=== PATIENT | female | born 1945 | race Caucasian/White ===

== ENCOUNTER 2016-11-02 18:24 | Emergency (ER) | payer MEDICARE ==
[2016-11-02 18:37] VITALS: BP 138/72
[2016-11-02] MEDS ORDERED: Acetaminophen TAB* 325 MG PO ONE (18:59)
--- NOTE | 2016-11-02 19:48 | RAD ---
INDICATION: Atraumatic pain of the left shoulder COMPARISON: Chest x-ray dated February 16, 2016 TECHNIQUE: PA and lateral views of the chest and 4 views left shoulder were obtained. FINDINGS: The heart and mediastinum are normal in size and contour. Again seen is mild ectatic curvature of the thoracic aorta. The lungs are grossly clear. There is no evidence of large pleural effusion. There is no radiographic evidence of free air beneath the diaphragm 4 views of the left shoulder exhibit the bones to be well corticated and appropriately aligned. No fracture or dislocation is identified. IMPRESSION: 1. NO RADIOGRAPHIC EVIDENCE OF ACUTE CARDIOPULMONARY DISEASE. 2 RADIOGRAPHICALLY NORMAL LEFT SHOULDER.
--- NOTE | 2016-11-02 20:23 | UC ---
Melodie Byrne Edward, scribed for Quentin Mendez MD on 11/02/16 at 1847 . Upper Extremity HPI - HPI Summary HPI Summary: 71 y/o female presents to [facility] c/o LUE pain for the last 3-4 days. The pain starts in the upper L arm and shoots down to the fingers. Pain is described as a shooting pain rated at an 8/10 in severity at triage; it is aggravated by movement of the arm. Patient denies any specific injury. Associated sx: swelling and pain in the L shoulder. Denies neck pain. PMHx arthritis and tendonitis. Patient has taken Advil for pain. - History of Current Complaint Chief Complaint: UCUpperExtremity Stated Complaint: ARM PAIN Time Seen by Provider: 11/02/16 18:45 Hx Obtained From: Patient Onset/Duration: Sudden Onset, Lasting Days - 3-4 days, Still Present Severity Initially: Severe Severity Currently: Severe Pain Intensity: 8 Pain Scale Used: 0-10 Numeric Location Of Pain: Is Discrete @ - L shoulder, Radiates To - Down arm to fingers Character: Sharp - Shooting pain Aggravating Factor(s): Movement Associated Signs And Symptoms: Positive: Swelling - L shoulder - Allergies/Home Medications Allergies/Adverse Reactions: Allergies Allergy/AdvReac Type Severity Reaction Status Date / Time Amoxicillin [From Augmentin] Allergy Rash Verified 11/02/16 18:37 Clarithromycin [From Biaxin] Allergy Rash Verified 11/02/16 18:37 Clavulanic Acid Allergy Rash Verified 11/02/16 18:37 [From Augmentin] Moxifloxacin [From Avelox] Allergy Rash Verified 11/02/16 18:37 Sulfa Drugs Allergy Rash Verified 11/02/16 18:37 Home Medications: Home Medications Aspirin Low Dose CHEW TAB* [Aspirin Low Dose TAB*] 81 mg PO DAILY 11/02/16 [ History Confirmed 11/02/16] Atorvastatin* [Lipitor*] 10 mg PO DAILY 11/02/16 [History Confirmed 11/02/16] Docusate-Senna* PRN 11/02/16 [History] Ibuprofen TAB* [Advil TAB*] 400 mg PO PRN 11/02/16 [History] Mirtazapine TAB* [Remeron TAB*] 15 mg PO PRN 11/02/16 [History] Propranolol TAB* [Inderal TAB*] 10 mg PO DAILY 11/02/16 [History Confirmed 11/02] Tamsulosin CAP* [Flomax CAP*] 0.4 mg PO DAILY 11/02/16 [History Confirmed ] PMH/Surg Hx/FS Hx/Imm Hx - Additional Past Medical History Additional PMH: Positive: arthritis, tendonitis, Previously Healthy: No Cardiovascular History: Hypertension Psychological History: Anxiety, Depression, Other - Dementia Other Psychological History: . Other History Of: Negative For: Anticoagulant Therapy - Surgical History Surgical History: Yes Surgery Procedure, Year, and Place: RIGHT KNEE REPLACEMENT 2012 [place]. LEFT OOPHERECTOMY 20 +YRS AGO. ORIF R HAND [facility] - Family History Known Family History: Positive: Cardiac Disease, Respiratory Disease Negative: Renal Disease - Social History Alcohol Use: Occasionally Substance Use Type: None Smoking Status (MU): Former Smoker Type: Cigarettes Amount Used/How Often: 3 cigs daily Length of Time of Smoking/Using Tobacco: 50 YRS Have You Smoked in the Last Year: No When Did the Patient Quit Smoking/Using Tobacco: 01/05/15 - Immunization History Most Recent Influenza Vaccination: Unknown Most Recent Tetanus Shot: Unknown Most Recent Pneumonia Vaccination: Unknown Review of Systems Constitutional: Negative Skin: Negative Eyes: Negative ENT: Negative Respiratory: Negative Cardiovascular: Negative Gastrointestinal: Negative Genitourinary: Negative Motor: Negative Neurovascular: Negative Musculoskeletal: Arthralgia - L shoulder pain, Edema - L shoulder, Myalgia - L upper arm pain radiating down the arm to the fingers, Other: - Negative: neck pain Neurological: Negative Psychological: Negative All Other Systems Reviewed And Are Negative: Yes Physical Exam Triage Information Reviewed: Yes Appearance: Well-Appearing, Pain Distress - Mild pain distress Vital Signs: Initial Vital Signs Temp 99.4 F 11/02/16 18:31 Pulse 75 11/02/16 18:31 Resp 16 11/02/16 18:31 BP 138/72 11/02/16 18:31 Pulse Ox 97 11/02/16 18:31 Vital Signs Reviewed: Yes Eyes: Positive: Conjunctiva Clear ENT: Positive: Normal ENT inspection Neck: Positive: Supple, Nontender Respiratory: Positive: Lungs clear, Normal breath sounds, No respiratory distress Cardiovascular: Positive: RRR, Pulses Normal, Brisk Capillary Refill Abdomen Description: Positive: Nontender, Soft Musculoskeletal: Positive: Strength Intact - 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 All movements are less on L shoulder compared to R shoulder. Internal rotation with R arm - T5; L arm T12 Neurological Exam: Normal Neurological: Positive: Alert Psychological Exam: Normal Psychological: Positive: Age Appropriate Behavior Skin Exam: Normal Diagnostics - Radiology SHOULDER XRAY Xray Interpretation: No Acute Changes - 1. NO RADIOGRAPHIC EVIDENCE OF ACUTE CARDIOPULMONARY DISEASE. 2 RADIOGRAPHICALLY NORMAL LEFT SHOULDER. Radiology Interpretation Completed By: Radiologist CHEST XRAY Xray Interpretation: No Acute Changes - 1. NO RADIOGRAPHIC EVIDENCE OF ACUTE CARDIOPULMONARY DISEASE. 2 RADIOGRAPHICALLY NORMAL LEFT SHOULDER. Radiology Interpretation Completed By: Radiologist Upper Extremity Course/Dx - Course Course Of Treatment: MEDICATIONS REVIEWED ON VISIT. PAIN WITH SHOULDER ROM. SHOULDER ROM DECREASED. NO WEAKNESS/NUMBNESS ON EXAM. NORMAL PULSE/CAPILLARY REFILL. DISCUSSED RESULTS WITH PATIENT/. PATIENT HAS PARKINSONS SO, NO SLING THIS WOULD INCREASE THE RISK ON INJURY. PATIENT WILL TAKE NSAIDS AND F /U PMD. DISCUSSED TO GET SEEN AGAIN FOR ANY NEUROGENIC OR CIRCULATORY SIGNS. - Differential Dx/Diagnosis Provider Diagnoses: LEFT SHOULDER PAIN WITH PERIFERAL RADICULOPATHY. Discharge - Discharge Plan Condition: Stable Disposition: HOME Patient Education Materials: Shoulder Pain (ED) Referrals: Angela Leal MD [Primary Care Provider] - Additional Instructions: FOLLOW UP WITH YOUR DOCTOR. GET RECHECKED FOR ANY WORSENING OF YOUR CONDITION; WEAKNESS, NUMBNESS, PAIN, POOR CIRCULATION OR QUESTIONS OR CONCERNS. The documentation as recorded by the Melodie huynh Edward accurately reflects the service I personally performed and the decisions made by , Quentin Mendez MD.
== END 2016-11-02 20:15 | disposition home or self-care (01) ==
LOC: UCEAST 18:24
DX: M25.512 Pain in left shoulder (principal); M54.10 Radiculopathy, site unspecified; I10 Essential (primary) hypertension; M19.90 Unspecified osteoarthritis, unspecified site; M77.9 Enthesopathy, unspecified; F41.8 Other specified anxiety disorders; F03.90 Unspecified dementia, unspecified severity, without behavioral disturbance, psychotic disturbance, mood disturbance, and anxiety; Z87.891 Personal history of nicotine dependence
CPT/HCPCS: 71020; 99212; A9270-GY; G0463

== ENCOUNTER 2018-04-04 17:11 | Inpatient (IN) | payer MEDICARE ==
[2018-04-04] MEDS ORDERED: NS 0.9% 1000 ML* 1,000 ML IV ONE (17:21)
[2018-04-04] MEDS ORDERED: Cefepime 2 GM in Dextrose(*) 2 GM/50 ML BAG IV ONE (17:41)
--- NOTE | 2018-04-04 17:44 | ED ---
GI/ HPI - HPI Summary HPI Summary: A 73 y/o female presents to [facility] with a chief complaint of E. coli in her urine since her urinalysis at [facility] on 04/03/18. Pt has a Hx of UTI. She also fell down the steps on 04/02/18 and was found to have an intracranial bleed. She was reportedly unconscious for a few minutes. She denies any N/V, fevers, chills, CP or SOB. Today, on 04/04/18 she fell down onto her couch due to some dizziness. Her family members also report her being groggy, disoriented and confused, but they state that the confusion is normal. She also has bruises all over her body. 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 Onset/Duration: Started Days Ago, Still Present Timing: Constant Severity: Severe Current Severity: Severe Pain Intensity: 8 - out of 10 Pain Characteristics: Other: - confused, groggy and disoriented Associated Signs and Symptoms: Positive: Weakness, Syncope, UTI Symptoms - Additional Pertinent History Primary Care Physician: [id number] - Allergy/Home Medications Allergies/Adverse Reactions: Allergies Allergy/AdvReac Type Severity Reaction Status Date / Time amoxicillin [From Augmentin] Allergy Rash Verified 04/04/18 20:41 clarithromycin Allergy Rash Verified 04/04/18 20:41 clavulanic acid Allergy Rash Verified 04/04/18 20:41 [From Augmentin] moxifloxacin Allergy Rash Verified 04/04/18 20:41 Sulfa (Sulfonamide Allergy Rash Verified 04/04/18 20:41 Antibiotics) Home Medications: Home Medications Carbidopa/Levodop 25/100 MG(*) [Sinemet 25/100 TAB(*)] 3 tab PO TID 04/04/18 [ History Confirmed 04/04/18] Ciprofloxacin TAB* [Cipro 250 MG Tab*] 250 mg PO BID 04/04/18 [History Confirmed 04/04/18] Mirtazapine TAB* [Remeron TAB*] 15 mg PO BEDTIME 04/04/18 [History Confirmed ] Omeprazole CAP* [Prilosec CAP* 20 MG] 40 mg PO DAILY 04/04/18 [History Confirmed 04/04/18] Propranolol TAB* [Inderal TAB*] 10 mg PO DAILY 04/04/18 [History Confirmed 04/04] Sertraline* [Zoloft*] 150 mg PO DAILY 04/04/18 [History Confirmed 04/04/18] oxyCODONE TAB* [Roxycodone TAB 5 mg*] 5 mg PO Q4H PRN MDD 6 tabs 04/04/18 [ History Confirmed 04/04/18] PMH/Surg Hx/FS Hx/Imm Hx Endocrine/Hematology History: Denies: Hx Anticoagulant Therapy, Hx Diabetes, Hx Systemic Lupus Erythematosus, Hx Thyroid Disease Cardiovascular History: Reports: Hx Hypertension Denies: Hx Congestive Heart Failure, Hx Pacemaker/ICD Respiratory History: Reports: Hx Chronic Obstructive Pulmonary Disease (COPD) Denies: Hx Asthma GI History: Denies: Hx Ulcer History: Reports: Other Problems/Disorders - UTI Denies: Hx Dialysis, Hx Renal Disease Musculoskeletal History: Reports: Hx Arthritis - RIGHT KNEE, Other Musculoskeletal History Denies: Hx Rheumatoid Arthritis, Hx Osteoporosis Comment Only: Hx Tendonitis - Osteoarthritis Sensory History: Reports: Hx Cataracts - BILATERAL, Hx Contacts or Glasses, Hx Deafness - L ear Denies: Hx Hearing Aid Opthamlomology History: Reports: Hx Cataracts - BILATERAL, Hx Contacts or Glasses Neurological History: Reports: Hx Dementia, Other Neuro Impairments/Disorders - PARKINSON'S Psychiatric History: Reports: Hx Anxiety, Hx Depression, Hx Bipolar Disorder Denies: Hx Attention Deficit Hyperactivity Disorder, Hx Eating Disorder, Hx Panic Disorder, Hx Post Traumatic Stress Disorder, Hx Inpatient Treatment, Hx Community Mental Health Tx, Hx Schizophrenia, Hx Suicide Attempt, Hx of Violent Episodes Against Others, Hx Substance Abuse, Other Psychiatric Issues/Disorders - Cancer History Hx Chemotherapy: No Hx Radiation Therapy: No - Surgical History Surgery Procedure, Year, and Place: RIGHT KNEE REPLACEMENT 2012 [place]. LEFT OOPHERECTOMY 20 +YRS AGO. ORIF R HAND [facility] Hx Anesthesia Reactions: No Infectious Disease History: No Infectious Disease History: Denies: Hx Clostridium Difficile, Hx Hepatitis, Hx Human Immunodeficiency Virus (HIV), Hx of Known/Suspected MRSA, Hx Shingles, Hx Tuberculosis, Hx Known/ Suspected VRE, Hx Known/Suspected VRSA, History Other Infectious Disease, Traveled Outside the [place] in Last 30 Days - Family History Known Family History: Positive: Cardiac Disease, Respiratory Disease Negative: Renal Disease - Social History Alcohol Use: Occasionally Substance Use Type: Reports: None Hx Tobacco Use: No Smoking Status (MU): Former Smoker Type: Cigarettes Amount Used/How Often: 3 cigs daily Length of Time of Smoking/Using Tobacco: 50 YRS Have You Smoked in the Last Year: No Review of Systems Negative: Fever, Chills Negative: Chest Pain Negative: Shortness Of Breath Negative: Vomiting, Nausea Genitourinary: Other - positive: E. coli in urine Positive: Other - Positive: Ecchymosis Neurological: Other - positive: groggy, disoriented and confused All Other Systems Reviewed And Are Negative: Yes Physical Exam - Summary Physical Exam Summary: VITAL SIGNS: Reviewed. GENERAL: Patient is a well-developed and nourished FEMALE who is lying comfortable in the stretcher. Patient is not in any acute respiratory distress. HEAD AND FACE: No signs of trauma. No ecchymosis or skull depressions. No sinus tenderness. EYES: PERRLA, EOMI x 2, No injected conjunctiva, no nystagmus. EARS: Hearing grossly intact. Ear canals and tympanic membranes are within normal limits. MOUTH: Oropharynx within normal limits. NECK: Supple, trachea is midline, no adenopathy, no JVD, no carotid bruit, no c- spine tenderness, neck with full ROM. CHEST: Symmetric, no tenderness at palpation LUNGS: Clear to auscultation bilaterally. No wheezing or crackles. CVS: Regular rate and rhythm, S1 and S2 present, no murmurs or gallops appreciated. ABDOMEN: Soft, non-tender. No signs of distention. No rebound no guarding, and no masses palpated. Bowel sounds are normal. EXTREMITIES: Multiple hematomas on her back. NEURO: Patient is at baseline with her Parkinson's and dementia. SKIN: Dry and warm Triage Information Reviewed: Yes Vital Signs On Initial Exam: Initial Vitals Temp Pulse Resp BP Pulse Ox 98.8 F 65 20 92/74 94 04/04/18 17:26 18 17:26 18 17:26 18 17:26 18 17:26 Vital Signs Reviewed: Yes Diagnostics - Vital Signs Vital Signs Temp Pulse Resp BP Pulse Ox 04/04/18 17:26 98.8 F 65 20 92/74 94 - Laboratory Result Diagrams: 04/04/18 17:48 04/04/18 17:48 Lab Statement: Any lab studies that have been ordered have been reviewed, and results considered in the medical decision making process. - Radiology CXR Radiology Interpretation Completed By: Radiologist Summary of Radiographic Findings: No evidence for acute disease. ED physician has reviewed this imgaing report. Re-Evaluation - Re-Evaluation First Eval Re-Evaluation Time: 19:40 Change: Unchanged Comment: Discussed plan for patient. GIGU Course/Dx - Course Assessment/Plan: A 73 y/o female presents to [facility] with a chief complaint of E. coli in her urine since her urinalysis at [facility] on 04/03/18. Pt has a Hx of UTI. She also fell down the steps on 04/02/18 and was found to have an intracranial bleed. She was reportedly unconscious for a few minutes. She denies any N/V, fevers, chills, CP or SOB. Today, on 04/04/18 she fell down onto her couch due to some dizziness. Her family members also report her being groggy, disoriented and confused, but they state that the confusion is normal. She also has bruises all over her body. Blood work without any significant abnormality except for slight anemia, glucose 125, CRP of 19.05, positive nitrates significant for UTI. The patient's culture is only sensitive to IV antibiotics. Therefore the patient was given cefepime and the patient will be admitted to the hospital services. I discussed the case with Dr. Rodriguez from the hospitalist services who will be admitting the patient to her services for further workup and management. The patient at this point is hemodynamically stable alert and oriented 3. - Diagnoses Provider Diagnoses: UTI (urinary tract infection) - Physician Notifications Discussed Care Of Patient With: Hermelinda Rodriguez Time Discussed With Above Provider: 19:45 Instructed by Provider To: Admit As Inpatient Discharge - Sign-Out/Discharge Documenting (check all that apply): Patient Departure - admit - Discharge Plan Condition: Fair Disposition: ADMITTED TO [facility] - Billing Disposition and Condition Condition: FAIR Disposition: Admitted to [facility] - Attestation Statements Document Initiated by Scribe: Yes Documenting Scribe: Wei Sher Provider For Whom Scribe is Documenting (Include Credential): Isidro Garvey, MD Scribe Attestation: I, Wei Sher, scribed for Isidro Garvey MD on 04/04/18 at 2110. Scribe Documentation Reviewed: Yes Provider Attestation: The documentation as recorded by the scribe, Wei Sher accurately reflects the service I personally performed and the decisions made by me, Isidro Garvey MD Status of Scribe Document: Viewed
[2018-04-04 18:19] LABS: ABS Basophils 0 10^3/ul (0-0.2); ABS Eosinophils 0.5 10^3/ul (0-0.6); ABS Lymphocytes 1.9 10^3/ul (1.0-4.8); ABS Monocytes 0.8 10^3/ul (0-0.8); ABS Neutrophils 7.2 10^3/ul (1.5-7.7); ABS Nucleated RBC 0 10^3/ul; Eosinophil % 4.6 %; Hematocrit 32 % (35-47); Hemoglobin 10.5 g/dl (12.0-16.0); Lymphocyte % 18.2 %; Mean Corpuscular HGB Conc 33 g/dl (31-36); Mean Corpuscular Hemoglobin 32 pg (27-31); Mean Corpuscular Volume 97 fL (80-97); Mean Platelet Volume 9.8 fL (7.4-10.4); Nucleated Red Blood Cells % 0; Platelet Count 288 10^3/ul (150-450); Red Cell Distribution Width 13 % (10.5-15); White Blood Count 10.4 10^3/ul (3.5-10.8)
[2018-04-04 18:20] LABS: Urine Appearance Turbid; Urine Blood Negative (Negative); Urine Color Yellow; Urine Ketones Trace (Negative); Urine Protein Negative (Negative); Urine Red Blood Cell Absent (Absent); Urine Specific Gravity 1.012 (1.010-1.030); Urine Urobilinogen Negative (Negative); Urine White Blood Cell 3+(>20/hpf) (Absent)
[2018-04-04 18:35] LABS: EGFR Non-African American 86.8 (>60)
[2018-04-04] MEDS ORDERED: Ondansetron INJ* 2 MG/ML VIAL IV PRN (20:31)
[2018-04-04] MEDS ORDERED: Acetaminophen TAB* 325 MG PO PRN (20:31)
[2018-04-04] MEDS ORDERED: clonazePAM TAB(*) 0.5 MG PO PRN (20:34)
[2018-04-04] MEDS ORDERED: NS 0.9% 1000 ML* 1,000 ML IV SCH (20:45)
[2018-04-04] MEDS ORDERED: Carbidopa/Levodop 25/100 MG TAB(*) PO SCH (21:00)
[2018-04-04] MEDS ORDERED: Albuterol 2.5 MG/3 ML NEB.SOL* (0.083%) INH PRN (21:11)
[2018-04-04 21:22] LABS: Lithium 0.74 mmol/L (0.6-1.2)
[2018-04-04] MEDS: Mirtazapine TAB* 15 MG PO SCH (22:29)
[2018-04-04] MEDS: lamoTRIgine TAB(*) 100 MG PO SCH (22:29)
[2018-04-04] MEDS: CMCS:Lithium Carbonate ER (NF) 300 MG TAB.ER PO SCH (22:29)
[2018-04-04] MEDS: Polyethylene Glycol 3350* 17 GM PACKET PO SCH (22:43)
--- NOTE | 2018-04-04 23:29 | HP ---
CC: Dr. Angela Leal; Dr. Cruz; Dr. Sharp; Dr. Abbott * HISTORY AND PHYSICAL: DATE OF ADMISSION: 04/04/18 PRIMARY CARE PROVIDER: Dr. Angela Leal. CONSULTING ID SPECIALIST: Dr. Cruz. ATTENDING PROVIDER: Hermelinda Rodriguez MD * (DICTATED BY LITO ARCE NP) CHIEF COMPLAINT: Abnormal UA. HISTORY OF PRESENT ILLNESS: Ms. Nelson is a 73-year-old female patient, who has a history of Parkinson's, COPD. She carries a history of dementia, arthritis, depression, and bipolar disorder. She is coming into the ED today stating that 3 days ago, she was walking up the stairs, it was noted by her that her shoe was on the 7th stair and the patient was found at the bottom of the stairs. She had fallen. He was concerned, they called 911 and the patient was brought directly to a trauma center because of the fall, and she had significant bruising along the back of her right shoulder and her right arm, and she had hit her head and had a laceration. She was evaluated there, was found to have an intracranial hemorrhage, was kept overnight, had serial CT scans according to the and was sent home, but while there, they socrates a UA and the cultures came back today positive for E. coli, which had a significant resistance. The patient when asking her she said that she did notice that last few days, she had been feeling a little more weaker. Her noted that she has had intermittent episodes of confusion, very typical of her UTI presentation. She has not had any dysuria or frequency. She did not have any abdominal pain or flank pain. No fevers or chills. No vomiting or diarrhea. No abdominal discomfort. Because of possible ESBL UTI, the resistant E. coli, we were asked to evaluate for admission. PAST MEDICAL HISTORY: Significant for: 1. Parkinson's. 2. COPD. 3. Dementia. 4. Osteoarthritis. 5. Depression. 6. Bipolar. PAST SURGICAL HISTORY: 1. She has had a right total knee. 2. She has had an oophorectomy. 3. She has had a right hand ORIF. MEDICATIONS: Home meds include: 1. Aspirin 81 mg daily. 2. Klonopin 0.5 mg p.o. b.i.d. 3. Prilosec 40 mg daily. 4. Lajas 300 mg p.o. b.i.d. 5. Flomax 0.4 mg a day. 6. Carbidopa and levodopa 3 tablets p.o. t.i.d. 7. Zoloft 150 mg p.o. daily. 8. Propranolol 10 mg daily. 9. Remeron 15 mg at bedtime. 10. Cipro 250 mg p.o. b.i.d. 11. Oxycodone 5 mg every 4 hours as needed. 12. Lamictal 100 mg p.o. b.i.d. ALLERGIES TO MEDICATIONS: Include AMOXICILLIN, BIAXIN, AUGMENTIN, AVELOX, and SULFA. FAMILY HISTORY: Mother had a history of Parkinson's. Father had a history of COPD. SOCIAL HISTORY: She is a former smoker. She does not drink alcohol. Surrogate decision maker is her . REVIEW OF SYSTEMS: There is no documented fever. She denied any significant weight change. There is no double vision. She denies having any ear discharge. There is no rhinorrhea. There was no sore throat. There is no thyroid enlargement. She denied having any chest pain. There is no orthopnea. There is no nocturnal dyspnea. She denies having any abdominal pain. There was no nausea, no vomiting. There has been no report of dysuria, no frequency. No seizure, there was no loss of consciousness. No pruritus and no skin ulcerations. Review of 14 systems completed, all others negative. PHYSICAL EXAMINATION GENERAL: At this time, Ms. Nelson is a 73-year-old female patient. She is sitting in the ED stretcher. She does not appear to be in any acute distress. She appears to be well-nourished. She appears to be well-developed. VITAL SIGNS: Blood pressure 117/76, pulse 59, respirations 20, O2 sat 94%, temperature 98.8. HEENT: Head: Atraumatic, normocephalic. Eyes: EOMs are intact. Sclerae anicteric and not pale. Throat: Oral mucosa appears to be moist. No oropharyngeal erythema. NECK: Supple. LUNGS: Clear to auscultation bilaterally. No wheezes, rales, or rhonchi. HEART: Sounds S1, S2. She had a regular rate and rhythm. No murmurs, rubs, or gallops. ABDOMEN: Soft. It was flat and nontender. No CVA tenderness. EXTREMITIES: Pulses were 2+ throughout. NEUROLOGIC: She is awake, she is alert, she is oriented x3. Her speech is clear. Tongue midline. She has no gross focal deficits. SKIN: Her skin is intact. She has a significant amount of ecchymosis noted to the right shoulder blade along the biceps and into the clavicle from the fall. Otherwise skin intact. DIAGNOSTIC STUDIES/LAB DATA: WBC of 10.4, RBC of 3.30, hemoglobin of 10.5, hematocrit of 32, and platelet count of 288. Sodium was 138, potassium 3.8, chloride of 105, bicarb was 29, BUN 12, creatinine 0.67, glucose 125, lactate 1.8, calcium 10.3. Total bili is 0.8, AST 9, ALT less than 30, alk phos 117. CRP 19. Lipase was negative. Urine showed trace ketones, positive nitrites, 3+ leukocyte esterase, 3+ wbc's, 3+ bacteria. She had a chest x-ray obtained today, which revealed no evidence for acute disease. Old medical records reviewed. ASSESSMENT AND PLAN: Ms. Nelson is a 73-year-old female patient coming into the ED today with complaints of 3 days ago with a fall, who was admitted to [facility] and was found to have intracranial hemorrhage and while there found to have urinalysis that grew out ESBL. She was directed today after discharge to the nearest facility for IV antibiotic therapy. She will be admitted on an inpatient status for: 1. Possible ESBL urinary tract infection. I will touch base with Dr. Cruz. I am placing her on cefepime. I do have the sensitivities here in the chart from [facility]. We will get in touch with him to help us with duration and possibly p.o. therapy and I will continue to follow. Fortunately, she does not appear to be septic. At this point, she appears to be stable. I will hydrate her and will continue to follow. 2. Recent fall with intracranial hemorrhage. I am getting the records from [facility]. I am repeating the CT brain today. We will get frequent neuro checks , place her on telemetry, and I have ordered PT and OT evaluation. 3. Parkinson's. Continue meds as prescribed. 4. Chronic obstructive pulmonary disease. We will continue her meds as prescribed. Appears to be stable. 5. Depression with bipolar. Continue her current medical regimen. I will check her Lamictal and lithium levels. 6. DVT prophylaxis. I have ordered SCDs. 7. Code status. Full code. 8. Fluids, electrolytes, and nutrition. She can have a regular diet. TIME SPENT: On the admission was 60 minutes, greater than half the time was spent [id number] with the patient obtaining my history and physical, other half the time was spent going over the plan of care with the patient and implementing the plan of care. I did discuss the plan of care with my attending, Dr. Rodriguez; she is in agreement. LITO ARCE, SLAVA [id number]/CPS #: [id number] NEMO
[2018-04-05] MEDS: Cefepime 2 GM in Dextrose(*) 2 GM/50 ML BAG IV SCH ×2 (05:42→19:27)
[2018-04-05 06:32] LABS: ABS Basophils 0 10^3/ul (0-0.2); ABS Eosinophils 0.5 10^3/ul (0-0.6); ABS Lymphocytes 1.5 10^3/ul (1.0-4.8); ABS Monocytes 0.6 10^3/ul (0-0.8); ABS Neutrophils 4.9 10^3/ul (1.5-7.7); ABS Nucleated RBC 0 10^3/ul; Eosinophil % 6.7 %; Hematocrit 28 % (35-47); Hemoglobin 9.7 g/dl (12.0-16.0); Lymphocyte % 19.4 %; Mean Corpuscular HGB Conc 34 g/dl (31-36); Mean Corpuscular Hemoglobin 33 pg (27-31); Mean Corpuscular Volume 97 fL (80-97); Mean Platelet Volume 9.3 fL (7.4-10.4); Nucleated Red Blood Cells % 0; Platelet Count 256 10^3/ul (150-450); Red Blood Count 2.92 10^6/ul (4.00-5.40); Red Cell Distribution Width 13 % (10.5-15); White Blood Count 7.6 10^3/ul (3.5-10.8)
[2018-04-05 06:33] LABS: INR 1.05 (0.77-1.02)
[2018-04-05 06:46] LABS: EGFR Non-African American 104.6 (>60)
[2018-04-05] MEDS: Omeprazole CAP* 20 MG PO SCH (07:36)
[2018-04-05] MEDS: Carbidopa/Levodop 25/100 MG TAB(*) PO SCH ×3 (07:46→17:42)
[2018-04-05] MEDS: Sertraline* 50 MG TAB PO SCH (07:49)
[2018-04-05] MEDS: Tamsulosin CAP* 0.4 MG PO SCH (07:52)
[2018-04-05] MEDS: CMCS:Lithium Carbonate ER (NF) 300 MG TAB.ER PO SCH ×2 (07:53→20:39)
[2018-04-05] MEDS: lamoTRIgine TAB(*) 100 MG PO SCH ×2 (07:56→20:39)
[2018-04-05] MEDS: Polyethylene Glycol 3350* 17 GM PACKET PO SCH (07:57)
[2018-04-05] MEDS: Propranolol TAB* 10 MG PO SCH (08:03)
[2018-04-05] MEDS: Tiotropium CAP.INH* CAP.INH/18 MCG (USE ORDER SET !) INH SCH (08:04)
[2018-04-05] MEDS: Mometasone/Formoter 200/5 MDI INH SCH ×2 (08:05→20:31)
[2018-04-05] MEDS ORDERED: Spiriva Inhaler DEVICE* 1 EACH DEVICE INH SCH (09:00)
--- NOTE | 2018-04-05 15:38 | PN ---
Subjective Date of Service: 04/05/18 Interval History: HOSPITALIST PROGRESS NOTE Patient seen and examined at bedside. Care reviewed and d/w Reena Cheng RN. She offers no complaints. She states when she was admitted to [facility] she had no urinary symptoms and still doesn't. Right frontal RIVERA is unchanged. Denies N/ V. Family History: Unchanged from Admission Social History: Unchanged from Admission Past Medical History: Unchanged from Admission Objective Active Medications: Acetaminophen (Tylenol Tab*) 650 mg PO Q4H PRN PRN Reason: FEVER/PAIN Albuterol (Ventolin 2.5 Mg/3 Ml Neb.Sabine*) 2.5 mg INH Q2H PRN PRN Reason: SOB/WHEEZING Carbidopa/Levodopa (Sinemet 25/100 Tab(*)) 3 tab PO TID@0800,1200,1600 [facility] Last Admin: 04/05/18 11:33 Dose: 3 tab Clonazepam (Klonopin Tab(*)) 0.5 mg PO BID PRN PRN Reason: ANXIETY Device (Tiotropium Inhaler Device*) 1 each INH .USE w/ SPIRIVA CAPS [facility] Cefepime HCl (Maxipime 2 Gm In Dextrose Duplex (*)) 2 gm in 50 mls @ 100 mls/ hr IV Q12H [facility] Last Admin: 04/05/18 05:42 Dose: 100 mls/hr Lamotrigine (Lamictal Tab(*)) 100 mg PO BID [facility] Last Admin: 04/05/18 07:56 Dose: 100 mg Shindler Carbonate (Shindler Carbonate Er (Nf)) 300 mg PO BID [facility]; Protocol Last Admin: 04/05/18 07:53 Dose: 300 mg Mirtazapine (Remeron Tab*) 15 mg PO BEDTIME [facility] Last Admin: 04/04/18 22:29 Dose: Not Given Mometasone Furoate/Formoterol Fumar (Dulera 200/5 Mdi*) 2 puff INH BID [facility] Last Admin: 04/05/18 08:05 Dose: 2 puff Omeprazole (Prilosec Cap*) 40 mg PO DAILY@0730 [facility] Last Admin: 04/05/18 07:36 Dose: 40 mg Ondansetron HCl (Zofran Inj*) 4 mg IV Q6H PRN PRN Reason: NAUSEA Polyethylene Glycol/Electrolytes (Miralax*) 17 gm PO DAILY [facility] Last Admin: 04/05/18 07:57 Dose: 17 gm Propranolol HCl (Inderal Tab*) 10 mg PO DAILY [facility] Last Admin: 04/05/18 08:03 Dose: 10 mg Sertraline HCl (Zoloft*) 150 mg PO DAILY [facility] Last Admin: 04/05/18 07:49 Dose: 150 mg Tamsulosin HCl (Flomax Cap*) 0.4 mg PO DAILY [facility] Last Admin: 04/05/18 07:52 Dose: 0.4 mg Tiotropium Alleene (Spiriva Cap.Inh*) 1 cap INH DAILY [facility] Last Admin: 04/05/18 08:04 Dose: 1 cap Vital Signs - 8 hr 04/05/18 04/05/18 04/05/18 08:00 08:05 11:44 Temperature 97.7 F 97.7 F Pulse Rate 73 64 Respiratory 18 18 16 Rate Blood Pressure 118/80 92/56 (mmHg) O2 Sat by Pulse 86 93 Oximetry Oxygen Devices in Use Now: None Appearance: Pleasant lady sitting up in recliner in [facility]. Eyes: No Scleral Icterus Ears/Nose/Mouth/Throat: Mucous Membranes Moist Neck: Trachea Midline Skin: No Rash or Ulcers Neurological: Alert and Oriented x 3, NL Muscle Strength and Tone Result Diagrams: 04/05/18 05:52 04/05/18 05:52 Assess/Plan/Problems-Billing Assessment: Mrs Nelson is a 73yo F with PMH of Parkison's, COPD, dementia, osteoarthritis , depression, recent small frontal bleed after a fall, who presents to ED after being found to have ESBL in the urine at [facility]. - Patient Problems (1) UTI due to extended-spectrum beta lactamase (ESBL) producing Escherichia coli Comment: - She has no urinary symptoms at this time, but her states this is not unusual. - Urine culture from [facility] grew ESBL E. coli 30,000 colonies - unclear to me if true infection or colonization - awaiting ID input. - Continue Cefepime for now. - Renal US showed multiple non obstructing stones and PVR 106ml - awaiting Urology feedback. (2) ICH (intracerebral hemorrhage) Comment: - Small right parietal hemorrhage in the setting of fall - seen at [facility], had serial CTs and discharged home. - Awaiting records from [facility] and X evaluation. - Continue Neuro checks. (3) Parkinson disease Comment: - Continue Sinemet. (4) COPD (chronic obstructive pulmonary disease) Comment: - Stable. - Continue bronchodilators. (5) DVT prophylaxis Comment: - Pharmacological prophylaxis contraindicated in the setting of ICH. - SCDs. (6) Full code status
[2018-04-05] MEDS: Mirtazapine TAB* 15 MG PO SCH (20:39)
--- NOTE | 2018-04-05 21:47 | CONS ---
CONSULTATION REPORT: DATE OF CONSULT: 04/05/18 REQUESTING PROVIDER: Jake Hernandez NP CONSULTING SERVICE: Infectious Disease. REASON FOR CONSULT: E. coli urinary tract infection. IMPRESSION: 1. Recent fall with small intracranial hemorrhage, was at [facility], being monitored for that. A urine culture taken there has come back with 30,000 colonies of E. coli, which is an ESBL associate producer resistant to fluoroquinolones and Bactrim and sensitive to cefepime, carbapenems, aminoglycosides. She was sent in by the staff at [facility] for that. Urinalysis here shows leukocyte esterase and nitrites, no blood. She has no urinary symptoms. Apparently recently, a little bit more confused and low-grade fever before she fell. Bladder ultrasound here is unremarkable. 2. Dementia. 3. Allergy to MOXIFLOXACIN, AUGMENTIN, CLARITHROMYCIN. RECOMMENDATIONS: Cefepime, while she is here as planned, to obtain levels on the urine high enough to kill the organism. If her insurance will cover fosfomycin, that would be the oral option. Have her complete a 5-day course. HISTORY OF PRESENT ILLNESS: This is a 73-year-old with dementia, recently fell , pretty good bruise on her right upper extremity and chest, small intracranial hemorrhage in the frontal lobe. She was taken to [facility]. CT imaging done there. She was followed, stable, discharged. Before she left, they had taken a urine sample because of a few days of malaise and weakness, which the family feels like this is how they know when she has urinary tract infection. She has no complaints of pain today. She cannot provide much of the history, which was obtained instead from discussion with Jake Hernandez NP; review of the medical records; and discussion with the patient's home health aide. PAST MEDICAL HISTORY: 1. Dementia. 2. Parkinson's. 3. COPD. 4. Osteoarthritis. 5. Depression. 6. Bipolar disorder. PAST SURGICAL HISTORY: 1. Status post right knee arthroplasty. 2. Status post oophorectomy. 3. Status post right hand open reduction and internal fixation. ALLERGIES: AMOXICILLIN, CLARITHROMYCIN, MOXIFLOXACIN, SULFA. MEDICATIONS: 1. Tylenol. 2. Sinemet. 3. Cefepime 2 g every 12 hours. 4. Clonazepam. 5. [place]. 6. Lamictal. 7. Mirtazapine. 8. Omeprazole. 9. Propranolol. 10. Sertraline. 11. Tamsulosin. 12. Spiriva. SOCIAL HISTORY: She lives in [place] with her . No sick contacts. Nonsmoker. FAMILY HISTORY: No recurrent infections. REVIEW OF SYSTEMS: All negative except as noted above to a 12-point review of systems. PHYSICAL EXAM: Vital Signs: Temperature of 36.5, heart rate 60, respiratory rate 16, blood pressure 100/56, oxygen saturation 93% on room air. In general, she is awake, not in distress. Neurologic: She is oriented x1. Answers most questions appropriately. Follows all commands. Moves all her extremities. HEENT: There is no conjunctival hemorrhage. Oropharynx without lesions. Neck is supple without mass. Heart is regular rate and rhythm without murmurs, rubs , or gallops. Lungs are clear to auscultation bilaterally. Abdomen: Soft, nontender, nondistended. There are bowel sounds present. There is no flank tenderness or suprapubic tenderness to palpation. Skin: There is no rash or splinter hemorrhage. LABORATORY DATA: White blood cell count 7, hemoglobin 9, platelets 256. Creatinine 0.5. Please see impressions and recommendations as outlined above. Thank you for asking me to see Ms. Nelson in consultation. [id number]/[facility] #: [id number] NEMO
[2018-04-06] MEDS: Cefepime 2 GM in Dextrose(*) 2 GM/50 ML BAG IV SCH (05:58)
[2018-04-06] MEDS: CMCS:Lithium Carbonate ER (NF) 300 MG TAB.ER PO SCH (07:57)
[2018-04-06] MEDS: Carbidopa/Levodop 25/100 MG TAB(*) PO SCH ×2 (07:57→11:46)
[2018-04-06] MEDS: Polyethylene Glycol 3350* 17 GM PACKET PO SCH (07:57)
[2018-04-06] MEDS: Tamsulosin CAP* 0.4 MG PO SCH (07:58)
[2018-04-06] MEDS: Mometasone/Formoter 200/5 MDI INH SCH (07:58)
[2018-04-06] MEDS: Tiotropium CAP.INH* CAP.INH/18 MCG (USE ORDER SET !) INH SCH (07:59)
[2018-04-06] MEDS: Sertraline* 50 MG TAB PO SCH (07:59)
[2018-04-06] MEDS: Omeprazole CAP* 20 MG PO SCH (08:00)
[2018-04-06] MEDS: lamoTRIgine TAB(*) 100 MG PO SCH (08:00)
[2018-04-06] MEDS: Propranolol TAB* 10 MG PO SCH (08:01)
[2018-04-06 14:05] VITALS: BP 105/59
--- NOTE | 2018-04-06 15:30 | CONS ---
CONSULTATION NOTE: DATE OF CONSULT: 04/06/18 HISTORY OF PRESENT ILLNESS: The patient is a very pleasant 73-year-old female who has a past medical history of Parkinson disease, COPD, dementia, arthritis, depression, and bipolar disorder. The patient was recently reported to have sustained a fall 4 days ago from the stairs. She was taken to [facility] and was diagnosed with a small intracranial hemorrhage and was discharged home. The patient was called back because of positive UA findings consistent with UTI, and she is currently admitted for that reason, requested to see the patient by Dr. Kruger regarding significant findings with a small right frontal hemorrhagic contusion. The patient reports that she has no neck or back pain. She denies any headache. She denies any weakness, numbness, or tingling in her extremities. She ambulates at her baseline. She denies any urinary or GI incontinence. The patient is retired. Malawian is the second language for the patient and she is . She is preparing to move to [place] for 3 months as she and her do every winter. PAST MEDICAL HISTORY: Parkinson's, COPD, dementia, osteoarthritis, depression, bipolar. PAST SURGICAL HISTORY: Right total knee surgery, oophorectomy, right hand ORIF. MEDICATIONS: The patient is on: 1. Aspirin 81. 2. Klonopin. 3. Prilosec. 4. [place]. 5. Flomax. 6. Carbidopa and levodopa. 7. Zoloft. 8. Propranolol. 9. Remeron. 10. Cipro. 11. Oxycodone. 12. Lamictal. ALLERGIES: The patient is allergic to AMOXICILLIN, BIAXIN, AUGMENTIN, AVELOX, and SULFA. FAMILY HISTORY: Parkinson disease, COPD. SOCIAL HISTORY: Tobacco, negative. She is a former smoker. Alcohol, negative. Recreational drug use, negative. PHYSICAL EXAM: The patient is not in acute distress. She is awake, alert, and oriented x3. Her pupils are equal and reactive. Cranial nerves II through XII are grossly intact. Motor 4-5/5 in all extremities. No pronator drift. Sensory is grossly intact to light touch. Deep tendon reflexes are +1 bilaterally. No clonus. No Babinski. España's negative. The patient has no pain to palpation of the thoracic and lumbar spine. She has full range of motion of the cervical spine. DIAGNOSTIC STUDIES: The patient had a CT scan of the brain on admission that revealed small right frontal hemorrhagic contusion versus dystrophic calcification. The patient had a repeat CT scan today that does not reveal any changes. ASSESSMENT: The patient is a very pleasant 73-year-old female with recent fall , who was admitted for urinary tract infection with physical findings consistent with a small right frontal hemorrhagic contusion. PLAN: The patient at this point has done extremely well from her head injury. CT scan is stable and no new surgical intervention is needed at this point. The patient is on Klonopin and is treated for her UTI. We will be happy to see the patient in approximately 1 month with a new CT scan of the brain as a followup, or if the patient desires, she may have followup with her PCP. Thank you for allowing us to participate in the care of this patient. Please do not to hesitate to contact our office in case you have any further questions or concerns regarding the care of this patient. [id number]/[facility] #: [id number] NEMO
--- NOTE | 2018-04-07 01:27 | DS ---
CC: Dr. Angela Leal; Dr. Abbott; Dr. Cruz; Dr. Xiao; Dr. Whit Alvarado, [place], [place], phone number [phone] DISCHARGE SUMMARY: DATE OF ADMISSION: 04/04/18 DATE OF DISCHARGE: 04/06/18 PRIMARY CARE PROVIDER: Dr. Angela Leal. UROLOGIST: Dr. Abbott. INFECTIOUS DISEASE SPECIALIST: Dr. Cruz. CONSULTING NEUROSURGEON: Dr. Xiao. NEUROLOGIST: Dr. Whit Alvarado. DISCHARGE DIAGNOSES: 1. Extended-spectrum beta lactamases Escherichia coli urinary tract infection, not Capellan catheter re lated, present on admission. 2. Small right frontal hemorrhagic contusion. SECONDARY DIAGNOSES: 1. Urethral stricture. 2. Neurogenic bladder. 3. Parkinson's disease. 4. Dementia. 5. Chronic obstructive pulmonary disease. 6. Osteoarthritis. 7. Depression. 8. Status post right total knee replacement. 9. Status post oophorectomy. 10. Status post right hand open reduction internal fixation. MEDICATION LIST: 1. Sinemet 25/100 three tablets p.o. t.i.d. 2. Clonazepam 0.5 mg p.o. b.i.d. 3. Fosfomycin 3 g p.o. on 04/06/18, 04/09/18 and 04/12/18. 4. Lamotrigine 100 mg p.o. b.i.d. 5. [place] 300 mg p.o. b.i.d. 6. Mirtazapine 15 mg p.o. at bedtime. 7. Omeprazole 40 mg p.o. daily. 8. Oxycodone 5 mg p.o. q.4 hours p.r.n. pain. 9. Propranolol 10 mg p.o. daily. 10. Sertraline 150 mg p.o. daily. 11. Tamsulosin 0.4 mg p.o. at bedtime. HOSPITAL COURSE: Ms. Nelson is a 73-year-old lady with a past medical history as stated above that on 04/03/18 sustained a fall at home and hit her head. She was seen at [facility] and found to have a small intracranial hemorrhage. She was observed overnight in the emergency room, seen by Neurosurger y, had a repeat CT of the brain and was sent home, but while she was there, she had a urinalysis perf ormed and she was later on called that her urine culture grew ESBL E. coli, and she was advised to co me to the emergency room for evaluation. For more details about her presentation, I refer you to her history and physical. The patient denies urinary complaints, but as per her , she has frequent urinary tract infecti ons including one episode that he describes as severe, last year when they were in [place], requiring admission to the hospital for IV antibiotics. The patient's urine culture from [facility] grew ESBL E. coli 30,000 colonies, but even though she had no urinary symptoms, since she was a little bit more c onfused and had a low-grade fever, it was felt that she would warrant treatment. While in the hospit al, she was on cefepime and she was seen in consultation by Dr. Cruz, who recommended treatment w ith fosfomycin. I contacted covering urologist (Dr. Monet) and after reviewing her records, his recommendation was to straight cath the patient with an 18-Pashto straight cath at least twice to monitor her postvoid residual. They ranged from 150 to 250 mL. I did talk to her that her urinary retention is p robably the cause of her recurrent urinary tract infections. He states that he is aware and that aft er one of her episodes of severe UTI, she had been started on Flomax with good response. Those elevat ed residuals are with Flomax on board at this time. We discussed multiple options including just alexandria chful waiting and followup visit with Dr. Abbott next week or straight cathing at least twice a day at home, but he states that this is not possible since the patient cannot do it due to her parkinsonism and he is not available at home to do it for her. We also discussed the possibility of a Capellan cath eter and although initially he was resistant, he is now agreeable. So the plan is for the patient to be discharged with a Capellan catheter to follow up with Dr. Abbott next week and then decide what is go ing to be the long-term plan as they are planning to go to [place] again before [place] to spend winter. I am concerned with increasing her Flomax dose as this can cause orthostatic hypotension, especially in the setting of dysautonomic dysfunction with her Parkinson's, especially in someone that already h ad a fall with a small intracranial bleed. I will contact Dr. Abbott next week to discuss my concerns . Regarding the intracranial bleed, the patient was seen in consultation by Neurosurgery (Dr. Yusef peres) and he felt that the bleeding was stable and the patient could be discharged home from his point o f view. He recommended a repeat CT of the brain in approximately 1 month and at that point the patie nt will be in [place], so the plans to take her to follow up with Dr. Alvarado. The patient is asymptomatic at this time, pleasantly confused and stable to be discharged home today. Of note, orthostatic vital signs were checked and they were negative. The patient was on aspirin prior to her fall and this was held and it will need to be readdressed whe n she has followup in [place] to decide when to resume it. PHYSICAL EXAMINATION: Vital Signs: Temperature 97.9, heart rate is 53, respiratory rate is 18, oxyg en saturation 99% on room air, blood pressure is 108/71. General: The patient is a pleasant, elderl y lady, lying in bed, in no acute distress. CVS: Normal S1, S2. Regular rate and rhythm. Chest: Breath sounds present bilaterally with no added sounds. Neuro: She is alert and oriented x3. Able to move all 4 extremities. DIET: Regular diet. ACTIVITIES: As tolerated. DISPOSITION: To home. STATUS WHILE IN THE HOSPITAL: Inpatient. Please keep in mind that this is a summarized version of this patient's hospital stay. If you need m ore information, please feel free to call me at [phone] or please obtain full medical records. TIME SPENT: Approximately 45 minutes was spent to complete this discharge. [id number]/[facility] #: [id number]
== END 2018-04-06 17:02 | disposition home or self-care (01) | DRG 690 ==
LOC: ED 17:11 → MEDTELE 20:23
PROVIDERS: ADMIT Internal Medicine; ATTEND Internal Medicine
DX: N39.0 Urinary tract infection, site not specified (principal); F33.9 Major depressive disorder, recurrent, unspecified; G20 Parkinson's disease; J44.9 Chronic obstructive pulmonary disease, unspecified; N31.9 Neuromuscular dysfunction of bladder, unspecified; S06.300A Unspecified focal traumatic brain injury without loss of consciousness, initial encounter; B96.20 Unspecified Escherichia coli [E. coli] as the cause of diseases classified elsewhere; F02.80 Dementia in other diseases classified elsewhere, unspecified severity, without behavioral disturbance, psychotic disturbance, mood disturbance, and anxiety; N35.92 Unspecified urethral stricture, female; Z96.651 Presence of right artificial knee joint; M19.90 Unspecified osteoarthritis, unspecified site; W10.9XXA Fall (on) (from) unspecified stairs and steps, initial encounter; R33.9 Retention of urine, unspecified; Y92.008 Other place in unspecified non-institutional (private) residence as the place of occurrence of the external cause; Z79.82 Long term (current) use of aspirin; Z79.891 Long term (current) use of opiate analgesic; Z79.899 Other long term (current) drug therapy; Z88.1 Allergy status to other antibiotic agents; Z88.2 Allergy status to sulfonamides; Z88.8 Allergy status to other drugs, medicaments and biological substances; Z82.5 Family history of asthma and other chronic lower respiratory diseases; Z82.69 Family history of other diseases of the musculoskeletal system and connective tissue; Z87.891 Personal history of nicotine dependence
CPT/HCPCS: 36415; 70450; 71045; 76770; 80048; 80053; 80175; 80178; 81003; 81015; 83605; 83690; 85025; 85610; 86140; 87040; 87077; 87086; 87186; 94640; 99284; A9270-GY; G8978-GP-CK; G8979-GP-CK; J0692

== ENCOUNTER 2018-10-16 19:55 | Emergency (ER) | payer MEDICARE ==
[2018-10-16] MEDS ORDERED: NS 0.9% 1000 ML** 1,000 ML IV.FLUID IV ONE (20:20)
--- NOTE | 2018-10-16 20:28 | ED ---
Neurological HPI - HPI Summary HPI Summary: Last weekend the pts believed that she was having a UTI and was depressed, she was confused and she couldnt finish a sentence. She has no complaints of pain and is eating a normal amount. Last night the pt was SOB and could only speak in one word responses. She was unable to associate words together to correct items. 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 The stated that she has these symptoms with a UTI but she does not have any urinary symptoms currently. The pt is no ambulatory after a head injury some years ago. She denies fever, coughing, CP, abdominal pain, N/V/ D, diaphoresis, and headaches. She has had no alleviating or aggravating factors. - History of Current Complaint Chief Complaint: EDNeurologicalDeficit Stated Complaint: SLURRED SPEACH,CONFUSED PER Time Seen by Provider: 10/16/18 20:09 Hx Obtained From: Family/Industrial Therapist - Hx From Patient Unobtainable Due To: Altered Mental Status Onset/Duration: Gradual Onset, Started weeks ago - 1, Still Present, Worse Since Pain Intensity: 0 - Additional Pertinent History Primary Care Physician: [id number] - Allergy/Home Medications Allergies/Adverse Reactions: Allergies Allergy/AdvReac Type Severity Reaction Status Date / Time amoxicillin [From Augmentin] Allergy Rash Verified 04/04/18 20:41 clarithromycin Allergy Rash Verified 04/04/18 20:41 clavulanic acid Allergy Rash Verified 04/04/18 20:41 [From Augmentin] moxifloxacin Allergy Rash Verified 04/04/18 20:41 Sulfa (Sulfonamide Allergy Rash Verified 04/04/18 20:41 Antibiotics) PMH/Surg Hx/FS Hx/Imm Hx Previously Healthy: No Endocrine/Hematology History: Denies: Hx Anticoagulant Therapy, Hx Diabetes, Hx Systemic Lupus Erythematosus, Hx Thyroid Disease Cardiovascular History: Reports: Hx Hypertension Denies: Hx Congestive Heart Failure, Hx Pacemaker/ICD Respiratory History: Reports: Hx Chronic Obstructive Pulmonary Disease (COPD) Denies: Hx Asthma GI History: Denies: Hx Ulcer History: Reports: Other Problems/Disorders - UTI Denies: Hx Dialysis, Hx Renal Disease Musculoskeletal History: Reports: Hx Arthritis - RIGHT KNEE, Other Musculoskeletal History Denies: Hx Rheumatoid Arthritis, Hx Osteoporosis Comment Only: Hx Tendonitis - Osteoarthritis Sensory History: Reports: Hx Cataracts - BILATERAL, Hx Contacts or Glasses, Hx Deafness - L ear Denies: Hx Hearing Aid Opthamlomology History: Reports: Hx Cataracts - BILATERAL, Hx Contacts or Glasses Neurological History: Reports: Hx Dementia, Other Neuro Impairments/Disorders - PARKINSON'S Psychiatric History: Reports: Hx Anxiety, Hx Depression, Hx Bipolar Disorder Denies: Hx Attention Deficit Hyperactivity Disorder, Hx Eating Disorder, Hx Panic Disorder, Hx Post Traumatic Stress Disorder, Hx Inpatient Treatment, Hx Community Mental Health Tx, Hx Schizophrenia, Hx Suicide Attempt, Hx of Violent Episodes Against Others, Hx Substance Abuse, Other Psychiatric Issues/Disorders - Cancer History Hx Chemotherapy: No Hx Radiation Therapy: No - Surgical History Surgery Procedure, Year, and Place: RIGHT KNEE REPLACEMENT 2012. LEFT OOPHERECTOMY 20 +YRS AGO. ORIF R HAND [facility] 10 Hx Anesthesia Reactions: No Infectious Disease History: No Infectious Disease History: Denies: Hx Clostridium Difficile, Hx Hepatitis, Hx Human Immunodeficiency Virus (HIV), Hx of Known/Suspected MRSA, Hx Shingles, Hx Tuberculosis, Hx Known/ Suspected VRE, Hx Known/Suspected VRSA, History Other Infectious Disease, Traveled Outside the [place] in Last 30 Days - Family History Known Family History: Positive: Cardiac Disease, Respiratory Disease Negative: Renal Disease - Social History Occupation: Retired Lives: With Family Alcohol Use: Occasionally Hx Substance Use: No Substance Use Type: Reports: None Hx Tobacco Use: Yes Smoking Status (MU): Former Smoker Type: Cigarettes Amount Used/How Often: 3 cigs daily Length of Time of Smoking/Using Tobacco: 50 YRS Have You Smoked in the Last Year: No Physical Exam Vital Signs On Initial Exam: Initial Vitals Temp Pulse Resp BP Pulse Ox 98.6 F 72 16 149/86 87 10/16/18 20:00 10/16/18 20:00 10/16/18 20:00 10/16/18 20:00 10/16/18 20:00 Diagnostics - Vital Signs Vital Signs Temp Pulse Resp BP Pulse Ox 10/16/18 20:00 98.6 F 72 16 149/86 87 - Laboratory Lab Statement: Any lab studies that have been ordered have been reviewed, and results considered in the medical decision making process. Discharge - Discharge Plan Referrals: Angela Leal MD [Primary Care Provider] - - Attestation Statements Document Initiated by Scribe: Yes
--- NOTE | 2018-10-16 20:50 | ED ---
Altered Mental Status - HPI Summary HPI Summary: The pt is a 73 y/o F presenting to [facility] with her and a CC of AMS. Last weekend the pts believed that she was having a UTI and was depressed, she was confused and she couldnt finish a sentence. She has no complaints of pain and is eating a normal amount. Last night the pt was SOB and could only speak in one word responses. She was unable to associate words together to correct items. 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 The stated that she has these symptoms with a UTI but she does not have any urinary symptoms currently. The pt is no ambulatory after a head injury some years ago. She denies fever, coughing, CP, abdominal pain, N/V/D, diaphoresis, and headaches. She has had no alleviating or aggravating factors. - History Of Current Complaint Chief Complaint: EDNeurologicalDeficit Stated Complaint: SLURRED SPEACH,CONFUSED PER Time Seen by Provider: 10/16/18 20:09 Hx Obtained From: Family/Screen Machine Operator - Hx From Patient Unobtainable Due To: Altered Mental Status Onset/Duration: Still Present, Gradually - since last week Timing: Constant, Lasting Weeks - 1 Severity Initially: Mild Severity Currently: Moderate Character: Confusion, Responsiveness - unable to form sentences Aggravating Factor(s): Nothing Alleviating Factor(s): Nothing Associated Signs And Symptoms: Negative: Nausea, Vomiting, Fever, Headache - Allergies/Home Medications Allergies/Adverse Reactions: Allergies Allergy/AdvReac Type Severity Reaction Status Date / Time amoxicillin [From Augmentin] Allergy Rash Verified 04/04/18 20:41 clarithromycin Allergy Rash Verified 04/04/18 20:41 clavulanic acid Allergy Rash Verified 04/04/18 20:41 [From Augmentin] moxifloxacin Allergy Rash Verified 04/04/18 20:41 Sulfa (Sulfonamide Allergy Rash Verified 04/04/18 20:41 Antibiotics) PMH/Surg Hx/FS Hx/Imm Hx Previously Healthy: No Endocrine/Hematology History: Denies: Hx Anticoagulant Therapy, Hx Diabetes, Hx Systemic Lupus Erythematosus, Hx Thyroid Disease Cardiovascular History: Reports: Hx Hypertension Denies: Hx Congestive Heart Failure, Hx Pacemaker/ICD Respiratory History: Reports: Hx Chronic Obstructive Pulmonary Disease (COPD) Denies: Hx Asthma GI History: Denies: Hx Ulcer History: Reports: Other Problems/Disorders - UTI Denies: Hx Dialysis, Hx Renal Disease Musculoskeletal History: Reports: Hx Arthritis - RIGHT KNEE, Other Musculoskeletal History Denies: Hx Rheumatoid Arthritis, Hx Osteoporosis Comment Only: Hx Tendonitis - Osteoarthritis Sensory History: Reports: Hx Cataracts - BILATERAL, Hx Contacts or Glasses, Hx Deafness - L ear Denies: Hx Hearing Aid Opthamlomology History: Reports: Hx Cataracts - BILATERAL, Hx Contacts or Glasses Neurological History: Reports: Hx Dementia, Other Neuro Impairments/Disorders - PARKINSON'S Psychiatric History: Reports: Hx Anxiety, Hx Depression, Hx Bipolar Disorder Denies: Hx Attention Deficit Hyperactivity Disorder, Hx Eating Disorder, Hx Panic Disorder, Hx Post Traumatic Stress Disorder, Hx Inpatient Treatment, Hx Community Mental Health Tx, Hx Schizophrenia, Hx Suicide Attempt, Hx of Violent Episodes Against Others, Hx Substance Abuse, Other Psychiatric Issues/Disorders - Cancer History Hx Chemotherapy: No Hx Radiation Therapy: No - Surgical History Surgery Procedure, Year, and Place: RIGHT KNEE REPLACEMENT 2012 [place]. LEFT OOPHERECTOMY 20 +YRS AGO. ORIF R HAND [facility] 10 Hx Anesthesia Reactions: No - Immunization History Immunizations Up to Date: Yes Infectious Disease History: No Infectious Disease History: Denies: Hx Clostridium Difficile, Hx Hepatitis, Hx Human Immunodeficiency Virus (HIV), Hx of Known/Suspected MRSA, Hx Shingles, Hx Tuberculosis, Hx Known/ Suspected VRE, Hx Known/Suspected VRSA, History Other Infectious Disease, Traveled Outside the [place] in Last 30 Days - Family History Known Family History: Positive: Cardiac Disease, Respiratory Disease Negative: Renal Disease - Social History Occupation: Retired Lives: With Family Alcohol Use: Occasionally Hx Substance Use: No Substance Use Type: Reports: None Hx Tobacco Use: Yes Smoking Status (MU): Former Smoker Type: Cigarettes Amount Used/How Often: 3 cigs daily Length of Time of Smoking/Using Tobacco: 50 YRS Have You Smoked in the Last Year: No Review of Systems Negative: Fever, Skin Diaphoresis Negative: Chest Pain Negative: Cough Negative: Abdominal Pain, Vomiting, Diarrhea, Nausea Negative: Headache Positive: Other - confused, unable to form sentences All Other Systems Reviewed And Are Negative: Yes Physical Exam - Summary Physical Exam Summary: Appearance: Parkinsonian features laying comfortably, awake and alert answers questions correctly Skin: Warm, dry, no obvious rash Eyes: sclera anicteric, no conjunctival pallor ENT: mucous membranes moist, pharynx appears normal Neck: Supple, nontender Respiratory: Clear to auscultation, no signs of respiratory distress Cardiovascular: Normal S1, S2. No murmurs. Normal distal pulses in tibial and radial bilaterally. Abdomen: Soft, nontender, normal active bowel sounds present Musculoskeletal: Normal, Strength/ROM Intact Neurological: A&O to person and place, but not time which her states is normal for her awake and alert, mentation is normal, speech is fluent and appropriate Psychiatric: affect is normal, does not appear anxious or depressed Triage Information Reviewed: Yes Vital Signs On Initial Exam: Initial Vitals Temp Pulse Resp BP Pulse Ox 98.6 F 72 16 149/86 87 10/16/18 20:00 10/16/18 20:00 10/16/18 20:00 10/16/18 20:00 10/16/18 20:00 Vital Signs Reviewed: Yes Diagnostics - Vital Signs Vital Signs Temp Pulse Resp BP Pulse Ox 10/16/18 20:26 95 10/16/18 20:00 98.6 F 72 16 149/86 87 - Laboratory Result Diagrams: 10/16/18 20:42 10/16/18 20:42 Lab Statement: Any lab studies that have been ordered have been reviewed, and results considered in the medical decision making process. Altered Mental Statu Course/Dx - Course Course Of Treatment: The pt is a 73 y/o F presenting to [facility] with her and a CC of AMS. Last weekend the pts believed that she was having a UTI and was depressed, she was confused and she couldnt finish a sentence. She has no complaints of pain and is eating a normal amount. Her PE found that she had Parkinsonian features laying comfortably, awake and alert answers questions correctly, A&O to person and place, but not time which her states is normal for her. Pt is a sign out to Dr. Johnson from Dr. Siu pending a UA at shift change 2200 10/16/18 with a dx of AMS. - Diagnoses Provider Diagnoses: Altered mental status, UTI (urinary tract infection) Discharge - Sign-Out/Discharge Documenting (check all that apply): Patient Departure Patient Received Moderate/Deep Sedation with Procedure: No - Discharge Plan Condition: Good Disposition: HOME Prescriptions: Ciprofloxacin TAB* [Cipro 500 MG TAB*] 500 mg PO BID #14 tab Patient Education Materials: Urinary Tract Infection in Older Adults (ED) Referrals: Angela eLal MD [Primary Care Provider] - If Needed - Billing Disposition and Condition Condition: GOOD Disposition: Home - Attestation Statements Document Initiated by Ingeibe: Yes Documenting Scribe: Paras Roche Provider For Whom Scribe is Documenting (Include Credential): Reinaldo Siu MD Scribe Attestation: Paras Byrne, scribed for Reinaldo Siu MD on 10/18/18 at 0616. Scribe Documentation Reviewed: Yes Provider Attestation: The documentation as recorded by the Paras huynh accurately reflects the service I personally performed and the decisions made by me, Reinaldo Siu MD Status of Scribe Document: Viewed
[2018-10-16 20:54] LABS: ABS Basophils 0.1 10^3/ul (0-0.2); ABS Eosinophils 0.3 10^3/ul (0-0.6); ABS Lymphocytes 1.9 10^3/ul (1.0-4.8); ABS Monocytes 0.7 10^3/ul (0-0.8); ABS Neutrophils 8.5 10^3/ul (1.5-7.7); Eosinophil % 2.8 %; Hematocrit 43 % (35-47); Hemoglobin 14.5 g/dL (12.0-16.0); Lymphocyte % 16.6 %; Mean Corpuscular HGB Conc 34 g/dL (31-36); Mean Corpuscular Hemoglobin 33 pg (27-31); Mean Corpuscular Volume 97 fL (80-97); Mean Platelet Volume 9.4 fL (7.4-10.4); Platelet Count 285 10^3/uL (150-450); Red Blood Count 4.41 10^6 /uL (3.70-4.87); Red Cell Distribution Width 13 % (10-15); White Blood Count 11.4 10^3/uL (3.5-10.8)
[2018-10-16 21:07] LABS: INR 0.97 (0.82-1.09)
[2018-10-16 21:17] LABS: ALT < 3 U/L (7-52); AST 9 U/L (13-39); Albumin 4.2 g/dL (3.2-5.2); Albumin/Globulin Ratio 1.8 (1-3); Alkaline Phosphatase 114 U/L (34-104); Anion Gap 6 mmol/L (2-11); BUN/Creatinine Ratio 14.3 (8-20); Blood Urea Nitrogen 11 mg/dL (6-24); C Reactive Protein 4.97 mg/L (<8.01); CO2 Carbon Dioxide 26 mmol/L (22-32); Calcium 11.1 mg/dL (8.6-10.3); Chloride 106 mmol/L (101-111); EGFR African American 89.4 (>60); EGFR Non-African American 73.9 (>60); Globulin 2.4 g/dL (2-4); Glucose 102 mg/dL (70-100); Sodium 138 mmol/L (135-145); Total Protein 6.6 g/dL (6.4-8.9)
--- OUTSIDE RECORDS SUMMARY | 2018-10-16 21:28 | XMS REPORT | Continuity of Care Document ---
:1945 External Reference #:[id number] Author Name Marisela Archer Care Team Providers Name Role Phone Edie Leal MD Primary Care Physician Unavailable Payers Date Identification Numbers Payment Provider Subscriber Effective: 2018 Policy Number: [id number] [employer] Cyndi S Parthadberg PayID: [id number] [address] [place] [address] Policy Number: [id number] [facility] Cyndi Malagonerg PayID: [id number] [address] [place] [address] Expires: 2018 Policy Number: [id number] Medicare Cyndi S Parthadberg PayID: [id number] [address] [place] [address] Problems Active Problems Provider Date Essential tremor Ysabel Sharp M.D. Onset: 08/06/2013 Spasmodic torticollis Ysabel Sharp M.D. Onset: 08/06/2013 Chronic obstructive lung disease Maria Esther Lobato MD Onset: 12/29/2014 Sleep disorder Maria Esther Lobato MD Onset: 12/29/2014 Chronic obstructive lung disease Maria Esther Lobato MD Onset: 12/30/2014 Secondary parkinsonism Ysabel Sharp M.D. Onset: 02/26/2015 Chronic sphenoidal sinusitis Haris Nelson M.D. Onset: 03/22/2015 Headache Haris Nelson M.D. Onset: 03/22/2015 Obstructive sleep apnea syndrome Maria Esther Lobato MD Onset: 08/24/2015 Encounter for screening for malignant Maria Esther Lobato MD Onset: 03/07/2016 neoplasm of respiratory organs Resolved Problems Essential tremor Ysabel Sharp M.D. Onset: 07/22/2014 Resolved: 02/26/2015 Family History Date Family Member(s) Observation Comments General Multiple Sclerosis (MS) General Parkinson's Disease General Seizure Disorder Father due to at age 79 () Father Asthma Mother due to Dies at age 79 Heart disease () Mother Parkinson's Disease Mother Heart Disease Siblings 1 sister passed with MS ,2 healthy Brothers, 1 sister copd Social History Type Date Description Comments Sex Unknown Marital Status Lives With Occupation Disabled Hand Dominance Left-handed Tobacco Use Start: Unknown End: Former Cigarette Unknown Smoker Smoking Status Reviewed: 09/18/18 Former Cigarette Smoker ETOH Use Drinks Alcoholic special occasions Beverages Rarely only Tobacco Use Start: Unknown End: Patient is a former quit 2012, smoked Unknown smoker approx 45 yrs, 1/2 ppd Recreational Drug Use Denies Drug Use Exercise Type/Frequency Does not exercise Allergies, Adverse Reactions, Alerts Active Allergies Reaction Severity Comments Date Sulfa Urticaria Severe 03/18/2012 Augmentin Urticaria Severe 03/18/2012 Avelox Urticaria Severe 03/18/2012 Biaxin Urticaria Severe 03/18/2012 Medications Active Medications SIG Qnty Indications Ordering Date Provider Oxygen please use o2 at 1units J44.9 Maria Esthermelia Anguloali, 01/11/2018 Misc 2l/min during MD exertion, pls provide pt with portable o2 concentrator Omeprazole 1 by mouth every day 90caps Joey Garsia 09/24/[address] C[address] Nuno Handihaler inhale contents of 1 60caps Maria Esther Lobato, 01/05/2015 capsule via 18mcg Capsules handihaler every day Symbicort 2 puffs twice a day 30.6gm J44.9 Maria Esther Lobato, 12/29/2014 160-4.5mcg/Act Aerosol Sinemet 3 tabs by mouth tid. 710tabs Ysabel Sharp, 11/04/2012 25-100mg take 20 minutes M.D. Tablets prior to breakfast, lunch and dinner. Vitamin B 12 1 sl every day Unknown 100mcg Lozenges Vitamin D3 Complete 1 tab po Unknown Tablets Cranberry daily Unknown 200mg Capsules Probiotic once a day po Unknown Acidophilus Capsules Docusate Sodium & 1 tab po bid Unknown Senna Stimulant Laxative/Stool Softener 8.6-50mg Tablets Advil as needed Unknown 200mg Capsules Aspirin 1 by mouth every day Unknown 81mg Tablets DR Mirtazapine 1 tab by mouth at Unknown 15mg bedtime Tablets Ondansetron 1 po before/after Unknown 4mg meals prn for nausea Tablets Dispers Tamsulosin HCL 1 by mouth every day Unknown 0.4mg Capsules Tylenol prn for pain Unknown 325mg Capsules Oxygen 2 l nc at bedtime Unknown Misc Propranolol HCL 1 po qd Unknown 10mg Tablets Clonazepam 1 po qam and 1 po 20tabs Unknown .5mg qnoon and prn 1/2-1 Tablets tab qhs Zoloft 1 + 1/2 tabs po Unknown 100mg daily Tablets Lamictal twice daily 30tabs Unknown 100mg Tablets [place] [facility] twice a day Unknown 300mg History Medications Ipratropium 1 unit every 6 270ml J44.9 Maria Esther Lobato, 11/23/2015 - [place]/Albuterol hours as needed MD 07/17/2017 Sulfate . Pt was last 0.5-2.5(3)mg/3ML seen 11/23/15 Solution Ipratropium 1 vial in Unknown 11/22/2015 - [place]/Albuterol nebulizer 4 11/23/2015 Sulfate times a day as 0.5-2.5(3)mg/3ML needed for Solution asthma Risperidone 1 tab by mouth 90tabs Joey Garsia 09/24/2015 - 0.5mg Tablets every day Evelin Fagan 11/22/2015 Ventolin HFA 1 unit puff 54gm Maria Esther Lobato, 07/22/2015 - 108(90Base) every 6 hours as 06/21/2016 mcg/Act Aerosol needed Spiriva Respimat 2 puffs every 1units 496 Maria Esther Cheryle, 12/29/2014 - 2.5mcg/Act day 01/05/2015 Aerosol Primidone 1 tab qd 120tabs Ysabel Aron, 11/23/2014 - 50mg Tablets M.D. 11/23/2014 Propranolol HCL take 1 po bid 60tabs Ysabel Sharp, 02/21/2012 - 40mg Tablets M.D. 02/19/2013 Primidone 1 tabs by mouth 30tabs Unknown - 50mg Tablets every night qhs 02/09/2014 Zoloft daily 30tabs Unknown - 250mg Tablets 08/07/2012 Prempro take one tablet 28tabs Unknown - 0.45-1.5mg Tablets by mouth once 06/21/2016 daily Advair Diskus 1 puff po bid 1units Unknown - 250-50mcg/Dose 02/19/2013 Aerosol Fluticasone Propionate 1 spray each 16gm Unknown - nostril daily as 07/15/2015 50mcg/Act Suspension needed Primidone 1 tab po daily 90tabs Unknown - 50mg Tablets 12/30/2012 Primidone 1 tab po daily 90tabs Unknown - 50mg Tablets 02/09/2014 Senna S 1 tablet by Unknown - 8.6-50mg Tablets mouth by mouth 11/29/2017 bid Megestrol Acetate 5ml po bid (Hold Unknown - 40mg/ml 06/28/16) 07/19/2017 Suspension Lactulose 15ml prn tid Unknown - 10GM/15ML Solution 07/19/2017 Prempro 1 by mouth every Unknown - 0.3-1.5mg Tablets day Unknown Klonopin 1-2 tabs daily, Unknown - 0.5mg Tablets as needed for 02/14/2018 anxiety Vital Signs Date Vital Result Comment 09/18/2018 11:40am Height 65 inches 5'5" Weight 131.00 lb Heart Rate 64 /min BP Systolic Sitting 142 mmHg BP Diastolic Sitting 86 mmHg Respiratory Rate 16 /min BMI (Body Mass Index) 21.8 kg/m2 08/27/2018 8:56am Height 65 inches 5'5" Weight 132.00 lb Heart Rate 62 /min BP Systolic 102 mmHg BP Diastolic 66 mmHg BMI (Body Mass Index) 22.0 kg/m2 07/10/2018 11:38am Height 65 inches 5'5" Weight 130.00 lb Heart Rate 68 /min BP Systolic 118 mmHg BP Diastolic 80 mmHg BMI (Body Mass Index) 21.6 kg/m2 07/03/2018 10:12am Height 65 inches 5'5" Weight 130.00 lb Heart Rate 72 /min BP Systolic 102 mmHg BP Diastolic 78 mmHg BMI (Body Mass Index) 21.6 kg/m2 02/15/2018 1:54pm Height 65 inches 5'5" Weight 130.00 lb Heart Rate 70 /min BP Systolic Sitting 110 mmHg BP Diastolic Sitting 70 mmHg Respiratory Rate 16 /min BMI (Body Mass Index) 21.6 kg/m2 12/10/2017 1:29pm Height 65 inches 5'5" Weight 139.50 lb Heart Rate 60 /min BP Systolic Sitting 110 mmHg reg adult cuff left arm BP Diastolic Sitting 86 mmHg reg adult cuff left arm O2 % BldC Oximetry 91 % with gel nails, at rest on room air BMI (Body Mass Index) 23.2 kg/m2 11/30/2017 2:02pm Height 65 inches 5'5" Weight 142.12 lb Heart Rate 68 /min BP Systolic 120 mmHg BP Diastolic 82 mmHg BMI (Body Mass Index) 23.6 kg/m2 07/20/2017 1:40pm Height 65 inches 5'5" Weight 143.50 lb Heart Rate 66 /min BP Systolic Sitting 112 mmHg BP Diastolic Sitting 72 mmHg Respiratory Rate 16 /min BMI (Body Mass Index) 23.9 kg/m2 02/14/2017 1:30pm Height 65 inches 5'5" Weight 125.00 lb Heart Rate 64 /min BP Systolic Sitting 110 mmHg BP Diastolic Sitting 78 mmHg Respiratory Rate 16 /min BMI (Body Mass Index) 20.8 kg/m2 10/18/2016 8:42am Height 65 inches 5'5" Weight 139.00 lb Heart Rate 72 /min BP Systolic Sitting 118 mmHg BP Diastolic Sitting 82 mmHg Respiratory Rate 14 /min BMI (Body Mass Index) 23.1 kg/m2 09/05/2016 1:36pm Height 65 inches 5'5" Heart Rate 79 /min BP Systolic Sitting 110 mmHg BP Diastolic Sitting 64 mmHg Respiratory Rate 14 /min Pain Level 0 O2 % BldC Oximetry 96 % 06/28/2016 12:00pm Weight 122.00 lb Heart Rate 80 /min BP Systolic Sitting 118 mmHg BP Diastolic Sitting 78 mmHg Respiratory Rate 17 /min 03/07/2016 11:05am Height 65 inches 5'5" Heart Rate 69 /min BP Systolic Sitting 114 mmHg BP Diastolic Sitting 78 mmHg Respiratory Rate 14 /min O2 % BldC Oximetry 90 % 12/22/2015 3:51pm Height 65 inches 5'5" Weight 155.00 lb Heart Rate 76 /min BP Systolic Sitting 110 mmHg BP Diastolic Sitting 84 mmHg Respiratory Rate 14 /min BMI (Body Mass Index) 25.8 kg/m2 11/23/2015 11:52am Height 65 inches 5'5" Weight 155.00 lb Heart Rate 60 /min BP Systolic 128 mmHg BP Diastolic 86 mmHg Respiratory Rate 14 /min O2 % BldC Oximetry 89 % BMI (Body Mass Index) 25.8 kg/m2 10/14/2015 4:06pm Height 65 inches 5'5" Weight 155.00 lb Heart Rate 72 /min BP Systolic Sitting 122 mmHg BP Diastolic Sitting 84 mmHg Respiratory Rate 14 /min BMI (Body Mass Index) 25.8 kg/m2 09/13/2015 12:07pm Height 65 inches 5'5" Weight 169.00 lb Heart Rate 76 /min BP Systolic Sitting 126 mmHg BP Diastolic Sitting 84 mmHg Respiratory Rate 14 /min BMI (Body Mass Index) 28.1 kg/m2 08/24/2015 8:46am Height 65 inches 5'5" Heart Rate 68 /min BP Systolic 120 mmHg BP Diastolic 74 mmHg Respiratory Rate 14 /min O2 % BldC Oximetry 97 % 07/16/2015 9:09am Height 65 inches 5'5" Heart Rate 60 /min BP Systolic Sitting 120 mmHg BP Diastolic Sitting 82 mmHg Respiratory Rate 16 /min O2 % BldC Oximetry 93 % 07/06/2015 8:38am Heart Rate 60 /min BP Systolic Sitting 130 mmHg BP Diastolic Sitting 78 mmHg Respiratory Rate 18 /min O2 % BldC Oximetry 96 % 03/22/2015 2:32pm Heart Rate 80 /min BP Systolic Sitting 126 mmHg BP Diastolic Sitting 80 mmHg 03/09/2015 1:44pm Weight 170.00 lb Heart Rate 76 /min BP Systolic Sitting 120 mmHg BP Diastolic Sitting 78 mmHg 03/02/2015 1:14pm Heart Rate 64 /min BP Systolic Sitting 132 mmHg BP Diastolic Sitting 90 mmHg 02/26/2015 10:37am Height 65 inches 5'5" Heart Rate 88 /min BP Systolic Sitting 142 mmHg BP Diastolic Sitting 86 mmHg Respiratory Rate 20 /min 01/27/2015 9:30am Height 65 inches 5'5" Heart Rate 59 /min BP Systolic 124 mmHg BP Diastolic 16 mmHg Respiratory Rate 14 /min O2 % BldC Oximetry 96 % Neck Circumference in inches 16 12/29/2014 11:15am Height 65 inches 5'5" Weight 160.00 lb refused to get weight Heart Rate 80 /min BP Systolic 110 mmHg BP Diastolic 84 mmHg Respiratory Rate 14 /min Body Temperature 98.6 F O2 % BldC Oximetry 94 % BMI (Body Mass Index) 26.6 kg/m2 Neck Circumference in inches 14.5 11/23/2014 2:32pm Height 65 inches 5'5" Weight 160.00 lb Heart Rate 68 /min BP Systolic Sitting 108 mmHg BP Diastolic Sitting 84 mmHg Respiratory Rate 14 /min BMI (Body Mass Index) 26.6 kg/m2 07/22/2014 2:26pm Height 65 inches 5'5" Weight 172.00 lb Heart Rate 68 /min BP Systolic Sitting 122 mmHg BP Diastolic Sitting 68 mmHg Respiratory Rate 16 /min BMI (Body Mass Index) 28.6 kg/m2 02/11/2014 12:14pm Height 65 inches 5'5" Weight 160.00 lb Heart Rate 60 /min BP Systolic Sitting 130 mmHg BP Diastolic Sitting 82 mmHg Respiratory Rate 12 /min BMI (Body Mass Index) 26.6 kg/m2 12/11/2013 2:13pm Height 65 inches 5'5" Weight 160.00 lb Heart Rate 78 /min BP Systolic Sitting 124 mmHg BP Diastolic Sitting 80 mmHg BMI (Body Mass Index) 26.6 kg/m2 10/27/2013 10:08am Height 65 inches 5'5" Weight 166.38 lb Heart Rate 66 /min BP Systolic Sitting 120 mmHg BP Diastolic Sitting 70 mmHg Respiratory Rate 16 /min BMI (Body Mass Index) 27.7 kg/m2 08/06/2013 1:16pm Height 65 inches 5'5" Weight 170.00 lb Heart Rate 67 /min BP Systolic Sitting 140 mmHg BP Diastolic Sitting 80 mmHg Respiratory Rate 16 /min BMI (Body Mass Index) 28.3 kg/m2 02/19/2013 11:33am Heart Rate 58 /min BP Systolic Sitting 126 mmHg BP Diastolic Sitting 84 mmHg Respiratory Rate 18 /min 12/30/2012 1:49pm Heart Rate 56 /min BP Systolic Sitting 118 mmHg BP Diastolic Sitting 76 mmHg Respiratory Rate 12 /min 11/04/2012 11:14am Heart Rate 66 /min BP Systolic Sitting 108 mmHg BP Diastolic Sitting 70 mmHg Respiratory Rate 18 /min 03/18/2012 2:23pm Heart Rate 60 /min BP Systolic 140 mmHg BP Diastolic 80 mmHg Respiratory Rate 16 /min Results Test Date Facility Test Result H/L Range Note Pthi 08/29/2018 [facility] Calcium (PTH 11.2 mg/dL High 8.6- 10.[address] Intact) [place] [address] [phone] PTH Intact 106.2 pg/mL High 12-88 Laboratory test 08/29/2018 [facility] Phosphorus 2.9 mg/dL N 2.5-5.[address] [place] [address] [phone] Magnesium 2.1 mg/dL N 1.9-2.7 Vitamin D Total 25(Oh) 25.1 ng/mL N 20-50 1 1,25 Dihydroxy 08/29/2018 [facility] Calcitriol 34 pg/mL 18- 78 2 Vitamin D [address] [place] [address] [phone] Creatinine 24HR 08/29/2018 [facility] Urine Collection 24 hr Urine [address] [place] [address] [phone] Urine Total Volume 1150 mL Urine Creatinine Concentration 47.57 mg/dL Urine Creatinine/24 Hour 547.05 mg/24Hr Low 600-1800 Calcium,24 08/29/2018 [facility] Urine Calcium 81 mg/24h < 200 3 Hour,Urine [address] [place] [address] [phone] Urine Collection Duration 24 h Urine Volume 1150 mL Urine Calcium Conc 7 mg/dL 4 Basic Metabolic Panel 08/29/2018 [facility] Sodium 140 mmol/L N 135-[address] [place] [address] [phone] Potassium 4.3 mmol/L N 3.5-5.0 Chloride 106 mmol/L N 101-111 Co2 Carbon Dioxide 29 mmol/L N 22-32 Anion Gap 5 mmol/L N 2-11 Glucose 127 mg/dL High 70-100 Blood Urea Nitrogen 12 mg/dL N 6-24 Creatinine 0.77 mg/dL N 0.51-0.95 BUN/Creatinine Ratio 15.6 N 8-20 Calcium 11.3 mg/dL High 8.6-10.3 Egfr Non- 73.9 >60 Egfr 89.4 >60 5 Laboratory test finding 08/29/2018 [facility] Albumin 4.6 g/dL N 3.2-5.2 [address] [place] [address] [phone] TSH (Thyroid Stim Horm) 2.28 mcIU/mL N 0.34-5.60 Free T4 (Free Thyroxine) 0.81 ng/dL N 0.61-1.12 Laboratory test finding 07/19/2018 [facility] Ammonia 44 mcmol/ L N 16-53 [facility] [place] [address] [phone] [place] 0.70 mmol/L N 0.6-1.2 CBC Auto Diff 07/19/2018 [facility] White Blood 7.5 10^3/uL N 3.5-10.[address] [place] [address] [phone] Red Blood Count 4.59 10^6/uL N 3.70-4.87 Hemoglobin 14.2 g/dL N 12.0-16.0 Hematocrit 43 % High 33-41 Mean Corpuscular Volume 94 fL N 80-97 Mean Corpuscular Hemoglobin 31 pg N 27-31 Mean Corpuscular HGB Conc 33 g/dL N 31-36 Red Cell Distribution Width 15 % N 10.5-15 Platelet Count 259 10^3/uL N 150-450 Mean Platelet Volume 9.9 fL N 7.4-10.4 Abs Neutrophils 5.3 10^3/uL N 1.5-7.7 Abs Lymphocytes 1.5 10^3/uL N 1.0-4.8 Abs Monocytes 0.4 10^3/uL N 0-0.8 Abs Eosinophils 0.3 10^3/uL N 0-0.6 Abs Basophils 0 10^3/uL N 0-0.2 Abs Nucleated RBC 0 10^3/uL Granulocyte % 70.8 % Lymphocyte % 19.6 % Monocyte % 5.1 % Eosinophil % 4.0 % Basophil % 0.5 % Nucleated Red Blood Cells % 0 Laboratory test 07/19/2018 [facility] Caspr2-IgG Negative Negative [address] Cba,[place] [address] [phone] Lgi1-IgG Cba, S Negative Negative 7 Paraneoplastic 07/19/2018 [facility] Paraneoplastic Ab See Comment [address] [place] [address] [phone] Anti-Neuronal Nuclear Ab Type1 Negative titer <1:240 Reflex Added None. 9 Anti-Neuronal Nuclear Ab Type2 Negative titer <1:240 10 Anti-Neuronal Nuclear Ab Type3 Negative titer <1:240 11 Anti-Glial/Neuronal Nuc Ab-1 A Negative titer <1:240 12 Purkinje Cell Cytoplasm Type 1 Negative titer <1:240 13 Purkinje Cell Cytoplasm Type 2 Negative titer <1:240 14 Purkinje Cell Cytoplasm Typ Tr Negative titer <1:240 15 Amphiphysin Antibody Negative titer <1:240 16 CRMP-5 IgG Antibody Negative titer <1:240 17 Anti-Striated Muscle Antibody Negative titer <1:120 18 Calcium Channel Binding Ab P/Q 0.00 nmol/L <=0.02 19 N Type Calcium Channel Binding 0.00 nmol/L <=0.03 20 ACh Receptor Muscle Binding Ab 0.00 nmol/L <=0.02 21 AChR Ganglionic Neuronal Ab 0.00 nmol/L <=0.02 22 Voltage-Gated Potassium Chann 0.01 nmol/L <=0.02 23 Paraneoplastic 07/19/2018 [facility] Paraneoplastic Ab See Comment [address] [place] [address] [phone] Anti-Neuronal Nuclear Ab Type1 Negative titer <1:240 Reflex Added None. 25 Anti-Neuronal Nuclear Ab Type2 Negative titer <1:240 26 Anti-Neuronal Nuclear Ab Type3 Negative titer <1:240 27 Anti-Glial/Neuronal Nuc Ab-1 A Negative titer <1:240 28 Purkinje Cell Cytoplasm Type 1 Negative titer <1:240 29 Purkinje Cell Cytoplasm Type 2 Negative titer <1:240 30 Purkinje Cell Cytoplasm Typ Tr Negative titer <1:240 31 Amphiphysin Antibody Negative titer <1:240 32 CRMP-5 IgG Antibody Negative titer <1:240 33 Anti-Striated Muscle Antibody Negative titer <1:120 34 Calcium Channel Binding Ab P/Q 0.00 nmol/L <=0.02 35 N Type Calcium Channel Binding 0.00 nmol/L <=0.03 36 ACh Receptor Muscle Binding Ab 0.00 nmol/L <=0.02 37 AChR Ganglionic Neuronal Ab 0.00 nmol/L <=0.02 38 Voltage-Gated Potassium Chann 0.01 nmol/L <=0.02 39 Laboratory test 07/19/2018 [facility] TSH (Thyroid 1.31 mcIU/mL N 0.34-5.[address] Stim Horm) [place] [address] [phone] Folic Acid (Folate) 7.93 ng/mL >3.99 Vitamin B12 > 1450 pg/mL High 180-914 40 Caspr2-IgG Cba,S Negative Negative 41 Lgi1-IgG Cba, S Negative Negative 42 Comp Metabolic Panel 07/19/2018 [facility] Sodium 137 mmol/L N 135-[address] [place] [address] [phone] Potassium 4.3 mmol/L N 3.5-5.0 Chloride 104 mmol/L N 101-111 Co2 Carbon Dioxide 27 mmol/L N 22-32 Anion Gap 6 mmol/L N 2-11 Glucose 124 mg/dL High 70-100 Blood Urea Nitrogen 11 mg/dL N 6-24 Creatinine 0.81 mg/dL N 0.51-0.95 BUN/Creatinine Ratio 13.6 N 8-20 Calcium 10.9 mg/dL High 8.6-10.3 Total Protein 6.2 g/dL Low 6.4-8.9 Albumin 4.3 g/dL N 3.2-5.2 Globulin 1.9 g/dL Low 2-4 Albumin/Globulin Ratio 2.3 N 1-3 Total Bilirubin 0.60 mg/dL N 0.2-1.0 Alkaline Phosphatase 129 U/L High 34-104 Alt < 3 U/L Low 7-52 Ast 8 U/L Low 13-39 Egfr Non- 69.7 >60 Egfr 84.3 >60 43 Laboratory test 07/19/2018 [facility] [place] 0.70 N 0.6-1.[address] mmol/[place] [address] [phone] Laboratory test 07/19/2018 [facility] Methylmalonic 0.14 <= 0.40 [address] Acid Mma nmol/[place] [address] [phone] Protein 07/19/2018 [facility] Total 6.4 g/dL 6.3 - 7.[address] Protein(Pep) [place] [address] [phone] Albumin 3.6 g/dL 3.4-4.7 Alpha-1 Globulin 0.3 g/dL 0.1-0.3 Alpha-2 Globulin 1.0 g/dL 0.6-1.0 Beta Globulin 0.9 g/dL 0.7-1.2 Gamma Globulin 0.7 g/dL 0.6-1.6 Albumin/Globulin Ratio 1.28 Impression See Comment 45 Alkaline Phos 07/19/2018 [facility] Alkaline 138 U/L Abnormal 35 - Isoenzymes [address] Phosphatase [address] [place] [address] [phone] Alp Liver 1% 23.4 % Abnormal 27.8-76.3 Alp Liver 1 32.3 IU/L 16.2-70.2 Alp Liver 2% 7.7 % 0.0-8.0 Alp Liver 2 10.6 IU/L Abnormal 0.0-5.8 Alp Bone % 67.3 % 19.1-67.7 Alp Bone 92.9 IU/L Abnormal 12.1-42.7 Alp Intestine % 1.6 % 0.0-20.6 Alp Intestine 2.2 IU/L 0.0-11.0 Alp Placental NotPresent 46 Laboratory test 07/19/2018 [facility] Vitamin D 32.0 ng/mL N 20-[address] Total 25(Oh) [place] [address] [phone] Homocysteine 21 mcmol/L Abnormal 47 Pthi 07/19/2018 [facility] Calcium (PTH Intact) 10.8 mg/dL High 8.6-10.[address] [place], [place] [id number] [phone] PTH Intact 111.8 pg/mL High 12-88 Laboratory test 07/19/2018 [facility] Calcium 1.42 High 1.16- 1.[address] Ionized mmol/[place] [address] [phone] Laboratory test 07/10/2018 [facility] Vitamin D 34.1 N 20-[address] Total ng/[place] [address] 25(Oh) [phone] Protein 07/10/2018 [facility] Total 6.7 g/dL 6.3 - 7.[address] Protein([place] [address] ) [phone] Albumin 3.6 g/dL 3.4-4.7 Alpha-1 Globulin 0.3 g/dL 0.1-0.3 Alpha-2 Globulin 1.0 g/dL 0.6-1.0 Beta Globulin 0.9 g/dL 0.7-1.2 Gamma Globulin 0.8 g/dL 0.6-1.6 Albumin/Globulin Ratio 1.19 Impression See Comment 48 Pthi 07/10/2018 [facility] Calcium (PTH Intact) 11.0 mg/dL High 8.6-10.[address] [place] [address] [phone] PTH Intact 12.4 pmol/L High 1.3-9.3 Laboratory 07/10/2018 [facility] Calcium 1.44 High 1.16-1.32 test finding [address] Ionized mmol/L [place], [place] [id number] [phone] Alkaline Phos 07/10/2018 [facility] Alkaline 157 U/L Abnormal 35 - [address] [place] [address] [phone] Alp Liver 1% 33.1 % 27.8-76.3 Alp Liver 1 52.0 IU/L 16.2-70.2 Alp Liver 2% 5.6 % 0.0-8.0 Alp Liver 2 8.8 IU/L Abnormal 0.0-5.8 Alp Bone % 57.5 % 19.1-67.7 Alp Bone 90.3 IU/L Abnormal 12.1-42.7 Alp Intestine % 3.8 % 0.0-20.6 Alp Intestine 6.0 IU/L 0.0-11.0 Alp Placental NotPresent 49 Laboratory test 07/10/2018 [facility] Homocysteine 31 mcmol/L Abnormal [address] [place] [address] [phone] Methylmalonic Acid Mma 0.25 nmol/mL <=0.40 51 CBC Auto Diff 07/03/2018 [facility] White Blood 9.7 10^3/uL N 3.5-10.[address] [place] [address] [phone] Red Blood Count 4.71 10^6/uL N 4.00-5.40 Hemoglobin 14.4 g/dL N 12.0-16.0 Hematocrit 45 % N 35-47 Mean Corpuscular Volume 96 fL N 80-97 Mean Corpuscular Hemoglobin 31 pg N 27-31 Mean Corpuscular HGB Conc 32 g/dL N 31-36 Red Cell Distribution Width 15 % N 10.5-15 Platelet Count 280 10^3/uL N 150-450 Mean Platelet Volume 10.3 fL N 7.4-10.4 Abs Neutrophils 7.4 10^3/uL N 1.5-7.7 Abs Lymphocytes 1.6 10^3/uL N 1.0-4.8 Abs Monocytes 0.5 10^3/uL N 0-0.8 Abs Eosinophils 0.2 10^3/uL N 0-0.6 Abs Basophils 0 10^3/uL N 0-0.2 Abs Nucleated RBC 0 10^3/uL Granulocyte % 75.6 % Lymphocyte % 16.8 % Monocyte % 4.7 % Eosinophil % 2.4 % Basophil % 0.5 % Nucleated Red Blood Cells % 0.1 Comp Metabolic Panel 07/03/2018 [facility] Sodium 138 mmol/L N 135-[address] [place] [address] [phone] Potassium 4.4 mmol/L N 3.5-5.0 Chloride 105 mmol/L N 101-111 Co2 Carbon Dioxide 27 mmol/L N 22-32 Anion Gap 6 mmol/L N 2-11 Glucose 100 mg/dL N 70-100 Blood Urea Nitrogen 12 mg/dL N 6-24 Creatinine 0.81 mg/dL N 0.51-0.95 BUN/Creatinine Ratio 14.8 N 8-20 Calcium 11.1 mg/dL High 8.6-10.3 Total Protein 6.4 g/dL N 6.4-8.9 Albumin 4.5 g/dL N 3.2-5.2 Globulin 1.9 g/dL Low 2-4 Albumin/Globulin Ratio 2.4 N 1-3 Total Bilirubin 0.50 mg/dL N 0.2-1.0 Alkaline Phosphatase 150 U/L High 34-104 Alt < 3 U/L Low 7-52 Ast 6 U/L Low 13-39 Egfr Non- 69.7 >60 Egfr 84.3 >60 52 Laboratory test finding 07/03/2018 [facility] Ammonia 53 mcmol/ L N 16-[address] [place] [address] [phone] TSH (Thyroid Stim Horm) 1.17 mcIU/mL N 0.34-5.60 Vitamin B12 And 07/03/2018 [facility] Vitamin B12 237 pg/mL N 180-914 53 Folate Serum [address] [place] [address] [phone] Folic Acid (Folate) 7.47 ng/mL >3.99 CBC Auto Diff 02/02/2016 [facility] White Blood 10.0 10^3/uL N 3.5-10.[address] [place] [address] [phone] Red Blood Count 4.55 10^6/uL N 4.0-5.4 Hemoglobin 14.2 g/dL N 12.0-16.0 Hematocrit 43 % N 35-47 Mean Corpuscular Volume 94 fL N 80-97 Mean Corpuscular Hemoglobin 31 pg N 27-31 Mean Corpuscular HGB Conc 33 g/dL N 31-36 Red Cell Distribution Width 14 % N 10.5-15 Platelet Count 314 10^3/uL N 150-450 Mean Platelet Volume 10 um3 N 7.4-10.4 Abs Neutrophils 6.9 10^3/uL N 1.5-7.7 Abs Lymphocytes 2.1 10^3/uL N 1.0-4.8 Abs Monocytes 0.8 10^3/uL N 0-0.8 Abs Eosinophils 0.2 10^3/uL N 0-0.6 Abs Basophils 0 10^3/uL N 0-0.2 Abs Nucleated RBC 0.01 10^3/uL N Granulocyte % 69.1 % N 38-83 Lymphocyte % 20.5 % Low 25-47 Monocyte % 7.7 % N 1-9 Eosinophil % 2.3 % N 0-6 Basophil % 0.4 % N 0-2 Nucleated Red Blood Cells % 0.1 N Comp Metabolic Panel 02/02/2016 [facility] Sodium 135 mmol/L N 133-145 [address] [place] [address] [phone] Potassium 4.6 mmol/L N 3.5-5.0 Chloride 100 mmol/L Low 101-111 Co2 Carbon Dioxide 29 mmol/L N 22-32 Anion Gap 6 mmol/L N 2-11 Glucose 109 mg/dL High 70-100 Blood Urea Nitrogen 8 mg/dL N 6-24 Creatinine 0.74 mg/dL N 0.51-0.95 BUN/Creatinine Ratio 10.8 N 8-20 Calcium 11.7 mg/dL High 8.6-10.3 Total Protein 6.6 g/dL N 6.4-8.9 Albumin 4.3 g/dL N 3.2-5.2 Globulin 2.3 g/dL N 2-4 Albumin/Globulin Ratio 1.9 N 1-3 Total Bilirubin 0.50 mg/dL N 0.2-1.0 Alkaline Phosphatase 127 U/L High 34-104 Alt < 3 U/L Low 7-52 Ast 9 U/L Low 13-39 Egfr Non- 77.8 N >60 Egfr 100.1 N >60 54 Laboratory test 02/02/2016 [facility] C Reactive 8.67 mg/L High < 5.00 [address] [place] [address] [phone] TSH (Thyroid Stim Horm) 1.88 mcIU/mL N 0.34-5.60 Laboratory test finding 10/15/2015 [facility] Ammonia 33 ?mol/L N 16-[address] [place] [address] [phone] [place] 0.72 mmol/L N 0.6-1.2 Lyme Disease Serology Negative N Negative 57 Laboratory test 09/15/2015 [facility] Lactic Acid 1.2 mmol/L N 0.5-2.0 [address] [place] [address] [phone] CBC Auto Diff 09/15/2015 [facility] White Blood 10.7 10^3/uL N 3.5-10.[address] [place] [address] [phone] Red Blood Count 4.31 10^6/uL N 4.0-5.4 Hemoglobin 13.6 g/dL N 12.0-16.0 Hematocrit 42 % N 35-47 Mean Corpuscular Volume 97 fL N 80-97 Mean Corpuscular Hemoglobin 32 pg High 27-31 Mean Corpuscular HGB Conc 33 g/dL N 31-36 Red Cell Distribution Width 13 % N 10.5-15 Platelet Count 252 10^3/uL N 150-450 Mean Platelet Volume 10 um3 N 7.4-10.4 Abs Neutrophils 7.8 10^3/uL High 1.5-7.7 Abs Lymphocytes 1.8 10^3/uL N 1.0-4.8 Abs Monocytes 0.9 10^3/uL High 0-0.8 Abs Eosinophils 0.2 10^3/uL N 0-0.6 Abs Basophils 0 10^3/uL N 0-0.2 Abs Nucleated RBC 0.01 10^3/uL N Granulocyte % 72.9 % N 38-83 Lymphocyte % 16.8 % Low 25-47 Monocyte % 8.1 % N 1-9 Eosinophil % 1.8 % N 0-6 Basophil % 0.4 % N 0-2 Nucleated Red Blood Cells % 0.1 N Comp Metabolic Panel 09/15/2015 [facility] Sodium 135 mmol/L N 133-[address] [place] [address] [phone] Potassium 3.8 mmol/L N 3.5-5.0 Chloride 101 mmol/L N 101-111 Co2 Carbon Dioxide 29 mmol/L N 22-32 Anion Gap 5 mmol/L N 2-11 Glucose 115 mg/dL High 70-100 Blood Urea Nitrogen 11 mg/dL N 6-24 Creatinine 0.87 mg/dL N 0.51-0.95 BUN/Creatinine Ratio 12.6 N 8-20 Calcium 10.5 mg/dL High 8.6-10.3 Total Protein 6.3 g/dL Low 6.4-8.9 Albumin 4.2 g/dL N 3.2-5.2 Globulin 2.1 g/dL N 2-4 Albumin/Globulin Ratio 2.0 N 1-3 Total Bilirubin 0.60 mg/dL N 0.2-1.0 Alkaline Phosphatase 86 U/L N 34-104 Alt < 3 U/L Low 7-52 Ast 10 U/L Low 13-39 Egfr Non- 64.7 N >60 Egfr 83.3 N >60 59 Laboratory test 09/15/2015 [facility] Magnesium 1.9 mg/dL N 1.9-2.[address] [place] [address] [phone] Lipase 11 U/L N 11.0-82.0 C Reactive Protein 2.59 mg/L N < 5.00 60 Urinalysis Profile 09/15/2015 [facility] Urine Color Yellow N [address] [place] [address] [phone] Urine Appearance Clear N Urine Specific [place] 1.034 High 1.010-1.030 Urine pH 7.0 N 5-9 Urine Urobilinogen Negative N Negative Urine Ketones Trace Abnormal Negative Urine Protein Negative N Negative Urine Leukocytes 1+ Abnormal Negative Urine Blood Negative N Negative Urine Nitrite Negative N Negative Urine Bilirubin Negative N Negative Urine Glucose Negative N Negative Urine White Blood Cell 1+(6-10/hpf) Abnormal Absent Urine Red Blood Cell Trace(0-2/hpf) N Absent Urine Bacteria Absent N Absent Urine Squamous Epithelial Cell Present Abnormal Absent Urine Culture And 09/15/2015 [facility] Urine Culture SEE RESULT [address] [place] [address] [phone] Urinalysis Profile 09/10/2015 [facility] Urine Color Yellow N [address] [place] [address] [phone] Urine Appearance Cloudy N Urine Specific [place] 1.014 N 1.010-1.030 Urine pH 7.0 N 5-9 Urine Urobilinogen Negative N Negative Urine Ketones Trace Abnormal Negative Urine Protein Negative N Negative Urine Leukocytes Trace Abnormal Negative Urine Blood Negative N Negative Urine Nitrite Negative N Negative Urine Bilirubin Negative N Negative Urine Glucose Negative N Negative Urine White Blood Cell 1+(6-10/hpf) Abnormal Absent Urine Red Blood Cell 1+(3-5/hpf) Abnormal Absent Urine Bacteria Absent N Absent Urine Squamous Epithelial Cell Present Abnormal Absent Urine Culture And 09/10/2015 [facility] Urine Culture SEE RESULT [address] [place] [address] [phone] CBC Auto Diff 09/09/2015 [facility] White Blood 7.9 10^3/uL N 3.5-[address] Count 0.8 [place] [address] [phone] Red Blood Count 4.19 10^6/uL N 4.0-5.4 Hemoglobin 13.2 g/dL N 12.0-16.0 Hematocrit 40 % N 35-47 Mean Corpuscular Volume 96 fL N 80-97 Mean Corpuscular Hemoglobin 32 pg High 27-31 Mean Corpuscular HGB Conc 33 g/dL N 31-36 Red Cell Distribution Width 13 % N 10.5-15 Platelet Count 259 10^3/uL N 150-450 Mean Platelet Volume 10 um3 N 7.4-10.4 Abs Neutrophils 5.6 10^3/uL N 1.5-7.7 Abs Lymphocytes 1.6 10^3/uL N 1.0-4.8 Abs Monocytes 0.5 10^3/uL N 0-0.8 Abs Eosinophils 0.2 10^3/uL N 0-0.6 Abs Basophils 0 10^3/uL N 0-0.2 Abs Nucleated RBC 0 10^3/uL N Granulocyte % 71.0 % N 38-83 Lymphocyte % 19.9 % Low 25-47 Monocyte % 6.2 % N 1-9 Eosinophil % 2.3 % N 0-6 Basophil % 0.6 % N 0-2 Nucleated Red Blood Cells % 0 N Comp Metabolic Panel 09/09/2015 [facility] Sodium 138 mmol/L N 133-[address] [place] [address] [phone] Potassium 4.5 mmol/L N 3.5-5.0 Chloride 104 mmol/L N 101-111 Co2 Carbon Dioxide 27 mmol/L N 22-32 Anion Gap 7 mmol/L N 2-11 Glucose 102 mg/dL High 70-100 Blood Urea Nitrogen 13 mg/dL N 6-24 Creatinine 0.79 mg/dL N 0.51-0.95 BUN/Creatinine Ratio 16.5 N 8-20 Calcium 10.4 mg/dL High 8.6-10.3 Total Protein 6.2 g/dL Low 6.4-8.9 Albumin 4.3 g/dL N 3.2-5.2 Globulin 1.9 g/dL Low 2-4 Albumin/Globulin Ratio 2.3 N 1-3 Total Bilirubin 0.50 mg/dL N 0.2-1.0 Alkaline Phosphatase 88 U/L N 34-104 Alt < 3 U/L Low 7-52 Ast 12 U/L Low 13-39 Egfr Non- 72.4 N >60 Egfr 93.1 N >60 63 Laboratory test 09/09/2015 [facility] TSH (Thyroid 0.69 ?IU/mL N 0.34-5.[address] Stim [place]) [place] [address] [phone] Vitamin B12 And 09/09/2015 [facility] Vitamin B12 284 pg/mL N 180-914 64 Folate Serum [address] [place] [address] [phone] Folic Acid (Folate) 9.84 ng/mL N >3.99 Laboratory test 09/09/2015 [facility] Erythrocyte Sed 9 mm/Hr N 0-[address] [place] [address] [phone] Xray 12/11/2013 [employer] @ [facility] 1 Or 2 <pending> [address] Views [place], [place] [id number] [phone] Hip Complete LT <pending> CBC Auto Diff 03/11/2013 [facility] White Blood 8.8 10^3/uL 4.8-10.[address] [place] [address] [phone] Red Blood Count 4.35 10^6/uL 4.0-5.4 Hemoglobin 14.0 g/dL 12.0-16.0 Hematocrit 41 % 35-47 Mean Corpuscular Volume 95 fL 80-97 Mean Corpuscular Hemoglobin 32 pg High 27-31 Mean Corpuscular HGB Conc 34 g/dL 31-36 Red Cell Distribution Width 13 % 10.5-15 Platelet Count 246 10^3/uL 150-450 Mean Platelet Volume 10 um3 7.4-10.4 Abs Neutrophils 5.3 10^3/uL 1.5-7.7 Abs Lymphocytes 2.7 10^3/uL 1.0-4.8 Abs Monocytes 0.6 10^3/uL 0-0.8 Abs Eosinophils 0.2 10^3/uL 0-0.6 Abs Basophils 0.1 10^3/uL 0-0.2 Abs Nucleated RBC 0 10^3/uL Granulocyte % 59.7 % 38-83 Lymphocyte % 31.1 % 25-47 Monocyte % 6.3 % 1-9 Eosinophil % 2.3 % 0-6 Basophil % 0.6 % 0-2 Nucleated Red Blood Cells % 0.1 Laboratory test 03/11/2013 [facility] [place] 0.7 mmol/L 0.5- 1.5 finding [address] [place] [address] [phone] Electrolytes 03/11/2013 [facility] Sodium 137 mmol/L 133-145 [address] [place] [address] [phone] Potassium 4.5 mmol/L 3.5-5.0 Chloride 104 mmol/L 101-111 Co2 Carbon Dioxide 26.0 mmol/L 22-32 Anion Gap 7.0 mmol/L 2-11 Lipid Profile 03/11/2013 [facility] Triglycerides 271 mg/dL High 40-200 (Trig/Chol/HDL) [address] [place] [address] [phone] Cholesterol 253 mg/dL High Less than 200 HDL Cholesterol 70 mg/dL High 40-60 65 Cholesterol/HDL Ratio 3.6 Average 1-4.44 LDL Cholesterol 128.8 High Less Than 100 66 Laboratory test 03/11/2013 [facility] Free T4 0.80 ng/mL 0.61 -1.24 finding [address] [place] [address] [phone] TSH (Thyroid Stimulating Horm) 1.45 miu/mL 0.34-5.60 Creatinine 03/11/2013 [facility] Creatinine 0.70 mg/dL 0.50- 1.40 [address] [place] [address] [phone] Egfr Non- 83.7 >60 Egfr 107.7 >60 67 Laboratory test 03/11/2013 [facility] Blood Urea 12 mg/dL 6- 24 finding [address] [place] [address] [phone] Laboratory test 02/28/2013 [facility] Free T4 0.77 ng/mL 0.61 -1.24 finding [address] [place] [address] [phone] TSH (Thyroid Stimulating Horm) 0.89 miu/mL 0.34-5.60 Creatinine 02/28/2013 [facility] Creatinine 0.60 mg/dL 0.50- 1.[address] [place] [address] [phone] Egfr Non- 100.0 >60 Egfr 128.6 >60 68 Laboratory test 02/28/2013 [facility] Blood Urea 9 mg/dL 6- 24 finding [address] [place] [address] [phone] Electrolytes 02/28/2013 [facility] Sodium 137 mmol/L 133-[address] [place] [address] [phone] Potassium 4.4 mmol/L 3.5-5.0 Chloride 103 mmol/L 101-111 Co2 Carbon Dioxide 29.0 mmol/L 22-32 Anion Gap 5.0 mmol/L 2-11 1 Total 25-Hydroxyvitamin D2 and D3 (25-OH-VitD) <10 ng/mL (severe deficiency) 10-19 ng/mL (mild to moderate deficiency) 20-50 ng/mL (optimum levels) 51-80 ng/mL (increased risk of hypercalciuria) >80 ng/mL (toxicity possible) 2 ADDITIONAL INFORMATION This test was developed and its performance characteristics determined by [facility] in a manner consistent with CLIA requirements. This test has not been cleared or approved by the U.S. Food and Drug Administration. Test Performed by: [facility] - [facility] [address] [place] [address] 3 ADDITIONAL INFORMATION This test has been modified from the tower erector's instructions. Its performance characteristics were determined by [facility] in a manner consistent with CLIA requirements. This test has not been cleared or approved by the U.S. Food and Drug Administration. 4 Test Performed by: [address] [address] 5 Because ethnic data is not always readily available, this report includes an eGFR for both -Americans and non- Americans. The National Kidney Disease Education Program (NKDEP) does not endorse the use of the MDRD equation for patients that are not between the ages of 18 and 70, are , have extremes of body size, muscle mass, or nutritional status, or are non- or non-. According to the National Kidney Foundation, irrespective of diagnosis, the stage of the disease is based on the level of kidney function: Stage Description GFR(mL/min/1.73 m(2)) 1 Kidney damage with normal or decreased GFR 90 2 Kidney damage with mild decrease in GFR 60-89 3 Moderate decrease in GFR 30-59 4 Severe decrease in GFR 15-29 5 Kidney failure <15 (or dialysis) 6 ADDITIONAL INFORMATION This test was developed and its performance characteristics determined by [facility] in a manner consistent with CLIA requirements. This test has not been cleared or approved by the U.S. Food and Drug Administration. Test Performed by: [facility] - [address] [address] 7 ADDITIONAL INFORMATION This test was developed and its performance characteristics determined by [facility] in a manner consistent with CLIA requirements. This test has not been cleared or approved by the U.S. Food and Drug Administration. Test Performed by: [address] [address] 8 Reflexed test(s) performed per testing algorithm. * No informative autoantibodies were detected in the Paraneoplastic Evaluation. However, a negative result does not exclude neurological autoimmunity with or without associated neoplasia. Sensitivity and specificity of antibody testing are enhanced by testing both serum and CSF. 9 ADDITIONAL INFORMATION This test was developed and its performance characteristics determined by [facility] in a manner consistent with CLIA requirements. This test has not been cleared or approved by the U.S. Food and Drug Administration. 10 ADDITIONAL INFORMATION This test was developed and its performance characteristics determined by [facility] in a manner consistent with CLIA requirements. This test has not been cleared or approved by the U.S. Food and Drug Administration. 11 ADDITIONAL INFORMATION This test was developed and its performance characteristics determined by [facility] in a manner consistent with CLIA requirements. This test has not been cleared or approved by the U.S. Food and Drug Administration. 12 ADDITIONAL INFORMATION This test was developed and its performance characteristics determined by [facility] in a manner consistent with CLIA requirements. This test has not been cleared or approved by the U.S. Food and Drug Administration. 13 ADDITIONAL INFORMATION This test was developed and its performance characteristics determined by [facility] in a manner consistent with CLIA requirements. This test has not been cleared or approved by the U.S. Food and Drug Administration. 14 ADDITIONAL INFORMATION This test was developed and its performance characteristics determined by [facility] in a manner consistent with CLIA requirements. This test has not been cleared or approved by the U.S. Food and Drug Administration. 15 ADDITIONAL INFORMATION This test was developed and its performance characteristics determined by [facility] in a manner consistent with CLIA requirements. This test has not been cleared or approved by the U.S. Food and Drug Administration. 16 ADDITIONAL INFORMATION This test was developed and its performance characteristics determined by [facility] in a manner consistent with CLIA requirements. This test has not been cleared or approved by the U.S. Food and Drug Administration. 17 ADDITIONAL INFORMATION This test was developed and its performance characteristics determined by [facility] in a manner consistent with CLIA requirements. This test has not been cleared or approved by the U.S. Food and Drug Administration. 18 ADDITIONAL INFORMATION This test was developed and its performance characteristics determined by [facility] in a manner consistent with CLIA requirements. This test has not been cleared or approved by the U.S. Food and Drug Administration. 19 ADDITIONAL INFORMATION This test was developed and its performance characteristics determined by [facility] in a manner consistent with CLIA requirements. This test has not been cleared or approved by the U.S. Food and Drug Administration. 20 ADDITIONAL INFORMATION This test was developed and its performance characteristics determined by [facility] in a manner consistent with CLIA requirements. This test has not been cleared or approved by the U.S. Food and Drug Administration. 21 ADDITIONAL INFORMATION This test was developed and its performance characteristics determined by [facility] in a manner consistent with CLIA requirements. This test has not been cleared or approved by the U.S. Food and Drug Administration. 22 ADDITIONAL INFORMATION This test was developed and its performance characteristics determined by [facility] in a manner consistent with CLIA requirements. This test has not been cleared or approved by the U.S. Food and Drug Administration. 23 ADDITIONAL INFORMATION This test was developed and its performance characteristics determined by [facility] in a manner consistent with CLIA requirements. This test has not been cleared or approved by the U.S. Food and Drug Administration. Test Performed by: [address] [address] 24 Reflexed test(s) performed per testing algorithm. * No informative autoantibodies were detected in the Paraneoplastic Evaluation. However, a negative result does not exclude neurological autoimmunity with or without associated neoplasia. Sensitivity and specificity of antibody testing are enhanced by testing both serum and CSF. 25 ADDITIONAL INFORMATION This test was developed and its performance characteristics determined by [facility] in a manner consistent with CLIA requirements. This test has not been cleared or approved by the U.S. Food and Drug Administration. 26 ADDITIONAL INFORMATION This test was developed and its performance characteristics determined by [facility] in a manner consistent with CLIA requirements. This test has not been cleared or approved by the U.S. Food and Drug Administration. 27 ADDITIONAL INFORMATION This test was developed and its performance characteristics determined by [facility] in a manner consistent with CLIA requirements. This test has not been cleared or approved by the U.S. Food and Drug Administration. 28 ADDITIONAL INFORMATION This test was developed and its performance characteristics determined by [facility] in a manner consistent with CLIA requirements. This test has not been cleared or approved by the U.S. Food and Drug Administration. 29 ADDITIONAL INFORMATION This test was developed and its performance characteristics determined by [facility] in a manner consistent with CLIA requirements. This test has not been cleared or approved by the U.S. Food and Drug Administration. 30 ADDITIONAL INFORMATION This test was developed and its performance characteristics determined by [facility] in a manner consistent with CLIA requirements. This test has not been cleared or approved by the U.S. Food and Drug Administration. 31 ADDITIONAL INFORMATION This test was developed and its performance characteristics determined by [facility] in a manner consistent with CLIA requirements. This test has not been cleared or approved by the U.S. Food and Drug Administration. 32 ADDITIONAL INFORMATION This test was developed and its performance characteristics determined by [facility] in a manner consistent with CLIA requirements. This test has not been cleared or approved by the U.S. Food and Drug Administration. 33 ADDITIONAL INFORMATION This test was developed and its performance characteristics determined by [facility] in a manner consistent with CLIA requirements. This test has not been cleared or approved by the U.S. Food and Drug Administration. 34 ADDITIONAL INFORMATION This test was developed and its performance characteristics determined by [facility] in a manner consistent with CLIA requirements. This test has not been cleared or approved by the U.S. Food and Drug Administration. 35 ADDITIONAL INFORMATION This test was developed and its performance characteristics determined by [facility] in a manner consistent with CLIA requirements. This test has not been cleared or approved by the U.S. Food and Drug Administration. 36 ADDITIONAL INFORMATION This test was developed and its performance characteristics determined by [facility] in a manner consistent with CLIA requirements. This test has not been cleared or approved by the U.S. Food and Drug Administration. 37 ADDITIONAL INFORMATION This test was developed and its performance characteristics determined by [facility] in a manner consistent with CLIA requirements. This test has not been cleared or approved by the U.S. Food and Drug Administration. 38 ADDITIONAL INFORMATION This test was developed and its performance characteristics determined by [facility] in a manner consistent with CLIA requirements. This test has not been cleared or approved by the U.S. Food and Drug Administration. 39 ADDITIONAL INFORMATION This test was developed and its performance characteristics determined by [facility] in a manner consistent with CLIA requirements. This test has not been cleared or approved by the U.S. Food and Drug Administration. Test Performed by: [facility] - [address] [address] 40 Normal Range 180 to 914 Indeterminate Range 145 to 180 Deficient Range <145 41 ADDITIONAL INFORMATION This test was developed and its performance characteristics determined by [facility] in a manner consistent with CLIA requirements. This test has not been cleared or approved by the U.S. Food and Drug Administration. Test Performed by: [facility] - [address] [address] 42 ADDITIONAL INFORMATION This test was developed and its performance characteristics determined by [facility] in a manner consistent with CLIA requirements. This test has not been cleared or approved by the U.S. Food and Drug Administration. Test Performed by: [facility] - [address] [address] 43 Because ethnic data is not always readily available, this report includes an eGFR for both -Americans and non- Americans. The National Kidney Disease Education Program (NKDEP) does not endorse the use of the MDRD equation for patients that are not between the ages of 18 and 70, are , have extremes of body size, muscle mass, or nutritional status, or are non- or non-. According to the National Kidney Foundation, irrespective of diagnosis, the stage of the disease is based on the level of kidney function: Stage Description GFR(mL/min/1.73 m(2)) 1 Kidney damage with normal or decreased GFR 90 2 Kidney damage with mild decrease in GFR 60-89 3 Moderate decrease in GFR 30-59 4 Severe decrease in GFR 15-29 5 Kidney failure <15 (or dialysis) 44 ADDITIONAL INFORMATION This test was developed and its performance characteristics determined by [facility] in a manner consistent with CLIA requirements. This test has not been cleared or approved by the U.S. Food and Drug Administration. Test Performed by: [facility] - [address] [address] 45 RESULT: No apparent monoclonal protein on serum electrophoresis. Test Performed by: [facility] - [address] [address] 46 REFERENCE VALUE Not present Test Performed by: [facility] - [address] [address] 47 The homocysteine concentration is elevated in this sample. Increased homocysteine has been associated with an increased risk of cardiovascular disease, cerebrovascular disease, peripheral arterial disease and thrombosis. Vitamin deficiencies (B6, B12 and folic acid) may also cause an increased homocysteine concentration. Inborn errors of methionine metabolism are a potential, but less likely, possibility for hyperhomocysteinemia. Consider plasma or serum methylmalonic acid analysis to rule out vitamin B12 deficiency. REFERENCE VALUE <=13 (Fasting) ADDITIONAL INFORMATION This test was developed and its performance characteristics determined by [facility] in a manner consistent with CLIA requirements. This test has not been cleared or approved by the U.S. Food and Drug Administration. Test Performed by: [facility] - [address] [address] 48 RESULT: No apparent monoclonal protein on serum electrophoresis. Test Performed by: [facility] - [address] [address] 49 REFERENCE VALUE Not present Test Performed by: [facility] - [address] [address] 50 The homocysteine concentration is elevated in this sample. Increased homocysteine has been associated with an increased risk of cardiovascular disease, cerebrovascular disease, peripheral arterial disease and thrombosis. Vitamin deficiencies (B6, B12 and folic acid) may also cause an increased homocysteine concentration. Inborn errors of methionine metabolism are a potential, but less likely, possibility for hyperhomocysteinemia. Consider plasma or serum methylmalonic acid analysis to rule out vitamin B12 deficiency. REFERENCE VALUE <=13 (Fasting) ADDITIONAL INFORMATION This test was developed and its performance characteristics determined by [facility] in a manner consistent with CLIA requirements. This test has not been cleared or approved by the U.S. Food and Drug Administration. Test Performed by: [facility] - [address] [address] ADDITIONAL INFORMATION This test was developed and its performance characteristics determined by [facility] in a manner consistent with CLIA requirements. This test has not been cleared or approved by the U.S. Food and Drug Administration. Test Performed by: [facility] - [address] [address] 52 Because ethnic data is not always readily available, this report includes an eGFR for both -Americans and non- Americans. The National Kidney Disease Education Program (NKDEP) does not endorse the use of the MDRD equation for patients that are not between the ages of 18 and 70, are , have extremes of body size, muscle mass, or nutritional status, or are non- or non-. According to the National Kidney Foundation, irrespective of diagnosis, the stage of the disease is based on the level of kidney function: Stage Description GFR(mL/min/1.73 m(2)) 1 Kidney damage with normal or decreased GFR 90 2 Kidney damage with mild decrease in GFR 60-89 3 Moderate decrease in GFR 30-59 4 Severe decrease in GFR 15-29 5 Kidney failure <15 (or dialysis) 53 Normal Range 180 to 914 Indeterminate Range 145 to 180 Deficient Range <145 54 Because ethnic data is not always readily available, this report includes an eGFR for both -Americans and non- Americans. The National Kidney Disease Education Program (NKDEP) does not endorse the use of the MDRD equation for patients that are not between the ages of 18 and 70, are , have extremes of body size, muscle mass, or nutritional status, or are non- or non-. According to the National Kidney Foundation, irrespective of diagnosis, the stage of the disease is based on the level of kidney function: Stage Description GFR(mL/min/1.73 m(2)) 1 Kidney damage with normal or decreased GFR 90 2 Kidney damage with mild decrease in GFR 60-89 3 Moderate decrease in GFR 30-59 4 Severe decrease in GFR 15-29 5 Kidney failure <15 (or dialysis) 55 Acute inflammation: >10.00 56 Copy Result to: EDIE LEAL ([id number]) 57 Serologic response to B. burgdorferi infection is not detected, but cannot rule out early infection during which low or undetectable antibody levels to B. burgdorferi may be present. If clinically indicated, a new serum specimen should be submitted in 7-14 days. Test Performed by: [place] [address] [employer] Supervisor: Quentin Oneil II, M.D., Ph.D. 58 [facility] Severe Sepsis and Septic Shock Management Bundle Measure requires all lactic acids initially measuring >2.0 mmol/L be repeated. 59 Because ethnic data is not always readily available, this report includes an eGFR for both -Americans and non- Americans. The National Kidney Disease Education Program (NKDEP) does not endorse the use of the MDRD equation for patients that are not between the ages of 18 and 70, are , have extremes of body size, muscle mass, or nutritional status, or are non- or non-. According to the National Kidney Foundation, irrespective of diagnosis, the stage of the disease is based on the level of kidney function: Stage Description GFR(mL/min/1.73 m(2)) 1 Kidney damage with normal or decreased GFR 90 2 Kidney damage with mild decrease in GFR 60-89 3 Moderate decrease in GFR 30-59 4 Severe decrease in GFR 15-29 5 Kidney failure <15 (or dialysis) 60 Acute inflammation: >10.00 61 SEE RESULT BELOW Name: CYNDI NELSON : [address]: Gustavo Al MD Acct: [id number] Unit: [id number] AGE: 70 Location: ED Re09/15/15 SEX: F Status: DEP ER SPEC: [id number] GISELLE: 09/16/15-0035 [facility] DR: Gustavo Al MD REQ: [id number] RECD: 09/16/15 STATUS: NADINE PETERSON DR: Ysabel Sharp MD _ SOURCE: URINE SPDESC: ORDERED: Urine Culture Procedure Result Reported Site Urine Culture Final 09/21/15- 1200 ML No growth of clinically significant organisms * ML - [facility] ([facility]) . END OF REPORT * ML=Testing performed at Main Lab DEPARTMENT OF PATHOLOGY, [address] [place] [address] Quinn Wynn M.D. Director [facility] # [id number] 62 SEE RESULT BELOW Name: CYNDI NELSON : [address]: Ysabel Sharp MD Acct: [id number] Unit: [id number] AGE: 70 Location: [facility] Re09/10/15 SEX: F Status: REG REF SPEC: [id number] GISELLE: 09/10/15 [facility] DR: Ysabel Sharp MD REQ: [id number] RECD: 09/10/15 STATUS: NADINE PETERSON DR: Edie Leal MD _ SOURCE: URINE SPDESC: ORDERED: Urine Culture Procedure Result Reported Site Urine Culture Final 09/11/15- 1222 ML No growth of clinically significant organisms * ML - MAIN LAB ([facility]) . END OF REPORT * ML=Testing performed at Main Lab DEPARTMENT OF PATHOLOGY, [address] [place] [address] Quinn Wynn M.D. Director [facility] # [id number] 63 Because ethnic data is not always readily available, this report includes an eGFR for both -Americans and non- Americans. The National Kidney Disease Education Program (NKDEP) does not endorse the use of the MDRD equation for patients that are not between the ages of 18 and 70, are , have extremes of body size, muscle mass, or nutritional status, or are non- or non-. According to the National Kidney Foundation, irrespective of diagnosis, the stage of the disease is based on the level of kidney function: Stage Description GFR(mL/min/1.73 m(2)) 1 Kidney damage with normal or decreased GFR 90 2 Kidney damage with mild decrease in GFR 60-89 3 Moderate decrease in GFR 30-59 4 Severe decrease in GFR 15-29 5 Kidney failure <15 (or dialysis) 64 Normal Range 180 to 914 Indeterminate Range 145 to 180 Deficient Range <145 65 HDL Interpretation: Undesirable: High Risk: Less than 40 mg/dL Desirable: Low Risk: Greater than 60 mg/dL 66 LDL Interpretation: Low Risk Optimal Level: LDL Less than 100 mg/dL Near or Above Optimal: LDL 100-129 mg/dL Borderline High Risk: LDL 130-159 mg/dL High Risk: LDL 160-189 mg/dL Very High Risk: LDL Greater than 189 mg/dL 67 Because ethnic data is not always readily available, this report includes an eGFR for both -Americans and non- Americans. The National Kidney Disease Education Program (NKDEP) does not endorse the use of the MDRD equation for patients that are not between the ages of 18 and 70, are , have extremes of body size, muscle mass, or nutritional status, or are non- or non-. According to the National Kidney Foundation, irrespective of diagnosis, the stage of the disease is based on the level of kidney function: Stage Description GFR(mL/min/1.73 m(2)) 1 Kidney damage with normal or decreased GFR 90 2 Kidney damage with mild decrease in GFR 60-89 3 Moderate decrease in GFR 30-59 4 Severe decrease in GFR 15-29 5 Kidney failure <15 (or dialysis) 68 Because ethnic data is not always readily available, this report includes an eGFR for both -Americans and non- Americans. The National Kidney Disease Education Program (NKDEP) does not endorse the use of the MDRD equation for patients that are not between the ages of 18 and 70, are , have extremes of body size, muscle mass, or nutritional status, or are non- or non-. According to the National Kidney Foundation, irrespective of diagnosis, the stage of the disease is based on the level of kidney function: Stage Description GFR(mL/min/1.73 m(2)) 1 Kidney damage with normal or decreased GFR 90 2 Kidney damage with mild decrease in GFR 60-89 3 Moderate decrease in GFR 30-59 4 Severe decrease in GFR 15-29 5 Kidney failure <15 (or dialysis) Procedures Date Code Description Status 01/07/2018 81821 Diffusing Capacity Completed 01/07/2018 13240 Plethysmography Determination Lung Volumes & Per Airway Completed Resist 01/07/2018 56641 Pulmonary Stress Testing, Inc Measurement Heart Rate, Completed Oximetry 07/28/2015 23404 Polysomnography Sleep Staging 4+ Parameters Completed 03/16/2015 54409 Sphenoid Endo W/Tissue Removal Completed 03/02/2015 97769 Nasal Endoscopy, Diagnostic Completed 12/30/2014 13762 Pulmonary Stress Test Simple Completed 12/11/2013 66733 Rad Exam; Hip Unilat Comp Completed 12/11/2013 94543 Rad Exam; Pelvis Completed 03/19/2012 60111 EEG Recording Awake & Drowsy Completed 02/23/2006 84797 EKG, Interpretation Only Completed Encounters Type Date Location Provider Dx Diagnosis Office Visit 08/27/2018 [place] [facility] Denzel Mark MD E83.52 Hypercalcemia 9:00a [facility] G20 Parkinson's disease F31.9 Bipolar disorder, unspecified Office Visit 07/10/2018 Neurohospitalist Ysabel Sharp, G20 Parkinson's 11:30a Clinic M.D. disease G31.84 Mild cognitive impairment, so stated D51.8 Other vitamin B12 deficiency anemias Office Visit 07/03/2018 Neurohospitalist Ysabel Sharp, G20 Parkinson's 10:00a Clinic M.D. 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 spectrum beta Hospitalists lactamase (Esbl) resistance B96.20 Unsp Escherichia coli as the cause of diseases classd elswhr N39.0 Urinary tract infection, site not specified S06.310D Contus/lac right cerebrum w/o loss of consciousness, subs G20 Parkinson's disease W10.8xxA Fall (on) (from) other stairs and steps, initial encounter Office Visit 02/15/2018 2:00p [place] [facility] Yasbel Sharp, G31.84 Mild cognitive [facility] Evelin impairment, so stated G20 Parkinson's disease Office Visit 12/10/2017 1:30p Pulmonology And Karina S. Z12.2 Encntr screen for [facility] N.P. malignant [facility] neoplasm of respiratory organs Z87.891 Personal history of nicotine dependence J44.9 Chronic obstructive pulmonary disease, unspecified Office Visit 11/30/2017 2:15p [place] [facility] Ysabel Gisely, G20 Parkinson's Services Of Is/It Project Manager M.D. disease G31.84 Mild cognitive impairment, so stated Office Visit 07/20/2017 2:00p [place] [facility] Ysabel Cowdery, G20 Parkinson's Services Of Is/It Project Manager M.D. disease G31.84 Mild cognitive impairment, so stated Office Visit 02/14/2017 1:30p [place] [facility] Ysabel Cowdery, G20 Parkinson's Services Of Is/It Project Manager M.D. disease R41.82 Altered mental status, unspecified Office Visit 10/18/2016 8:30a [place] [facility] Ysabelpetr Batresy, G20 Parkinson's Services Of Is/It Project Manager M.D. disease R41.82 Altered mental status, unspecified Office Visit 09/05/2016 1:15p Pulmonology And Maria Esther J44.9 Chronic [facility] Cheryle obstructive Is/It Project Manager pulmonary disease, unspecified Z87.891 Personal history of nicotine dependence Office Visit 06/28/2016 11:45a [place] [facility] Ysabelpetr Batresy, G20 Parkinson's Services Of Is/It Project Manager M.D. disease F32.9 Major depressive disorder, single episode, unspecified F41.9 Anxiety disorder, unspecified Office Visit 03/13/2016 Neurohospitalist Sotero Davis Parkinson's 10:48a Clinic MD malhotra Office Visit 03/13/2016 [facility] R53.1 Weakness 3:53p Assoc, Hospitalists SLAVA Cortez G20 Parkinson's disease F32.9 Major depressive disorder, single episode, unspecified F41.9 Anxiety disorder, unspecified Office Visit 03/12/2016 10:47a Neurohospitalist Clinic Tammi Do R53.1 Weakness MD Office Visit 03/12/2016 3:52p [facility], Rishabh R53.1 Weakness Hospitalists David N.Gilmer G20 Parkinson's disease F32.9 Major depressive disorder, single episode, unspecified F41.9 Anxiety disorder, unspecified Office Visit 03/11/2016 10:46a Neurohospitalist Sotero Davis [facility] MD disease R53.1 Weakness Office Visit 03/11/2016 3:52p [facility], R53.1 Weakness Assoc,pc Hospitalists N.P. G20 Parkinson's disease F32.9 Major depressive disorder, single episode, unspecified F41.9 Anxiety disorder, unspecified Office Visit 03/10/2016 3:51p [facility], R53.1 Weakness Assoc,pc Hospitalists N.P. G20 Parkinson's disease F32.9 Major depressive disorder, single episode, unspecified F41.9 Anxiety disorder, unspecified Office Visit 03/07/2016 11:00a Pulmonology And Maria Esther J44.9 Chronic [facility] obstructive Is/It Project Manager pulmonary disease, unspecified G47.33 Obstructive sleep apnea (adult) (pediatric) Z12.2 Encntr screen for malignant neoplasm of respiratory organs Office Visit 12/22/2015 3:30p [place] [facility] Ysabel Sharp, R41.82 Altered mental [facility] [place] Waters status, unspecified G20 Parkinson's disease G25.0 Essential tremor Office Visit 11/26/2015 12:49p [facility] Josee Amaral, N39.0 Urinary tract Assoc,pc N.P. infection, site Hospitalists not specified R53.1 Weakness R41.82 Altered mental status, unspecified G20 Parkinson's disease Office Visit 11/25/2015 12:47p [facility] Josee Amaral, N39.0 Urinary tract Assoc,pc N.P. infection, site Hospitalists not specified R53.1 Weakness R41.82 Altered mental status, unspecified G20 Parkinson's disease Office Visit 11/24/2015 [facility] Assoc,pc [place], [employer] infection, site Hospitalists not specified R53.1 Weakness R41.82 Altered mental status, unspecified G20 Parkinson's disease Office Visit 11/24/2015 Neurohospitalist Tyler Hernandez R41.82 Altered mental 3:23p Jayson Juarez M.D. status, unspecified G20 Parkinson's disease Office Visit 11/23/2015 11:45a Pulmonology And Maria Esther J44.9 Chronic [facility] obstructive Is/It Project Manager pulmonary disease, unspecified G47.33 Obstructive sleep apnea (adult) (pediatric) Office Visit 10/14/2015 4:00p [place] [facility] Ysabel Sharp, R41.89 Oth symptoms and [facility] M.D. signs w cognitive functions and awareness G25.0 Essential tremor R53.83 Other fatigue R29.6 Repeated falls Office Visit 09/13/2015 12:00p [place] [facility] Ysabel Sharp, R41.89 Oth symptoms and [facility] M.D. signs w cognitive functions and awareness R25.1 Tremor, unspecified R53.83 Other fatigue Office Visit 08/24/2015 8:30a Pulmonology And Maria Esther G47.33 Obstructive sleep [facility] apnea (adult) Is/It Project Manager (pediatric) J44.9 Chronic obstructive pulmonary disease, unspecified Office Visit 07/16/2015 Neurohospitalist Poli Boudreaux5.0 Essential 9:00a Clinic M.D. 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 M.D. sphenoidal [place] sinusitis R51 Headache Office Visit 03/16/2015 3:30p [facility] Rishabh J32.3 Chronic Assoc,pc Hernandez, N.P. sphenoidal Hospitalists sinusitis R09.02 Hypoxemia J44.9 Chronic obstructive pulmonary disease, unspecified Office Visit 03/09/2015 2:00p [facility] King Chronic C.M.A. AT M.D. sphenoidal [place] sinusitis R51 Headache Office Visit 03/02/2015 1:00p [facility] Chronic C.M.A. AT M.D. sphenoidal [place] sinusitis R51 Headache R09.81 Nasal congestion Office Visit 02/26/2015 Neurohospitalist Poli Boudreaux5.0 Essential 10:30a Clinic M.D. 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 & Other Forms V15.88 History Of Fall 332.1 Parkinsonism Secondary Office Visit 07/22/2014 2:15p [place] [facility] Ysabel Sharp, 333.1 Tremor Essential Services Of Is/It Project Manager M.D. & Other Forms V15.88 History Of Fall 332.1 Parkinsonism Secondary Office Visit 02/11/2014 11:30a [place] [facility] Ysabel Sharp, 333.1 Tremor Essential Services Of Is/It Project Manager M.D. 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 Pelvic Region & Har[place] Thigh Office Visit 10/27/2013 10:00a [place] [facility] Ysabel Sharp, 333.1 Tremor Essential Services Of Is/It Project Manager M.D. 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 & Other Forms 781.2 Gait Abnormality Office Visit 12/30/2012 2:00p [place] [facility] Ysabel Sharp, 333.1 Tremor Essential Services Of Is/It Project Manager M.D. & Other Forms Office Visit 11/04/2012 11:00a [place] [facility] Ysabel Sharp, 333.1 Tremor Essential Services Of Is/It Project Manager M.D. & Other Forms 781.2 Gait Abnormality Office Visit 08/07/2012 1:00p [place] [facility] Ysabel Sharp, 333.1 Tremor Essential Services Of Is/It Project Manager M.D. & Other Forms 780.93 Memory Loss 300.00 Anxiety State Unspec Office Visit 07/17/2012 1:00p [place] [facility] Ysabel Sharp, 333.1 Tremor Essential Services Of Is/It Project Manager M.D. & Other Forms 780.02 Transient Alteration Of Awareness Office Visit 03/18/2012 2:15p [place] [facility] Ysabel Sharp, 333.1 Tremor Essential Services Of Is/It Project Manager M.D. & Other Forms 437.9 Cerebrovascular Disease Or Lesion Unspec 781.2 Gait Abnormality V15.88 History Of Fall Office Visit 01/03/2012 2:45p [place] [facility] Ysabel Sharp, 333.1 Tremor Essential Services Of Is/It Project Manager M.D. & Other Forms Office Visit 11/23/2011 2:15p [place] [facility] Ysabel Sharp, 333.1 Tremor Essential Services Of Is/It Project Manager M.D. & Other Forms Plan of Treatment Future Appointment(s):02/26/2019 11:00 am - Denzel Mark MD at [place] [facility]11/29/2018 10:30 am - Ysabel Sharp M.D. at [place] [facility]12/12/2018 1:30 pm - Maria Esther Lobato MD at [facility]09/18/2018 - Ysabel Sharp M.D.E83.52 [id number] Parkinson's diseaseFollow up:3 months (30 min - possible cognitive testing)
--- OUTSIDE RECORDS SUMMARY | 2018-10-16 21:28 | XMS REPORT | Continuity of Care Document ---
:1945 External Reference #:[id number] Author Name Constantino Espinoza M.D. Address [address] [place] [address] Care Team Providers Name Role Phone Angela Leal MD Primary Care Physician Unavailable Payers Date Identification Numbers Payment Provider Subscriber Policy Number: [id number] Medicare - [place] Cyndi Nelson PayID: [id number] [address] [place] [address] Policy Number: [id number] [facility] Cyndi Nelson PayID: [id number] [address] [place] [address] Problems Active Problems Provider Date Asthma Onset: Seasonal allergy Onset: Chronic obstructive lung disease Onset: Rosacea Onset: Parkinson's disease Onset: H/O: depression Onset: Nuclear senile cataract Marcus Hough M.D. Onset: 10/05/2015 Presence of intraocular lens Constantino Espinoza M.D. Onset: 01/18/2016 Anxiety Onset: Tremor Onset: Vitreous degeneration Constantino Espinoza M.D. 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 ETOH Use Occasionally consumes alcohol Recreational Drug Use Denies Drug Use Tobacco Use Start: Unknown End: Patient is a former smoker Unknown Smoking Status Reviewed: 09/25/18 Patient is a former smoker Allergies, Adverse Reactions, Alerts Active Allergies Reaction Severity Comments Date Augmentin 10/05/2015 Sulfa Antibiotics 10/05/2015 Avelox 10/05/2015 Biaxin 10/05/2015 Medications Active Medications SIG Qnty Indications Ordering Provider Date Mirtazapine Take 1 Tablet By Unknown 15mg Mouth AT Bedtime Tablets Ipratropium Unknown [place]/Albuterol Sulfate 0.5-2.5(3)mg/3ML Solution Tylenol as needed Unknown 325mg Tablets Aspirin Unknown 81mg Tablets DR Docusate Sodium Unknown 100mg Capsules Zofran as needed Unknown 4mg Tablets Tamsulosin HCL Angela Leal 0.4mg M.D. Capsules Propranolol HCL Unknown 10mg Tablets Fluticasone Unknown Propionate 50mcg/Act Suspension Spiriva Handihaler Inhale Contents Of Unknown 1 Unit Daily 18mcg Capsules Carbidopa-Levodopa Unknown 25-100mg Tablets Symbicort Unknown 160-4.5mcg/Act Aerosol [place] Carbonate ER Take 1 Tablet By Unknown Mouth Twice A Day 300mg Tablets ER Clonazepam Unknown 0.5mg Tablets Lamotrigine Take 1 Tablet Unknown 100mg Every Morning Tablets Sertraline HCL Unknown 100mg Tablets Omeprazole Unknown 40mg Capsules DR History Medications Ketorolac Tromethamine one drop three 10ml Constantino Espinoza, 01/03/2016 - 0.5% times left, twice M.D. 01/16/2016 Solution right Prednisolone Acetate one drop three 15ml Constantino Espinoza, 01/03/2016 - 1% times left eye, M.D. 01/15/2017 Suspension twice right eye Ciprofloxacin HCL instill one drop 10ml Constantino Espinoza, 01/03/2016 - 0.3% in the right eye M.D. 01/02/2016 Solution three times a day, start the day before surgery Polytrim one drop three 10ml Constantino Espinoza, 01/03/2016 - 96346-1.1Unit/ML-% times left eye M.D. 01/16/2016 Solution Systane Ultra 1 drop right eye Constantino Espinoza, 01/02/2016 - 0.4-0.3% every 2 hours M.D. 07/27/2016 Solution Risperidone Unknown - 0.5mg Tablets 01/02/2016 Prempro Unknown - 0.3-1.5mg Tablets 09/24/2018 Procedures Date Code Description Status 08/22/2017 22042 Est Patient Comprehensive Exam Completed 01/24/2016 72222 Extracapsular Cataract Extraction W/Intraocular Lens Completed 01/17/2016 03926 Extracapsular Cataract Extraction W/Intraocular Lens Completed 01/03/2016 14145 Ophthalmic Biometry Completed 01/03/2016 14816 Ophthalmic Biometry Completed 01/03/2016 67711 Scanning Computerized Opthalmic Diagnostic Posterior Seg Completed Retina 01/03/2016 19254 Computerized Corneal Topography Completed 10/05/2015 58096 New Patient Comprehensive Exam Completed 10/05/2015 509 [facility] [facility] [place] Completed 02/18/2013 40611 Est Patient Comprehensive Exam Completed 12/04/2011 67645 Visual Field Exam Extended Completed 11/14/2011 84132 Est Patient Comprehensive Exam Completed 02/15/2010 79645 New Patient Comprehensive Exam Completed Encounters Type Date Location Provider Dx Diagnosis Office Visit 01/03/2016 Marcus Hough, Constantino Espinoza, H25.11 Age- related 2:30p , pc Evelin nuclear cataract, right eye H25.12 Age-related nuclear cataract, left eye G20 Parkinson's disease Plan of Treatment 09/25/2018 - Constantino Espinoza M.D.H43.813 Vitreous degeneration, bilateralComments:Smoking can increase the risk of developing or worsening any eye related disease, as well as affect your overall health. If you are a smoker , we strongly recommend that you quit.If you are not a smoker, we strongly recommend that you do not start. You have a Posterior Vitreous Detachment. If you have any changes in your floaters or flashing lights, please contact this office.Follow up:1 Year Follow Up DFE You can expect to have your eyes dilated at your next visit. If Dr. Espinoza orders any additional testing, it may require extra time. We recommend that you bring sunglasses, as dilation drops often make you light sensitive until they wear off. We always recommend you bring someone to drive you home if you are uncomfortable driving with your eyes dilated. If you have any questions before your next visit, feel free to call our office at .H20.493 Other secondary cataract, bilateralComments :There is clouding in the sac that holds your artificial lens. When your vision bothers you, we will do a laser treatment here in the office to improve your vision.G20 Parkinson's gzyamuhQ60.45 Other chronic allergic conjunctivitisComments:USE OVER THE COUNTER ARTIFICAL TEARS 2-3 TIMES A DAY TO BOTH EYES FOR 2 WEEKS, THEN DECREASE TO NEEDED.
[2018-10-16 22:06] LABS: Urine Appearance Cloudy; Urine Bacteria 3+ (Absent); Urine Bilirubin Negative (Negative); Urine Blood Negative (Negative); Urine Color Yellow; Urine Glucose Negative (Negative); Urine Ketones Trace (Negative); Urine Nitrite Negative (Negative); Urine Protein Negative (Negative); Urine Red Blood Cell 1+(3-5/hpf) (Absent); Urine Specific Gravity 1.005 (1.010-1.030); Urine Urobilinogen Negative (Negative); Urine White Blood Cell 2+(11-20/hpf) (Absent)
[2018-10-16] MEDS ORDERED: Ciprofloxacin TAB* 500 MG PO ONE (22:16)
[2018-10-16 22:50] VITALS: BP 134/88
== END 2018-10-16 22:50 | disposition home or self-care (01) ==
LOC: ED 19:55
DX: R41.82 Altered mental status, unspecified (principal); N39.0 Urinary tract infection, site not specified; Z87.891 Personal history of nicotine dependence; I10 Essential (primary) hypertension; J44.9 Chronic obstructive pulmonary disease, unspecified; Z88.2 Allergy status to sulfonamides
CPT/HCPCS: 36415; 80053; 81003; 81015; 83605; 84484; 85025; 85610; 86140; 87040; 87077; 87086; 87186; 96360; 99283; A9270-GY

== ENCOUNTER 2018-10-21 20:08 | Emergency (ER) | payer MEDICARE ==
[2018-10-21] MEDS ORDERED: Ondansetron INJ* 2 MG/ML VIAL IV ONE (21:30)
[2018-10-21] MEDS ORDERED: NS 0.9% 1000 ML** 1,000 ML IV ONE (21:30)
[2018-10-21 22:21] LABS: ABS Eosinophils 0.3 10^3/ul (0-0.6); ABS Lymphocytes 0.7 10^3/ul (1.0-4.8); ABS Monocytes 0.5 10^3/ul (0-0.8); ABS Neutrophils 7.5 10^3/ul (1.5-7.7); Eosinophil % 2.9 %; Hematocrit 41 % (35-47); Hemoglobin 13.7 g/dL (12.0-16.0); Lymphocyte % 7.6 %; Mean Corpuscular HGB Conc 33 g/dL (31-36); Mean Corpuscular Hemoglobin 32 pg (27-31); Mean Corpuscular Volume 97 fL (80-97); Mean Platelet Volume 8.6 fL (7.4-10.4); Platelet Count 248 10^3/uL (150-450); Red Blood Count 4.23 10^6 /uL (3.70-4.87); Red Cell Distribution Width 13 % (10-15)
[2018-10-21 22:37] LABS: ALT < 3 U/L (7-52); AST 10 U/L (13-39); Albumin 3.8 g/dL (3.2-5.2); Albumin/Globulin Ratio 1.7 (1-3); Alkaline Phosphatase 108 U/L (34-104); Anion Gap 6 mmol/L (2-11); BUN/Creatinine Ratio 16.2 (8-20); Blood Urea Nitrogen 11 mg/dL (6-24); C Reactive Protein 4.11 mg/L (<8.01); CO2 Carbon Dioxide 23 mmol/L (22-32); Calcium 10.5 mg/dL (8.6-10.3); Chloride 106 mmol/L (101-111); EGFR African American 103.2 (>60); EGFR Non-African American 85.3 (>60); Globulin 2.2 g/dL (2-4); Glucose 125 mg/dL (70-100); Potassium 3.9 mmol/L (3.5-5.0); Sodium 135 mmol/L (135-145)
[2018-10-21] MEDS ORDERED: Albuterol/Ipratropium NEB.SOL* Albuterol 2.5 MG/Ipratropium 0.5 MG 3 ML INH ONE (23:59)
[2018-10-22 02:20] LABS: Urine Appearance Turbid; Urine Bacteria 1+ (Absent); Urine Bilirubin Negative (Negative); Urine Blood Negative (Negative); Urine Color Yellow; Urine Glucose Negative (Negative); Urine Ketones Negative (Negative); Urine Nitrite Negative (Negative); Urine Protein Negative (Negative); Urine Red Blood Cell Trace(0-2/hpf) (Absent); Urine Specific Gravity 1.008 (1.010-1.030); Urine Squamous Epithelial Cell Present (Absent); Urine Urobilinogen Negative (Negative); Urine White Blood Cell 2+(11-20/hpf) (Absent)
[2018-10-22] MEDS ORDERED: Fluconazole 100 MG TAB* TAB PO ONE (03:01)
[2018-10-22] MEDS ORDERED: Cephalexin CAP* 500 MG PO ONE (03:03)
--- NOTE | 2018-10-22 03:10 | ED ---
Nausea/Vomiting/Diarrhea HPI - HPI Summary HPI Summary: Patient complains of vomiting 2 after eating this evening, decreased alertness. Diagnosed with UTI 4 days ago, only taking Cipro. History of recurrent UTIs with no symptoms. Also no bowel movement in 3 days. Patient started on home O2 at 2 L 3 days. Denies fever, cough, sore throat, CP, SOB, diarrhea, abdominal pain, change in urine, change in BM. Medical history is Parkinson's, COPD, bipolar, HTN. - History of Current Complaint Chief Complaint: EDNauseaVomitDiarrh Stated Complaint: GENERAL ILLNESS PER EMS Time Seen by Provider: 10/21/18 21:27 Hx Obtained From: Patient, Family/Word Processing Operator Onset/Duration: Sudden Onset, Lasting Hours Severity Currently: None Pain Intensity: 0 Pain Scale Used: 0-10 Numeric Aggravating Factor(s): Food Alleviating Factor(s): Nothing Vomiting Frequency: At Meal Time Diarrhea Presence: No - Allergies/Home Medications Allergies/Adverse Reactions: Allergies Allergy/AdvReac Type Severity Reaction Status Date / Time amoxicillin [From Augmentin] Allergy Rash Verified 10/21/18 22:05 clarithromycin Allergy Rash Verified 10/21/18 22:05 clavulanic acid Allergy Rash Verified 10/21/18 22:05 [From Augmentin] moxifloxacin Allergy Rash Verified 10/21/18 22:05 Sulfa (Sulfonamide Allergy Rash Verified 10/21/18 22:05 Antibiotics) Home Medications: Home Medications OXcarbazepine [Oxcarbazepine] 600 mg PO BID 10/21/18 [History Confirmed 10/21/18 ] PMH/Surg Hx/FS Hx/Imm Hx Endocrine/Hematology History: Denies: Hx Anticoagulant Therapy, Hx Diabetes, Hx Systemic Lupus Erythematosus, Hx Thyroid Disease Cardiovascular History: Reports: Hx Hypertension Denies: Hx Congestive Heart Failure, Hx Pacemaker/ICD Respiratory History: Reports: Hx Chronic Obstructive Pulmonary Disease (COPD) Denies: Hx Asthma GI History: Denies: Hx Ulcer History: Reports: Other Problems/Disorders - UTI Denies: Hx Dialysis, Hx Renal Disease Musculoskeletal History: Reports: Hx Arthritis - RIGHT KNEE, Other Musculoskeletal History Denies: Hx Rheumatoid Arthritis, Hx Osteoporosis Comment Only: Hx Tendonitis - Osteoarthritis Sensory History: Reports: Hx Cataracts - BILATERAL, Hx Contacts or Glasses, Hx Deafness - L ear Denies: Hx Hearing Aid Opthamlomology History: Reports: Hx Cataracts - BILATERAL, Hx Contacts or Glasses Neurological History: Reports: Hx Dementia, Other Neuro Impairments/Disorders - PARKINSON'S Psychiatric History: Reports: Hx Anxiety, Hx Depression, Hx Bipolar Disorder Denies: Hx Attention Deficit Hyperactivity Disorder, Hx Eating Disorder, Hx Panic Disorder, Hx Post Traumatic Stress Disorder, Hx Inpatient Treatment, Hx Community Mental Health Tx, Hx Schizophrenia, Hx Suicide Attempt, Hx of Violent Episodes Against Others, Hx Substance Abuse, Other Psychiatric Issues/Disorders - Cancer History Hx Chemotherapy: No Hx Radiation Therapy: No - Surgical History Surgery Procedure, Year, and Place: RIGHT KNEE REPLACEMENT 2012 [place]. LEFT OOPHERECTOMY 20 +YRS AGO. ORIF R HAND [facility] 10 Hx Anesthesia Reactions: No Infectious Disease History: No Infectious Disease History: Denies: Hx Clostridium Difficile, Hx Hepatitis, Hx Human Immunodeficiency Virus (HIV), Hx of Known/Suspected MRSA, Hx Shingles, Hx Tuberculosis, Hx Known/ Suspected VRE, Hx Known/Suspected VRSA, History Other Infectious Disease, Traveled Outside the [place] in Last 30 Days - Family History Known Family History: Positive: Cardiac Disease, Respiratory Disease Negative: Renal Disease - Social History Alcohol Use: Occasionally Hx Substance Use: No Substance Use Type: Reports: None Hx Tobacco Use: Yes Smoking Status (MU): Former Smoker Type: Cigarettes Amount Used/How Often: 3 cigs daily Length of Time of Smoking/Using Tobacco: 50 YRS Have You Smoked in the Last Year: No Review of Systems Constitutional: Negative Eyes: Negative ENT: Negative Cardiovascular: Negative Respiratory: Negative Positive: Vomiting, Nausea Genitourinary: Negative Musculoskeletal: Negative Skin: Negative Neurological: Negative Psychological: Normal All Other Systems Reviewed And Are Negative: Yes Physical Exam - Summary Physical Exam Summary: Abdomen soft nontender. Lung sounds clear to auscultation bilaterally. Arm. Triage Information Reviewed: Yes Vital Signs On Initial Exam: Initial Vitals Temp Pulse Resp BP Pulse Ox 96.8 F 68 20 138/75 92 10/21/18 20:15 10/21/18 20:15 10/21/18 20:15 10/21/18 20:15 10/21/18 20:15 Vital Signs Reviewed: Yes Appearance: Positive: Well-Appearing Skin: Positive: Warm Head/Face: Positive: Normal Head/Face Inspection Eyes: Positive: Normal ENT: Positive: Normal ENT inspection Neck: Positive: Supple Respiratory/Lung Sounds: Positive: Clear to Auscultation Cardiovascular: Positive: Normal Abdomen Description: Positive: Nontender Musculoskeletal: Positive: Normal Neurological: Positive: Normal Psychiatric: Positive: Normal AVPU Assessment: Alert - [place] Coma Scale Best Eye Response: 4 - Spontaneous Best Motor Response: 6 - Obeys Commands Best Verbal Response: 5 - Oriented Coma Scale Total: 15 Diagnostics - Vital Signs Vital Signs Temp Pulse Resp BP Pulse Ox 10/22/18 00:33 71 15 92 10/21/18 22:02 66 85 10/21/18 20:15 96.8 F 68 20 138/75 92 - Laboratory Lab Results: Lab Results 10/21/18 10/21/18 10/21/18 Range/Units 22:13 22:13 22:13 WBC 9.0 (3.5-10.8) 10^3/uL RBC 4.23 (3.70-4.87) 10^6 /uL Hgb 13.7 (12.0-16.0) g/dL Hct 41 (35-47) % MCV 97 (80-97) fL MCH 32 H (27-31) pg MCHC 33 (31-36) g/dL RDW 13 (10-15) % Plt Count 248 (150-450) 10^3/uL MPV 8.6 (7.4-10.4) fL Neut % (Auto) 83.4 % Lymph % (Auto) 7.6 % [place] % (Auto) 5.8 % Eos % (Auto) 2.9 % Baso % (Auto) 0.3 % Absolute Neuts (auto) 7.5 (1.5-7.7) 10^3/ul Absolute Lymphs (auto) 0.7 L (1.0-4.8) 10^3/ul Absolute Monos (auto) 0.5 (0-0.8) 10^3/ul Absolute Eos (auto) 0.3 (0-0.6) 10^3/ul Absolute Basos (auto) 0.0 (0-0.2) 10^3/ul Absolute Nucleated RBC 0.0 10^3/ul Nucleated RBC % 0.0 ABG pH (7.35-7.45) ABG pCO2 (35-45) mmHg ABG pO2 (80-100) mmHg ABG HCO3 (19-31) mmol/L ABG O2 Saturation (94.0-98.0) % ABG Base Excess (-2.0-2.0) mmol/L Sodium 135 (135-145) mmol/L Potassium 3.9 (3.5-5.0) mmol/L Chloride 106 (101-111) mmol/L Carbon Dioxide 23 (22-32) mmol/L Anion Gap 6 (2-11) mmol/L BUN 11 (6-24) mg/dL Creatinine 0.68 (0.51-0.95) mg/dL Est GFR ( Amer) 103.2 (>60) Est GFR (Non-Af Amer) 85.3 (>60) BUN/Creatinine Ratio 16.2 (8-20) Glucose 125 H (70-100) mg/dL Lactic Acid 1.4 (0.5-2.0) mmol/L Calcium 10.5 H (8.6-10.3) mg/dL Total Bilirubin 0.50 (0.2-1.0) mg/dL AST 10 L (13-39) U/L ALT < 3 L (7-52) U/L Alkaline Phosphatase 108 H (34-104) U/L C-Reactive Protein 4.11 (<8.01) mg/L Total Protein 6.0 L (6.4-8.9) g/dL Albumin 3.8 (3.2-5.2) g/dL Globulin 2.2 (2-4) g/dL Albumin/Globulin Ratio 1.7 (1-3) Urine Color Urine Appearance Urine pH (5-9) Ur Specific [place] (1.010-1.030) Urine Protein (Negative) Urine Ketones (Negative) Urine Blood (Negative) Urine Nitrate (Negative) Urine Bilirubin (Negative) Urine Urobilinogen (Negative) Ur Leukocyte Esterase (Negative) Urine WBC (Auto) (Absent) Urine RBC (Auto) (Absent) Ur Squamous Epith Cells (Absent) Urine Bacteria (Absent) Hyaline Casts (Absent) Urine Yeast (Absent) Urine Glucose (Negative) 10/22/18 10/22/18 Range/Units 00:25 01:35 WBC (3.5-10.8) 10^3/uL RBC (3.70-4.87) 10^6 /uL Hgb (12.0-16.0) g/dL Hct (35-47) % MCV (80-97) fL MCH (27-31) pg MCHC (31-36) g/dL RDW (10-15) % Plt Count (150-450) 10^3/uL MPV (7.4-10.4) fL Neut % (Auto) % Lymph % (Auto) % [place] % (Auto) % Eos % (Auto) % Baso % (Auto) % Absolute Neuts (auto) (1.5-7.7) 10^3/ul Absolute Lymphs (auto) (1.0-4.8) 10^3/ul Absolute Monos (auto) (0-0.8) 10^3/ul Absolute Eos (auto) (0-0.6) 10^3/ul Absolute Basos (auto) (0-0.2) 10^3/ul Absolute Nucleated RBC 10^3/ul Nucleated RBC % ABG pH 7.40 (7.35-7.45) ABG pCO2 37 (35-45) mmHg ABG pO2 62 L (80-100) mmHg ABG HCO3 23.6 (19-31) mmol/L ABG O2 Saturation 94.8 (94.0-98.0) % ABG Base Excess -1.5 (-2.0-2.0) mmol/L Sodium (135-145) mmol/L Potassium (3.5-5.0) mmol/L Chloride (101-111) mmol/L Carbon Dioxide (22-32) mmol/L Anion Gap (2-11) mmol/L BUN (6-24) mg/dL Creatinine (0.51-0.95) mg/dL Est GFR ( Amer) (>60) Est GFR (Non-Af Amer) (>60) BUN/Creatinine Ratio (8-20) Glucose (70-100) mg/dL Lactic Acid (0.5-2.0) mmol/L Calcium (8.6-10.3) mg/dL Total Bilirubin (0.2-1.0) mg/dL AST (13-39) U/L ALT (7-52) U/L Alkaline Phosphatase (34-104) U/L C-Reactive Protein (<8.01) mg/L Total Protein (6.4-8.9) g/dL Albumin (3.2-5.2) g/dL Globulin (2-4) g/dL Albumin/Globulin Ratio (1-3) Urine Color Yellow Urine Appearance Turbid Urine pH 7.0 (5-9) Ur Specific [place] 1.008 L (1.010-1.030) Urine Protein Negative (Negative) Urine Ketones Negative (Negative) Urine Blood Negative (Negative) Urine Nitrate Negative (Negative) Urine Bilirubin Negative (Negative) Urine Urobilinogen Negative (Negative) Ur Leukocyte Esterase 1+ A (Negative) Urine WBC (Auto) 2+(11-20/hpf) A (Absent) Urine RBC (Auto) Trace(0-2/hpf) (Absent) Ur Squamous Epith Cells Present A (Absent) Urine Bacteria 1+ A (Absent) Hyaline Casts Present A (Absent) Urine Yeast Present A (Absent) Urine Glucose Negative (Negative) Result Diagrams: 10/21/18 22:13 10/21/18 22:13 Lab Statement: Any lab studies that have been ordered have been reviewed, and results considered in the medical decision making process. Naus/Vom/Diarrhea Course/Dx - Course Course Of Treatment: Patient complains of vomiting 2 after eating this evening , decreased alertness. Diagnosed with UTI 4 days ago, only taking Cipro. History of recurrent UTIs with no symptoms. Also no bowel movement in 3 days. Patient started on home O2 at 2 L 3 days. Denies fever, cough, sore throat, CP , SOB, diarrhea, abdominal pain, change in urine, change in BM. Medical history is Parkinson's, COPD, bipolar, HTN. Vital signs within normal limits. Labs unremarkable. Chest x-ray unremarkable. EKG sinus rhythm. CT brain negative for acute process. Urine positive for improving UTI with new candiduria infection noted. Discussed patient with Dr. Liu who agreed patient could be discharged. Patient started on Keflex and fluconazole and Zofran. Rx for same. Follow-up with primary care. - Differential Dx/Diagnosis Provider Diagnosis: Candiduria, UTI (urinary tract infection), Nausea and vomiting Condition At Discharge: Stable Discharge - Sign-Out/Discharge Documenting (check all that apply): Patient Departure Patient Received Moderate/Deep Sedation with Procedure: No - Discharge Plan Condition: Stable Disposition: HOME Prescriptions: Cephalexin CAP* [Keflex CAP*] 500 mg PO TID 10 Days #30 cap Fluconazole [Fluconazole 200 mg tab] 200 mg PO DAILY WITH MEAL 14 Days #14 tablet Ondansetron ODT TAB* [Zofran 4 MG Odt TAB*] 4 mg PO Q8H PRN 4 Days #14 tab.odt PRN Reason: Nausea Patient Education Materials: Urinary Tract Infection in Women (ED) Referrals: Angela Leal MD [Primary Care Provider] - Additional Instructions: Take fluconazole as directed for yeast infection of urine. Take Keflex as directed for UTI. Maintain oxygen level at 3-3-1/2 L to maintain O2 sats. Follow-up with contract coordinator Dr. Lobato for further evaluation of low O2 sats. Follow-up with primary care for urine infections. Return to the ED for any new or worsening symptoms. - Billing Disposition and Condition Condition: STABLE Disposition: Home
[2018-10-22] MEDS ORDERED: Ondansetron ODT TAB* 4 MG PO ONE (03:29)
[2018-10-22 04:06] VITALS: BP 117/76
== END 2018-10-22 04:00 | disposition home or self-care (01) ==
LOC: ED 20:08
DX: B37.49 Other urogenital candidiasis (principal); R11.2 Nausea with vomiting, unspecified; G20 Parkinson's disease; J44.9 Chronic obstructive pulmonary disease, unspecified; F31.9 Bipolar disorder, unspecified; I10 Essential (primary) hypertension; Z88.1 Allergy status to other antibiotic agents; Z88.0 Allergy status to penicillin; Z88.2 Allergy status to sulfonamides; Z79.899 Other long term (current) drug therapy; Z87.891 Personal history of nicotine dependence
CPT/HCPCS: 36415; 70450; 71046; 80053; 81003; 81015; 82803; 83605; 85025; 86140; 87086; 93005; 96361; 96374; 99284; A9270-GY; J2405

== ENCOUNTER 2018-10-29 09:37 | Observation (INO) | payer MEDICARE ==
[2018-10-29] MEDS ORDERED: NS 0.9% 1000 ML** 1,000 ML IV ONE (10:06)
--- NOTE | 2018-10-29 10:08 | ED ---
Altered Mental Status - HPI Summary HPI Summary: This patient is a 73 year old F presenting to [facility] by EMS accompanied by aid with a chief complaint of altered mental status since 10/27/18. Pt was recently diagnosed with a UTI (10/16/18) at the ED and her aid reports that afterwards she was not as active (was sent home on cipro at that time). Aid mentions pt at baseline is conversive and interactive. Aid mentions the slight facial droop on the left 2 days ago, SOB/hypoxia when placed on her side (was never on O2 until 2 weeks ago then on 2L for 2 weeks, now on 4 L at 94%). Pt has not urinated since yesterday (hx urinary retention did not take flomax), no BM, and has not taken any medications since 10/26/18 (including carbidopa/levidopa). LEVEL 5 CAVEAT - AMS - History Of Current Complaint Chief Complaint: EDAltMentalStatus Stated Complaint: AMS PER EMS Time Seen by Provider: 10/29/18 09:55 Hx Obtained From: Family/Bankruptcy Legal Assistant Hx From Patient Unobtainable Due To: Altered Mental Status Last Known Well Date: 10/26/18 Onset/Duration: Still Present Timing: Constant Aggravating Factor(s): Unknown - Allergies/Home Medications Allergies/Adverse Reactions: Allergies Allergy/AdvReac Type Severity Reaction Status Date / Time amoxicillin [From Augmentin] Allergy Rash Verified 10/21/18 22:05 clarithromycin Allergy Rash Verified 10/21/18 22:05 clavulanic acid Allergy Rash Verified 10/21/18 22:05 [From Augmentin] moxifloxacin Allergy Rash Verified 10/21/18 22:05 Sulfa (Sulfonamide Allergy Rash Verified 10/21/18 22:05 Antibiotics) Home Medications: Home Medications Carbidopa/Levodop 25/100 MG(*) [Sinemet 25/100 TAB(*)] 3 tab PO TID 10/29/18 [ History Confirmed 10/29/18] Cholecalciferol (Vitamin D3) [Vitamin D3] 25 mcg PO DAILY 10/29/18 [History Confirmed 10/29/18] Cyanocobalamin TAB* [Vitamin B12 TAB*] 500 mcg PO BID 10/29/18 [History Confirmed 10/29/18] Docusate Sodium [Stool Softener] 50 mg PO BID 10/29/18 [History Confirmed ] L.acidoph,Paracasei, B.lactis [Probiotic] 1 cap PO DAILY 10/29/18 [History Confirmed 10/29/18] Mirtazapine TAB* [Remeron TAB*] 15 mg PO BEDTIME 10/29/18 [History Confirmed 01/09] OXcarbazepine TAB(*) [Trileptal 300 mg TAB(*)] 600 mg PO BID 10/29/18 [History Confirmed 10/29/18] Ondansetron TAB* [Zofran 4 MG Tab*] 4 mg PO Q6H PRN 10/29/18 [History Confirmed 10/29/18] PMH/Surg Hx/FS Hx/Imm Hx Previously Healthy: No - LEVEL 5 CAVEAT - AMS Endocrine/Hematology History: Denies: Hx Anticoagulant Therapy, Hx Diabetes, Hx Systemic Lupus Erythematosus, Hx Thyroid Disease Cardiovascular History: Reports: Hx Hypertension Denies: Hx Congestive Heart Failure, Hx Pacemaker/ICD Respiratory History: Reports: Hx Chronic Obstructive Pulmonary Disease (COPD) Denies: Hx Asthma GI History: Denies: Hx Ulcer History: Reports: Other Problems/Disorders - UTI Denies: Hx Dialysis, Hx Renal Disease Musculoskeletal History: Reports: Hx Arthritis - RIGHT KNEE, Other Musculoskeletal History Denies: Hx Rheumatoid Arthritis, Hx Osteoporosis Comment Only: Hx Tendonitis - Osteoarthritis Sensory History: Reports: Hx Cataracts - BILATERAL, Hx Contacts or Glasses, Hx Deafness - L ear Denies: Hx Hearing Aid Opthamlomology History: Reports: Hx Cataracts - BILATERAL, Hx Contacts or Glasses Neurological History: Reports: Hx Dementia, Other Neuro Impairments/Disorders - PARKINSON'S Psychiatric History: Reports: Hx Anxiety, Hx Depression, Hx Bipolar Disorder Denies: Hx Attention Deficit Hyperactivity Disorder, Hx Eating Disorder, Hx Panic Disorder, Hx Post Traumatic Stress Disorder, Hx Inpatient Treatment, Hx Community Mental Health Tx, Hx Schizophrenia, Hx Suicide Attempt, Hx of Violent Episodes Against Others, Hx Substance Abuse, Other Psychiatric Issues/Disorders - Cancer History Hx Chemotherapy: No Hx Radiation Therapy: No - Surgical History Surgery Procedure, Year, and Place: RIGHT KNEE REPLACEMENT 2012 [place]. LEFT OOPHERECTOMY 20 +YRS AGO. ORIF R HAND [facility] 10 Hx Anesthesia Reactions: No Infectious Disease History: No Infectious Disease History: Denies: Hx Clostridium Difficile, Hx Hepatitis, Hx Human Immunodeficiency Virus (HIV), Hx of Known/Suspected MRSA, Hx Shingles, Hx Tuberculosis, Hx Known/ Suspected VRE, Hx Known/Suspected VRSA, History Other Infectious Disease, Traveled Outside the [place] in Last 30 Days - Family History Known Family History: Positive: Cardiac Disease, Respiratory Disease Negative: Renal Disease - Social History Alcohol Use: None Hx Substance Use: No Substance Use Type: Reports: None Hx Tobacco Use: Yes Smoking Status (MU): Former Smoker Type: Cigarettes Amount Used/How Often: 3 cigs daily Length of Time of Smoking/Using Tobacco: 50 YRS Have You Smoked in the Last Year: No Review of Systems Negative: Fever All Other Systems Reviewed And Are Negative: No - Comments Additional Review of Systems Comments: LEVEL 5 CAVEAT - AMS Physical Exam - Summary Physical Exam Summary: LEVEL 5 CAVEAT - AMS NORMAL PHYSICAL EXAM Constitutional: elderly, ill appearing Skin: Warm, Dry HENT: Normocephalic; Atraumatic Eyes: Conjunctiva normal Neck: Musculoskeletal ROM normal neck. (-) JVD, (-) Stridor, (-) Tracheal deviation Cardio: Rhythm regular, rate normal, Heart sounds normal; Intact distal pulses; The pedal pulses are 2+ and symmetric. Radial pulses are 2+ and symmetric. (-) Murmur Pulmonary/Chest wall: Effort normal. (-) Respiratory distress, (-) Wheezes, + rales RLL Abd: Soft, (-) tenderness, (+) Suprapubic Distension, (-) Guarding, (-) Rebound Musculoskeletal: (-) Edema Lymph: (-) Cervical adenopathy Neuro MS: Somnolent but arouses, oriented to name, date, place, situation; dysarthric speech CN: VFFTC bilat; OU 3 to 2mm, brisk; EOMI L nasolabial flattening MOTOR: Nl bulk & tone, UE; 4/5, LE 2/5 SENSORY: Intact to LT/PP x 4 GAIT: deferred Psych: deferred GCS - 14 Triage Information Reviewed: Yes Vital Signs On Initial Exam: Initial Vitals Temp Pulse Resp BP Pulse Ox 98.4 F 67 14 137/83 94 10/29/18 09:37 10/29/18 09:37 10/29/18 09:37 10/29/18 09:37 10/29/18 09:37 Vital Signs Reviewed: Yes - Belkys Coma Scale Best Eye Response: 3 - To Speech Best Motor Response: 6 - Obeys Commands Best Verbal Response: 5 - Oriented Coma Scale Total: 14 Diagnostics - Vital Signs Vital Signs Temp Pulse Resp BP Pulse Ox 10/29/18 09:52 66 21 131/82 94 10/29/18 09:51 66 25 94 10/29/18 09:37 98.4 F 67 14 137/83 94 - Laboratory Result Diagrams: 10/29/18 10:32 10/29/18 10:32 Lab Statement: Any lab studies that have been ordered have been reviewed, and results considered in the medical decision making process. - Radiology CXR Radiology Interpretation Completed By: Radiologist Summary of Radiographic Findings: CXR reveals, per radiologist, IMPRESSION: LINEAR ATELECTASIS OF THE RIGHT LUNG BASE. ED physician has reviewed this report. - CT Brain CT CT Interpretation Completed By: Radiologist Summary of CT Findings: Brain CT reveals, per radiologist, IMPRESSION: NO ACUTE INTRACRANIAL PATHOLOGY. ED physician has reviewed this radiology report. - EKG 09 EKG Rhythm: Sinus Rhythm EKG Comparison: No Significant Change - from 10/21/18 Summary of EKG Findings: An EKG at 0942 reveals rate 66 bpm, sinus, left axis deviation, TWI in V5 and V6, no change from prior EKG on 10/21/18. Re-Evaluation - Re-Evaluation First Eval Re-Evaluation Time: 11:40 Comment: Discussed results. Labs back notable for nml white count, slightly elevated calcium of 12, negative troponin, lactic acid of .8, pt pending Urine. CXR notable for linear atelectasis of right lower lobe, and CT Brain negative. Altered Mental Statu Course/Dx - Course Course Of Treatment: 73 y/o F w hx parkinson's, UTIs, urinary retention p/w AMS/ lethargy. Given that this patient has normal O2 (on 4L), BG hypoxia and hypoglycemia/DKA less likely. DDx still includes: electrolyte abnl (low/high Na , low/high mag, hypocalcemia, low phos), thyroid issues, infection/sepsis, hypothermia, uremia, trauma, encephalopathy/encephalitis, psych, stroke, SAH, postictal from seizure. Will check labs, head ct, urine, ekg, cxr. Reassess. Urine culture on 10/16/18 had Streptococcus pasterianus, sent home on Cipro. Negative head CT on 10/21/18. Sent home on Keflex 500mg on 10/22/18. - labs notable for neg trop, no leukocytosis, neg UA and CXR neg, brain CT. - neurology consulted for L facial droop. suspect lethargy could be 2/2 missing carvidopa/levadopa vs infectious cause. - given 1 L IVF. UOP w 1 L out. - admit to [facility] [place] - Diagnoses Provider Diagnoses: Altered mental status - Provider Notifications Discussed Care Of Patient With: Darshan Dolan Time Discussed With Above Provider: 12:36 Instructed by Provider To: Other - Discussed pt case with Dr. Dolan, who recommends MRI and will see pt on the floor. 1242 - Discussed pt case with hospitalist, Dr. Raymundo, who agrees to admit pt. Discharge - Sign-Out/Discharge Documenting (check all that apply): Patient Departure - Admit Patient Received Moderate/Deep Sedation with Procedure: No - Discharge Plan Condition: Stable Disposition: ADMITTED TO [facility] Referrals: Angela Leal MD [Primary Care Provider] - - Billing Disposition and Condition Condition: STABLE Disposition: Admitted to [facility] - Attestation Statements Document Initiated by Scribe: Yes Documenting Scribe: Ana Kerr Provider For Whom Alphonso is Documenting (Include Credential): Dr. Jonatan Lopez Scribe Attestation: IAna, scribed for Dr. Jonatan Lopez on 10/29/18 at 1331. Scribe Documentation Reviewed: Yes Provider Attestation: The documentation as recorded by the scribe, Ana Kerr accurately reflects the service I personally performed and the decisions made by me, Dr. Jonatan Lopez Status of Scribe Document: Viewed
[2018-10-29 10:56] LABS: ABS Eosinophils 0.4 10^3/ul (0-0.6); ABS Lymphocytes 0.7 10^3/ul (1.0-4.8); ABS Monocytes 0.9 10^3/ul (0-0.8); ABS Neutrophils 5.1 10^3/ul (1.5-7.7); Eosinophil % 5.9 %; Hematocrit 44 % (35-47); Hemoglobin 14.7 g/dL (12.0-16.0); Lymphocyte % 9.8 %; Mean Corpuscular HGB Conc 33 g/dL (31-36); Mean Corpuscular Hemoglobin 32 pg (27-31); Mean Corpuscular Volume 97 fL (80-97); Mean Platelet Volume 8.9 fL (7.4-10.4); Nucleated Red Blood Cells % 0.1; Platelet Count 271 10^3/uL (150-450); Red Blood Count 4.58 10^6 /uL (3.70-4.87); Red Cell Distribution Width 13 % (10-15)
[2018-10-29 11:25] LABS: Salicylate < 2.50 mg/dL (<30)
[2018-10-29 11:29] LABS: ALT 5 U/L (7-52); AST 9 U/L (13-39); Albumin 4.1 g/dL (3.2-5.2); Albumin/Globulin Ratio 1.5 (1-3); Alkaline Phosphatase 148 U/L (34-104); Anion Gap 8 mmol/L (2-11); BUN/Creatinine Ratio 14.3 (8-20); Blood Urea Nitrogen 11 mg/dL (6-24); CO2 Carbon Dioxide 26 mmol/L (22-32); Calcium 12.1 mg/dL (8.6-10.3); Chloride 103 mmol/L (101-111); Creatine Kinase 23 U/L (10-223); EGFR African American 89.4 (>60); EGFR Non-African American 73.9 (>60); Globulin 2.8 g/dL (2-4); Glucose 110 mg/dL (70-100); Magnesium 1.9 mg/dL (1.9-2.7); Potassium 4.1 mmol/L (3.5-5.0); Sodium 137 mmol/L (135-145); Total Protein 6.9 g/dL (6.4-8.9)
[2018-10-29 11:48] LABS: TSH (Thyroid Stimulating Horm) 0.94 mcIU/mL (0.34-5.60)
[2018-10-29 12:12] LABS: Urine Appearance Cloudy; Urine Bilirubin Negative (Negative); Urine Blood Negative (Negative); Urine Color Yellow; Urine Glucose Negative (Negative); Urine Ketones Trace (Negative); Urine Nitrite Negative (Negative); Urine Protein Negative (Negative); Urine Specific Gravity 1.011 (1.010-1.030); Urine Urobilinogen Negative (Negative)
[2018-10-29 13:04] LABS: INR 1.13 (0.82-1.09)
[2018-10-29] MEDS ORDERED: clonazePAM TAB(*) 0.5 MG PO PRN (14:42)
[2018-10-29] MEDS ORDERED: Ondansetron TAB* 4 MG PO PRN (14:42)
[2018-10-29] MEDS: LEVODOPA PO SCH ×2 (15:55→21:30)
[2018-10-29] MEDS: CARBIDOPA PO SCH ×2 (15:55→21:30)
--- NOTE | 2018-10-29 16:19 | CONS ---
CC: Dr. Angela Leal; Dr. Mark; Dr. Sharp * CONSULTATION REPORT: DATE OF CONSULT: 10/29/18 CURRENT LOCATION: Emergency department, room 10. PRIMARY CARE PROVIDER: Dr. Angela Leal. JAWBONE PULLER: Dr. Mark. NEUROLOGIST: Dr. Sharp. REASON FOR CONSULT: Altered mental status, possible left facial droop. HISTORY OF PRESENT ILLNESS: Ms. Nelson is a 73-year-old female with a very complicated medical history including longstanding psychiatric issues, currently on Trileptal, lithium, and Lamictal; a history of tremors with position and intention; also a history of bradykinesia; Parkinson disease; a history of hyperparathyroidism and hypercalcemia, followed by Endocrinology; and a history of fall back in March with a right frontal hemorrhage, it was small and traumatic in nature; a history of cognitive decline. She has been seen in the hospital here multiple times in the last 10 days, each time was noted to have a urinary tract infection, she was initially treated with Cipro on 10/16/18, came back on 10/21/18 and sent home on Keflex, subsequently came back today with worsening altered mental status. The noticed that she has not been taking anything p.o. for several days and feels that she is dehydrated. The patient also has not had her Sinemet since yesterday at 3 p.m. She was brought to the hospital unresponsive this morning. The patient's states that she was staring straight ahead. She subsequently has had some improvement in her mental status, but continues to be confused, following commands intermittently, staring at times. He denies that she has had any tremor, but states that she is much lower than normal. Her voice is soft. Her facial expression is diminished. Her children's zoo caretaker notes that she may have had a left facial droop but about a week ago, currently he does not notice any left facial droop. She was brought to the ER today where she was noted to be hypercalcemic with a calcium of 12. Subsequent workup showed no evidence of urinary tract infection, no significant metabolic abnormalities otherwise. CK was normal. There is no strong evidence for dehydration. During my examination in the ER, the patient was very lethargic, was awake and following some commands, but at times was not following all commands. Her was at the bedside and able to provide me some supplemental history. He denies that she has fallen or had any head trauma recently. He feels that her Parkinson disease has worsened in the last day or so to the point where now she is really unable to speak much. He has a hard time hearing her and she has not been able to swallow safely. PAST MEDICAL HISTORY: As noted above. PAST SURGICAL HISTORY: Includes hand surgery and right knee replacement as well as oophorectomy. FAMILY HISTORY: Significant for multiple sclerosis, Parkinson disease, and seizure disorder. Mother had Parkinson disease. Sister had MS. SOCIAL HISTORY: She is and lives with her . She is left handed , former smoker, quit in 2012, smoked approximately 25-pack year. She rarely drinks alcohol. Denies any drug use. REVIEW OF SYSTEMS: In 14-organ systems was difficult to obtain due to her mental status as noted above in the HPI. PHYSICAL EXAM: Vital Signs: Temperature of 98.6, pulse of 64, respiratory rate of 13, O2 sat of 95% on 3 L, blood pressure 130s to 140s/79 to 82. In general, she is a thin, somewhat poorly nourished female, lying in the [facility]. and children's zoo caretaker at the bedside. She does smile occasionally. She is normocephalic, atraumatic. Her sclerae are anicteric. Mucous membranes are very dry. Oropharynx is clear. Her neck is somewhat stiff. Chest is clear to auscultation bilaterally. Cardiovascular is regular rate and rhythm. Abdomen is nondistended. Extremities: No significant clubbing, cyanosis or edema. Her skin is warm and dry. On neurologic exam, she is awake, but somnolent. She does look around the room, but seems to look more to the right than the left. She has a decreased blink and decreased facial expression. Her voice is very hypophonic. She does follow simple commands, will squeeze my hands, wiggle her fingers and toes. She seems to have slightly less movement on the left side than the right side. Motor Exam: She does lift her arms up, but has a hard time holding them up antigravity. She is very bradykinetic, left subtly worse than the right. Her left and right leg, she can lift off the bed, but not hold antigravity from more than 5 seconds bilaterally. Distally, she wiggles her toes. Sensation was difficult to assess, appears to be intact bilaterally. DTRs were trace at the right biceps, brachioradialis, trace at the right patella, absent at the ankle, downgoing Babinski's. She was trace at the left biceps and triceps and brachioradialis, 1+ at the left patella, absent at the left ankle, downgoing Babinski's. She had no resting tremor noted. She did have increased tone throughout with some mild cogwheeling, right greater than left. There was no resting tremor appreciated. No postural tremor appreciated. Her gait cannot be tested. DIAGNOSTIC STUDIES/LAB DATA: Lab work includes a complete metabolic profile with a glucose of 110, calcium of 12.1, AST of 9, ALT of 5, alk phos of 148, ammonia 54. INR of 1.13. MCH of 32. Absolute neutrophils 0.7, absolute monocytes 0.9. Urine: Trace ketones, salicylates less than 2.5. Most recent PTH of 106. She had a head CT done, which showed no acute intracranial abnormalities. We did review the films. She has some enlargement of her ventricles with some atrophy throughout. No acute changes. Chest x-ray showed linear atelectasis at the right lung base. ASSESSMENT AND PLAN: Ms. Nelson is a 73-year-old female with a very complicated medical history who presents to the hospital with altered mental status, worsening bradykinesia, dysphagia, nothing p.o. for several days. She has not been able to take her carbidopa/levodopa since 3:30 yesterday afternoon. There was some concern at one point in the last week that she may have had some left facial droop that seems to have resolved. She does have a significant psychiatric history and is on lithium, Trileptal and Lamictal, has underlying severe depression. Most recently, she was started on Trileptal about a week prior but her called her treating psychiatrist who had stopped the Trileptal several days ago. She has been off of that for several days prior to admission. Besides the multiple antibiotics, she has had no other major medication changes. She also has a history of elevated parathyroid hormone with hypercalcemia and comes in today with calcium of 12. The differential for her altered mental status is large, but include hypercalcemia, medications including lithium toxicity and the recent addition of trileptal as well as the multiple antibiotics she has been on, the possibility of underlying infection, decompensated Parkinson disease, decompensated depression/psychiatric issues, possibility of a stroke given left sided weakness, urinary retention and thyroid disease. Seizures are much less likely. The plan is to admit her to the hospital for full workup. Most concerning to me is the fact that she has not had her carbidopa/levodopa in almost 24 hours. The plan is to get orally dissolving carbidopa/levodopa and try to supplement for now until she hopefully can take p.o. I will order at the same dosage that she is currently getting, although bioavailability may be less. We could consider Apokyn as well if her dystonia does not improve. In addition, I am going to get an MRI of her brain to look for any evidence of new stroke given the reported facial droop and objective findings of left-sided weakness. Examination was very difficult, she is very dystonic on exam, so it is difficult to tell if she is truly weak on the left side. She is on a baby aspirin. She has a history of traumatic intracranial hemorrhage back in March, but this was small and based on CT scan, there is no evidence of new bleeding. I am also worried about her recent refractory UTI and multiple antibiotics as well as the recent addition of Trileptal (which was discontinued ) all around the time of her decompensation. Finally, her calcium is elevated as well which can cause altered mental status. I defer to her medical team regarding additional workup and treatment of her underlying medical issues. I will continue to follow her closely and make further recommendations as necessary. Thank you for the opportunity to participate in the care of this very interesting patient. [id number]/[facility] #: [id number] NEMO
[2018-10-29 16:40] LABS: Myoglobin 33.3 ng/mL (14.3-65.8)
[2018-10-29 16:41] LABS: Lithium 0.6 mmol/L (0.6-1.2)
[2018-10-29] MEDS: NS 0.9% 1000 ML** 1,000 ML IV SCH (16:55)
--- NOTE | 2018-10-29 19:14 | HP ---
CC: Dr. Angela Leal * HISTORY AND PHYSICAL: DATE OF ADMISSION: 10/29/18 TIME OF EVALUATION: 1:40 p.m. PRIMARY CARE PROVIDER: Angela Leal MD. CHIEF COMPLAINT: "She is weak." HISTORY OF PRESENT ILLNESS: Mrs. Nelson is a 73-year-old lady with a past medical history of Parkinson disease, mild dementia, COPD, osteoarthritis, depression, neurogenic bladder, and urethral stricture who presented to the emergency room with complaints of progressive weakness and lethargy. The patient is unable to provide any history at this time, so information is obtained from her and glass furnace operator at the bedside and also from her medical records. As per her , the patient was doing well until 3 weeks ago. He states that she was "flying around with her new walker." They noticed progressive lethargy and weakness and they recognized that this is usually how her UTI presents, so she came to the emergency room on 10/16/18 and was diagnosed with a urinary tract infection. She was discharged home with ciprofloxacin and her states that she did have improvement of her symptoms, although she did not go back to her baseline. They noted that she was becoming weaker and lethargic again, so they returned to the emergency room on 10/21/18. At that point, her urine culture from 10/16/18 was available and had grown Streptococcus pasteurianus greater than 100,000 colonies and that was sensitive to levofloxacin. On the ED visit on 10/22/18, she was diagnosed with UTI again and at that point, there was also a concern that she had Ananya in the urine and she was discharged on Keflex and fluconazole. The patient's condition continued to decline and yesterday, she was unable to take her Sinemet, so today she was even weaker with a "masked face," unable to move, so the brought her to the emergency room for further evaluation. He has noted that the patient has required supplemental oxygen. She has a history of COPD and in the past, she would wear 2 L of oxygen at night, but for the past couple of years, she has not required any supplemental oxygen, although he still has it available at home. The patient did not complain of shortness of breath, but her checked her oxygen saturation with a pulse oximeter at home and noted that the numbers were low, so she has been using supplemental oxygen at home since 10/16/18. He denies any cough or other respiratory symptoms, but they continued to monitor her oxygen at home to provide supplemental oxygen. There is no report of nausea, vomiting, or diarrhea. Her aide does report that last week when the patient was walking, she thought the patient was listing to the left, so she was walking with the patient and assisting her through the left side. Today, there was some question of possible left facial droop that resolved by the time she got to the emergency room. PAST MEDICAL HISTORY: 1. Parkinson disease. 2. Depression. 3. Neurogenic bladder with urethral stricture, on Flomax as outpatient. 4. Mild dementia. 5. COPD. 6. Status post right total knee replacement. 7. Status post oophorectomy. 8. Status post right hand open reduction and internal fixation. 9. 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 MEDICATION LIST: 1. Aspirin 81 mg p.o. daily. 2. Symbicort 160/4.5 two puffs inhaled b.i.d. 3. Carbidopa/levodopa 25/100 three tablets p.o. t.i.d. 4. Cholecalciferol 25 mcg p.o. daily. 5. Clonazepam 0.5 mg p.o. t.i.d. as needed for anxiety. 6. Vitamin B12 at 500 mcg p.o. b.i.d. 7. Colace 50 mg p.o. b.i.d. 8. Ellura (cranberry pills) 1 pill p.o. daily. 9. Probiotic 1 capsule p.o. daily. 10. Lamotrigine 100 mg p.o. b.i.d. 11. Azure carbonate 300 mg p.o. b.i.d. 12. Remeron 15 mg p.o. at bedtime. 13. Omeprazole 40 mg p.o. daily. 14. Ondansetron 4 mg p.o. q.6 hours p.r.n. for nausea and vomiting. 15. Oxcarbazepine 600 mg p.o. b.i.d. 16. Propranolol 10 mg p.o. daily. 17. Sertraline 150 mg p.o. q.a.m. 18. Tamsulosin 0.4 mg p.o. at bedtime. 19. Spiriva 1 capsule inhaled daily. ALLERGIES: To AMOXICILLIN, CLARITHROMYCIN, MOXIFLOXACIN, and SULFA - the patient develops a rash. FAMILY HISTORY: Her mother has a history of Parkinson disease. Sister has history of multiple sclerosis. The father had a history of asthma. There is also family history of heart disease. SOCIAL HISTORY: The patient has no history of alcohol or drug use. She was a smoker for 45 years of half a pack a day; she quit in 2012. Surrogate decision maker is her , Matthew Nelson, phone number is [phone]. REVIEW OF SYSTEMS: I am unable to obtain a review of systems from the patient at this time due to her lethargy and all the information is obtained from the patient's and glass furnace operator at bedside. PHYSICAL EXAMINATION GENERAL: The patient is an elderly lady, lying in the ED stretcher, in no acute distress. VITAL SIGNS: Temperature 99.0, heart rate is 64, respiratory rate is 15, oxygen saturation is 94% on 2 L nasal cannula, blood pressure is 113/79. HEENT: Pupils are equal. Dry mucous membranes. CHEST: Breath sounds bilaterally with no added sounds. CVS: Normal S1, S2. Regular rate and rhythm. ABDOMEN: Soft, nontender, nondistended. Bowel sounds are present. EXTREMITIES: No edema. NEURO: The patient is lethargic, but arousable. She has a mask face at this time and is bradykinetic. She can move all 4 extremities, but very slowly and she appears to have generalized weakness. I could not find any focal neurological deficits. Her face appears to be symmetric at this time, but she was unable to smile or grimace. DIAGNOSTIC STUDIES/LAB DATA: The patient had CBC that showed a WBC of 7, hemoglobin of 14.7, hematocrit of 44, platelets of 271 with 71% neutrophils. INR is 1.1. Chemistry showed a sodium of 137, potassium of 4.1, chloride of 103 , bicarb of 26, BUN of 11, creatinine of 0.7, glucose of 110, calcium of 12.1, lactic acid of 0.8, magnesium of 1.9. LFTs showed a total bilirubin of 0.4, AST of 9, ALT of 5, alk phos of 148. Ammonia is likely elevated at 54 (limit is 53). CPK 23. Troponin is 0. TSH is 0.94. Her urinalysis showed only trace ketones and salicylate level was less than 2.5. CT of the brain without contrast showed no acute intracranial pathology and chest x- ray showed linear atelectasis of the right lung base. EKG done on 10/29/18 at 9:41 a.m. shows sinus rhythm at 66 beats per minute with no acute ischemic changes. There is a left anterior fascicular block and this EKG is mostly unchanged from her prior one from 10/22/18, although t that one the baseline is poor. ASSESSMENT AND PLAN: Mrs. Nelson is a 73-year-old lady with a past medical history of Parkinson disease, mild dementia, chronic obstructive pulmonary disease, osteoarthritis, depression, lithium-induced hyperparathyroidism, and neurogenic bladder with urethral stricture who presents to the emergency room with lethargy and weakness, likely multifactorial in the setting of recent urinary tract infection, dehydration secondary to poor oral intake, hypercalcemia, and decompensated Parkinson disease as the patient has not been able to take her Sinemet. 1. Parkinson disease decompensation. I believe this is the major m48/m60 tank driver of the patient's symptoms at this time. She has had this progressive decline that probably started with a urinary tract infection and has continued since, but this more sudden decline is probably because she was not able to take her Sinemet yesterday. She will be admitted as observation to the telemetry floor and for now, we are going to give her the Sinemet ODT and see how she responds. If she is able to move better and able to swallow other medications, we will continue with her usual medications, but if that fails, then she will need an NG tube placed so she can receive all her other medications. Her is in agreement with a temporary NG tube. There is concern for possible cerebrovascular accident as there is report of some left-sided listing and possible left facial droop this morning, but that appears to be unlikely. The patient will have an MRI of the brain and she will be monitored with neurological checks. Another contributing factor is her hypercalcemia. The patient has had chronic calcium elevation for many years and she was seen by endocrinology (Dr. Denzel Mark) and the impression is that the patient has lithium-induced hyperparathyroidism. Since stopping lithium is not an option, his recommendation was for the patient to be checked for osteoporosis and be treated with an IV bisphosphonate or Sensipar with or without calcitonin. He had also recommended a 24-hour urine collection to check her calcium and in August , this was 81, so it was not felt that she would need surgery at that point. The patient had a thyroid ultrasound done at the end of August and in the mid pole of the left lobe, a lateral hyperechoic nodule that was intermittent suspicion. Her PTH was elevated; her intact PTH was 106.2. Vitamin D was 25. I believe her hypercalcemia is worse now due to her dehydration and it is also playing a role in her symptoms, so I am going to continue IV fluids and monitor it. Her recent urinary tract infection is probably what started this whole process, but at this time she does not appear to have one. 2. Depression. We will continue her lithium, lamotrigine, and we will check a level of both, but there are no reported recent medication changes. 3. Neurogenic bladder. We will continue Flomax as urinary retention seems to be one of the drivers of her recurrent urinary tract infections. 4. DVT prophylaxis. The patient has a score of 2 on the DVT Prophylaxis Assessment Guide and she will receive subcutaneous heparin. 5. Code status was discussed with the patient's and at this point, the patient is full code and he would be agreeable with a trial of intubation for respiratory failure and also a temporary feeding tube. TIME SPENT: Approximately 65 minutes were spent with the patient interview, medical records' review, physical examination to complete this admission, more than half of this time was spent [id number] with the patient and coordination of care. [id number]/CPS #: [id number]
[2018-10-29] MEDS: Mometasone/Formoter 200/5 MDI INH SCH (19:27)
[2018-10-29] MEDS ORDERED: OXcarbazepine TAB(*) 300 MG PO SCH (21:00)
[2018-10-29] MEDS: Cyanocobalamin TAB* 500 MCG PO SCH (21:31)
[2018-10-29] MEDS: CMCS:Lithium Carbonate ER (NF) 300 MG TAB.ER PO SCH (21:31)
[2018-10-29] MEDS: lamoTRIgine TAB(*) 100 MG PO SCH (21:31)
[2018-10-29] MEDS: Mirtazapine TAB* 15 MG PO SCH (21:32)
[2018-10-29] MEDS: Tamsulosin CAP* 0.4 MG PO SCH (21:33)
[2018-10-29] MEDS: Heparin VIAL(*) 5000 UNITS/ML VIAL (FIVE THOUSAND) SUBCUT SCH (21:33)
[2018-10-29] MEDS ORDERED: Polyethylene Glycol 3350* 17 GM PACKET PO PRN (21:51)
[2018-10-29] MEDS ORDERED: Senna TAB PO PRN (21:52)
[2018-10-30] MEDS: NS 0.9% 1000 ML** 1,000 ML IV SCH ×2 (02:49→15:19)
[2018-10-30] MEDS: Heparin VIAL(*) 5000 UNITS/ML VIAL (FIVE THOUSAND) SUBCUT SCH ×3 (05:23→21:18)
[2018-10-30 06:20] LABS: ABS Eosinophils 0.3 10^3/ul (0-0.6); ABS Lymphocytes 1.2 10^3/ul (1.0-4.8); ABS Monocytes 0.7 10^3/ul (0-0.8); ABS Neutrophils 3.2 10^3/ul (1.5-7.7); Eosinophil % 5.6 %; Hematocrit 38 % (35-47); Hemoglobin 12.7 g/dL (12.0-16.0); Lymphocyte % 22.6 %; Mean Corpuscular HGB Conc 34 g/dL (31-36); Mean Corpuscular Hemoglobin 33 pg (27-31); Mean Corpuscular Volume 97 fL (80-97); Mean Platelet Volume 8.8 fL (7.4-10.4); Platelet Count 269 10^3/uL (150-450); Red Cell Distribution Width 13 % (10-15); White Blood Count 5.5 10^3/uL (3.5-10.8)
[2018-10-30 06:32] LABS: BUN/Creatinine Ratio 19.1 (8-20); Calcium 10.7 mg/dL (8.6-10.3); EGFR African American 103.2 (>60); EGFR Non-African American 85.3 (>60); Potassium 3.8 mmol/L (3.5-5.0)
[2018-10-30] MEDS: Mometasone/Formoter 200/5 MDI INH SCH ×2 (07:37→21:29)
[2018-10-30] MEDS: Tiotropium CAP.INH* CAP.INH/18 MCG (USE ORDER SET !) INH SCH (07:37)
--- NOTE | 2018-10-30 08:16 | PN ---
Subjective Date of Service: 10/30/18 Length of Stay: 1 Days Interval History: Overnight, she seems to have improved somewhat. Her is at the bedside as is one of her caregivers. She is now taking PO slowly, is sitting up an and more interactive. She received a dose of Trileptal yesterday but her notes that it was discontinued days ago per her treating psychiatrist when her clinical condition started to worsen. She is more talkative this am and less bradykinetic. She denies any current pain. Her feels that her left side is working better. No new issues overnight. Studies: MRI Brain: Films personally reviewed, atrophy with ventricular enlargement, likely hydrocephalus ex vacuo and some chronic white matter changes, no acute changes, appears similar to prior in June Belt: 0.6 Therapeutic UA: negative Calcium: improved 12-->10 CK: wnl Tele overnight: No events Family History: Unchanged from Admission Social History: Unchanged from Admission Past Medical History: Unchanged from Admission Objective Active Medications: Aspirin (Aspirin Ec Tab*) 81 mg PO DAILY [facility] Carbidopa/Levodopa (Sinemet 25/100 Tab(*)) 3 tab PO TID [facility] Clonazepam (Klonopin Tab(*)) 0.5 mg PO TID PRN PRN Reason: ANXIETY Cyanocobalamin (Vitamin B12 Tab*) 500 mcg PO BID [facility] Last Admin: 10/29/18 21:31 Dose: 500 mcg Device (Tiotropium Inhaler Device*) 1 each INH 0900 ONE Stop: 10/30/18 09:01 Last Admin: 10/30/18 07:37 Dose: 1 each Heparin Sodium (Porcine) (Heparin Vial(*)) 5,000 units SUBCUT Q8HR [facility] Last Admin: 10/30/18 05:23 Dose: 5,000 units Sodium Chloride (Ns 0.9% 1000 Ml) 1,000 mls @ 100 mls/hr IV PER RATE [facility] Last Admin: 10/30/18 02:49 Dose: 100 mls/hr Lamotrigine (Lamictal Tab(*)) 100 mg PO BID [facility] Last Admin: 10/29/18 21:31 Dose: 100 mg [place] Carbonate (Belt Carbonate Er (Nf)) 300 mg PO BID [facility]; Protocol Last Admin: 10/29/18 21:31 Dose: 300 mg Mirtazapine (Remeron Tab*) 15 mg PO BEDTIME [facility] Last Admin: 10/29/18 21:32 Dose: 15 mg Mometasone Furoate/Formoterol Fumar (Dulera 200/5 Mdi*) 2 puff INH BID [facility]; Protocol Last Admin: 10/30/18 07:37 Dose: 2 puff Ondansetron HCl (Zofran Tab*) 4 mg PO Q6H PRN PRN Reason: NAUSEA/VOMITING Pantoprazole Sodium (Protonix Tab*) 40 mg PO QAM [facility] Polyethylene Glycol/Electrolytes (Miralax*) 17 gm PO DAILY PRN PRN Reason: CONSTIPATION Last Admin: 10/30/18 06:36 Dose: 17 gm Propranolol HCl (Inderal Tab*) 10 mg PO QAM [facility] Senna (Senokot Tab*) 1 tab PO DAILY PRN PRN Reason: CONSTIPATION Last Admin: 10/30/18 06:36 Dose: 1 tab Sertraline HCl (Zoloft*) 150 mg PO QAM [facility] Tamsulosin HCl (Flomax Cap*) 0.4 mg PO BEDTIME [facility] Last Admin: 10/29/18 21:33 Dose: 0.4 mg Tiotropium [place] (Spiriva Cap.Inh*) 1 cap INH DAILY [facility] Last Admin: 10/30/18 07:37 Dose: 1 cap Vital Signs 10/29/18 10/29/18 10/29/18 09:37 09:51 09:52 Temperature 98.4 F Pulse Rate 67 66 66 Respiratory 14 25 21 Rate Blood Pressure 137/83 131/82 (mmHg) O2 Sat by Pulse 94 94 94 Oximetry 10/29/18 10/29/18 10/29/18 10:00 10:39 11:01 Temperature Pulse Rate 68 67 66 Respiratory 16 19 Rate Blood Pressure 135/81 (mmHg) O2 Sat by Pulse 95 93 91 Oximetry 10/29/18 10/29/18 10/29/18 11:22 12:00 12:22 Temperature 98.1 F 98.2 F Pulse Rate 63 62 65 Respiratory 14 13 13 Rate Blood Pressure 141/79 139/82 (mmHg) O2 Sat by Pulse 96 96 95 Oximetry 10/29/18 10/29/18 10/29/18 12:52 13:00 13:22 Temperature 98.6 F 98.6 F 98.8 F Pulse Rate 63 65 65 Respiratory 13 16 15 Rate Blood Pressure 132/79 139/83 (mmHg) O2 Sat by Pulse 95 95 93 Oximetry 10/29/18 10/29/18 10/29/18 13:52 14:00 14:22 Temperature 98.8 F 99.0 F 99.0 F Pulse Rate 67 66 63 Respiratory 17 15 15 Rate Blood Pressure 125/84 113/79 (mmHg) O2 Sat by Pulse 93 93 94 Oximetry 10/29/18 10/29/18 10/29/18 16:06 16:25 19:24 Temperature 98.6 F 97.9 F 97.7 F Pulse Rate 70 70 76 Respiratory 16 20 20 Rate Blood Pressure 139/78 127/77 121/67 (mmHg) O2 Sat by Pulse 94 94 97 Oximetry 10/29/18 10/29/18 10/29/18 19:30 20:00 23:17 Temperature 97 F Pulse Rate 73 67 Respiratory 18 20 17 Rate Blood Pressure 118/75 (mmHg) O2 Sat by Pulse 95 97 Oximetry 10/30/18 10/30/18 03:17 07:43 Temperature 97.8 F Pulse Rate 65 67 Respiratory 16 16 Rate Blood Pressure 134/76 (mmHg) O2 Sat by Pulse 100 95 Oximetry Intake and Output Last 24 Hours 10/28/18 10/29/18 10/30/18 10/31/18 06:59 06:59 06:59 06:59 Intake Total 2372 Output Total 1525 Balance 847 Weight 128 lb Intake: IV Fluids 2272 ABX - PIPERACILLIN 30 NS (0.9%) 263 IVPB 100 ABX - PIPERACILLIN 100 Oral 0 Output: [place] 1525 Other: Estimated Void Medium Oxygen Devices in Use Now: Nasal Cannula Neurology Exam: General: Well-developed, thin female in no acute distress HEENT: Normocephelic/atraumatic, sclera anicteric, mucous membranes dry Chest: Clear to auscultation bilaterally Cardiovascular: Regular rate and rhythm without murmurs, rubs, gallops Abdomen: Soft, non-tender/non-distended Extremities: No clubbing, cyanosis, or edema Neurological Findings: Awake, more alert, smiling, more talkative. Decreased blink and hypomimia Speech: fluent without dysarthria, marked hypophonia Cranial Nerve: PERRL, EOM intact, no nystagmus, no diplopia, facial sensation intact, mild weakness of the left lower face, hearing intact, palate raises symmetrically, tongue midline Motor: Generally symmetric, increased tone throughout with cogwheeling right greater than left UEs. No focal weakness today, no significant drift Sensation: intact to LT throughout Finger to nose intact, bradykinetic, no significant resting tremors or action tremors, difficulty with finger tap and pronation/supination right > left Result Diagrams: 10/30/18 05:39 10/30/18 05:39 Assessment/Plan Ms. Nelson is a 73-year-old female with a very complicated medical history who presents to the hospital with altered mental status, worsening bradykinesia , dysphagia, nothing p.o. for several days. She has not been able to take her carbidopa/levodopa since 3:30 pm the day prior to admission. There was some concern about left facial droop and left sided weakness. She does have a significant psychiatric history and is on lithium, Trileptal and Lamictal, has underlying severe depression. Most recently, she was started on Trileptal about a week prior but her called her treating psychiatrist who had stopped the Trileptal several days prior to admission. She has been off of that for several days prior to admission. Besides the multiple antibiotics, she has had no other major medication changes. She also has a history of elevated parathyroid hormone with hypercalcemia and was admitted with a calcium of 12. At this point, I suspect a more acute decompensation of her PD due to multiple factors including recent infection with multiple medication additions, +/- addition of Trileptal although this was stopped several days prior to acute worsening, decreased PO with inability to take her medications. In addition, her hypercalcemia is likely confusing an already difficult situation. 1. Now that she is taking PO, I am going to switch her Parcopa back to IR Sinemet and get her back on her normal schedule. I am extremely hesitant to adjust PD meds in the inpatient setting when the patient is not at baseline. I am hopeful that her Parkinson's symptoms will improve on meds, now that her UTI is resolved and her calcium is better. 2. I have d/c'd her Trileptal as the was stopped several days prior to her admission. While it may not be playing a role, I think it is better to simply her regimen in the setting of acute decompensation. She has a long history of psychiatric illness and will follow up with her treating psychiatrist regarding additional medication changes. Her Trileptal was stopped by her psychiatrist so he is aware of the change. 3. No evidence of stroke or bleed. 4. PT/OT to mobilize which will likely help her mental status as well. She has been bed-ridden for several days 5. Follow up with outpatient psychiatry for further treatment options. Underlying depression is an ongoing issue complicating her clinical picture 6. Hypercalcemia is improved. She sees Dr. Mark and I recommend close follow up I am hopeful that she will improve over the next 24 hours as we are able to hydrate and normalize her medication regimen. Will continue to follow. She will need close follow up with Dr. Sharp as well.
[2018-10-30] MEDS ORDERED: Spiriva Inhaler DEVICE* 1 EACH DEVICE INH ONE (09:00)
[2018-10-30] MEDS: Sertraline* 100 MG TAB PO SCH (09:20)
[2018-10-30] MEDS: Aspirin EC TAB* 81 MG TAB.EC PO SCH (09:22)
[2018-10-30] MEDS: CMCS:Lithium Carbonate ER (NF) 300 MG TAB.ER PO SCH ×2 (09:22→21:14)
[2018-10-30] MEDS: Propranolol TAB* 10 MG PO SCH (09:22)
[2018-10-30] MEDS: lamoTRIgine TAB(*) 100 MG PO SCH ×2 (09:23→21:15)
[2018-10-30] MEDS: Carbidopa/Levodop 25/100 MG TAB(*) PO SCH ×3 (09:23→21:14)
[2018-10-30] MEDS: Pantoprazole TAB * 40 MG TAB PO SCH (09:23)
[2018-10-30] MEDS: Cyanocobalamin TAB* 500 MCG PO SCH ×2 (09:24→21:15)
--- NOTE | 2018-10-30 10:33 | PN ---
Subjective Date of Service: 10/30/18 Interval History: HOSPITALIST PROGRESS NOTE Patient seen and examined at bedside. Care reviewed and d/w Leonard Willis RN. She looks improved today. More awake, bradykinesia is less pronounced, but PO intake is still poor. Had only half a bowl of oatmeal for breakfast. Family History: Unchanged from Admission Social History: Unchanged from Admission Past Medical History: Unchanged from Admission Objective Active Medications: Aspirin (Aspirin Ec Tab*) 81 mg PO DAILY [facility] Last Admin: 10/30/18 09:22 Dose: 81 mg Carbidopa/Levodopa (Sinemet 25/100 Tab(*)) 3 tab PO TID [facility] Last Admin: 10/30/18 09:23 Dose: 3 tab Clonazepam (Klonopin Tab(*)) 0.5 mg PO TID PRN PRN Reason: ANXIETY Cyanocobalamin (Vitamin B12 Tab*) 500 mcg PO BID [facility] Last Admin: 10/30/18 09:24 Dose: 500 mcg Heparin Sodium (Porcine) (Heparin Vial(*)) 5,000 units SUBCUT Q8HR [facility] Last Admin: 10/30/18 05:23 Dose: 5,000 units Sodium Chloride (Ns 0.9% 1000 Ml) 1,000 mls @ 100 mls/hr IV PER RATE [facility] Last Admin: 10/30/18 02:49 Dose: 100 mls/hr Lamotrigine (Lamictal Tab(*)) 100 mg PO BID [facility] Last Admin: 10/30/18 09:23 Dose: 100 mg [place] Carbonate ([place] Carbonate Er (Nf)) 300 mg PO BID [facility]; Protocol Last Admin: 10/30/18 09:22 Dose: 300 mg Mirtazapine (Remeron Tab*) 15 mg PO BEDTIME [facility] Last Admin: 10/29/18 21:32 Dose: 15 mg Mometasone Furoate/Formoterol Fumar (Dulera 200/5 Mdi*) 2 puff INH BID [facility]; Protocol Last Admin: 10/30/18 07:37 Dose: 2 puff Ondansetron HCl (Zofran Tab*) 4 mg PO Q6H PRN PRN Reason: NAUSEA/VOMITING Pantoprazole Sodium (Protonix Tab*) 40 mg PO QAM [facility] Last Admin: 10/30/18 09:23 Dose: 40 mg Polyethylene Glycol/Electrolytes (Miralax*) 17 gm PO DAILY PRN PRN Reason: CONSTIPATION Last Admin: 10/30/18 06:36 Dose: 17 gm Propranolol HCl (Inderal Tab*) 10 mg PO QAM [facility] Last Admin: 10/30/18 09:22 Dose: 10 mg Senna (Senokot Tab*) 1 tab PO DAILY PRN PRN Reason: CONSTIPATION Last Admin: 10/30/18 06:36 Dose: 1 tab Sertraline HCl (Zoloft*) 150 mg PO QAM [facility] Last Admin: 10/30/18 09:20 Dose: 150 mg Tamsulosin HCl (Flomax Cap*) 0.4 mg PO BEDTIME [facility] Last Admin: 10/29/18 21:33 Dose: 0.4 mg Tiotropium [place] (Spiriva Cap.Inh*) 1 cap INH DAILY [facility] Last Admin: 10/30/18 07:37 Dose: 1 cap Vital Signs - 8 hr 10/30/18 10/30/18 03:17 07:43 Temperature 97.8 F Pulse Rate 65 67 Respiratory 16 16 Rate Blood Pressure 134/76 (mmHg) O2 Sat by Pulse 100 95 Oximetry Oxygen Devices in Use Now: Nasal Cannula Appearance: Elderly frail lady lying in bed in NAD Eyes: No Scleral Icterus Ears/Nose/Mouth/Throat: Mucous Membranes Moist Neck: Trachea Midline Respiratory: Symmetrical Chest Expansion and Respiratory Effort, Clear to Auscultation - diminished Cardiovascular: RRR - Normal S1 and S2 Abdominal: NL Sounds; No Tenderness; No Distention Neurological: Alert and Oriented x 3, - - Bradykinesia is much improved today. Slight facial asymmetry with left side lower than right, but no weakness. Result Diagrams: 10/30/18 05:39 10/30/18 05:39 Assess/Plan/Problems-Billing Assessment: Ms. 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 - Patient Problems (1) Parkinson disease Comment: - Suspect most of her symptoms on admission are secondary to decompensated Parkinson disease - the process probably started of her UTI end of September and progressed with poor PO intake, dehydration, worsening hypercalcemia , inability to take PO Sinemet, and PD decompensation. - Continue Sinement as schedulled. Will benefit of prescription for Sinemet ODT on discharge in case she has difficulty swallowing again. - MRI brain was negative for stroke. - PT/OT evaluation requested. (2) Dehydration Comment: - Resolved - will d/c IVF for now and see if she can keep up with PO intake. (3) Hyperparathyroidism due to lithium therapy Comment: - Mild, but exacerbated in the setting of dehydration. - Seen by Dr Mark as outpatient. - Calcium down to 10.7. 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 - Continue [place], Lamotrigine; Oxcarbazapine had already be discontinued as outpatient. (5) Neurogenic bladder Comment: - Continue Flomax. (6) DVT prophylaxis Comment: - SQ heparin. (7) Full code status
[2018-10-30 16:04] LABS: Lamotrigine 2.2 mcg/mL (2.5 - 15.0)
[2018-10-30] MEDS: Tamsulosin CAP* 0.4 MG PO SCH (21:15)
[2018-10-30] MEDS: Mirtazapine TAB* 15 MG PO SCH (21:15)
[2018-10-31] MEDS: NS 0.9% 1000 ML** 1,000 ML IV SCH (01:28)
[2018-10-31] MEDS: Heparin VIAL(*) 5000 UNITS/ML VIAL (FIVE THOUSAND) SUBCUT SCH (05:36)
[2018-10-31] MEDS: Mometasone/Formoter 200/5 MDI INH SCH (07:54)
[2018-10-31] MEDS: Tiotropium CAP.INH* CAP.INH/18 MCG (USE ORDER SET !) INH SCH (07:54)
[2018-10-31 07:55] VITALS: BP 114/59
--- NOTE | 2018-10-31 08:03 | PN ---
Subjective Date of Service: 10/31/18 Length of Stay: 2 Days Interval History: Overnight, no new issues. Last BM was 4 days ago, now on Miralax. She typically goes 3-4 days between. She is more awake and alert. She is following more commands although remains somewhat confused. She was able to get OOB to chair yesterday, PT is working with her. Remains stiff which seems to respond to C/L. Her is asking to adjust her C/L regimen to her home schedule. Tele: PVCs Family History: Unchanged from Admission Social History: Unchanged from Admission Past Medical History: Unchanged from Admission Objective Active Medications: Aspirin (Aspirin Ec Tab*) 81 mg PO DAILY [facility] Last Admin: 10/30/18 09:22 Dose: 81 mg Carbidopa/Levodopa (Sinemet 25/100 Tab(*)) 3 tab PO TID [facility] Clonazepam (Klonopin Tab(*)) 0.5 mg PO TID PRN PRN Reason: ANXIETY Cyanocobalamin (Vitamin B12 Tab*) 500 mcg PO BID [facility] Last Admin: 10/30/18 21:15 Dose: 500 mcg Heparin Sodium (Porcine) (Heparin Vial(*)) 5,000 units SUBCUT Q8HR [facility] Last Admin: 10/31/18 05:36 Dose: 5,000 units Sodium Chloride (Ns 0.9% 1000 Ml) 1,000 mls @ 100 mls/hr IV PER RATE [facility] Last Admin: 10/31/18 01:28 Dose: 100 mls/hr Lamotrigine (Lamictal Tab(*)) 100 mg PO BID [facility] Last Admin: 10/30/18 21:15 Dose: 100 mg [place] Carbonate ([place] Carbonate Er (Nf)) 300 mg PO BID [facility]; Protocol Last Admin: 10/30/18 21:14 Dose: 300 mg Mirtazapine (Remeron Tab*) 15 mg PO BEDTIME [facility] Last Admin: 10/30/18 21:15 Dose: 15 mg Mometasone Furoate/Formoterol Fumar (Dulera 200/5 Mdi*) 2 puff INH BID [facility]; Protocol Last Admin: 10/31/18 07:54 Dose: 2 puff Ondansetron HCl (Zofran Tab*) 4 mg PO Q6H PRN PRN Reason: NAUSEA/VOMITING Pantoprazole Sodium (Protonix Tab*) 40 mg PO QAM [facility] Last Admin: 10/30/18 09:23 Dose: 40 mg Polyethylene Glycol/Electrolytes (Miralax*) 17 gm PO DAILY PRN PRN Reason: CONSTIPATION Last Admin: 10/30/18 06:36 Dose: 17 gm Propranolol HCl (Inderal Tab*) 10 mg PO QAM [facility] Last Admin: 10/30/18 09:22 Dose: 10 mg Senna (Senokot Tab*) 1 tab PO DAILY PRN PRN Reason: CONSTIPATION Last Admin: 10/30/18 06:36 Dose: 1 tab Sertraline HCl (Zoloft*) 150 mg PO QAM [facility] Last Admin: 10/30/18 09:20 Dose: 150 mg Tamsulosin HCl (Flomax Cap*) 0.4 mg PO BEDTIME [facility] Last Admin: 10/30/18 21:15 Dose: 0.4 mg Tiotropium [place] (Spiriva Cap.Inh*) 1 cap INH DAILY [facility] Last Admin: 10/31/18 07:54 Dose: 1 cap Vital Signs 10/30/18 10/30/18 10/30/18 08:22 11:49 15:21 Temperature 97.9 F 97.2 F 97.6 F Pulse Rate 66 60 66 Respiratory 16 16 20 Rate Blood Pressure 110/58 115/77 124/67 (mmHg) O2 Sat by Pulse 95 97 98 Oximetry 10/30/18 10/30/18 10/30/18 19:15 20:00 21:42 Temperature 97.6 F Pulse Rate 67 65 Respiratory 20 16 15 Rate Blood Pressure 121/64 (mmHg) O2 Sat by Pulse 97 95 Oximetry 10/30/18 10/31/18 10/31/18 23:15 03:15 07:35 Temperature 97.7 F 97.4 F 98.5 F Pulse Rate 65 62 66 Respiratory 18 16 16 Rate Blood Pressure 122/66 132/66 114/59 (mmHg) O2 Sat by Pulse 97 98 98 Oximetry 10/31/18 07:55 Temperature Pulse Rate 86 Respiratory 18 Rate Blood Pressure (mmHg) O2 Sat by Pulse 91 Oximetry Intake and Output Last 24 Hours 10/29/18 10/30/18 10/31/18 11/01/18 06:59 06:59 06:59 06:59 Intake Total 0545 0170 Output Total 2203 0494 Balance 847 675 Weight 128 lb Intake: IV Fluids 2272 1730 ABX - PIPERACILLIN 30 NS (0.9%) 263 IVPB 100 ABX - PIPERACILLIN 100 Oral 0 720 Output: [place] 1525 1775 Other: Estimated Void Medium Oxygen Devices in Use Now: Nasal Cannula Neurology Exam: General: Well-developed, thin female in no acute distress. Awake and smiling more this am HEENT: Normocephelic/atraumatic, sclera anicteric, mucous membranes moist Chest: Clear to auscultation bilaterally Cardiovascular: Regular rate and rhythm without murmurs, rubs, gallops Abdomen: Soft, non-tender/non-distended Extremities: No clubbing, cyanosis, or edema Neurological Findings: OFF Meds. Awake, more alert, oriented to person, smiling, more talkative. Decreased blink and hypomimia Speech: fluent without dysarthria, marked hypophonia persists Cranial Nerve: PERRL, EOM intact, no nystagmus, no diplopia, facial sensation intact, mild weakness of the left lower face (improved), hearing intact, palate raises symmetrically, tongue midline Motor: Generally symmetric, increased tone throughout with mild cogwheeling right greater than left arms. Remains generally weak 4/5, slightly worse in LUE and LLE. Mild drift in bilateral upper extremities Finger to nose intact, bradykinetic, mild resting tremor of the R>L upper extremity, difficulty with finger tap right > left Sensation: intact to LT throughout Result Diagrams: 10/30/18 05:39 10/30/18 05:39 Additional Lab and Data: Lamictal 2.2 Microbiology and Other Data: Microbiology 10/29/18 10:38 Aerobic Blood Culture - Preliminary Blood Venous No Growth Day 1 Anaerobic Blood Culture - Preliminary No Growth Day 1 10/29/18 10:22 Aerobic Blood Culture - Preliminary Blood Venous No Growth Day 1 Anaerobic Blood Culture - Preliminary No Growth Day 1 Assessment/Plan Assessment: Ms. Nelson is a 73-year-old female with a very complicated medical history who presents to the hospital with altered mental status, worsening bradykinesia , dysphagia, nothing p.o. for several days. She has not been able to take her carbidopa/levodopa since 3:30 pm the day prior to admission. There was some concern about left facial droop and left sided weakness. She does have a significant psychiatric history and is on lithium, Trileptal and Lamictal, has underlying severe depression. Most recently, she was started on Trileptal about a week prior but her called her treating psychiatrist who had stopped the Trileptal several days prior to admission. She has been off of that for several days prior to admission. Besides the multiple antibiotics, she has had no other major medication changes. She also has a history of elevated parathyroid hormone with hypercalcemia and was admitted with a calcium of 12. I continue to suspect a more acute decompensation of her PD due to multiple factors including recent infection with multiple medication additions, +/- addition of Trileptal although this was stopped several days prior to acute worsening, decreased PO with inability to take her medications. In addition, her hypercalcemia is likely confusing an already difficult situation. 1. Now back on C/L 25/100 3 pills TID and seems to be better although she is currently off and more bradykinetic. She remains very weak and deconditioned, has been bedridden for days. I do think she is an excellent candidate for acute inpatient rehab. She has PT/OT and ST needs, she has very good home support and will have a good d/c plan. She and her are agreeable to PM& R and hopefully she can go today. Her acute medical issues have been stabilized. --Continue Miralax for constipation. Chronic issue 2. Continue current psychiatric medications. She will need to follow up with psychiatry after d/c. She follows regularly with a psychiatrist and has a long history of mental health issues. 3. No evidence of stroke or bleed. Unclear etiology of her left sided weakness but this may be effort dependent to some degree. No neck pain or radicular typ symptoms. 4. Hyperparathyroidism: Hypercalcemia is improved. She sees Dr. Mark and I recommend close follow up From a neurologic perspective, she is improving and I expect continued improvement with aggressive rehab. I would avoid changing her PD medications while inpatient as this is something generally best done when the patient has established a baseline. She can follow up with Dr. Sharp after discharge. I did update Dr. Sharp on her hospitalization.
[2018-10-31] MEDS ORDERED: Carbidopa/Levodop 25/100 MG TAB(*) PO SCH (08:30)
[2018-10-31] MEDS: lamoTRIgine TAB(*) 100 MG PO SCH (08:52)
[2018-10-31] MEDS: Aspirin EC TAB* 81 MG TAB.EC PO SCH (08:52)
[2018-10-31] MEDS: Cyanocobalamin TAB* 500 MCG PO SCH (08:53)
[2018-10-31] MEDS: Pantoprazole TAB * 40 MG TAB PO SCH (08:53)
[2018-10-31] MEDS: CMCS:Lithium Carbonate ER (NF) 300 MG TAB.ER PO SCH (08:54)
[2018-10-31] MEDS: Propranolol TAB* 10 MG PO SCH (09:02)
[2018-10-31] MEDS: Sertraline* 100 MG TAB PO SCH (09:04)
--- NOTE | 2018-10-31 11:15 | DS ---
CC: Dr. Angela Leal; Dr. Dolan; Dr. Mark; Dr. Sharp; Dr. Morataya * DISCHARGE SUMMARY: DATE OF ADMISSION: 10/29/18 DATE OF DISCHARGE: To physiotherapy unit, 10/31/18. PRIMARY CARE PROVIDER: Dr. Angela Leal. NEUROLOGY: Dr. Dolan. DISPOSITION AT DISCHARGE: To [facility] [place] Physiotherapy Unit. CONDITION ON DISCHARGE: Stable. DISCHARGE DIAGNOSES: 1. Parkinson's exacerbation. 2. Dehydration. 3. Worsening hypercalcemia in patient with history of hyperparathyroidism. SECONDARY DIAGNOSES: 1. History of Parkinson's. 2. History of intermittent hypoxemia, on oxygen at 2 L at home as needed. 3. History of neurogenic bladder with urethral stricture, on Flomax. 4. Mild dementia. 5. Chronic obstructive pulmonary disease. 6. Depression. 7. History of right total knee replacement. 8. Oophorectomy in the past. 9. History of right hand surgery in the past. 10. History of lithium-induced hyperparathyroidism and subsequent hypercalcemia under the care of Dr. Mark. MEDICATIONS AT DISCHARGE: Include: 1. Aspirin 81 mg daily. 2. Symbicort 160 mg/4.5, 2 puffs inhalation b.i.d. 3. Clonazepam 0.5 mg 3 times a day p.r.n. 4. Vitamin B12 500 mcg b.i.d. 5. Colace 50 mg b.i.d. 6. Ell[place] 1 tablet daily. 7. Probiotic 1 capsule daily. 8. Lamotrigine 100 mg b.i.d. 9. [place] carbonate 300 mg b.i.d. 10. Remeron 15 mg at bedtime. 11. Omeprazole 40 mg daily. 12. Zofran 4 mg every 6 hours p.r.n. 13. Propranolol 10 mg daily. 14. Zoloft 150 mg daily. 15. Spiriva 1 inhalation daily. 16. Carbidopa/levodopa 25/100, 3 tablets at 8:30 a.m., 1300 and 1830 p.m. 17. Flomax 0.4 mg at bedtime. LABORATORY DATA AND STUDIES PERFORMED DURING THE HOSPITAL STAY: Included: On , white blood cell count of 4.5, hemoglobin 12.7, hematocrit 38, and platelets of 269,000. Sodium was 139, potassium 3.8, chloride was 109, carbon dioxide 26, BUN 13, creatinine 0.68. Calcium was noted to be 10.7 on 10/30/18. Oxcarbazepine level was pending at the time of dictation. Lamotrigine was 2.2 on 10/29/18 and lithium level was 0.6 on 10/29/18. The patient's microbiology study showed negative growth for blood cultures, negative growth for urine cultures. Brain MRI noted on 10/29/18, impression: "Central and cortical atrophy with no restriction of diffusion is noted. No specific right ventricular white matter signal abnormality. No significant change comparing with 07/08/18 study." Portable chest x-ray on admission, impression: "Linear atelectasis of the right lung base." Brain CT obtained on 10/29/18, impression: "No acute intracranial pathology." CONSULTATION DURING THE HOSPITAL STAY: Included Dr. Dolan from Neurology. HOSPITALIZATION COURSE: Cyndi Nelson is a 73-year-old female with history of Parkinson's and depression, who presented to the hospital complaining of generalized weakness, questionable facial droop and left-sided weakness in addition to worsening dystonia with Parkinson's. She was recently treated for UTI several days ago and her urinalysis obtained at admission was basically unremarkable. She was seen by Dr. Dolan from Neurology, who ordered an MRI to evaluate for further possibility of stroke. The MRI was grossly unremarkable apart from chronic changes. The patient continued to have mild pain on the left side during the hospital stay but reported facial droop at admission resolved. The patient was noted to have generalized weakness and physical therapy, occupational therapy deemed patient to be a good candidate to our physiotherapy unit for further physical therapy. Please note that the patient had been on Trileptal that was started and then stopped by her psychiatrist and will not be restarted at discharge. The remaining medications are basically unchanged from admission. The patient was noted to be dehydrated and had marked hypercalcemia with calcium level of 12.1 on admission. It was noted that the patient had history of hypercalcemia due to hyperparathyroidism under the care of Dr. Mark from Endocrinology. By the time of 10/30/18, the patient's calcium level has improved to 10.7. By the time of discharge, the patient required 2 L of oxygen nasal cannula, which she had been using as needed at home. I suspect this is due to atelectasis and intravenous fluid hydration. She has had no respiratory symptoms. She is going to be discharged from the physiotherapy unit on oxygen to be weaned off as tolerated. DISPOSITION AT DISCHARGE: Physiotherapy Unit at [facility] [place]. CONDITION ON DISCHARGE: Stable. PHYSICAL EXAMINATION AT THE TIME OF DISCHARGE: Blood pressure of 114/59, heart rate of 56 and regular, respiratory rate 16, oxygen saturation 98% on 2 L oxygen nasal cannula, temperature is 98.5. General: The patient is a very pleasant 73- year-old female who is in no acute distress. Alert, awake, and oriented x3. HEENT: Head atraumatic, normocephalic. Eyes: Pupils are equal, reactive to light and accommodation. Oropharynx clear. Mucosa moist. Neck: Supple. No JVD. No bruit bilaterally. Cardiovascular: Regular rate and rhythm. No murmur. Respiratory: Clear to auscultation bilaterally. Abdomen: Soft, nontender. Bowel sounds are present in all 4 quadrants. Extremities: There is no edema. Pulses are +2 bilaterally. There is no clubbing or cyanosis. Neuro Evaluation: Cogwheel rigidity noted bilateral upper extremities. The patient has generalized weakness. She is able to raise her bilateral lower extremities by approximately 30 degrees for a few seconds, but she is not able to do it for a full duration of 10 seconds. It appears that she is weaker on the left side, mildly so. Her speech is clear. Cranial nerves II through XII grossly intact. On evaluation of the skin, no ecchymotic areas or rashes noted. Psychiatric Evaluation: The patient is alert and oriented x3 with no evidence of anxiety or depression. Please note that this is a short summary of the patient's hospital stay. Please refer to further medical records for details. TIME SPENT: Approximately 40 minutes were spent on the patient's discharge. [id number]/CPS #: [id number] [email or web address]
== END 2018-10-31 10:30 ==
LOC: ED 09:37 → MEDTELE 13:47
PROVIDERS: ADMIT Internal Medicine; ATTEND Internal Medicine
DX: G20 Parkinson's disease (principal); E86.0 Dehydration; E21.3 Hyperparathyroidism, unspecified; R09.02 Hypoxemia; N31.8 Other neuromuscular dysfunction of bladder; F03.90 Unspecified dementia, unspecified severity, without behavioral disturbance, psychotic disturbance, mood disturbance, and anxiety; J44.9 Chronic obstructive pulmonary disease, unspecified; F32.9 Major depressive disorder, single episode, unspecified; Z96.651 Presence of right artificial knee joint; Z90.721 Acquired absence of ovaries, unilateral; Z79.82 Long term (current) use of aspirin; Z79.899 Other long term (current) drug therapy
CPT/HCPCS: 36415; 70450; 70551; 71045; 80048; 80053; 80175; 80178; 80183; 80329; 81003; 82140; 82330; 82550; 83605; 83735; 83874; 84443; 84484; 85025; 85610; 87040; 93005; 94640; 96360; 96361; 96372; 99285; A9270-GY; G0378; G0480; G8978-GP-CM; G8979-GP-CJ; J1644

== ENCOUNTER 2018-10-31 08:44 | Inpatient (IN) | payer MEDICARE ==
[2018-10-31] MEDS ORDERED: Senna TAB 8.6 mg* TAB PO PRN (11:30)
[2018-10-31] MEDS ORDERED: Mirtazapine TAB* 15 MG PO PRN (11:46)
[2018-10-31] MEDS ORDERED: Polyethylene Glycol 3350* 17 GM PACKET PO PRN (11:49)
[2018-10-31] MEDS: Heparin VIAL(*) 5000 UNITS/ML VIAL (FIVE THOUSAND) SUBCUT SCH ×2 (13:05→22:26)
[2018-10-31] MEDS: Carbidopa/Levodop 25/100 MG TAB(*) PO SCH ×2 (13:05→18:31)
[2018-10-31] MEDS: Ondansetron ODT TAB* 4 MG PO PRN (17:51)
[2018-10-31] MEDS: Lithium Carbonate TAB* 300 MG PO SCH ×2 (21:02→23:30)
[2018-10-31] MEDS: lamoTRIgine TAB(*) 100 MG PO SCH ×2 (21:04→23:30)
[2018-10-31] MEDS: Tamsulosin CAP* 0.4 MG PO SCH ×2 (21:05→23:35)
[2018-10-31] MEDS ORDERED: Ondansetron ODT TAB* 4 MG SL ONE (21:40)
--- NOTE | 2018-10-31 21:49 | HP ---
ADMISSION HISTORY AND PHYSICAL: DATE OF ADMISSION: 10/31/18 REASON FOR ADMISSION: Parkinson's disease. HISTORY OF PRESENT ILLNESS: Cyndi Nelson is a 73-year-old female. She has a medical history significant for Parkinson's disease. She normally follows with Dr. Ysabel Sharp. She also has a history of COPD as well as having bipolar disease. The patient recently has had difficulties with urinary tract infections. She does see Dr. Abbott for a urethral stricture and she has had some difficulty voiding. She does take Flomax at bedtime. About 3 weeks ago, the patient began to have some lethargy and weakness. She came to the emergency room 10/16/18 and was diagnosed with a urinary tract infection and discharged home with Cipro. She became weak and lethargic again and returned to the emergency room 10/21/18. She was sent back home, but continued to decline and came back to the emergency room 10/29/18. Before coming in to the hospital, however the patient became weaker and weaker. She was unable to take her pills including her Sinemet. As a result of this, she became quite stiff and had difficulty with transport. The patient was also requiring oxygen at home, which she normally does not do. The patient was brought to the emergency room and admitted to the telemetry floor. It was felt that she had decompensation of her Parkinson's disease from not taking her Sinemet. She was seen in consultation by Dr. Paul Dolan. It was felt that the patient had a decline because of her inability to take her Sinemet for several doses. The patient was put on Sinemet oral dissolving tablets, which helped. She remains somewhat confused, but was able to follow commands and beginning to work with Physical Therapy. She was felt to have physical therapy and occupational therapy needs. She is now being admitted for inpatient rehab so that she might return to independent living. PAST MEDICAL HISTORY: Significant for the aforementioned Parkinson's disease, bipolar disease, she had a urethral stricture and is on Flomax, she has COPD, and has had frequent urinary tract infections. She had a right total knee replacement as well and she has lithium-induced hyperparathyroidism. MEDICATIONS: Current medications include: 1. Aspirin daily. 2. She is on Sinemet 3 tablets 3 times a day. 3. She is on Klonopin for anxiety. 4. Spiriva. 5. Lamictal. 6. [place]. 7. Remeron. 8. Dulera inhaler. 9. Protonix. 10. MiraLAX. 11. Zoloft. 12. Flomax. ALLERGIES: To AMOXICILLIN, CLARITHROMYCIN, and SULFA. SOCIAL HISTORY: She is a nonsmoker, but a former smoker. She does not drink. She lives with her in a 2-story house. She generally goes up and down once a day. Full baths are upstairs with half baths downstairs. There is a study downstairs that could be used as a bedroom. REVIEW OF SYSTEMS: The patient reports no current shortness of breath or chest pain. PHYSICAL EXAMINATION VITAL SIGNS: The patient's temperature is 97.7, blood pressure is 113/70, pulse is 57, respirations 20. HEENT: Extraocular movements are intact. She does have Parkinson's facies. She is wearing oxygen 2 L via nasal cannula. NECK: Supple. LUNGS: Decreased breath sounds, but clear to auscultation. HEART: Sounds are regular. S1 and S2 are audible. ABDOMEN: Soft and nontender. EXTREMITIES: Have slightly increased tone. Peripheral pulses were intact. NEUROLOGIC: She is awake, alert, oriented to self. She could follow commands. Move all 4 extremities. FUNCTIONAL: She transfers with minimal amount of assistance. ASSESSMENT: 1. Parkinson's disease. 2. Chronic obstructive pulmonary disease. 3. Urinary tract infection with mental status changes. PLAN: Integrate her into a comprehensive and therapeutic rehab program with the following goals: 1. Physical Therapy will work with the patient. They are going to work on functional transfer training, ambulation training with a walker. 2. Occupational Therapy will see the patient, work on her activities of daily living including toileting and toilet transfers. 3. Heparin for DVT prophylaxis. 4. Continue Sinemet 3 tablets 3 times a day for her Parkinson's disease. 5. Continue lithium, Lamictal, Remeron, and Zoloft for her bipolar disease. 6. Continue Spiriva for COPD as well as her Dulera inhaler. 7. Her bowels will be regulated. 8. administrative services manager will be closely involved to make sure that any services and equipment the patient requires are in place prior to discharge. 9. Family training as appropriate. 10. Home with appropriate services. ESTIMATED LENGTH OF STAY: 10 days. [id number]/CPS #: [id number] NEMO
[2018-10-31] MEDS: Mometasone/Formoter 200/5 MDI INH SCH (22:26)
[2018-10-31] MEDS: Cyanocobalamin TAB* 500 MCG PO SCH (23:34)
[2018-10-31] MEDS: Docusate CAP* 100 MG PO SCH (23:34)
[2018-11-01] MEDS: Ondansetron ODT TAB* 4 MG PO PRN ×4 (03:14→18:42)
[2018-11-01 04:58] LABS: ABS Eosinophils 0.3 10^3/ul (0-0.6); ABS Lymphocytes 1.5 10^3/ul (1.0-4.8); ABS Monocytes 0.3 10^3/ul (0-0.8); ABS Neutrophils 3.5 10^3/ul (1.5-7.7); Eosinophil % 4.6 %; Hematocrit 37 % (35-47); Hemoglobin 12.5 g/dL (12.0-16.0); Mean Corpuscular HGB Conc 34 g/dL (31-36); Mean Corpuscular Hemoglobin 32 pg (27-31); Mean Corpuscular Volume 97 fL (80-97); Mean Platelet Volume 8.7 fL (7.4-10.4); Platelet Count 316 10^3/uL (150-450); Red Blood Count 3.86 10^6 /uL (3.70-4.87); Red Cell Distribution Width 13 % (10-15); White Blood Count 5.6 10^3/uL (3.5-10.8)
[2018-11-01 05:17] LABS: ALT < 3 U/L (7-52); AST 7 U/L (13-39); Albumin 3.5 g/dL (3.2-5.2); Albumin/Globulin Ratio 1.6 (1-3); Alkaline Phosphatase 103 U/L (34-104); Anion Gap 4 mmol/L (2-11); BUN/Creatinine Ratio 14.8 (8-20); Blood Urea Nitrogen 9 mg/dL (6-24); CO2 Carbon Dioxide 26 mmol/L (22-32); Calcium 10.9 mg/dL (8.6-10.3); Chloride 111 mmol/L (101-111); EGFR Non-African American 96.7 (>60); Globulin 2.2 g/dL (2-4); Glucose 108 mg/dL (70-100); Potassium 3.6 mmol/L (3.5-5.0); Sodium 141 mmol/L (135-145); Total Protein 5.7 g/dL (6.4-8.9)
[2018-11-01] MEDS: Heparin VIAL(*) 5000 UNITS/ML VIAL (FIVE THOUSAND) SUBCUT SCH ×3 (05:36→21:51)
[2018-11-01] MEDS: Mometasone/Formoter 200/5 MDI INH SCH ×2 (08:20→20:34)
[2018-11-01] MEDS: Tiotropium CAP.INH* CAP.INH/18 MCG (USE ORDER SET !) INH SCH (08:20)
[2018-11-01] MEDS: Carbidopa/Levodop 25/100 MG TAB(*) PO SCH ×3 (08:33→18:35)
[2018-11-01] MEDS: Lithium Carbonate TAB* 300 MG PO SCH ×2 (08:46→23:20)
[2018-11-01] MEDS ORDERED: Spiriva Inhaler DEVICE* 1 EACH DEVICE INH ONE (09:00)
[2018-11-01] MEDS: Propranolol TAB* 10 MG PO SCH (09:57)
[2018-11-01] MEDS: Sertraline* 100 MG TAB PO SCH (09:57)
[2018-11-01] MEDS: lamoTRIgine TAB(*) 100 MG PO SCH ×2 (09:57→21:22)
[2018-11-01] MEDS: Aspirin EC TAB* 81 MG TAB.EC PO SCH (09:57)
[2018-11-01] MEDS: Cyanocobalamin TAB* 500 MCG PO SCH ×2 (09:57→21:52)
[2018-11-01] MEDS: Docusate CAP* 100 MG PO SCH ×2 (09:57→21:52)
[2018-11-01] MEDS: Pantoprazole TAB * 40 MG TAB PO SCH (09:57)
--- NOTE | 2018-11-01 13:07 | PMRUTEAM ---
PMRU: Team Meeting Current Status: Nursing: Current Status Skin Deviations [Coccyx] Other Skin Deviation Description [ purplish areas - blanchable Coccyx] Physical Therapy: Current Status Bed Mobility Assistance Min Assist Transfer Mobility Assistance Min Assist,2 or More Person Assist Transfer/Bed Mobility Rolling Walker Recommended Devices Ambulation Assistance Min Assist,2 or More Person Assist Ambulation Assistive Devices Rolling Walker Number of Feet Patient 75 Ambulated Stairs Assistance Not Tested Stairs Recommended Devices Two Rails Number of Stairs flight Occupational Therapy: Current Status Upper Body Dressing Min Assist Lower Body Dressing Max Asst,2 Person Assist Bathing Min Assist,2 Person Assist Toileting Total Assist,2 Person Assist Toilet Transfer Mod Assist Eating Supervision Rec Therapy: Current Status Summary of Assessment and Pt. had just completed physical therapy but was Clinical Impression open to conversation. Pt. was quiet and soft spoken but answered all questions appropriately. Pt. states she enjoys her life. Pt. was interested in pet therapy and continued leisure visits while on the unit. Treatment Goals Pt. will engage in leisure activities while on the unit as tolerated. Treatment Plan Provide recreation therapy and encourage involvement. SPEECH THERAPY: Moderate cognitive impairment MOCA 13/30, swallow functional, speech is clear Goals: Physical Therapy: Initial Goals Bed Mobility Assistance Supervision Transfer Mobility Assistance Supervision Transfer/Bed Mobility Rolling Walker Recommended Devices Ambulation Supervision Ambulation Recommended Devices Rolling Walker Ambulation Distance 150 Stairs Assistance Supervision Stair Recommended Devices One Rail Number of Stairs flight Home Exercise Program Supervision Assistance Physical Therapy: Updated Goals Transfer/Bed Mobility Rolling Walker Recommended Devices Occupational Therapy: Initial Goals Goals to be Completed in (Days 14-21 days ) Upper Body Bathing Routine Supervision/Set Up Lower Body Bathing Routine Minimal Contact Assist Upper Body Dressing Routine Minimal Contact Assist Lower Body Dressing Routine Minimal Contact Assist Toilet Hygeine and Clothing Minimal Contact Assist Management Routine Toilet Transfer Routine Supervision/Set Up Tub Transfer Routine Supervision/Set Up,Minimal Contact Assist Functional Transfers for ADL Supervision/Set Up Grooming Routine Supervision/Set Up Feeding Routine Supervision/Set Up SPEECH THERAPY GOALS: Improve memory for functional living skills with moderate cuing Care Plan: Care Plan ADL's - Improve/Maintain Start: 10/31/18 16:26 Freq: DAILY Status: Active Target: Protocol: Activity Type Activity Date Activity User E-Sign Co-Sign Detail Recorded Client Recorded Date Recorded By Document 10/31/18 16:26 [id number] 10/31/18 16:27 [id number] 10/31/18 16:26 PMRU Outcome: ADL's/ADL Transfers Orders/Interventions Occupational Therapy Evaluation & Treatment Communication Tool in Patient Room Device Yes Address Deficits Secondary To: Parkinson's exacerbation Patient to receive OT 5x/wk for 60-120 Therex min/day Self Care Management Group Therapy UE/LE ADL's with Assist Yes: S-Sánchez ADL Transfers with Assist Yes: S Toileting: Transfers,Clothing Management Yes: S-Sánchez ,Hygeine w/Assist Light Kitchen/Laundry w/Assist No Progression Toward Outcome/Goals Progressing Outcome/Goals Met Pt is a 73 yo female who was admitted to the hospital for weakness. Pt was diagnosed with Parkinson' s exacerbation and AMS. At baseline, pt recieved assistance with ADLs and IADLs from her home health care coordinator and . braided band assembler reported that this past week leading up to admission has been much harder for pt and she needs much more assist. Pt has limited functional independence secondary to confusion, decreased strength, decreased balance, and decreased endurance. Pt would benefit from skilled OT services to maximize independence and safety. Communication-Improve/Maintain Start: 10/31/18 12:00 Freq: DAILY Status: Active Target: Protocol: Activity Type Activity Date Activity User E-Sign Co-Sign Detail Recorded Client Recorded Date Recorded By Document 11/01/18 00:25 [id number] [email or web address] 11/01/18 00:26 [id number] 11/01/18 00:25 PMRU Outcome: Communication/Cognitive Status Outcome/Goals Makes Needs Known Effectively Progression Toward Outcomes/Goals Progressing Outcome/Goals Met Comment rooming in. And is also a care population health coach DVT Prophylaxis- Improve/Maintain Start: 10/31/18 12:00 Freq: QSHIFT Status: Active Target: Protocol: Activity Type Activity Date Activity User E-Sign Co-Sign Detail Recorded Client Recorded Date Recorded By Document 11/01/18 00:26 [id number] [id number] 11/01/18 00:27 [id number] 11/01/18 00:26 PMRU Outcome: DVT Prophylaxis Outcome/Goals Remains Free of DVT Complies with DVT Prophylaxis /Treatment TEDS Stockings on Every AM, Off at HS Progression Toward Outcome/Goals Progressing Discharge Planning - Improve/Maintain Start: 10/31/18 12:00 Freq: DAILY Status: Active Target: Protocol: Activity Type Activity Date Activity User E-Sign Co-Sign Detail Recorded Client Recorded Date Recorded By Document 11/01/18 00:25 [id number] [email or web address] 11/01/18 00:26 11/01/18 00:25 PMRU Outcome: Discharge Planning Update Patient Family Yes Outcome/Goals Demonstrates Understanding of Discharge Plan Education-Improve/Maintain Start: 10/31/18 12:00 Freq: QSHIFT Status: Active Target: Protocol: Activity Type Activity Date Activity User E-Sign Co-Sign Detail Recorded Client Recorded Date Recorded By Document 11/01/18 00:26 [id number] 11/01/18 00:27 [id number] 11/01/18 00:26 PMRU Outcome: Education Outcome/Goals Encourage Questions Progression Toward Outcome/Goals Progressing /GI-Improve/Maintain Start: 10/31/18 12:00 Freq: QSHIFT Status: Active Target: Protocol: Activity Type Activity Date Activity User E-Sign Co-Sign Detail Recorded Client Recorded Date Recorded By Document 11/01/18 00:26 [id number] [email or web address] 11/01/18 00:27 [id number] 11/01/18 00:26 PMRU Outcome: Genitourinary/ Gastrointestinal Genitourinary- Outcome/Goals Remain Free of Hospital- Acquired UTI Gastrointestinal-Outcome/Goals Prevent Constipation Laxatives as Ordered Progression Toward Outcome/Goals - Progressing Progression Toward Outcome/Goals - GI Progressing Medication Administration Start: 10/31/18 12:00 Freq: QSHIFT Status: Active Target: Protocol: Activity Type Activity Date Activity User E-Sign Co-Sign Detail Recorded Client Recorded Date Recorded By Document 11/01/18 00:26 [id number] 11/01/18 00:27 [id number] 11/01/18 00:26 PMRU Outcome: Medication Administration Assess Patient Knowledge/Teach Med Yes Education for all Meds Outcome/Goals Family/ Caregiver Administer Medications at Home Demonstrates Understanding Progression Towards Outcome/Goals Progressing Is Patient Going Home on Lovenox? No Neurological- Improve/Maintain Start: 10/31/18 12:00 Freq: QSHIFT Status: Active Target: Protocol: Activity Type Activity Date Activity User E-Sign Co-Sign Detail Recorded Client Recorded Date Recorded By Document 11/01/18 00:26 [id number] [email or web address] 11/01/18 00:27 [id number] 11/01/18 00:26 PMRU Outcome: Neurological Weakness/Aphasia Weakness Outcome/Goals Maintain/ Achieve Baseline Neurological Status Improve Neurological Status Prevent Avoidable Neurological Decline Maintain/ Improve Strength/ROM Pain/Comfort- Improve/Maintain Start: 10/31/18 12:00 Freq: QSHIFT Status: Active Target: Protocol: Activity Type Activity Date Activity User E-Sign Co-Sign Detail Recorded Client Recorded Date Recorded By Document 11/01/18 00:26 [id number] 11/01/18 00:27 [id number] 11/01/18 00:26 PMRU Outcome: Pain/Comfort Outcome/Goals Achieves Acceptable Comfort/Pain Level as Determined by Patient/Condit Maintain Comfort Level Allowing Patient to Fully Participate in Rehab Progression Toward Outcome/Goals Progressing Safety- Improve/Maintain Start: 10/31/18 12:00 Freq: QSHIFT Status: Active Target: Protocol: Activity Type Activity Date Activity User E-Sign Co-Sign Detail Recorded Client Recorded Date Recorded By Document 11/01/18 00:26 [id number] [email or web address] 11/01/18 00:27 [id number] 11/01/18 00:26 PMRU Outcome: Safety Outcome/Goals Remain Free of Injury or Harm Cooperates with Safety Measures for Least Restrictive Environment Prevent Falls/ Injury Skin- Improve/Maintain Start: 10/31/18 12:00 Freq: QSHIFT Status: Active Target: Protocol: Activity Type Activity Date Activity User E-Sign Co-Sign Detail Recorded Client Recorded Date Recorded By Document 11/01/18 00:26 [id number] 11/01/18 00:27 [id number] 11/01/18 00:26 PMRU Outcome: Skin Skin Risk Level Medium Skin Orders Turn/Position q2hr While in Bed Outcome/Goals Free from Decubitus Medicine Note: Length of Stay: 2 weeks Anticipated Discharge Destination: Tentative Discharge Date: 11/15/18 Discharged to: home
--- NOTE | 2018-11-01 20:07 | PN ---
Progress Note Date of Service: 11/01/18 Note: MERVIN MCRAE was visited. Therapy notes read and reviewed. She has significant nausea and it is unclear why. She has vomited yesterday. Her lithium level was checked October 29 and was ok. Will order IV fluids, check urine and lithium level. Her abdominal exam is benign Current Medications: Active Medications Generic Name Dose Route Start Last Admin Trade Name Freq PRN Reason Stop Dose Admin Acetaminophen 650 mg 10/31/18 11:30 Tylenol Tab* PO Q6H PRN FEVER/PAIN Aspirin 81 mg 11/01/18 09:00 11/01/18 09:57 Aspirin Ec Tab* PO 81 mg DAILY EDVIN Administration Carbidopa/Levodopa 3 tab 10/31/18 13:00 11/01/18 18:35 Sinemet 25/100 Tab(*) PO 3 tab 0830,1300,1830 EDVIN Administration Clonazepam 0.5 mg 10/31/18 19:01 Klonopin Tab(*) PO BID PRN ANXIETY Cyanocobalamin 500 mcg 10/31/18 21:00 11/01/18 09:57 Vitamin B12 Tab* PO 500 mcg BID EDVIN Administration Docusate Sodium 100 mg 10/31/18 21:00 11/01/18 09:57 Colace Cap* PO 100 mg BID EDVIN Administration Heparin Sodium (Porcine) 5,000 units 10/31/18 14:00 11/01/18 14:49 Heparin Vial(*) SUBCUT 5,000 units Q8HR EDVIN Administration Lamotrigine 100 mg 10/31/18 21:00 11/01/18 09:57 Lamictal Tab(*) PO 100 mg BID EDVIN Administration [place] Carbonate 300 mg 10/31/18 21:00 11/01/18 08:46 [place] Carbonate Tab* PO 300 mg BID EDVIN Administration Mirtazapine 15 mg 10/31/18 11:46 Remeron Tab* PO BEDTIME PRN SLEEP Mometasone Furoate/Formoterol Fumar 2 puff 10/31/18 21:00 11/01/18 08:20 Dulera 200/5 Mdi* INH 2 puff BID EDVIN Administration Ondansetron HCl 4 mg 11/01/18 09:00 11/01/18 18:42 Zofran Odt Tab* PO 4 mg Q4H PRN Administration NAUSEA Pantoprazole Sodium 40 mg 11/01/18 09:00 11/01/18 09:57 Protonix Tab* PO 40 mg DAILY EDVIN Administration Polyethylene Glycol/Electrolytes 17 gm 10/31/18 11:49 Miralax* PO DAILY PRN CONSTIPATION Propranolol HCl 10 mg 11/01/18 09:00 11/01/18 09:57 Inderal Tab* PO 10 mg DAILY EDVIN Administration Senna 2 tab 10/31/18 11:30 Senokot Tab* PO BEDTIME PRN CONSTIPATION Sertraline HCl 150 mg 11/01/18 09:00 11/01/18 09:57 Zoloft* PO 150 mg DAILY EDVIN Administration Tamsulosin HCl 0.4 mg 10/31/18 21:00 10/31/18 23:35 Flomax Cap* PO Not Given BEDTIME EDVIN Tiotropium [place] 1 cap 11/01/18 09:00 11/01/18 08:20 Spiriva Cap.Inh* INH 1 cap DAILY EDVIN Administration Vital Signs: Vital Signs Temp Pulse Resp BP Pulse Ox 98.1 F 61 18 118/70 97 11/01/18 16:05 11/01/18 16:05 11/01/18 16:05 11/01/18 16:05 11/01/18 17:49 Lab Results: Laboratory Results - last 24 hr 11/01/18 11/01/18 04:42 04:42 WBC 5.6 RBC 3.86 Hgb 12.5 Hct 37 MCV 97 MCH 32 H MCHC 34 RDW 13 Plt Count 316 MPV 8.7 Neut % (Auto) 62.5 Lymph % (Auto) 26.0 [place] % (Auto) 6.0 Eos % (Auto) 4.6 Baso % (Auto) 0.9 Absolute Neuts (auto) 3.5 Absolute Lymphs (auto) 1.5 Absolute Monos (auto) 0.3 Absolute Eos (auto) 0.3 Absolute Basos (auto) 0.0 Absolute Nucleated RBC 0.0 Nucleated RBC % 0.0 Sodium 141 Potassium 3.6 Chloride 111 Carbon Dioxide 26 Anion Gap 4 BUN 9 Creatinine 0.61 Est GFR ( Amer) 117.0 Est GFR (Non-Af Amer) 96.7 BUN/Creatinine Ratio 14.8 Glucose 108 H Calcium 10.9 H Total Bilirubin 0.30 AST 7 L ALT < 3 L Alkaline Phosphatase 103 Total Protein 5.7 L Albumin 3.5 Globulin 2.2 Albumin/Globulin Ratio 1.6 Exam: GENERAL: No distress, can answer questions LUNGS: Clear HEART: reg rhythm ABDOMEN: Soft, +BS, non tender EXTREMITIES: pulses intact NEUROLOGIC: alert, moves all 4 extremities Assessment/Plan: 1. Parkinson's Disease: Continue Sinemet 2. Bipolar Disease: [place]/Lamictal 3. Nausea: Zofran. Will give IV fluids. Check U/A 4. Urethral Stricture: Capellan for now 5. COPD: Spiriva/Dulera 6. DVT Prophylaxis: Heparin 7. Advance Directives: Full code. is surrogate decision maker 11/01/18 20:06 11/01/18 20:07
[2018-11-01] MEDS ORDERED: D5NS 0.9% 1000 ML BAG* 1,000 ML IV SCH (21:00)
[2018-11-01] MEDS: Tamsulosin CAP* 0.4 MG PO SCH (21:36)
[2018-11-01 21:59] LABS: Urine Appearance Clear; Urine Bacteria Absent (Absent); Urine Bilirubin Negative (Negative); Urine Blood 2+ (Negative); Urine Color Yellow; Urine Glucose Negative (Negative); Urine Ketones Negative (Negative); Urine Nitrite Negative (Negative); Urine Protein Negative (Negative); Urine Red Blood Cell 3+(>10/hpf) (Absent); Urine Specific Gravity 1.008 (1.010-1.030); Urine Squamous Epithelial Cell Present (Absent); Urine Urobilinogen Negative (Negative); Urine White Blood Cell Trace(0-5/hpf) (Absent)
[2018-11-02] MEDS: clonazePAM TAB(*) 0.5 MG PO PRN (03:40)
[2018-11-02] MEDS: Heparin VIAL(*) 5000 UNITS/ML VIAL (FIVE THOUSAND) SUBCUT SCH ×3 (06:36→21:55)
[2018-11-02] MEDS: Mometasone/Formoter 200/5 MDI INH SCH ×2 (07:49→21:03)
[2018-11-02] MEDS: Tiotropium CAP.INH* CAP.INH/18 MCG (USE ORDER SET !) INH SCH (07:50)
[2018-11-02] MEDS: Ondansetron ODT TAB* 4 MG PO PRN (08:03)
[2018-11-02] MEDS: Carbidopa/Levodop 25/100 MG TAB(*) PO SCH ×3 (08:10→18:42)
[2018-11-02] MEDS: Lithium Carbonate TAB* 300 MG PO SCH ×2 (08:12→21:02)
[2018-11-02] MEDS: lamoTRIgine TAB(*) 100 MG PO SCH ×2 (08:12→21:03)
[2018-11-02] MEDS: Sertraline* 100 MG TAB PO SCH (09:12)
[2018-11-02] MEDS: Propranolol TAB* 10 MG PO SCH (09:16)
[2018-11-02] MEDS: Pantoprazole TAB * 40 MG TAB PO SCH (09:16)
[2018-11-02] MEDS: Aspirin EC TAB* 81 MG TAB.EC PO SCH (11:02)
[2018-11-02] MEDS: Docusate CAP* 100 MG PO SCH ×2 (11:02→21:02)
[2018-11-02] MEDS: Cyanocobalamin TAB* 500 MCG PO SCH ×2 (11:03→21:02)
--- NOTE | 2018-11-02 14:50 | PN ---
Progress Note Date of Service: 11/02/18 Note: MERVIN MCRAE was visited. Nursing notes read and reviewed. Her case was discussed with her therapy aide, Flaquita, as well as her , Matthew. She felt better after the IV fluids. She had a large bowel movement this morning. She was able to eat a bowl of frosted flakes and some fresh blueberries. Her lithium level was ok. U/A showed some blood (she has a espinoza) but was okay otherwise. Current Medications: Active Medications Generic Name Dose Route Start Last Admin Trade Name Freq PRN Reason Stop Dose Admin Acetaminophen 650 mg 10/31/18 11:30 Tylenol Tab* PO Q6H PRN FEVER/PAIN Aspirin 81 mg 11/01/18 09:00 11/02/18 11:02 Aspirin Ec Tab* PO 81 mg DAILY EDVIN Administration Carbidopa/Levodopa 3 tab 10/31/18 13:00 11/02/18 13:10 Sinemet 25/100 Tab(*) PO 3 tab 0830,1300,1830 EDVIN Administration Clonazepam 0.5 mg 10/31/18 19:01 11/02/18 03:40 Klonopin Tab(*) PO 0.5 mg BID PRN Administration ANXIETY Cyanocobalamin 500 mcg 10/31/18 21:00 11/02/18 11:03 Vitamin B12 Tab* PO 500 mcg BID EDVIN Administration Docusate Sodium 100 mg 10/31/18 21:00 11/02/18 11:02 Colace Cap* PO 100 mg BID EDVIN Administration Heparin Sodium (Porcine) 5,000 units 10/31/18 14:00 11/02/18 13:10 Heparin Vial(*) SUBCUT 5,000 units Q8HR EDVIN Administration Lamotrigine 100 mg 10/31/18 21:00 11/02/18 08:12 Lamictal Tab(*) PO 100 mg BID EDVIN Administration [place] Carbonate 300 mg 10/31/18 21:00 11/02/18 08:12 [place] Carbonate Tab* PO 300 mg BID EDVIN Administration Mirtazapine 15 mg 10/31/18 11:46 Remeron Tab* PO BEDTIME PRN SLEEP Mometasone Furoate/Formoterol Fumar 2 puff 10/31/18 21:00 11/02/18 07:49 Dulera 200/5 Mdi* INH 2 puff BID EDVIN Administration Ondansetron HCl 4 mg 11/01/18 09:00 11/02/18 08:03 Zofran Odt Tab* PO 4 mg Q4H PRN Administration NAUSEA Pantoprazole Sodium 40 mg 11/01/18 09:00 11/02/18 09:16 Protonix Tab* PO 40 mg DAILY EDVIN Administration Polyethylene Glycol/Electrolytes 17 gm 10/31/18 11:49 Miralax* PO DAILY PRN CONSTIPATION Propranolol HCl 10 mg 11/01/18 09:00 11/02/18 09:16 Inderal Tab* PO 10 mg DAILY EDVIN Administration Senna 2 tab 10/31/18 11:30 Senokot Tab* PO BEDTIME PRN CONSTIPATION Sertraline HCl 150 mg 11/01/18 09:00 11/02/18 09:12 Zoloft* PO 150 mg DAILY EDVIN Administration Tamsulosin HCl 0.4 mg 10/31/18 21:00 11/01/18 21:36 Flomax Cap* PO 0.4 mg BEDTIME EDVIN Administration Tiotropium [place] 1 cap 11/01/18 09:00 11/02/18 07:50 Spiriva Cap.Inh* INH 1 cap DAILY EDVIN Administration Vital Signs: Vital Signs Temp Pulse Resp BP Pulse Ox 98.0 F 50 16 116/60 95 11/02/18 06:54 11/02/18 06:54 11/02/18 06:54 11/02/18 06:54 11/02/18 06:54 Lab Results: Laboratory Results - last 24 hr 11/01/18 11/01/18 21:05 21:40 Urine Color Yellow Urine Appearance Clear Urine pH 8.0 Ur Specific [place] 1.008 L Urine Protein Negative Urine Ketones Negative Urine Blood 2+ A Urine Nitrate Negative Urine Bilirubin Negative Urine Urobilinogen Negative Ur Leukocyte Esterase Negative Urine WBC (Auto) Trace(0-5/hpf) Urine RBC (Auto) 3+(>10/hpf) A Ur Squamous Epith Cells Present A Urine Bacteria Absent Urine Glucose Negative [place] 0.70 Exam: GENERAL: No distress, can answer questions LUNGS: Clear HEART: reg rhythm ABDOMEN: Soft, +BS, non tender EXTREMITIES: pulses intact NEUROLOGIC: alert, moves all 4 extremities Assessment/Plan: 1. Parkinson's Disease: Continue Sinemet 2. Bipolar Disease: [place]/Lamictal 3. Nausea: Zofran. Better after IV fluids. Follow 4. Urethral Stricture: Espinoza for now 5. COPD: Spiriva/Dulera 6. DVT Prophylaxis: Heparin 7. Advance Directives: Full code. is surrogate decision maker 11/02/18 14:50
[2018-11-02] MEDS: Tamsulosin CAP* 0.4 MG PO SCH (21:02)
[2018-11-03] MEDS: Ondansetron ODT TAB* 4 MG PO PRN ×4 (01:55→22:24)
[2018-11-03] MEDS: clonazePAM TAB(*) 0.5 MG PO PRN ×3 (02:37→22:23)
[2018-11-03] MEDS: Acetaminophen TAB* 325 MG PO PRN ×3 (03:02→16:08)
[2018-11-03] MEDS: Heparin VIAL(*) 5000 UNITS/ML VIAL (FIVE THOUSAND) SUBCUT SCH ×3 (06:16→22:00)
[2018-11-03] MEDS: Carbidopa/Levodop 25/100 MG TAB(*) PO SCH ×3 (08:37→18:32)
[2018-11-03] MEDS: Lithium Carbonate TAB* 300 MG PO SCH ×2 (08:39→21:58)
[2018-11-03] MEDS: Propranolol TAB* 10 MG PO SCH (08:40)
[2018-11-03] MEDS: Sertraline* 100 MG TAB PO SCH (08:41)
[2018-11-03] MEDS: lamoTRIgine TAB(*) 100 MG PO SCH ×2 (08:43→21:58)
[2018-11-03] MEDS: Pantoprazole TAB * 40 MG TAB PO SCH (08:43)
[2018-11-03] MEDS: Mometasone/Formoter 200/5 MDI INH SCH ×2 (09:40→21:58)
[2018-11-03] MEDS: Tiotropium CAP.INH* CAP.INH/18 MCG (USE ORDER SET !) INH SCH (09:40)
[2018-11-03] MEDS: Aspirin EC TAB* 81 MG TAB.EC PO SCH (10:21)
[2018-11-03] MEDS: Cyanocobalamin TAB* 500 MCG PO SCH ×2 (10:21→21:57)
[2018-11-03] MEDS: Docusate CAP* 100 MG PO SCH ×2 (10:21→21:58)
--- NOTE | 2018-11-03 20:39 | PN ---
Progress Note Date of Service: 11/03/18 Note: MERVIN MCRAE was visited. Nursing notes read and reviewed. Still with very limited appetite. Will change Remeron to Scheduled, not PRN as it was at home. Her informs me that she was on Megace last year after she fell ill in [place]. May need to retry it. Also was on scheduled Klonopin at home Current Medications: Active Medications Generic Name Dose Route Start Last Admin Trade Name Freq PRN Reason Stop Dose Admin Acetaminophen 650 mg 10/31/18 11:30 11/03/18 16:08 Tylenol Tab* PO 650 mg Q6H PRN Administration FEVER/PAIN Aspirin 81 mg 11/01/18 09:00 11/03/18 10:21 Aspirin Ec Tab* PO 81 mg DAILY EDVIN Administration Carbidopa/Levodopa 3 tab 10/31/18 13:00 11/03/18 18:32 Sinemet 25/100 Tab(*) PO 3 tab 0830,1300,1830 EDVIN Administration Clonazepam 0.5 mg 11/04/18 07:30 Klonopin Tab(*) PO 0730,1300,1730 EDVIN Cyanocobalamin 500 mcg 10/31/18 21:00 11/03/18 10:21 Vitamin B12 Tab* PO 500 mcg BID EDVIN Administration Docusate Sodium 100 mg 10/31/18 21:00 11/03/18 10:21 Colace Cap* PO 100 mg BID EDVIN Administration Heparin Sodium (Porcine) 5,000 units 10/31/18 14:00 11/03/18 14:03 Heparin Vial(*) SUBCUT 5,000 units Q8HR EDVIN Administration Lamotrigine 100 mg 10/31/18 21:00 11/03/18 08:43 Lamictal Tab(*) PO 100 mg BID EDVIN Administration [place] Carbonate 300 mg 10/31/18 21:00 11/03/18 08:39 [place] Carbonate Tab* PO 300 mg BID EDVIN Administration Mirtazapine 15 mg 11/03/18 21:00 Remeron Tab* PO BEDTIME EDVIN Mometasone Furoate/Formoterol Fumar 2 puff 10/31/18 21:00 11/03/18 09:40 Dulera 200/5 Mdi* INH 2 puff BID EDVIN Administration Non-Formulary Medication 1 cap 11/04/18 12:00 [place] PO 1200 EDVIN Non-Formulary Medication 1 cap 11/04/18 12:00 Probiotic 10 PO 1200 EDVIN Ondansetron HCl 4 mg 11/01/18 09:00 11/03/18 11:45 Zofran Odt Tab* PO 4 mg Q4H PRN Administration NAUSEA Pantoprazole Sodium 40 mg 11/01/18 09:00 11/03/18 08:43 Protonix Tab* PO 40 mg DAILY EDVIN Administration Polyethylene Glycol/Electrolytes 17 gm 10/31/18 11:49 Miralax* PO DAILY PRN CONSTIPATION Propranolol HCl 10 mg 11/01/18 09:00 11/03/18 08:40 Inderal Tab* PO 10 mg DAILY EDVIN Administration Senna 2 tab 11/03/18 21:00 Senokot Tab* PO BEDTIME EDVIN Sertraline HCl 150 mg 11/01/18 09:00 11/03/18 08:41 Zoloft* PO 150 mg DAILY EDVIN Administration Tamsulosin HCl 0.4 mg 10/31/18 21:00 11/02/18 21:02 Flomax Cap* PO 0.4 mg BEDTIME EDVIN Administration Tiotropium [place] 1 cap 11/01/18 09:00 11/03/18 09:40 Spiriva Cap.Inh* INH 1 cap DAILY EDVIN Administration Vital Signs: Vital Signs Temp Pulse Resp BP Pulse Ox 98.2 F 55 16 125/68 91 11/03/18 16:32 11/03/18 16:32 11/03/18 16:32 11/03/18 16:32 11/03/18 19:03 Exam: GENERAL: No distress, can answer questions LUNGS: Clear HEART: reg rhythm ABDOMEN: Soft, +BS, non tender EXTREMITIES: pulses intact NEUROLOGIC: alert, moves all 4 extremities Assessment/Plan: 1. Parkinson's Disease: Continue Sinemet 2. Bipolar Disease: [place]/Lamictal 3. Nausea: Zofran. Better after IV fluids. Follow 4. Urethral Stricture: Capellan for now 5. COPD: [place]/Dulera 6. DVT Prophylaxis: Heparin 7. Advance Directives: Full code. is surrogate decision maker 11/03/18 20:39
[2018-11-03] MEDS: Mirtazapine TAB* 15 MG PO SCH (21:57)
[2018-11-03] MEDS: Senna TAB 8.6 mg* TAB PO SCH (21:58)
[2018-11-03] MEDS: Tamsulosin CAP* 0.4 MG PO SCH (21:58)
[2018-11-04] MEDS: Heparin VIAL(*) 5000 UNITS/ML VIAL (FIVE THOUSAND) SUBCUT SCH ×3 (05:09→20:59)
[2018-11-04] MEDS: Pantoprazole TAB * 40 MG TAB PO SCH (08:35)
[2018-11-04] MEDS: Cyanocobalamin TAB* 500 MCG PO SCH ×2 (08:35→20:48)
[2018-11-04] MEDS: Aspirin EC TAB* 81 MG TAB.EC PO SCH (08:35)
[2018-11-04] MEDS: lamoTRIgine TAB(*) 100 MG PO SCH ×2 (08:35→20:50)
[2018-11-04] MEDS: Docusate CAP* 100 MG PO SCH ×2 (08:35→20:12)
[2018-11-04] MEDS: Lithium Carbonate TAB* 300 MG PO SCH ×2 (08:36→20:50)
[2018-11-04] MEDS: Mometasone/Formoter 200/5 MDI INH SCH ×2 (08:36→20:59)
[2018-11-04] MEDS: Propranolol TAB* 10 MG PO SCH (08:37)
[2018-11-04] MEDS: Sertraline* 100 MG TAB PO SCH (08:37)
[2018-11-04] MEDS: Tiotropium CAP.INH* CAP.INH/18 MCG (USE ORDER SET !) INH SCH (08:37)
[2018-11-04] MEDS: clonazePAM TAB(*) 0.5 MG PO SCH ×3 (08:40→17:10)
[2018-11-04] MEDS: Carbidopa/Levodop 25/100 MG TAB(*) PO SCH ×3 (08:40→19:07)
[2018-11-04] MEDS: ELLURA PO SCH (12:42)
[2018-11-04] MEDS: PROBIOTIC PO SCH (12:42)
--- NOTE | 2018-11-04 18:25 | PN ---
Progress Note Date of Service: 11/04/18 Note: MERVIN MCRAE was visited. Therapy notes read and reviewed. She was able to move a little better today and she ate fairly well with breakfast and lunch. Current Medications: Active Medications Generic Name Dose Route Start Last Admin Trade Name Freq PRN Reason Stop Dose Admin Acetaminophen 650 mg 10/31/18 11:30 11/03/18 16:08 Tylenol Tab* PO 650 mg Q6H PRN Administration FEVER/PAIN Aspirin 81 mg 11/01/18 09:00 11/04/18 08:35 Aspirin Ec Tab* PO 81 mg DAILY EDVIN Administration Carbidopa/Levodopa 3 tab 10/31/18 13:00 11/04/18 12:42 Sinemet 25/100 Tab(*) PO 3 tab 0830,1300,1830 EDVIN Administration Clonazepam 0.5 mg 11/04/18 07:30 11/04/18 17:10 Klonopin Tab(*) PO 0.5 mg 0730,1300,1730 EDVIN Administration Clonazepam 0.5 mg 11/03/18 21:52 11/03/18 22:23 Klonopin Tab(*) PO 0.5 mg Q24H PRN Administration ANXIETY Cyanocobalamin 500 mcg 10/31/18 21:00 11/04/18 08:35 Vitamin B12 Tab* PO 500 mcg BID EDVIN Administration Docusate Sodium 100 mg 10/31/18 21:00 11/04/18 08:35 Colace Cap* PO 100 mg BID EDVIN Administration Heparin Sodium (Porcine) 5,000 units 10/31/18 14:00 11/04/18 13:59 Heparin Vial(*) SUBCUT 5,000 units Q8HR EDVIN Administration Lamotrigine 100 mg 10/31/18 21:00 11/04/18 08:35 Lamictal Tab(*) PO 100 mg BID EDVIN Administration [place] Carbonate 300 mg 10/31/18 21:00 11/04/18 08:36 [place] Carbonate Tab* PO 300 mg BID EDVIN Administration Mirtazapine 15 mg 11/03/18 21:00 11/03/18 21:57 Remeron Tab* PO 15 mg BEDTIME EDVIN Administration Mometasone Furoate/Formoterol Fumar 2 puff 10/31/18 21:00 11/04/18 08:36 Dulera 200/5 Mdi* INH 2 puff BID EDVIN Administration Pto: ([place] 1 Cap) 1 cap 11/04/18 12:00 11/04/18 12:42 PO 1 cap 1200 EDVIN Administration Pto: (Probiotic 10 1 cap 11/04/18 12:00 11/04/18 12:42 Cap) PO 1 cap 1200 EDVIN Administration Ondansetron HCl 4 mg 11/01/18 09:00 11/03/18 22:24 Zofran Odt Tab* PO 4 mg Q4H PRN Administration NAUSEA Pantoprazole Sodium 40 mg 11/01/18 09:00 11/04/18 08:35 Protonix Tab* PO 40 mg DAILY EDVIN Administration Polyethylene Glycol/Electrolytes 17 gm 10/31/18 11:49 Miralax* PO DAILY PRN CONSTIPATION Propranolol HCl 10 mg 11/01/18 09:00 11/04/18 08:37 Inderal Tab* PO 10 mg DAILY EDVIN Administration Senna 2 tab 11/03/18 21:00 11/03/18 21:58 Senokot Tab* PO 2 tab BEDTIME EDVIN Administration Sertraline HCl 150 mg 11/01/18 09:00 11/04/18 08:37 Zoloft* PO 150 mg DAILY EDVIN Administration Tamsulosin HCl 0.4 mg 10/31/18 21:00 11/03/18 21:58 Flomax Cap* PO 0.4 mg BEDTIME EDVIN Administration Tiotropium [place] 1 cap 11/01/18 09:00 11/04/18 08:37 Spiriva Cap.Inh* INH 1 cap DAILY EDVIN Administration Vital Signs: Vital Signs Temp Pulse Resp BP Pulse Ox 97.4 F 66 18 99/61 94 11/04/18 17:06 11/04/18 17:06 11/04/18 17:10 11/04/18 17:06 11/04/18 17:06 Exam: GENERAL: No distress, can answer questions LUNGS: Clear HEART: reg rhythm ABDOMEN: Soft, +BS, non tender EXTREMITIES: pulses intact NEUROLOGIC: alert, moves all 4 extremities Assessment/Plan: 1. Parkinson's Disease: Continue Sinemet 2. Bipolar Disease: [place]/Lamictal 3. Nausea: Zofran. Better. Follow 4. Urethral Stricture: Espinoza for now; clamping espinoza 5. COPD: [place]/Dulera 6. DVT Prophylaxis: Heparin 7. Anxiety: Scheduled Klonopin 8. Advance Directives: Full code. is surrogate decision maker 11/04/18 18:25
[2018-11-04] MEDS: Senna TAB 8.6 mg* TAB PO SCH (20:12)
[2018-11-04] MEDS: Mirtazapine TAB* 15 MG PO SCH (20:50)
[2018-11-04] MEDS: Tamsulosin CAP* 0.4 MG PO SCH (20:50)
[2018-11-05] MEDS: Heparin VIAL(*) 5000 UNITS/ML VIAL (FIVE THOUSAND) SUBCUT SCH ×3 (05:52→21:24)
[2018-11-05] MEDS: Ondansetron ODT TAB* 4 MG PO PRN (06:14)
[2018-11-05] MEDS: Lithium Carbonate TAB* 300 MG PO SCH ×2 (08:09→20:52)
[2018-11-05] MEDS: Cyanocobalamin TAB* 500 MCG PO SCH ×2 (08:09→20:52)
[2018-11-05] MEDS: clonazePAM TAB(*) 0.5 MG PO SCH ×3 (08:09→17:57)
[2018-11-05] MEDS: Aspirin EC TAB* 81 MG TAB.EC PO SCH (08:09)
[2018-11-05] MEDS: Propranolol TAB* 10 MG PO SCH (08:09)
[2018-11-05] MEDS: Carbidopa/Levodop 25/100 MG TAB(*) PO SCH ×3 (08:09→17:54)
[2018-11-05] MEDS: Pantoprazole TAB * 40 MG TAB PO SCH (08:09)
[2018-11-05] MEDS: Sertraline* 100 MG TAB PO SCH (08:09)
[2018-11-05] MEDS: lamoTRIgine TAB(*) 100 MG PO SCH ×2 (08:09→20:52)
[2018-11-05] MEDS: Docusate CAP* 100 MG PO SCH ×2 (11:12→19:53)
[2018-11-05] MEDS: Mometasone/Formoter 200/5 MDI INH SCH ×2 (11:20→21:23)
[2018-11-05] MEDS: Tiotropium CAP.INH* CAP.INH/18 MCG (USE ORDER SET !) INH SCH (11:20)
[2018-11-05] MEDS: ELLURA PO SCH (11:48)
[2018-11-05] MEDS: PROBIOTIC PO SCH (11:49)
--- NOTE | 2018-11-05 12:45 | PMRUTEAM ---
PMRU: Team Meeting Current Status: Nursing: Current Status Skin Deviations [Right Ear] Pressure Ulcer Skin Deviations [Bilateral Abrasion,Pressure Ulcer Buttocks] Skin Deviations [Coccyx] Blister Skin Deviation Description [ lotion in place Bilateral Buttocks] Skin Deviation Description [ red and purplish area - orange cream applied Coccyx] Bladder Current Status Continent - 1 assist to bathroom Bowel Current Status Continent - 1 assist with toileting Nutrition Current Status Eats 75% of most meals Medication Current Status Needs encouragement with medications Physical Therapy: Current Status Bed Mobility Assistance Min Assist Transfer Mobility Assistance Min Assist Transfer/Bed Mobility Rolling Walker Recommended Devices Ambulation Assistance Contact Guard Assist Ambulation Assistive Devices Rolling Walker Number of Feet Patient 200 Ambulated Ambulation Comment small shuffling steps Stairs Assistance Contact Guard Assist Stairs Recommended Devices Two Rails Number of Stairs 4 Occupational Therapy: Current Status Upper Body Dressing Min Assist Lower Body Dressing Max Asst,2 Person Assist Bathing Mod Assist,2 Person Assist Toileting Min Assist,2 Person Assist Toilet Transfer Min Assist,2 Person Assist Shower Transfer Min Assist,2 Person Assist Eating Supervision Rec Therapy: Current Status Summary of Assessment and Recreation Assessment completed and pt. is aware Clinical Impression services. Pt. is with aides but leisure visits will continue. Provided pt. with magazines at her request. Pt. has been engaged in pet therapy as well. Treatment Goals Pt. will engage in leisure activities while on the unit. Treatment Plan Provide recreation therapy and encourage involvement. Social Work: Current Status Discharge Plan return home with home care svs and family support Potential for Family Training pt's family are involved and supportive Anticipated Discharge Home Destination Discharge With home care svs and family support Nutrition: Current Status Monitoring Nutrition consult received due to limited appetite . Visited pt this afternoon during lunch. Pt was eating a PBJ sandwich (~ 50%). She reported that she has eaten well today. Intake since admission to [facility] has been variable, and overall inadequate, ranging from 0-50% of meals. We discussed diet preferences. Pt would like to continue to receive cereal as an afternoon snack. She has been ordering lactaid milk w/ her meals. Encouraged intake of protein containing foods. Pt will eat meat occasionally, but is picky (for example will eat turkey, but only for dinner on Sunday night). She likes eggs, over light, but does not tend to eat them often. She will eat cottage cheese, but not yogurt. Again tried to offer an oral nutritional supplement. Pt was amenable to trying Ensure Clear apple flavor this afternoon. Will send. Pt is aware to request to have this scheduled if she enjoys it. Pt denied GI s/sx, such as N/V today. She reported last episode of N/ V was yesterday. Zofran given last evening. Last BM documented 11/03. Per chart, pt does have small open areas to her buttock. Estimated kcal/protein needs are outlined below. Pt denied difficulty chewing/swallowing. She is recieving soft textures per preference. No changes to diet indicated at this time. No new labs to review. Will continue to follow adequacy of PO intake. Speech: Current Status Assessment Patient is progressing as expected. Further assessment: on the [place] Naming Test, patient scored 40/60, where 52 is normal; patient was stimulable to phonemic cues for 8/20 missed items. Patient frequently stated, "I know what it is," but circumlocuted or produced phonemic paraphasias . Given maximal skilled instruction and promting to use a combination of memory techniques, patient improved independent retrieval of 4 picture items from 1/4 to inconsistent 2/4 after 3 minutes delay , and retrieved 4/4 given moderate cueing of her chosen associations. Goals: Physical Therapy: Initial Goals Bed Mobility Assistance Supervision Transfer Mobility Assistance Supervision Transfer/Bed Mobility Rolling Walker Recommended Devices Ambulation Supervision Ambulation Recommended Devices Rolling Walker Ambulation Distance 150 Stairs Assistance Supervision Stair Recommended Devices One Rail Number of Stairs flight Home Exercise Program Supervision Assistance Physical Therapy: Updated Goals Transfer/Bed Mobility Rolling Walker Recommended Devices Occupational Therapy: Initial Goals Goals to be Completed in (Days 14-21 days ) Upper Body Bathing Routine Supervision/Set Up Lower Body Bathing Routine Minimal Contact Assist Upper Body Dressing Routine Minimal Contact Assist Lower Body Dressing Routine Minimal Contact Assist Toilet Hygeine and Clothing Minimal Contact Assist Management Routine Toilet Transfer Routine Supervision/Set Up Tub Transfer Routine Supervision/Set Up,Minimal Contact Assist Functional Transfers for ADL Supervision/Set Up Grooming Routine Supervision/Set Up Feeding Routine Supervision/Set Up Nursing: Goals Bladder Goal Continent - independent with toileting Bowel Goal Continent - independent with toileting Nutrition Goal Eats 100% of all meals Medication Goal Assistance with medications Nutrition: Goals Intervention Goals 1. pt will tolerate po intake without adverse GI effects 2. adequate po intake to maintain hydration, stable wt, and lean body mass 3. achieve and maintain serum electrolytes levels WNL 4. achieve and maintain regulated bowel pattern without c/o constipation (or diarrhea) 5. intake will promote wound healing w/o additional skin breakdown Speech: Goals Speech Goal 1 Memory Goal 1 Comments Memory Goals: Long-Term Goal: Pt will use compensatory strategies to encode and retrieve 5/5 new items after delay of 30 minutes, Independently, for independence in mobility safety, ADLs and community access. Status: Progressing slowly as expected Long-Term Goal: Pt will use compensatory strategies to solve simple routine problems, for transfer and mobility safety, adaptive dressing, time and money management; with 80% accuracy, given skilled instruction, Moderate cueing, and extra time. Status: Progressing slowly as expected Short-term Goals 1) STG: Patient will use compensatory strategies to encode and retrieve 3/4 new items after delay of 5 minutes, given skilled instruction, Moderate cueing, and extra time. Status: Progressing slowly as expected 2) STG: Patient will use compensatory strategies to solve simple routine problems, for transfer and mobility safety, adaptive dressing, time and money management; with 80% accuracy, given skilled instruction, Maximum cueing, and extra time. Status: Progressing slowly as expected Speech Goal 2 Language Expression Speech Goal 2 Comments Language Expression Goals: Long-Term Goal: Pt will use conversational repair strategies to cooperatively find words in structured conversation, 80% accuracy, given extra time, givne moderate cueing Status: Progressing slowly as expected Short-Term Goal: Pt will use conversational repair strategies to cooperatively find words in structured language activities, 80% accuracy, given skilled instruction, Maximal cueing, and extra time. Status: Progressing slowly as expected. Patient retreived 4/4 itemd after delays up to 3 minutes givne maximal cueing. Social Work: Goals Discharge Plan return home with home care svs and family support Potential for Family Training pt's family are involved and supportive Anticipated Discharge Home Destination Discharge With home care svs and family support Medicine Note: Length of Stay: 10 days Anticipated Discharge Destination: Home Tentative Discharge Date: 11/15/18 Discharged to: home
[2018-11-05] MEDS: Acetaminophen TAB* 325 MG PO PRN (14:57)
--- NOTE | 2018-11-05 15:53 | CONSULT ---
Subjective Date of Service: 11/05/18 Interval History: Ms. Nelson is a 73 yo female with PMH significant for Parkinson's disease, COPD, Bipolar, who presented to the emergency room for weakness. She is currently a patient on the inpatient rehabilitation unit for weakness in the setting of Parkinson's disease. [place] [facility] [place] as red and blanchable on admission to the hospital and again when admitted to [facility]. During her stay on [facility] the the area became a dark purplish discoloration with skin peeling. She is also noted to have had a skin tear to her buttocks while on [facility]. Patient seen and examined at bedside. Family History: Unchanged from Admission Social History: Unchanged from Admission Past Medical History: Unchanged from Admission Review of Systems - Measurements Intake and Output: Intake and Output Last 24 Hours 11/03/18 11/04/18 11/05/18 11/06/18 06:59 06:59 06:59 06:59 Intake Total 2400 540 200 100 Output Total 2120 725 930 500 Balance 280 -185 -730 -400 Intake: IV Fluids 950 D5W NS (0.9%) 950 Oral 1450 540 200 100 Output: Urine 750 225 500 Capellan 1370 500 930 Other: Estimated Void Medium Medium Date of Last Bowel 11/02/18 Movement # Bowel Movements 1 1 1 Estimated Stool Amount Medium Medium Small Medium # Voids 1 1 - Review of Systems Constitutional Symptoms: Negative: Fever, Other - Chills Dermatology: Positive: Other - Open area to buttocks Objective Active Medications: Acetaminophen (Tylenol Tab*) 650 mg PO Q6H PRN Reason: FEVER/PAIN Aspirin (Aspirin Ec Tab*) 81 mg PO DAILY EDVIN Carbidopa/Levodopa (Sinemet 25/100 Tab(*)) 3 tab PO 0730,1300,1730 EDVIN Clonazepam (Klonopin Tab(*)) 0.5 mg PO 0730,1300,1730 EDVIN Clonazepam (Klonopin Tab(*)) 0.5 mg PO Q24H PRN Reason: ANXIETY Cyanocobalamin (Vitamin B12 Tab*) 500 mcg PO BID EDVIN Docusate Sodium (Colace Cap*) 100 mg PO BID EDVIN Heparin Sodium (Porcine) (Heparin Vial(*)) 5,000 units SUBCUT Q8HR EDVIN Lamotrigine (Lamictal Tab(*)) 100 mg PO BID EDVIN [place] Carbonate ([place] Carbonate Tab*) 300 mg PO BID EDVIN Mirtazapine (Remeron Tab*) 15 mg PO BEDTIME EDVIN Mometasone Furoate/Formoterol Fumar (Dulera 200/5 Mdi*) 2 puff INH BID EDVIN Pto: (Ellura 1 Cap) 1 cap PO 1200 EDVIN Pto: (Probiotic 10 (Cap)) 1 cap PO 1200 EDVIN Ondansetron HCl (Zofran Odt Tab*) 4 mg PO Q4H PRN Reason: NAUSEA Pantoprazole Sodium (Protonix Tab*) 40 mg PO DAILY EDVIN Polyethylene Glycol/Electrolytes (Miralax*) 17 gm PO DAILY PRN Reason: CONSTIPATION Propranolol HCl (Inderal Tab*) 10 mg PO DAILY EDVIN Senna (Senokot Tab*) 2 tab PO BEDTIME EDVIN Sertraline HCl (Zoloft*) 150 mg PO DAILY EDVIN Tamsulosin HCl (Flomax Cap*) 0.4 mg PO BEDTIME EDVIN Tiotropium [place] (Spiriva Cap.Inh*) 1 cap INH DAILY EDVIN Vital Signs 11/05/18 11/05/18 11/05/18 13:20 15:44 15:51 Temperature 97.5 F Pulse Rate 75 Respiratory 18 18 Rate Blood Pressure 110/75 (mmHg) O2 Sat by Pulse 90 95 Oximetry Oxygen Devices in Use Now: None Appearance: NAD, laying in bed Ears/Nose/Mouth/Throat: Mucous Membranes Moist Respiratory: Symmetrical Chest Expansion and Respiratory Effort Skin: - - See skin note below Neurological: - - Alert and Oriented to person and place Nutrition: Taking PO's Result Diagrams: 11/08/18 06:05 11/08/18 06:05 Additional Lab and Data: Above labs were pulled into the note when the note was edited prior to signing the note, please see labs from the day of the consultation below. Laboratory Tests 11/01/18 11/01/18 04:42 04:42 WBC 5.6 Hgb 12.5 Hct 37 Plt Count 316 Sodium 141 Potassium 3.6 Chloride 111 Carbon Dioxide 26 BUN 9 Est GFR ( Amer) 117.0 Glucose 108 H Total Protein 5.7 L Albumin 3.5 Skin Deviation Note - Skin Deviation Findings Patient declined photograph of wound. There is and area to the coccyx and bilateral buttocks that measures a total of 8 cm x 10 cm. There is no open areas. There is some superficial skin peeling that appears to be secondary to shearing and lotion residue. There areas with a dark purplish discoloration that is not blanchabe and red blanchable areas. There is no drainage and the surrounding skin is intact. ASSESSMENT/PLAN: Ms. Nelson is a 73 yo female with PMH significant for Parkinson's disease, COPD, Bipolar, who presented to the emergency room for weakness. She is currently a patient on the inpatient rehabilitation unit for weakness in the setting of Parkinson's disease 1. Deep purple discoloration to buttocks with skin peeling. Suspect this represents shearing injury with deep tissue injury. Recommend applying barrier cream to the buttocks. Frequent turning and repositioning. If the patient is not incontinent recommend not using a "splitting machine tender pad" to decrease friction. Also consider using a lifting device for moving patient in bed. Consider checking a prealbumin level to evaluate nutritional status. 2. Parkinson's disease. 3. Diet. Regular diet. 4. Code Status. Full Code Status. 5. Disposition. Inpatient, disposition per primary team. TIME SPENT: Time for this wound consultation was 20 minutes and 10 minutes was spent with the patient discussing past medical history; assessing and measuring the wound. Wound Problem/Plan Is Patient a Wound Clinic Patient: No Attending: Bhumika Ferguson
--- NOTE | 2018-11-05 18:53 | PN ---
Progress Note Date of Service: 11/05/18 Note: MERVIN MCRAE was visited. Therapy notes read and reviewed. She was discussed in interdisciplinary team rounds. She did better with eating. Capellan catheter out and she was able to void. Current Medications: Active Medications Generic Name Dose Route Start Last Admin Trade Name Freq PRN Reason Stop Dose Admin Acetaminophen 650 mg 10/31/18 11:30 11/05/18 14:57 Tylenol Tab* PO 650 mg Q6H PRN Administration FEVER/PAIN Aspirin 81 mg 11/01/18 09:00 11/05/18 08:09 Aspirin Ec Tab* PO 81 mg DAILY EDVIN Administration Carbidopa/Levodopa 3 tab 11/05/18 13:00 11/05/18 17:54 Sinemet 25/100 Tab(*) PO 3 tab 0730,1300,1730 EDVIN Administration Clonazepam 0.5 mg 11/04/18 07:30 11/05/18 17:57 Klonopin Tab(*) PO 0.5 mg 0730,1300,1730 EDVIN Administration Clonazepam 0.5 mg 11/03/18 21:52 11/03/18 22:23 Klonopin Tab(*) PO 0.5 mg Q24H PRN Administration ANXIETY Cyanocobalamin 500 mcg 10/31/18 21:00 11/05/18 08:09 Vitamin B12 Tab* PO 500 mcg BID EDVIN Administration Docusate Sodium 100 mg 10/31/18 21:00 11/05/18 11:12 Colace Cap* PO Not Given BID EDVIN Heparin Sodium (Porcine) 5,000 units 10/31/18 14:00 11/05/18 13:18 Heparin Vial(*) SUBCUT 5,000 units Q8HR EDVIN Administration Lamotrigine 100 mg 10/31/18 21:00 11/05/18 08:09 Lamictal Tab(*) PO 100 mg BID EDVIN Administration [place] Carbonate 300 mg 10/31/18 21:00 11/05/18 08:09 [place] Carbonate Tab* PO 300 mg BID EDVIN Administration Mirtazapine 15 mg 11/03/18 21:00 11/04/18 20:50 Remeron Tab* PO 15 mg BEDTIME EDVIN Administration Mometasone Furoate/Formoterol Fumar 2 puff 10/31/18 21:00 11/05/18 11:20 Dulera 200/5 Mdi* INH 2 puff BID EDVNI Administration Pto: (Ell[place] 1 Cap) 1 cap 11/04/18 12:00 11/05/18 11:48 PO 1 cap 1200 EDVIN Administration Pto: (Probiotic 10 1 cap 11/04/18 12:00 11/05/18 11:49 Cap) PO 1 cap 1200 EDVIN Administration Ondansetron HCl 4 mg 11/01/18 09:00 11/05/18 06:14 Zofran Odt Tab* PO 4 mg Q4H PRN Administration NAUSEA Pantoprazole Sodium 40 mg 11/01/18 09:00 11/05/18 08:09 Protonix Tab* PO 40 mg DAILY EDVIN Administration Polyethylene Glycol/Electrolytes 17 gm 10/31/18 11:49 Miralax* PO DAILY PRN CONSTIPATION Propranolol HCl 10 mg 11/01/18 09:00 11/05/18 08:09 Inderal Tab* PO 10 mg DAILY EDVIN Administration Senna 2 tab 11/03/18 21:00 11/04/18 20:12 Senokot Tab* PO Not Given BEDTIME EDVIN Sertraline HCl 150 mg 11/01/18 09:00 11/05/18 08:09 Zoloft* PO 150 mg DAILY EDVIN Administration Tamsulosin HCl 0.4 mg 10/31/18 21:00 11/04/18 20:50 Flomax Cap* PO 0.4 mg BEDTIME EDVIN Administration Tiotropium [place] 1 cap 11/01/18 09:00 11/05/18 11:20 Spiriva Cap.Inh* INH 1 cap DAILY EDVNI Administration Vital Signs: Vital Signs Temp Pulse Resp BP Pulse Ox 97.5 F 75 18 110/75 95 11/05/18 15:44 11/05/18 15:44 11/05/18 17:57 11/05/18 15:44 11/05/18 15:51 Exam: GENERAL: No distress, can answer questions LUNGS: Clear HEART: reg rhythm ABDOMEN: Soft, +BS, non tender EXTREMITIES: pulses intact NEUROLOGIC: alert, moves all 4 extremities Assessment/Plan: 1. Parkinson's Disease: Continue Sinemet 2. Bipolar Disease: [place]/Lamictal 3. Nausea: Zofran. Better. Follow 4. Urethral Stricture: Capellan out. Able to void 5. COPD: Spiriva/Dulera 6. DVT Prophylaxis: Heparin 7. Anxiety: Scheduled Klonopin 8. Advance Directives: Full code. is surrogate decision maker 11/05/18 18:53
[2018-11-05] MEDS: Senna TAB 8.6 mg* TAB PO SCH (19:53)
[2018-11-05] MEDS: Mirtazapine TAB* 15 MG PO SCH (20:52)
[2018-11-05] MEDS: Tamsulosin CAP* 0.4 MG PO SCH (20:52)
[2018-11-06] MEDS: Heparin VIAL(*) 5000 UNITS/ML VIAL (FIVE THOUSAND) SUBCUT SCH ×3 (05:18→21:06)
[2018-11-06] MEDS: Mometasone/Formoter 200/5 MDI INH SCH ×2 (08:08→21:06)
[2018-11-06] MEDS: Tiotropium CAP.INH* CAP.INH/18 MCG (USE ORDER SET !) INH SCH (08:08)
[2018-11-06] MEDS: Carbidopa/Levodop 25/100 MG TAB(*) PO SCH ×3 (08:19→17:32)
[2018-11-06] MEDS: Aspirin EC TAB* 81 MG TAB.EC PO SCH (08:23)
[2018-11-06] MEDS: Cyanocobalamin TAB* 500 MCG PO SCH ×2 (08:23→20:49)
[2018-11-06] MEDS: clonazePAM TAB(*) 0.5 MG PO SCH ×3 (08:23→17:32)
[2018-11-06] MEDS: lamoTRIgine TAB(*) 100 MG PO SCH ×2 (08:23→20:49)
[2018-11-06] MEDS: Lithium Carbonate TAB* 300 MG PO SCH ×2 (08:23→20:49)
[2018-11-06] MEDS: Docusate CAP* 100 MG PO SCH ×2 (08:23→21:06)
[2018-11-06] MEDS: Sertraline* 100 MG TAB PO SCH (08:24)
[2018-11-06] MEDS: Propranolol TAB* 10 MG PO SCH (08:24)
[2018-11-06] MEDS: Pantoprazole TAB * 40 MG TAB PO SCH (08:24)
[2018-11-06] MEDS: ELLURA PO SCH (12:07)
[2018-11-06] MEDS: PROBIOTIC PO SCH (12:08)
[2018-11-06] MEDS: Acetaminophen TAB* 325 MG PO PRN (19:50)
--- NOTE | 2018-11-06 20:12 | PN ---
Progress Note Date of Service: 11/06/18 Note: MERVIN MCRAE was visited. Therapy notes read and reviewed. She has some areas of redness on her bottom but otherwise ok, eating better and did therapy but a little cranky Current Medications: Active Medications Generic Name Dose Route Start Last Admin Trade Name Freq PRN Reason Stop Dose Admin Acetaminophen 650 mg 10/31/18 11:30 11/06/18 19:50 Tylenol Tab* PO 650 mg Q6H PRN Administration FEVER/PAIN Aspirin 81 mg 11/01/18 09:00 11/06/18 08:23 Aspirin Ec Tab* PO 81 mg DAILY EDVIN Administration Carbidopa/Levodopa 3 tab 11/05/18 13:00 11/06/18 17:32 Sinemet 25/100 Tab(*) PO 3 tab 0730,1300,1730 EDVIN Administration Clonazepam 0.5 mg 11/04/18 07:30 11/06/18 17:32 Klonopin Tab(*) PO 0.5 mg 0730,1300,1730 EDVIN Administration Clonazepam 0.5 mg 11/03/18 21:52 11/03/18 22:23 Klonopin Tab(*) PO 0.5 mg Q24H PRN Administration ANXIETY Cyanocobalamin 500 mcg 10/31/18 21:00 11/06/18 08:23 Vitamin B12 Tab* PO 500 mcg BID EDVIN Administration Docusate Sodium 100 mg 10/31/18 21:00 11/06/18 08:23 Colace Cap* PO Not Given BID EDVIN Heparin Sodium (Porcine) 5,000 units 10/31/18 14:00 11/06/18 14:03 Heparin Vial(*) SUBCUT 5,000 units Q8HR EDVIN Administration Lamotrigine 100 mg 10/31/18 21:00 11/06/18 08:23 Lamictal Tab(*) PO 100 mg BID EDVIN Administration [place] Carbonate 300 mg 10/31/18 21:00 11/06/18 08:23 [place] Carbonate Tab* PO 300 mg BID EDVIN Administration Mirtazapine 15 mg 11/03/18 21:00 11/05/18 20:52 Remeron Tab* PO 15 mg BEDTIME EDVIN Administration Mometasone Furoate/Formoterol Fumar 2 puff 10/31/18 21:00 11/06/18 08:08 Dulera 200/5 Mdi* INH 2 puff BID EDVIN Administration Pto: ([place] 1 Cap) 1 cap 11/04/18 12:00 11/06/18 12:07 PO 1 cap 1200 EDVIN Administration Pto: (Probiotic 10 1 cap 11/04/18 12:00 11/06/18 12:08 Cap) PO 1 cap 1200 EDVIN Administration Ondansetron HCl 4 mg 11/01/18 09:00 11/05/18 06:14 Zofran Odt Tab* PO 4 mg Q4H PRN Administration NAUSEA Pantoprazole Sodium 40 mg 11/01/18 09:00 11/06/18 08:24 Protonix Tab* PO 40 mg DAILY EDVIN Administration Polyethylene Glycol/Electrolytes 17 gm 10/31/18 11:49 Miralax* PO DAILY PRN CONSTIPATION Propranolol HCl 10 mg 11/01/18 09:00 11/06/18 08:24 Inderal Tab* PO 10 mg DAILY EDVIN Administration Senna 2 tab 11/03/18 21:00 11/05/18 19:53 Senokot Tab* PO Not Given BEDTIME EDVIN Sertraline HCl 150 mg 11/01/18 09:00 11/06/18 08:24 Zoloft* PO 150 mg DAILY EDVIN Administration Tamsulosin HCl 0.4 mg 10/31/18 21:00 11/05/18 20:52 Flomax Cap* PO 0.4 mg BEDTIME EDVIN Administration Tiotropium [place] 1 cap 11/01/18 09:00 11/06/18 08:08 Spiriva Cap.Inh* INH 1 cap DAILY EDVIN Administration Vital Signs: Vital Signs Temp Pulse Resp BP Pulse Ox 98.0 F 73 18 122/80 95 11/06/18 17:08 11/06/18 17:08 11/06/18 17:32 11/06/18 17:08 11/06/18 18:26 Exam: GENERAL: No distress, can answer questions LUNGS: Clear HEART: reg rhythm ABDOMEN: Soft, +BS, non tender EXTREMITIES: pulses intact NEUROLOGIC: alert, moves all 4 extremities Assessment/Plan: 1. Parkinson's Disease: Continue Sinemet 2. Bipolar Disease: [place]/Lamictal 3. Nausea: Zofran. Better. Follow 4. Urethral Stricture: Capellan out. Able to void 5. COPD: Spiriva/Dulera 6. DVT Prophylaxis: Heparin 7. Anxiety: Scheduled Klonopin 8. Advance Directives: Full code. is surrogate decision maker 11/06/18 20:12
[2018-11-06] MEDS: Tamsulosin CAP* 0.4 MG PO SCH (20:49)
[2018-11-06] MEDS: Mirtazapine TAB* 15 MG PO SCH (20:49)
[2018-11-06] MEDS: Senna TAB 8.6 mg* TAB PO SCH (21:06)
[2018-11-07] MEDS: Heparin VIAL(*) 5000 UNITS/ML VIAL (FIVE THOUSAND) SUBCUT SCH ×3 (05:38→21:54)
[2018-11-07] MEDS: Tiotropium CAP.INH* CAP.INH/18 MCG (USE ORDER SET !) INH SCH (08:09)
[2018-11-07] MEDS: Mometasone/Formoter 200/5 MDI INH SCH ×2 (08:10→21:55)
[2018-11-07] MEDS: Carbidopa/Levodop 25/100 MG TAB(*) PO SCH ×3 (08:48→17:50)
[2018-11-07] MEDS: clonazePAM TAB(*) 0.5 MG PO SCH ×3 (08:50→17:50)
[2018-11-07] MEDS: Pantoprazole TAB * 40 MG TAB PO SCH (08:52)
[2018-11-07] MEDS: Propranolol TAB* 10 MG PO SCH (08:53)
[2018-11-07] MEDS: lamoTRIgine TAB(*) 100 MG PO SCH ×2 (08:54→21:53)
[2018-11-07] MEDS: Docusate CAP* 100 MG PO SCH ×2 (08:54→21:53)
[2018-11-07] MEDS: Cyanocobalamin TAB* 500 MCG PO SCH ×2 (08:54→21:52)
[2018-11-07] MEDS: Aspirin EC TAB* 81 MG TAB.EC PO SCH (08:54)
[2018-11-07] MEDS: Lithium Carbonate TAB* 300 MG PO SCH ×2 (08:55→21:53)
[2018-11-07] MEDS: Sertraline* 100 MG TAB PO SCH (08:55)
[2018-11-07] MEDS: ELLURA PO SCH (12:07)
[2018-11-07] MEDS: PROBIOTIC PO SCH (12:08)
--- NOTE | 2018-11-07 20:31 | PN ---
Progress Note Date of Service: 11/07/18 Note: MERVIN MCRAE was visited. Therapy notes read and reviewed. She ate fairly well at breakfast. She is a little constipated today, otherwise ok. Current Medications: Active Medications Generic Name Dose Route Start Last Admin Trade Name Freq PRN Reason Stop Dose Admin Acetaminophen 650 mg 10/31/18 11:30 11/06/18 19:50 Tylenol Tab* PO 650 mg Q6H PRN Administration FEVER/PAIN Aspirin 81 mg 11/01/18 09:00 11/07/18 08:54 Aspirin Ec Tab* PO 81 mg DAILY EDVIN Administration Carbidopa/Levodopa 3 tab 11/05/18 13:00 11/07/18 17:50 Sinemet 25/100 Tab(*) PO 3 tab 0730,1300,1730 EDVIN Administration Clonazepam 0.5 mg 11/04/18 07:30 11/07/18 17:50 Klonopin Tab(*) PO 0.5 mg 0730,1300,1730 EDVIN Administration Clonazepam 0.5 mg 11/03/18 21:52 11/03/18 22:23 Klonopin Tab(*) PO 0.5 mg Q24H PRN Administration ANXIETY Cyanocobalamin 500 mcg 10/31/18 21:00 11/07/18 08:54 Vitamin B12 Tab* PO 500 mcg BID EDVIN Administration Docusate Sodium 100 mg 10/31/18 21:00 11/07/18 08:54 Colace Cap* PO 100 mg BID EDVIN Administration Heparin Sodium (Porcine) 5,000 units 10/31/18 14:00 11/07/18 13:03 Heparin Vial(*) SUBCUT 5,000 units Q8HR EDVIN Administration Lamotrigine 100 mg 10/31/18 21:00 11/07/18 08:54 Lamictal Tab(*) PO 100 mg BID EDVIN Administration [place] Carbonate 300 mg 10/31/18 21:00 11/07/18 08:55 [place] Carbonate Tab* PO 300 mg BID EDVIN Administration Mirtazapine 15 mg 11/03/18 21:00 11/06/18 20:49 Remeron Tab* PO 15 mg BEDTIME EDVIN Administration Mometasone Furoate/Formoterol Fumar 2 puff 10/31/18 21:00 11/07/18 08:10 Dulera 200/5 Mdi* INH 2 puff BID EDVIN Administration Pto: ([place] 1 Cap) 1 cap 11/04/18 12:00 11/07/18 12:07 PO 1 cap 1200 EDVIN Administration Pto: (Probiotic 10 1 cap 11/04/18 12:00 11/07/18 12:08 Cap) PO 1 cap 1200 EDVIN Administration Ondansetron HCl 4 mg 11/01/18 09:00 11/05/18 06:14 Zofran Odt Tab* PO 4 mg Q4H PRN Administration NAUSEA Pantoprazole Sodium 40 mg 11/01/18 09:00 11/07/18 08:52 Protonix Tab* PO 40 mg DAILY EDVIN Administration Polyethylene Glycol/Electrolytes 17 gm 11/08/18 09:00 Miralax* PO DAILY EDVIN Propranolol HCl 10 mg 11/01/18 09:00 11/07/18 08:53 Inderal Tab* PO 10 mg DAILY EDVIN Administration Senna 2 tab 11/03/18 21:00 11/06/18 21:06 Senokot Tab* PO Not Given BEDTIME EDVIN Sertraline HCl 150 mg 11/01/18 09:00 11/07/18 08:55 Zoloft* PO 150 mg DAILY EDVIN Administration Tamsulosin HCl 0.4 mg 10/31/18 21:00 11/06/18 20:49 Flomax Cap* PO 0.4 mg BEDTIME EDVIN Administration Tiotropium [place] 1 cap 11/01/18 09:00 11/07/18 08:09 Spiriva Cap.Inh* INH 1 cap DAILY EDVIN Administration Vital Signs: Vital Signs Temp Pulse Resp BP Pulse Ox 97.3 F 72 18 118/65 90 11/07/18 17:14 11/07/18 17:14 11/07/18 18:30 11/07/18 17:14 11/07/18 18:30 Exam: GENERAL: No distress, can answer questions LUNGS: Clear HEART: reg rhythm ABDOMEN: Soft, +BS, non tender EXTREMITIES: pulses intact NEUROLOGIC: alert, moves all 4 extremities Assessment/Plan: 1. Parkinson's Disease: Continue Sinemet 2. Bipolar Disease: [place]/Lamictal 3. Nausea: Zofran. Better. Follow 4. Urethral Stricture: Capellan out. Able to void 5. COPD: Sp[place]/Dulera 6. DVT Prophylaxis: Heparin 7. Anxiety: Scheduled Klonopin 8. Advance Directives: Full code. is surrogate decision maker 9. Constipation: Scheduled MiraLax (not PRN) 11/07/18 20:31 11/07/18 20:32
[2018-11-07] MEDS: Senna TAB 8.6 mg* TAB PO SCH (21:53)
[2018-11-07] MEDS: Mirtazapine TAB* 15 MG PO SCH (21:54)
[2018-11-07] MEDS: Tamsulosin CAP* 0.4 MG PO SCH (21:54)
[2018-11-08] MEDS: Heparin VIAL(*) 5000 UNITS/ML VIAL (FIVE THOUSAND) SUBCUT SCH ×3 (05:47→21:31)
[2018-11-08 07:21] LABS: ABS Basophils 0.1 10^3/ul (0-0.2); ABS Eosinophils 0.4 10^3/ul (0-0.6); ABS Lymphocytes 1.6 10^3/ul (1.0-4.8); ABS Monocytes 0.6 10^3/ul (0-0.8); Eosinophil % 5.2 %; Hematocrit 40 % (35-47); Hemoglobin 13.1 g/dL (12.0-16.0); Lymphocyte % 21.3 %; Mean Corpuscular HGB Conc 33 g/dL (31-36); Mean Corpuscular Hemoglobin 32 pg (27-31); Mean Corpuscular Volume 95 fL (80-97); Mean Platelet Volume 10.4 fL (7.4-10.4); Nucleated Red Blood Cells % 0.1; Platelet Count 330 10^3/uL (150-450); Red Blood Count 4.17 10^6 /uL (3.70-4.87); Red Cell Distribution Width 13 % (10-15); White Blood Count 7.6 10^3/uL (3.5-10.8)
[2018-11-08 07:41] LABS: Albumin/Globulin Ratio 1.7 (1-3); BUN/Creatinine Ratio 15.3 (8-20); EGFR African American 79.8 (>60); EGFR Non-African American 65.9 (>60); Globulin 2.3 g/dL (2-4); Potassium 3.5 mmol/L (3.5-5.0); Total Bilirubin 0.4 mg/dL (0.2-1.0); Total Protein 6.3 g/dL (6.4-8.9)
[2018-11-08] MEDS: Lithium Carbonate TAB* 300 MG PO SCH ×2 (07:51→21:30)
[2018-11-08] MEDS: Cyanocobalamin TAB* 500 MCG PO SCH ×2 (07:51→21:31)
[2018-11-08] MEDS: Docusate CAP* 100 MG PO SCH ×2 (07:51→21:30)
[2018-11-08] MEDS: Sertraline* 100 MG TAB PO SCH (07:51)
[2018-11-08] MEDS: lamoTRIgine TAB(*) 100 MG PO SCH ×2 (07:51→21:31)
[2018-11-08] MEDS: Pantoprazole TAB * 40 MG TAB PO SCH (07:51)
[2018-11-08] MEDS: Aspirin EC TAB* 81 MG TAB.EC PO SCH (07:51)
[2018-11-08] MEDS: Carbidopa/Levodop 25/100 MG TAB(*) PO SCH ×3 (07:51→17:52)
[2018-11-08] MEDS: Propranolol TAB* 10 MG PO SCH (07:52)
[2018-11-08] MEDS: clonazePAM TAB(*) 0.5 MG PO SCH ×3 (07:52→17:51)
[2018-11-08] MEDS ORDERED: Polyethylene Glycol 3350* 17 GM PACKET PO SCH ×2 (09:00→14:00)
[2018-11-08] MEDS: Tiotropium CAP.INH* CAP.INH/18 MCG (USE ORDER SET !) INH SCH (09:23)
[2018-11-08] MEDS: Mometasone/Formoter 200/5 MDI INH SCH ×2 (09:23→21:05)
[2018-11-08] MEDS ORDERED: Bisacodyl SUPP* 10 MG SUPP PR ONE (09:53)
[2018-11-08] MEDS: Ondansetron ODT TAB* 4 MG PO PRN (10:00)
[2018-11-08] MEDS ORDERED: Magnesium CITRATE* 300 ML BTL PO PRN (10:01)
--- NOTE | 2018-11-08 10:01 | PN ---
Progress Note Date of Service: 11/08/18 Note: MERVIN MCRAE was visited. Nursing and therapy notes read and reviewed. No chest pain or shortness of breath. She has some LLQ discomfort this morning and has been nauseous with some vomiting since getting miralax yesterday. Has not had a BM in 3 days. She thinks she is having flatus. She did eat 2 cookies last night. Did not have breakfast. Caryl says has been eating until miralax. Current Medications: Active Medications Generic Name Dose Route Start Last Admin Trade Name Freq PRN Reason Stop Dose Admin Acetaminophen 650 mg 10/31/18 11:30 11/06/18 19:50 Tylenol Tab* PO 650 mg Q6H PRN Administration FEVER/PAIN Aspirin 81 mg 11/01/18 09:00 11/08/18 07:51 Aspirin Ec Tab* PO 81 mg DAILY EDVIN Administration Bisacodyl 10 mg 11/08/18 09:53 Dulcolax Supp* [place] 11/08/18 09:54 ONCE ONE Carbidopa/Levodopa 3 tab 11/05/18 13:00 11/08/18 07:51 Sinemet 25/100 Tab(*) PO 3 tab 0730,1300,1730 EDVIN Administration Clonazepam 0.5 mg 11/04/18 07:30 11/08/18 07:52 Klonopin Tab(*) PO 0.5 mg 0730,1300,1730 EDVIN Administration Clonazepam 0.5 mg 11/03/18 21:52 11/03/18 22:23 Klonopin Tab(*) PO 0.5 mg Q24H PRN Administration ANXIETY Cyanocobalamin 500 mcg 10/31/18 21:00 11/08/18 07:51 Vitamin B12 Tab* PO 500 mcg BID EDVIN Administration Docusate Sodium 100 mg 10/31/18 21:00 11/08/18 07:51 Colace Cap* PO 100 mg BID EDVIN Administration Heparin Sodium (Porcine) 5,000 units 10/31/18 14:00 11/08/18 05:47 Heparin Vial(*) SUBCUT 5,000 units Q8HR EDVIN Administration Lamotrigine 100 mg 10/31/18 21:00 11/08/18 07:51 Lamictal Tab(*) PO 100 mg BID EDVIN Administration [place] Carbonate 300 mg 10/31/18 21:00 11/08/18 07:51 [place] Carbonate Tab* PO 300 mg BID EDVIN Administration Mirtazapine 15 mg 11/03/18 21:00 11/07/18 21:54 Remeron Tab* PO 15 mg BEDTIME EDVIN Administration Mometasone Furoate/Formoterol Fumar 2 puff 10/31/18 21:00 11/08/18 09:23 Dulera 200/5 Mdi* INH 2 puff BID EDVIN Administration Pto: ([place] 1 Cap) 1 cap 11/04/18 12:00 11/07/18 12:07 PO 1 cap 1200 EDVIN Administration Pto: (Probiotic 10 1 cap 11/04/18 12:00 11/07/18 12:08 Cap) PO 1 cap 1200 EDVIN Administration Ondansetron HCl 4 mg 11/01/18 09:00 11/05/18 06:14 Zofran Odt Tab* PO 4 mg Q4H PRN Administration NAUSEA Pantoprazole Sodium 40 mg 11/01/18 09:00 11/08/18 07:51 Protonix Tab* PO 40 mg DAILY EDVIN Administration Polyethylene Glycol/Electrolytes 17 gm 11/08/18 14:00 Miralax* PO DAILY@1400 EDVIN Propranolol HCl 10 mg 11/01/18 09:00 11/08/18 07:52 Inderal Tab* PO 10 mg DAILY EDVIN Administration Senna 2 tab 11/03/18 21:00 11/07/18 21:53 Senokot Tab* PO 2 tab BEDTIME EDVIN Administration Sertraline HCl 150 mg 11/01/18 09:00 11/08/18 07:51 Zoloft* PO 150 mg DAILY EDVIN Administration Tamsulosin HCl 0.4 mg 10/31/18 21:00 11/07/18 21:54 Flomax Cap* PO 0.4 mg BEDTIME EDVIN Administration Tiotropium [place] 1 cap 11/01/18 09:00 11/08/18 09:23 Spiriva Cap.Inh* INH 1 cap DAILY EDVIN Administration Vital Signs: Vital Signs Temp Pulse Resp BP Pulse Ox 98.0 F 74 17 131/76 89 11/08/18 05:45 11/08/18 05:45 11/08/18 07:52 11/08/18 05:45 11/08/18 05:45 Lab Results: Laboratory Results - last 24 hr 11/08/18 11/08/18 06:05 06:05 WBC 7.6 RBC 4.17 Hgb 13.1 Hct 40 MCV 95 MCH 32 H MCHC 33 RDW 13 Plt Count 330 MPV 10.4 Neut % (Auto) 65.5 Lymph % (Auto) 21.3 [place] % (Auto) 7.3 Eos % (Auto) 5.2 Baso % (Auto) 0.7 Absolute Neuts (auto) 5.0 Absolute Lymphs (auto) 1.6 Absolute Monos (auto) 0.6 Absolute Eos (auto) 0.4 Absolute Basos (auto) 0.1 Absolute Nucleated RBC 0.0 Nucleated RBC % 0.1 Sodium 139 Potassium 3.5 Chloride 104 Carbon Dioxide 27 Anion Gap 8 BUN 13 Creatinine 0.85 Est GFR ( Amer) 79.8 Est GFR (Non-Af Amer) 65.9 BUN/Creatinine Ratio 15.3 Glucose 115 H Calcium 12.0 H Total Bilirubin 0.40 AST 8 L ALT 3 L Alkaline Phosphatase 111 H Total Protein 6.3 L Albumin 4.0 Globulin 2.3 Albumin/Globulin Ratio 1.7 Exam: GENERAL: No acute distress. alert and appropriate. LUNGS: Clear to auscultation bilaterally with decreased breath sounds c/w h/o copd HEART: regular rate and rhythm ABDOMEN: Soft, +BS, non-distended with some LLQ discomfort. No peritoneal signs. EXTREMITIES: pulses intact NEUROLOGIC: tremors especially in RUE. Motor 5/5 BUE with normal sensation. Assessment/Plan: 1. Parkinson's Disease: Continue Sinemet 2. Bipolar Disease: [place]/Lamictal 3. Nausea: Zofran prn. Follow 4. Urethral Stricture: Cap[place]an out. Able to void 5. COPD: Spiriva/Dulera 6. DVT Prophylaxis: Heparin 7. Anxiety: Scheduled Klonopin 8. Advance Directives: Full code. is surrogate decision maker 9. Constipation: Change miralax to mag citrate but given nausea, try dulcolax suppository 11/08/18 09:59 11/08/18 10:00
[2018-11-08] MEDS: Acetaminophen TAB* 325 MG PO PRN ×2 (11:36→17:52)
[2018-11-08] MEDS: ELLURA PO SCH (11:51)
[2018-11-08] MEDS: PROBIOTIC PO SCH (11:51)
[2018-11-08] MEDS: Senna TAB 8.6 mg* TAB PO SCH (21:30)
[2018-11-08] MEDS: Tamsulosin CAP* 0.4 MG PO SCH (21:31)
[2018-11-08] MEDS: Mirtazapine TAB* 15 MG PO SCH (21:31)
[2018-11-09] MEDS: Heparin VIAL(*) 5000 UNITS/ML VIAL (FIVE THOUSAND) SUBCUT SCH ×3 (05:40→21:09)
[2018-11-09] MEDS: Mometasone/Formoter 200/5 MDI INH SCH ×2 (08:20→20:37)
[2018-11-09] MEDS: Tiotropium CAP.INH* CAP.INH/18 MCG (USE ORDER SET !) INH SCH (08:20)
[2018-11-09] MEDS: Carbidopa/Levodop 25/100 MG TAB(*) PO SCH ×3 (09:12→17:40)
[2018-11-09] MEDS: clonazePAM TAB(*) 0.5 MG PO SCH ×3 (09:12→17:35)
--- NOTE | 2018-11-09 09:51 | PN ---
Progress Note Date of Service: 11/09/18 Note: MERVIN MCRAE was visited. Nursing and therapy notes read and reviewed. No chest pain, shortness of breath or abdominal pain. Abdominal pain better after BM yesterday with suppository. Nausea resolved. Ate breakfast. Had headache yesterday but that is gone now. states she uses 400mg ibuprofen at home prn headache. She was put on O2 this morning for O2 sat 85%, but she does not like nasal canula as is makes her feel congested. Sometimes uses nasal spray at home. Current Medications: Active Medications Generic Name Dose Route Start Last Admin Trade Name Freq PRN Reason Stop Dose Admin Acetaminophen 650 mg 10/31/18 11:30 11/08/18 17:52 Tylenol Tab* PO 650 mg Q6H PRN Administration FEVER/PAIN Aspirin 81 mg 11/01/18 09:00 11/08/18 07:51 Aspirin Ec Tab* PO 81 mg DAILY EDVIN Administration Carbidopa/Levodopa 3 tab 11/05/18 13:00 11/09/18 09:12 Sinemet 25/100 Tab(*) PO 3 tab 0730,1300,1730 EDVIN Administration Clonazepam 0.5 mg 11/04/18 07:30 11/09/18 09:12 Klonopin Tab(*) PO 0.5 mg 0730,1300,1730 EDVIN Administration Clonazepam 0.5 mg 11/03/18 21:52 11/03/18 22:23 Klonopin Tab(*) PO 0.5 mg Q24H PRN Administration ANXIETY Cyanocobalamin 500 mcg 10/31/18 21:00 11/08/18 21:31 Vitamin B12 Tab* PO 500 mcg BID EDVIN Administration Docusate Sodium 100 mg 10/31/18 21:00 11/08/18 21:30 Colace Cap* PO 100 mg BID EDVIN Administration Heparin Sodium (Porcine) 5,000 units 10/31/18 14:00 11/09/18 05:40 Heparin Vial(*) SUBCUT 5,000 units Q8HR EDVIN Administration Lamotrigine 100 mg 10/31/18 21:00 11/08/18 21:31 Lamictal Tab(*) PO 100 mg BID EDVIN Administration [place] Carbonate 300 mg 10/31/18 21:00 11/08/18 21:30 [place] Carbonate Tab* PO 300 mg BID EDVIN Administration Magnesium Citrate 150 ml 11/08/18 10:01 Citrate Of Magnesia* PO DAILY PRN constipation Mirtazapine 15 mg 11/03/18 21:00 11/08/18 21:31 Remeron Tab* PO 15 mg BEDTIME EDVIN Administration Mometasone Furoate/Formoterol Fumar 2 puff 10/31/18 21:00 11/09/18 08:20 Dulera 200/5 Mdi* INH 2 puff BID EDVIN Administration Pto: ([place] 1 Cap) 1 cap 11/04/18 12:00 11/08/18 11:51 PO Not Given 1200 EDVIN Pto: (Probiotic 10 1 cap 11/04/18 12:00 11/08/18 11:51 Cap) PO Not Given 1200 EDVIN Ondansetron HCl 4 mg 11/01/18 09:00 11/08/18 10:00 Zofran Odt Tab* PO 4 mg Q4H PRN Administration NAUSEA Pantoprazole Sodium 40 mg 11/01/18 09:00 11/08/18 07:51 Protonix Tab* PO 40 mg DAILY EDVIN Administration Propranolol HCl 10 mg 11/01/18 09:00 11/08/18 07:52 Inderal Tab* PO 10 mg DAILY EDVIN Administration Senna 2 tab 11/03/18 21:00 11/08/18 21:30 Senokot Tab* PO 2 tab BEDTIME EDVIN Administration Sertraline HCl 150 mg 11/01/18 09:00 11/08/18 07:51 Zoloft* PO 150 mg DAILY EDVIN Administration Tamsulosin HCl 0.4 mg 10/31/18 21:00 11/08/18 21:31 Flomax Cap* PO 0.4 mg BEDTIME EDVIN Administration Tiotropium [place] 1 cap 11/01/18 09:00 11/09/18 08:20 Spiriva Cap.Inh* INH 1 cap DAILY EDVIN Administration Vital Signs: Vital Signs Temp Pulse Resp BP Pulse Ox 98 F 96 18 113/56 85 11/09/18 05:43 11/09/18 08:25 11/09/18 09:12 11/09/18 05:43 11/09/18 08:25 Exam: GENERAL: No acute distress. alert and appropriate. LUNGS: Clear to auscultation bilaterally with decreased breath sounds c/w h/o copd HEART: regular rate and rhythm ABDOMEN: Soft, +BS, non-distended, no tenderness. No peritoneal signs. EXTREMITIES: pulses intact NEUROLOGIC: Motor 5/5 BLE with normal sensation. Assessment/Plan: 1. Parkinson's Disease: Continue Sinemet 2. Bipolar Disease: [place]/Lamictal 3. Nausea: Zofran prn. Follow 4. Urethral Stricture: Capellan out. Able to void 5. COPD: Spiriva/Dulera. Oxygen prn. Will order saline ns prn congestion. 6. DVT Prophylaxis: Heparin 7. Anxiety: Scheduled Klonopin 8. Advance Directives: Full code. is surrogate decision maker 9. Constipation: Miralax caused nausea. Has mag citrate prn and dulcolax suppository prn. Had BM 11/08. 10. Intermittent headaches: allow ibuprofen prn. 11/09/18 09:49
[2018-11-09] MEDS: Aspirin EC TAB* 81 MG TAB.EC PO SCH (10:39)
[2018-11-09] MEDS: Pantoprazole TAB * 40 MG TAB PO SCH (10:39)
[2018-11-09] MEDS: Propranolol TAB* 10 MG PO SCH (10:39)
[2018-11-09] MEDS: Cyanocobalamin TAB* 500 MCG PO SCH ×2 (10:39→21:04)
[2018-11-09] MEDS: Lithium Carbonate TAB* 300 MG PO SCH ×2 (10:39→21:04)
[2018-11-09] MEDS: lamoTRIgine TAB(*) 100 MG PO SCH ×2 (10:39→21:03)
[2018-11-09] MEDS: Sertraline* 100 MG TAB PO SCH (10:41)
[2018-11-09] MEDS: Docusate CAP* 100 MG PO SCH ×2 (10:46→21:04)
[2018-11-09] MEDS: ELLURA PO SCH (12:06)
[2018-11-09] MEDS: PROBIOTIC PO SCH (12:06)
[2018-11-09] MEDS: Saline NASAL SPRAY 0.65%* BTL BOTH NARES PRN (14:55)
[2018-11-09] MEDS: Ibuprofen TAB* 400 MG PO PRN (16:05)
[2018-11-09] MEDS: Senna TAB 8.6 mg* TAB PO SCH (21:03)
[2018-11-09] MEDS: Mirtazapine TAB* 15 MG PO SCH (21:04)
[2018-11-09] MEDS: Tamsulosin CAP* 0.4 MG PO SCH (21:04)
[2018-11-10] MEDS: Heparin VIAL(*) 5000 UNITS/ML VIAL (FIVE THOUSAND) SUBCUT SCH ×3 (05:41→21:41)
[2018-11-10] MEDS: clonazePAM TAB(*) 0.5 MG PO SCH ×3 (08:07→17:58)
[2018-11-10] MEDS: Carbidopa/Levodop 25/100 MG TAB(*) PO SCH ×3 (08:08→17:58)
[2018-11-10] MEDS: Tiotropium CAP.INH* CAP.INH/18 MCG (USE ORDER SET !) INH SCH (09:08)
[2018-11-10] MEDS: Mometasone/Formoter 200/5 MDI INH SCH ×2 (09:09→20:26)
[2018-11-10 09:38] LABS: Urine Appearance Cloudy; Urine Bacteria Absent (Absent); Urine Bilirubin Negative (Negative); Urine Blood Negative (Negative); Urine Color Yellow; Urine Glucose Negative (Negative); Urine Ketones Trace (Negative); Urine Nitrite Negative (Negative); Urine Protein Negative (Negative); Urine Red Blood Cell 1+(3-5/hpf) (Absent); Urine Specific Gravity 1.011 (1.010-1.030); Urine Urobilinogen Negative (Negative); Urine White Blood Cell 3+(>20/hpf) (Absent)
[2018-11-10] MEDS: Propranolol TAB* 10 MG PO SCH (10:01)
[2018-11-10] MEDS: Aspirin EC TAB* 81 MG TAB.EC PO SCH (10:01)
[2018-11-10] MEDS: lamoTRIgine TAB(*) 100 MG PO SCH ×2 (10:01→21:37)
[2018-11-10] MEDS: Lithium Carbonate TAB* 300 MG PO SCH ×2 (10:01→21:32)
[2018-11-10] MEDS: Cyanocobalamin TAB* 500 MCG PO SCH ×2 (10:01→21:33)
[2018-11-10] MEDS: Docusate CAP* 100 MG PO SCH ×2 (10:01→21:31)
[2018-11-10] MEDS: Pantoprazole TAB * 40 MG TAB PO SCH (10:01)
[2018-11-10] MEDS: Sertraline* 100 MG TAB PO SCH (10:02)
[2018-11-10] MEDS: Saline NASAL SPRAY 0.65%* BTL BOTH NARES PRN (10:10)
--- NOTE | 2018-11-10 10:43 | PN ---
Progress Note Date of Service: 11/10/18 Note: MERVIN MCRAE was visited. Nursing notes read and reviewed. Unable to urinate last 10hr despite urge. Her says she seems more confused which is how she has appeared with UTIs in the past. Using O2 last 2 nights. No chest pain or shortness of breath. Current Medications: Active Medications Generic Name Dose Route Start Last Admin Trade Name Freq PRN Reason Stop Dose Admin Acetaminophen 650 mg 10/31/18 11:30 11/08/18 17:52 Tylenol Tab* PO 650 mg Q6H PRN Administration FEVER/PAIN Aspirin 81 mg 11/01/18 09:00 11/10/18 10:01 Aspirin Ec Tab* PO 81 mg DAILY EDVIN Administration Carbidopa/Levodopa 3 tab 11/05/18 13:00 11/10/18 08:08 Sinemet 25/100 Tab(*) PO 3 tab 0730,1300,1730 EDVIN Administration Ciprofloxacin 500 mg 11/10/18 11:00 Cipro Tab* PO Q12HR EDVIN Protocol Clonazepam 0.5 mg 11/04/18 07:30 11/10/18 08:07 Klonopin Tab(*) PO 0.5 mg 0730,1300,1730 EDVIN Administration Clonazepam 0.5 mg 11/03/18 21:52 11/03/18 22:23 Klonopin Tab(*) PO 0.5 mg Q24H PRN Administration ANXIETY Cyanocobalamin 500 mcg 10/31/18 21:00 11/10/18 10:01 Vitamin B12 Tab* PO 500 mcg BID EDVIN Administration Docusate Sodium 100 mg 10/31/18 21:00 11/10/18 10:01 Colace Cap* PO 100 mg BID EDVIN Administration Heparin Sodium (Porcine) 5,000 units 10/31/18 14:00 11/10/18 05:41 Heparin Vial(*) SUBCUT 5,000 units Q8HR EDVIN Administration Ibuprofen 400 mg 11/09/18 09:51 11/09/18 16:05 Motrin Tab* PO 400 mg Q6H PRN Administration HEADACHE Lamotrigine 100 mg 10/31/18 21:00 11/10/18 10:01 Lamictal Tab(*) PO 100 mg BID EDVIN Administration [place] Carbonate 300 mg 10/31/18 21:00 11/10/18 10:01 [place] Carbonate Tab* PO 300 mg BID EDVIN Administration Magnesium Citrate 150 ml 11/08/18 10:01 Citrate Of Magnesia* PO DAILY PRN constipation Mirtazapine 15 mg 11/03/18 21:00 11/09/18 21:04 Remeron Tab* PO 15 mg BEDTIME EDVIN Administration Mometasone Furoate/Formoterol Fumar 2 puff 10/31/18 21:00 11/10/18 09:09 Dulera 200/5 Mdi* INH 2 puff BID EDVIN Administration Pto: ([place] 1 Cap) 1 cap 11/04/18 12:00 11/09/18 12:06 PO 1 cap 1200 EDVIN Administration Pto: (Probiotic 10 1 cap 11/04/18 12:00 11/09/18 12:06 Cap) PO 1 cap 1200 EDVIN Administration Ondansetron HCl 4 mg 11/01/18 09:00 11/08/18 10:00 Zofran Odt Tab* PO 4 mg Q4H PRN Administration NAUSEA Pantoprazole Sodium 40 mg 11/01/18 09:00 11/10/18 10:01 Protonix Tab* PO 40 mg DAILY EDVIN Administration Propranolol HCl 10 mg 11/01/18 09:00 11/10/18 10:01 Inderal Tab* PO 10 mg DAILY EDVIN Administration Senna 2 tab 11/03/18 21:00 11/09/18 21:03 Senokot Tab* PO 2 tab BEDTIME EDVIN Administration Sertraline HCl 150 mg 11/01/18 09:00 11/10/18 10:02 Zoloft* PO 150 mg DAILY EDVIN Administration Sodium Chloride 1 spray 11/09/18 09:51 11/10/18 10:10 Sodium Chloride 0.65% Nasal [place]* BOTH NARES 1 spray Q4H PRN Administration CONGESTION Tamsulosin HCl 0.4 mg 10/31/18 21:00 11/09/18 21:04 Flomax Cap* PO 0.4 mg BEDTIME EDVIN Administration Tiotropium [place] 1 cap 11/01/18 09:00 11/10/18 09:08 Spiriva Cap.Inh* INH 1 cap DAILY EDVIN Administration Vital Signs: Vital Signs Temp Pulse Resp BP Pulse Ox 97.7 F 63 18 112/69 97 11/10/18 05:40 11/10/18 05:40 11/10/18 08:07 11/10/18 05:40 11/10/18 05:40 Lab Results: Laboratory Results - last 24 hr 11/10/18 09:05 Urine Color Yellow Urine Appearance Cloudy Urine pH 7.0 Ur Specific [place] 1.011 Urine Protein Negative Urine Ketones Trace A Urine Blood Negative Urine Nitrate Negative Urine Bilirubin Negative Urine Urobilinogen Negative Ur Leukocyte Esterase 3+ A Urine WBC (Auto) 3+(>20/hpf) A Urine RBC (Auto) 1+(3-5/hpf) A Urine Bacteria Absent Urine Glucose Negative Exam: GENERAL: No acute distress. alert and appropriate. LUNGS: Clear to auscultation bilaterally with decreased breath sounds c/w h/o copd HEART: regular rate and rhythm ABDOMEN: Soft, +BS, non-distended, no tenderness. No peritoneal signs. To percussion bladder seemed full EXTREMITIES: pulses intact NEUROLOGIC: Motor 5/5 BLE with normal sensation. Bladder scan showed >500ml Assessment/Plan: 1. Parkinson's Disease: Continue Sinemet 2. Bipolar Disease: [place]/Lamictal 3. Nausea: Zofran prn. Follow 4. Urethral Stricture and concern for another UTI: Start cipro 500mg q12h while waiting for Ucx results. Capellan put back in. Will need f/u with Dr. Kim. 5. COPD: [place]/Dulera. Oxygen prn. Given confusion and needing O2 last 2 nights check CXR. saline ns prn congestion. 6. DVT Prophylaxis: Heparin 7. Anxiety: Scheduled Klonopin 8. Advance Directives: Full code. is surrogate decision maker 9. Constipation: Miralax caused nausea. Has mag citrate prn and dulcolax suppository prn. Had BM 11/08. 10. Intermittent headaches: allow ibuprofen prn. 11/10/18 10:41
[2018-11-10] MEDS: Ciprofloxacin TAB* 500 MG PO SCH ×2 (12:15→21:34)
[2018-11-10] MEDS: ELLURA PO SCH (12:16)
[2018-11-10] MEDS: PROBIOTIC PO SCH (12:16)
[2018-11-10] MEDS: Ibuprofen TAB* 400 MG PO PRN (18:37)
[2018-11-10] MEDS: Senna TAB 8.6 mg* TAB PO SCH (21:35)
[2018-11-10] MEDS: Mirtazapine TAB* 15 MG PO SCH (21:38)
[2018-11-10] MEDS: Tamsulosin CAP* 0.4 MG PO SCH (21:39)
[2018-11-11] MEDS: Heparin VIAL(*) 5000 UNITS/ML VIAL (FIVE THOUSAND) SUBCUT SCH ×3 (05:36→21:01)
[2018-11-11] MEDS: Mometasone/Formoter 200/5 MDI INH SCH ×2 (08:05→21:03)
[2018-11-11] MEDS: Tiotropium CAP.INH* CAP.INH/18 MCG (USE ORDER SET !) INH SCH (08:05)
[2018-11-11] MEDS: Carbidopa/Levodop 25/100 MG TAB(*) PO SCH ×3 (10:22→17:23)
[2018-11-11] MEDS: clonazePAM TAB(*) 0.5 MG PO SCH ×3 (10:23→17:24)
[2018-11-11] MEDS: Aspirin EC TAB* 81 MG TAB.EC PO SCH (10:23)
[2018-11-11] MEDS: Ciprofloxacin TAB* 500 MG PO SCH ×2 (10:23→21:01)
[2018-11-11] MEDS: Pantoprazole TAB * 40 MG TAB PO SCH (10:24)
[2018-11-11] MEDS: Sertraline* 100 MG TAB PO SCH (10:24)
[2018-11-11] MEDS: Propranolol TAB* 10 MG PO SCH (10:24)
[2018-11-11] MEDS: Cyanocobalamin TAB* 500 MCG PO SCH ×2 (10:24→21:02)
[2018-11-11] MEDS: Docusate CAP* 100 MG PO SCH ×2 (10:24→21:02)
[2018-11-11] MEDS: Lithium Carbonate TAB* 300 MG PO SCH ×2 (10:24→21:02)
[2018-11-11] MEDS: lamoTRIgine TAB(*) 100 MG PO SCH ×2 (10:24→21:02)
[2018-11-11] MEDS: PROBIOTIC PO SCH (13:03)
[2018-11-11] MEDS: ELLURA PO SCH (13:03)
[2018-11-11] MEDS: Acetaminophen TAB* 325 MG PO PRN (14:24)
[2018-11-11] MEDS: Ibuprofen TAB* 400 MG PO PRN (17:33)
[2018-11-11] MEDS: Saline NASAL SPRAY 0.65%* BTL BOTH NARES PRN (18:14)
--- NOTE | 2018-11-11 19:06 | PN ---
Progress Note Date of Service: 11/11/18 Note: MERVIN MCRAE was visited. Therapy notes read and reviewed. She has a new UTI , urine culture grew out >100K Enterococcus faecalis. On Cipro. Urine slightly dark. Ate her whole dinner tonight Current Medications: Active Medications Generic Name Dose Route Start Last Admin Trade Name Freq PRN Reason Stop Dose Admin Acetaminophen 650 mg 10/31/18 11:30 11/11/18 14:24 Tylenol Tab* PO 650 mg Q6H PRN Administration FEVER/PAIN Aspirin 81 mg 11/01/18 09:00 11/11/18 10:23 Aspirin Ec Tab* PO 81 mg DAILY EDVIN Administration Carbidopa/Levodopa 3 tab 11/05/18 13:00 11/11/18 17:23 Sinemet 25/100 Tab(*) PO 3 tab 0730,1300,1730 EDVIN Administration Ciprofloxacin 500 mg 11/10/18 11:00 11/11/18 10:23 Cipro Tab* PO 500 mg Q12HR EDVIN Administration Protocol Clonazepam 0.5 mg 11/04/18 07:30 11/11/18 17:24 Klonopin Tab(*) PO 0.5 mg 0730,1300,1730 EDVIN Administration Clonazepam 0.5 mg 11/03/18 21:52 11/03/18 22:23 Klonopin Tab(*) PO 0.5 mg Q24H PRN Administration ANXIETY Cyanocobalamin 500 mcg 10/31/18 21:00 11/11/18 10:24 Vitamin B12 Tab* PO 500 mcg BID EDVIN Administration Docusate Sodium 100 mg 10/31/18 21:00 11/11/18 10:24 Colace Cap* PO 100 mg BID EDVIN Administration Heparin Sodium (Porcine) 5,000 units 10/31/18 14:00 11/11/18 13:13 Heparin Vial(*) SUBCUT 5,000 units Q8HR EDVIN Administration Ibuprofen 400 mg 11/09/18 09:51 11/11/18 17:33 Motrin Tab* PO 400 mg Q6H PRN Administration HEADACHE Lamotrigine 100 mg 10/31/18 21:00 11/11/18 10:24 Lamictal Tab(*) PO 100 mg BID EDVIN Administration [place] Carbonate 300 mg 10/31/18 21:00 11/11/18 10:24 [place] Carbonate Tab* PO 300 mg BID EDVIN Administration Magnesium Citrate 150 ml 11/08/18 10:01 Citrate Of Magnesia* PO DAILY PRN constipation Mirtazapine 15 mg 11/03/18 21:00 11/10/18 21:38 Remeron Tab* PO 15 mg BEDTIME EDVIN Administration Mometasone Furoate/Formoterol Fumar 2 puff 10/31/18 21:00 11/11/18 08:05 Dulera 200/5 Mdi* INH 2 puff BID EDVIN Administration Pto: ([place] 1 Cap) 1 cap 11/04/18 12:00 11/11/18 13:03 PO 1 cap 1200 EDVIN Administration Pto: (Probiotic 10 1 cap 11/04/18 12:00 11/11/18 13:03 Cap) PO 1 cap 1200 EDVIN Administration Ondansetron HCl 4 mg 11/01/18 09:00 11/08/18 10:00 Zofran Odt Tab* PO 4 mg Q4H PRN Administration NAUSEA Pantoprazole Sodium 40 mg 11/01/18 09:00 11/11/18 10:24 Protonix Tab* PO 40 mg DAILY EDVIN Administration Propranolol HCl 10 mg 11/01/18 09:00 11/11/18 10:24 Inderal Tab* PO 10 mg DAILY EDVIN Administration Senna 2 tab 11/03/18 21:00 11/10/18 21:35 Senokot Tab* PO 2 tab BEDTIME EDVIN Administration Sertraline HCl 150 mg 11/01/18 09:00 11/11/18 10:24 Zoloft* PO 150 mg DAILY EDVIN Administration Sodium Chloride 1 spray 11/09/18 09:51 11/11/18 18:14 Sodium Chloride 0.65% Nasal [place]* BOTH NARES 1 spray Q4H PRN Administration CONGESTION Tamsulosin HCl 0.4 mg 10/31/18 21:00 11/10/18 21:39 Flomax Cap* PO 0.4 mg BEDTIME EDVIN Administration Tiotropium [place] 1 cap 11/01/18 09:00 11/11/18 08:05 Spiriva Cap.Inh* INH 1 cap DAILY EDVIN Administration Vital Signs: Vital Signs Temp Pulse Resp BP Pulse Ox 97.5 F 62 16 104/60 94 11/11/18 16:18 11/11/18 16:18 11/11/18 18:11 11/11/18 16:18 11/11/18 16:18 Exam: GENERAL: No acute distress. alert and appropriate. LUNGS: Clear to auscultation bilaterally with decreased breath sounds HEART: regular rate and rhythm ABDOMEN: Soft, +BS, non-distended, no tenderness. EXTREMITIES: pulses intact NEUROLOGIC: Motor 5/5 BLE with normal sensation. Assessment/Plan: 1. Parkinson's Disease: Continue Sinemet 2. Bipolar Disease: [place]/Lamictal 3. Nausea: Zofran prn. Follow 4. Urinary Tract Infection: Cipro 500mg q12h day 2. May lower to 250 Q 12. Capellan put back in. Will need f/u with Dr. Kim. 5. COPD: Spiriva/Dulera. Oxygen prn. Saline ns prn congestion. 6. DVT Prophylaxis: Heparin 7. Anxiety: Scheduled Klonopin 8. Advance Directives: Full code. is surrogate decision maker 9. Constipation: Miralax caused nausea. Has mag citrate prn and dulcolax suppository prn. . 10. Intermittent headaches: allow ibuprofen prn. 11/11/18 19:07
[2018-11-11] MEDS: Tamsulosin CAP* 0.4 MG PO SCH (21:02)
[2018-11-11] MEDS: Senna TAB 8.6 mg* TAB PO SCH (21:02)
[2018-11-11] MEDS: Mirtazapine TAB* 15 MG PO SCH (21:02)
[2018-11-12] MEDS: Heparin VIAL(*) 5000 UNITS/ML VIAL (FIVE THOUSAND) SUBCUT SCH ×4 (05:34→21:20)
[2018-11-12] MEDS: Ondansetron ODT TAB* 4 MG PO PRN (07:59)
[2018-11-12] MEDS: Tiotropium CAP.INH* CAP.INH/18 MCG (USE ORDER SET !) INH SCH (08:31)
[2018-11-12] MEDS: Mometasone/Formoter 200/5 MDI INH SCH ×2 (08:35→21:17)
[2018-11-12] MEDS: Aspirin EC TAB* 81 MG TAB.EC PO SCH (08:45)
[2018-11-12] MEDS: Ciprofloxacin TAB* 500 MG PO SCH (08:45)
[2018-11-12] MEDS: Carbidopa/Levodop 25/100 MG TAB(*) PO SCH ×3 (08:45→17:47)
[2018-11-12] MEDS: clonazePAM TAB(*) 0.5 MG PO SCH ×3 (08:45→17:47)
[2018-11-12] MEDS: Cyanocobalamin TAB* 500 MCG PO SCH ×2 (08:45→21:16)
[2018-11-12] MEDS: Propranolol TAB* 10 MG PO SCH (08:46)
[2018-11-12] MEDS: Docusate CAP* 100 MG PO SCH ×2 (08:46→21:16)
[2018-11-12] MEDS: Lithium Carbonate TAB* 300 MG PO SCH ×2 (08:46→21:17)
[2018-11-12] MEDS: lamoTRIgine TAB(*) 100 MG PO SCH ×2 (08:46→21:17)
[2018-11-12] MEDS: Pantoprazole TAB * 40 MG TAB PO SCH (08:46)
[2018-11-12] MEDS: Sertraline* 100 MG TAB PO SCH (08:47)
--- NOTE | 2018-11-12 12:52 | PMRUTEAM ---
PMRU: Team Meeting Current Status: Nursing: Current Status Skin Deviations [Left Buttocks Other ] Skin Deviations [Right Skin Tear Buttocks] Skin Deviations [Right Ear] Other Skin Deviations [Bilateral Other Buttocks] Skin Deviations [Coccyx] Pressure Ulcer Skin Deviation Description [ peeling skin Left Buttocks] Skin Deviation Description [ small reddened area - cream applied Right Buttocks] Skin Deviation Description [ redened, healing Right Ear] Skin Deviation Description [ erythema; lotion applied; T&P, z-slider, air Bilateral Buttocks] mattress, roho cushion Skin Deviation Description [ Red area on left and right buttock cheeks with Coccyx] areas of peeling skin. Redness does not apperar to be changed from 11/03. Barrier cream applied. Z- slider in bed to reduce shearing when moving up un bed. Seat cushion in wheelchair when patient OOB. Bladder Current Status Espinoza in place - draining adequete amts of urine. Pt continues to feel the urge to void Bowel Current Status Continent - 1 assist with toileting Nutrition Current Status Eats some of most meals Medication Current Status Needs reminders with medications 1 at a time Physical Therapy: Current Status Bed Mobility Assistance Supervision Transfer Mobility Assistance Contact Guard Assist Transfer/Bed Mobility Rolling Walker Recommended Devices Ambulation Assistance Contact Guard Assist Ambulation Assistive Devices Rolling Walker Number of Feet Patient 1x150' Ambulated Ambulation Comment small shuffling steps Stairs Assistance Supervision,Contact Guard Assist Stairs Recommended Devices Two Rails Number of Stairs 2x5 (10) Objective Comments step through pattern ascend/descending stairs with assist to manage O2 tubing and catheter Occupational Therapy: Current Status Upper Body Dressing Max Asst Lower Body Dressing Max Asst Bathing Mod Assist Toileting Contact Guard Assist,Min Assist Toilet Transfer Contact Guard Assist Shower Transfer Min Assist Eating Supervision Rec Therapy: Current Status Summary of Assessment and Recreation Assessment completed and pt. is aware Clinical Impression services. Pt. is with aides but leisure visits will continue. Provided pt. with magazines at her request. Pt. has been engaged in pet therapy as well. Treatment Goals Pt. will engage in leisure activities while on the unit. Treatment Plan Provide recreation therapy and encourage involvement. Social Work: Current Status Discharge Plan return home with home care svs and family support Potential for Family Training pt's family are involved and supportive Anticipated Discharge Home Destination Discharge With home care svs and family support Nutrition: Current Status Monitoring per documented po intake, her appetite had been improving as of 4-5 days ago. Nausea had resolved , but is now returning (Zofran given 11/08 and again this a.m.). She has a UTI; Cipro day 3 of 7 . Intake remains variable, despite encouragement. She enjoys Frosted Flakes, blueberries, and cottage cheese w/fruit. Daily 3pm snack offered ( cottage cheese w/pineapple). Aide (Flaquita) assisting w/pt's meal selections as appropriate. Will follow up for fluid preferences, as fluid intake needs to be encouraged, as well as overall intake. Speech: Current Status Assessment Patient has not progressed during one-week trial of speech therapy for cognitive-communication deficits. ECHO TECHNOLOGIST recommends discontinue daily speech therapy. ECHO TECHNOLOGIST will remain involved as need to participat ein patient and family education and to consult regarding ways for caregivers to modify their communication to improve patient safety. ECHO TECHNOLOGIST has provided verbal and printed instruction to patient and caregivers in techniques for recalling new information and word-finding. Patient has not demonstrated the ability to use compensatory strategies to improve recall or word- finding. ECHO TECHNOLOGIST consulted rehabilitation therapists and nursing regarding effective communication techniques. Patient requires supervision or assstance and can safely follow simple, one-step verbal directions given moderate visual cueing. Goals: Physical Therapy: Initial Goals Bed Mobility Assistance Supervision Transfer Mobility Assistance Supervision Transfer/Bed Mobility Rolling Walker Recommended Devices Ambulation Supervision Ambulation Recommended Devices Rolling Walker Ambulation Distance 150 Stairs Assistance Supervision Stair Recommended Devices One Rail Number of Stairs flight Home Exercise Program Supervision Assistance Physical Therapy: Updated Goals Bed Mobility Assistance Supervision Transfer Mobility Assistance Contact Guard Assist Transfer/Bed Mobility Rolling Walker Recommended Devices Ambulation Assistance Contact Guard Assist Ambulation Assistive Devices Rolling Walker Ambulation Distance (ft) 150 Stairs Assistance Contact Guard Assist Stairs Recommended Devices One Rail Number of Stairs flight Home Exercise Program Supervision Assistance Occupational Therapy: Initial Goals Goals to be Completed in (Days 14-21 days ) Upper Body Bathing Routine Supervision/Set Up Lower Body Bathing Routine Minimal Contact Assist Upper Body Dressing Routine Minimal Contact Assist Lower Body Dressing Routine Minimal Contact Assist Toilet Hygeine and Clothing Minimal Contact Assist Management Routine Toilet Transfer Routine Supervision/Set Up Tub Transfer Routine Supervision/Set Up,Minimal Contact Assist Functional Transfers for ADL Supervision/Set Up Grooming Routine Supervision/Set Up Feeding Routine Supervision/Set Up Nursing: Goals Bladder Goal Continent - independent with toileting Bowel Goal Continent - independent with toileting Nutrition Goal Eats 100% of all meals Medication Goal Assistance with medications Nutrition: Goals Intervention Goals 1. pt will tolerate po intake without adverse GI effects 2. adequate po intake to maintain hydration, stable wt, and lean body mass 3. achieve and maintain serum electrolytes levels WNL 4. achieve and maintain regulated bowel pattern without c/o constipation (or diarrhea) 5. intake will promote wound healing w/o additional skin breakdown Speech: Goals Speech Goal 1 Memory Goal 1 Comments Memory Goals: Long-Term Goal: Pt will use compensatory strategies to encode and retrieve 5/5 new items after delay of 30 minutes, Independently, for independence in mobility safety, ADLs and community access. Status: Not progressing at this time. Long-Term Goal: Pt will use compensatory strategies to solve simple routine problems, for transfer and mobility safety, adaptive dressing, time and money management; with 80% accuracy, given skilled instruction, Moderate cueing, and extra time. Status: Not progressing at this time. Short-term Goals 1) STG: Patient will use compensatory strategies to encode and retrieve 3/4 new items after delay of 5 minutes, given skilled instruction, Moderate cueing, and extra time. Status: Not progressing at this time. 2) STG: Patient will use compensatory strategies to solve simple routine problems, for transfer and mobility safety, adaptive dressing, time and money management; with 80% accuracy, given skilled instruction, Maximum cueing, and extra time. Status: Patient is not progressing at time. Speech Goal 2 Language Expression Speech Goal 2 Comments Language Expression Goals: Long-Term Goal: Pt will use conversational repair strategies to cooperatively find words in structured conversation, 80% accuracy, given extra time, given moderate cueing Status: Not progressing at time. Short-Term Goal: Pt will use conversational repair strategies to cooperatively find words in structured language activities, 80% accuracy, given skilled instruction, Maximal cueing, and extra time. Status: Not progressing at time. Patient has c/o difficulty completing her sentences and recalling what she wanted to say. ECHO TECHNOLOGIST presented sentence starters and cued patient to complete those sentencs and continue as a story . Given moderate initial cueing faded to minimal, patient produced appropriate short completions to sentences, and plausible next steps in stories. Patient did not self-correct, but responded well to repetition as needed. Social Work: Goals Discharge Plan return home with home care svs and family support Potential for Family Training pt's family are involved and supportive Anticipated Discharge Home Destination Discharge With home care svs and family support Care Plan: Care Plan ADL's - Improve/Maintain Start: 10/31/18 16:26 Freq: DAILY Status: Active Target: Protocol: Activity Type Activity Date Activity User E-Sign Co-Sign Detail Recorded Client Recorded Date Recorded By Document 11/11/18 14:40 [id number] 11/11/18 14:40 [id number] 11/11/18 14:40 PMRU Outcome: ADL's/ADL Transfers Orders/Interventions Occupational Therapy Evaluation & Treatment Communication Tool in Patient Room Device Yes Address Deficits Secondary To: Parkinson's exacerbation Patient to receive OT 5x/wk for 60-120 Therex min/day Self Care Management Group Therapy UE/LE ADL's with Assist Yes: S-Sánchez ADL Transfers with Assist Yes: S Toileting: Transfers,Clothing Management Yes: S-Sánchez ,Hygeine w/Assist Light Kitchen/Laundry w/Assist No Progression Toward Outcome/Goals Progressing Outcome/Goals Met Pt is showing some challenges in comparison to earlier last wk d/t increased fatigue. She continues to participate to the best of her ability Communication-Improve/Maintain Start: 10/31/18 12:00 Freq: DAILY Status: Active Target: Protocol: Activity Type Activity Date Activity User E-Sign Co-Sign Detail Recorded Client Recorded Date Recorded By Document 11/12/18 00:00 [id number] 11/12/18 01:00 [id number] 11/12/18 00:00 PMRU Outcome: Communication/Cognitive Status Outcome/Goals Other Other Outcomes/Goals Memory Goals: Long-Term Goal: Pt will use compensatory strategies to encode and retrieve 5/5 new items after delay of 30 minutes, Independently, for independence in mobility safety, ADLs and community access. Status: Not progressing Long-Term Goal: Pt will use compensatory strategies to solve simple routine problems, for transfer and mobility safety , adaptive dressing, time and money management; with 80% accuracy, given skilled instruction, Moderate cueing , and extra time. Status: Not progressing Short-term Goals 1) STG: Patient will use compensatory strategies to encode and retrieve 3/4 new items after delay of 5 minutes, given skilled instruction, Moderate cueing , and extra time. Status: Not progressing 2) STG: Patient will use compensatory strategies to solve simple routine problems, for transfer and mobility safety , adaptive dressing, time and money management; with 80% accuracy, given skilled instruction, Maximum cueing, and extra time . Status: Not progressing Language Expression Goals: Long-Term Goal: Pt will use conversational repair strategies to cooperatively find words in structured conversation, 80% accuracy, given extra time, givne moderate cueing Status: Progressing slowly as expected Short-Term Goal : Pt will use conversational repair strategies to cooperatively find words in structured language activities, 80% accuracy, given skilled instruction, Maximal cueing, and extra time . Status: Progressing slowly as expected Progression Toward Outcomes/Goals Not Progressing DVT Prophylaxis- Improve/Maintain Start: 10/31/18 12:00 Freq: QSHIFT Status: Active Target: Protocol: Activity Type Activity Date Activity User E-Sign Co-Sign Detail Recorded Client Recorded Date Recorded By Document 11/11/18 18:09 [id number] [email or web address] 11/11/18 18:11 [id number] 11/11/18 18:09 PMRU Outcome: DVT Prophylaxis Outcome/Goals Remains Free of DVT Complies with DVT Prophylaxis /Treatment TEDS Stockings on Every AM, Off at HS Progression Toward Outcome/Goals Progressing Discharge Planning - Improve/Maintain Start: 10/31/18 12:00 Freq: DAILY Status: Active Target: Protocol: Activity Type Activity Date Activity User E-Sign Co-Sign Detail Recorded Client Recorded Date Recorded By Document 11/12/18 00:00 [id number] 11/12/18 01:00 [id number] 11/12/18 00:00 PMRU Outcome: Discharge Planning Update Patient Family Yes Outcome/Goals Demonstrates Understanding of Discharge Plan Progression Toward Outcome/Goals Progressing Education-Improve/Maintain Start: 10/31/18 12:00 Freq: QSHIFT Status: Active Target: Protocol: Activity Type Activity Date Activity User E-Sign Co-Sign Detail Recorded Client Recorded Date Recorded By Document 11/11/18 18:09 [id number] 11/11/18 18:11 [id number] 11/11/18 18:09 PMRU Outcome: Education Outcome/Goals Demonstrates Skills Encourage Questions Progression Toward Outcome/Goals Progressing /GI-Improve/Maintain Start: 10/31/18 12:00 Freq: QSHIFT Status: Active Target: Protocol: Activity Type Activity Date Activity User E-Sign Co-Sign Detail Recorded Client Recorded Date Recorded By Document 11/11/18 18:09 [id number] 11/11/18 18:11 [id number] 11/11/18 18:09 PMRU Outcome: Genitourinary/ Gastrointestinal Genitourinary- Outcome/Goals Maintain/ Achieve Adequate Urinary Output Remain Free of Hospital- Acquired UTI Gastrointestinal-Outcome/Goals Maintain/ Achieve Bowel Regularity in Accordance with Pt's Baseline Remain Free of Emesis Progression Toward Outcome/Goals - Progressing Progression Toward Outcome/Goals - GI Progressing Outcome/Goals Met Comment espinoza in place Medication Administration Start: 10/31/18 12:00 Freq: QSHIFT Status: Active Target: Protocol: Activity Type Activity Date Activity User E-Sign Co-Sign Detail Recorded Client Recorded Date Recorded By Document 11/11/18 18:09 [id number] 11/11/18 18:11 [id number] 11/11/18 18:09 PMRU Outcome: Medication Administration Assess Patient Knowledge/Teach Med Yes Education for all Meds Outcome/Goals Family/ Caregiver Administer Medications at Home Demonstrates Understanding Progression Towards Outcome/Goals Progressing Outcome/Goals Met Family/ Caregiver Administer Medications at Home Is Patient Going Home on Lovenox? No Mobility- Improve/Maintain Start: 11/12/18 09:20 Freq: DAILY Status: Active Target: Protocol: Activity Type Activity Date Activity User E-Sign Co-Sign Detail Recorded Client Recorded Date Recorded By Document 11/12/18 09:20 [id number] 11/12/18 09:23 [id number] 11/12/18 09:20 PMRU Outcome: Mobility Physical Therapy Evaluation and Yes Treatment Activity OOB with Assistance Yes Device Yes: walker Assistance Yes: CGA Patient to be seen 5x/wk for 60-120 min/ Therex day for: Mobility Training Gait Training Balance Outcome/Goals Maintain/ Achieve Baseline Mobility Status Improve Mobility Status Demonstrates Proper Use of Assistive Devices Free from Complications of Immobility Progression Toward Outcome/Goals Progressing Outcome/Goals Met Improve Mobility Status Free from Complications of Immobility Bed Mobility Yes: Supervision Transfers Yes: CGAx1 with walker Gait x ft Yes: CGAx1 with walker x150ft W/C Mobility x ft No Up/Down Stairs Yes: CGAx1 flight of stairs With HEP Yes: Supervision Neurological- Improve/Maintain Start: 10/31/18 12:00 Freq: QSHIFT Status: Active Target: Protocol: Activity Type Activity Date Activity User E-Sign Co-Sign Detail Recorded Client Recorded Date Recorded By Document 11/11/18 18:09 [id number] 11/11/18 18:11 [id number] 11/11/18 18:09 PMRU Outcome: Neurological Weakness/Aphasia Weakness Outcome/Goals Improve Neurological Status Prevent Avoidable Neurological Decline Demonstrate Knowledge of Prevention/Tx of Neuro Disorders/ Complication Progression Toward Outcome/Goals Progressing Pain/Comfort- Improve/Maintain Start: 10/31/18 12:00 Freq: QSHIFT Status: Active Target: Protocol: Activity Type Activity Date Activity User E-Sign Co-Sign Detail Recorded Client Recorded Date Recorded By Document 11/11/18 18:09 [id number] [id number] 11/11/18 18:11 [id number] 11/11/18 18:09 PMRU Outcome: Pain/Comfort Outcome/Goals Demonstrates Knowledge and Use of Available Comfort Measures Achieves Acceptable Comfort/Pain Level as Determined by Patient/Condit Progression Toward Outcome/Goals Progressing Outcome/Goals Met Comment ibuprofen provided Safety- Improve/Maintain Start: 10/31/18 12:00 Freq: QSHIFT Status: Active Target: Protocol: Activity Type Activity Date Activity User E-Sign Co-Sign Detail Recorded Client Recorded Date Recorded By Document 11/11/18 18:09 [id number] [id number] 11/11/18 18:11 [id number] 11/11/18 18:09 PMRU Outcome: Safety Outcome/Goals Remain Free of Injury or Harm Cooperates with Safety Measures for Least Restrictive Environment Progression Toward Outcome/Goals Progressing Outcome/Goals Met Comment SHAILA armed, family in room Skin- Improve/Maintain Start: 10/31/18 12:00 Freq: QSHIFT Status: Active Target: Protocol: Activity Type Activity Date Activity User E-Sign Co-Sign Detail Recorded Client Recorded Date Recorded By Document 11/11/18 18:09 [id number] 11/11/18 18:11 [id number] 11/11/18 18:09 PMRU Outcome: Skin Skin Risk Level Medium Skin Orders Air Mattress Turn/Position q2hr While in Bed Outcome/Goals Maintain/ Improve Skin Intergrity Progression Toward Outcome/Goals Progressing Medicine Note: Length of Stay: 3 days Anticipated Discharge Destination: Home Tentative Discharge Date: 11/15/18 Discharged to: Home
[2018-11-12] MEDS: PROBIOTIC PO SCH (13:39)
[2018-11-12] MEDS: ELLURA PO SCH (13:39)
[2018-11-12] MEDS: Ibuprofen TAB* 400 MG PO PRN (18:01)
--- NOTE | 2018-11-12 18:07 | PN ---
Progress Note Date of Service: 11/12/18 Note: MERVIN MCRAE was visited. Therapy notes read and reviewed. She was discussed in interdisciplinary team rounds. She had vomiting again this morning and am not sure what is causing it. She seemed to improve last time with IV fluids, will repeat. Have asked GI to see. Discussed her case with Dr. Abbott Current Medications: Active Medications Generic Name Dose Route Start Last Admin Trade Name Freq PRN Reason Stop Dose Admin Acetaminophen 650 mg 10/31/18 11:30 11/11/18 14:24 Tylenol Tab* PO 650 mg Q6H PRN Administration FEVER/PAIN Aspirin 81 mg 11/01/18 09:00 11/12/18 08:45 Aspirin Ec Tab* PO 81 mg DAILY EDVIN Administration Bisacodyl 10 mg 11/12/18 16:17 Dulcolax Supp* [facility] DAILY PRN CONSTIPATION Carbidopa/Levodopa 3 tab 11/05/18 13:00 11/12/18 17:47 Sinemet 25/100 Tab(*) PO 3 tab 0730,1300,1730 EDVIN Administration Ciprofloxacin 250 mg 11/12/18 21:00 Cipro Tab* PO Q12HR EDVIN Protocol Clonazepam 0.5 mg 11/04/18 07:30 11/12/18 17:47 Klonopin Tab(*) PO 0.5 mg 0730,1300,1730 EDVIN Administration Clonazepam 0.5 mg 11/03/18 21:52 11/03/18 22:23 Klonopin Tab(*) PO 0.5 mg Q24H PRN Administration ANXIETY Cyanocobalamin 500 mcg 10/31/18 21:00 11/12/18 08:45 Vitamin B12 Tab* PO 500 mcg BID EDVIN Administration Docusate Sodium 100 mg 10/31/18 21:00 11/12/18 08:46 Colace Cap* PO 100 mg BID EDVIN Administration Heparin Sodium (Porcine) 5,000 units 10/31/18 14:00 11/12/18 15:04 Heparin Vial(*) SUBCUT 5,000 units Q8HR EDVIN Administration Dextrose/Sodium Chloride 1,000 mls @ 75 mls/hr 11/12/18 17:00 D5ns 0.9% 1000 Ml Bag* IV PER RATE EDVIN Ibuprofen 400 mg 11/09/18 09:51 11/12/18 18:01 Motrin Tab* PO 400 mg Q6H PRN Administration HEADACHE Lamotrigine 100 mg 10/31/18 21:00 11/12/18 08:46 Lamictal Tab(*) PO 100 mg BID EDVIN Administration [place] Carbonate 300 mg 10/31/18 21:00 11/12/18 08:46 [place] Carbonate Tab* PO 300 mg BID EDVIN Administration Magnesium Citrate 150 ml 11/08/18 10:01 11/11/18 21:02 Citrate Of Magnesia* PO 150 ml DAILY PRN Administration constipation Magnesium Hydroxide 30 ml 11/12/18 16:18 Milk Of Magnesia Liq* PO Q6H PRN CONSTIPATION Mirtazapine 15 mg 11/03/18 21:00 11/11/18 21:02 Remeron Tab* PO 15 mg BEDTIME EDVIN Administration Mometasone Furoate/Formoterol Fumar 2 puff 10/31/18 21:00 11/12/18 08:35 Dulera 200/5 Mdi* INH 2 puff BID EDVIN Administration Pto: ([place]ura 1 Cap) 1 cap 11/04/18 12:00 11/12/18 13:39 PO 1 cap 1200 EDVIN Administration Pto: (Probiotic 10 1 cap 11/04/18 12:00 11/12/18 13:39 Cap) PO 1 cap 1200 EDVIN Administration Ondansetron HCl 4 mg 11/01/18 09:00 11/12/18 07:59 Zofran Odt Tab* PO 4 mg Q4H PRN Administration NAUSEA Pantoprazole Sodium 40 mg 11/01/18 09:00 11/12/18 08:46 Protonix Tab* PO 40 mg DAILY EDVIN Administration Propranolol HCl 10 mg 11/01/18 09:00 11/12/18 08:46 Inderal Tab* PO 10 mg DAILY EDVIN Administration Senna 2 tab 11/03/18 21:00 11/11/18 21:02 Senokot Tab* PO 2 tab BEDTIME EDVIN Administration Sertraline HCl 150 mg 11/01/18 09:00 11/12/18 08:47 Zoloft* PO 150 mg DAILY EDVIN Administration Sodium Chloride 1 spray 11/09/18 09:51 11/11/18 18:14 Sodium Chloride 0.65% Nasal [place]* BOTH NARES 1 spray Q4H PRN Administration CONGESTION Tamsulosin HCl 0.4 mg 10/31/18 21:00 11/11/18 21:02 Flomax Cap* PO 0.4 mg BEDTIME EDVIN Administration Tiotropium [place] 1 cap 11/01/18 09:00 11/12/18 08:31 Spiriva Cap.Inh* INH 1 cap DAILY EDVIN Administration Vital Signs: Vital Signs Temp Pulse Resp BP Pulse Ox 97.7 F 66 16 105/61 94 11/12/18 15:55 11/12/18 15:55 11/12/18 17:47 11/12/18 15:55 11/12/18 15:55 Exam: GENERAL: No acute distress. alert and appropriate. LUNGS: Clear to auscultation bilaterally with decreased breath sounds HEART: regular rate and rhythm ABDOMEN: Soft, +BS, non-distended, no tenderness. EXTREMITIES: pulses intact NEUROLOGIC: Motor 5/5 BLE with normal sensation. Assessment/Plan: 1. Parkinson's Disease: Continue Sinemet 2. Bipolar Disease: [place]/Lamictal 3. Nausea: Zofran prn. IV fluids 4. Urinary Tract Infection: Cipro 250mg q12h day 06/27. [place] clamping started. 5. COPD: Spiriva/Dulera. Oxygen prn. Saline ns prn congestion. 6. DVT Prophylaxis: Heparin 7. Anxiety: Scheduled Klonopin 8. Advance Directives: Full code. is surrogate decision maker 9. Constipation: Ordered MOM and dulcolax suppository prn. . 10. Intermittent headaches: allow ibuprofen prn. 11/12/18 18:07
[2018-11-12] MEDS: Bisacodyl SUPP* 10 MG SUPP PR PRN (19:20)
[2018-11-12] MEDS: D5NS 0.9% 1000 ML BAG* 1,000 ML IV SCH (19:28)
--- NOTE | 2018-11-12 20:10 | CONS ---
GASTROENTEROLOGY CONSULT: DATE OF CONSULT: 11/12/18 CONSULTING PHYSICIANS: Dr. Amado Morataya, Dr. Angela Leal. REASON FOR CONSULTATION: Nausea, vomiting and constipation. HISTORY: This 73-year-old woman with parkinsonism, depression, bipolar disease , COPD, recurring UTIs, hypercalcemia and a history of constipation, has been on the rehab unit for 12 days, trying to regulate her situation. She had been hospitalized 10/29 with weakness attributed to a UTI and hypercalcemia. Her son helped in giving some perspective about her home care as she cannot give any history other than to report direct symptoms. She has been eating sparingly at home, but then has a very low activity level. At home, her appetite has not been robust, but she had not been vomiting recently to his recollection. Her bowel habit had been quite reduced, but she adopted a pattern of having MiraLAX daily for about 10 days prior to her admission here for UTI 2 weeks ago. She was having daily stools then or at least every other day. She was not complaining of acid indigestion. She had been placed on a PPI in august or September [address] Robles. Upper endoscopy then showed a small hiatal hernia, but no erosions. It was recommended she continue the PPI and she was on that when she was admitted here with a UTI 2 weeks ago. During that admission 2 weeks ago, she came in on 19 different medications. The list appears to have been paired down to 12, but still contains Sinemet, Klonopin, Lamictal, lithium, Remeron, and Zoloft. Her omeprazole has been switched to Protonix. Her last abdominal imaging was a CT of the abdomen in January 2016, remarkable for a mild fatty liver and nonspecific thickening of part of the colon. She had an admission to [facility] in February 2016 with a very similar set of complaints and She has been taking Advil at home for headaches and that was a prominent complaint tonight, discussing her situation in her hospital room. PAST MEDICAL HISTORY: 1. Parkinson's disease - recent adjustments to medications. 2. COPD. 3. Frequent urinary infections. 4. Acid reflux - on a daily PPI. 5. COPD. 6. Hypercalcemia - Dr Mark has been consulted in the past apparently as an outpt. Her calcium was normal in March 2018 and in 2013 - MEDICATIONS: See above. SOCIAL HISTORY: She is cared for at home by her and son. Her owns "[employer]" in [facility]. REVIEW OF SYSTEMS: No history of syncope, seizures, AK, arrhythmias, hemoptysis , hepatitis, jaundice, rectal bleeding. She had EGD in October 2015 with a small hiatal hernia and a colonoscopy the same day that was remarkable for 2 small colon polyps and mild to moderate diverticulosis. PHYSICAL EXAM: She is a slightly pale woman with a very flat affect, sitting in a chair. She has eaten about one third of her dinner which her son said "was pretty good for her". HEENT exam shows no icterus. She has an inexpressive face. She has no adenopathy. Lungs are clear, though effort is poor. Heart sounds are regular with no murmur. The abdomen is flat, symmetric, soft and she has no particular complaint. Rectal: Deferred at this time. Extremities show no edema. DIAGNOSTIC STUDIES/LAB DATA: On 11/08/18, hemoglobin 13.1, hematocrit 40, platelets 330. INR 1.13. Sodium 139, potassium 3.5, BUN 13, creatinine 0.85. LFTs normal. Ammonia 54, albumin 4.0, calcium 12.0, ionized calcium 1.51. IMPRESSION AND PLAN: This 73-year-old woman with constipation, anorexia, and sporadic vomiting could have any number of explanations. 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 One abnormality that could relate to most all of the GI complaints is the calcium elevation. As opposed to most of her medical situation it is potentially treatable. It has fluctuated without definitive control though was normal periodically in the past with the outpt records not available. This is discussed in the Mar 2018 H+P and DC Sum. Is lithium the cause of hyperparathyroidism and is it actually obligatory. An Endocrine consult f/u or hospitalist medicine consult may be helpful. Given her positive experience with Miralax at home seems unlikely that MiraLAX would be contributing to nausea and vomiting and it would be a useful option for the constipation eventually as in her case there are likely many causes. Once her Ca++ is improved ir she has not gone spontaneously would use Miralax for 3 to 4 doses to try to get things moving. Tap water enema may be helpful. Digital rectal to rule out an impaction would be helpful. She is with family in post dinner setting at this time that can be deferred to the morning when full staff are available. If none of these measures seem to make a difference, upper endoscopy could be considered as she could have a component of caustic esophagitis from all her medications. For this possibility one could justify converting meds to elixors or crushed and taken exclusively in an upright position. [id number]/[facility] #: [id number] NEMO
[2018-11-12] MEDS: Senna TAB 8.6 mg* TAB PO SCH (21:16)
[2018-11-12] MEDS: Tamsulosin CAP* 0.4 MG PO SCH (21:17)
[2018-11-12] MEDS: Mirtazapine TAB* 15 MG PO SCH (21:17)
[2018-11-12] MEDS: Magnesium Hydroxide LIQ* 30 ML UDC PO PRN (21:19)
[2018-11-12] MEDS: Ciprofloxacin TAB* 250 MG PO SCH (21:31)
[2018-11-13] MEDS: Heparin VIAL(*) 5000 UNITS/ML VIAL (FIVE THOUSAND) SUBCUT SCH ×3 (05:56→21:23)
[2018-11-13] MEDS: Carbidopa/Levodop 25/100 MG TAB(*) PO SCH ×3 (07:40→18:46)
[2018-11-13] MEDS: clonazePAM TAB(*) 0.5 MG PO SCH ×3 (07:45→18:46)
[2018-11-13] MEDS: Tiotropium CAP.INH* CAP.INH/18 MCG (USE ORDER SET !) INH SCH (08:42)
[2018-11-13] MEDS: Mometasone/Formoter 200/5 MDI INH SCH ×2 (08:42→21:23)
[2018-11-13] MEDS: Lithium Carbonate TAB* 300 MG PO SCH ×2 (09:47→21:20)
[2018-11-13] MEDS: Propranolol TAB* 10 MG PO SCH (09:48)
[2018-11-13] MEDS: Sertraline* 100 MG TAB PO SCH (09:49)
[2018-11-13] MEDS: lamoTRIgine TAB(*) 100 MG PO SCH ×2 (09:52→21:20)
[2018-11-13] MEDS: Ciprofloxacin TAB* 250 MG PO SCH ×2 (09:52→21:21)
[2018-11-13] MEDS: Pantoprazole TAB * 40 MG TAB PO SCH (09:54)
[2018-11-13] MEDS: Aspirin EC TAB* 81 MG TAB.EC PO SCH (10:26)
[2018-11-13] MEDS: Cyanocobalamin TAB* 500 MCG PO SCH ×2 (10:26→21:22)
[2018-11-13] MEDS: Docusate CAP* 100 MG PO SCH ×2 (10:26→21:27)
[2018-11-13] MEDS: Magnesium Hydroxide LIQ* 30 ML UDC PO PRN (10:27)
[2018-11-13] MEDS: ELLURA PO SCH (12:11)
[2018-11-13] MEDS: PROBIOTIC PO SCH (12:13)
[2018-11-13] MEDS: Ondansetron ODT TAB* 4 MG PO PRN (13:46)
[2018-11-13] MEDS: Acetaminophen TAB* 325 MG PO PRN (14:24)
[2018-11-13] MEDS ORDERED: D5NS 0.9% 1000 ML BAG* 1,000 ML IV SCH (20:00)
--- NOTE | 2018-11-13 20:10 | PN ---
Progress Note Date of Service: 11/13/18 Note: MERVIN MCRAE was visited. Therapy notes read and reviewed. She was nauseated again today. Dr. Bautista's note read and appreciated. Will give another bag of fluids tomorrow. requests a urine recheck. He also has told me they have tried to stop [facility] in the past (as suggested by GI) and it was unsuccessful. He also told me that they saw Dr. Mark from endocrinology earlier this year. I will try to get his records Current Medications: Active Medications Generic Name Dose Route Start Last Admin Trade Name Freq PRN Reason Stop Dose Admin Acetaminophen 650 mg 10/31/18 11:30 11/13/18 14:24 Tylenol Tab* PO 650 mg Q6H PRN Administration FEVER/PAIN Aspirin 81 mg 11/01/18 09:00 11/13/18 10:26 Aspirin Ec Tab* PO 81 mg DAILY EDVIN Administration Bisacodyl 10 mg 11/12/18 16:17 11/12/18 19:20 Dulcolax Supp* [place] 10 mg DAILY PRN Administration CONSTIPATION Carbidopa/Levodopa 3 tab 11/05/18 13:00 11/13/18 18:46 Sinemet 25/100 Tab(*) PO 3 tab 0730,1300,1730 EDVIN Administration Ciprofloxacin 250 mg 11/12/18 21:00 11/13/18 09:52 Cipro Tab* PO 250 mg Q12HR EDVIN Administration Protocol Clonazepam 0.5 mg 11/04/18 07:30 11/13/18 18:46 Klonopin Tab(*) PO 0.5 mg 0730,1300,1730 EDVIN Administration Clonazepam 0.5 mg 11/03/18 21:52 11/03/18 22:23 Klonopin Tab(*) PO 0.5 mg Q24H PRN Administration ANXIETY Cyanocobalamin 500 mcg 10/31/18 21:00 11/13/18 10:26 Vitamin B12 Tab* PO 500 mcg BID EDVIN Administration Docusate Sodium 100 mg 10/31/18 21:00 11/13/18 10:26 Colace Cap* PO 100 mg BID EDVIN Administration Heparin Sodium (Porcine) 5,000 units 10/31/18 14:00 11/13/18 14:25 Heparin Vial(*) SUBCUT 5,000 units Q8HR EDVIN Administration Dextrose/Sodium Chloride 1,000 mls @ 75 mls/hr 11/12/18 17:00 11/12/18 19:28 D5ns 0.9% 1000 Ml Bag* IV 75 mls/hr PER RATE EDVIN Administration Dextrose/Sodium Chloride 1,000 mls @ 75 mls/hr 11/13/18 20:00 D5ns 0.9% 1000 Ml Bag* IV 11/14/18 09:19 PER RATE EDVIN Ibuprofen 400 mg 11/09/18 09:51 11/12/18 18:01 Motrin Tab* PO 400 mg Q6H PRN Administration HEADACHE Lamotrigine 100 mg 10/31/18 21:00 11/13/18 09:52 Lamictal Tab(*) PO 100 mg BID EDVIN Administration [employer] Carbonate 300 mg 10/31/18 21:00 11/13/18 09:47 [employer] Carbonate Tab* PO 300 mg BID EDVIN Administration Magnesium Hydroxide 30 ml 11/12/18 16:18 11/13/18 10:27 Milk Of Magnesia Liq* PO 30 ml Q6H PRN Administration CONSTIPATION Mirtazapine 15 mg 11/03/18 21:00 11/12/18 21:17 Remeron Tab* PO 15 mg BEDTIME EDVIN Administration Mometasone Furoate/Formoterol Fumar 2 puff 10/31/18 21:00 11/13/18 08:42 Dulera 200/5 Mdi* INH 2 puff BID EDVIN Administration Pto: (Ellura 1 Cap) 1 cap 11/04/18 12:00 11/13/18 12:11 PO 1 cap 1200 EDVIN Administration Pto: (Probiotic 10 1 cap 11/04/18 12:00 11/13/18 12:13 Cap) PO 1 cap 1200 EDVIN Administration Ondansetron HCl 4 mg 11/01/18 09:00 11/13/18 13:46 Zofran Odt Tab* PO 4 mg Q4H PRN Administration NAUSEA Pantoprazole Sodium 40 mg 11/01/18 09:00 11/13/18 09:54 Protonix Tab* PO 40 mg DAILY EDVIN Administration Polyethylene Glycol/Electrolytes 17 gm 11/14/18 09:00 Miralax* PO DAILY EDVIN Propranolol HCl 10 mg 11/01/18 09:00 11/13/18 09:48 Inderal Tab* PO 10 mg DAILY EDVIN Administration Senna 2 tab 11/03/18 21:00 11/12/18 21:16 Senokot Tab* PO 2 tab BEDTIME EDVIN Administration Sertraline HCl 150 mg 11/01/18 09:00 11/13/18 09:49 Zoloft* PO 150 mg DAILY EDVIN Administration Sodium Chloride 1 spray 11/09/18 09:51 11/11/18 18:14 Sodium Chloride 0.65% Nasal [place]* BOTH NARES 1 spray Q4H PRN Administration CONGESTION Tamsulosin HCl 0.4 mg 10/31/18 21:00 11/12/18 21:17 Flomax Cap* PO 0.4 mg BEDTIME EDVIN Administration Tiotropium [place] 1 cap 11/01/18 09:00 11/13/18 08:42 Spiriva Cap.Inh* INH 1 cap DAILY EDVIN Administration Vital Signs: Vital Signs Temp Pulse Resp BP Pulse Ox 98.2 F 64 18 107/69 92 11/13/18 15:59 11/13/18 15:59 11/13/18 18:46 11/13/18 15:59 11/13/18 15:59 Exam: GENERAL: No acute distress. alert and appropriate. LUNGS: Clear to auscultation bilaterally with decreased breath sounds HEART: regular rate and rhythm ABDOMEN: Soft, +BS, non-distended, no tenderness. EXTREMITIES: pulses intact NEUROLOGIC: Motor 5/5 BLE with normal sensation. Assessment/Plan: 1. Parkinson's Disease: Continue Sinemet 2. Bipolar Disease: [employer] [employer]/Lamictal 3. Nausea: Zofran prn. IV fluids 4. Urinary Tract Infection: Cipro 250mg q12h day 4. Capellan clamping. 5. COPD: Spiriva/Dulera. Oxygen prn. Saline ns prn congestion. 6. DVT Prophylaxis: Heparin 7. Anxiety: Scheduled Klonopin 8. Advance Directives: Full code. is surrogate decision maker 9. Constipation: Ordered MOM and dulcolax suppository prn. . 10. Intermittent headaches: allow ibuprofen prn. 11/13/18 20:10
[2018-11-13] MEDS: Tamsulosin CAP* 0.4 MG PO SCH (21:20)
[2018-11-13] MEDS: Mirtazapine TAB* 15 MG PO SCH (21:20)
[2018-11-13] MEDS: Senna TAB 8.6 mg* TAB PO SCH (21:28)
[2018-11-13] MEDS: D5NS 0.9% 1000 ML BAG* 1,000 ML IV SCH (21:56)
[2018-11-14] MEDS: Heparin VIAL(*) 5000 UNITS/ML VIAL (FIVE THOUSAND) SUBCUT SCH ×3 (06:52→21:04)
[2018-11-14] MEDS: Carbidopa/Levodop 25/100 MG TAB(*) PO SCH ×3 (07:44→17:31)
[2018-11-14] MEDS: clonazePAM TAB(*) 0.5 MG PO SCH ×3 (07:44→17:31)
[2018-11-14] MEDS ORDERED: Sodium Phosphate ADULT ENEMA* 118 ml bottle PR PRN (08:37)
[2018-11-14] MEDS: Ondansetron ODT TAB* 4 MG PO PRN (08:48)
[2018-11-14 09:26] LABS: Urine Appearance Cloudy; Urine Bacteria Absent (Absent); Urine Bilirubin Negative (Negative); Urine Blood Negative (Negative); Urine Color Yellow; Urine Glucose Negative (Negative); Urine Ketones Negative (Negative); Urine Nitrite Negative (Negative); Urine Protein Negative (Negative); Urine Red Blood Cell Absent (Absent); Urine Specific Gravity 1.006 (1.010-1.030); Urine Squamous Epithelial Cell Present (Absent); Urine Urobilinogen Negative (Negative); Urine White Blood Cell 3+(>20/hpf) (Absent)
[2018-11-14] MEDS: Cyanocobalamin TAB* 500 MCG PO SCH ×2 (09:30→21:04)
[2018-11-14] MEDS: Mometasone/Formoter 200/5 MDI INH SCH ×2 (09:30→21:03)
[2018-11-14] MEDS: Propranolol TAB* 10 MG PO SCH (09:30)
[2018-11-14] MEDS: lamoTRIgine TAB(*) 100 MG PO SCH ×2 (09:30→20:55)
[2018-11-14] MEDS: Aspirin EC TAB* 81 MG TAB.EC PO SCH (09:30)
[2018-11-14] MEDS: Sertraline* 100 MG TAB PO SCH (09:30)
[2018-11-14] MEDS: Docusate CAP* 100 MG PO SCH ×2 (09:30→21:04)
[2018-11-14] MEDS: Ciprofloxacin TAB* 250 MG PO SCH (09:30)
[2018-11-14] MEDS: Lithium Carbonate TAB* 300 MG PO SCH ×2 (09:30→20:55)
[2018-11-14] MEDS: Tiotropium CAP.INH* CAP.INH/18 MCG (USE ORDER SET !) INH SCH (09:32)
[2018-11-14] MEDS: Polyethylene Glycol 3350* 17 GM PACKET PO SCH (10:55)
[2018-11-14] MEDS: Pantoprazole TAB * 40 MG TAB PO SCH (10:56)
[2018-11-14] MEDS: PROBIOTIC PO SCH (14:30)
[2018-11-14] MEDS: ELLURA PO SCH (14:30)
[2018-11-14] MEDS: Magnesium Hydroxide LIQ* 30 ML UDC PO PRN (18:24)
[2018-11-14] MEDS: Cephalexin CAP* 500 MG PO SCH (18:39)
--- NOTE | 2018-11-14 18:56 | PN ---
Progress Note Date of Service: 11/14/18 Note: MERVIN MCRAE was visited. Therapy notes read and reviewed. She remains constipated. She has had MiraLax, and an enema today. Will give MOM again. Her urine Cx showed enterococcus, but sensitivities indicate resistance to Cipro. Will start Keflex. She was able to void after espinoza removed. Current Medications: Active Medications Generic Name Dose Route Start Last Admin Trade Name Freq PRN Reason Stop Dose Admin Acetaminophen 650 mg 10/31/18 11:30 11/13/18 14:24 Tylenol Tab* PO 650 mg Q6H PRN Administration FEVER/PAIN Aspirin 81 mg 11/01/18 09:00 11/14/18 09:30 Aspirin Ec Tab* PO Not Given DAILY EDVIN Bisacodyl 10 mg 11/12/18 16:17 11/12/18 19:20 Dulcolax Supp* [place] 10 mg DAILY PRN Administration CONSTIPATION Carbidopa/Levodopa 3 tab 11/05/18 13:00 11/14/18 17:31 Sinemet 25/100 Tab(*) PO 3 tab 0730,1300,1730 EDVIN Administration Cephalexin HCl 500 mg 11/14/18 18:00 11/14/18 18:39 Keflex Cap* PO 500 mg Q8H EDVIN Administration Clonazepam 0.5 mg 11/04/18 07:30 11/14/18 17:31 Klonopin Tab(*) PO 0.5 mg 0730,1300,1730 EDVIN Administration Clonazepam 0.5 mg 11/03/18 21:52 11/03/18 22:23 Klonopin Tab(*) PO 0.5 mg Q24H PRN Administration ANXIETY Cyanocobalamin 500 mcg 10/31/18 21:00 11/14/18 09:30 Vitamin B12 Tab* PO Not Given BID EDVIN Docusate Sodium 100 mg 10/31/18 21:00 11/14/18 09:30 Colace Cap* PO Not Given BID EDVIN Heparin Sodium (Porcine) 5,000 units 10/31/18 14:00 11/14/18 14:30 Heparin Vial(*) SUBCUT 5,000 units Q8HR EDVIN Administration Dextrose/Sodium Chloride 1,000 mls @ 75 mls/hr 11/12/18 17:00 11/12/18 19:28 D5ns 0.9% 1000 Ml Bag* IV 75 mls/hr PER RATE EDVIN Administration Ibuprofen 400 mg 11/09/18 09:51 11/12/18 18:01 Motrin Tab* PO 400 mg Q6H PRN Administration HEADACHE Lamotrigine 100 mg 10/31/18 21:00 11/14/18 09:30 Lamictal Tab(*) PO Not Given BID EDVIN [place] Carbonate 300 mg 10/31/18 21:00 11/14/18 09:30 [place] Carbonate Tab* PO Not Given BID EDVIN Magnesium Hydroxide 30 ml 11/12/18 16:18 11/14/18 18:24 Milk Of Magnesia Liq* PO 30 ml Q6H PRN Administration CONSTIPATION Mirtazapine 15 mg 11/03/18 21:00 11/13/18 21:20 Remeron Tab* PO 15 mg BEDTIME EDVIN Administration Mometasone Furoate/Formoterol Fumar 2 puff 10/31/18 21:00 11/14/18 09:30 Dulera 200/5 Mdi* INH 2 puff BID EDVIN Administration Pto: (Ellura 1 Cap) 1 cap 11/04/18 12:00 11/14/18 14:30 PO Not Given 1200 EDVIN Pto: (Probiotic 10 1 cap 11/04/18 12:00 11/14/18 14:30 Cap) PO Not Given 1200 EDVIN Ondansetron HCl 4 mg 11/01/18 09:00 11/14/18 08:48 Zofran Odt Tab* PO 4 mg Q4H PRN Administration NAUSEA Pantoprazole Sodium 40 mg 11/01/18 09:00 11/14/18 10:56 Protonix Tab* PO 40 mg DAILY EDVIN Administration Polyethylene Glycol/Electrolytes 17 gm 11/14/18 09:00 11/14/18 10:55 Miralax* PO 17 gm DAILY EDVIN Administration Propranolol HCl 10 mg 11/01/18 09:00 11/14/18 09:30 Inderal Tab* PO Not Given DAILY EDVIN Senna 2 tab 11/03/18 21:00 11/13/18 21:28 Senokot Tab* PO Not Given BEDTIME EDVIN Sertraline HCl 150 mg 11/01/18 09:00 11/14/18 09:30 Zoloft* PO Not Given DAILY EDVIN Sodium Biphosphate/Sodium Phosphate 1 bottle 11/14/18 08:37 11/14/18 13:02 Fleet Enema* [place] 1 bottle DAILY PRN Administration CONSTIPATION Sodium Chloride 1 spray 11/09/18 09:51 11/11/18 18:14 Sodium Chloride 0.65% Nasal [place]* BOTH NARES 1 spray Q4H PRN Administration CONGESTION Tamsulosin HCl 0.4 mg 10/31/18 21:00 11/13/18 21:20 Flomax Cap* PO 0.4 mg BEDTIME EDVIN Administration Tiotropium [place] 1 cap 11/01/18 09:00 11/14/18 09:32 Spiriva Cap.Inh* INH 1 cap DAILY EDVIN Administration Vital Signs: Vital Signs Temp Pulse Resp BP Pulse Ox 98.0 F 73 20 137/79 93 11/14/18 17:33 11/14/18 17:33 11/14/18 17:33 11/14/18 17:33 11/14/18 17:33 Lab Results: Laboratory Results - last 24 hr 11/14/18 08:41 Urine Color Yellow Urine Appearance Cloudy Urine pH 8.0 Ur Specific [place] 1.006 L Urine Protein Negative Urine Ketones Negative Urine Blood Negative Urine Nitrate Negative Urine Bilirubin Negative Urine Urobilinogen Negative Ur Leukocyte Esterase 2+ A Urine WBC (Auto) 3+(>20/hpf) A Urine RBC (Auto) Absent Ur Squamous Epith Cells Present A Urine Bacteria Absent Urine Glucose Negative Exam: GENERAL: No acute distress. alert and appropriate. LUNGS: Clear to auscultation bilaterally with decreased breath sounds HEART: regular rate and rhythm ABDOMEN: Soft, +BS, non-distended, no tenderness. EXTREMITIES: pulses intact NEUROLOGIC: Motor 5/5 BLE with normal sensation. Assessment/Plan: 1. Parkinson's Disease: Continue Sinemet 2. Bipolar Disease: [place]/Lamictal 3. Nausea: Zofran prn. IV fluids. May try Scopolamine patch 4. Urinary Tract Infection: Cipro d/c'd will start Keflex, 500 mg Q 8, day 1/7. Espinoza out, voiding. 5. COPD: Spiriva/Dulera. Oxygen prn. Saline ns prn congestion. 6. DVT Prophylaxis: Heparin 7. Anxiety: Scheduled Klonopin 8. Advance Directives: Full code. is surrogate decision maker 9. Constipation: Ordered MOM and dulcolax suppository prn, had Fleet's and MiraLax. 10. Intermittent headaches: allow ibuprofen prn. 11/14/18 18:57 11/14/18 19:10
[2018-11-14] MEDS: Mirtazapine TAB* 15 MG PO SCH (20:55)
[2018-11-14] MEDS: Tamsulosin CAP* 0.4 MG PO SCH (20:55)
[2018-11-14] MEDS: Senna TAB 8.6 mg* TAB PO SCH (21:04)
[2018-11-15] MEDS: Cephalexin CAP* 500 MG PO SCH ×3 (02:33→20:36)
[2018-11-15] MEDS: Heparin VIAL(*) 5000 UNITS/ML VIAL (FIVE THOUSAND) SUBCUT SCH ×3 (06:20→21:55)
[2018-11-15] MEDS: Carbidopa/Levodop 25/100 MG TAB(*) PO SCH ×3 (07:40→18:21)
[2018-11-15] MEDS: Ondansetron ODT TAB* 4 MG PO PRN (07:40)
[2018-11-15] MEDS: clonazePAM TAB(*) 0.5 MG PO SCH ×3 (07:41→18:24)
[2018-11-15] MEDS: Magnesium Hydroxide LIQ* 30 ML UDC PO PRN (07:41)
[2018-11-15 08:13] LABS: ABS Basophils 0.1 10^3/ul (0-0.2); ABS Eosinophils 0.5 10^3/ul (0-0.6); ABS Lymphocytes 1.3 10^3/ul (1.0-4.8); ABS Monocytes 0.6 10^3/ul (0-0.8); ABS Neutrophils 6.4 10^3/ul (1.5-7.7); Eosinophil % 5.5 %; Hematocrit 36 % (35-47); Hemoglobin 12.1 g/dL (12.0-16.0); Lymphocyte % 15.1 %; Mean Corpuscular HGB Conc 34 g/dL (31-36); Mean Corpuscular Hemoglobin 32 pg (27-31); Mean Corpuscular Volume 94 fL (80-97); Mean Platelet Volume 11.5 fL (7.4-10.4); Platelet Count 248 10^3/uL (150-450); Red Blood Count 3.77 10^6 /uL (3.70-4.87); Red Cell Distribution Width 13 % (10-15); White Blood Count 8.9 10^3/uL (3.5-10.8)
[2018-11-15 08:31] LABS: ALT < 3 U/L (7-52); AST 6 U/L (13-39); Albumin 3.8 g/dL (3.2-5.2); Albumin/Globulin Ratio 1.9 (1-3); Alkaline Phosphatase 94 U/L (34-104); Anion Gap 4 mmol/L (2-11); BUN/Creatinine Ratio 12.1 (8-20); Blood Urea Nitrogen 13 mg/dL (6-24); CO2 Carbon Dioxide 27 mmol/L (22-32); Calcium 12.1 mg/dL (8.6-10.3); Chloride 106 mmol/L (101-111); EGFR African American 61.2 (>60); EGFR Non-African American 50.6 (>60); Glucose 124 mg/dL (70-100); Potassium 3.8 mmol/L (3.5-5.0); Sodium 137 mmol/L (135-145); Total Protein 5.8 g/dL (6.4-8.9)
[2018-11-15] MEDS: lamoTRIgine TAB(*) 100 MG PO SCH ×2 (09:29→21:54)
[2018-11-15] MEDS: Pantoprazole TAB * 40 MG TAB PO SCH (09:29)
[2018-11-15] MEDS: Lithium Carbonate TAB* 300 MG PO SCH ×2 (09:29→21:53)
[2018-11-15] MEDS: Mometasone/Formoter 200/5 MDI INH SCH ×2 (09:30→20:15)
[2018-11-15] MEDS ORDERED: Bisacodyl SUPP* 10 MG SUPP PR ONE (09:37)
--- NOTE | 2018-11-15 09:51 | PN ---
Progress Note Date of Service: 11/15/18 Note: MERVIN MCRAE was visited. Nursing and therapy notes read and reviewed. Poor appetite continues. Overnight only able to void 10cc, then bladder scanned for >600cc. She then voided 150cc but then no more. would like her to use zofran pre-meal to see if she will eat before using scopalomine. Also he does not want to have her receive intermittent straight cath unless she is retaining without UTI. He asks about enema today. No chest pain, shortness of breath or abdominal pain. Current Medications: Active Medications Generic Name Dose Route Start Last Admin Trade Name Freq PRN Reason Stop Dose Admin Acetaminophen 650 mg 10/31/18 11:30 11/13/18 14:24 Tylenol Tab* PO 650 mg Q6H PRN Administration FEVER/PAIN Aspirin 81 mg 11/01/18 09:00 11/14/18 09:30 Aspirin Ec Tab* PO Not Given DAILY EDVIN Bisacodyl 10 mg 11/12/18 16:17 11/12/18 19:20 Dulcolax Supp* [place] 10 mg DAILY PRN Administration CONSTIPATION Bisacodyl 10 mg 11/15/18 09:37 Dulcolax Supp* [place] 11/15/18 09:38 ONCE ONE Carbidopa/Levodopa 3 tab 11/05/18 13:00 11/15/18 07:40 Sinemet 25/100 Tab(*) PO 3 tab 0730,1300,1730 EDVIN Administration Cephalexin HCl 500 mg 11/14/18 18:00 11/15/18 02:33 Keflex Cap* PO 500 mg Q8H EDVIN Administration Clonazepam 0.5 mg 11/04/18 07:30 11/15/18 07:41 Klonopin Tab(*) PO 0.5 mg 0730,1300,1730 EDVIN Administration Clonazepam 0.5 mg 11/03/18 21:52 11/03/18 22:23 Klonopin Tab(*) PO 0.5 mg Q24H PRN Administration ANXIETY Cyanocobalamin 500 mcg 10/31/18 21:00 11/14/18 21:04 Vitamin B12 Tab* PO 500 mcg BID EDVIN Administration Docusate Sodium 100 mg 10/31/18 21:00 11/14/18 21:04 Colace Cap* PO 100 mg BID EDVIN Administration Heparin Sodium (Porcine) 5,000 units 10/31/18 14:00 11/15/18 06:20 Heparin Vial(*) SUBCUT 5,000 units Q8HR EDVIN Administration Dextrose/Sodium Chloride 1,000 mls @ 75 mls/hr 11/12/18 17:00 11/12/18 19:28 D5ns 0.9% 1000 Ml Bag* IV 75 mls/hr PER RATE EDVIN Administration Ibuprofen 400 mg 11/09/18 09:51 11/12/18 18:01 Motrin Tab* PO 400 mg Q6H PRN Administration HEADACHE Lamotrigine 100 mg 10/31/18 21:00 11/15/18 09:29 Lamictal Tab(*) PO 100 mg BID EDVIN Administration [place] Carbonate 300 mg 10/31/18 21:00 11/15/18 09:29 [place] Carbonate Tab* PO 300 mg BID EDVIN Administration Magnesium Hydroxide 30 ml 11/12/18 16:18 11/15/18 07:41 Milk Of Magnesia Liq* PO 30 ml Q6H PRN Administration CONSTIPATION Mirtazapine 15 mg 11/03/18 21:00 11/14/18 20:55 Remeron Tab* PO 15 mg BEDTIME EDVIN Administration Mometasone Furoate/Formoterol Fumar 2 puff 10/31/18 21:00 11/14/18 21:03 Dulera 200/5 Mdi* INH 2 puff BID EDVIN Administration Pto: (Ellura 1 Cap) 1 cap 11/04/18 12:00 11/14/18 14:30 PO Not Given 1200 EDVIN Pto: (Probiotic 10 1 cap 11/04/18 12:00 11/14/18 14:30 Cap) PO Not Given 1200 EDVIN Ondansetron HCl 4 mg 11/01/18 09:00 11/15/18 07:40 Zofran Odt Tab* PO 4 mg Q4H PRN Administration NAUSEA Ondansetron HCl 4 mg 11/15/18 10:30 Zofran Odt Tab* SL 07,1030 EDVIN Pantoprazole Sodium 40 mg 11/01/18 09:00 11/15/18 09:29 Protonix Tab* PO 40 mg DAILY EDVIN Administration Polyethylene Glycol/Electrolytes 17 gm 11/14/18 09:00 11/14/18 10:55 Miralax* PO 17 gm DAILY EDVIN Administration Propranolol HCl 10 mg 11/01/18 09:00 11/14/18 09:30 Inderal Tab* PO Not Given DAILY EDVIN Senna 2 tab 11/03/18 21:00 11/14/18 21:04 Senokot Tab* PO 2 tab BEDTIME EDVIN Administration Sertraline HCl 150 mg 11/01/18 09:00 11/14/18 09:30 Zoloft* PO Not Given DAILY EDVIN Sodium Biphosphate/Sodium Phosphate 1 bottle 11/14/18 08:37 11/14/18 13:02 Fleet Enema* [place] 1 bottle DAILY PRN Administration CONSTIPATION Sodium Chloride 1 spray 11/09/18 09:51 11/11/18 18:14 Sodium Chloride 0.65% Nasal [place]* BOTH NARES 1 spray Q4H PRN Administration CONGESTION Tamsulosin HCl 0.4 mg 10/31/18 21:00 11/14/18 20:55 Flomax Cap* PO 0.4 mg BEDTIME EDVIN Administration Tiotropium [place] 1 cap 11/01/18 09:00 11/14/18 09:32 Spiriva Cap.Inh* INH 1 cap DAILY EDVIN Administration Vital Signs: Vital Signs Temp Pulse Resp BP Pulse Ox 98.3 F 73 16 117/68 90 11/15/18 06:00 11/15/18 06:00 11/15/18 07:41 11/15/18 06:00 11/15/18 06:00 Lab Results: Laboratory Results - last 24 hr 11/15/18 11/15/18 07:37 07:37 WBC 8.9 RBC 3.77 Hgb 12.1 Hct 36 MCV 94 MCH 32 H MCHC 34 RDW 13 Plt Count 248 MPV 11.5 H Neut % (Auto) 71.6 Lymph % (Auto) 15.1 [place] % (Auto) 7.2 Eos % (Auto) 5.5 Baso % (Auto) 0.6 Absolute Neuts (auto) 6.4 Absolute Lymphs (auto) 1.3 Absolute Monos (auto) 0.6 Absolute Eos (auto) 0.5 Absolute Basos (auto) 0.1 Absolute Nucleated RBC 0.0 Nucleated RBC % 0.0 Sodium 137 Potassium 3.8 Chloride 106 Carbon Dioxide 27 Anion Gap 4 BUN 13 Creatinine 1.07 H Est GFR ( Amer) 61.2 Est GFR (Non-Af Amer) 50.6 BUN/Creatinine Ratio 12.1 Glucose 124 H Calcium 12.1 H Total Bilirubin 0.50 AST 6 L ALT < 3 L Alkaline Phosphatase 94 Total Protein 5.8 L Albumin 3.8 Globulin 2.0 Albumin/Globulin Ratio 1.9 Exam: GENERAL: No acute distress. alert and appropriate. LUNGS: Clear to auscultation bilaterally with decreased breath sounds HEART: regular rate and rhythm ABDOMEN: Soft, +BS, non-distended, no tenderness. EXTREMITIES: no edema NEUROLOGIC: Motor 5/5 BLE with normal sensation. Assessment/Plan: 1. Parkinson's Disease: Continue Sinemet 2. Bipolar Disease: [place]/Lamictal 3. Nausea: Zofran prn and will schedule at 07 and 1030. May try Scopolamine patch if scheduled zofran does not work. She does not eat dinner. Seen by Dr. Bautista this week. 4. Urinary Tract Infection/Urine retention: Cipro d/c'd and started Keflex 500 mg Q8h, day 2/7. Retaining again today. Capellan to go back in. declines intermittent cath. 5. COPD: Spiriva/Dulera. Oxygen prn. Saline ns prn congestion. 6. DVT Prophylaxis: Heparin 7. Anxiety: Scheduled Klonopin 8. Advance Directives: Full code. is surrogate decision maker 9. Constipation: Had fleets yesterday and back on daily miralax after GI consult. No BM since last week but poor po intake. Dulcolax suppository today. MOM prn. 10. Intermittent headaches: allow ibuprofen prn. 11. Cr slightly elevated: may be due to urine retention or keflex. Capellan. recheck tomorrow. 11/15/18 09:53
[2018-11-15] MEDS: Docusate CAP* 100 MG PO SCH ×2 (10:48→21:57)
[2018-11-15] MEDS: Polyethylene Glycol 3350* 17 GM PACKET PO SCH (10:48)
[2018-11-15] MEDS: Aspirin EC TAB* 81 MG TAB.EC PO SCH (10:48)
[2018-11-15] MEDS: Cyanocobalamin TAB* 500 MCG PO SCH ×2 (10:48→21:55)
[2018-11-15] MEDS: Propranolol TAB* 10 MG PO SCH (12:28)
[2018-11-15] MEDS: Sertraline* 100 MG TAB PO SCH (12:28)
[2018-11-15] MEDS: Ondansetron ODT TAB* 4 MG SL SCH (12:28)
[2018-11-15] MEDS: Tiotropium CAP.INH* CAP.INH/18 MCG (USE ORDER SET !) INH SCH (12:29)
[2018-11-15] MEDS: ELLURA PO SCH (12:31)
[2018-11-15] MEDS: PROBIOTIC PO SCH (12:31)
[2018-11-15] MEDS: Scopolamine 1.5 mg* PATCH TRANSDERM SCH (14:23)
[2018-11-15] MEDS: Ibuprofen TAB* 400 MG PO PRN (15:54)
[2018-11-15] MEDS: Bisacodyl SUPP* 10 MG SUPP PR PRN (21:19)
[2018-11-15] MEDS: Tamsulosin CAP* 0.4 MG PO SCH (21:54)
[2018-11-15] MEDS: Senna TAB 8.6 mg* TAB PO SCH (21:57)
[2018-11-15] MEDS: Mirtazapine TAB* 15 MG PO SCH (21:58)
[2018-11-16] MEDS: Cephalexin CAP* 500 MG PO SCH ×3 (03:35→19:24)
[2018-11-16 03:53] LABS: Urine Appearance Cloudy; Urine Bacteria 1+ (Absent); Urine Bilirubin Negative (Negative); Urine Blood Negative (Negative); Urine Color Yellow; Urine Glucose Negative (Negative); Urine Ketones Negative (Negative); Urine Nitrite Negative (Negative); Urine Protein Negative (Negative); Urine Red Blood Cell 2+(6-10/hpf) (Absent); Urine Specific Gravity 1.009 (1.010-1.030); Urine Squamous Epithelial Cell Present (Absent); Urine Urobilinogen Negative (Negative); Urine White Blood Cell 3+(>20/hpf) (Absent)
[2018-11-16] MEDS: Heparin VIAL(*) 5000 UNITS/ML VIAL (FIVE THOUSAND) SUBCUT SCH ×3 (04:43→21:30)
[2018-11-16 05:11] LABS: BUN/Creatinine Ratio 11.8 (8-20); Calcium 11.9 mg/dL (8.6-10.3); EGFR African American 59.2 (>60); Potassium 3.7 mmol/L (3.5-5.0)
[2018-11-16] MEDS: Ondansetron ODT TAB* 4 MG SL SCH ×2 (07:41→10:42)
[2018-11-16] MEDS: Carbidopa/Levodop 25/100 MG TAB(*) PO SCH ×3 (08:30→17:48)
[2018-11-16] MEDS: clonazePAM TAB(*) 0.5 MG PO SCH ×3 (08:32→17:46)
[2018-11-16] MEDS: Mometasone/Formoter 200/5 MDI INH SCH ×2 (08:37→20:11)
[2018-11-16] MEDS: Tiotropium CAP.INH* CAP.INH/18 MCG (USE ORDER SET !) INH SCH (08:37)
[2018-11-16] MEDS: Sertraline* 100 MG TAB PO SCH (09:31)
[2018-11-16] MEDS: Polyethylene Glycol 3350* 17 GM PACKET PO SCH (09:32)
[2018-11-16] MEDS: Lithium Carbonate TAB* 300 MG PO SCH ×2 (09:35→20:13)
[2018-11-16] MEDS: lamoTRIgine TAB(*) 100 MG PO SCH ×2 (09:35→20:15)
[2018-11-16] MEDS: Propranolol TAB* 10 MG PO SCH (09:36)
[2018-11-16] MEDS: Pantoprazole TAB * 40 MG TAB PO SCH (09:36)
[2018-11-16] MEDS: Docusate CAP* 100 MG PO SCH ×2 (09:37→21:30)
[2018-11-16] MEDS: Aspirin EC TAB* 81 MG TAB.EC PO SCH (10:36)
[2018-11-16] MEDS: Cyanocobalamin TAB* 500 MCG PO SCH ×2 (10:36→21:32)
--- NOTE | 2018-11-16 10:49 | PN ---
Progress Note Date of Service: 11/16/18 Note: MERVIN MCRAE was visited. Nursing and therapy notes read and reviewed. Not feeling nauseous this morning. Still no BM but has some mucous. I had discussed with her checking abdominal x-ray since she may not have any stool to give given her poor oral intake the last week. He agreed. She is retaining urine again intermittently. Current Medications: Active Medications Generic Name Dose Route Start Last Admin Trade Name Freq PRN Reason Stop Dose Admin Acetaminophen 650 mg 10/31/18 11:30 11/13/18 14:24 Tylenol Tab* PO 650 mg Q6H PRN Administration FEVER/PAIN Aspirin 81 mg 11/01/18 09:00 11/16/18 10:36 Aspirin Ec Tab* PO 81 mg DAILY EDVIN Administration Bisacodyl 10 mg 11/12/18 16:17 11/15/18 21:19 Dulcolax Supp* [place] 10 mg DAILY PRN Administration CONSTIPATION Carbidopa/Levodopa 3 tab 11/05/18 13:00 11/16/18 08:30 Sinemet 25/100 Tab(*) PO 3 tab 0730,1300,1730 EDVIN Administration Cephalexin HCl 500 mg 11/14/18 18:00 11/16/18 10:36 Keflex Cap* PO 500 mg Q8H EDVIN Administration Clonazepam 0.5 mg 11/04/18 07:30 11/16/18 08:32 Klonopin Tab(*) PO 0.5 mg 0730,1300,1730 EDVIN Administration Clonazepam 0.5 mg 11/03/18 21:52 11/03/18 22:23 Klonopin Tab(*) PO 0.5 mg Q24H PRN Administration ANXIETY Cyanocobalamin 500 mcg 10/31/18 21:00 11/16/18 10:36 Vitamin B12 Tab* PO 500 mcg BID EDVIN Administration Docusate Sodium 100 mg 10/31/18 21:00 11/16/18 09:37 Colace Cap* PO 100 mg BID EDVIN Administration Heparin Sodium (Porcine) 5,000 units 10/31/18 14:00 11/16/18 04:43 Heparin Vial(*) SUBCUT 5,000 units Q8HR EDVIN Administration Dextrose/Sodium Chloride 1,000 mls @ 75 mls/hr 11/12/18 17:00 11/12/18 19:28 D5ns 0.9% 1000 Ml Bag* IV 75 mls/hr PER RATE EDVIN Administration Ibuprofen 400 mg 11/09/18 09:51 11/15/18 15:54 Motrin Tab* PO 400 mg Q6H PRN Administration HEADACHE Lamotrigine 100 mg 10/31/18 21:00 11/16/18 09:35 Lamictal Tab(*) PO 100 mg BID EDVIN Administration [place] Carbonate 300 mg 10/31/18 21:00 11/16/18 09:35 [place] Carbonate Tab* PO 300 mg BID EDVIN Administration Magnesium Hydroxide 30 ml 11/12/18 16:18 11/15/18 07:41 Milk Of Magnesia Liq* PO 30 ml Q6H PRN Administration CONSTIPATION Mirtazapine 15 mg 11/03/18 21:00 11/15/18 21:58 Remeron Tab* PO 15 mg BEDTIME EDVIN Administration Mometasone Furoate/Formoterol Fumar 2 puff 10/31/18 21:00 11/16/18 08:37 Dulera 200/5 Mdi* INH 2 puff BID EDVIN Administration Pto: (Ellura 1 Cap) 1 cap 11/04/18 12:00 11/15/18 12:31 PO Not Given 1200 EDVIN Pto: (Probiotic 10 1 cap 11/04/18 12:00 11/15/18 12:31 Cap) PO Not Given 1200 EDVIN Ondansetron HCl 4 mg 11/01/18 09:00 11/15/18 07:40 Zofran Odt Tab* PO 4 mg Q4H PRN Administration NAUSEA Ondansetron HCl 4 mg 11/15/18 10:30 11/16/18 07:41 Zofran Odt Tab* SL 4 mg 0700,1030 EDVIN Administration Pantoprazole Sodium 40 mg 11/01/18 09:00 11/16/18 09:36 Protonix Tab* PO 40 mg DAILY EDVIN Administration Polyethylene Glycol/Electrolytes 17 gm 11/14/18 09:00 11/16/18 09:32 Miralax* PO 17 gm DAILY EDVIN Administration Propranolol HCl 10 mg 11/01/18 09:00 11/16/18 09:36 Inderal Tab* PO 10 mg DAILY EDVIN Administration Scopolamine 1 patch 11/15/18 13:00 11/15/18 14:23 Transderm-Scop 1.5 Mg Patch* TRANSDERM 1 patch Q72H EDVIN Administration Senna 2 tab 11/03/18 21:00 11/15/18 21:57 Senokot Tab* PO 2 tab BEDTIME EDVIN Administration Sertraline HCl 150 mg 11/01/18 09:00 11/16/18 09:31 Zoloft* PO 150 mg DAILY EDVIN Administration Sodium Biphosphate/Sodium Phosphate 1 bottle 11/14/18 08:37 11/14/18 13:02 Fleet Enema* [place] 1 bottle DAILY PRN Administration CONSTIPATION Sodium Chloride 1 spray 11/09/18 09:51 11/11/18 18:14 Sodium Chloride 0.65% Nasal [place]* BOTH NARES 1 spray Q4H PRN Administration CONGESTION Tamsulosin HCl 0.4 mg 10/31/18 21:00 11/15/18 21:54 Flomax Cap* PO 0.4 mg BEDTIME EDVIN Administration Tiotropium [place] 1 cap 11/01/18 09:00 11/16/18 08:37 Spiriva Cap.Inh* INH 1 cap DAILY EDVIN Administration Vital Signs: Vital Signs Temp Pulse Resp BP Pulse Ox 98.4 F 66 14 112/68 92 11/16/18 05:15 11/16/18 05:15 11/16/18 08:32 11/16/18 05:15 11/16/18 05:15 Lab Results: Laboratory Results - last 24 hr 11/16/18 11/16/18 03:40 04:44 Sodium 133 L Potassium 3.7 Chloride 104 Carbon Dioxide 24 Anion Gap 5 BUN 13 Creatinine 1.10 H Est GFR ( Amer) 59.2 Est GFR (Non-Af Amer) 49.0 BUN/Creatinine Ratio 11.8 Glucose 114 H Calcium 11.9 H Urine Color Yellow Urine Appearance Cloudy Urine pH 8.0 Ur Specific [place] 1.009 L Urine Protein Negative Urine Ketones Negative Urine Blood Negative Urine Nitrate Negative Urine Bilirubin Negative Urine Urobilinogen Negative Ur Leukocyte Esterase 2+ A Urine WBC (Auto) 3+(>20/hpf) A Urine RBC (Auto) 2+(6-10/hpf) A Ur Squamous Epith Cells Present A Urine Bacteria 1+ A Hyaline Casts Present A Urine Glucose Negative Exam: GENERAL: No acute distress. alert and appropriate. LUNGS: Clear to auscultation bilaterally with decreased breath sounds HEART: regular rate and rhythm ABDOMEN: Soft, +BS, distended in lower abdomen (likley bladder) with some tenderness. EXTREMITIES: no edema NEUROLOGIC: Motor 5/5 BLE with normal sensation. Assessment/Plan: 1. Parkinson's Disease: Continue Sinemet 2. Bipolar Disease: [place]/Lamictal 3. Nausea: Scopalomine patch started 11/15 and better at the moment. Zofran prn and scheduled at 07 and 1030. Seen [address] Dr. Bautista last week. Give 1L IVF. 4. Urinary Tract Infection/Urine retention: Cipro d/c'd and started Keflex 500 mg Q8h, day 3/7. Retaining again today. Held off on espinoza yesterday when she eventually went, but this is an issue again this morning. Espinoza to go back in. declined intermittent cath. 5. COPD: Spiriva/Dulera. Oxygen prn. Saline ns prn congestion. 6. DVT Prophylaxis: Heparin 7. Anxiety: Scheduled Klonopin 8. Advance Directives: Full code. is surrogate decision maker 9. Constipation: Check abdominal x-ray today. No BM since last week but poor po intake. Back on daily miralax after GI consult. Dulcolax suppository prn. MOM prn. 10. Intermittent headaches: allow ibuprofen prn. 11. Cr slightly elevated: may be due to urine retention or keflex. I d/w . Marilia. recheck Sunday11/16/18 10:44
[2018-11-16] MEDS ORDERED: NS 0.9% 1000 ML** 1,000 ML IV SCH (11:00)
[2018-11-16] MEDS ORDERED: Mineral Oil ENEMA* 1 BOTTLE PR ONE (11:40)
[2018-11-16] MEDS: ELLURA PO SCH (12:46)
[2018-11-16] MEDS: PROBIOTIC PO SCH (12:46)
[2018-11-16] MEDS: Ibuprofen TAB* 400 MG PO PRN (12:58)
[2018-11-16] MEDS: Mirtazapine TAB* 15 MG PO SCH (20:14)
[2018-11-16] MEDS: Tamsulosin CAP* 0.4 MG PO SCH (20:14)
[2018-11-16] MEDS: Senna TAB 8.6 mg* TAB PO SCH (21:30)
[2018-11-17] MEDS: Cephalexin CAP* 500 MG PO SCH ×3 (02:24→16:09)
[2018-11-17] MEDS: Heparin VIAL(*) 5000 UNITS/ML VIAL (FIVE THOUSAND) SUBCUT SCH ×3 (06:02→23:04)
[2018-11-17] MEDS: Ondansetron ODT TAB* 4 MG SL SCH ×2 (06:37→10:33)
[2018-11-17] MEDS: Carbidopa/Levodop 25/100 MG TAB(*) PO SCH ×3 (07:50→15:59)
[2018-11-17] MEDS: clonazePAM TAB(*) 0.5 MG PO SCH ×3 (07:50→15:59)
[2018-11-17] MEDS: Mometasone/Formoter 200/5 MDI INH SCH ×2 (08:24→20:16)
[2018-11-17] MEDS: Tiotropium CAP.INH* CAP.INH/18 MCG (USE ORDER SET !) INH SCH (08:24)
[2018-11-17] MEDS: Sertraline* 100 MG TAB PO SCH (08:58)
[2018-11-17] MEDS: Lithium Carbonate TAB* 300 MG PO SCH ×2 (09:00→20:17)
[2018-11-17] MEDS: Polyethylene Glycol 3350* 17 GM PACKET PO SCH (09:00)
[2018-11-17] MEDS: lamoTRIgine TAB(*) 100 MG PO SCH ×2 (09:00→20:17)
[2018-11-17] MEDS: Pantoprazole TAB * 40 MG TAB PO SCH (09:09)
[2018-11-17] MEDS: Docusate CAP* 100 MG PO SCH ×2 (09:09→21:44)
[2018-11-17] MEDS: Cyanocobalamin TAB* 500 MCG PO SCH ×2 (09:10→21:44)
[2018-11-17] MEDS: Aspirin EC TAB* 81 MG TAB.EC PO SCH (09:10)
--- NOTE | 2018-11-17 09:30 | PN ---
Progress Note Date of Service: 11/17/18 Note: MERVIN MCRAE was visited. Nursing notes read and reviewed. No nausea yesterday or this morning. Had some blueberries this morning and ordered some cereal. No results from mineral oil enema yesterday. >600ml out when espinoza inserted yesterday. Less abdominal discomfort now. No chest pain or shortness of breath. Current Medications: Active Medications Generic Name Dose Route Start Last Admin Trade Name Freq PRN Reason Stop Dose Admin Acetaminophen 650 mg 10/31/18 11:30 11/13/18 14:24 Tylenol Tab* PO 650 mg Q6H PRN Administration FEVER/PAIN Aspirin 81 mg 11/01/18 09:00 11/17/18 09:10 Aspirin Ec Tab* PO 81 mg DAILY EDVIN Administration Bisacodyl 10 mg 11/12/18 16:17 11/15/18 21:19 Dulcolax Supp* [place] 10 mg DAILY PRN Administration CONSTIPATION Carbidopa/Levodopa 3 tab 11/05/18 13:00 11/17/18 07:50 Sinemet 25/100 Tab(*) PO 3 tab 0730,1300,1730 EDVIN Administration Cephalexin HCl 500 mg 11/14/18 18:00 11/17/18 02:24 Keflex Cap* PO 500 mg Q8H EDVIN Administration Clonazepam 0.5 mg 11/04/18 07:30 11/17/18 07:50 Klonopin Tab(*) PO 0.5 mg 0730,1300,1730 EDVIN Administration Clonazepam 0.5 mg 11/03/18 21:52 11/03/18 22:23 Klonopin Tab(*) PO 0.5 mg Q24H PRN Administration ANXIETY Cyanocobalamin 500 mcg 10/31/18 21:00 11/17/18 09:10 Vitamin B12 Tab* PO 500 mcg BID EDVIN Administration Docusate Sodium 100 mg 10/31/18 21:00 11/17/18 09:09 Colace Cap* PO 100 mg BID EDVIN Administration Heparin Sodium (Porcine) 5,000 units 10/31/18 14:00 11/17/18 06:02 Heparin Vial(*) SUBCUT 5,000 units Q8HR EDVIN Administration Dextrose/Sodium Chloride 1,000 mls @ 75 mls/hr 11/12/18 17:00 11/12/18 19:28 D5ns 0.9% 1000 Ml Bag* IV 75 mls/hr PER RATE EDVIN Administration Ibuprofen 400 mg 11/09/18 09:51 11/16/18 12:58 Motrin Tab* PO 400 mg Q6H PRN Administration HEADACHE Lamotrigine 100 mg 10/31/18 21:00 11/17/18 09:00 Lamictal Tab(*) PO 100 mg BID EDVIN Administration [place] Carbonate 300 mg 10/31/18 21:00 11/17/18 09:00 [place] Carbonate Tab* PO 300 mg BID EDVIN Administration Magnesium Hydroxide 30 ml 11/12/18 16:18 11/15/18 07:41 Milk Of Magnesia Liq* PO 30 ml Q6H PRN Administration CONSTIPATION Mirtazapine 15 mg 11/03/18 21:00 11/16/18 20:14 Remeron Tab* PO 15 mg BEDTIME EDVIN Administration Mometasone Furoate/Formoterol Fumar 2 puff 10/31/18 21:00 11/17/18 08:24 Dulera 200/5 Mdi* INH 2 puff BID EDVIN Administration Pto: (Ell[place] 1 Cap) 1 cap 11/04/18 12:00 11/16/18 12:46 PO 1 cap 1200 EDVIN Administration Pto: (Probiotic 10 1 cap 11/04/18 12:00 11/16/18 12:46 Cap) PO 1 cap 1200 EDVIN Administration Ondansetron HCl 4 mg 11/01/18 09:00 11/15/18 07:40 Zofran Odt Tab* PO 4 mg Q4H PRN Administration NAUSEA Ondansetron HCl 4 mg 11/15/18 10:30 11/17/18 06:37 Zofran Odt Tab* SL 4 mg 0700,1030 EDVIN Administration Pantoprazole Sodium 40 mg 11/01/18 09:00 11/17/18 09:09 Protonix Tab* PO 40 mg DAILY EDVIN Administration Polyethylene Glycol/Electrolytes 17 gm 11/14/18 09:00 11/17/18 09:00 Miralax* PO 17 gm DAILY EDVIN Administration Propranolol HCl 10 mg 11/01/18 09:00 11/16/18 09:36 Inderal Tab* PO 10 mg DAILY EDVIN Administration Scopolamine 1 patch 11/15/18 13:00 11/15/18 14:23 Transderm-Scop 1.5 Mg Patch* TRANSDERM 1 patch Q72H EDVIN Administration Senna 2 tab 11/03/18 21:00 11/16/18 21:30 Senokot Tab* PO 2 tab BEDTIME EDVIN Administration Sertraline HCl 150 mg 11/01/18 09:00 11/17/18 08:58 Zoloft* PO 150 mg DAILY EDVIN Administration Sodium Biphosphate/Sodium Phosphate 1 bottle 11/14/18 08:37 11/14/18 13:02 Fleet Enema* [place] 1 bottle DAILY PRN Administration CONSTIPATION Sodium Chloride 1 spray 11/09/18 09:51 11/11/18 18:14 Sodium Chloride 0.65% Nasal [place]* BOTH NARES 1 spray Q4H PRN Administration CONGESTION Tamsulosin HCl 0.4 mg 10/31/18 21:00 11/16/18 20:14 Flomax Cap* PO 0.4 mg BEDTIME EDVIN Administration Tiotropium [place] 1 cap 11/01/18 09:00 11/17/18 08:24 Spiriva Cap.Inh* INH 1 cap DAILY EDVIN Administration Vital Signs: Vital Signs Temp Pulse Resp BP Pulse Ox 98.7 F 67 14 122/65 92 11/17/18 06:44 11/17/18 08:24 11/17/18 08:24 11/17/18 06:44 11/17/18 08:24 Exam: GENERAL: No acute distress. alert and appropriate. LUNGS: Clear to auscultation bilaterally with decreased breath sounds HEART: regular rate and rhythm ABDOMEN: Soft, +BS, non-distended, mild LLQ tender EXTREMITIES: no edema NEUROLOGIC: Motor 5/5 BLE with normal sensation. Assessment/Plan: 1. Parkinson's Disease: Continue Sinemet 2. Bipolar Disease: [place]/Lamictal 3. Nausea: Scopalomine patch started 11/15 and better. Zofran prn and scheduled at 07 and 1030. Seen by Dr. Bautista last week. Received 500cc NS 11/16 before IV pull out by patient accidentally. Encourage her to eat. 4. Urinary Tract Infection/Urine retention: Cipro d/c'd and started Keflex 500 mg Q8h, day 4/7. Urine retention returned and espinoza back in 11/16. I d/w keeping in espinoza for 2 weeks to decompress bladder and f/u with Dr. Kim as an outpatient. He wants to take it out again once antibiotics are done. declined intermittent cath here and training his aides. 5. COPD: Spiriva/Dulera. Oxygen prn. Saline ns prn congestion. 6. DVT Prophylaxis: Heparin 7. Anxiety: Scheduled Klonopin 8. Advance Directives: Full code. is surrogate decision maker 9. Constipation: Abdominal x-ray 11/16 did not show any pathologic dilation. Visualization of area of rectum at time was limited by her distended bladder. No BM since last week but poor po intake and advised she needs to eat more. Back on daily miralax after GI consult. Had mineral oil enema 11/16 with no results. Dulcolax suppository prn. MOM prn. 10. Intermittent headaches: allow ibuprofen prn. 11. Cr slightly elevated: may be due to urine retention or keflex. I d/w . Marilia. recheck Sunday11/17/18 09:25
[2018-11-17] MEDS: Propranolol TAB* 10 MG PO SCH (09:49)
[2018-11-17] MEDS: ELLURA PO SCH (12:14)
[2018-11-17] MEDS: PROBIOTIC PO SCH (12:14)
[2018-11-17] MEDS: Tamsulosin CAP* 0.4 MG PO SCH (20:17)
[2018-11-17] MEDS: Mirtazapine TAB* 15 MG PO SCH (20:17)
[2018-11-17] MEDS: Senna TAB 8.6 mg* TAB PO SCH (21:44)
[2018-11-18] MEDS: Cephalexin CAP* 500 MG PO SCH ×3 (02:30→17:37)
[2018-11-18] MEDS: Heparin VIAL(*) 5000 UNITS/ML VIAL (FIVE THOUSAND) SUBCUT SCH ×3 (05:42→21:22)
[2018-11-18 06:15] LABS: BUN/Creatinine Ratio 12.3 (8-20); Calcium 11.4 mg/dL (8.6-10.3); EGFR African American 61.8 (>60); EGFR Non-African American 51.1 (>60); Potassium 3.9 mmol/L (3.5-5.0)
[2018-11-18] MEDS: Ondansetron ODT TAB* 4 MG SL SCH ×2 (06:33→10:43)
[2018-11-18] MEDS: clonazePAM TAB(*) 0.5 MG PO SCH ×3 (07:17→17:37)
[2018-11-18] MEDS: Carbidopa/Levodop 25/100 MG TAB(*) PO SCH ×3 (07:17→17:36)
[2018-11-18] MEDS: Polyethylene Glycol 3350* 17 GM PACKET PO SCH (09:01)
[2018-11-18] MEDS: Sertraline* 100 MG TAB PO SCH (09:03)
[2018-11-18] MEDS: Lithium Carbonate TAB* 300 MG PO SCH ×2 (09:05→21:13)
[2018-11-18] MEDS: Pantoprazole TAB * 40 MG TAB PO SCH (09:05)
[2018-11-18] MEDS: Propranolol TAB* 10 MG PO SCH (09:05)
[2018-11-18] MEDS: lamoTRIgine TAB(*) 100 MG PO SCH ×2 (09:07→21:12)
[2018-11-18] MEDS: Tiotropium CAP.INH* CAP.INH/18 MCG (USE ORDER SET !) INH SCH (09:45)
[2018-11-18] MEDS: Mometasone/Formoter 200/5 MDI INH SCH ×2 (09:47→21:19)
[2018-11-18] MEDS: Docusate CAP* 100 MG PO SCH ×2 (10:37→21:16)
[2018-11-18] MEDS: Aspirin EC TAB* 81 MG TAB.EC PO SCH (10:37)
[2018-11-18] MEDS: Cyanocobalamin TAB* 500 MCG PO SCH ×2 (10:37→21:15)
[2018-11-18] MEDS: PROBIOTIC PO SCH (12:01)
[2018-11-18] MEDS: ELLURA PO SCH (12:01)
[2018-11-18] MEDS: Scopolamine 1.5 mg* PATCH TRANSDERM SCH (14:19)
[2018-11-18] MEDS: Ibuprofen TAB* 400 MG PO PRN ×2 (16:16→23:24)
--- NOTE | 2018-11-18 19:53 | PN ---
Progress Note Date of Service: 11/18/18 Note: MERVIN MCRAE was visited. Therapy notes read and reviewed. No nausea, but no BM either. Will start Lactulose every 6 hours until BM Current Medications: Active Medications Generic Name Dose Route Start Last Admin Trade Name Freq PRN Reason Stop Dose Admin Acetaminophen 650 mg 10/31/18 11:30 11/13/18 14:24 Tylenol Tab* PO 650 mg Q6H PRN Administration FEVER/PAIN Aspirin 81 mg 11/01/18 09:00 11/18/18 10:37 Aspirin Ec Tab* PO 81 mg DAILY EDVIN Administration Bisacodyl 10 mg 11/12/18 16:17 11/15/18 21:19 Dulcolax Supp* [place] 10 mg DAILY PRN Administration CONSTIPATION Carbidopa/Levodopa 3 tab 11/05/18 13:00 11/18/18 17:36 Sinemet 25/100 Tab(*) PO 3 tab 0730,1300,1730 EDVIN Administration Cephalexin HCl 500 mg 11/14/18 18:00 11/18/18 17:37 Keflex Cap* PO 500 mg Q8H EDVIN Administration Clonazepam 0.5 mg 11/04/18 07:30 11/18/18 17:37 Klonopin Tab(*) PO 0.5 mg 0730,1300,1730 EDVIN Administration Clonazepam 0.5 mg 11/03/18 21:52 11/03/18 22:23 Klonopin Tab(*) PO 0.5 mg Q24H PRN Administration ANXIETY Cyanocobalamin 500 mcg 10/31/18 21:00 11/18/18 10:37 Vitamin B12 Tab* PO 500 mcg BID EDVIN Administration Docusate Sodium 100 mg 10/31/18 21:00 11/18/18 10:37 Colace Cap* PO 100 mg BID EDVIN Administration Heparin Sodium (Porcine) 5,000 units 10/31/18 14:00 11/18/18 14:17 Heparin Vial(*) SUBCUT 5,000 units Q8HR EDVIN Administration Dextrose/Sodium Chloride 1,000 mls @ 75 mls/hr 11/12/18 17:00 11/12/18 19:28 D5ns 0.9% 1000 Ml Bag* IV 75 mls/hr PER RATE EDVIN Administration Ibuprofen 400 mg 11/09/18 09:51 11/18/18 16:16 Motrin Tab* PO 400 mg Q6H PRN Administration HEADACHE Lactulose 30 ml 11/18/18 20:00 Lactulose* PO Q6H EDVIN Lamotrigine 100 mg 10/31/18 21:00 11/18/18 09:07 Lamictal Tab(*) PO 100 mg BID EDVIN Administration [place] Carbonate 300 mg 10/31/18 21:00 11/18/18 09:05 [place] Carbonate Tab* PO 300 mg BID EDVIN Administration Magnesium Hydroxide 30 ml 11/12/18 16:18 11/15/18 07:41 Milk Of Magnesia Liq* PO 30 ml Q6H PRN Administration CONSTIPATION Mirtazapine 15 mg 11/03/18 21:00 11/17/18 20:17 Remeron Tab* PO 15 mg BEDTIME EDVIN Administration Mometasone Furoate/Formoterol Fumar 2 puff 10/31/18 21:00 11/18/18 09:47 Dulera 200/5 Mdi* INH 2 puff BID EDVIN Administration Pto: ([place] 1 Cap) 1 cap 11/04/18 12:00 11/18/18 12:01 PO 1 cap 1200 EDVIN Administration Pto: (Probiotic 10 1 cap 11/04/18 12:00 11/18/18 12:01 Cap) PO 1 cap 1200 EDVIN Administration Ondansetron HCl 4 mg 11/01/18 09:00 11/15/18 07:40 Zofran Odt Tab* PO 4 mg Q4H PRN Administration NAUSEA Ondansetron HCl 4 mg 11/15/18 10:30 11/18/18 10:43 Zofran Odt Tab* SL 4 mg 0700,1030 EDVIN Administration Pantoprazole Sodium 40 mg 11/01/18 09:00 11/18/18 09:05 Protonix Tab* PO 40 mg DAILY EDVIN Administration Polyethylene Glycol/Electrolytes 17 gm 11/14/18 09:00 11/18/18 09:01 Miralax* PO 17 gm DAILY EDVIN Administration Propranolol HCl 10 mg 11/01/18 09:00 11/18/18 09:05 Inderal Tab* PO 10 mg DAILY EDVIN Administration Scopolamine 1 patch 11/15/18 13:00 11/18/18 14:19 Transderm-Scop 1.5 Mg Patch* TRANSDERM 1 patch Q72H EDVIN Administration Senna 2 tab 11/03/18 21:00 11/17/18 21:44 Senokot Tab* PO 2 tab BEDTIME EDVIN Administration Sertraline HCl 150 mg 11/01/18 09:00 11/18/18 09:03 Zoloft* PO 150 mg DAILY EDVIN Administration Sodium Biphosphate/Sodium Phosphate 1 bottle 11/14/18 08:37 11/14/18 13:02 [place] Enema* [place] 1 bottle DAILY PRN Administration CONSTIPATION Sodium Chloride 1 spray 11/09/18 09:51 11/11/18 18:14 Sodium Chloride 0.65% Nasal [place]* BOTH NARES 1 spray Q4H PRN Administration CONGESTION Tamsulosin HCl 0.4 mg 10/31/18 21:00 11/17/18 20:17 Flomax Cap* PO 0.4 mg BEDTIME EDVIN Administration Tiotropium [place] 1 cap 11/01/18 09:00 11/18/18 09:45 Spiriva Cap.Inh* INH 1 cap DAILY EDVIN Administration Vital Signs: Vital Signs Temp Pulse Resp BP Pulse Ox 97.4 F 66 16 132/74 94 11/18/18 17:46 11/18/18 17:46 11/18/18 19:37 11/18/18 17:46 11/18/18 18:44 Lab Results: Laboratory Results - last 24 hr 11/18/18 05:27 Sodium 135 Potassium 3.9 Chloride 105 Carbon Dioxide 25 Anion Gap 5 BUN 13 Creatinine 1.06 H Est GFR ( Amer) 61.8 Est GFR (Non-Af Amer) 51.1 BUN/Creatinine Ratio 12.3 Glucose 108 H Calcium 11.4 H Exam: GENERAL: No acute distress. alert and appropriate. LUNGS: Clear to auscultation bilaterally with decreased breath sounds HEART: regular rate and rhythm ABDOMEN: Soft, +BS, non-distended, mild LLQ tender EXTREMITIES: no edema NEUROLOGIC: Motor 5/5 BLE with normal sensation. Assessment/Plan: 1. Parkinson's Disease: Continue Sinemet 2. Bipolar Disease: [place]/Lamictal 3. Nausea: Scopalomine patch started 11/15 and better. Zofran prn and scheduled at 07 and 1030. 4. Urinary Tract Infection/Urine retention: Cipro d/c'd and started Keflex 500 mg Q8h, day 08/27. Urine retention returned and espinoza back in 11/16. 5. COPD: Spiriva/Dulera. Oxygen prn. Saline ns prn congestion. 6. DVT Prophylaxis: Heparin 7. Anxiety: Scheduled Klonopin 8. Advance Directives: Full code. is surrogate decision maker 9. Constipation: Abdominal x-ray 11/16 did not show any pathologic dilation. Visualization of area of rectum at time was limited by her distended bladder. No BM since last week but poor po intake and advised she needs to eat more. Back on daily miralax after GI consult. Had mineral oil enema 11/16 with no results. Dulcolax suppository prn. MOM prn. Lactulose Q6H 10. Intermittent headaches: allow ibuprofen prn. 11/18/18 19:54 11/18/18 19:55
[2018-11-18] MEDS: Mirtazapine TAB* 15 MG PO SCH (21:14)
[2018-11-18] MEDS: Tamsulosin CAP* 0.4 MG PO SCH (21:15)
[2018-11-18] MEDS: Senna TAB 8.6 mg* TAB PO SCH (21:16)
[2018-11-19] MEDS: Cephalexin CAP* 500 MG PO SCH ×3 (02:39→17:27)
[2018-11-19] MEDS: Ondansetron ODT TAB* 4 MG SL SCH ×2 (06:10→09:28)
[2018-11-19] MEDS: Heparin VIAL(*) 5000 UNITS/ML VIAL (FIVE THOUSAND) SUBCUT SCH ×3 (06:14→21:37)
[2018-11-19] MEDS: Tiotropium CAP.INH* CAP.INH/18 MCG (USE ORDER SET !) INH SCH (08:06)
[2018-11-19] MEDS: Mometasone/Formoter 200/5 MDI INH SCH ×2 (08:06→21:38)
[2018-11-19] MEDS: Carbidopa/Levodop 25/100 MG TAB(*) PO SCH ×3 (08:38→17:27)
[2018-11-19] MEDS: Aspirin EC TAB* 81 MG TAB.EC PO SCH (08:38)
[2018-11-19] MEDS: clonazePAM TAB(*) 0.5 MG PO SCH ×3 (08:38→18:06)
[2018-11-19] MEDS: Sertraline* 100 MG TAB PO SCH (08:39)
[2018-11-19] MEDS: lamoTRIgine TAB(*) 100 MG PO SCH ×2 (08:39→20:43)
[2018-11-19] MEDS: Docusate CAP* 100 MG PO SCH ×2 (08:39→21:21)
[2018-11-19] MEDS: Cyanocobalamin TAB* 500 MCG PO SCH ×2 (08:39→21:21)
[2018-11-19] MEDS: Lithium Carbonate TAB* 300 MG PO SCH ×2 (08:39→20:43)
[2018-11-19] MEDS: Propranolol TAB* 10 MG PO SCH (08:39)
[2018-11-19] MEDS: Pantoprazole TAB * 40 MG TAB PO SCH (08:39)
[2018-11-19] MEDS: Polyethylene Glycol 3350* 17 GM PACKET PO SCH (08:39)
[2018-11-19] MEDS: ELLURA PO SCH (12:28)
[2018-11-19] MEDS: PROBIOTIC PO SCH (12:28)
[2018-11-19] MEDS ORDERED: Sodium Phosphate ADULT ENEMA* 118 ml bottle PR ONE (12:53)
--- NOTE | 2018-11-19 12:57 | PMRUTEAM ---
PMRU: Team Meeting Current Status: Nursing: Current Status Skin Deviations [Left Buttocks Other ] Skin Deviations [Right Other Buttocks] Skin Deviations [Right Ear] Other Skin Deviations [Bilateral Abrasion,Other Buttocks] Skin Deviations [Coccyx] Other Skin Deviation Description [ redness Left Buttocks] Skin Deviation Description [ redness Right Buttocks] Skin Deviation Description [ healed Right Ear] Skin Deviation Description [ old pressure wound, purple in color Bilateral Buttocks] Skin Deviation Description [ redness Coccyx] Drain Type [Bilateral Buttocks None ] Bladder Current Status Capellan in place - draining adequete amts of urine. Pt continues to feel the urge to void Bowel Current Status Continent - 1 assist with toileting Nutrition Current Status Eats some of most meals Medication Current Status Needs reminders with medications 1 at a time Physical Therapy: Current Status Bed Mobility Assistance Contact Guard Assist Transfer Mobility Assistance Contact Guard Assist Transfer/Bed Mobility Rolling Walker Recommended Devices Ambulation Assistance Contact Guard Assist Ambulation Assistive Devices Rolling Walker Number of Feet Patient 300x2 Ambulated Ambulation Comment small shuffling steps Stairs Assistance Supervision Stairs Recommended Devices One Rail,Two Rails Number of Stairs 2x5 (15) Objective Comments step through pattern ascend/descending 3x5 steps consecutively, 2x5 with use of 2 rails, 1x5 with use of 2 hands on one rail. Attempted to ascend/ descend flight of stairs, but pt refused at this time. Occupational Therapy: Current Status Upper Body Dressing Min Assist,Mod Assist Lower Body Dressing Max Asst Bathing Mod Assist Toileting Max Asst Toileting Progress +Capellan Toilet Transfer Contact Guard Assist Shower Transfer Min Assist Eating Supervision Rec Therapy: Current Status Summary of Assessment and Recreation Assessment completed and pt. is aware Clinical Impression services. Pt. is with aides but leisure visits have continue. Provided pt. with magazines at her request. Pt. has been engaged in pet therapy as well. Treatment Goals Pt. will engage in leisure activities while on the unit. Treatment Plan Provide recreation therapy and encourage involvement. Social Work: Current Status Discharge Plan return home with home care svs and family support. Potential for Family Training Pt's attended family training Anticipated Discharge Home Destination Discharge With home care svs and family support Nutrition: Current Status Monitoring PO remains suboptimal: 0-35% of meals since 11/15. Pt awake in bed when visited; aide at bedside. Pt endorses poor appetite; still no BM since 11/08 despite bowel meds. Discussed snacks; pt prefers not to have cottage cheese anymore, but does still want the pineapple currently being sent at 3 pm. Pt also requested a cookie with 3pm snack. Pt willing to try Ensure Enlive; will send daily at B . Speech: Current Status Assessment Patient has not progressed during one-week trial of speech therapy for cognitive-communication deficits. RADIO STATION MANAGER recommends discontinue daily speech therapy. RADIO STATION MANAGER will remain involved as need to participat ein patient and family education and to consult regarding ways for caregivers to modify their communication to improve patient safety. RADIO STATION MANAGER has provided verbal and printed instruction to patient and caregivers in techniques for recalling new information and word-finding. Patient has not demonstrated the ability to use compensatory strategies to improve recall or word- finding. RADIO STATION MANAGER consulted rehabilitation therapists and nursing regarding effective communication techniques. Patient requires supervision or assstance and can safely follow simple, one-step verbal directions given moderate visual cueing. Goals: Physical Therapy: Initial Goals Bed Mobility Assistance Supervision Transfer Mobility Assistance Supervision Transfer/Bed Mobility Rolling Walker Recommended Devices Ambulation Supervision Ambulation Recommended Devices Rolling Walker Ambulation Distance 150 Stairs Assistance Supervision Stair Recommended Devices One Rail Number of Stairs flight Home Exercise Program Supervision Assistance Physical Therapy: Updated Goals Bed Mobility Assistance Supervision Transfer Mobility Assistance Contact Guard Assist Transfer/Bed Mobility Rolling Walker Recommended Devices Ambulation Assistance Contact Guard Assist Ambulation Assistive Devices Rolling Walker Ambulation Distance (ft) 150 Stairs Assistance Contact Guard Assist Stairs Recommended Devices One Rail Number of Stairs flight Home Exercise Program Supervision Assistance Occupational Therapy: Initial Goals Goals to be Completed in (Days 14-21 days ) Upper Body Bathing Routine Maximal Assist Lower Body Bathing Routine Total Assist Upper Body Dressing Routine Maximal Assist Lower Body Dressing Routine Total Assist Toilet Hygeine and Clothing Total Assist Management Routine Toilet Transfer Routine Supervision/Set Up Tub Transfer Routine Supervision/Set Up,Minimal Contact Assist Functional Transfers for ADL Supervision/Set Up Grooming Routine Supervision/Set Up Feeding Routine Supervision/Set Up Nursing: Goals Bladder Goal Continent - independent with toileting Bowel Goal Continent - independent with toileting Nutrition Goal Eats 100% of all meals Medication Goal Assistance with medications Nutrition: Goals Intervention Goals 1. pt will tolerate po intake without adverse GI effects 2. adequate po intake to maintain hydration, stable wt, and lean body mass 3. achieve and maintain serum electrolytes levels WNL 4. achieve and maintain regulated bowel pattern without c/o constipation (or diarrhea) 5. intake will promote wound healing w/o additional skin breakdown Speech: Goals Speech Goal 1 Memory Goal 1 Comments Memory Goals: Long-Term Goal: Pt will use compensatory strategies to encode and retrieve 5/5 new items after delay of 30 minutes, Independently, for independence in mobility safety, ADLs and community access. Status: Not progressing at this time. Long-Term Goal: Pt will use compensatory strategies to solve simple routine problems, for transfer and mobility safety, adaptive dressing, time and money management; with 80% accuracy, given skilled instruction, Moderate cueing, and extra time. Status: Not progressing at this time. Short-term Goals 1) STG: Patient will use compensatory strategies to encode and retrieve 3/4 new items after delay of 5 minutes, given skilled instruction, Moderate cueing, and extra time. Status: Not progressing at this time. 2) STG: Patient will use compensatory strategies to solve simple routine problems, for transfer and mobility safety, adaptive dressing, time and money management; with 80% accuracy, given skilled instruction, Maximum cueing, and extra time. Status: Patient is not progressing at time. Speech Goal 2 Language Expression Speech Goal 2 Comments Language Expression Goals: Long-Term Goal: Pt will use conversational repair strategies to cooperatively find words in structured conversation, 80% accuracy, given extra time, given moderate cueing Status: Not progressing at time. Short-Term Goal: Pt will use conversational repair strategies to cooperatively find words in structured language activities, 80% accuracy, given skilled instruction, Maximal cueing, and extra time. Status: Not progressing at time. Patient has c/o difficulty completing her sentences and recalling what she wanted to say. RADIO STATION MANAGER presented sentence starters and cued patient to complete those sentencs and continue as a story . Given moderate initial cueing faded to minimal, patient produced appropriate short completions to sentences, and plausible next steps in stories. Patient did not self-correct, but responded well to repetition as needed. Social Work: Goals Discharge Plan return home with home care svs and family support. Potential for Family Training Pt's attended family training Anticipated Discharge Home Destination Discharge With home care svs and family support Care Plan: Care Plan ADL's - Improve/Maintain Start: 10/31/18 16:26 Freq: DAILY Status: Active Target: Protocol: Activity Type Activity Date Activity User E-Sign Co-Sign Detail Recorded Client Recorded Date Recorded By Document 11/18/18 11:59 [id number] 11/18/18 11:59 [id number] 11/18/18 11:59 PMRU Outcome: ADL's/ADL Transfers Orders/Interventions Occupational Therapy Evaluation & Treatment Communication Tool in Patient Room Device Yes Address Deficits Secondary To: Parkinson's exacerbation Patient to receive OT 5x/wk for 60-120 Therex min/day Self Care Management Group Therapy UE/LE ADL's with Assist Yes: S-Sánchez ADL Transfers with Assist Yes: S Toileting: Transfers,Clothing Management Yes: S-Sánchez ,Hygeine w/Assist Light Kitchen/Laundry w/Assist No Progression Toward Outcome/Goals Progressing Outcome/Goals Met Pt participated well in treatment session with cueing and assistance to position walker with transfers as needed, use of gait belt necessary as pt does attempt to sit too soon and requires cues and physical assist this session to maintain balance to complete transfer safely . Communication-Improve/Maintain Start: 10/31/18 12:00 Freq: DAILY Status: Active Target: Protocol: Activity Type Activity Date Activity User E-Sign Co-Sign Detail Recorded Client Recorded Date Recorded By Document 11/19/18 00:55 [id number] 11/19/18 00:56 [id number] 11/19/18 00:55 PMRU Outcome: Communication/Cognitive Status Outcome/Goals Other Other Outcomes/Goals Memory Goals: Long-Term Goal: Pt will use compensatory strategies to encode and retrieve 5/5 new items after delay of 30 minutes, Independently, for independence in mobility safety, ADLs and community access. Status: Not progressing Long-Term Goal: Pt will use compensatory strategies to solve simple routine problems, for transfer and mobility safety , adaptive dressing, time and money management; with 80% accuracy, given skilled instruction, Moderate cueing , and extra time. Status: Not progressing Short-term Goals 1) STG: Patient will use compensatory strategies to encode and retrieve 3/4 new items after delay of 5 minutes, given skilled instruction, Moderate cueing , and extra time. Status: Not progressing 2) STG: Patient will use compensatory strategies to solve simple routine problems, for transfer and mobility safety , adaptive dressing, time and money management; with 80% accuracy, given skilled instruction, Maximum cueing, and extra time . Status: Not progressing Language Expression Goals: Long-Term Goal: Pt will use conversational repair strategies to cooperatively find words in structured conversation, 80% accuracy, given extra time, givne moderate cueing Status: Progressing slowly as expected Short-Term Goal : Pt will use conversational repair strategies to cooperatively find words in structured language activities, 80% accuracy, given skilled instruction, Maximal cueing, and extra time . Status: Progressing slowly as expected Progression Toward Outcomes/Goals Not Progressing DVT Prophylaxis- Improve/Maintain Start: 10/31/18 12:00 Freq: QSHIFT Status: Complete Target: Protocol: Activity Type Activity Date Activity User E-Sign Co-Sign Detail Recorded Client Recorded Date Recorded By Document 11/14/18 16:03 [id number] 11/14/18 16:04 [id number] 11/14/18 16:03 PMRU Outcome: DVT Prophylaxis Outcome/Goals Remains Free of DVT Complies with DVT Prophylaxis /Treatment TEDS Stockings on Every AM, Off at HS Outcome/Goals Met Remains Free of DVT Discharge Planning - Improve/Maintain Start: 10/31/18 12:00 Freq: DAILY Status: Active Target: Protocol: Activity Type Activity Date Activity User E-Sign Co-Sign Detail Recorded Client Recorded Date Recorded By Document 11/19/18 00:55 [id number] 11/19/18 00:56 [id number] 11/19/18 00:55 PMRU Outcome: Discharge Planning Update Patient Family Yes Outcome/Goals Demonstrates Understanding of Discharge Plan Progression Toward Outcome/Goals Progressing Education-Improve/Maintain Start: 10/31/18 12:00 Freq: QSHIFT Status: Active Target: Protocol: Activity Type Activity Date Activity User E-Sign Co-Sign Detail Recorded Client Recorded Date Recorded By Document 11/19/18 00:55 [id number] 11/19/18 00:56 [id number] 11/19/18 00:55 PMRU Outcome: Education Outcome/Goals Demonstrate/ Verbalize Understanding of Written Discharge Instructions Progression Toward Outcome/Goals Progressing /GI-Improve/Maintain Start: 10/31/18 12:00 Freq: QSHIFT Status: Active Target: Protocol: Activity Type Activity Date Activity User E-Sign Co-Sign Detail Recorded Client Recorded Date Recorded By Document 11/19/18 00:55 [id number] 11/19/18 00:56 [id number] 11/19/18 00:55 PMRU Outcome: Genitourinary/ Gastrointestinal Genitourinary- Outcome/Goals Maintain/ Achieve Urinary Continence Maintain/ Achieve Adequate Urinary Output Gastrointestinal-Outcome/Goals Maintain/ Achieve Bowel Regularity in Accordance with Pt's Baseline Bowel Regularity at Home Laxatives as Ordered Other Progression Toward Outcome/Goals - Not Progressing Progression Toward Outcome/Goals - GI Not Progressing Outcome/Goals Met Comment Capellan in place Medication Administration Start: 10/31/18 12:00 Freq: QSHIFT Status: Active Target: Protocol: Activity Type Activity Date Activity User E-Sign Co-Sign Detail Recorded Client Recorded Date Recorded By Document 11/19/18 00:55 [id number] 11/19/18 00:56 [id number] 11/19/18 00:55 PMRU Outcome: Medication Administration Assess Patient Knowledge/Teach Med Yes Education for all Meds Outcome/Goals Patient Independent with Medication Administration at Home Progression Towards Outcome/Goals Progressing Is Patient Going Home on Lovenox? No Mobility- Improve/Maintain Start: 11/12/18 09:20 Freq: DAILY Status: Active Target: Protocol: Activity Type Activity Date Activity User E-Sign Co-Sign Detail Recorded Client Recorded Date Recorded By Document 11/12/18 09:20 [id number] 11/12/18 09:23 [id number] 11/12/18 09:20 PMRU Outcome: Mobility Physical Therapy Evaluation and Yes Treatment Activity OOB with Assistance Yes Device Yes: walker Assistance Yes: CGA Patient to be seen 5x/wk for 60-120 min/ Therex day for: Mobility Training Gait Training Balance Outcome/Goals Maintain/ Achieve Baseline Mobility Status Improve Mobility Status Demonstrates Proper Use of Assistive Devices Free from Complications of Immobility Progression Toward Outcome/Goals Progressing Outcome/Goals Met Improve Mobility Status Free from Complications of Immobility Bed Mobility Yes: Supervision Transfers Yes: CGAx1 with walker Gait x ft Yes: CGAx1 with walker x150ft W/C Mobility x ft No Up/Down Stairs Yes: CGAx1 flight of stairs With HEP Yes: Supervision Neurological- Improve/Maintain Start: 10/31/18 12:00 Freq: QSHIFT Status: Active Target: Protocol: Activity Type Activity Date Activity User E-Sign Co-Sign Detail Recorded Client Recorded Date Recorded By Document 11/19/18 00:55 [id number] 11/19/18 00:56 [id number] 11/19/18 00:55 PMRU Outcome: Neurological Weakness/Aphasia Weakness Outcome/Goals Maintain/ Achieve Baseline Neurological Status Progression Toward Outcome/Goals Progressing Pain/Comfort- Improve/Maintain Start: 10/31/18 12:00 Freq: QSHIFT Status: Active Target: Protocol: Activity Type Activity Date Activity User E-Sign Co-Sign Detail Recorded Client Recorded Date Recorded By Document 11/19/18 00:55 [id number] 11/19/18 00:56 [id number] 11/19/18 00:55 PMRU Outcome: Pain/Comfort Outcome/Goals Demonstrates Knowledge and Use of Available Comfort Measures Maintain Comfort Level Allowing Patient to Fully Participate in Rehab Progression Toward Outcome/Goals Progressing Outcome/Goals Met Comment pain medication given for a headache Safety- Improve/Maintain Start: 10/31/18 12:00 Freq: QSHIFT Status: Active Target: Protocol: Activity Type Activity Date Activity User E-Sign Co-Sign Detail Recorded Client Recorded Date Recorded By Document 11/19/18 00:55 [id number] 11/19/18 00:56 [id number] 11/19/18 00:55 PMRU Outcome: Safety Outcome/Goals Remain Free of Injury or Harm Progression Toward Outcome/Goals Progressing Outcome/Goals Met Comment BA armed - in room Skin- Improve/Maintain Start: 10/31/18 12:00 Freq: QSHIFT Status: Active Target: Protocol: Activity Type Activity Date Activity User E-Sign Co-Sign Detail Recorded Client Recorded Date Recorded By Document 11/19/18 00:55 [id number] 11/19/18 00:56 [id number] 11/19/18 00:55 PMRU Outcome: Skin Skin Risk Level Medium Skin Orders Turn/Position q2hr While in Bed Outcome/Goals Maintain/ Improve Skin Intergrity Progression Toward Outcome/Goals Progressing Medicine Note: Length of Stay: 2-3 days Anticipated Discharge Destination: Home Tentative Discharge Date: 11/22/18 Discharged to: Home
[2018-11-19] MEDS: Ondansetron ODT TAB* 4 MG PO PRN (19:10)
--- NOTE | 2018-11-19 19:51 | PN ---
Progress Note Date of Service: 11/19/18 Note: MERVIN MCRAE was visited. Therapy notes read and reviewed. She was discussed in interdisciplinary team rounds. She has made some gains. Remains constipated. Espinoza in. Will d/c Scopolamine as it can be constipating. Continue Lactulose. GI Consult tomorrow if still no BM Current Medications: Active Medications Generic Name Dose Route Start Last Admin Trade Name Freq PRN Reason Stop Dose Admin Acetaminophen 650 mg 10/31/18 11:30 11/13/18 14:24 Tylenol Tab* PO 650 mg Q6H PRN Administration FEVER/PAIN Aspirin 81 mg 11/01/18 09:00 11/19/18 08:38 Aspirin Ec Tab* PO 81 mg DAILY EDVIN Administration Bisacodyl 10 mg 11/12/18 16:17 11/15/18 21:19 Dulcolax Supp* HI 10 mg DAILY PRN Administration CONSTIPATION Carbidopa/Levodopa 3 tab 11/05/18 13:00 11/19/18 17:27 Sinemet 25/100 Tab(*) PO 3 tab 0730,1300,1730 EDVIN Administration Cephalexin HCl 500 mg 11/14/18 18:00 11/19/18 17:27 Keflex Cap* PO 500 mg Q8H EDVIN Administration Clonazepam 0.5 mg 11/04/18 07:30 11/19/18 18:06 Klonopin Tab(*) PO 0.5 mg 0730,1300,1730 EDVIN Administration Clonazepam 0.5 mg 11/03/18 21:52 11/03/18 22:23 Klonopin Tab(*) PO 0.5 mg Q24H PRN Administration ANXIETY Cyanocobalamin 500 mcg 10/31/18 21:00 11/19/18 08:39 Vitamin B12 Tab* PO 500 mcg BID EDVIN Administration Docusate Sodium 100 mg 10/31/18 21:00 11/19/18 08:39 Colace Cap* PO 100 mg BID EDVIN Administration Heparin Sodium (Porcine) 5,000 units 10/31/18 14:00 11/19/18 14:59 Heparin Vial(*) SUBCUT 5,000 units Q8HR EDVIN Administration Dextrose/Sodium Chloride 1,000 mls @ 75 mls/hr 11/12/18 17:00 11/12/18 19:28 D5ns 0.9% 1000 Ml Bag* IV 75 mls/hr PER RATE EDVIN Administration Ibuprofen 400 mg 11/09/18 09:51 11/18/18 23:24 Motrin Tab* PO 400 mg Q6H PRN Administration HEADACHE Lactulose 30 ml 11/18/18 20:00 11/19/18 17:26 Lactulose* PO Not Given Q6H EDVIN Lamotrigine 100 mg 10/31/18 21:00 11/19/18 08:39 Lamictal Tab(*) PO 100 mg BID EDVIN Administration [place] Carbonate 300 mg 10/31/18 21:00 11/19/18 08:39 [place] Carbonate Tab* PO 300 mg BID EDVIN Administration Magnesium Hydroxide 30 ml 11/12/18 16:18 11/15/18 07:41 Milk Of Magnesia Liq* PO 30 ml Q6H PRN Administration CONSTIPATION Mirtazapine 15 mg 11/03/18 21:00 11/18/18 21:14 Remeron Tab* PO 15 mg BEDTIME EDVIN Administration Mometasone Furoate/Formoterol Fumar 2 puff 10/31/18 21:00 11/19/18 08:06 Dulera 200/5 Mdi* INH 2 puff BID EDVIN Administration Pto: ([place] 1 Cap) 1 cap 11/04/18 12:00 11/19/18 12:28 PO Not Given 1200 EDVIN Pto: (Probiotic 10 1 cap 11/04/18 12:00 11/19/18 12:28 Cap) PO Not Given 1200 EDVIN Ondansetron HCl 4 mg 11/01/18 09:00 11/19/18 19:10 Zofran Odt Tab* PO 4 mg Q4H PRN Administration NAUSEA Ondansetron HCl 4 mg 11/15/18 10:30 11/19/18 09:28 Zofran Odt Tab* SL 4 mg 0700,1030 EDVIN Administration Pantoprazole Sodium 40 mg 11/01/18 09:00 11/19/18 08:39 Protonix Tab* PO 40 mg DAILY EDVIN Administration Polyethylene Glycol/Electrolytes 17 gm 11/14/18 09:00 11/19/18 08:39 Miralax* PO 17 gm DAILY EDVIN Administration Propranolol HCl 10 mg 11/01/18 09:00 11/19/18 08:39 Inderal Tab* PO 10 mg DAILY EDVIN Administration Senna 2 tab 11/03/18 21:00 11/18/18 21:16 Senokot Tab* PO 2 tab BEDTIME EDVIN Administration Sertraline HCl 150 mg 11/01/18 09:00 11/19/18 08:39 Zoloft* PO 150 mg DAILY EDVIN Administration Sodium Biphosphate/Sodium Phosphate 1 bottle 11/20/18 09:00 Fleet Enema* HI DAILY EDVIN Sodium Chloride 1 spray 11/09/18 09:51 11/11/18 18:14 Sodium Chloride 0.65% Nasal [place]* BOTH NARES 1 spray Q4H PRN Administration CONGESTION Tamsulosin HCl 0.4 mg 10/31/18 21:00 11/18/18 21:15 Flomax Cap* PO 0.4 mg BEDTIME EDVIN Administration Tiotropium [place] 1 cap 11/01/18 09:00 11/19/18 08:06 Spiriva Cap.Inh* INH 1 cap DAILY EDVIN Administration Vital Signs: Vital Signs Temp Pulse Resp BP Pulse Ox 97.9 F 61 18 107/61 100 11/19/18 15:55 11/19/18 15:55 11/19/18 18:06 11/19/18 15:55 11/19/18 15:55 Exam: GENERAL: No acute distress. alert and appropriate. LUNGS: Clear to auscultation bilaterally with decreased breath sounds HEART: regular rate and rhythm ABDOMEN: Soft, +BS, non-distended, mild LLQ tender EXTREMITIES: no edema NEUROLOGIC: Motor 5/5 BLE with normal sensation. Assessment/Plan: 1. Parkinson's Disease: Continue Sinemet 2. Bipolar Disease: [place]/Lamictal 3. Nausea: Vomited today. D/C Scopalomine patch. D/C scheduled Zofran. 4. Urinary Tract Infection/Urine retention: Cipro d/c'd and started Keflex 500 mg Q8h, day 5/7. Urine retention returned and espinoza back in 11/16. 5. COPD: Spiriva/Dulera. Oxygen prn. Saline ns prn congestion. 6. DVT Prophylaxis: Heparin 7. Anxiety: Scheduled Klonopin 8. Advance Directives: Full code. is surrogate decision maker 9. Constipation: Back on daily miralax. Dulcolax suppository prn. MOM prn. Lactulose Q6H, enema daily, GI consult tomorrow 10. Intermittent headaches: allow ibuprofen prn. 11/19/18 19:51 11/19/18 19:54
[2018-11-19] MEDS: Tamsulosin CAP* 0.4 MG PO SCH (20:43)
[2018-11-19] MEDS: Ibuprofen TAB* 400 MG PO PRN (21:20)
[2018-11-19] MEDS: Mirtazapine TAB* 15 MG PO SCH (21:20)
[2018-11-19] MEDS: Scopolamine 1.5 mg* PATCH TRANSDERM SCH (21:25)
[2018-11-19] MEDS: Senna TAB 8.6 mg* TAB PO SCH (21:38)
[2018-11-19] MEDS: clonazePAM TAB(*) 0.5 MG PO PRN (23:36)
[2018-11-20] MEDS: Cephalexin CAP* 500 MG PO SCH ×3 (03:15→17:35)
[2018-11-20] MEDS: Heparin VIAL(*) 5000 UNITS/ML VIAL (FIVE THOUSAND) SUBCUT SCH ×3 (06:55→21:38)
[2018-11-20] MEDS: Carbidopa/Levodop 25/100 MG TAB(*) PO SCH ×3 (08:07→17:35)
[2018-11-20] MEDS: clonazePAM TAB(*) 0.5 MG PO SCH ×3 (08:08→17:41)
[2018-11-20] MEDS: Mometasone/Formoter 200/5 MDI INH SCH ×2 (08:12→21:44)
[2018-11-20] MEDS: Tiotropium CAP.INH* CAP.INH/18 MCG (USE ORDER SET !) INH SCH (08:12)
[2018-11-20] MEDS: Sertraline* 100 MG TAB PO SCH (08:59)
[2018-11-20] MEDS: Lithium Carbonate TAB* 300 MG PO SCH ×2 (09:00→21:45)
[2018-11-20] MEDS ORDERED: Sodium Phosphate ADULT ENEMA* 118 ml bottle PR SCH (09:00)
[2018-11-20] MEDS: Pantoprazole TAB * 40 MG TAB PO SCH (09:01)
[2018-11-20] MEDS: lamoTRIgine TAB(*) 100 MG PO SCH ×2 (09:01→21:36)
[2018-11-20] MEDS: Propranolol TAB* 10 MG PO SCH (09:02)
[2018-11-20] MEDS: Docusate CAP* 100 MG PO SCH ×2 (09:16→21:41)
[2018-11-20] MEDS: Aspirin EC TAB* 81 MG TAB.EC PO SCH (09:16)
[2018-11-20] MEDS: Polyethylene Glycol 3350* 17 GM PACKET PO SCH (09:16)
[2018-11-20] MEDS: Cyanocobalamin TAB* 500 MCG PO SCH ×2 (09:24→21:37)
[2018-11-20] MEDS: ELLURA PO SCH ×2 (12:15→12:26)
[2018-11-20] MEDS: PROBIOTIC PO SCH (12:16)
[2018-11-20] MEDS: Ondansetron ODT TAB* 4 MG PO PRN (12:30)
[2018-11-20] MEDS ORDERED: Sodium Phosphate ADULT ENEMA* 118 ml bottle PR PRN (16:13)
--- NOTE | 2018-11-20 18:43 | PN ---
Progress Note Date of Service: 11/20/18 Note: MERVIN MCRAE was visited. Therapy notes read and reviewed. She was able to have 2 bowel movements today. She is otherwise not eating great. Will clamp espinoza, try to remove espinoza Sunday and d/c later that afternoon after she voids. Current Medications: Active Medications Generic Name Dose Route Start Last Admin Trade Name Freq PRN Reason Stop Dose Admin Acetaminophen 650 mg 10/31/18 11:30 11/13/18 14:24 Tylenol Tab* PO 650 mg Q6H PRN Administration FEVER/PAIN Aspirin 81 mg 11/01/18 09:00 11/20/18 09:16 Aspirin Ec Tab* PO 81 mg DAILY EDVIN Administration Bisacodyl 10 mg 11/12/18 16:17 11/15/18 21:19 Dulcolax Supp* [place] 10 mg DAILY PRN Administration CONSTIPATION Carbidopa/Levodopa 3 tab 11/05/18 13:00 11/20/18 17:35 Sinemet 25/100 Tab(*) PO 3 tab 0730,1300,1730 EDVIN Administration Cephalexin HCl 500 mg 11/14/18 18:00 11/20/18 17:35 Keflex Cap* PO 500 mg Q8H EDVIN Administration Clonazepam 0.5 mg 11/04/18 07:30 11/20/18 17:41 Klonopin Tab(*) PO 0.5 mg 0730,1300,1730 EDVIN Administration Clonazepam 0.5 mg 11/03/18 21:52 11/19/18 23:36 Klonopin Tab(*) PO 0.5 mg Q24H PRN Administration ANXIETY Cyanocobalamin 500 mcg 10/31/18 21:00 11/20/18 09:24 Vitamin B12 Tab* PO 500 mcg BID EDVIN Administration Docusate Sodium 100 mg 10/31/18 21:00 11/20/18 09:16 Colace Cap* PO 100 mg BID EDVIN Administration Heparin Sodium (Porcine) 5,000 units 10/31/18 14:00 11/20/18 13:39 Heparin Vial(*) SUBCUT 5,000 units Q8HR EDVIN Administration Dextrose/Sodium Chloride 1,000 mls @ 75 mls/hr 11/12/18 17:00 11/12/18 19:28 D5ns 0.9% 1000 Ml Bag* IV 75 mls/hr PER RATE EDVIN Administration Ibuprofen 400 mg 11/09/18 09:51 11/19/18 21:20 Motrin Tab* PO 400 mg Q6H PRN Administration HEADACHE Lamotrigine 100 mg 10/31/18 21:00 11/20/18 09:01 Lamictal Tab(*) PO 100 mg BID EDVIN Administration [place] Carbonate 300 mg 10/31/18 21:00 11/20/18 09:00 [place] Carbonate Tab* PO 300 mg BID EDVIN Administration Magnesium Hydroxide 30 ml 11/12/18 16:18 11/15/18 07:41 Milk Of Magnesia Liq* PO 30 ml Q6H PRN Administration CONSTIPATION Mirtazapine 15 mg 11/03/18 21:00 11/19/18 21:20 Remeron Tab* PO Not Given BEDTIME EDVIN Mometasone Furoate/Formoterol Fumar 2 puff 10/31/18 21:00 11/20/18 08:12 Dulera 200/5 Mdi* INH 2 puff BID EDVIN Administration Pto: ([place] 1 Cap) 1 cap 11/04/18 12:00 11/20/18 12:26 PO Not Given 1200 EDVIN Pto: (Probiotic 10 1 cap 11/04/18 12:00 11/20/18 12:16 Cap) PO Not Given 1200 EDVIN Ondansetron HCl 4 mg 11/01/18 09:00 11/20/18 12:30 Zofran Odt Tab* PO 4 mg Q4H PRN Administration NAUSEA Pantoprazole Sodium 40 mg 11/01/18 09:00 11/20/18 09:01 Protonix Tab* PO 40 mg DAILY EDVIN Administration Polyethylene Glycol/Electrolytes 17 gm 11/14/18 09:00 11/20/18 09:16 Miralax* PO 17 gm DAILY EDVIN Administration Propranolol HCl 10 mg 11/01/18 09:00 11/20/18 09:02 Inderal Tab* PO 10 mg DAILY EDVIN Administration Senna 2 tab 11/03/18 21:00 11/19/18 21:38 Senokot Tab* PO Not Given BEDTIME EDVIN Sertraline HCl 150 mg 11/01/18 09:00 11/20/18 08:59 Zoloft* PO 150 mg DAILY EDVIN Administration Sodium Biphosphate/Sodium Phosphate 1 bottle 11/20/18 16:13 Fleet Enema* [place] DAILY PRN CONSTIPATION Sodium Chloride 1 spray 11/09/18 09:51 11/11/18 18:14 Sodium Chloride 0.65% Nasal [place]* BOTH NARES 1 spray Q4H PRN Administration CONGESTION Tamsulosin HCl 0.4 mg 10/31/18 21:00 11/19/18 20:43 Flomax Cap* PO 0.4 mg BEDTIME EDVIN Administration Tiotropium [place] 1 cap 11/01/18 09:00 11/20/18 08:12 Spiriva Cap.Inh* INH 1 cap DAILY EDVIN Administration Vital Signs: Vital Signs Temp Pulse Resp BP Pulse Ox 98.3 F 60 18 116/73 92 11/20/18 06:48 11/20/18 08:30 11/20/18 17:41 11/20/18 06:48 11/20/18 08:30 Exam: GENERAL: No acute distress. alert and appropriate. LUNGS: Clear to auscultation bilaterally with decreased breath sounds HEART: regular rate and rhythm ABDOMEN: Soft, +BS, non-distended, mild LLQ tender EXTREMITIES: no edema NEUROLOGIC: Motor 5/5 BLE with normal sensation. Assessment/Plan: 1. Parkinson's Disease: Continue Sinemet 2. Bipolar Disease: [place]/Lamictal 3. Nausea: Chronic problem, likely from hypercalcemia due to lithium 4. Urinary Tract Infection/Urine retention: Cipro d/c'd and started Keflex 500 mg Q8h, day 6/7. 5. COPD: Spiriva/Dulera. Oxygen prn. Saline ns prn congestion. 6. DVT Prophylaxis: Heparin 7. Anxiety: Scheduled Klonopin 8. Advance Directives: Full code. is surrogate decision maker 9. Constipation: Back on daily miralax. Dulcolax suppository prn. MOM prn. Had BM x 2 today 10. Intermittent headaches: allow ibuprofen prn. 11/20/18 18:44
[2018-11-20] MEDS: Mirtazapine TAB* 15 MG PO SCH (21:36)
[2018-11-20] MEDS: Tamsulosin CAP* 0.4 MG PO SCH (21:37)
[2018-11-20] MEDS: Senna TAB 8.6 mg* TAB PO SCH (21:41)
[2018-11-21] MEDS: Cephalexin CAP* 500 MG PO SCH ×3 (03:12→17:49)
[2018-11-21] MEDS: Heparin VIAL(*) 5000 UNITS/ML VIAL (FIVE THOUSAND) SUBCUT SCH ×3 (06:35→21:34)
[2018-11-21] MEDS: Ondansetron ODT TAB* 4 MG PO PRN ×3 (08:03→21:39)
[2018-11-21] MEDS: Carbidopa/Levodop 25/100 MG TAB(*) PO SCH ×3 (08:43→17:47)
[2018-11-21] MEDS: clonazePAM TAB(*) 0.5 MG PO SCH ×3 (08:44→17:49)
[2018-11-21] MEDS: Aspirin EC TAB* 81 MG TAB.EC PO SCH (10:01)
[2018-11-21] MEDS: lamoTRIgine TAB(*) 100 MG PO SCH ×2 (10:02→21:00)
[2018-11-21] MEDS: Lithium Carbonate TAB* 300 MG PO SCH ×2 (10:04→21:00)
[2018-11-21] MEDS: Polyethylene Glycol 3350* 17 GM PACKET PO SCH (10:08)
[2018-11-21] MEDS: Tiotropium CAP.INH* CAP.INH/18 MCG (USE ORDER SET !) INH SCH (11:09)
[2018-11-21] MEDS: Mometasone/Formoter 200/5 MDI INH SCH ×2 (11:11→21:53)
[2018-11-21] MEDS: Propranolol TAB* 10 MG PO SCH ×2 (11:29→11:50)
[2018-11-21] MEDS: Sertraline* 100 MG TAB PO SCH (11:29)
[2018-11-21] MEDS: Pantoprazole TAB * 40 MG TAB PO SCH (11:49)
[2018-11-21] MEDS: Cyanocobalamin TAB* 500 MCG PO SCH ×2 (11:49→21:32)
[2018-11-21] MEDS: Docusate CAP* 100 MG PO SCH ×2 (11:49→21:32)
[2018-11-21] MEDS: ELLURA PO SCH (12:06)
[2018-11-21] MEDS: PROBIOTIC PO SCH (12:06)
[2018-11-21] MEDS: Ibuprofen TAB* 400 MG PO PRN (17:00)
[2018-11-21] MEDS: D5NS 0.9% 1000 ML BAG* 1,000 ML IV SCH (17:07)
--- NOTE | 2018-11-21 17:47 | PN ---
Progress Note - Progress Note Date of Service: 11/21/18 Note: GI Follow up Patient seen and examined. Son at bedside. No significant bm in about 12 days per patient. Did have smaller one this am. No pain. Appetite down. No black or blood in stool VS: 107/72, P-66, R- 18, T 98.1, 94% RA Gen: alert, nad, chronically ill appearing Heent: at/nc, perrla, eomi, no jvp CVS: RRR s1s2 Resp: diminished at base Abd: soft, nt, nd, bs hypoactive Ext: no c/c/e Rectal: empty vault. Lab Hgb 12.1, Ca 12.5, TSH 0.94 A/P 73 year old female with Parkinson's, nausea, constipation and poor appetite 1.) Constipation: may be related to Parkinsons and also hypercalcemia. Workup per primary team. Will check KUB to eval stool burden. Consider 2-4L golyely depending on results. Will likely need aggressive regimen. Sx seemed to appear when Parkinsons decompensated. Colonoscopy in 2016 with 2 small polyps (SSA, TA ) and diverticulosis. Suspect repeat would be low yield. 2.) Nausea/Poor appetite: EGD remarkable in 2016, suspect repeat would be low yield and poor endoscopy candidate from risk point of view. Consider Gastric emptying study but would see how nausea is after constipation is aggressively treated. 3.) Parkinsons: Per primary team. Abner Hollybrandon MONROY 11/21/18 [id number]
--- NOTE | 2018-11-21 19:34 | PN ---
Progress Note Date of Service: 11/21/18 Note: MERVIN MCRAE was visited. Therapy notes read and reviewed. She has not eaten or drank much today. I asked GI for a follow up. They suggested abd x-ray and possible Go Lyt[place]. Have also asked Dr. Abbott to see. Have restarted IV fluids. I reviewed her consultation with Dr. Mark from August of this year. He thought Sensipar might be useful if she was symptomatic. Will check labs in am. Current Medications: Active Medications Generic Name Dose Route Start Last Admin Trade Name Freq PRN Reason Stop Dose Admin Acetaminophen 650 mg 10/31/18 11:30 11/13/18 14:24 Tylenol Tab* PO 650 mg Q6H PRN Administration FEVER/PAIN Aspirin 81 mg 11/01/18 09:00 11/21/18 10:01 Aspirin Ec Tab* PO 81 mg DAILY EDVIN Administration Bisacodyl 10 mg 11/12/18 16:17 11/15/18 21:19 Dulcolax Supp* [place] 10 mg DAILY PRN Administration CONSTIPATION Carbidopa/Levodopa 3 tab 11/05/18 13:00 11/21/18 17:47 Sinemet 25/100 Tab(*) PO 3 tab 0730,1300,1730 EDVIN Administration Cephalexin HCl 500 mg 11/14/18 18:00 11/21/18 17:49 Keflex Cap* PO 500 mg Q8H EDVIN Administration Clonazepam 0.5 mg 11/04/18 07:30 11/21/18 17:49 Klonopin Tab(*) PO 0.5 mg 0730,1300,1730 EDVIN Administration Clonazepam 0.5 mg 11/03/18 21:52 11/19/18 23:36 Klonopin Tab(*) PO 0.5 mg Q24H PRN Administration ANXIETY Cyanocobalamin 500 mcg 10/31/18 21:00 11/21/18 11:49 Vitamin B12 Tab* PO Not Given BID EDVIN Docusate Sodium 100 mg 10/31/18 21:00 11/21/18 11:49 Colace Cap* PO Not Given BID EDVIN Heparin Sodium (Porcine) 5,000 units 10/31/18 14:00 11/21/18 14:29 Heparin Vial(*) SUBCUT 5,000 units Q8HR EDVIN Administration Dextrose/Sodium Chloride 1,000 mls @ 75 mls/hr 11/21/18 17:00 11/21/18 17:07 D5ns 0.9% 1000 Ml Bag* IV 11/23/18 06:19 75 mls/hr PER RATE EDVIN Administration Ibuprofen 400 mg 11/09/18 09:51 11/21/18 17:00 Motrin Tab* PO 400 mg Q6H PRN Administration HEADACHE Lamotrigine 100 mg 10/31/18 21:00 11/21/18 10:02 Lamictal Tab(*) PO 100 mg BID EDVIN Administration [place] Carbonate 300 mg 10/31/18 21:00 11/21/18 10:04 [place] Carbonate Tab* PO 300 mg BID EDVIN Administration Magnesium Hydroxide 30 ml 11/12/18 16:18 11/15/18 07:41 Milk Of Magnesia Liq* PO 30 ml Q6H PRN Administration CONSTIPATION Mirtazapine 15 mg 11/03/18 21:00 11/20/18 21:36 Remeron Tab* PO 15 mg BEDTIME EDVIN Administration Mometasone Furoate/Formoterol Fumar 2 puff 10/31/18 21:00 11/21/18 11:11 Dulera 200/5 Mdi* INH 2 puff BID EDVIN Administration Pto: ([place] 1 Cap) 1 cap 11/04/18 12:00 11/21/18 12:06 PO Not Given 1200 EDVIN Pto: (Probiotic 10 1 cap 11/04/18 12:00 11/21/18 12:06 Cap) PO Not Given 1200 EDVIN Ondansetron HCl 4 mg 11/01/18 09:00 11/21/18 13:41 Zofran Odt Tab* PO 4 mg Q4H PRN Administration NAUSEA Pantoprazole Sodium 40 mg 11/01/18 09:00 11/21/18 11:49 Protonix Tab* PO Not Given DAILY EDVIN Polyethylene Glycol/Electrolytes 17 gm 11/14/18 09:00 11/21/18 10:08 Miralax* PO 17 gm DAILY EDVIN Administration Propranolol HCl 10 mg 11/01/18 09:00 11/21/18 11:50 Inderal Tab* PO Not Given DAILY EDVIN Senna 2 tab 11/03/18 21:00 11/20/18 21:41 Senokot Tab* PO Not Given BEDTIME EDVIN Sertraline HCl 150 mg 11/01/18 09:00 11/21/18 11:29 Zoloft* PO 150 mg DAILY EDVIN Administration Sodium Biphosphate/Sodium Phosphate 1 bottle 11/20/18 16:13 Fleet Enema* [place] DAILY PRN CONSTIPATION Sodium Chloride 1 spray 11/09/18 09:51 11/11/18 18:14 Sodium Chloride 0.65% Nasal [place]* BOTH NARES 1 spray Q4H PRN Administration CONGESTION Tamsulosin HCl 0.4 mg 10/31/18 21:00 11/20/18 21:37 Flomax Cap* PO 0.4 mg BEDTIME EDVIN Administration Tiotropium [place] 1 cap 11/01/18 09:00 11/21/18 11:09 Spiriva Cap.Inh* INH 1 cap DAILY EDVIN Administration Vital Signs: Vital Signs Temp Pulse Resp BP Pulse Ox 98.1 F 66 16 107/72 94 11/21/18 17:03 11/21/18 17:03 11/21/18 17:49 11/21/18 17:03 11/21/18 17:03 Exam: GENERAL: No acute distress. alert and appropriate. LUNGS: Clear to auscultation bilaterally with decreased breath sounds HEART: regular rate and rhythm ABDOMEN: Soft, +BS, non-distended, EXTREMITIES: no edema NEUROLOGIC: Motor 5/5 BLE with normal sensation. Assessment/Plan: 1. Parkinson's Disease: Continue Sinemet 2. Bipolar Disease: [place]/Lamictal 3. Nausea: Chronic problem, likely from hypercalcemia due to lithium 4. Urinary Tract Infection/Urine retention: Keflex 500 mg Q8h, day 7/7. 5. COPD: Spiriva/Dulera. Oxygen prn. Saline ns prn congestion. 6. DVT Prophylaxis: Heparin 7. Anxiety: Scheduled Klonopin 8. Advance Directives: Full code. is surrogate decision maker 9. Constipation: Back on daily miralax. Dulcolax suppository prn. MOM prn. Had BM x 2 yesterday 10. Intermittent headaches: allow ibuprofen prn. 11/21/18 19:35
[2018-11-21] MEDS: Tamsulosin CAP* 0.4 MG PO SCH (21:02)
[2018-11-21] MEDS: Mirtazapine TAB* 15 MG PO SCH (21:02)
[2018-11-21] MEDS: Senna TAB 8.6 mg* TAB PO SCH (21:32)
[2018-11-22] MEDS: Cephalexin CAP* 500 MG PO SCH ×3 (01:33→18:39)
[2018-11-22] MEDS: Heparin VIAL(*) 5000 UNITS/ML VIAL (FIVE THOUSAND) SUBCUT SCH ×3 (05:38→22:32)
[2018-11-22] MEDS: D5NS 0.9% 1000 ML BAG* 1,000 ML IV SCH (06:49)
[2018-11-22 06:51] LABS: ABS Eosinophils 0.6 10^3/ul (0-0.6); ABS Lymphocytes 1.4 10^3/ul (1.0-4.8); ABS Monocytes 0.5 10^3/ul (0-0.8); ABS Neutrophils 4.3 10^3/ul (1.5-7.7); Eosinophil % 8.4 %; Hematocrit 32 % (35-47); Hemoglobin 11.1 g/dL (12.0-16.0); Lymphocyte % 20.3 %; Mean Corpuscular HGB Conc 35 g/dL (31-36); Mean Corpuscular Hemoglobin 32 pg (27-31); Mean Corpuscular Volume 93 fL (80-97); Mean Platelet Volume 10.5 fL (7.4-10.4); Platelet Count 187 10^3/uL (150-450); Red Blood Count 3.46 10^6 /uL (3.70-4.87); Red Cell Distribution Width 14 % (10-15); White Blood Count 6.8 10^3/uL (3.5-10.8)
[2018-11-22 07:22] LABS: ALT < 3 U/L (7-52); AST 5 U/L (13-39); Albumin 3.6 g/dL (3.2-5.2); Albumin/Globulin Ratio 1.8 (1-3); Alkaline Phosphatase 92 U/L (34-104); Anion Gap 4 mmol/L (2-11); BUN/Creatinine Ratio 10.6 (8-20); Blood Urea Nitrogen 13 mg/dL (6-24); CO2 Carbon Dioxide 26 mmol/L (22-32); Calcium 12.3 mg/dL (8.6-10.3); Chloride 105 mmol/L (101-111); EGFR African American 52.1 (>60); Glucose 113 mg/dL (70-100); Potassium 3.5 mmol/L (3.5-5.0); Sodium 135 mmol/L (135-145); Total Protein 5.6 g/dL (6.4-8.9)
[2018-11-22] MEDS: Ondansetron ODT TAB* 4 MG PO PRN ×3 (08:02→16:22)
[2018-11-22] MEDS: clonazePAM TAB(*) 0.5 MG PO SCH ×3 (08:02→17:48)
[2018-11-22] MEDS: Carbidopa/Levodop 25/100 MG TAB(*) PO SCH ×4 (08:02→18:36)
[2018-11-22] MEDS: Mometasone/Formoter 200/5 MDI INH SCH ×2 (08:09→22:31)
[2018-11-22] MEDS: Tiotropium CAP.INH* CAP.INH/18 MCG (USE ORDER SET !) INH SCH (08:12)
[2018-11-22] MEDS ORDERED: PEG 3000 GI LAVAGE* 1 GALLON PO ONE (08:59)
[2018-11-22] MEDS: lamoTRIgine TAB(*) 100 MG PO SCH ×2 (09:51→19:57)
[2018-11-22] MEDS: Cyanocobalamin TAB* 500 MCG PO SCH ×2 (09:51→19:57)
[2018-11-22] MEDS: Aspirin EC TAB* 81 MG TAB.EC PO SCH (09:51)
[2018-11-22] MEDS: Pantoprazole TAB * 40 MG TAB PO SCH (09:52)
[2018-11-22] MEDS: Ibuprofen TAB* 400 MG PO PRN ×2 (09:52→19:57)
[2018-11-22] MEDS: Docusate CAP* 100 MG PO SCH ×2 (09:52→19:57)
[2018-11-22] MEDS: Lithium Carbonate TAB* 300 MG PO SCH ×2 (09:53→19:57)
[2018-11-22] MEDS: Polyethylene Glycol 3350* 17 GM PACKET PO SCH (09:53)
[2018-11-22] MEDS: Sertraline* 100 MG TAB PO SCH (09:54)
[2018-11-22] MEDS: Propranolol TAB* 10 MG PO SCH (09:56)
[2018-11-22] MEDS: ELLURA PO SCH (12:02)
[2018-11-22] MEDS: PROBIOTIC PO SCH (12:02)
[2018-11-22] MEDS ORDERED: Bisacodyl SUPP* 10 MG SUPP PR ONE (14:45)
[2018-11-22] MEDS ORDERED: Iodixanol* (CONTRAST) 320 MG/ML 100 ML SDV IV ONE (15:37)
--- NOTE | 2018-11-22 17:59 | PN ---
Progress Note Date of Service: 11/22/18 Note: MERVIN MCRAE was visited. Therapy notes read and reviewed. Still quite nauseated but IV fluids have helped her get up and walk. Appreciate GI help-she has not been able to drink Go [place]. D/W [facility]. They will discuss with Dr. Mark whether Sensipar has a role here. They also ordered CT of abd/ pelvis, but she was not able to drink oral contrast. Meanwhile will resume daily enemas. Ca++=12.3 Current Medications: Active Medications Generic Name Dose Route Start Last Admin Trade Name Freq PRN Reason Stop Dose Admin Acetaminophen 650 mg 10/31/18 11:30 11/13/18 14:24 Tylenol Tab* PO 650 mg Q6H PRN Administration FEVER/PAIN Aspirin 81 mg 11/01/18 09:00 11/22/18 09:51 Aspirin Ec Tab* PO 81 mg DAILY EDVIN Administration Bisacodyl 10 mg 11/12/18 16:17 11/15/18 21:19 Dulcolax Supp* [place] 10 mg DAILY PRN Administration CONSTIPATION Carbidopa/Levodopa 3 tab 11/05/18 13:00 11/22/18 17:48 Sinemet 25/100 Tab(*) PO 3 tab 0730,1300,1730 EDVIN Administration Cephalexin HCl 500 mg 11/14/18 18:00 11/22/18 09:56 Keflex Cap* PO 500 mg Q8H EDVIN Administration Clonazepam 0.5 mg 11/04/18 07:30 11/22/18 17:48 Klonopin Tab(*) PO 0.5 mg 0730,1300,1730 EDVIN Administration Clonazepam 0.5 mg 11/03/18 21:52 11/19/18 23:36 Klonopin Tab(*) PO 0.5 mg Q24H PRN Administration ANXIETY Cyanocobalamin 500 mcg 10/31/18 21:00 11/22/18 09:51 Vitamin B12 Tab* PO 500 mcg BID EDVIN Administration Docusate Sodium 100 mg 10/31/18 21:00 11/22/18 09:52 Colace Cap* PO 100 mg BID EDVIN Administration Heparin Sodium (Porcine) 5,000 units 10/31/18 14:00 11/22/18 16:16 Heparin Vial(*) SUBCUT 5,000 units Q8HR EDVIN Administration Dextrose/Sodium Chloride 1,000 mls @ 75 mls/hr 11/21/18 17:00 11/22/18 06:49 D5ns 0.9% 1000 Ml Bag* IV 11/23/18 06:19 75 mls/hr PER RATE EDVIN Administration Ibuprofen 400 mg 11/09/18 09:51 11/22/18 09:52 Motrin Tab* PO 400 mg Q6H PRN Administration HEADACHE Lamotrigine 100 mg 10/31/18 21:00 11/22/18 09:51 Lamictal Tab(*) PO 100 mg BID EDVIN Administration [place] Carbonate 300 mg 10/31/18 21:00 11/22/18 09:53 [place] Carbonate Tab* PO 300 mg BID EDVIN Administration Magnesium Hydroxide 30 ml 11/12/18 16:18 11/15/18 07:41 Milk Of Magnesia Liq* PO 30 ml Q6H PRN Administration CONSTIPATION Mirtazapine 15 mg 11/03/18 21:00 11/21/18 21:02 Remeron Tab* PO 15 mg BEDTIME EDVIN Administration Mometasone Furoate/Formoterol Fumar 2 puff 10/31/18 21:00 11/22/18 08:09 Dulera 200/5 Mdi* INH Not Given BID EDVIN Pto: ([place] 1 Cap) 1 cap 11/04/18 12:00 11/22/18 12:02 PO Not Given 1200 EDVIN Pto: (Probiotic 10 1 cap 11/04/18 12:00 11/22/18 12:02 Cap) PO Not Given 1200 EDVIN Ondansetron HCl 4 mg 11/01/18 09:00 11/22/18 16:22 Zofran Odt Tab* PO 4 mg Q4H PRN Administration NAUSEA Pantoprazole Sodium 40 mg 11/01/18 09:00 11/22/18 09:52 Protonix Tab* PO 40 mg DAILY EDVIN Administration Polyethylene Glycol/Electrolytes 17 gm 11/14/18 09:00 11/22/18 09:53 Miralax* PO Not Given DAILY EDVIN Propranolol HCl 10 mg 11/01/18 09:00 11/22/18 09:56 Inderal Tab* PO 10 mg DAILY EDVIN Administration Senna 2 tab 11/03/18 21:00 11/21/18 21:32 Senokot Tab* PO 2 tab BEDTIME EDVIN Administration Sertraline HCl 150 mg 11/01/18 09:00 11/22/18 09:54 Zoloft* PO 150 mg DAILY EDVIN Administration Sodium Biphosphate/Sodium Phosphate 1 bottle 11/20/18 16:13 Fleet Enema* [place] DAILY PRN CONSTIPATION Sodium Chloride 1 spray 11/09/18 09:51 11/11/18 18:14 Sodium Chloride 0.65% Nasal [place]* BOTH NARES 1 spray Q4H PRN Administration CONGESTION Tamsulosin HCl 0.4 mg 10/31/18 21:00 11/21/18 21:02 Flomax Cap* PO 0.4 mg BEDTIME EDVIN Administration Tiotropium [place] 1 cap 11/01/18 09:00 11/22/18 08:12 Spiriva Cap.Inh* INH 1 cap DAILY EDVIN Administration Vital Signs: Vital Signs Temp Pulse Resp BP Pulse Ox 97.3 F 64 20 147/84 97 11/22/18 17:32 11/22/18 17:32 11/22/18 17:48 11/22/18 17:32 11/22/18 17:32 Lab Results: Laboratory Results - last 24 hr 11/22/18 11/22/18 11/22/18 06:34 06:34 06:34 WBC 6.8 RBC 3.46 L Hgb 11.1 L Hct 32 L MCV 93 MCH 32 H MCHC 35 RDW 14 Plt Count 187 MPV 10.5 H Neut % (Auto) 63.4 Lymph % (Auto) 20.3 [place] % (Auto) 7.5 Eos % (Auto) 8.4 Baso % (Auto) 0.4 Absolute Neuts (auto) 4.3 Absolute Lymphs (auto) 1.4 Absolute Monos (auto) 0.5 Absolute Eos (auto) 0.6 Absolute Basos (auto) 0.0 Absolute Nucleated RBC 0.0 Nucleated RBC % 0.0 Sodium 135 Potassium 3.5 Chloride 105 Carbon Dioxide 26 Anion Gap 4 BUN 13 Creatinine 1.23 H Est GFR ( Amer) 52.1 Est GFR (Non-Af Amer) 43.0 BUN/Creatinine Ratio 10.6 Glucose 113 H POC Glucose (mg/dL) Calcium 12.3 H Total Bilirubin 0.50 AST 5 L ALT < 3 L Alkaline Phosphatase 92 Total Protein 5.6 L Albumin 3.6 Globulin 2.0 Albumin/Globulin Ratio 1.8 [place] 1.18 11/22/18 08:06 WBC RBC Hgb Hct MCV MCH MCHC RDW Plt Count MPV Neut % (Auto) Lymph % (Auto) [place] % (Auto) Eos % (Auto) Baso % (Auto) Absolute Neuts (auto) Absolute Lymphs (auto) Absolute Monos (auto) Absolute Eos (auto) Absolute Basos (auto) Absolute Nucleated RBC Nucleated RBC % Sodium Potassium Chloride Carbon Dioxide Anion Gap BUN Creatinine Est GFR ( Amer) Est GFR (Non-Af Amer) BUN/Creatinine Ratio Glucose POC Glucose (mg/dL) 120 H Calcium Total Bilirubin AST ALT Alkaline Phosphatase Total Protein Albumin Globulin Albumin/Globulin Ratio [place] Exam: GENERAL: No acute distress. alert and appropriate. LUNGS: Clear to auscultation bilaterally with decreased breath sounds HEART: regular rate and rhythm ABDOMEN: Soft, +BS, non-distended, EXTREMITIES: no edema NEUROLOGIC: Motor 5/5 BLE with normal sensation. Assessment/Plan: 1. Parkinson's Disease: Continue Sinemet 2. Bipolar Disease: [place]/Lamictal 3. Nausea: Chronic problem, likely from hypercalcemia due to lithium 4. Urinary Tract Infection/Urine retention: Keflex 500 mg Q8h, day 7/7. Will recheck U/A 5. COPD: Spiriva/Dulera. Oxygen prn. Saline ns prn congestion. 6. DVT Prophylaxis: Heparin 7. Anxiety: Scheduled Klonopin 8. Advance Directives: Full code. is surrogate decision maker 9. Constipation: Back on daily miralax. Will resume daily enemasDulcolax suppository prn. MOM prn. 10. Intermittent headaches: allow ibuprofen prn. 11/22/18 18:37
[2018-11-22] MEDS: Bisacodyl SUPP* 10 MG SUPP PR PRN (18:00)
--- NOTE | 2018-11-22 19:24 | CONS ---
CONSULTATION REPORT: DATE OF ADMISSION: 10/31/18 to [facility]. DATE OF CONSULT: 11/22/18 ATTENDING PHYSICIAN: Dr. Morataya. CONSULTING PHYSICIAN: Dr. Marielena Betancourt (dictated by Char Mclaughlin NP). REASON FOR CONSULT: Nausea, vomiting, hypercalcemia. HISTORY OF PRESENT ILLNESS: Ms. Nelson is a 73-year-old female with a past medical history significant for Parkinson disease, bipolar, history of COPD, with frequent urinary tract infections, right total knee replacement, and lithium- induced hyperparathyroidism with hypercalcemia who is currently residing in [facility]. The patient was initially admitted to the hospital on with recurrent urinary tract infection and progressive weakness and inability to take her Sinemet at home, for which she developed weakness and stiffness, which exacerbated her underlying Parkinson disease. Due to her decreased function ability and mobility, she was admitted to [facility] for inpatient rehab with the hope to return to independent living. While on [facility], the patient has been complaining of nausea and vomiting for the past several days. She reports she has had no BM in 3 days. Prior to that, she had had no BM in 10 days. The patient was seen in consultation by gastroenterology, who recommended GoLYTELY. The patient has been unable to tolerate the GoLYTELY and has been vomiting with the GoLYTELY. Due to the consistent vomiting and hypercalcemia, we were asked to see the patient in consultation. PAST MEDICAL HISTORY: Significant for: 1. Parkinson disease. 2. Bipolar. 3. Urethral stricture, on Flomax. 4. COPD. 5. Frequent urinary tract infections. 6. Total knee replacement. 7. [place]-induced hyperparathyroidism with associated hypercalcemia. 8. Mild dementia. 9. Neurogenic bladder. 10. Depression. PAST SURGICAL HISTORY: 1. Right total knee replacement. 2. Status post oophorectomy. 3. Status post right hand open reduction and internal fixation. CURRENT MEDICATIONS: 1. Acetaminophen 650 mg p.o. q.6 hours. 2. Aspirin 81 mg p.o. daily. 3. Bisacodyl 10 mg [place] daily p.r.n. for constipation. 4. Sinemet 3 tabs t.i.d. 5. Keflex 500 mg p.o. q.8 hours. 6. Klonopin 0.5 mg p.o. 3 times daily. 7. Vitamin B12 at 500 mcg p.o. b.i.d. 8. D5 normal saline at 75 cc per hour. 9. Colace 100 mg p.o. b.i.d. 10. Heparin 5000 units subcu q.8 hours. 11. Ibuprofen 400 mg p.o. q.6 hours p.r.n. 12. Lamictal 100 mg p.o. b.i.d. 13. [place] 300 mg p.o. b.i.d. 14. Milk of Magnesia 30 mL p.o. q.6 hours p.r.n. for constipation. 15. Remeron 15 mg p.o. at bedtime. 16. Dulera 200/5 two puffs b.i.d. 17. Zofran p.o. q.4 hours p.r.n. 18. Protonix 40 mg p.o. daily. 19. MiraLAX 17 g p.o. daily. 20. Propranolol 10 mg p.o. daily. 21. Ellura 1 cap at noon. 22. Probiotic 1 cap at noon. 23. Senna 2 tabs p.o. at bedtime. 24. Sertraline 150 mg p.o. daily. 25. Fleet Enema 1 bottle [place] daily p.r.n. 26. Sodium chloride nasal spray q.4 hours p.r.n. 27. Tamsulosin 0.4 mg p.o. at bedtime. 28. Spiriva 1 cap inhaled daily. ALLERGIES: Allergy to AMOXICILLIN, CLARITHROMYCIN, AUGMENTIN, MOXIFLOXACIN, and SULFA. FAMILY HISTORY: Mother with Parkinson disease. Sister with MS. Father with a history of asthma. There is also family history of heart disease. SOCIAL HISTORY: The patient denies any alcohol or illicit drug use. She was a smoker for 45 years of half a pack a day; she quit in 2012. Surrogate decision maker in the event she is unable to make her own decisions is her , Matthew. She is a full code. REVIEW OF SYSTEMS: She denies any fever. She does report decreased appetite. Denies any chest pain or edema. Denies any cough, hemoptysis, or shortness of breath. She does report nausea and vomiting. She denies any diarrhea. She does report left lower abdominal pain, mild suprapubic tenderness. Denies any gross hematuria or dysuria. Denies any focal weakness or sensory loss. Denies any visual complaints, dysphagia, arthralgias, myalgias, rashes, lesions, or opens sores. Denies any psychosis or anxiety. She does report no BM in 3 days. PHYSICAL EXAM: General: At this time, Ms. Nelson is alert and oriented, sitting in her chair. She is in no acute distress. Vital Signs: Blood pressure 147/84, heart rate 64, respirations 16, O2 saturation 97%, temperature was 97.3. HEENT: Head is atraumatic, normocephalic. Eyes: EOMs are intact. Sclerae anicteric and not pale. Oral mucosa appeared to be dry. Neck is supple. Lungs are clear to auscultation bilaterally. No wheezes, rales, or rhonchi. Cardiac: S1, S2. Regular rate and rhythm. No murmurs, rubs, or gallops. Abdomen is soft. Bowel sounds are present x4. She does have mild tenderness noted to the suprapubic and left lower quadrant. Skin is intact. Neurologic: She is awake, alert, oriented x3. Speech is clear. Thought process is intact. There are no gross focal deficits. DIAGNOSTIC STUDIES/LAB DATA: WBCs are 6.8, RBCs 3.46, hemoglobin 11.1, hematocrit was 32, platelet count was 187. Sodium 135, potassium 3.5, chloride 105, carbon dioxide was 26, anion gap was 4, BUN was 13, creatinine was 1.23 which was trending upward from baseline, glucose was 113, calcium 12.3. Bilirubin 0.50, ASTs were 5, ALTs were less than 3, alkaline phosphatase was 92. Urine is currently pending. Repeat lithium level on 11/22/18 was 1.18. She had a CT of the abdomen and pelvis, radiologist's impression: No CT pathology visualized in the abdomen or pelvis. The colon was normal in contour , course, and caliber. There were no pericolonic inflammatory changes. There was a large amount of stool throughout the colon. IMPRESSION AND PLAN: Ms. Nelson is a 73-year-old female with a past medical history significant for Parkinson's, lithium-induced hyperparathyroidism with hypercalcemia, neurogenic bladder, depression, mild dementia, and chronic obstructive pulmonary disease who has a recent complaint of constipation and nausea and vomiting and hypercalcemia. Due to these findings, Hospital Medicine was asked to consult. Our recommendations are as follows: 1. Deconditioning. I would continue to recommend PT and OT services in PMRU and management of that per PMRU. 2. Abdominal pain, nausea, vomiting, and constipation. The patient did have CT of the abdomen and pelvis that did show a large amount of stool in the colon. I would recommend aggressive bowel management with enemas and consider soapsuds enema, Dulcolax, and continue with p.o. Colace and milk of magnesia to assist with bowel movements as the patient is unable to tolerate GoLYTELY. As for the nausea, I would continue with Zofran as I am unable to recommend Reglan as it does interact with her Zoloft and can cause nausea and vomiting, and possibility of serotonin syndrome. I would also recommend reconsultation to GI for further recommendations if unsuccessful with enemas. 3. Hypercalcemia. I would recommend consultation to Dr. Mark as the patient has been seen and evaluated by Dr. Mark in the past for further management of her hypercalcemia. 4. Parkinson's. I would recommend that the patient continue on her Parkinson medications. 5. Urinary tract infection. The patient is going to complete a full course of cephalexin 500 mg q.8 hours. I would recommend the patient have a repeat UA and urine culture to evaluate the resolution of her urinary tract infection. 6. FEN: The patient can have a regular diet. 7. Code status: She is a full code. 8. DVT prophylaxis: As per PMRU. TIME SPENT: Time spent on this consultation was approximately 45 minutes, greater than half that time was spent at the bedside reviewing events leading thus far to her hospitalization, performing physical exam, and reviewing my plan of care. I have discussed this with my attending, Dr. Marielena Betancourt; she is in agreement with my plan. CHAR MCLAUGHLIN, HEAD START DIRECTOR [id number]/[facility] #: [id number] NEMO
[2018-11-22 19:51] LABS: Urine Appearance Cloudy; Urine Bacteria Absent (Absent); Urine Bilirubin Negative (Negative); Urine Blood 1+ (Negative); Urine Color Yellow; Urine Glucose Negative (Negative); Urine Ketones Negative (Negative); Urine Nitrite Negative (Negative); Urine Protein Negative (Negative); Urine Red Blood Cell Trace(0-2/hpf) (Absent); Urine Specific Gravity 1.031 (1.010-1.030); Urine Urobilinogen Negative (Negative); Urine White Blood Cell Trace(0-5/hpf) (Absent)
[2018-11-22] MEDS: Mirtazapine TAB* 15 MG PO SCH (19:57)
[2018-11-22] MEDS: Tamsulosin CAP* 0.4 MG PO SCH (19:57)
[2018-11-22] MEDS: Senna TAB 8.6 mg* TAB PO SCH (20:06)
--- NOTE | 2018-11-22 22:28 | CONSULT ---
Consult Consult: [facility] Brief Note Date of Consult: 11/22/18 Reason for Consult: hypercalcemia Reason for Admission: UTI (10/29/18), now PMRU ASSESSMENT: 73 yo F with lithium-induced hyperparathyroidism. Patient not seen or examined, but recent results reviewed. She is experiencing rising calcium levels in setting of subacute medical illness, many of which are aggravating hypercalcemia (dehydration, ARF, immobilization). She is a poor surgical candidate, had no apparent parathyroid adenoma on recent thyroid ultrasound and does not have osteoporosis by DEXA; therefore, I recommend calcium-lowering therapy with Sensipar, rather than surgery or bisphosphonate. PLAN: - start Sensipar 30mg BID - check calcium every 3 days until stable - increase dose to 60mg BID if Ca>11.3 at next check - encourage physical activity, as tolerated - ncourage adequate hydration (6-8 glasses of water per day) - maintain a moderate calcium intake (1000 mg/day) - maintain moderate vitamin D intake (800-1000 units/day) SUBJECTIVE: History of Present Illness: 73 yo F with lithium-induced hyperparathyroidism and mild hypercalcemia, now with rising calcium in setting of deconditioning, immobilization and dehydration. Review of chart shows that patient has had hypercalcemia dating back many years. Peak calcium was in 11.1 with normal albumin. PTH was elevated. Vitamin D normal. Renal function is normal. This patient has been on lithium for many years. Recent 24h urine study showed low-normal calcium, which is typical of lithium-induced PTH-mediated hypercalcemia. Past Medical History: Inpatient Medications: Acetaminophen (Tylenol Tab*) 650 mg PO Q6H PRN PRN Reason: FEVER/PAIN Last Admin: 11/13/18 14:24 Dose: 650 mg Aspirin (Aspirin Ec Tab*) 81 mg PO DAILY [facility] Last Admin: 11/22/18 09:51 Dose: 81 mg Bisacodyl (Dulcolax Supp*) 10 mg HI DAILY PRN PRN Reason: CONSTIPATION Last Admin: 11/15/18 21:19 Dose: 10 mg Carbidopa/Levodopa (Sinemet 25/100 Tab(*)) 3 tab PO 0730,1300,1730 [facility] Last Admin: 11/22/18 18:36 Dose: 3 tab Cephalexin HCl (Keflex Cap*) 500 mg PO Q8H EDVIN Stop: 11/22/18 23:59 Last Admin: 11/22/18 18:39 Dose: 500 mg Clonazepam (Klonopin Tab(*)) 0.5 mg PO 0730,1300,1730 [facility] Last Admin: 11/22/18 17:48 Dose: 0.5 mg Clonazepam (Klonopin Tab(*)) 0.5 mg PO Q24H PRN PRN Reason: ANXIETY Last Admin: 11/19/18 23:36 Dose: 0.5 mg Cyanocobalamin (Vitamin B12 Tab*) 500 mcg PO BID [facility] Last Admin: 11/22/18 19:57 Dose: 500 mcg Docusate Sodium (Colace Cap*) 100 mg PO BID [facility] Last Admin: 11/22/18 19:57 Dose: 100 mg Heparin Sodium (Porcine) (Heparin Vial(*)) 5,000 units SUBCUT Q8HR [facility] Last Admin: 11/22/18 22:32 Dose: 5,000 units Dextrose/Sodium Chloride (D5ns 0.9% 1000 Ml Bag*) 1,000 mls @ 75 mls/hr IV PER RATE [facility] Stop: 11/23/18 06:19 Last Admin: 11/22/18 06:49 Dose: 75 mls/hr Ibuprofen (Motrin Tab*) 400 mg PO Q6H PRN PRN Reason: [place] Last Admin: 11/22/18 19:57 Dose: 400 mg Lamotrigine (Lamictal Tab(*)) 100 mg PO BID [facility] Last Admin: 11/22/18 19:57 Dose: 100 mg [place] Carbonate ([place] Carbonate Tab*) 300 mg PO BID [facility] Last Admin: 11/22/18 19:57 Dose: 300 mg Magnesium Hydroxide (Milk Of Magnesia Liq*) 30 ml PO Q6H PRN PRN Reason: CONSTIPATION Last Admin: 11/15/18 07:41 Dose: 30 ml Metoclopramide HCl (Reglan Tab*) 2.5 mg PO AC [facility] Mirtazapine (Remeron Tab*) 15 mg PO BEDTIME [facility] Last Admin: 11/22/18 19:57 Dose: 15 mg Mometasone Furoate/Formoterol Fumar (Dulera 200/5 Mdi*) 2 puff INH BID [facility] Last Admin: 11/22/18 22:31 Dose: 2 puff Pto: (Ellura 1 Cap) 1 cap PO 1200 [facility] Last Admin: 11/22/18 12:02 Dose: Not Given Pto: (Probiotic 10 (Cap)) 1 cap PO 1200 [facility] Last Admin: 11/22/18 12:02 Dose: Not Given Ondansetron HCl (Zofran Odt Tab*) 4 mg PO Q4H PRN PRN Reason: NAUSEA Last Admin: 11/22/18 16:22 Dose: 4 mg Pantoprazole Sodium (Protonix Tab*) 40 mg PO DAILY [facility] Last Admin: 11/22/18 09:52 Dose: 40 mg Polyethylene Glycol/Electrolytes (Miralax*) 17 gm PO DAILY [facility] Last Admin: 11/22/18 09:53 Dose: Not Given Propranolol HCl (Inderal Tab*) 10 mg PO DAILY [facility] Last Admin: 11/22/18 09:56 Dose: 10 mg Senna (Senokot Tab*) 2 tab PO BEDTIME [facility] Last Admin: 11/22/18 20:06 Dose: Not Given Sertraline HCl (Zoloft*) 150 mg PO DAILY [facility] Last Admin: 11/22/18 09:54 Dose: 150 mg Sodium Biphosphate/Sodium Phosphate (Fleet Enema*) 1 bottle HI DAILY [facility] Sodium Chloride (Sodium Chloride 0.65% Nasal [place]*) 1 spray [place] Q4H PRN PRN Reason: CONGESTION Last Admin: 11/11/18 18:14 Dose: 1 spray Tamsulosin HCl (Flomax Cap*) 0.4 mg PO BEDTIME [facility] Last Admin: 11/22/18 19:57 Dose: 0.4 mg Tiotropium [place] (Spiriva Cap.Inh*) 1 cap INH DAILY [facility] Last Admin: 11/22/18 08:12 Dose: 1 cap Allergies/Intolerances: amoxicillin [From Augmentin] Allergy (Verified 10/21/18 22:05) Rash clarithromycin Allergy (Verified 10/21/18 22:05) Rash clavulanic acid [From Augmentin] Allergy (Verified 10/21/18 22:05) Rash moxifloxacin Allergy (Verified 10/21/18 22:05) Rash Sulfa (Sulfonamide Antibiotics) Allergy (Verified 10/21/18 22:05) Rash Social History: Marital: . Lives with . Disabled. Former smoker - quit 2012, smoked approx 45 yrs, 1/2 ppd. Consumes on average 1 cup of regular coffee per day. Family History: Non-contributory. Review of Systems: Not obtained. OBJECTIVE: Temp Pulse Resp BP Pulse Ox 97.3 F 64 18 147/84 97 11/22/18 17:32 11/22/18 17:32 11/22/18 21:57 11/22/18 17:32 11/22/18 19:24 Labs: WBC 6.8 10^3/uL (3.5-10.8) 11/22/18 06:34 RBC 3.46 10^6 /uL (3.70-4.87) L 11/22/18 06:34 Hgb 11.1 g/dL (12.0-16.0) L 11/22/18 06:34 Hct 32 % (35-47) L 11/22/18 06:34 MCV 93 fL (80-97) 11/22/18 06:34 MCH 32 pg (27-31) H 11/22/18 06:34 MCHC 35 g/dL (31-36) 11/22/18 06:34 RDW 14 % (10-15) 11/22/18 06:34 Plt Count 187 10^3/uL (150-450) 11/22/18 06:34 MPV 10.5 fL (7.4-10.4) H 11/22/18 06:34 Neut % (Auto) 63.4 % 11/22/18 06:34 Lymph % (Auto) 20.3 % 11/22/18 06:34 [place] % (Auto) 7.5 % 11/22/18 06:34 Eos % (Auto) 8.4 % 11/22/18 06:34 Baso % (Auto) 0.4 % 11/22/18 06:34 Absolute Neuts (auto) 4.3 10^3/ul (1.5-7.7) 11/22/18 06:34 Absolute Lymphs (auto) 1.4 10^3/ul (1.0-4.8) 11/22/18 06:34 Absolute Monos (auto) 0.5 10^3/ul (0-0.8) 11/22/18 06:34 Absolute Eos (auto) 0.6 10^3/ul (0-0.6) 11/22/18 06:34 Absolute Basos (auto) 0.0 10^3/ul (0-0.2) 11/22/18 06:34 Absolute Nucleated RBC 0.0 10^3/ul 11/22/18 06:34 Nucleated RBC % 0.0 11/22/18 06:34 Sodium 135 mmol/L (135-145) 11/22/18 06:34 Potassium 3.5 mmol/L (3.5-5.0) 11/22/18 06:34 Chloride 105 mmol/L (101-111) 11/22/18 06:34 Carbon Dioxide 26 mmol/L (22-32) 11/22/18 06:34 Anion Gap 4 mmol/L (2-11) 11/22/18 06:34 BUN 13 mg/dL (6-24) 11/22/18 06:34 Creatinine 1.23 mg/dL (0.51-0.95) H 11/22/18 06:34 Est GFR ( Amer) 52.1 (>60) 11/22/18 06:34 Est GFR (Non-Af Amer) 43.0 (>60) 11/22/18 06:34 BUN/Creatinine Ratio 10.6 (8-20) 11/22/18 06:34 Glucose 113 mg/dL (70-100) H 11/22/18 06:34 POC Glucose (mg/dL) 120 mg/dL (70-100) H 11/22/18 08:06 Calcium 12.3 mg/dL (8.6-10.3) H 11/22/18 06:34 Total Bilirubin 0.50 mg/dL (0.2-1.0) 11/22/18 06:34 AST 5 U/L (13-39) L 11/22/18 06:34 ALT < 3 U/L (7-52) L 11/22/18 06:34 Alkaline Phosphatase 92 U/L (34-104) 11/22/18 06:34 Total Protein 5.6 g/dL (6.4-8.9) L 11/22/18 06:34 Albumin 3.6 g/dL (3.2-5.2) 11/22/18 06:34 Globulin 2.0 g/dL (2-4) 11/22/18 06:34 Albumin/Globulin Ratio 1.8 (1-3) 11/22/18 06:34 Urine Color Yellow 08/02/19 19:30 Urine Appearance Cloudy 11/22/18 19:30 Urine pH 8.0 (5-9) 11/22/18 19:30 Ur Specific [place] 1.031 (1.010-1.030) H 11/22/18 19:30 Urine Protein Negative (Negative) 11/22/18 19:30 Urine Ketones Negative (Negative) 11/22/18 19:30 Urine Blood 1+ (Negative) A 11/22/18 19: Urine Nitrate Negative (Negative) 11/22/18 19:30 Urine Bilirubin Negative (Negative) 11/22/18 19:30 Urine Urobilinogen Negative (Negative) 11/22/18 19:30 Ur Leukocyte Esterase 1+ (Negative) A 11/22/18 19:30 Urine WBC (Auto) Trace(0-5/hpf) (Absent) 11/22/18 19:30 Urine RBC (Auto) Trace(0-2/hpf) (Absent) 11/22/18 19:30 Ur Squamous Epith Cells Present (Absent) A 11/16/18 03:40 Urine Bacteria Absent (Absent) 11/22/18 19:30 Hyaline Casts Present (Absent) A 11/16/18 03:40 Urine Glucose Negative (Negative) 11/22/18 19:30 [place] 1.18 mmol/L (0.6-1.2) 11/22/18 06:34
[2018-11-23] MEDS: Heparin VIAL(*) 5000 UNITS/ML VIAL (FIVE THOUSAND) SUBCUT SCH ×3 (06:13→21:46)
[2018-11-23] MEDS: Tiotropium CAP.INH* CAP.INH/18 MCG (USE ORDER SET !) INH SCH (07:25)
[2018-11-23] MEDS: Mometasone/Formoter 200/5 MDI INH SCH ×2 (07:25→22:00)
[2018-11-23] MEDS: Metoclopramide TAB* 10 MG PO SCH ×2 (07:31→11:49)
[2018-11-23] MEDS: Carbidopa/Levodop 25/100 MG TAB(*) PO SCH ×3 (07:36→17:53)
[2018-11-23] MEDS: clonazePAM TAB(*) 0.5 MG PO SCH ×3 (07:37→17:54)
[2018-11-23] MEDS: Ibuprofen TAB* 400 MG PO PRN ×2 (08:17→20:50)
[2018-11-23] MEDS: Polyethylene Glycol 3350* 17 GM PACKET PO SCH (09:35)
[2018-11-23] MEDS: Docusate CAP* 100 MG PO SCH ×2 (09:36→22:11)
[2018-11-23] MEDS: Sertraline* 100 MG TAB PO SCH (09:36)
[2018-11-23] MEDS: Lithium Carbonate TAB* 300 MG PO SCH ×2 (09:37→20:51)
[2018-11-23] MEDS: Propranolol TAB* 10 MG PO SCH (09:37)
[2018-11-23] MEDS: Sodium Phosphate ADULT ENEMA* 118 ml bottle PR SCH (09:45)
[2018-11-23] MEDS: lamoTRIgine TAB(*) 100 MG PO SCH ×2 (09:50→21:37)
[2018-11-23] MEDS: Cyanocobalamin TAB* 500 MCG PO SCH ×2 (09:50→20:53)
[2018-11-23] MEDS: Pantoprazole TAB * 40 MG TAB PO SCH (09:50)
[2018-11-23] MEDS: Aspirin EC TAB* 81 MG TAB.EC PO SCH (09:50)
[2018-11-23] MEDS: PROBIOTIC PO SCH (11:50)
[2018-11-23] MEDS: ELLURA PO SCH (11:54)
[2018-11-23] MEDS ORDERED: Cinacalcet TAB* 30 MG PO ONE (12:20)
[2018-11-23] MEDS ORDERED: D5NS 0.9% 1000 ML BAG* 1,000 ML IV SCH (15:00)
--- NOTE | 2018-11-23 15:10 | PN ---
Hospitalist Progress Note Date of Service: 11/23/18 Medicine Consult Note Reason for Consult: Ongoing constipation, Hypercalcemia 73F parkinsons dz, c/b neurogenic bladder with recurrent UTIs, Bipolar d/o on lithium c/b hyperpara and hypercalcemia, mild cog impairment who has not had a BM in 5 days. Has had poor PO intake. She was admitted 10/29 for recurrent UTI and course c/b weakness 2/2 to not being able to her home meds, she has been in PMRU with slow recovery, now seemingly plataued from a bowel standpoint. On interview today she is a bit withdrawn, did not do formal cognitive exam but she is preserverative on her coming in and on not taking any more PO meds. She declines maira belly pain, more just "sick and tired of being sick and tired" understandably. Has had 4 enemas in the last few days and 1 small watery stool. Refusing PO, has rec'd 2L fluid. 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 Stool softeners: -Continue Docusate 100 BID Promotility: -Continue Miralax daily She refuses further Golytely (AKA Mag Citrate), would trial lactulose TID at this point Furthermore would do Soapsuds over Fleets enema as the volume of soapsuds is more conducive to productive BM A soapsuds enema, and 1 dose lactulose ordered now --Of note I do think it is reasonable to offer inpatient evaluation if constipation continues, I spoke with patient and her about this and that we would offer NGT with prep if needed. They are hesitant to accept admission because of the following reasons 1) Patients reports he would like a double room if this is to occur and I expressed I could try to offer this but can't guarantee we can keep the room as a double room if it needs to get filled. 2) Furthermore, they would not want NGT. At this point she is refusing PO meds, refusing NGT, so the only options are enemas and IV fluids which can be done in PMRU. 3) They do not want her d/c from hospital to [facility], and I can't guarantee that [facility] could offer a spot back . Her and her elect to stay in PMRU at this time though we are happy to offer her a bed (can't guarantee double bed, will need to address with admin if this is truly a stipulation of her admission if ultimately they are willing for NGT and [facility]) #Hypercal: Endocrine has been consulted and we agree with Dr. Mark's recommendations -Start fluids 100cc x 2 L Thank you for this consult, we will follow along
--- NOTE | 2018-11-23 15:20 | PN ---
Progress Note Date of Service: 11/23/18 Note: MERVIN MCRAE was visited. Nursing and Therapy notes read and reviewed. Case discussed with Dr. Gomez and Dr. Mark. Sensipar started for hypercalcemia per Dr. Mark's recommendations. Will try more IV fluids, Lactulose, and 2 soap suds enemas. May have to move upstairs. Current Medications: Active Medications Generic Name Dose Route Start Last Admin Trade Name Freq PRN Reason Stop Dose Admin Acetaminophen 650 mg 10/31/18 11:30 11/13/18 14:24 Tylenol Tab* PO 650 mg Q6H PRN Administration FEVER/PAIN Aspirin 81 mg 11/01/18 09:00 11/23/18 09:50 Aspirin Ec Tab* PO Not Given DAILY EDVIN Bisacodyl 10 mg 11/12/18 16:17 11/22/18 18:00 Dulcolax Supp* [place] 10 mg DAILY PRN Administration CONSTIPATION Carbidopa/Levodopa 3 tab 11/05/18 13:00 11/23/18 13:59 Sinemet 25/100 Tab(*) PO 3 tab 0730,1300,1730 EDVIN Administration Cinacalcet 30 mg 11/23/18 21:00 Sensipar Tab* PO BID EDVIN Clonazepam 0.5 mg 11/04/18 07:30 11/23/18 13:59 Klonopin Tab(*) PO 0.5 mg 0730,1300,1730 EDVIN Administration Clonazepam 0.5 mg 11/03/18 21:52 11/19/18 23:36 Klonopin Tab(*) PO 0.5 mg Q24H PRN Administration ANXIETY Cyanocobalamin 500 mcg 10/31/18 21:00 11/23/18 09:50 Vitamin B12 Tab* PO Not Given BID EDVIN Docusate Sodium 100 mg 10/31/18 21:00 11/23/18 09:36 Colace Cap* PO 100 mg BID EDVIN Administration Heparin Sodium (Porcine) 5,000 units 10/31/18 14:00 11/23/18 13:59 Heparin Vial(*) SUBCUT 5,000 units Q8HR EDVIN Administration Dextrose/Sodium Chloride 1,000 mls @ 100 mls/hr 11/23/18 15:12 D5ns 0.9% 1000 Ml Bag* IV 11/25/18 01:11 PER RATE EDVIN Ibuprofen 400 mg 11/09/18 09:51 11/23/18 08:17 Motrin Tab* PO 400 mg Q6H PRN Administration HEADACHE Lamotrigine 100 mg 10/31/18 21:00 11/23/18 09:50 Lamictal Tab(*) PO Not Given BID EDVIN [place] Carbonate 300 mg 10/31/18 21:00 11/23/18 09:37 [place] Carbonate Tab* PO 300 mg BID EDVIN Administration Magnesium Hydroxide 30 ml 11/12/18 16:18 11/15/18 07:41 Milk Of Magnesia Liq* PO 30 ml Q6H PRN Administration CONSTIPATION Mirtazapine 15 mg 11/03/18 21:00 11/22/18 19:57 Remeron Tab* PO 15 mg BEDTIME EDVIN Administration Mometasone Furoate/Formoterol Fumar 2 puff 10/31/18 21:00 11/23/18 07:25 Dulera 200/5 Mdi* INH 2 puff BID EDVIN Administration Pto: (Ellura 1 Cap) 1 cap 11/04/18 12:00 11/23/18 11:54 PO Not Given 1200 EDVIN Pto: (Probiotic 10 1 cap 11/04/18 12:00 11/23/18 11:50 Cap) PO 1 cap 1200 EDVIN Administration Ondansetron HCl 4 mg 11/01/18 09:00 11/22/18 16:22 Zofran Odt Tab* PO 4 mg Q4H PRN Administration NAUSEA Pantoprazole Sodium 40 mg 11/01/18 09:00 11/23/18 09:50 Protonix Tab* PO Not Given DAILY EDVIN Polyethylene Glycol/Electrolytes 17 gm 11/14/18 09:00 11/23/18 09:35 Miralax* PO 17 gm DAILY EDVIN Administration Propranolol HCl 10 mg 11/01/18 09:00 11/23/18 09:37 Inderal Tab* PO 10 mg DAILY EDVIN Administration Senna 2 tab 11/03/18 21:00 11/22/18 20:06 Senokot Tab* PO Not Given BEDTIME EDVIN Sertraline HCl 150 mg 11/01/18 09:00 11/23/18 09:36 Zoloft* PO 150 mg DAILY EDVIN Administration Sodium Biphosphate/Sodium Phosphate 1 bottle 11/23/18 09:00 11/23/18 09:45 Fleet Enema* [place] 1 bottle DAILY EDVIN Administration Sodium Chloride 1 spray 11/09/18 09:51 11/11/18 18:14 Sodium Chloride 0.65% Nasal [place]* BOTH NARES 1 spray Q4H PRN Administration CONGESTION Tamsulosin HCl 0.4 mg 10/31/18 21:00 11/22/18 19:57 Flomax Cap* PO 0.4 mg BEDTIME EDVIN Administration Tiotropium [place] 1 cap 11/01/18 09:00 11/23/18 07:25 Spiriva Cap.Inh* INH 1 cap DAILY EDVIN Administration Vital Signs: Vital Signs Temp Pulse Resp BP Pulse Ox 98.3 F 66 20 126/73 92 11/23/18 06:34 11/23/18 07:30 11/23/18 13:59 11/23/18 06:34 11/23/18 08:00 Lab Results: Laboratory Results - last 24 hr 11/22/18 19:30 Urine Color Yellow Urine Appearance Cloudy Urine pH 8.0 Ur Specific [place] 1.031 H Urine Protein Negative Urine Ketones Negative Urine Blood 1+ A Urine Nitrate Negative Urine Bilirubin Negative Urine Urobilinogen Negative Ur Leukocyte Esterase 1+ A Urine WBC (Auto) Trace(0-5/hpf) Urine RBC (Auto) Trace(0-2/hpf) Urine Bacteria Absent Urine Glucose Negative Exam: GENERAL: No acute distress. alert and appropriate. LUNGS: Clear to auscultation bilaterally with decreased breath sounds HEART: regular rate and rhythm ABDOMEN: Soft, +BS, non-distended, EXTREMITIES: no edema NEUROLOGIC: Motor 5/5 BLE with normal sensation. Assessment/Plan: 1. Parkinson's Disease: Continue Sinemet 2. Bipolar Disease: [place]/Lamictal 3. Nausea: Chronic problem, likely from hypercalcemia due to lithium. Starting Sensipar to deal with hypercalcemia. 4. Urinary Tract Infection/Urine retention: Finished Keflex. Will recheck U/A 5. COPD: Spiriva/Dulera. Oxygen prn. Saline ns prn congestion. 6. DVT Prophylaxis: Heparin 7. Anxiety: Scheduled Klonopin 8. Advance Directives: Full code. is surrogate decision maker 9. Constipation: Back on daily miralax. Will resume daily enemas. Try Lactulose and SSE. Dulcolax suppository prn. MOM prn. 10. Intermittent headaches: allow ibuprofen prn. 08/03/19 15:20
[2018-11-23] MEDS: D5NS 0.9% 1000 ML BAG* 1,000 ML IV SCH (16:10)
[2018-11-23] MEDS: Mirtazapine TAB* 15 MG PO SCH (20:52)
[2018-11-23] MEDS: Tamsulosin CAP* 0.4 MG PO SCH (20:53)
[2018-11-23] MEDS: Ondansetron ODT TAB* 4 MG PO PRN (20:57)
[2018-11-23] MEDS: Cinacalcet TAB* 30 MG PO SCH (21:37)
[2018-11-23] MEDS: Senna TAB 8.6 mg* TAB PO SCH (22:11)
[2018-11-24] MEDS: Ondansetron ODT TAB* 4 MG PO PRN ×3 (02:33→16:54)
[2018-11-24] MEDS: Ibuprofen TAB* 400 MG PO PRN (02:59)
[2018-11-24] MEDS: D5NS 0.9% 1000 ML BAG* 1,000 ML IV SCH (06:41)
[2018-11-24] MEDS: Heparin VIAL(*) 5000 UNITS/ML VIAL (FIVE THOUSAND) SUBCUT SCH ×2 (06:41→14:17)
[2018-11-24] MEDS: Mometasone/Formoter 200/5 MDI INH SCH (07:19)
[2018-11-24] MEDS: Tiotropium CAP.INH* CAP.INH/18 MCG (USE ORDER SET !) INH SCH (07:19)
[2018-11-24] MEDS: Carbidopa/Levodop 25/100 MG TAB(*) PO SCH (09:06)
[2018-11-24] MEDS: clonazePAM TAB(*) 0.5 MG PO SCH ×3 (09:06→14:21)
[2018-11-24] MEDS: Polyethylene Glycol 3350* 17 GM PACKET PO SCH (11:00)
[2018-11-24] MEDS: Lithium Carbonate TAB* 300 MG PO SCH (11:00)
[2018-11-24] MEDS: Sertraline* 100 MG TAB PO SCH (11:00)
[2018-11-24] MEDS: lamoTRIgine TAB(*) 100 MG PO SCH (11:00)
[2018-11-24] MEDS: Pantoprazole TAB * 40 MG TAB PO SCH (11:00)
[2018-11-24] MEDS: Docusate CAP* 100 MG PO SCH (11:00)
[2018-11-24] MEDS: Cyanocobalamin TAB* 500 MCG PO SCH (11:00)
[2018-11-24] MEDS: Aspirin EC TAB* 81 MG TAB.EC PO SCH (11:00)
[2018-11-24] MEDS: Propranolol TAB* 10 MG PO SCH (11:00)
[2018-11-24] MEDS: Cinacalcet TAB* 30 MG PO SCH (11:00)
[2018-11-24] MEDS: Sodium Phosphate ADULT ENEMA* 118 ml bottle PR SCH (11:19)
[2018-11-24] MEDS: ELLURA PO SCH (12:06)
[2018-11-24] MEDS: PROBIOTIC PO SCH (12:06)
[2018-11-24] MEDS ORDERED: LEVODOPA PO SCH (13:00)
[2018-11-24] MEDS ORDERED: CARBIDOPA PO SCH (13:00)
--- NOTE | 2018-11-24 16:54 | PN ---
Progress Note Date of Service: 11/24/18 Note: MERVIN MCRAE was visited. Nursing notes read and reviewed. Still no BM. Still quite nauseated, and not taking a lot of PO. She needs to be transferred to the medical service under the care of Dr. Gomez and the hospitalist service. Current Medications: Active Medications Generic Name Dose Route Start Last Admin Trade Name Freq PRN Reason Stop Dose Admin Acetaminophen 650 mg 10/31/18 11:30 11/13/18 14:24 Tylenol Tab* PO 650 mg Q6H PRN Administration FEVER/PAIN Aspirin 81 mg 11/01/18 09:00 11/24/18 11:00 Aspirin Ec Tab* PO Not Given DAILY EDVIN Bisacodyl 10 mg 11/12/18 16:17 11/22/18 18:00 Dulcolax Supp* [place] 10 mg DAILY PRN Administration CONSTIPATION Carbidopa/Levodopa 3 tab 11/24/18 13:00 11/24/18 13:05 Carbidopa/Levodopa Odt (Nf) PO 3 tab 0730,1300,1730 EDVIN Administration Cinacalcet 30 mg 11/23/18 21:00 11/24/18 11:00 Sensipar Tab* PO Not Given BID EDVIN Clonazepam 0.5 mg 11/04/18 07:30 11/24/18 14:21 Klonopin Tab(*) PO Not Given 0730,1300,1730 EDVIN Clonazepam 0.5 mg 11/03/18 21:52 11/19/18 23:36 Klonopin Tab(*) PO 0.5 mg Q24H PRN Administration ANXIETY Cyanocobalamin 500 mcg 10/31/18 21:00 11/24/18 11:00 Vitamin B12 Tab* PO Not Given BID EDVIN Docusate Sodium 100 mg 10/31/18 21:00 11/24/18 11:00 Colace Cap* PO Not Given BID EDVIN Heparin Sodium (Porcine) 5,000 units 10/31/18 14:00 11/24/18 14:17 Heparin Vial(*) SUBCUT 5,000 units Q8HR EDVIN Administration Dextrose/Sodium Chloride 1,000 mls @ 100 mls/hr 11/23/18 15:12 11/24/18 06:41 D5ns 0.9% 1000 Ml Bag* IV 11/25/18 01:11 100 mls/hr PER RATE EDVIN Administration Ibuprofen 400 mg 11/09/18 09:51 11/24/18 02:59 Motrin Tab* PO 400 mg Q6H PRN Administration HEADACHE Lamotrigine 100 mg 10/31/18 21:00 11/24/18 11:00 Lamictal Tab(*) PO Not Given BID EDVIN [place] Carbonate 300 mg 10/31/18 21:00 11/24/18 11:00 [place] Carbonate Tab* PO Not Given BID EDVIN Magnesium Hydroxide 30 ml 11/12/18 16:18 11/15/18 07:41 Milk Of Magnesia Liq* PO 30 ml Q6H PRN Administration CONSTIPATION Mirtazapine 15 mg 11/03/18 21:00 11/23/18 20:52 Remeron Tab* PO 15 mg BEDTIME EDVIN Administration Mometasone Furoate/Formoterol Fumar 2 puff 10/31/18 21:00 11/24/18 07:19 Dulera 200/5 Mdi* INH 2 puff BID EDVIN Administration Pto: ([place] 1 Cap) 1 cap 11/04/18 12:00 11/24/18 12:06 PO Not Given 1200 EDVIN Pto: (Probiotic 10 1 cap 11/04/18 12:00 11/24/18 12:06 Cap) PO Not Given 1200 EDVIN Ondansetron HCl 4 mg 11/01/18 09:00 11/24/18 09:02 Zofran Odt Tab* PO 4 mg Q4H PRN Administration NAUSEA Pantoprazole Sodium 40 mg 11/01/18 09:00 11/24/18 11:00 Protonix Tab* PO Not Given DAILY [facility] Polyethylene Glycol/Electrolytes 17 gm 11/14/18 09:00 11/24/18 11:00 Miralax* PO Not Given DAILY EDVIN Propranolol HCl 10 mg 11/01/18 09:00 11/24/18 11:00 Inderal Tab* PO Not Given DAILY EDVIN Senna 2 tab 11/03/18 21:00 11/23/18 22:11 Senokot Tab* PO Not Given BEDTIME EDVIN Sertraline HCl 150 mg 11/01/18 09:00 11/24/18 11:00 Zoloft* PO Not Given DAILY [facility] Sodium Biphosphate/Sodium Phosphate 1 bottle 11/23/18 09:00 11/24/18 11:19 Fleet Enema* [place] Not Given DAILY EDVIN Sodium Chloride 1 spray 11/09/18 09:51 11/11/18 18:14 Sodium Chloride 0.65% Nasal [place]* BOTH NARES 1 spray Q4H PRN Administration CONGESTION Tamsulosin HCl 0.4 mg 10/31/18 21:00 11/23/18 20:53 Flomax Cap* PO 0.4 mg BEDTIME EDVIN Administration Tiotropium [place] 1 cap 11/01/18 09:00 11/24/18 07:19 Spiriva Cap.Inh* INH 1 cap DAILY EDVIN Administration Vital Signs: Vital Signs Temp Pulse Resp BP Pulse Ox 98.2 F 72 14 138/68 91 11/24/18 15:55 11/24/18 15:55 11/24/18 15:55 11/24/18 15:55 11/24/18 16:00 Exam: GENERAL: No acute distress. alert and appropriate. LUNGS: Clear to auscultation bilaterally with decreased breath sounds HEART: regular rate and rhythm ABDOMEN: Soft, +BS, non-distended, EXTREMITIES: no edema NEUROLOGIC: Motor 5/5 BLE with normal sensation. Assessment/Plan: 1. Parkinson's Disease: Continue Sinemet 2. Bipolar Disease: [place]/Lamictal 3. Nausea: Chronic problem, likely from hypercalcemia due to lithium. Starting Sensipar to deal with hypercalcemia. Moving to acute hospital bed 4. Urinary Tract Infection/Urine retention: Finished Keflex. Will recheck U/A 5. COPD: Spiriva/Dulera. Oxygen prn. Saline ns prn congestion. 6. DVT Prophylaxis: Heparin 7. Anxiety: Scheduled Klonopin 8. Advance Directives: Full code. is surrogate decision maker 9. Constipation: Back on daily miralax. Will resume daily enemas. Will transfer to hospitalist service 10. Intermittent headaches: allow ibuprofen prn. 11/24/18 16:54
[2018-11-24] MEDS ORDERED: clonazePAM TAB(*) 0.5 MG PO PRN (17:07)
[2018-11-24] MEDS ORDERED: NS 0.9% 1000 ML** 1,000 ML IV SCH (17:15)
[2018-11-24] MEDS ORDERED: Ibuprofen ADULT LIQ* 600 MG/30 ML UDC PO PRN (17:39)
[2018-11-24] MEDS ORDERED: Acetaminophen ADULT LIQ* 650 MG/20.3 ML UDC PO PRN (17:39)
[2018-11-24] MEDS ORDERED: Ondansetron INJ* 2 MG/ML VIAL IV PRN (17:40)
[2018-11-24 18:18] LABS: ALT < 3 U/L (7-52); AST 5 U/L (13-39); Albumin 3.7 g/dL (3.2-5.2); Albumin/Globulin Ratio 1.9 (1-3); Alkaline Phosphatase 98 U/L (34-104); BUN/Creatinine Ratio 7.8 (8-20); Blood Urea Nitrogen 9 mg/dL (6-24); CO2 Carbon Dioxide 24 mmol/L (22-32); EGFR African American 56.3 (>60); EGFR Non-African American 46.5 (>60); Glucose 107 mg/dL (70-100); Potassium 3.4 mmol/L (3.5-5.0); Sodium 140 mmol/L (135-145); Total Protein 5.7 g/dL (6.4-8.9)
[2018-11-24 18:24] LABS: Anion Gap 4 mmol/L (2-11); Chloride 112 mmol/L (101-111)
[2018-11-24] MEDS ORDERED: Carbidopa/Levodop 25/100 MG TAB(*) PO SCH (18:30)
[2018-11-24 19:04] VITALS: BP 144/73
[2018-11-24 19:31] LABS: Urine Appearance Clear; Urine Bacteria 1+ (Absent); Urine Bilirubin Negative (Negative); Urine Blood Negative (Negative); Urine Color Yellow; Urine Glucose Negative (Negative); Urine Ketones Negative (Negative); Urine Nitrite Negative (Negative); Urine Protein Negative (Negative); Urine Red Blood Cell Trace(0-2/hpf) (Absent); Urine Specific Gravity 1.008 (1.010-1.030); Urine Squamous Epithelial Cell Present (Absent); Urine Urobilinogen Negative (Negative); Urine White Blood Cell Trace(0-5/hpf) (Absent)
--- NOTE | 2018-11-24 20:30 | DS ---
CC: Dr. Angela Leal * DISCHARGE SUMMARY: DATE OF ADMISSION: 10/31/18 DATE OF DISCHARGE: 11/24/18 DISCHARGE DIAGNOSES: 1. Parkinson's disease. 2. Bipolar disease. 3. Constipation. 4. Nausea and vomiting. 5. Hypercalcemia. 6. Urethral stricture. 7. Chronic obstructive pulmonary disease. 8. Right total knee replacement. 9. Hyperparathyroidism from lithium use. HISTORY OF PRESENT ILLNESS AND HOSPITAL COURSE: For complete history of the events leading up to her rehab stay, please see the history and physical dictated by me on 10/31/18. While on the rehab unit, the patient had a lot of difficulty with poor p.o. intake secondary to nausea. She had some difficulties with chronic constipation as well. Her Capellan catheter was replaced on 2 separate occasions because of urinary retention. The patient continued with Capellan catheter at the time of discharge. It was felt that chronic urinary retention was contributing to her frequent urinary tract infections. The patient also had difficulty with constipation. At one point, during her rehab stay, she went 11 days without a bowel movement. She finally had a bowel movement after 4 doses of lactulose and daily Fleet enemas. The patient had been put on a scopolamine patch, but it was felt that this contributed to her constipation and this was later discontinued. She was receiving Zofran for her nausea. After the patient had 2 bowel movements with lactulose, she again went 5 days without a bowel movement. She refused to take anything orally. The hospitalists were consulted on 11/22/18. In addition, Dr. Denzel Mark, her cotton presser who had seen her for hyperparathyroidism saw her for her hypercalcemia. He recommended starting her on Sensipar 30 mg twice a day. After the patient continued to have difficulty eating, it was decided to move the patient to the acute medical service. The patient was on IV fluids and had a Capellan catheter at the time of discharge. DISCHARGE DIET: Regular. DISCHARGE MEDICATIONS: Included: 1. Sinemet 25/100 three tablets at 8:30, 1 p.m., and 6:30 at night. 2. Sensipar 30 mg twice daily. 3. Klonopin 0.5 mg scheduled, the Klonopin was dosed at 7:30, 1 p.m., and 5:30 p.m. 4. Vitamin B12 500 mcg twice daily. 5. [place] carbonate 300 mg twice daily. 6. Lamictal 100 mg twice daily. 7. Motrin 400 mg every 6 hours as needed. 8. Heparin 5000 units subcutaneously every 8 hours. 9. She was on Inderal 10 mg daily. 10. Zoloft 150 mg daily. 11. Fleet enema daily. 12. Protonix 40 mg daily. Further treatment and therapy per the hospitalist team. [id number]/[facility] #: [id number] MTDD
[2018-11-24] MEDS ORDERED: lamoTRIgine TAB(*) 100 MG PO SCH (21:00)
[2018-11-24] MEDS ORDERED: Cyanocobalamin TAB* 500 MCG PO SCH (21:00)
[2018-11-24] MEDS ORDERED: Tamsulosin CAP* 0.4 MG PO SCH (21:00)
[2018-11-24] MEDS ORDERED: CMC:Lithium Carbonate ER (NF) 300 MG TAB.ER PO SCH (21:00)
[2018-11-24] MEDS ORDERED: Mometasone/Formoter 100/5 MDI INH SCH (21:00)
[2018-11-24] MEDS ORDERED: Cinacalcet TAB* 30 MG PO SCH (21:00)
[2018-11-24] MEDS ORDERED: Mirtazapine TAB* 15 MG PO SCH (21:00)
[2018-11-24] MEDS ORDERED: Heparin VIAL(*) 5000 UNITS/ML VIAL (FIVE THOUSAND) SUBCUT SCH (22:00)
[2018-11-25] MEDS ORDERED: Aspirin EC TAB* 81 MG TAB.EC PO SCH (09:00)
[2018-11-25] MEDS ORDERED: ACIDOPH PARACASEI B LACTIS PO SCH (09:00)
[2018-11-25] MEDS ORDERED: ELLURA PO SCH (09:00)
[2018-11-25] MEDS ORDERED: Sertraline* 100 MG TAB PO SCH (09:00)
[2018-11-25] MEDS ORDERED: Tiotropium CAP.INH* CAP.INH/18 MCG (USE ORDER SET !) INH SCH (09:00)
[2018-11-25] MEDS ORDERED: Pantoprazole TAB * 40 MG TAB PO SCH (09:00)
[2018-11-25] MEDS ORDERED: Propranolol TAB* 10 MG PO SCH (09:00)
== END 2018-11-24 17:02 | disposition short-term general hospital (02) | DRG 945 ==
LOC: PMRU 10:34 → SSU 11-24 17:51
PROVIDERS: ADMIT Physical Medicine & Rehabilitation; ATTEND Physical Medicine & Rehabilitation
PROC: F07Z5ZZ Bed Mobility Treatment (ICD-10-PCS; principal; 2018-10-31)
PROC: F07Z9ZZ Gait Training/Functional Ambulation Treatment (ICD-10-PCS; 2018-10-31)
PROC: F07Z8ZZ Transfer Training Treatment (ICD-10-PCS; 2018-10-31)
PROC: F08Z0ZZ Bathing/Showering Techniques Treatment (ICD-10-PCS; 2018-10-31)
PROC: F08Z1ZZ Dressing Techniques Treatment (ICD-10-PCS; 2018-10-31)
PROC: F08Z3ZZ Feeding/Eating Treatment (ICD-10-PCS; 2018-10-31)
DX: R53.81 Other malaise (principal); N39.0 Urinary tract infection, site not specified; G20 Parkinson's disease; J44.9 Chronic obstructive pulmonary disease, unspecified; E83.52 Hypercalcemia; N31.9 Neuromuscular dysfunction of bladder, unspecified; R63.0 Anorexia; K59.00 Constipation, unspecified; R11.2 Nausea with vomiting, unspecified; N35.92 Unspecified urethral stricture, female; F31.9 Bipolar disorder, unspecified; Z96.651 Presence of right artificial knee joint; R33.8 Other retention of urine; F41.9 Anxiety disorder, unspecified; G31.84 Mild cognitive impairment of uncertain or unknown etiology; B95.2 Enterococcus as the cause of diseases classified elsewhere; R51 Headache; S30.0XXD Contusion of lower back and pelvis, subsequent encounter; X58.XXXD Exposure to other specified factors, subsequent encounter; Z16.39 Resistance to other specified antimicrobial drug; Z68.21 Body mass index [BMI] 21.0-21.9, adult; Z79.82 Long term (current) use of aspirin; Z79.899 Other long term (current) drug therapy; Z88.1 Allergy status to other antibiotic agents; Z88.2 Allergy status to sulfonamides; Z87.891 Personal history of nicotine dependence; Z82.49 Family history of ischemic heart disease and other diseases of the circulatory system; Z82.5 Family history of asthma and other chronic lower respiratory diseases; Z82.69 Family history of other diseases of the musculoskeletal system and connective tissue; Z82.0 Family history of epilepsy and other diseases of the nervous system
CPT/HCPCS: 36415; 71046; 74018; 74019; 74177; 80048; 80053; 80178; 81003; 81015; 85025; 87077; 87086; 87186; 94640; A9270-GY; J1644; Q9967

== ENCOUNTER 2018-11-24 17:40 | Inpatient (IN) | payer MEDICARE ==
--- NOTE | 2018-11-24 19:08 | HP ---
Amended report to correct patient account number. HISTORY AND PHYSICAL: DATE OF ADMISSION: 11/24/18 PRIMARY CARE PROVIDER: Dr. Angela Leal. SUPPLY CATALOGUER: Matthew Nelson, the patient's . CODE STATUS: Full. CHIEF COMPLAINT: Constipation. REASON FOR ADMISSION: Constipation. SOURCE OF INFORMATION: HPI was obtained from review of the chart, review with family, and review with the patient. She is a fair to poor historian. HISTORY OF PRESENT ILLNESS: A 73-year-old female with past medical history of Parkinson's disease; bipolar disorder, on lithium c/b hypercalcemia; history of urethral stricture; neurogenic bladder with chronic urinary retention; COPD; mild dementia; cognitive impairment, who is representing to the hospital from physical medicine rehab unit where she was discharged to on 10/31/18 after failure to thrive in PMRU and 5 days of constipation. The patient was seen in the hospital for weakness 10/29/18 to 10/31/18 where she was found to have urinary tract infection. Her urinary tract infection caused her to be weak and stopped taking her Sinemet, which led to even worsening progressive weakness. She was admitted to the hospital and treated for UTI and then discharged to physical medicine rehab where she initially made some progress, although relapsed with poor p.o. intake and worsening constipation that has not been treatable with oral medications or enemas. The hospitalist medicine team opened reconsultation on 11/22/18 and attempted conservative therapy, although the patient failed to progress and on 11/24/18, a decision to readmit the patient to the hospital for aggressive constipation treatment was made with and care team. Cyndi herself is complaining of abdominal pain, nausea, weakness, and generally malaise. She is frustrated with her slow progress and is amenable to aggressive treatments for her constipation. She was admitted directly from [facility] and there was no emergency room course, although vital signs on evaluation: Blood pressure 138/68, temperature 98.2, heart rate 72, respiratory rate 14, oxygen saturation 91% on room air. Last labs done were on 11/22/18, which were remarkable for hemoglobin of 11, a creatinine of 1.23, and elevated calcium at 12.3. A urinalysis was done on 06/11, which showed no growth to date. Of note, she has been unable to take even her regular medications now for 48 hours secondary to her nausea. PAST MEDICAL HISTORY: Parkinson's disease; depression; history of bipolar disorder, on lithium; neurogenic bladder with urethral stricture, with frequent UTIs; cognitive impairment; COPD; hyperparathyroidism; and chronic hypercalcemia secondary to lithium use. PAST SURGICAL HISTORY: Status post right total knee replacement, status post oophorectomy, status post right hand open reduction and internal fixation. MEDICATIONS PRIOR TO ADMISSION: 1. Aspirin 81 mg p.o. daily. 2. Symbicort 160/4.5 two puffs inhaled b.i.d. 3. Carbidopa/levodopa 25/100 p.o. t.i.d. 4. Vitamin D 25 mcg p.o. daily. 5. Clonazepam 0.5 mg p.o. t.i.d. as needed for anxiety. 6. Vitamin B12 500 mcg p.o. b.i.d. 7. Colace 50 mg p.o. b.i.d. 8. Ellura 1 pill p.o. daily. 9. Probiotic 1 capsule p.o. daily. 10. Lamotrigine 100 mg p.o. b.i.d. 11. [place] carbonate 300 mg p.o. b.i.d. 12. Remeron 15 mg p.o. q.h.s. 13. Omeprazole 40 mg p.o. daily. 14. Ondansetron 4 mg p.o. q.6 hours p.r.n. for nausea and vomiting. 15. Oxcarbazepine 600 mg p.o. b.i.d. 16. Propranolol 10 mg p.o. daily. 17. Sertraline 150 mg p.o. q.a.m. 18. Tamsulosin 0.4 mg p.o. q.h.s. 19. Spiriva 1 capsule inhaled daily. ALLERGIES: To AMOXICILLIN, CLARITHROMYCIN, MOXIFLOXACIN, and SULFA; the patient develops a rash. FAMILY HISTORY: Her mother had Parkinson's disease. Her sister had multiple sclerosis. Father had asthma. 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 She has a 25-pack year tobacco use and she quit in 2012. She is a non-alcohol user and a lifetime nonuser of illicit medications. REVIEW OF SYSTEMS: The patient is endorsing fatigue and malaise, but denies fevers or chills. She denies vision changes. Endorses headache. ENT and Mouth : She denies sore throat, but does endorse difficulty swallowing. Cardiovascular: Denies chest pain or palpitations. Respiratory: Denies shortness of breath, cough, or pleuritic chest pain. GI: Does endorse nausea, vomiting, diarrhea, abdominal pain, and constipation. : Denies dysuria or hematuria. Musculoskeletal: Denies myalgias or arthralgias. Skin: Denies new rashes or lesions. Neurologic: Denies new focal weakness or numbness. Psychiatric: Endorses depression, but denies SI or HI. Endocrine: Denies polyuria or polydipsia. Heme: Denies easy bruising, bleeding, or lymphadenopathy. Allergy and Immune: Denies seasonal or frequent infections. PHYSICAL EXAMINATION GENERAL APPEARANCE: This is a fatigued, chronically ill-appearing woman, in no acute distress. VITAL SIGNS: At the time of physical exam, blood pressure 121/67, temperature 98.7, pulse 69, oxygen 90% on room air. HEENT: She has moist mucous membranes. Pupils are equal and reactive. Sclerae anicteric. NECK: Supple with no supraclavicular or cervical lymphadenopathy. RESPIRATORY: Lungs clear to auscultation bilaterally. CARDIAC: Regular rate and rhythm with no murmurs, rubs, or gallops. ABDOMEN: Belly is soft, nondistended. Tender to suprapubic and left and right lower quadrant. MUSCULOSKELETAL: She does not participate in exam. NEURO: Cranial nerves II through XII are grossly intact with no focal deficits. She is A and O x2 to 3, although does not answer many of my questions. SKIN: Without rashes or lesions. DIAGNOSTIC STUDIES/LAB DATA: Last labs on 11/22/18: White blood cell count 6.8, hemoglobin 11.1, hematocrit 32, platelets 187. Chemistry: Sodium is 135, potassium is 3.5, chloride 105, carbon dioxide 26, BUN 13, creatinine 1.23, glucose 113, calcium 12.3. UA was done on 11/22/18, which shows 1+ leuk esterase and ultimately urine culture with no growth to date. Last lithium level on 11/22/18 was 1.18. CTAP: Neg for obstruction on 11/22/18 Labs and studies reviewed by myself. ASSESSMENT AND PLAN: This is a 73-year-old female with past medical history of Parkinson's disease, complicated by neurogenic bladder, with recurrent urinary tract infections; bipolar disorder, on lithium, complicated by hyperparathyroidism and hypercalcemia; mild cognitive impairment, who was recently admitted for UTI, discharged to [facility] where her course was complicated by severe constipation which is multifactorial from hypercalcemia, dehydration, and she is being readmitted for aggressive mgmt. 1. Constipation. A CT abdomen and pelvis was done on 11/22/18, which showed no obstruction. She clinically has no obstruction. This is likely constipation from her hypercalcemia and deconditioning. She needs stool softening via osmotic agents or others and promotility agents along with gentle movement to stimulate her bowel naturally. Given failure of oral and enemas, we will place NG tube and start lactulose 4 times daily. We will continue soapsuds enemas. If no bowel movement in 24 hours, consider GoLYTELY prep through NG tube. 2. Hypercalcemia 2/2 to lithium use. Endocrine has been consulted and Dr. Mark recommended Sensipar and continue fluids at 75 cc per hour. 3. Parkinson's disease. We will continue Sinemet, which will need to be placed through NG tube. 4. Bipolar disorder and underlying depression. Lamotrigine, lithium, mirtazapine, sertraline, propranolol, clonazepam will be continued. 5. Recurrent urinary tract infections. We will recheck UA on admission. Currently with Capellan catheter. Consider Urology referral to discuss prophylaxis with antibiotics or other prophylactic medications. 6. Gastroesophageal reflux disease. Continue PPI. 7. Chronic obstructive pulmonary disease. Continue Spiriva and home inhalers. 8. Mild cognitive impairment. This decompensates significantly during acute illness. The patient has supportive care team with and aides. 9. DVT prophylaxis: The patient is on subcu heparin. 10. Code status is full. 11. Disposition: The patient is stable for admission to surgical stay unit for NG tube placement without telemetry.In terms of disposition, PT and OT have been consulted and Case Management will be involved as likely the patient will need subacute rehab again if we are able to successful alleviate her constipation. TIME SPENT: Sixty-five minutes was spent in the planning of this admission with over half of that spent directly at the bedside of the patient providing direct patient care. Plan of care was discussed with the patient and her , who agree given the circumstances which are not ideal. [id number]/[facility] #: [id number] NEMO
[2018-11-24] MEDS ORDERED: NS 0.9% 1000 ML** 1,000 ML IV SCH (21:30)
[2018-11-24] MEDS ORDERED: Acetaminophen TAB* 325 MG PO PRN (21:32)
[2018-11-24] MEDS ORDERED: Bisacodyl SUPP* 10 MG SUPP PR PRN (21:34)
[2018-11-24] MEDS ORDERED: clonazePAM TAB(*) 0.5 MG PO PRN (21:37)
[2018-11-24] MEDS ORDERED: Ibuprofen TAB* 400 MG PO PRN (21:38)
[2018-11-24] MEDS ORDERED: Magnesium Hydroxide LIQ* 30 ML UDC PO PRN (21:41)
[2018-11-24] MEDS ORDERED: Acetaminophen ADULT LIQ* 650 MG/20.3 ML UDC PO PRN (21:52)
[2018-11-24] MEDS ORDERED: CMCS: Lithium Carbonate ER (NF) 300 MG TAB.ER PO SCH (22:00)
[2018-11-24] MEDS ORDERED: Lithium LIQ* 300 MG/5 ML UDC PO SCH (22:42)
[2018-11-24] MEDS: lamoTRIgine TAB(*) 100 MG PO SCH (23:05)
[2018-11-24] MEDS: LEVODOPA PO SCH (23:06)
[2018-11-24] MEDS: Heparin VIAL(*) 5000 UNITS/ML VIAL (FIVE THOUSAND) SUBCUT SCH (23:06)
[2018-11-24] MEDS: CARBIDOPA PO SCH (23:06)
[2018-11-24] MEDS: Lithium LIQ* 300 MG/5 ML UDC PO SCH (23:09)
[2018-11-25] MEDS: Mometasone/Formoter 100/5 MDI INH SCH ×3 (00:51→20:18)
[2018-11-25] MEDS: Heparin VIAL(*) 5000 UNITS/ML VIAL (FIVE THOUSAND) SUBCUT SCH ×3 (05:23→23:05)
[2018-11-25] MEDS: CARBIDOPA PO SCH (07:37)
[2018-11-25] MEDS: LEVODOPA PO SCH (07:37)
--- NOTE | 2018-11-25 07:37 | PN ---
Subjective Date of Service: 11/25/18 Interval History: Transferred from [facility] yesterday for 5 days of constipation. NG tube placed and lactulose started via NG without bowel movement as of this morning. Her is at the bedside and explains that she has been unable to take the sinemet tabs, and the dissolving tabs took 3 hours to dissolve. She feels the same as yesterday--some abdominal discomfort but no pain, occasional nausea that is well controlled with zofran, and weakness--the thought of getting out of bed today is overwhelming to her. Objective Active Medications: Acetaminophen (Tylenol Adult Liq*) 650 mg PO Q8H PRN PRN Reason: MILD PAIN OR TEMP > 100.4 Aspirin (Aspirin Ec Tab*) 81 mg PO DAILY [facility] Bisacodyl (Dulcolax Supp*) 10 mg [place] DAILY PRN PRN Reason: CONSTIPATION Carbidopa/Levodopa (Carbidopa/Levodopa Odt (Nf)) 3 tab PO 0830,1300,1830 [facility] Last Admin: 11/24/18 23:06 Dose: 3 tab Clonazepam (Klonopin Tab(*)) 0.5 mg PO TID PRN PRN Reason: ANXIETY Heparin Sodium (Porcine) (Heparin Vial(*)) 5,000 units SUBCUT Q8H [facility] Last Admin: 11/25/18 05:23 Dose: 5,000 units Sodium Chloride (Ns 0.9% 1000 Ml) 1,000 mls @ 75 mls/hr IV PER RATE [facility] Last Admin: 11/25/18 07:23 Dose: 75 mls/hr Ibuprofen (Motrin Liq Adult*) 600 mg PO TID PRN PRN Reason: MILD PAIN OR TEMP > 100.4 Lactulose (Lactulose*) 30 ml PO QID [facility] Last Admin: 11/24/18 23:04 Dose: 30 ml Lamotrigine (Lamictal Tab(*)) 100 mg PO BID [facility] Last Admin: 11/24/18 23:05 Dose: 100 mg [place] Citrate ([place] Liq*) 300 mg PO Q12HR [facility] Last Admin: 11/24/18 23:09 Dose: 300 mg Magnesium Hydroxide (Milk Of Magnesia Liq*) 30 ml PO Q6H PRN PRN Reason: CONSTIPATION Mirtazapine (Remeron Tab*) 15 mg PO BEDTIME [facility] Mometasone Furoate/Formoterol Fumar (Dulera 100/5 Mdi*) 2 puff INH BID EDVIN Last Admin: 11/25/18 00:51 Dose: 2 puff Ondansetron HCl (Zofran Inj*) 4 mg IV Q4H PRN PRN Reason: NAUSEA Pantoprazole Sodium (Protonix Tab*) 40 mg PO DAILY EDVIN Propranolol HCl (Inderal Tab*) 10 mg PO DAILY [facility] Sertraline HCl (Zoloft*) 100 mg PO DAILY [facility] Sodium Chloride (Sodium Chloride 0.65% Nasal [place]*) 1 spray BOTH NARES Q4H PRN PRN Reason: CONGESTION Vital Signs - 8 hr 11/24/18 11/25/18 23:34 06:18 Temperature 97.7 F 98.8 F Pulse Rate 70 90 Respiratory 16 18 Rate Blood Pressure 150/83 131/83 (mmHg) O2 Sat by Pulse 92 95 Oximetry Oxygen Devices in Use Now: None Appearance: hypokinetic, depressed Eyes: No Scleral Icterus Ears/Nose/Mouth/Throat: - - VERY dry. sinemet tabs are crusted in her teeth and lips. Neck: NL Appearance and Movements; NL JVP Respiratory: Symmetrical Chest Expansion and Respiratory Effort, - - few crackles at both bases. she is able to sit upright without assistance. Cardiovascular: NL Sounds; No Murmurs; No JVD, RRR Abdominal: NL Sounds; No Tenderness; No Distention, - - soft, mildly tender LLQ , bowel sounds are active in all quadrants , espinoza catheter in place Lymphatic: No Cervical Adenopathy Extremities: No Edema Skin: No Rash or Ulcers Neurological: - - intention tremor that resolves with rest Assess/Plan/Problems-Billing Assessment: This is a 73 year old woman with history of Parkinson's Disease who was recently admitted for UTI and weakness after missing sinimet, then was transferred to [facility] for [facility]hab. [facility] stay complicated by constipation x 5 days, re-admitted to inpatient on 11/24 for constipation management with an NG tube due to refusal to take PO - Patient Problems (1) Constipation Current Visit: Yes Status: Acute Code(s): K59.00 - CONSTIPATION, UNSPECIFIED SNOMED Code(s): 49096040 Comment: now with NGT for lactulose, can advance to golytely if still unsuccessful continue enemas CT abd/pelvis negative for obstruction encourage ambulation as tolerated -- OOB today increase IVF (2) Hyperparathyroidism due to lithium therapy Current Visit: No Status: Acute Code(s): E21.1 - SECONDARY HYPERPARATHYROIDISM, NOT ELSEWHERE CLASSIFIED SNOMED Code(s): 124175013 Comment: Chronic and likely worsened by inactivity Recheck labs today Evaluated by Dr. Mark, who recommended medical management, and sensipar was started with improvement in calcium levels--recheck today Discontinuation of lithium deemed not to be a viable option due to successful mood stabilization Renal function is slightly above baseline Continue NS at 75/hr No parathyroid adenoma noted on US (3) Parkinson disease Current Visit: No Status: Acute Code(s): G20 - PARKINSON'S DISEASE SNOMED Code(s): 94289378 Comment: Needs an alternative formulation of sinemet--either patch or suspension? I discussed with pharmacy--they are looking in to this With recent admission for decompensated symptoms: from last visit: "the process probably started of her UTI end of September and progressed with poor PO intake, dehydration, worsening hypercalcemia, inability to take PO Sinemet, and PD decompensation." MRI brain was negative for stroke. 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 Continue [place], Lamotrigine, clonazepam, mirtazapine, sertraline . (5) Weakness Current Visit: No Status: Acute Priority: High Code(s): R53.1 - WEAKNESS SNOMED Code(s): 55787075 Comment: her need for STR will need to be reassessed once she has a bowel movement and NGT is out and she is re-evaluated by PT (6) COPD (chronic obstructive pulmonary disease) Current Visit: No Status: Chronic Priority: High Code(s): J44.9 - CHRONIC OBSTRUCTIVE PULMONARY DISEASE, UNSPECIFIED SNOMED Code(s): 64097238 Comment: stable (7) DVT prophylaxis Current Visit: No Status: Acute Priority: Medium Code(s): GXR9133 - SNOMED Code(s): 002504213 Comment: - SQ heparin. (8) Urinary retention Current Visit: Yes Status: Acute Code(s): R33.9 - RETENTION OF URINE, UNSPECIFIED SNOMED Code(s): 464770452
[2018-11-25] MEDS: Lithium LIQ* 300 MG/5 ML UDC PO SCH ×2 (08:45→23:00)
[2018-11-25] MEDS: Propranolol TAB* 10 MG PO SCH (08:45)
[2018-11-25] MEDS: Ondansetron INJ* 2 MG/ML VIAL IV PRN ×2 (08:45→23:05)
[2018-11-25] MEDS: Pantoprazole TAB * 40 MG TAB PO SCH (08:45)
[2018-11-25] MEDS: lamoTRIgine TAB(*) 100 MG PO SCH ×2 (08:45→23:01)
[2018-11-25] MEDS: Sertraline* 100 MG TAB PO SCH (08:45)
[2018-11-25] MEDS: Aspirin EC TAB* 81 MG TAB.EC PO SCH (08:45)
[2018-11-25] MEDS: NS 0.9% 1000 ML** 1,000 ML IV SCH ×2 (08:47→17:46)
[2018-11-25 08:58] LABS: ALT < 3 U/L (7-52); AST 5 U/L (13-39); Albumin 3.7 g/dL (3.2-5.2); Albumin/Globulin Ratio 1.9 (1-3); Alkaline Phosphatase 102 U/L (34-104); BUN/Creatinine Ratio 9.6 (8-20); Blood Urea Nitrogen 10 mg/dL (6-24); CO2 Carbon Dioxide 22 mmol/L (22-32); Calcium 10.5 mg/dL (8.6-10.3); EGFR African American 63.2 (>60); EGFR Non-African American 52.2 (>60); Glucose 102 mg/dL (70-100); Potassium 3.3 mmol/L (3.5-5.0); Sodium 140 mmol/L (135-145); Total Protein 5.7 g/dL (6.4-8.9)
[2018-11-25 08:59] LABS: Anion Gap 4 mmol/L (2-11); Chloride 114 mmol/L (101-111)
[2018-11-25] MEDS: ROTIGOTINE 2 MG/24 HR TOPICAL SCH (08:59)
[2018-11-25] MEDS ORDERED: KCL 20 MEQ/100 ML IVPREMIX* 20 MEQ/100 ML BAG IV ONE (10:10)
[2018-11-25] MEDS: Ibuprofen ADULT LIQ* 600 MG/30 ML UDC PO PRN (12:01)
[2018-11-25 19:50] LABS: Phosphorus 1.9 mg/dL (2.5-5.0)
[2018-11-25] MEDS: Mirtazapine TAB* 15 MG PO SCH (23:01)
[2018-11-26] MEDS: NS 0.9% 1000 ML** 1,000 ML IV SCH ×2 (06:18→15:43)
[2018-11-26] MEDS: Heparin VIAL(*) 5000 UNITS/ML VIAL (FIVE THOUSAND) SUBCUT SCH ×3 (06:19→22:11)
[2018-11-26 07:13] LABS: BUN/Creatinine Ratio 10.2 (8-20); Calcium 9.9 mg/dL (8.6-10.3); EGFR African American 76.6 (>60); EGFR Non-African American 63.3 (>60); Magnesium 1.9 mg/dL (1.9-2.7); Potassium 3.6 mmol/L (3.5-5.0)
[2018-11-26] MEDS: Ondansetron INJ* 2 MG/ML VIAL IV PRN (08:21)
[2018-11-26] MEDS: Lithium LIQ* 300 MG/5 ML UDC PO SCH ×2 (08:21→21:51)
[2018-11-26] MEDS: Saline NASAL SPRAY 0.65%* BTL BOTH NARES PRN ×2 (08:21→19:50)
[2018-11-26] MEDS: Mometasone/Formoter 100/5 MDI INH SCH ×2 (08:22→19:34)
[2018-11-26] MEDS: Pantoprazole TAB * 40 MG TAB PO SCH (08:22)
[2018-11-26] MEDS: Propranolol TAB* 10 MG PO SCH (08:22)
[2018-11-26] MEDS: Sertraline* 100 MG TAB PO SCH (08:22)
[2018-11-26] MEDS: ROTIGOTINE 2 MG/24 HR TOPICAL SCH (08:22)
[2018-11-26] MEDS: lamoTRIgine TAB(*) 100 MG PO SCH ×2 (08:22→21:52)
[2018-11-26] MEDS: Aspirin EC TAB* 81 MG TAB.EC PO SCH (08:22)
--- NOTE | 2018-11-26 08:38 | PN ---
Subjective Date of Service: 11/26/18 Interval History: Cyndi had some nausea overnight, so NGT was placed back to low intermittent suction. She still feels a little nauseous. Zofran helps. No bowel movement yet. Some abdominal discomfort in her lower abdomen, no pain. Matthew is at the bedside and agrees that she is brighter this morning. They went for a walk last night. She has had some interest in clear liquids. Objective Active Medications: Acetaminophen (Tylenol Adult Liq*) 650 mg PO Q8H PRN PRN Reason: MILD PAIN OR TEMP > 100.4 Aspirin (Aspirin Ec Tab*) 81 mg PO DAILY [facility] Last Admin: 11/26/18 08:22 Dose: 81 mg Bisacodyl (Dulcolax Supp*) 10 mg [place] DAILY PRN PRN Reason: CONSTIPATION Clonazepam (Klonopin Tab(*)) 0.5 mg PO TID [facility] Heparin Sodium (Porcine) (Heparin Vial(*)) 5,000 units SUBCUT Q8H [facility] Last Admin: 11/26/18 06:19 Dose: 5,000 units Sodium Chloride (Ns 0.9% 1000 Ml) 1,000 mls @ 100 mls/hr IV PER RATE [facility] Last Admin: 11/26/18 06:18 Dose: 100 mls/hr Ibuprofen (Motrin Liq Adult*) 600 mg PO TID PRN PRN Reason: MILD PAIN OR TEMP > 100.4 Last Admin: 11/25/18 12:01 Dose: 600 mg Lactobacillus Rhamnosus (Lactobacillus Acidophilus*) 1 tab PO DAILY [facility] Lactulose (Lactulose*) 30 ml PO QID [facility] Last Admin: 11/26/18 08:21 Dose: 30 ml Lamotrigine (Lamictal Tab(*)) 100 mg PO BID [facility] Last Admin: 11/26/18 08:22 Dose: 100 mg [place] Citrate ([place] Liq*) 300 mg PO Q12HR [facility] Last Admin: 11/26/18 08:21 Dose: 300 mg Magnesium Hydroxide (Milk Of Magnesia Liq*) 30 ml PO Q6H PRN PRN Reason: CONSTIPATION Mirtazapine (Remeron Tab*) 15 mg PO BEDTIME [facility] Last Admin: 11/25/18 23:01 Dose: 15 mg Mometasone Furoate/Formoterol Fumar (Dulera 100/5 Mdi*) 2 puff INH BID [facility] Last Admin: 11/26/18 08:22 Dose: 2 puff Ondansetron HCl (Zofran Inj*) 4 mg IV Q4H PRN PRN Reason: NAUSEA Last Admin: 11/26/18 08:21 Dose: 4 mg Pantoprazole Sodium (Protonix Tab*) 40 mg PO DAILY [facility] Last Admin: 11/26/18 08:22 Dose: 40 mg Propranolol HCl (Inderal Tab*) 10 mg PO DAILY [facility] Last Admin: 11/26/18 08:22 Dose: 10 mg Rotigotine (Neupro) 2 each TOPICAL Q24H [facility] Last Admin: 11/26/18 08:22 Dose: 2 each Sertraline HCl (Zoloft*) 100 mg PO DAILY [facility] Last Admin: 11/26/18 08:22 Dose: 100 mg Sodium Chloride (Sodium Chloride 0.65% Nasal [place]*) 1 spray BOTH NARES Q4H PRN PRN Reason: CONGESTION Last Admin: 11/26/18 08:21 Dose: 1 spray Tamsulosin HCl (Flomax Cap*) 0.4 mg PO BEDTIME [facility] Vital Signs - 8 hr 11/26/18 11/26/18 11/26/18 03:21 07:29 08:23 Temperature 99.1 F 97.5 F Pulse Rate 73 67 Respiratory 18 16 16 Rate Blood Pressure 120/67 112/63 (mmHg) O2 Sat by Pulse 93 91 Oximetry Oxygen Devices in Use Now: None Appearance: more alert and interactive this morning, less hypokinetic Eyes: No Scleral Icterus Ears/Nose/Mouth/Throat: - - oral mucosa is moist Neck: NL Appearance and Movements; NL JVP Respiratory: Symmetrical Chest Expansion and Respiratory Effort Cardiovascular: NL Sounds; No Murmurs; No JVD, RRR Abdominal: - - soft, mildly tender in lower abdomen with no guarding or rebound. bowel sounds are present in all quadrants. Lymphatic: No Cervical Adenopathy Extremities: No Edema Skin: No Rash or Ulcers Neurological: - - slight intention tremor, improved from yesterday - Nutrition: Malnutrition Diagnosis/Plan Malnutrition Assessment by Registered Dietitian: Malnutrition Assessment Clinical Characteristics Acute,Severe Malnutrition Assessment: Moderate temporal wasting Criteria Inadequate Oral Intake: Little to no intake x2 wks - Anticipate meeting <50% of needs >5 days Unintentional Wt Loss: 10lb wt loss x2 wks current wt 128lb, UBW 138lb - 7.2% loss x2 wks ( severe) Malnutrition Assessment: GI Related - Recommend continuing bowel meds PRN Interventions as indicated; will monitor GI s/sx for impact on intake. Texture Modifications - Recommend CIVIL ENGINEER HELPER eval as indicated; will monitor tolerance to dietary textures. Nutritional Supplementals/Nourishments - Pt not amenable to nourishments/supplements at this time; will continue to monitor intakes and offer nourishments/supplements as indicated. Malnutrition Assessment: Goals 1) Recommend advancing diet as able 2) Pt will tolerate least restrictive diet textures w/o further difficulty chewing/ swallowing 3) Adequate po intake to replete lean body mass and hydration status 4) Improved fluid/electrolyte balance w/ adequate po intake 5) Improved bowel regularity w/ adequate po intake w/o exacerbation of constipation or development of diarrhea Result Diagrams: 11/26/18 06:40 Assess/Plan/Problems-Billing Assessment: This is a 73 year old woman with history of Parkinson's Disease who was recently admitted for UTI and weakness after missing sinimet, then was transferred to [facility] for rehab. [facility] stay complicated by constipation x 5 days, re-admitted to inpatient on 11/24 for constipation management with an NG tube due to refusal to take PO - Patient Problems (1) Constipation Current Visit: Yes Status: Acute Code(s): K59.00 - CONSTIPATION, UNSPECIFIED SNOMED Code(s): 74624822 Comment: now with some nausea--check KUB now to rule out obstruction NGT in place for lactulose if KUB is negative, will try golytely NGT in intermittent suction due to nausea CT abd/pelvis negative for obstruction encourage ambulation as tolerated -- OOB again today IVF increased yesterday with improvement in calcium continue enemas cause was likely immobility plus hypercalcemia (2) Hyperparathyroidism due to lithium therapy Current Visit: No Status: Acute Code(s): E21.1 - SECONDARY HYPERPARATHYROIDISM, NOT ELSEWHERE CLASSIFIED SNOMED Code(s): 620342376 Comment: Chronic and likely worsened by inactivity Recheck labs today Evaluated by Dr. Mark, who recommended medical management, and sensipar was started with improvement in calcium levels--recheck today Discontinuation of lithium deemed not to be a viable option due to successful mood stabilization Renal function is slightly above baseline Continue NS No parathyroid adenoma noted on US (3) Parkinson disease Current Visit: No Status: Acute Code(s): G20 - PARKINSON'S DISEASE SNOMED Code(s): 54342614 Comment: now on carbidoba/levodopa patch with better response than ODT sinemet With recent admission for decompensated symptoms: from last visit: "the process probably started of her UTI end of September and progressed with poor PO intake, dehydration, worsening hypercalcemia, inability to take PO Sinemet, and PD decompensation." MRI brain was negative for stroke. 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 Continue [place], Lamotrigine, clonazepam, mirtazapine, sertraline . (5) Weakness Current Visit: No Status: Acute Priority: High Code(s): R53.1 - WEAKNESS SNOMED Code(s): 63913270 Comment: her need for STR will need to be reassessed once she has a bowel movement and NGT is out and she is re-evaluated by PT (6) COPD (chronic obstructive pulmonary disease) Current Visit: No Status: Chronic Priority: High Code(s): J44.9 - CHRONIC OBSTRUCTIVE PULMONARY DISEASE, UNSPECIFIED SNOMED Code(s): 94638101 Comment: stable (7) DVT prophylaxis Current Visit: No Status: Acute Priority: Medium Code(s): JVD0893 - SNOMED Code(s): 897735275 Comment: - SQ heparin. (8) Urinary retention Current Visit: Yes Status: Acute Code(s): R33.9 - RETENTION OF URINE, UNSPECIFIED SNOMED Code(s): 369675639
[2018-11-26] MEDS: Lactobacillus Acidophilus* 1 TAB PO SCH (11:04)
[2018-11-26] MEDS: clonazePAM TAB(*) 0.5 MG PO SCH ×3 (11:04→21:51)
[2018-11-26] MEDS ORDERED: PEG 3000 GI LAVAGE* 1 GALLON PO ONE (14:00)
[2018-11-26] MEDS ORDERED: Tamsulosin CAP* 0.4 MG PO SCH (21:00)
[2018-11-26] MEDS: Mirtazapine TAB* 15 MG PO SCH (21:52)
[2018-11-26] MEDS: Terazosin CAP* 1 MG PO SCH (23:18)
[2018-11-27] MEDS: NS 0.9% 1000 ML** 1,000 ML IV SCH (02:12)
[2018-11-27 05:07] LABS: Hematocrit 34 % (35-47); Hemoglobin 11.3 g/dL (12.0-16.0); Mean Corpuscular HGB Conc 34 g/dL (31-36); Mean Corpuscular Hemoglobin 32 pg (27-31); Mean Corpuscular Volume 94 fL (80-97); Mean Platelet Volume 10.6 fL (7.4-10.4); Platelet Count 191 10^3/uL (150-450); Red Blood Count 3.57 10^6 /uL (3.70-4.87); Red Cell Distribution Width 14 % (10-15); White Blood Count 9.2 10^3/uL (3.5-10.8)
[2018-11-27 05:27] LABS: Albumin 3.4 g/dL (3.2-5.2); BUN/Creatinine Ratio 11.1 (8-20); Calcium 9.7 mg/dL (8.6-10.3); EGFR African American 84.3 (>60); EGFR Non-African American 69.7 (>60); Globulin 1.7 g/dL (2-4); Potassium 3.2 mmol/L (3.5-5.0); Total Bilirubin 0.4 mg/dL (0.2-1.0); Total Protein 5.1 g/dL (6.4-8.9)
[2018-11-27] MEDS: Heparin VIAL(*) 5000 UNITS/ML VIAL (FIVE THOUSAND) SUBCUT SCH ×3 (05:49→22:51)
[2018-11-27] MEDS ORDERED: Lactated Ringers 1000 ML Bag* 1,000 ML IV SCH (08:00)
[2018-11-27] MEDS: Saline NASAL SPRAY 0.65%* BTL BOTH NARES PRN (08:03)
[2018-11-27] MEDS: Propranolol TAB* 10 MG PO SCH (08:05)
[2018-11-27] MEDS: clonazePAM TAB(*) 0.5 MG PO SCH ×3 (08:05→22:51)
[2018-11-27] MEDS: Potassium Acid Phosphate TAB* 500 MG PO SCH ×3 (08:05→22:52)
[2018-11-27] MEDS: lamoTRIgine TAB(*) 100 MG PO SCH ×2 (08:05→22:52)
[2018-11-27] MEDS: Pantoprazole TAB * 40 MG TAB PO SCH (08:05)
[2018-11-27] MEDS: Lithium LIQ* 300 MG/5 ML UDC PO SCH ×2 (08:06→22:52)
[2018-11-27] MEDS: Aspirin EC TAB* 81 MG TAB.EC PO SCH (08:06)
[2018-11-27] MEDS: Sertraline* 100 MG TAB PO SCH (08:06)
[2018-11-27] MEDS: Lactobacillus Acidophilus* 1 TAB PO SCH (08:06)
[2018-11-27] MEDS: ROTIGOTINE 2 MG/24 HR TOPICAL SCH (08:09)
[2018-11-27] MEDS: Mometasone/Formoter 100/5 MDI INH SCH ×2 (08:12→19:06)
[2018-11-27] MEDS: Ibuprofen ADULT LIQ* 600 MG/30 ML UDC PO PRN (08:20)
--- NOTE | 2018-11-27 16:47 | PN ---
Subjective Date of Service: 11/27/18 Interval History: Cyndi had a medium sized bowel movement this morning. She is underwhelmed by this success. She admits she maybe feels a little better, but is depressed and wants to go home. Her aide is here with her. She has no pain. She went for a walk. She is interested in advancing her diet. Objective Active Medications: Acetaminophen (Tylenol Adult Liq*) 650 mg PO Q8H PRN PRN Reason: MILD PAIN OR TEMP > 100.4 Aspirin (Aspirin Ec Tab*) 81 mg PO DAILY [facility] Last Admin: 11/27/18 08:06 Dose: 81 mg Bisacodyl (Dulcolax Supp*) 10 mg [place] DAILY PRN PRN Reason: CONSTIPATION Clonazepam (Klonopin Tab(*)) 0.5 mg PO TID [facility] Last Admin: 11/27/18 14:31 Dose: 0.5 mg Heparin Sodium (Porcine) (Heparin Vial(*)) 5,000 units SUBCUT Q8H [facility] Last Admin: 11/27/18 14:30 Dose: 5,000 units Ibuprofen (Motrin Liq Adult*) 600 mg PO TID PRN PRN Reason: MILD PAIN OR TEMP > 100.4 Last Admin: 11/27/18 08:20 Dose: 600 mg Lactobacillus Rhamnosus (Lactobacillus Acidophilus*) 1 tab PO DAILY [facility] Last Admin: 11/27/18 08:06 Dose: 1 tab Lamotrigine (Lamictal Tab(*)) 100 mg PO BID [facility] Last Admin: 11/27/18 08:05 Dose: 100 mg [place] Citrate ([place] Liq*) 300 mg PO Q12HR [facility] Last Admin: 11/27/18 08:06 Dose: 300 mg Magnesium Hydroxide (Milk Of Magnesia Liq*) 30 ml PO Q6H PRN PRN Reason: CONSTIPATION Mirtazapine (Remeron Tab*) 15 mg PO BEDTIME [facility] Last Admin: 11/26/18 21:52 Dose: 15 mg Mometasone Furoate/Formoterol Fumar (Dulera 100/5 Mdi*) 2 puff INH BID [facility] Last Admin: 11/27/18 08:12 Dose: 2 puff Ondansetron HCl (Zofran Inj*) 4 mg IV Q4H PRN PRN Reason: NAUSEA Last Admin: 11/26/18 08:21 Dose: 4 mg Pantoprazole Sodium (Protonix Tab*) 40 mg PO DAILY [facility] Last Admin: 11/27/18 08:05 Dose: 40 mg Potassium Phosphate (K Phos Original Tab*) 500 mg PO TID [facility] Last Admin: 11/27/18 14:30 Dose: 500 mg Propranolol HCl (Inderal Tab*) 10 mg PO DAILY [facility] Last Admin: 11/27/18 08:05 Dose: 10 mg Rotigotine (Neupro) 2 each TOPICAL Q24H [facility] Last Admin: 11/27/18 08:09 Dose: 2 each Sertraline HCl (Zoloft*) 100 mg PO DAILY [facility] Last Admin: 11/27/18 08:06 Dose: 100 mg Sodium Chloride (Sodium Chloride 0.65% Nasal [place]*) 1 spray BOTH NARES Q4H PRN PRN Reason: CONGESTION Last Admin: 11/27/18 08:03 Dose: 1 spray Terazosin HCl (Hytrin Cap*) 1 mg PO BEDTIME [facility] Last Admin: 11/26/18 23:18 Dose: 1 mg Vital Signs - 8 hr 11/27/18 11/27/18 11/27/18 11:00 11:37 14:31 Temperature 98.6 F Pulse Rate 50 Respiratory 16 16 14 Rate Blood Pressure 129/67 (mmHg) O2 Sat by Pulse 97 Oximetry 11/27/18 11/27/18 11/27/18 15:49 16:16 16:27 Temperature 97.8 F 97.1 F Pulse Rate 56 58 Respiratory 16 18 16 Rate Blood Pressure 149/76 163/81 (mmHg) O2 Sat by Pulse 97 98 Oximetry Oxygen Devices in Use Now: None Appearance: alert, sitting up in the chair, nontoxic appearing Eyes: No Scleral Icterus Ears/Nose/Mouth/Throat: NL Teeth, Lips, Gums, - - NGT in place Neck: NL Appearance and Movements; NL JVP Respiratory: Symmetrical Chest Expansion and Respiratory Effort Cardiovascular: NL Sounds; No Murmurs; No JVD Abdominal: - - espinoza in place, bowel sounds in all quadrants, soft nontender abdomen Extremities: No Edema Skin: No Rash or Ulcers Neurological: - - hypokinetic but improved - Nutrition: Malnutrition Diagnosis/Plan Malnutrition Assessment by Registered Dietitian: Malnutrition Assessment Clinical Characteristics Acute,Severe Malnutrition Assessment: Moderate temporal wasting Criteria Inadequate Oral Intake: Little to no intake x2 wks - Anticipate meeting <50% of needs >5 days Unintentional Wt Loss: 10lb wt loss x2 wks current wt 128lb, UBW 138lb - 7.2% loss x2 wks ( severe) Malnutrition Assessment: GI Related - Recommend continuing bowel meds PRN Interventions as indicated; will monitor GI s/sx for impact on intake. Texture Modifications - Recommend MUSIC MANAGER eval as indicated; will monitor tolerance to dietary textures. Nutritional Supplementals/Nourishments - Pt not amenable to nourishments/supplements at this time; will continue to monitor intakes and offer nourishments/supplements as indicated. Malnutrition Assessment: Goals 1) Recommend advancing diet as able 2) Pt will tolerate least restrictive diet textures w/o further difficulty chewing/ swallowing 3) Adequate po intake to replete lean body mass and hydration status 4) Improved fluid/electrolyte balance w/ adequate po intake 5) Improved bowel regularity w/ adequate po intake w/o exacerbation of constipation or development of diarrhea Result Diagrams: 11/27/18 04:53 11/27/18 04:53 Assess/Plan/Problems-Billing Assessment: This is a 73 year old woman with history of Parkinson's Disease who was recently admitted for UTI and weakness after missing sinimet, then was transferred to [email or web address]. [email or web address] stay complicated by constipation x 5 days, re-admitted to inpatient on 11/24 for constipation management with an NG tube due to refusal to take PO - Patient Problems (1) Constipation Current Visit: Yes Status: Acute Code(s): K59.00 - CONSTIPATION, UNSPECIFIED SNOMED Code(s): [id number] Comment: resolved with golytely encourage ambulation as tolerated cause was likely immobility plus hypercalcemia encourage PO intake; will dc IVF today to see how she responds without IVF (2) Hyperparathyroidism due to lithium therapy Current Visit: No Status: Acute Code(s): E21.1 - SECONDARY HYPERPARATHYROIDISM, NOT ELSEWHERE CLASSIFIED SNOMED Code(s): 718819599 Comment: Chronic and likely worsened by inactivity Ca++ normal yesterday and today after IVF Evaluated by Dr. Mark, who recommended medical management, and sensipar was started with improvement in calcium levels--recheck today Discontinuation of lithium deemed not to be a viable option due to successful mood stabilization Renal function is slightly above baseline DC IVF to see what calcium is tomorrow off IVF No parathyroid adenoma noted on US (3) Parkinson disease Current Visit: No Status: Acute Code(s): G20 - PARKINSON'S DISEASE SNOMED Code(s): 65741304 Comment: now on carbidoba/levodopa patch with better response than ODT sinemet With recent admission for decompensated symptoms: from last visit: "the process probably started of her UTI end of September and progressed with poor PO intake, dehydration, worsening hypercalcemia, inability to take PO Sinemet, and PD decompensation." MRI brain was negative for stroke. (4) Bipolar disorder Current Visit: No Status: Chronic Priority: High Comment: Complex, snf Psych follow up with Dr . Continue [place], Lamotrigine, clonazepam, mirtazapine, sertraline . (5) Weakness Current Visit: No Status: Acute Priority: High Code(s): R53.1 - WEAKNESS SNOMED Code(s): 11118485 Comment: her need for STR will need to be reassessed once she has a bowel movement and NGT is out and she is re-evaluated by PT (6) COPD (chronic obstructive pulmonary disease) Current Visit: No Status: Chronic Priority: High Code(s): J44.9 - CHRONIC OBSTRUCTIVE PULMONARY DISEASE, UNSPECIFIED SNOMED Code(s): 65665580 Comment: stable (7) DVT prophylaxis Current Visit: No Status: Acute Priority: Medium Code(s): [id number] - SNOMED Code(s): 627526715 Comment: - SQ heparin. (8) Urinary retention Current Visit: Yes Status: Acute Code(s): R33.9 - RETENTION OF URINE, UNSPECIFIED SNOMED Code(s): 420186091 Comment: with espinoza Status and Disposition: discussion started today about dispo planning. advance diet today. DC IVF. recheck labs tomorrow. will need NGT out when tolerating PO. plan for STR when stable, case management aware.
[2018-11-27] MEDS: Mirtazapine TAB* 15 MG PO SCH (22:53)
[2018-11-27] MEDS: Ondansetron INJ* 2 MG/ML VIAL IV PRN (23:15)
[2018-11-27] MEDS: Terazosin CAP* 1 MG PO SCH (23:16)
[2018-11-28] MEDS: Heparin VIAL(*) 5000 UNITS/ML VIAL (FIVE THOUSAND) SUBCUT SCH ×3 (06:09→20:42)
[2018-11-28 06:45] LABS: BUN/Creatinine Ratio 11.3 (8-20); Calcium 9.3 mg/dL (8.6-10.3); EGFR African American 98.2 (>60); EGFR Non-African American 81.2 (>60)
[2018-11-28] MEDS ORDERED: Potassium Phosphate IV* 5 MMOLE in NS 0.9% 250 ML* 250 ML IVPB ONE (08:15)
[2018-11-28] MEDS: Potassium Acid Phosphate TAB* 500 MG PO SCH (08:37)
[2018-11-28] MEDS: Lithium LIQ* 300 MG/5 ML UDC PO SCH ×2 (08:37→20:41)
[2018-11-28] MEDS: Sertraline* 100 MG TAB PO SCH (08:37)
[2018-11-28] MEDS: clonazePAM TAB(*) 0.5 MG PO SCH ×3 (08:37→20:41)
[2018-11-28] MEDS: Propranolol TAB* 10 MG PO SCH (08:37)
[2018-11-28] MEDS: lamoTRIgine TAB(*) 100 MG PO SCH ×2 (08:37→20:41)
[2018-11-28] MEDS: Polyethylene Glycol 3350* 17 GM PACKET PO SCH ×2 (08:37→20:23)
[2018-11-28] MEDS: ROTIGOTINE 2 MG/24 HR TOPICAL SCH (08:38)
[2018-11-28] MEDS ORDERED: Potassium & Sodium Phos 250MG* = 1 PACKET PO SCH ×2 (09:00→21:00)
[2018-11-28] MEDS: Pantoprazole TAB * 40 MG TAB PO SCH (09:29)
[2018-11-28] MEDS: Lactobacillus Acidophilus* 1 TAB PO SCH (09:29)
[2018-11-28] MEDS: Mometasone/Formoter 100/5 MDI INH SCH ×2 (09:33→19:54)
--- NOTE | 2018-11-28 12:19 | PN ---
Subjective Date of Service: 11/28/18 Interval History: Cyndi is feeling a little better today. She has had several bowel movements and ate a piece of orellana pie for breakfast. She has no complaints this morning other than having no motivation to get out of bed. Her and health aide are here today and agree she is getting better. Objective Active Medications: Acetaminophen (Tylenol Adult Liq*) 650 mg PO Q8H PRN PRN Reason: MILD PAIN OR TEMP > 100.4 Bisacodyl (Dulcolax Supp*) 10 mg DE DAILY PRN PRN Reason: CONSTIPATION Clonazepam (Klonopin Tab(*)) 0.5 mg PO TID [facility] Last Admin: 11/28/18 08:37 Dose: 0.5 mg Heparin Sodium (Porcine) (Heparin Vial(*)) 5,000 units SUBCUT Q8H [facility] Last Admin: 11/28/18 06:09 Dose: 5,000 units Potassium Phosphate 5 mmole/ (Sodium Chloride) 251.6667 mls @ 42 mls/hr IVPB ONCE ONE Stop: 11/28/18 14:14 Ibuprofen (Motrin Liq Adult*) 600 mg PO TID PRN PRN Reason: MILD PAIN OR TEMP > 100.4 Last Admin: 11/27/18 08:20 Dose: 600 mg Lactobacillus Rhamnosus (Lactobacillus Acidophilus*) 1 tab PO DAILY [facility] Last Admin: 11/28/18 09:29 Dose: Not Given Lamotrigine (Lamictal Tab(*)) 100 mg PO BID [facility] Last Admin: 11/28/18 08:37 Dose: 100 mg [place] Citrate ([place] Liq*) 300 mg PO Q12HR [facility] Last Admin: 11/28/18 08:37 Dose: 300 mg Magnesium Hydroxide (Milk Of Magnesia Liq*) 30 ml PO Q6H PRN PRN Reason: CONSTIPATION Mirtazapine (Remeron Tab*) 15 mg PO BEDTIME [facility] Last Admin: 11/27/18 22:53 Dose: 15 mg Mometasone Furoate/Formoterol Fumar (Dulera 100/5 Mdi*) 2 puff INH BID [facility] Last Admin: 11/28/18 09:33 Dose: 2 puff Ondansetron HCl (Zofran Inj*) 4 mg IV Q4H PRN PRN Reason: NAUSEA Last Admin: 11/27/18 23:15 Dose: 4 mg Pantoprazole Sodium (Protonix Tab*) 40 mg PO DAILY [facility] Last Admin: 11/28/18 09:29 Dose: Not Given Polyethylene Glycol/Electrolytes (Miralax*) 17 gm PO 0800,2100 [facility] Last Admin: 11/28/18 08:37 Dose: 17 gm Potassium Phos/Sodium Phos (Neutra Phos 250 Mg William*) 250 mg PO BID [facility] Propranolol HCl (Inderal Tab*) 10 mg PO DAILY [facility] Last Admin: 11/28/18 08:37 Dose: 10 mg Rotigotine (Neupro) 2 each TOPICAL Q24H [facility] Last Admin: 11/28/18 08:38 Dose: 2 each Sertraline HCl (Zoloft*) 100 mg PO DAILY [facility] Last Admin: 11/28/18 08:37 Dose: 100 mg Sodium Chloride (Sodium Chloride 0.65% Nasal [place]*) 1 spray BOTH NARES Q4H PRN PRN Reason: CONGESTION Last Admin: 11/27/18 08:03 Dose: 1 spray Terazosin HCl (Hytrin Cap*) 1 mg PO BEDTIME [facility] Last Admin: 11/27/18 23:16 Dose: 1 mg Vital Signs - 8 hr 11/28/18 11/28/18 11/28/18 07:08 08:37 09:35 Temperature 98.4 F Pulse Rate 68 62 Respiratory 20 16 15 Rate Blood Pressure 136/71 (mmHg) O2 Sat by Pulse 97 96 Oximetry Oxygen Devices in Use Now: Nasal Cannula Appearance: alert, hypokinetic but improved energy Eyes: No Scleral Icterus Ears/Nose/Mouth/Throat: - - NGT in place Neck: NL Appearance and Movements; NL JVP Respiratory: Symmetrical Chest Expansion and Respiratory Effort, Clear to Auscultation Cardiovascular: NL Sounds; No Murmurs; No JVD, RRR Abdominal: NL Sounds; No Tenderness; No Distention, - - mild tenderness to deep palpation in low abdomen. espinoza in place Extremities: No Edema Skin: No Rash or Ulcers - Nutrition: Malnutrition Diagnosis/Plan Malnutrition Assessment by Registered Dietitian: Malnutrition Assessment Clinical Characteristics Acute,Severe Malnutrition Assessment: Moderate temporal wasting Criteria Inadequate Oral Intake: Little to no intake x2 wks - Anticipate meeting <50% of needs >5 days Unintentional Wt Loss: 10lb wt loss x2 wks current wt 128lb, UBW 138lb - 7.2% loss x2 wks ( severe) Malnutrition Assessment: GI Related - Recommend continuing bowel meds PRN Interventions as indicated; will monitor GI s/sx for impact on intake. 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 Nutritional Supplementals/Nourishments - Pt not amenable to nourishments/supplements at this time; will continue to monitor intakes and offer nourishments/supplements as indicated. Malnutrition Assessment: Goals 1) Recommend advancing diet as able 2) Pt will tolerate least restrictive diet textures w/o further difficulty chewing/ swallowing 3) Adequate po intake to replete lean body mass and hydration status 4) Improved fluid/electrolyte balance w/ adequate po intake 5) Improved bowel regularity w/ adequate po intake w/o exacerbation of constipation or development of diarrhea Result Diagrams: 11/27/18 04:53 11/28/18 05:44 Assess/Plan/Problems-Billing Assessment: This is a 73 year old woman with history of Parkinson's Disease who was recently admitted for UTI and weakness after missing sinimet, then was transferred to [facility] for rehab. [facility] stay complicated by constipation x 5 days, re-admitted to inpatient on 11/24 for constipation management with an NG tube due to refusal to take PO - Patient Problems (1) Constipation Current Visit: Yes Status: Acute Code(s): K59.00 - CONSTIPATION, UNSPECIFIED SNOMED Code(s): 33859830 Comment: resolved with golytely encourage ambulation as tolerated cause was likely immobility plus hypercalcemia encourage PO intake (2) Hyperparathyroidism due to lithium therapy Current Visit: No Status: Acute Code(s): E21.1 - SECONDARY HYPERPARATHYROIDISM, NOT ELSEWHERE CLASSIFIED SNOMED Code(s): 202322253 Comment: Chronic and likely worsened by inactivity Ca++ has been normal x 3 days; now again today even after discontinuing her IVF Evaluated by Dr. Mark, who recommended medical management, and sensipar was started with improvement in calcium levels--recheck today Discontinuation of lithium deemed not to be a viable option due to successful mood stabilization No parathyroid adenoma noted on US (3) Parkinson disease Current Visit: No Status: Acute Code(s): G20 - PARKINSON'S DISEASE SNOMED Code(s): 72010573 Comment: now on carbidoba/levodopa patch with better response than ODT sinemet With recent admission for decompensated symptoms: from last visit: "the process probably started of her UTI end of September and progressed with poor PO intake, dehydration, worsening hypercalcemia, inability to take PO Sinemet, and PD decompensation." MRI brain was negative for stroke. (4) Bipolar disorder Current Visit: No Status: Chronic Priority: High Comment: Complex, intermediate Psych follow up with Dr . Continue [place], Lamotrigine, clonazepam, mirtazapine, sertraline . (5) Weakness Current Visit: No Status: Acute Priority: High Code(s): R53.1 - WEAKNESS SNOMED Code(s): 55795596 Comment: her need for STR will need to be reassessed today. she declined working with PT yesterday so I requested a re-eval today (6) COPD (chronic obstructive pulmonary disease) Current Visit: No Status: Chronic Priority: High Code(s): J44.9 - CHRONIC OBSTRUCTIVE PULMONARY DISEASE, UNSPECIFIED SNOMED Code(s): 17631963 Comment: stable (7) Hypokalemia Current Visit: Yes Status: Acute Code(s): E87.6 - HYPOKALEMIA SNOMED Code( s): 63570183 Comment: likely related to poor po intake also with hypophosphatemia caution for refeeding syndrome will trend (8) Urinary retention Current Visit: Yes Status: Acute Code(s): R33.9 - RETENTION OF URINE, UNSPECIFIED SNOMED Code(s): 293803316 Comment: with espinoza plan to keep espinoza per Dr. Abbott (9) DVT prophylaxis Current Visit: No Status: Acute Priority: Medium Code(s): GQH1701 - SNOMED Code(s): 243461484 Comment: - SQ heparin. Status and Disposition: discussion started yesterday about dispo planning. continue to advance diet. DC NGT if okay after lunch today. plan for STR this week, case management aware.
[2018-11-28 14:47] LABS: BUN/Creatinine Ratio 10.5 (8-20); Calcium 9.5 mg/dL (8.6-10.3); EGFR African American 90.8 (>60); Phosphorus 1.8 mg/dL (2.5-5.0); Potassium 3.4 mmol/L (3.5-5.0)
[2018-11-28] MEDS: Mirtazapine TAB* 15 MG PO SCH (20:41)
[2018-11-28] MEDS: Terazosin CAP* 1 MG PO SCH (20:41)
[2018-11-29 06:28] LABS: Calcium 9.2 mg/dL (8.6-10.3); EGFR Non-African American 86.8 (>60); Magnesium 1.8 mg/dL (1.9-2.7)
[2018-11-29] MEDS ORDERED: Tiotropium CAPSULE (NF) 1 CAP/18 MCG CAP.INH INH ONE (07:15)
[2018-11-29] MEDS: Heparin VIAL(*) 5000 UNITS/ML VIAL (FIVE THOUSAND) SUBCUT SCH ×3 (07:33→21:52)
[2018-11-29] MEDS: Mometasone/Formoter 100/5 MDI INH SCH ×2 (07:52→19:59)
--- NOTE | 2018-11-29 08:21 | PN ---
Subjective Date of Service: 11/29/18 Interval History: Cyndi was unable to work with PT yesterday--note says she was unavailable. She feels a little better this morning, has been drinking lots of water. Wants some chocolate milk today. No pain, no nausea, no dysphagia/odynophagia. Objective Active Medications: Acetaminophen (Tylenol Adult Liq*) 650 mg PO Q8H PRN PRN Reason: MILD PAIN OR TEMP > 100.4 Bisacodyl (Dulcolax Supp*) 10 mg [place] DAILY PRN PRN Reason: CONSTIPATION Clonazepam (Klonopin Tab(*)) 0.5 mg PO TID [facility] Last Admin: 11/28/18 20:41 Dose: 0.5 mg Heparin Sodium (Porcine) (Heparin Vial(*)) 5,000 units SUBCUT Q8H [facility] Last Admin: 11/29/18 07:33 Dose: 5,000 units Ibuprofen (Motrin Liq Adult*) 600 mg PO TID PRN PRN Reason: MILD PAIN OR TEMP > 100.4 Last Admin: 11/27/18 08:20 Dose: 600 mg Lactobacillus Rhamnosus (Lactobacillus Acidophilus*) 1 tab PO DAILY [facility] Last Admin: 11/28/18 09:29 Dose: Not Given Lamotrigine (Lamictal Tab(*)) 100 mg PO BID [facility] Last Admin: 11/28/18 20:41 Dose: 100 mg [place] Citrate ([place] Liq*) 300 mg PO Q12HR [facility] Last Admin: 11/28/18 20:41 Dose: 300 mg Magnesium Hydroxide (Milk Of Magnesia Liq*) 30 ml PO Q6H PRN PRN Reason: CONSTIPATION Mirtazapine (Remeron Tab*) 15 mg PO BEDTIME [facility] Last Admin: 11/28/18 20:41 Dose: 15 mg Mometasone Furoate/Formoterol Fumar (Dulera 100/5 Mdi*) 2 puff INH BID [facility] Last Admin: 11/29/18 07:52 Dose: 2 puff Ondansetron HCl (Zofran Inj*) 4 mg IV Q4H PRN PRN Reason: NAUSEA Last Admin: 11/27/18 23:15 Dose: 4 mg Pantoprazole Sodium (Protonix Tab*) 40 mg PO DAILY [facility] Last Admin: 11/28/18 09:29 Dose: Not Given Polyethylene Glycol/Electrolytes (Miralax*) 17 gm PO 0800,2100 [facility] Last Admin: 11/28/18 20:23 Dose: Not Given Potassium Chloride (Potassium Chloride Liquid) 40 meq PO BID [facility] Potassium Phos/Sodium Phos (Neutra Phos 250 Mg William*) 250 mg PO TID [facility] Propranolol HCl (Inderal Tab*) 10 mg PO DAILY [facility] Last Admin: 11/28/18 08:37 Dose: 10 mg Rotigotine (Neupro) 2 each TOPICAL Q24H [facility] Last Admin: 11/28/18 08:38 Dose: 2 each Sertraline HCl (Zoloft*) 100 mg PO DAILY [facility] Last Admin: 11/28/18 08:37 Dose: 100 mg Sodium Chloride (Sodium Chloride 0.65% Nasal [place]*) 1 spray BOTH NARES Q4H PRN PRN Reason: CONGESTION Last Admin: 11/27/18 08:03 Dose: 1 spray Terazosin HCl (Hytrin Cap*) 1 mg PO BEDTIME [facility] Last Admin: 11/28/18 20:41 Dose: 1 mg Vital Signs - 8 hr 11/29/18 11/29/18 03:15 07:54 Temperature 97.9 F Pulse Rate 64 63 Respiratory 16 15 Rate Blood Pressure 150/73 (mmHg) O2 Sat by Pulse 91 92 Oximetry Oxygen Devices in Use Now: None Appearance: alert, well appearing, hypokinetic Eyes: No Scleral Icterus Ears/Nose/Mouth/Throat: NL Teeth, Lips, Gums Neck: NL Appearance and Movements; NL JVP Respiratory: Symmetrical Chest Expansion and Respiratory Effort Cardiovascular: NL Sounds; No Murmurs; No JVD Abdominal: NL Sounds; No Tenderness; No Distention Extremities: No Edema - Nutrition: Malnutrition Diagnosis/Plan Malnutrition Assessment by Registered Dietitian: Malnutrition Assessment Clinical Characteristics Acute,Severe Malnutrition Assessment: Moderate temporal wasting Criteria Inadequate Oral Intake: Little to no intake x2 wks - Anticipate meeting <50% of needs >5 days Unintentional Wt Loss: 10lb wt loss x2 wks current wt 128lb, UBW 138lb - 7.2% loss x2 wks ( severe) Malnutrition Assessment: GI Related - Recommend continuing bowel meds PRN Interventions as indicated; will monitor GI s/sx for impact on intake. 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 Nutritional Supplementals/Nourishments - Pt not amenable to nourishments/supplements at this time; will continue to monitor intakes and offer nourishments/supplements as indicated. Malnutrition Assessment: Goals 1) Recommend advancing diet as able 2) Pt will tolerate least restrictive diet textures w/o further difficulty chewing/ swallowing 3) Adequate po intake to replete lean body mass and hydration status 4) Improved fluid/electrolyte balance w/ adequate po intake 5) Improved bowel regularity w/ adequate po intake w/o exacerbation of constipation or development of diarrhea Result Diagrams: 11/27/18 04:53 11/29/18 05:36 Assess/Plan/Problems-Billing Assessment: This is a 73 year old woman with history of Parkinson's Disease who was recently admitted for UTI and weakness after missing sinimet, then was transferred to [facility] for re[facility]. [facility] stay complicated by constipation x 5 days, re-admitted to inpatient on 11/24 for constipation management with an NG tube due to refusal to take PO - Patient Problems (1) Constipation Current Visit: Yes Status: Acute Code(s): K59.00 - CONSTIPATION, UNSPECIFIED SNOMED Code(s): 11175588 Comment: resolved with golytely encourage ambulation as tolerated cause was likely immobility plus hypercalcemia encourage PO intake (2) Hyperparathyroidism due to lithium therapy Current Visit: No Status: Acute Code(s): E21.1 - SECONDARY HYPERPARATHYROIDISM, NOT ELSEWHERE CLASSIFIED SNOMED Code(s): 888602535 Comment: Chronic and likely worsened by inactivity Ca++ has been normal even with IVF; continue po fluid Evaluated by Dr. Mark, who recommended medical management, and sensipar was started with improvement in calcium levels--recheck today Discontinuation of lithium deemed not to be a viable option due to successful mood stabilization No parathyroid adenoma noted on US (3) Parkinson disease Current Visit: No Status: Acute Code(s): G20 - PARKINSON'S DISEASE SNOMED Code(s): 11134062 Comment: now on carbidoba/levodopa patch with better response than ODT sinemet With recent admission for decompensated symptoms: from last visit: "the process probably started of her UTI end of September and progressed with poor PO intake, dehydration, worsening hypercalcemia, inability to take PO Sinemet, and PD decompensation." MRI brain was negative for stroke. 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 Continue [place], Lamotrigine, clonazepam, mirtazapine, sertraline . (5) Weakness Current Visit: No Status: Acute Priority: High Code(s): R53.1 - WEAKNESS SNOMED Code(s): 96080357 Comment: PT re-eval today she and Matthew would prefer that she goes home instead of STR; will see if this is an option (6) COPD (chronic obstructive pulmonary disease) Current Visit: No Status: Chronic Priority: High Code(s): J44.9 - CHRONIC OBSTRUCTIVE PULMONARY DISEASE, UNSPECIFIED SNOMED Code(s): 40840083 Comment: stable (7) Hypokalemia Current Visit: Yes Status: Acute Code(s): E87.6 - HYPOKALEMIA SNOMED Code( s): 50779178 Comment: likely related to poor po intake also with hypophosphatemia caution for refeeding syndrome will trend (8) Urinary retention Current Visit: Yes Status: Acute Code(s): R33.9 - RETENTION OF URINE, UNSPECIFIED SNOMED Code(s): 141206944 Comment: with espinoza plan to keep espinoza per Dr. Abbott (9) DVT prophylaxis Current Visit: No Status: Acute Priority: Medium Code(s): PSN1999 - SNOMED Code(s): 047672671 Comment: - SQ heparin. Status and Disposition: discussion started yesterday about dispo planning. OOB today, PT/OT dispo planning, maybe home?
[2018-11-29] MEDS: Polyethylene Glycol 3350* 17 GM PACKET PO SCH ×2 (08:46→20:49)
[2018-11-29] MEDS: clonazePAM TAB(*) 0.5 MG PO SCH ×3 (08:49→20:47)
[2018-11-29] MEDS: Lactobacillus Acidophilus* 1 TAB PO SCH (08:50)
[2018-11-29] MEDS: lamoTRIgine TAB(*) 100 MG PO SCH ×2 (08:50→20:47)
[2018-11-29] MEDS: Sertraline* 100 MG TAB PO SCH (08:50)
[2018-11-29] MEDS: Propranolol TAB* 10 MG PO SCH (08:50)
[2018-11-29] MEDS: Pantoprazole TAB * 40 MG TAB PO SCH (08:50)
[2018-11-29] MEDS: ROTIGOTINE 2 MG/24 HR TOPICAL SCH (08:51)
[2018-11-29] MEDS: Lithium LIQ* 300 MG/5 ML UDC PO SCH ×2 (08:52→20:49)
[2018-11-29] MEDS: Potassium Chloride* LIQUID 20 MEQ/15 ML UDC PO SCH ×2 (08:53→20:48)
[2018-11-29] MEDS: Potassium & Sodium Phos 250MG* = 1 PACKET PO SCH ×3 (08:56→20:48)
[2018-11-29] MEDS: Ibuprofen ADULT LIQ* 600 MG/30 ML UDC PO PRN (10:57)
[2018-11-29] MEDS: Ondansetron INJ* 2 MG/ML VIAL IV PRN ×2 (11:09→19:49)
[2018-11-29] MEDS ORDERED: Acetaminophen IV 1GM/100ML * 100 ML IVPB ONE (11:16)
[2018-11-29] MEDS: Terazosin CAP* 1 MG PO SCH (20:47)
[2018-11-29] MEDS: Mirtazapine TAB* 15 MG PO SCH (20:47)
[2018-11-30] MEDS: Heparin VIAL(*) 5000 UNITS/ML VIAL (FIVE THOUSAND) SUBCUT SCH ×3 (06:06→23:00)
[2018-11-30] MEDS: Potassium Chloride* LIQUID 20 MEQ/15 ML UDC PO SCH ×2 (07:39→22:34)
[2018-11-30] MEDS: Lithium LIQ* 300 MG/5 ML UDC PO SCH ×2 (07:39→22:34)
[2018-11-30] MEDS: Sertraline* 100 MG TAB PO SCH (07:40)
[2018-11-30] MEDS: Potassium & Sodium Phos 250MG* = 1 PACKET PO SCH ×3 (07:40→22:48)
[2018-11-30] MEDS: clonazePAM TAB(*) 0.5 MG PO SCH ×3 (07:40→22:35)
[2018-11-30] MEDS: lamoTRIgine TAB(*) 100 MG PO SCH ×2 (07:40→22:35)
[2018-11-30] MEDS: Lactobacillus Acidophilus* 1 TAB PO SCH (07:40)
[2018-11-30] MEDS: Propranolol TAB* 10 MG PO SCH (07:40)
[2018-11-30] MEDS: Pantoprazole TAB * 40 MG TAB PO SCH (07:40)
[2018-11-30] MEDS: Mometasone/Formoter 100/5 MDI INH SCH ×2 (07:57→19:13)
[2018-11-30] MEDS: Polyethylene Glycol 3350* 17 GM PACKET PO SCH ×2 (08:17→22:47)
--- NOTE | 2018-11-30 08:58 | PN ---
Subjective Date of Service: 11/30/18 Interval History: Cyndi wouldn't work with PT yesterday. She feels okay today; ate an egg salad sandwich yesterday and loved it. Objective Active Medications: Acetaminophen (Tylenol Adult Liq*) 650 mg PO Q8H PRN PRN Reason: MILD PAIN OR TEMP > 100.4 Last Admin: 11/30/18 08:18 Dose: 650 mg Bisacodyl (Dulcolax Supp*) 10 mg DC DAILY PRN PRN Reason: CONSTIPATION Carbidopa/Levodopa (Sinemet 25/100 Tab(*)) 3 tab PO 0830,1300,1830 [facility] Clonazepam (Klonopin Tab(*)) 0.5 mg PO TID [facility] Last Admin: 11/30/18 07:40 Dose: 0.5 mg Heparin Sodium (Porcine) (Heparin Vial(*)) 5,000 units SUBCUT Q8H [facility] Last Admin: 11/30/18 06:06 Dose: 5,000 units Ibuprofen (Motrin Liq Adult*) 600 mg PO TID PRN PRN Reason: MILD PAIN OR TEMP > 100.4 Last Admin: 11/29/18 10:57 Dose: 600 mg Lactobacillus Rhamnosus (Lactobacillus Acidophilus*) 1 tab PO DAILY [facility] Last Admin: 11/30/18 07:40 Dose: 1 tab Lamotrigine (Lamictal Tab(*)) 100 mg PO BID [facility] Last Admin: 11/30/18 07:40 Dose: 100 mg [place] Citrate ([place] Liq*) 300 mg PO Q12HR [facility] Last Admin: 11/30/18 07:39 Dose: 300 mg Magnesium Hydroxide (Milk Of Magnesia Liq*) 30 ml PO Q6H PRN PRN Reason: CONSTIPATION Mirtazapine (Remeron Tab*) 15 mg PO BEDTIME [facility] Last Admin: 11/29/18 20:47 Dose: 15 mg Mometasone Furoate/Formoterol Fumar (Dulera 100/5 Mdi*) 2 puff INH BID [facility] Last Admin: 11/30/18 07:57 Dose: 2 puff Ondansetron HCl (Zofran Inj*) 4 mg IV Q4H PRN PRN Reason: NAUSEA Last Admin: 11/29/18 19:49 Dose: 4 mg Pantoprazole Sodium (Protonix Tab*) 40 mg PO DAILY [facility] Last Admin: 11/30/18 07:40 Dose: 40 mg Polyethylene Glycol/Electrolytes (Miralax*) 17 gm PO 0800,2100 [facility] Last Admin: 11/30/18 08:17 Dose: Not Given Potassium Chloride (Potassium Chloride Liquid) 40 meq PO BID [facility] Last Admin: 11/30/18 07:39 Dose: 40 meq Potassium Phos/Sodium Phos (Neutra Phos 250 Mg [place]*) 250 mg PO TID [facility] Last Admin: 11/30/18 07:40 Dose: 250 mg Propranolol HCl (Inderal Tab*) 10 mg PO DAILY [facility] Last Admin: 11/30/18 07:40 Dose: 10 mg Sertraline HCl (Zoloft*) 100 mg PO DAILY [facility] Last Admin: 11/30/18 07:40 Dose: 100 mg Sodium Chloride (Sodium Chloride 0.65% Nasal [place]*) 1 spray BOTH NARES Q4H PRN PRN Reason: CONGESTION Last Admin: 11/27/18 08:03 Dose: 1 spray Terazosin HCl (Hytrin Cap*) 1 mg PO BEDTIME [facility] Last Admin: 11/29/18 20:47 Dose: 1 mg Vital Signs - 8 hr 11/30/18 11/30/18 11/30/18 03:13 07:40 07:59 Temperature 97.3 F Pulse Rate 74 92 Respiratory 18 16 18 Rate Blood Pressure 109/63 (mmHg) O2 Sat by Pulse 91 96 Oximetry Oxygen Devices in Use Now: None Appearance: alert, nontoxic, hypokinetic Eyes: No Scleral Icterus Ears/Nose/Mouth/Throat: NL Teeth, Lips, Gums Neck: NL Appearance and Movements; NL JVP Respiratory: Symmetrical Chest Expansion and Respiratory Effort Cardiovascular: NL Sounds; No Murmurs; No JVD Abdominal: NL Sounds; No Tenderness; No Distention Lymphatic: No Cervical Adenopathy Extremities: No Edema Skin: No Rash or Ulcers - Nutrition: Malnutrition Diagnosis/Plan Malnutrition Assessment by Registered Dietitian: Malnutrition Assessment Clinical Characteristics Acute,Severe Malnutrition Assessment: Moderate temporal wasting Criteria Inadequate Oral Intake: Little to no intake x2 wks - Anticipate meeting <50% of needs >5 days Unintentional Wt Loss: 10lb wt loss x2 wks current wt 128lb, UBW 138lb - 7.2% loss x2 wks ( severe) Malnutrition Assessment: GI Related - Recommend continuing bowel meds PRN Interventions as indicated; will monitor GI s/sx for impact on intake. 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 Nutritional Supplementals/Nourishments - Pt not amenable to nourishments/supplements at this time; will continue to monitor intakes and offer nourishments/supplements as indicated. Malnutrition Assessment: Goals 1) Recommend advancing diet as able 2) Pt will tolerate least restrictive diet textures w/o further difficulty chewing/ swallowing 3) Adequate po intake to replete lean body mass and hydration status 4) Improved fluid/electrolyte balance w/ adequate po intake 5) Improved bowel regularity w/ adequate po intake w/o exacerbation of constipation or development of diarrhea Result Diagrams: 11/27/18 04:53 11/29/18 05:36 Assess/Plan/Problems-Billing Assessment: This is a 73 year old woman with history of Parkinson's Disease who was recently admitted for UTI and weakness after missing sinimet, then was transferred to [facility] for rehab. [facility] stay complicated by constipation x 5 days, re-admitted to inpatient on 11/24 for constipation management with an NG tube due to refusal to take PO - Patient Problems (1) Constipation Current Visit: Yes Status: Acute Code(s): K59.00 - CONSTIPATION, UNSPECIFIED SNOMED Code(s): 41230295 Comment: resolved with golytely continue miralax for maintenance encourage ambulation as tolerated cause was likely immobility plus hypercalcemia encourage PO intake (2) Hyperparathyroidism due to lithium therapy Current Visit: No Status: Acute Code(s): E21.1 - SECONDARY HYPERPARATHYROIDISM, NOT ELSEWHERE CLASSIFIED SNOMED Code(s): 489256345 Comment: Chronic and likely worsened by inactivity Ca++ has been normal even without IVF; continue po fluid Evaluated by Dr. Mark, who recommended medical management, and sensipar was started with improvement in calcium levels--recheck today Discontinuation of lithium deemed not to be a viable option due to successful mood stabilization No parathyroid adenoma noted on US (3) Parkinson disease Current Visit: No Status: Acute Code(s): G20 - PARKINSON'S DISEASE SNOMED Code(s): 42153146 Comment: switch back to sinimet from the patch today With recent admission for decompensated symptoms: from last visit: "the process probably started of her UTI end of September and progressed with poor PO intake, dehydration, worsening hypercalcemia, inability to take PO Sinemet, and PD decompensation." MRI brain was negative for stroke. 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 Continue [place], Lamotrigine, clonazepam, mirtazapine, sertraline . (5) Weakness Current Visit: No Status: Acute Priority: High Code(s): R53.1 - WEAKNESS SNOMED Code(s): 80607751 Comment: she agrees to do PT today after refusing yesterday (6) COPD (chronic obstructive pulmonary disease) Current Visit: No Status: Chronic Priority: High Code(s): J44.9 - CHRONIC OBSTRUCTIVE PULMONARY DISEASE, UNSPECIFIED SNOMED Code(s): 57250049 Comment: stable (7) Hypokalemia Current Visit: Yes Status: Acute Code(s): E87.6 - HYPOKALEMIA SNOMED Code( s): 02054326 Comment: likely related to poor po intake also with hypophosphatemia caution for refeeding syndrome will trend (8) Urinary retention Current Visit: Yes Status: Acute Code(s): R33.9 - RETENTION OF URINE, UNSPECIFIED SNOMED Code(s): 913408627 Comment: with espinoza plan to keep espinoza per Dr. Abbott (9) DVT prophylaxis Current Visit: No Status: Acute Priority: Medium Code(s): [id number] - SNOMED Code(s): 436661365 Comment: - SQ heparin. Status and Disposition: Matthew has changed his mind and wants Cyndi to be referred to [facility]. Discussed with case management.
[2018-11-30] MEDS: ROTIGOTINE 2 MG/24 HR TOPICAL SCH (08:59)
[2018-11-30 09:58] LABS: Calcium 9.9 mg/dL (8.6-10.3); Potassium 3.9 mmol/L (3.5-5.0)
[2018-11-30 10:03] LABS: EGFR Non-African American 67.8 (>60); Phosphorus 2.4 mg/dL (2.5-5.0)
[2018-11-30] MEDS: Carbidopa/Levodop 25/100 MG TAB(*) PO SCH ×2 (12:35→18:09)
[2018-11-30] MEDS: Ibuprofen ADULT LIQ* 600 MG/30 ML UDC PO PRN (13:43)
[2018-11-30] MEDS: Mirtazapine TAB* 15 MG PO SCH (22:34)
[2018-11-30] MEDS: Ibuprofen TAB* 600 MG PO PRN (22:52)
[2018-11-30] MEDS: Terazosin CAP* 1 MG PO SCH (22:53)
[2018-12-01] MEDS: Mometasone/Formoter 100/5 MDI INH SCH ×3 (06:50→19:38)
[2018-12-01] MEDS: Heparin VIAL(*) 5000 UNITS/ML VIAL (FIVE THOUSAND) SUBCUT SCH ×3 (07:14→22:03)
[2018-12-01] MEDS: Lithium Carbonate TAB* 300 MG PO SCH ×2 (08:05→20:14)
[2018-12-01] MEDS: clonazePAM TAB(*) 0.5 MG PO SCH ×3 (08:05→20:15)
[2018-12-01] MEDS: Potassium & Sodium Phos 250MG* = 1 PACKET PO SCH (08:05)
[2018-12-01] MEDS: Sertraline* 100 MG TAB PO SCH (08:05)
[2018-12-01] MEDS: lamoTRIgine TAB(*) 100 MG PO SCH ×2 (08:05→20:15)
[2018-12-01] MEDS: Lactobacillus Acidophilus* 1 TAB PO SCH (08:05)
[2018-12-01] MEDS: Pantoprazole TAB * 40 MG TAB PO SCH (08:06)
[2018-12-01] MEDS: Potassium Acid Phosphate TAB* 500 MG PO SCH (08:06)
[2018-12-01] MEDS: Polyethylene Glycol 3350* 17 GM PACKET PO SCH ×2 (08:06→20:15)
[2018-12-01] MEDS: Potassium Chlor TAB* 20 MEQ TAB.ER PO SCH ×2 (08:06→20:14)
[2018-12-01] MEDS: Carbidopa/Levodop 25/100 MG TAB(*) PO SCH ×3 (08:11→18:32)
[2018-12-01] MEDS: Propranolol TAB* 10 MG PO SCH (08:23)
[2018-12-01] MEDS: Ondansetron INJ* 2 MG/ML VIAL IV PRN ×2 (08:32→18:34)
--- NOTE | 2018-12-01 08:49 | PN ---
Subjective Date of Service: 12/01/18 Interval History: Cyndi worked with PT yesterday. She is dressed this morning. Matthew is at the bedside. He reports that she is more confused than usual. She has no complaints, feels okay. Objective Active Medications: Acetaminophen (Tylenol Tab*) 650 mg PO Q6H PRN PRN Reason: PAIN - MILD Bisacodyl (Dulcolax Supp*) 10 mg DE DAILY PRN PRN Reason: CONSTIPATION Carbidopa/Levodopa (Sinemet 25/100 Tab(*)) 3 tab PO 0830,1300,1830 [facility] Last Admin: 12/01/18 08:11 Dose: 3 tab Clonazepam (Klonopin Tab(*)) 0.5 mg PO TID [facility] Last Admin: 12/01/18 08:05 Dose: 0.5 mg Heparin Sodium (Porcine) (Heparin Vial(*)) 5,000 units SUBCUT Q8H [facility] Last Admin: 12/01/18 07:14 Dose: 5,000 units Ibuprofen (Motrin Tab*) 600 mg PO Q8H PRN PRN Reason: PAIN - MILD Last Admin: 11/30/18 22:52 Dose: 600 mg Lactobacillus Rhamnosus (Lactobacillus Acidophilus*) 1 tab PO DAILY [facility] Last Admin: 12/01/18 08:05 Dose: 1 tab Lamotrigine (Lamictal Tab(*)) 100 mg PO BID [facility] Last Admin: 12/01/18 08:05 Dose: 100 mg Garfield Carbonate (Garfield Carbonate Tab*) 300 mg PO BID [facility] Last Admin: 12/01/18 08:05 Dose: 300 mg Magnesium Hydroxide (Milk Of Magnesia Liq*) 30 ml PO Q6H PRN PRN Reason: CONSTIPATION Mirtazapine (Remeron Tab*) 15 mg PO BEDTIME [facility] Last Admin: 11/30/18 22:34 Dose: 15 mg Mometasone Furoate/Formoterol Fumar (Dulera 100/5 Mdi*) 2 puff INH BID [facility] Last Admin: 12/01/18 06:50 Dose: 2 puff Ondansetron HCl (Zofran Inj*) 4 mg IV Q4H PRN PRN Reason: NAUSEA Last Admin: 12/01/18 08:32 Dose: 4 mg Pantoprazole Sodium (Protonix Tab*) 40 mg PO DAILY [facility] Last Admin: 12/01/18 08:06 Dose: 40 mg Polyethylene Glycol/Electrolytes (Miralax*) 17 gm PO 0800,2100 [facility] Last Admin: 12/01/18 08:06 Dose: Not Given Potassium Chloride (Klor Con Er Tab*) 20 meq PO BID [facility] Last Admin: 12/01/18 08:06 Dose: 20 meq Potassium Phos/Sodium Phos (Neutra Phos 250 Mg William*) 250 mg PO TID [facility] Last Admin: 12/01/18 08:05 Dose: 250 mg Potassium Phosphate (K Phos Original Tab*) 500 mg PO DAILY [facility] Last Admin: 12/01/18 08:06 Dose: 500 mg Propranolol HCl (Inderal Tab*) 10 mg PO DAILY [facility] Last Admin: 12/01/18 08:23 Dose: Not Given Sertraline HCl (Zoloft*) 100 mg PO DAILY [facility] Last Admin: 12/01/18 08:05 Dose: 100 mg Sodium Chloride (Sodium Chloride 0.65% Nasal [place]*) 1 spray BOTH NARES Q4H PRN PRN Reason: CONGESTION Last Admin: 11/27/18 08:03 Dose: 1 spray Terazosin HCl (Hytrin Cap*) 1 mg PO BEDTIME [facility] Last Admin: 11/30/18 22:53 Dose: 1 mg Vital Signs - 8 hr 12/01/18 12/01/18 12/01/18 02:15 06:52 07:01 Temperature 97.9 F Pulse Rate 64 70 Respiratory 20 16 16 Rate Blood Pressure 113/65 (mmHg) O2 Sat by Pulse 94 Oximetry 12/01/18 12/01/18 12/01/18 07:56 08:00 08:05 Temperature 98.2 F Pulse Rate 66 Respiratory 16 18 18 Rate Blood Pressure 121/69 (mmHg) O2 Sat by Pulse 95 Oximetry Oxygen Devices in Use Now: None Appearance: alert, hypokinetic, well appearing, forgetful Eyes: No Scleral Icterus Ears/Nose/Mouth/Throat: NL Teeth, Lips, Gums Neck: NL Appearance and Movements; NL JVP Respiratory: Symmetrical Chest Expansion and Respiratory Effort Cardiovascular: NL Sounds; No Murmurs; No JVD, RRR Abdominal: NL Sounds; No Tenderness; No Distention Lymphatic: No Cervical Adenopathy Extremities: No Edema Skin: No Rash or Ulcers Neurological: - - tremor - Nutrition: Malnutrition Diagnosis/Plan Malnutrition Assessment by Registered Dietitian: Malnutrition Assessment Clinical Characteristics Acute,Severe Malnutrition Assessment: Moderate temporal wasting Criteria Inadequate Oral Intake: Little to no intake x2 wks - Anticipate meeting <50% of needs >5 days Unintentional Wt Loss: 10lb wt loss x2 wks current wt 128lb, UBW 138lb - 7.2% loss x2 wks ( severe) Malnutrition Assessment: GI Related - Recommend continuing bowel meds PRN Interventions as indicated; will monitor GI s/sx for impact on intake. Texture Modifications - Recommend KENNEL TECHNICIAN eval as indicated; will monitor tolerance to dietary textures. Nutritional Supplementals/Nourishments - Pt not amenable to nourishments/supplements at this time; will continue to monitor intakes and offer nourishments/supplements as indicated. Malnutrition Assessment: Goals 1) Recommend advancing diet as able 2) Pt will tolerate least restrictive diet textures w/o further difficulty chewing/ swallowing 3) Adequate po intake to replete lean body mass and hydration status 4) Improved fluid/electrolyte balance w/ adequate po intake 5) Improved bowel regularity w/ adequate po intake w/o exacerbation of constipation or development of diarrhea Result Diagrams: 11/27/18 04:53 11/30/18 09:33 Assess/Plan/Problems-Billing Assessment: This is a 73 year old woman with history of Parkinson's Disease who was recently admitted for UTI and weakness after missing sinimet, then was transferred to [facility] for rehab. [facility] stay complicated by constipation x 5 days, re-admitted to inpatient on 11/24 for constipation management with an NG tube due to refusal to take PO - Patient Problems (1) Constipation Current Visit: Yes Status: Acute Code(s): K59.00 - CONSTIPATION, UNSPECIFIED SNOMED Code(s): 82751696 Comment: resolved with golytely continue miralax for maintenance encourage ambulation as tolerated cause was likely immobility plus hypercalcemia encourage PO intake (2) Hyperparathyroidism due to lithium therapy Current Visit: No Status: Acute Code(s): E21.1 - SECONDARY HYPERPARATHYROIDISM, NOT ELSEWHERE CLASSIFIED SNOMED Code(s): 881482374 Comment: Chronic and likely worsened by inactivity Ca++ has been normal even without IVF; continue po fluid Evaluated by Dr. Mark, who recommended medical management, and sensipar was started with improvement in calcium levels--recheck today Discontinuation of lithium deemed not to be a viable option due to successful mood stabilization No parathyroid adenoma noted on US (3) Parkinson disease Current Visit: No Status: Acute Code(s): G20 - PARKINSON'S DISEASE SNOMED Code(s): 00237051 Comment: back on sinimet from the patch, though it's possible that this switch is the cause of her confusion; she may have responded better to the patch than the pill; will discuss with phramacy With recent admission for decompensated symptoms: from last visit: "the process probably started of her UTI end of September and progressed with poor PO intake, dehydration, worsening hypercalcemia, inability to take PO Sinemet, and PD decompensation." MRI brain was negative for stroke. (4) Bipolar disorder Current Visit: No Status: Chronic Priority: High Comment: Complex, [facility] follow up with Dr . Continue Garfield, Lamotrigine, clonazepam, mirtazapine, sertraline . (5) Weakness Current Visit: No Status: Acute Priority: High Code(s): R53.1 - WEAKNESS SNOMED Code(s): 77452042 Comment: she worked with Nael yesterday after refusing 6 PT attempts she needs STR, preferring [place]; discussed with Case Management (6) COPD (chronic obstructive pulmonary disease) Current Visit: No Status: Chronic Priority: High Code(s): J44.9 - CHRONIC OBSTRUCTIVE PULMONARY DISEASE, UNSPECIFIED SNOMED Code(s): 25172380 Comment: stable (7) Hypokalemia Current Visit: Yes Status: Acute Code(s): E87.6 - HYPOKALEMIA SNOMED Code( s): 20839587 Comment: likely related to poor po intake also with hypophosphatemia caution for refeeding syndrome will recheck tomorrow (8) Urinary retention Current Visit: Yes Status: Acute Code(s): R33.9 - RETENTION OF URINE, UNSPECIFIED SNOMED Code(s): 343291671 Comment: with espinoza plan to keep espinoza per Dr. Abbott (other option is intermittent straight cath, but not their preference) can re-visit tomorrow when urology is in house (9) DVT prophylaxis Current Visit: No Status: Acute Priority: Medium Code(s): NBL4395 - SNOMED Code(s): 731455030 Comment: - SQ heparin. Status and Disposition: Medically stable for discharge; awaiting arrangements for [facility] for STR
--- NOTE | 2018-12-01 12:15 | DS ---
CC: Dr. Angela Leal * DISCHARGE SUMMARY: DATE OF ADMISSION: 11/24/18 ANTICIPATED DATE OF DISCHARGE: 12/02/18 PRINCIPAL DISCHARGE DIAGNOSES: 1. Constipation. 2. Recent decompensation of Parkinson's disease. 3. Chronic urinary retention. 4. Hypercalcemia. SECONDARY DISCHARGE DIAGNOSES: 1. Recent urinary tract infection and PMRU stay. 2. Parkinson's disease. 3. Bipolar disease. 4. Depression. 5. Hyperparathyroidism. PHYSICAL EXAM: Please see my progress note from the morning of 12/01/18. MEDICATIONS PLANNED FOR DISCHARGE: 1. Lamotrigine 100 mg b.i.d. 2. Bisacodyl suppository 10 mg per rectal daily as needed for constipation. 3. Tylenol 650 q.6 p.r.n. pain. 4. Clonazepam 0.5 mg t.i.d. 5. Lactobacillus acidophilus 1 tab daily. 6. [place] carbonate 300 mg b.i.d. 7. Magnesium hydroxide liquid 30 mL q.6 p.r.n. constipation. 8. Mirtazapine 15 mg q.h.s. 9. Dulera 100/5 two puffs inhaled b.i.d. 10. Protonix 40 mg daily. 11. MiraLAX 17 g b.i.d. 12. Potassium acid phosphate tabs 500 mg daily. 13. Potassium chloride tabs 20 mEq b.i.d. 14. Propranolol 10 mg daily. 15. Sertraline 100 mg daily. 16. Terazosin 1 mg q.h.s. 17. Sinemet 25/100 mg 3 tabs t.i.d. HOSPITAL COURSE BY PROBLEM: 1. Constipation: Cyndi had been on PMRU recovering from a recent hospitalization for UTI and recent decompensation in her Parkinson's disease related to missing Sinemet; however, she had not been thriving on PMRU and had been unable to participate in therapy for some time. She had been constipated and had not had a bowel movement in several days, so Medicine was consulted on PMRU on 11/22/18, who attempted to augment the bowel regimen; however, she continued to fail the progress in therapy and continued to be unable to have a bowel movement, so on 11/24/18 the decision was made to readmit the patient to Medicine for aggressive constipation treatment including an NG tube for lactulose as the patient was not taking p.o. due to nausea. At that time, a CT scan was obtained, which showed no obstruction. An NG tube was placed and lactulose was started. The etiology of her constipation was thought to be multifactorial and related to ongoing hypercalcemia as well as ongoing immobility and dehydration. Lactulose was continued as well as enemas; however , she was unsuccessful in having a bowel movement. IV fluids were started to treat her hypercalcemia and GoLYTELY was started via the NG tube and she successfully had a bowel movement on 11/27/18 as her calcium normalized and mobility was regained. Regarding ongoing risk of constipation, given her decreased mobility and hypercalcemia, I have started her on daily MiraLAX and she is encouraged to stay hydrated and mobile as much as tolerated. 2. Hypercalcemia. This has been chronic and was thought to be most likely related to lithium use and the consideration of discontinuing lithium has been opposed by her and her as she has had good mood control on it. She was evaluated by Dr. Mark. Dr. Mark recommended Sensipar if her hypercalcemia persisted, however, we have been able to manage her calcium with hydration alone. However, this is the consideration in the future should she remain hypercalcemic. Thyroid ultrasound did not show any parathyroid adenoma. I have had her off IV fluids and she has been able to maintain oral hydration enough that her calcium has remained within normal limits. 3. Chronic urinary retention. She is well known to Dr. Abbott and she has failed several voiding trials during this admission/PMRU stay/admission. Dr. Abbott recommends keeping the Capellan catheter in place versus intermittent straight catheterization, but this has not been a palatable option for her and her family, so the Capellan catheter remains in place and she needs followup with Dr. Abbott. 4. Weakness and deconditioning. As mentioned, she had an unsuccessful stay in PMRU and she was deemed not to be a candidate to return to [facility] at the time of discharge. She refused physical therapy 6 times during this short admission; however, finally agreed to work with them on 11/30/18 and they recommended short - term rehab. Her agreed with this plan and at the time of this dictation, case management is working on placement and they are hoping to get her to [facility] with the ultimate goal of taking her home. 5. Parkinson disease. She required a carbidopa/levodopa patch while she was unable to take p.o. but has currently been switched back to Sinemet. 6. Hypokalemia. Likely related to poor p.o. intake and responding to oral supplementation. We will recheck her potassium prior to discharge to be sure she is on adequate supplementation. 7. COPD. She was continued on her home inhalers. 8. Acute severe malnutrition. She was followed by the inpatient marksmanship instructor. 9. Disposition. Ms. Nelson is stable for discharge and is awaiting transfer to [facility]. An addendum to this discharge summary will be dictated should this plan change. CONDITION AT THE TIME OF DISCHARGE: Stable. [id number]/[facility] #: [id number] [email or web address]
[2018-12-01 15:24] LABS: Urine Appearance Clear; Urine Bacteria Absent (Absent); Urine Bilirubin Negative (Negative); Urine Blood Negative (Negative); Urine Color Yellow; Urine Glucose Negative (Negative); Urine Ketones Negative (Negative); Urine Nitrite Negative (Negative); Urine Protein Negative (Negative); Urine Red Blood Cell Trace(0-2/hpf) (Absent); Urine Specific Gravity 1.006 (1.010-1.030); Urine Urobilinogen Negative (Negative); Urine White Blood Cell 2+(11-20/hpf) (Absent)
[2018-12-01] MEDS: Mirtazapine TAB* 15 MG PO SCH (20:14)
[2018-12-01] MEDS: Terazosin CAP* 1 MG PO SCH (20:15)
[2018-12-02 05:40] LABS: BUN/Creatinine Ratio 11.8 (8-20); Calcium 9.9 mg/dL (8.6-10.3); EGFR African American 79.8 (>60); EGFR Non-African American 65.9 (>60); Phosphorus 2.9 mg/dL (2.5-5.0); Potassium 5.2 mmol/L (3.5-5.0)
[2018-12-02] MEDS: Heparin VIAL(*) 5000 UNITS/ML VIAL (FIVE THOUSAND) SUBCUT SCH ×3 (05:55→21:04)
[2018-12-02] MEDS: Mometasone/Formoter 100/5 MDI INH SCH ×2 (07:37→19:23)
[2018-12-02] MEDS: Polyethylene Glycol 3350* 17 GM PACKET PO SCH ×2 (07:41→21:08)
[2018-12-02] MEDS: Propranolol TAB* 10 MG PO SCH (07:49)
[2018-12-02] MEDS: Sertraline* 100 MG TAB PO SCH (07:49)
[2018-12-02] MEDS: Pantoprazole TAB * 40 MG TAB PO SCH (07:49)
[2018-12-02] MEDS: lamoTRIgine TAB(*) 100 MG PO SCH ×2 (07:49→21:06)
[2018-12-02] MEDS: Lithium Carbonate TAB* 300 MG PO SCH ×2 (07:49→21:06)
[2018-12-02] MEDS: Lactobacillus Acidophilus* 1 TAB PO SCH (07:49)
[2018-12-02] MEDS: Potassium Acid Phosphate TAB* 500 MG PO SCH (07:49)
[2018-12-02] MEDS: clonazePAM TAB(*) 0.5 MG PO SCH ×3 (07:50→21:05)
[2018-12-02] MEDS: Carbidopa/Levodop 25/100 MG TAB(*) PO SCH ×3 (08:02→17:45)
[2018-12-02] MEDS: Acetaminophen TAB* 325 MG PO PRN (08:02)
--- NOTE | 2018-12-02 09:27 | PN ---
<TatyanadonnyJacquelinemerle - Last Filed: 12/02/18 13:03> Subjective Date of Service: 12/02/18 Interval History: Patient is confused and forgetful. It is waxing and waning and more on morning. She is complaining of right upper abdominal pain. Had one bowel movement today which was loose. Eating well. No any nausea or vomiting. No any acute overnight events. Objective Active Medications: Acetaminophen (Tylenol Tab*) 650 mg PO Q6H PRN PRN Reason: PAIN - MILD Last Admin: 12/02/18 08:02 Dose: 650 mg Bisacodyl (Dulcolax Supp*) 10 mg [place] DAILY PRN PRN Reason: CONSTIPATION Carbidopa/Levodopa (Sinemet 25/100 Tab(*)) 3 tab PO 0830,1300,1830 [facility] Last Admin: 12/02/18 08:02 Dose: 3 tab Clonazepam (Klonopin Tab(*)) 0.5 mg PO TID [facility] Last Admin: 12/02/18 07:50 Dose: 0.5 mg Heparin Sodium (Porcine) (Heparin Vial(*)) 5,000 units SUBCUT Q8H [facility] Last Admin: 12/02/18 05:55 Dose: 5,000 units Ibuprofen (Motrin Tab*) 600 mg PO Q8H PRN PRN Reason: PAIN - MILD Last Admin: 11/30/18 22:52 Dose: 600 mg Lactobacillus Rhamnosus (Lactobacillus Acidophilus*) 1 tab PO DAILY [facility] Last Admin: 12/02/18 07:49 Dose: 1 tab Lamotrigine (Lamictal Tab(*)) 100 mg PO BID [facility] Last Admin: 12/02/18 07:49 Dose: 100 mg [place] Carbonate ([place] Carbonate Tab*) 300 mg PO BID [facility] Last Admin: 12/02/18 07:49 Dose: 300 mg Magnesium Hydroxide (Milk Of Magnesia Liq*) 30 ml PO Q6H PRN PRN Reason: CONSTIPATION Mirtazapine (Remeron Tab*) 15 mg PO BEDTIME [facility] Last Admin: 12/01/18 20:14 Dose: 15 mg Mometasone Furoate/Formoterol Fumar (Dulera 100/5 Mdi*) 2 puff INH BID [facility] Last Admin: 12/02/18 07:37 Dose: 2 puff Ondansetron HCl (Zofran Inj*) 4 mg IV Q4H PRN PRN Reason: NAUSEA Last Admin: 12/01/18 18:34 Dose: 4 mg Pantoprazole Sodium (Protonix Tab*) 40 mg PO DAILY [facility] Last Admin: 12/02/18 07:49 Dose: 40 mg Polyethylene Glycol/Electrolytes (Miralax*) 17 gm PO 0800,2100 [facility] Last Admin: 12/02/18 07:41 Dose: Not Given Propranolol HCl (Inderal Tab*) 10 mg PO DAILY [facility] Last Admin: 12/02/18 07:49 Dose: 10 mg Sertraline HCl (Zoloft*) 100 mg PO DAILY [facility] Last Admin: 12/02/18 07:49 Dose: 100 mg Sodium Chloride (Sodium Chloride 0.65% Nasal [place]*) 1 spray BOTH [place]AR[place] Q4H PRN PRN Reason: CONGESTION Last Admin: 11/27/18 08:03 Dose: 1 spray Terazosin HCl (Hytrin Cap*) 1 mg PO BEDTIME [facility] Last Admin: 12/01/18 20:15 Dose: 1 mg Vital Signs - 8 hr 12/02/18 12/02/18 12/02/18 03:15 06:08 07:15 Temperature 97.0 F 97.3 F Pulse Rate 74 69 Respiratory 19 18 17 Rate Blood Pressure 129/76 104/56 (mmHg) O2 Sat by Pulse 96 94 Oximetry 12/02/18 12/02/18 07:50 08:00 Temperature Pulse Rate Respiratory 18 18 Rate Blood Pressure (mmHg) O2 Sat by Pulse Oximetry Oxygen Devices in Use Now: None Exam: Patient is sitting on a chair. No any acute distress. HEENT: Atraumatic, Normocephalic. Chest: Normal vesicular sound heard Heart: Kym S1/S2 heard with no any murmur or rubs. Abdomen: Soft nondistended and nontender. Normal bowel sound heard. Neuro: Alert, oriented to place and person but not to time. Conscious. Tremor on hands. Motor and sensory normal. Extremity: NO any swelling or redness. - Nutrition: Malnutrition Diagnosis/Plan Malnutrition Assessment by Registered Dietitian: Malnutrition Assessment Clinical Characteristics Acute,Severe Malnutrition Assessment: Moderate temporal wasting Criteria Inadequate Oral Intake: Little to no intake x2 wks - Anticipate meeting <50% of needs >5 days Unintentional Wt Loss: 10lb wt loss x2 wks current wt 128lb, UBW 138lb - 7.2% loss x2 wks ( severe) Malnutrition Assessment: GI Related - Recommend continuing bowel meds PRN Interventions as indicated; will monitor GI s/sx for impact on intake. Texture Modifications - Recommend MEDICAL DEVICE SALES CONSULTANT eval as indicated; will monitor tolerance to dietary textures. Nutritional Supplementals/Nourishments - Pt not amenable to nourishments/supplements at this time; will continue to monitor intakes and offer nourishments/supplements as indicated. Malnutrition Assessment: Goals 1) Recommend advancing diet as able 2) Pt will tolerate least restrictive diet textures w/o further difficulty chewing/ swallowing 3) Adequate po intake to replete lean body mass and hydration status 4) Improved fluid/electrolyte balance w/ adequate po intake 5) Improved bowel regularity w/ adequate po intake w/o exacerbation of constipation or development of diarrhea Result Diagrams: 11/27/18 04:53 12/02/18 05:05 Assess/Plan/Problems-Billing Assessment: This is a 73 year old woman with history of Parkinson's Disease and Bipolar(on lithium) who was recently admitted for UTI and weakness after missing sinimet, then was transferred to [facility] for rehab. [facility] stay complicated by constipation x 5 days, re-admitted to inpatient on 11/24 for constipation management with an NG tube due to refusal to take PO. - Patient Problems (1) Constipation Current Visit: Yes Status: Acute Code(s): K59.00 - CONSTIPATION, UNSPECIFIED SNOMED Code(s): 67541681 Comment: resolved with golytely laxatives given as needed. encourage ambulation as tolerated cause was likely immobility plus hypercalcemia encourage PO intake (2) Hyperparathyroidism due to lithium therapy Current Visit: No Status: Acute Code(s): E21.1 - SECONDARY HYPERPARATHYROIDISM, NOT ELSEWHERE CLASSIFIED SNOMED Code(s): 402190939 Comment: Chronic and likely worsened by inactivity Ca++ has been normal(9.5) even without IVF; continue po fluid Evaluated by Dr. Mark, who recommended medical management, and sensipar was started with improvement in calcium level Discontinuation of lithium deemed not to be a viable option due to successful mood stabilization No parathyroid adenoma noted on US (3) Neurogenic bladder Current Visit: No Status: Acute Code(s): N31.9 - NEUROMUSCULAR DYSFUNCTION OF BLADDER, UNSPECIFIED SNOMED Code(s): 436258404 Comment: - Continue Flomax. (4) Bipolar disorder Current Visit: No Status: Chronic Priority: High Comment: Complex, rn long term care Psych follow up with Dr Member. Continue [place], Lamotrigine, clonazepam, mirtazapine, sertraline . (5) COPD (chronic obstructive pulmonary disease) Current Visit: No Status: Chronic Priority: High Code(s): J44.9 - CHRONIC OBSTRUCTIVE PULMONARY DISEASE, UNSPECIFIED SNOMED Code(s): 04537351 Comment: stable (6) Parkinson disease Current Visit: No Status: Acute Code(s): G20 - PARKINSON'S DISEASE SNOMED Code(s): 88861809 Comment: on sinimet tolerating well. MRI brain was negative for stroke. (7) HTN (hypertension) Current Visit: No Status: Chronic Priority: High Code(s): I10 - ESSENTIAL (PRIMARY) HYPERTENSION SNOMED Code(s): 86547585 Comment: Controlled. Continue Inderall (8) DVT prophylaxis Current Visit: No Status: Acute Priority: Medium Code(s): NKV6579 - SNOMED Code(s): 377353534 Comment: - SQ heparin. (9) Full code status Current Visit: No Status: Acute Code(s): Z78.9 - OTHER SPECIFIED HEALTH STATUS SNOMED Code(s): 675761415 Status and Disposition: Medically stable for discharge; awaiting arrangements for subacute rehab Attending: Hammad Leal <Hammad Leal - Last Filed: 12/02/18 18:19> Objective Active Medications: Acetaminophen (Tylenol Tab*) 650 mg PO Q6H PRN PRN Reason: PAIN - MILD Last Admin: 12/02/18 08:02 Dose: 650 mg Bisacodyl (Dulcolax Supp*) 10 mg [place] DAILY PRN PRN Reason: CONSTIPATION Carbidopa/Levodopa (Sinemet 25/100 Tab(*)) 3 tab PO 0830,1300,1830 [facility] Last Admin: 12/02/18 17:45 Dose: 3 tab Clonazepam (Klonopin Tab(*)) 0.5 mg PO TID [facility] Last Admin: 12/02/18 13:15 Dose: 0.5 mg Heparin Sodium (Porcine) (Heparin Vial(*)) 5,000 units SUBCUT Q8H [facility] Last Admin: 12/02/18 13:15 Dose: 5,000 units Ibuprofen (Motrin Tab*) 600 mg PO Q8H PRN PRN Reason: PAIN - MILD Last Admin: 11/30/18 22:52 Dose: 600 mg Lactobacillus Rhamnosus (Lactobacillus Acidophilus*) 1 tab PO DAILY [facility] Last Admin: 12/02/18 07:49 Dose: 1 tab Lamotrigine (Lamictal Tab(*)) 100 mg PO BID [facility] Last Admin: 12/02/18 07:49 Dose: 100 mg [place] Carbonate ([place] Carbonate Tab*) 300 mg PO BID [facility] Last Admin: 12/02/18 07:49 Dose: 300 mg Magnesium Hydroxide (Milk Of Magnesia Liq*) 30 ml PO Q6H PRN PRN Reason: CONSTIPATION Mirtazapine (Remeron Tab*) 15 mg PO BEDTIME [facility] Last Admin: 12/01/18 20:14 Dose: 15 mg Mometasone Furoate/Formoterol Fumar (Dulera 100/5 Mdi*) 2 puff INH BID [facility] Last Admin: 12/02/18 07:37 Dose: 2 puff Ondansetron HCl (Zofran Inj*) 4 mg IV Q4H PRN PRN Reason: NAUSEA Last Admin: 12/01/18 18:34 Dose: 4 mg Pantoprazole Sodium (Protonix Tab*) 40 mg PO DAILY [facility] Last Admin: 12/02/18 07:49 Dose: 40 mg Polyethylene Glycol/Electrolytes (Miralax*) 17 gm PO 0800,2100 [facility] Last Admin: 12/02/18 07:41 Dose: Not Given Propranolol HCl (Inderal Tab*) 10 mg PO DAILY [facility] Last Admin: 12/02/18 07:49 Dose: 10 mg Sertraline HCl (Zoloft*) 100 mg PO DAILY [facility] Last Admin: 12/02/18 07:49 Dose: 100 mg Sodium Chloride (Sodium Chloride 0.65% Nasal [place]*) 1 spray BOTH NARES Q4H PRN PRN Reason: CONGESTION Last Admin: 11/27/18 08:03 Dose: 1 spray Terazosin HCl (Hytrin Cap*) 1 mg PO BEDTIME [facility] Last Admin: 12/01/18 20:15 Dose: 1 mg Vital Signs - 8 hr 12/02/18 12/02/18 12/02/18 11:15 13:15 15:01 Temperature 98.5 F Pulse Rate 72 Respiratory 12 18 18 Rate Blood Pressure 109/52 (mmHg) O2 Sat by Pulse 99 Oximetry 12/02/18 15:15 Temperature 97.6 F Pulse Rate 66 Respiratory 12 Rate Blood Pressure 105/65 (mmHg) O2 Sat by Pulse 96 Oximetry - Nutrition: Malnutrition Diagnosis/Plan Malnutrition Assessment by Registered Dietitian: Malnutrition Assessment Clinical Characteristics Acute,Severe Malnutrition Assessment: Moderate temporal wasting Criteria Inadequate Oral Intake: Little to no intake x2 wks - Anticipate meeting <50% of needs >5 days Unintentional Wt Loss: 10lb wt loss x2 wks current wt 128lb, UBW 138lb - 7.2% loss x2 wks ( severe) Malnutrition Assessment: GI Related - Recommend continuing bowel meds PRN Interventions as indicated; will monitor GI s/sx for impact on intake. Texture Modifications - Recommend MEDICAL DEVICE SALES CONSULTANT eval as indicated; will monitor tolerance to dietary textures. Nutritional Supplementals/Nourishments - Pt not amenable to nourishments/supplements at this time; will continue to monitor intakes and offer nourishments/supplements as indicated. Malnutrition Assessment: Goals 1) Recommend advancing diet as able 2) Pt will tolerate least restrictive diet textures w/o further difficulty chewing/ swallowing 3) Adequate po intake to replete lean body mass and hydration status 4) Improved fluid/electrolyte balance w/ adequate po intake 5) Improved bowel regularity w/ adequate po intake w/o exacerbation of constipation or development of diarrhea Result Diagrams: 11/27/18 04:53 12/02/18 05:05 Assess/Plan/Problems-Billing Assessment: Attestation Documenting Resident: Joanna Supervising Physician: Elvis Attending/Supervising Physician Comment: Seen with Dr. Marshall and discussed care with . Confused this AM but closer to baseline this afternoon per patient and . Family deciding on [facility] vs potentially taking patient home Urine culture checked at 's request. Growing enterococcus today. Will start macrobid and await sensitivities Attestation: This service has been performed in part by a resident under the direction of a teaching physician.Elvis Byrne, performed the service, or was physically present during the critical, or de la garza portions of the service, furnished by the resident. I participated in the management of the patient.
[2018-12-02] MEDS: Terazosin CAP* 1 MG PO SCH (21:06)
[2018-12-02] MEDS: Mirtazapine TAB* 15 MG PO SCH (21:07)
[2018-12-02] MEDS: Nitrofurantoin Macrocrystals* 50 MG CAP PO SCH (21:45)
[2018-12-03] MEDS: Heparin VIAL(*) 5000 UNITS/ML VIAL (FIVE THOUSAND) SUBCUT SCH ×3 (05:32→21:03)
[2018-12-03 06:30] LABS: BUN/Creatinine Ratio 14.1 (8-20); Calcium 10.5 mg/dL (8.6-10.3); EGFR African American 88.1 (>60); EGFR Non-African American 72.8 (>60); Magnesium 1.8 mg/dL (1.9-2.7); Potassium 4.7 mmol/L (3.5-5.0)
[2018-12-03] MEDS ORDERED: Magnesium Sulfate 1 GM IV* 1 GM/100 ML BAG IV ONE (06:34)
[2018-12-03] MEDS: Polyethylene Glycol 3350* 17 GM PACKET PO SCH ×2 (08:08→21:02)
[2018-12-03] MEDS: Ondansetron INJ* 2 MG/ML VIAL IV PRN (08:20)
[2018-12-03] MEDS: Lithium Carbonate TAB* 300 MG PO SCH ×2 (08:21→20:55)
[2018-12-03] MEDS: lamoTRIgine TAB(*) 100 MG PO SCH ×2 (08:21→20:55)
[2018-12-03] MEDS: Nitrofurantoin Macrocrystals* 50 MG CAP PO SCH ×3 (08:21→20:54)
[2018-12-03] MEDS: Pantoprazole TAB * 40 MG TAB PO SCH (08:21)
[2018-12-03] MEDS: Lactobacillus Acidophilus* 1 TAB PO SCH (08:21)
[2018-12-03] MEDS: clonazePAM TAB(*) 0.5 MG PO SCH ×3 (08:21→20:55)
[2018-12-03] MEDS: Propranolol TAB* 10 MG PO SCH (08:21)
[2018-12-03] MEDS: Sertraline* 100 MG TAB PO SCH (08:21)
[2018-12-03] MEDS: Mometasone/Formoter 100/5 MDI INH SCH ×2 (08:22→19:19)
[2018-12-03] MEDS: Carbidopa/Levodop 25/100 MG TAB(*) PO SCH ×3 (08:40→18:05)
--- NOTE | 2018-12-03 17:00 | PN ---
Subjective Date of Service: 12/03/18 Interval History: Patient is less confused today; on her baseline; Has baseline tremor She has been eating well. Refused PT but walking fine with aide. Has catheter insitu. Started on Nitrofurantoin 50 mg 6 hrly for E. fecealis grown on urine Waiting for disposition decision between [facility] vs Home with skilled facility. Objective Active Medications: Acetaminophen (Tylenol Tab*) 650 mg PO Q6H PRN PRN Reason: PAIN - MILD Last Admin: 12/02/18 08:02 Dose: 650 mg Bisacodyl (Dulcolax Supp*) 10 mg [place] DAILY PRN PRN Reason: CONSTIPATION Carbidopa/Levodopa (Sinemet 25/100 Tab(*)) 3 tab PO 0830,1300,1830 [facility] Last Admin: 12/03/18 13:53 Dose: 3 tab Clonazepam (Klonopin Tab(*)) 0.5 mg PO TID [facility] Last Admin: 12/03/18 13:54 Dose: 0.5 mg Heparin Sodium (Porcine) (Heparin Vial(*)) 5,000 units SUBCUT Q8H [facility] Last Admin: 12/03/18 13:54 Dose: 5,000 units Ibuprofen (Motrin Tab*) 600 mg PO Q8H PRN PRN Reason: PAIN - MILD Last Admin: 11/30/18 22:52 Dose: 600 mg Lactobacillus Rhamnosus (Lactobacillus Acidophilus*) 1 tab PO DAILY [facility] Last Admin: 12/03/18 08:21 Dose: 1 tab Lamotrigine (Lamictal Tab(*)) 100 mg PO BID [facility] Last Admin: 12/03/18 08:21 Dose: 100 mg [place] Carbonate (Lueders Carbonate Tab*) 300 mg PO BID [facility] Last Admin: 12/03/18 08:21 Dose: 300 mg Magnesium Hydroxide (Milk Of Magnesia Liq*) 30 ml PO Q6H PRN PRN Reason: CONSTIPATION Mirtazapine (Remeron Tab*) 15 mg PO BEDTIME [facility] Last Admin: 12/02/18 21:07 Dose: 15 mg Mometasone Furoate/Formoterol Fumar (Dulera 100/5 Mdi*) 2 puff INH BID [facility] Last Admin: 12/03/18 08:22 Dose: 2 puff Nitrofurantoin Macrocrystals (Macrodantin*) 50 mg PO Q6H [facility] Last Admin: 12/03/18 13:54 Dose: 50 mg Ondansetron HCl (Zofran Inj*) 4 mg IV Q4H PRN PRN Reason: NAUSEA Last Admin: 12/03/18 08:20 Dose: 4 mg Pantoprazole Sodium (Protonix Tab*) 40 mg PO DAILY [facility] Last Admin: 12/03/18 08:21 Dose: 40 mg Polyethylene Glycol/Electrolytes (Miralax*) 17 gm PO 0800,2100 [facility] Last Admin: 12/03/18 08:08 Dose: Not Given Propranolol HCl (Inderal Tab*) 10 mg PO DAILY [facility] Last Admin: 12/03/18 08:21 Dose: 10 mg Sertraline HCl (Zoloft*) 100 mg PO DAILY [facility] Last Admin: 12/03/18 08:21 Dose: 100 mg Sodium Chloride (Sodium Chloride 0.65% Nasal [employer]*) 1 spray BOTH NARES Q4H PRN PRN Reason: CONGESTION Last Admin: 11/27/18 08:03 Dose: 1 spray Terazosin HCl (Hytrin Cap*) 1 mg PO BEDTIME [facility] Last Admin: 12/02/18 21:06 Dose: 1 mg Vital Signs - 8 hr 12/03/18 12/03/18 12/03/18 09:03 11:12 11:15 Temperature 97.9 F Pulse Rate 66 Respiratory 16 16 16 Rate Blood Pressure 109/60 (mmHg) O2 Sat by Pulse 96 Oximetry 12/03/18 12/03/18 12/03/18 13:54 15:15 15:27 Temperature 97.5 F Pulse Rate 66 Respiratory 16 16 16 Rate Blood Pressure 101/69 (mmHg) O2 Sat by Pulse 97 Oximetry Oxygen Devices in Use Now: None Exam: Patient is sitting on her bad with no any acute distress. HEENT: Atraumatic, Normocephalic. Chest: Normal vesicular sound heard Heart: Kym S1/S2 heard with no any murmur or rubs. Abdomen: Soft nondistended and nontender. Normal bowel sound heard. Neuro: Alert, oriented to place and person but not to time. Conscious. Tremor on hands. Motor and sensory normal. Extremity: NO any swelling or redness. - Nutrition: Malnutrition Diagnosis/Plan Malnutrition Assessment by Registered Dietitian: Malnutrition Assessment Clinical Characteristics Acute,Severe Malnutrition Assessment: Moderate temporal wasting Criteria Inadequate Oral Intake: Little to no intake x2 wks - Anticipate meeting <50% of needs >5 days Unintentional Wt Loss: 10lb wt loss x2 wks current wt 128lb, UBW 138lb - 7.2% loss x2 wks ( severe) Malnutrition Assessment: GI Related - Recommend continuing bowel meds PRN Interventions as indicated; will monitor GI s/sx for impact on intake. Texture Modifications - Recommend [employer] eval as indicated; will monitor tolerance to dietary textures. Nutritional Supplementals/Nourishments - Pt not amenable to nourishments/supplements at this time; will continue to monitor intakes and offer nourishments/supplements as indicated. Malnutrition Assessment: Goals 1) Recommend advancing diet as able 2) Pt will tolerate least restrictive diet textures w/o further difficulty chewing/ swallowing 3) Adequate po intake to replete lean body mass and hydration status 4) Improved fluid/electrolyte balance w/ adequate po intake 5) Improved bowel regularity w/ adequate po intake w/o exacerbation of constipation or development of diarrhea Result Diagrams: 11/27/18 04:53 12/03/18 05:43 Assess/Plan/Problems-Billing Assessment: This is a 73 year old woman with history of Parkinson's Disease and Bipolar(on lithium) who was recently admitted for UTI and weakness after missing sinimet, then was transferred to [facility] for rehab. [facility] stay complicated by constipation x 5 days, re-admitted to inpatient on 11/24 for constipation management with an NG tube due to refusal to take PO. Urine culture shows E. fecealis; started on nitrofurantoin - Patient Problems (1) UTI (urinary tract infection) Current Visit: Yes Status: Acute Comment: No any symptom like abdominal pain or tenderness; has confusion but it is her baseline; has espinoza in place Urine Culture positive for E. fecealis Started on nitrofurantoin Plan is to continue for 5 days. (2) Constipation Current Visit: Yes Status: Acute Code(s): K59.00 - CONSTIPATION, UNSPECIFIED SNOMED Code(s): 90113601 Comment: resolved with golytely laxatives given as needed. encourage ambulation as tolerated cause was likely immobility plus hypercalcemia encourage PO intake (3) Hyperparathyroidism due to lithium therapy Current Visit: No Status: Acute Code(s): E21.1 - SECONDARY HYPERPARATHYROIDISM, NOT ELSEWHERE CLASSIFIED SNOMED Code(s): 100994556 Comment: Chronic and likely worsened by inactivity Ca++ has been normal(9.5) even without IVF; continue po fluid Evaluated by Dr. Mark, who recommended medical management, and sensipar was started with improvement in calcium level Discontinuation of lithium deemed not to be a viable option due to successful mood stabilization No parathyroid adenoma noted on US (4) Neurogenic bladder Current Visit: No Status: Acute Code(s): N31.9 - NEUROMUSCULAR DYSFUNCTION OF BLADDER, UNSPECIFIED SNOMED Code(s): 175520240 Comment: - Continue Flomax. 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 Continue [place], Lamotrigine, clonazepam, mirtazapine, sertraline . (6) COPD (chronic obstructive pulmonary disease) Current Visit: No Status: Chronic Priority: High Code(s): J44.9 - CHRONIC OBSTRUCTIVE PULMONARY DISEASE, UNSPECIFIED SNOMED Code(s): 68014866 Comment: stable (7) Parkinson disease Current Visit: No Status: Acute Code(s): G20 - PARKINSON'S DISEASE SNOMED Code(s): 69206886 Comment: on sinimet tolerating well. MRI brain was negative for stroke. (8) HTN (hypertension) Current Visit: No Status: Chronic Priority: High Code(s): I10 - ESSENTIAL (PRIMARY) HYPERTENSION SNOMED Code(s): 84292775 Comment: Controlled. Continue Inderall (9) DVT prophylaxis Current Visit: No Status: Acute Priority: Medium Code(s): [id number] - SNOMED Code(s): 329527797 Comment: - SQ heparin. (10) Full code status Current Visit: No Status: Acute Code(s): Z78.9 - OTHER SPECIFIED HEALTH STATUS SNOMED Code(s): 886003578 Status and Disposition: Medically stable for discharge; awaiting arrangements for subacute rehab([facility] vs home with group home facility) Attending: Hammad Leal Attestation Documenting Resident: Aure Marshall Supervising Physician: Hammad Leal Attending/Supervising Physician Comment: Parkinsons dz, bipolar dx on lithium admitted with constipation in setting of hypercalcemia suspected in setting of lithium Calcium is climbing again today. Repeat in AM Enterococcus UTI although hard to tell if it is colonization with espinoza in place and testing only done at 's request. Nitrofurantin for tx regardless Dispo planning. Pateint is medically stable for discharge, no active medical issues that cannot continue to be addressed on an outpatient basis Attestation: This service has been performed in part by a resident under the direction of a teaching physician.I, Hammad Leal, performed the service, or was physically present during the critical, or de la garza portions of the service, furnished by the resident. I participated in the management of the patient.
[2018-12-03] MEDS: Mirtazapine TAB* 15 MG PO SCH (20:56)
[2018-12-03] MEDS: Terazosin CAP* 1 MG PO SCH (20:56)
[2018-12-04] MEDS: Nitrofurantoin Macrocrystals* 50 MG CAP PO SCH ×4 (02:38→22:11)
[2018-12-04 06:09] LABS: BUN/Creatinine Ratio 12.2 (8-20); Calcium 11.1 mg/dL (8.6-10.3); EGFR African American 83.2 (>60); EGFR Non-African American 68.7 (>60); Potassium 4.5 mmol/L (3.5-5.0)
[2018-12-04] MEDS: Heparin VIAL(*) 5000 UNITS/ML VIAL (FIVE THOUSAND) SUBCUT SCH ×4 (06:34→22:22)
[2018-12-04] MEDS: Mometasone/Formoter 100/5 MDI INH SCH ×2 (07:21→19:32)
[2018-12-04] MEDS: Pantoprazole TAB * 40 MG TAB PO SCH (09:41)
[2018-12-04] MEDS: Sertraline* 100 MG TAB PO SCH (09:41)
[2018-12-04] MEDS: Carbidopa/Levodop 25/100 MG TAB(*) PO SCH ×3 (09:41→18:21)
[2018-12-04] MEDS: Lithium Carbonate TAB* 300 MG PO SCH ×2 (09:41→22:11)
[2018-12-04] MEDS: Polyethylene Glycol 3350* 17 GM PACKET PO SCH ×2 (09:41→22:11)
[2018-12-04] MEDS: Lactobacillus Acidophilus* 1 TAB PO SCH (09:41)
[2018-12-04] MEDS: lamoTRIgine TAB(*) 100 MG PO SCH ×2 (09:42→22:11)
[2018-12-04] MEDS: clonazePAM TAB(*) 0.5 MG PO SCH ×3 (09:42→22:11)
[2018-12-04] MEDS: Propranolol TAB* 10 MG PO SCH (09:42)
[2018-12-04] MEDS: Acetaminophen TAB* 325 MG PO PRN (14:14)
--- NOTE | 2018-12-04 14:18 | PN ---
Subjective Date of Service: 12/04/18 Interval History: Patient has no any complaint. Had one bowel movement yesterday but no bowel movement today. Has baseline tremor, and forgetfullness. Corrected Calcium 11.1; severe hypercalcemia: IVF given; May be due to lithium and precipitated by immobility. Patient refused PT but is walking around with the help of aide. [facility] for [facility] to confirm. Objective Active Medications: Acetaminophen (Tylenol Tab*) 650 mg PO Q6H PRN PRN Reason: PAIN - MILD Last Admin: 12/02/18 08:02 Dose: 650 mg Bisacodyl (Dulcolax Supp*) 10 mg MO DAILY PRN PRN Reason: CONSTIPATION Carbidopa/Levodopa (Sinemet 25/100 Tab(*)) 3 tab PO 0830,1300,1830 [facility] Last Admin: 12/04/18 09:41 Dose: 3 tab Clonazepam (Klonopin Tab(*)) 0.5 mg PO TID [facility] Last Admin: 12/04/18 09:42 Dose: 0.5 mg Heparin Sodium (Porcine) (Heparin Vial(*)) 5,000 units SUBCUT Q8H [facility] Last Admin: 12/04/18 06:34 Dose: 5,000 units Sodium Chloride (Ns 0.9% 1000 Ml) 1,000 mls @ 175 mls/hr IV PER RATE [facility] Ibuprofen (Motrin Tab*) 600 mg PO Q8H PRN PRN Reason: PAIN - MILD Last Admin: 11/30/18 22:52 Dose: 600 mg Lactobacillus Rhamnosus (Lactobacillus Acidophilus*) 1 tab PO DAILY [facility] Last Admin: 12/04/18 09:41 Dose: 1 tab Lamotrigine (Lamictal Tab(*)) 100 mg PO BID [facility] Last Admin: 12/04/18 09:42 Dose: 100 mg Hale Carbonate (Hale Carbonate Tab*) 300 mg PO BID [facility] Last Admin: 12/04/18 09:41 Dose: 300 mg Magnesium Hydroxide (Milk Of Magnesia Liq*) 30 ml PO Q6H PRN PRN Reason: CONSTIPATION Mirtazapine (Remeron Tab*) 15 mg PO BEDTIME [facility] Last Admin: 12/03/18 20:56 Dose: 15 mg Mometasone Furoate/Formoterol Fumar (Dulera 100/5 Mdi*) 2 puff INH BID [facility] Last Admin: 12/04/18 07:21 Dose: 2 puff Nitrofurantoin Macrocrystals (Macrodantin*) 50 mg PO Q6H [facility] Last Admin: 12/04/18 09:41 Dose: 50 mg Ondansetron HCl (Zofran Inj*) 4 mg IV Q4H PRN PRN Reason: NAUSEA Last Admin: 12/03/18 08:20 Dose: 4 mg Pantoprazole Sodium (Protonix Tab*) 40 mg PO DAILY [facility] Last Admin: 12/04/18 09:41 Dose: 40 mg Polyethylene Glycol/Electrolytes (Miralax*) 17 gm PO 0800,2100 [facility] Last Admin: 12/04/18 09:41 Dose: 17 gm Propranolol HCl (Inderal Tab*) 10 mg PO DAILY [facility] Last Admin: 12/04/18 09:42 Dose: 10 mg Sertraline HCl (Zoloft*) 100 mg PO DAILY [facility] Last Admin: 12/04/18 09:41 Dose: 100 mg Sodium Chloride (Sodium Chloride 0.65% Nasal [place]*) 1 spray BOTH NARES Q4H PRN PRN Reason: CONGESTION Last Admin: 11/27/18 08:03 Dose: 1 spray Terazosin HCl (Hytrin Cap*) 1 mg PO BEDTIME [facility] Last Admin: 12/03/18 20:56 Dose: 1 mg Vital Signs - 8 hr 12/04/18 12/04/18 12/04/18 07:23 07:57 09:42 Temperature 98.3 F Pulse Rate 60 71 Respiratory 14 16 16 Rate Blood Pressure 140/76 (mmHg) O2 Sat by Pulse 92 93 Oximetry 12/04/18 12/04/18 12/04/18 11:15 11:21 11:52 Temperature 98.2 F Pulse Rate 74 Respiratory 16 16 16 Rate Blood Pressure 121/73 (mmHg) O2 Sat by Pulse 94 Oximetry Oxygen Devices in Use Now: None Exam: Patient is sitting by the [facility] eo bed. No any acute illness. HEENT: Normocephalic, Atraumatic Lungs: Normal vesicular sound HEART: S1/S2 heard with no any murmur Abdomen: Soft, nondistended and nontender Extremity: No any swelling or redness Neuro: Forgetfull, Baseline tremor, Conscious. - Nutrition: Malnutrition Diagnosis/Plan Malnutrition Assessment by Registered Dietitian: Malnutrition Assessment Clinical Characteristics Acute,Severe Malnutrition Assessment: Moderate temporal wasting Criteria Inadequate Oral Intake: Little to no intake x2 wks - Anticipate meeting <50% of needs >5 days Unintentional Wt Loss: 10lb wt loss x2 wks current wt 128lb, UBW 138lb - 7.2% loss x2 wks ( severe) Malnutrition Assessment: GI Related - Recommend continuing bowel meds PRN Interventions as indicated; will monitor GI s/sx for impact on intake. Texture Modifications - Recommend TELEVISION MECHANIC eval as indicated; will monitor tolerance to dietary textures. Nutritional Supplementals/Nourishments - Pt not amenable to nourishments/supplements at this time; will continue to monitor intakes and offer nourishments/supplements as indicated. Malnutrition Assessment: Goals 1) Recommend advancing diet as able 2) Pt will tolerate least restrictive diet textures w/o further difficulty chewing/ swallowing 3) Adequate po intake to replete lean body mass and hydration status 4) Improved fluid/electrolyte balance w/ adequate po intake 5) Improved bowel regularity w/ adequate po intake w/o exacerbation of constipation or development of diarrhea Result Diagrams: 11/27/18 04:53 12/04/18 05:30 Assess/Plan/Problems-Billing Assessment: This is a 73 year old woman with history of Parkinson's Disease and Bipolar(on lithium) who was recently admitted for UTI and weakness after missing sinimet, then was transferred to [facility] for rehab. [facility] stay complicated by constipation x 5 days, re-admitted to inpatient on 11/24 for constipation management with an NG tube due to refusal to take PO. Urine culture shows E. fecealis; started on nitrofurantoin(day 2): Severe hypercalcemia; IVF given - Patient Problems (1) UTI (urinary tract infection) Current Visit: Yes Status: Acute Comment: No any symptom like abdominal pain or tenderness; has confusion but it is her baseline; has espinoza in place Urine Culture positive for E. fecealis Started on nitrofurantoin(day 2) Plan is to continue for 5 days. (2) Constipation Current Visit: Yes Status: Acute Code(s): K59.00 - CONSTIPATION, UNSPECIFIED SNOMED Code(s): 88288908 Comment: resolved with golytely laxatives given as needed. encourage ambulation as tolerated cause was likely immobility plus hypercalcemia encourage PO intake (3) Hyperparathyroidism due to lithium therapy Current Visit: No Status: Acute Code(s): E21.1 - SECONDARY HYPERPARATHYROIDISM, NOT ELSEWHERE CLASSIFIED SNOMED Code(s): 727336661 Comment: Chronic and likely worsened by inactivity Ca++ 11.1; IVF given: will check calcium again Evaluated by Dr. Mark, who recommended medical management, and sensipar was started with improvement in calcium level Discontinuation of lithium deemed not to be a viable option due to successful mood stabilization No parathyroid adenoma noted on US (4) Neurogenic bladder Current Visit: No Status: Acute Code(s): N31.9 - NEUROMUSCULAR DYSFUNCTION OF BLADDER, UNSPECIFIED SNOMED Code(s): 148438599 Comment: - Continue Flomax. 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 Continue Hale, Lamotrigine, clonazepam, mirtazapine, sertraline . (6) COPD (chronic obstructive pulmonary disease) Current Visit: No Status: Chronic Priority: High Code(s): J44.9 - CHRONIC OBSTRUCTIVE PULMONARY DISEASE, UNSPECIFIED SNOMED Code(s): 77422031 Comment: stable (7) Parkinson disease Current Visit: No Status: Acute Code(s): G20 - PARKINSON'S DISEASE SNOMED Code(s): 24590195 Comment: on sinimet tolerating well. MRI brain was negative for stroke. (8) HTN (hypertension) Current Visit: No Status: Chronic Priority: High Code(s): I10 - ESSENTIAL (PRIMARY) HYPERTENSION SNOMED Code(s): 79028323 Comment: Controlled. Continue Inderall (9) DVT prophylaxis Current Visit: No Status: Acute Priority: Medium Code(s): OSA1086 - SNOMED Code(s): 809704106 Comment: - SQ heparin. (10) Full code status Current Visit: No Status: Acute Code(s): Z78.9 - OTHER SPECIFIED HEALTH STATUS SNOMED Code(s): 266877035 Status and Disposition: Medically stable for discharge; awaiting arrangements for subacute rehab(SKILLED NURSING vs home with [facility] facility) Family liked [facility]: waiting for their confirmation. Attending: Hammad Leal Attestation Documenting Resident: Aure Marshall Supervising Physician: Hammad Leal Attending/Supervising Physician Comment: Notes RIVERA today. Resting in bed when seen. Calcium increase noted. Review of meds notable for absence of sensipar which was reportedly started last week. Will restart sensipar now at 30mg BID and recheck calicum in AM after 1 liter normal saline Clinically stable for discharge. May need uptitration of sensipar as outpatient Attestation: This service has been performed in part by a resident under the direction of a teaching physician.I, Hammad Leal, performed the service, or was physically present during the critical, or de la garza portions of the service, furnished by the resident. I participated in the management of the patient.
[2018-12-04] MEDS: NS 0.9% 1000 ML** 1,000 ML IV SCH ×2 (15:27→21:48)
[2018-12-04] MEDS: Ibuprofen TAB* 600 MG PO PRN (17:42)
[2018-12-04] MEDS: Cinacalcet TAB* 30 MG PO SCH (22:11)
[2018-12-04] MEDS: Mirtazapine TAB* 15 MG PO SCH (22:12)
[2018-12-04] MEDS: Terazosin CAP* 1 MG PO SCH (22:12)
[2018-12-05] MEDS: NS 0.9% 1000 ML** 1,000 ML IV SCH ×2 (03:15→10:24)
[2018-12-05] MEDS: Nitrofurantoin Macrocrystals* 50 MG CAP PO SCH ×3 (05:12→14:31)
[2018-12-05] MEDS: Heparin VIAL(*) 5000 UNITS/ML VIAL (FIVE THOUSAND) SUBCUT SCH ×2 (05:12→13:28)
[2018-12-05 06:46] LABS: BUN/Creatinine Ratio 11.6 (8-20); Calcium 9.9 mg/dL (8.6-10.3); EGFR African American 101.5 (>60); EGFR Non-African American 83.9 (>60); Potassium 4.2 mmol/L (3.5-5.0)
[2018-12-05] MEDS: Mometasone/Formoter 100/5 MDI INH SCH (07:49)
[2018-12-05] MEDS: lamoTRIgine TAB(*) 100 MG PO SCH (10:24)
[2018-12-05] MEDS: Cinacalcet TAB* 30 MG PO SCH (10:24)
[2018-12-05] MEDS: Lithium Carbonate TAB* 300 MG PO SCH (10:24)
[2018-12-05] MEDS: Lactobacillus Acidophilus* 1 TAB PO SCH (10:26)
[2018-12-05] MEDS: clonazePAM TAB(*) 0.5 MG PO SCH ×2 (10:26→14:30)
[2018-12-05] MEDS: Sertraline* 100 MG TAB PO SCH (10:29)
[2018-12-05] MEDS: Pantoprazole TAB * 40 MG TAB PO SCH (10:29)
[2018-12-05] MEDS: Propranolol TAB* 10 MG PO SCH (10:30)
[2018-12-05] MEDS: Polyethylene Glycol 3350* 17 GM PACKET PO SCH (10:37)
[2018-12-05] MEDS: Carbidopa/Levodop 25/100 MG TAB(*) PO SCH ×2 (10:58→13:28)
[2018-12-05 12:10] VITALS: BP 138/78
--- NOTE | 2018-12-05 14:00 | DS ---
CC: Dr. Angela Leal; [facility]. * DISCHARGE SUMMARY: DATE OF ADMISSION: 11/24/18 DATE OF DISCHARGE: 12/05/18 DISPOSITION AT DISCHARGE: To [facility]. CONDITION ON DISCHARGE: Improved and stable. Please see previously dictated discharge note from Dr. Amaro from 12/01/18 which will be summarized here. DIAGNOSES: 1. Constipation. 2. Recent decompensation of Parkinson disease. 3. Chronic urinary retention. 4. Hypercalcemia. 5. Urinary tract infection. SECONDARY DIAGNOSES: 1. Parkinson disease. 2. Bipolar disease. 3. Depression. 4. Hyperparathyroidism. PRIMARY CARE PROVIDER: Dr. Angela Leal. MEDICATIONS AT THE TIME OF DISCHARGE: 1. Lamictal 100 mg twice daily. 2. Clonazepam 0.5 mg 3 times a day as needed. 3. Tiotropium 1 cap inhaled daily. 4. Tamsulosin 0.4 mg at bedtime. 5. Zoloft 150 mg in the morning. 6. Propranolol 10 mg in the morning. 7. Zofran 4 mg every 6 hours as needed for nausea or vomiting. 8. Omeprazole 40 mg in the morning. 9. Remeron 15 mg at bedtime. 10. [place] 300 mg twice daily. 11. Probiotic 1 cap daily. 12. Docusate 50 mg twice daily. 13. Vitamin B12 500 mcg twice daily. 14. Sinemet 25/100 three tabs 3 times a day at 8:30, 1:00 p.m., and 6:30. 15. Symbicort 160/4.5 two puffs twice daily. 16. Aspirin 81 mg daily. 17. MiraLAX 17 g twice daily as needed for constipation. 18. Macrobid 100 mg twice daily for 6 additional tabs, beginning tonight on . 19. Sensipar 30 mg twice daily with meals. 20. Bisacodyl suppository 10 mg per rectum daily as needed for constipation. PERTINENT LABORATORY DATA: On the day of discharge, calcium 9.9, calcium peaked at 11.1. PERTINENT MICROBIOLOGY: Urine culture positive for Enterococcus faecalis resistant to ciprofloxacin and levofloxacin. HISTORY OF PRESENT ILLNESS AND HOSPITAL COURSE: This is a 73-year-old female, recent hospital stay for UTI, decompensation of Parkinson disease related to missing her Sinemet, transitioned to [facility] where she developed constipation, was unable to participate in therapy. Medicine service was consulted on 11/22/18 on successfully augmenting bowel regimen and was transferred to the medicine inpatient service, where an NG tube was placed for a more aggressive bowel regimen. CT scan at that time showed no obstruction. The constipation was thought to be multifactorial including related to hypercalcemia as well as ongoing immobility and dehydration. She received lactulose per her NG tube as well as IV fluids and GoLYTELY via the NG tube. Successfully started moving her bowels which remained consistent throughout the hospital stay. She was tolerating oral food as well as her daily bowel regimen at the time of discharge. Hypercalcemia is chronic, thought to be related to her lithium use; however, discontinuing lithium has not been considered as an option by the patient or her as she has had excellent mood control. She was evaluated by Endocrinology/Dr. Mark, who recommended Sensipar if her hypercalcemia persisted which was started prior to her discharge. There was no parathyroid adenoma noted on her thyroid ultrasound. She did receive intermittent IV fluids throughout the course of her hospital stay. She is known to Dr. Abbott for multiple failed voiding trials and will be discharged with a Capellan catheter, which was confirmed by Dr. Abbott prior to her discharge. Chronic urinary retention. As indicated above. Known by Dr. Abbott, failed multiple voiding trials, recommended Capellan catheter to remain in place. Weakness and deconditioning, unsuccessful stay at [facility], not deemed to be a candidate, accepted to [facility] at the time of discharge. Parkinson disease, on Sinemet, which she is taking without difficulty. COPD, on home medications. Severe malnutrition, followed by inpatient driver medic. At followup, please: 1. Follow calcium periodically at your discretion. 2. Consideration for discontinuation of Sensipar if calcium remains stable or is too low. 3. Ensure adequate bowel movements on current regimen. 4. No other specific labs or vitals that need followup. Reasons to return to the hospital include recurrent or worsening symptoms including constipation, weakness, fever, chills, night sweats, loss of consciousness, chest pain, shortness of breath, inability to obtain or tolerate medications. TIME SPENT: Greater than 45 minutes was spent on the discharge of the patient, greater than half was spent [id number] with the patient. [id number]/[facility] #: [id number] [facility]
== END 2018-12-05 15:00 | DRG 391 ==
LOC: SSU 17:40 → MED 11-27 16:12
PROVIDERS: ADMIT Internal Medicine; ATTEND Internal Medicine
DX: K59.00 Constipation, unspecified (principal); E43 Unspecified severe protein-calorie malnutrition; N39.0 Urinary tract infection, site not specified; J44.9 Chronic obstructive pulmonary disease, unspecified; E86.0 Dehydration; N31.9 Neuromuscular dysfunction of bladder, unspecified; E83.52 Hypercalcemia; G20 Parkinson's disease; F02.80 Dementia in other diseases classified elsewhere, unspecified severity, without behavioral disturbance, psychotic disturbance, mood disturbance, and anxiety; R33.9 Retention of urine, unspecified; E87.6 Hypokalemia; I10 Essential (primary) hypertension; B95.2 Enterococcus as the cause of diseases classified elsewhere; Z16.39 Resistance to other specified antimicrobial drug; R53.1 Weakness; F31.9 Bipolar disorder, unspecified; K21.9 Gastro-esophageal reflux disease without esophagitis; N35.82 Other urethral stricture, female; Z96.651 Presence of right artificial knee joint; Z79.82 Long term (current) use of aspirin; Z79.51 Long term (current) use of inhaled steroids; Z79.899 Other long term (current) drug therapy; Z88.1 Allergy status to other antibiotic agents; Z88.2 Allergy status to sulfonamides; Z88.8 Allergy status to other drugs, medicaments and biological substances; Z82.0 Family history of epilepsy and other diseases of the nervous system; Z82.5 Family history of asthma and other chronic lower respiratory diseases; Z87.891 Personal history of nicotine dependence
CPT/HCPCS: 36415; 74018; 80048; 80053; 81003; 81015; 82040; 82330; 82550; 83735; 84100; 84134; 85027; 87077; 87086; 87186; 94640; 94660; A9270-GY; G8978-GP-CK; G8979-GP-CJ; J1644; J2405; J3475; J3480

== ENCOUNTER 2018-12-08 19:07 | Emergency (ER) | payer MEDICARE ==
--- NOTE | 2018-12-08 20:27 | ED ---
GI/ HPI - HPI Summary HPI Summary: Per patient complains of chronic indwelling urinary catheter falling out today. Patient complains of some burning with urination, but states it only happened once. Patient currently taking Macrobid for UTI. Denies any other symptoms, pain or injury at this time. - History of Current Complaint Chief Complaint: EDUrogenitalProblems Time Seen by Provider: 12/08/18 19:59 Stated Complaint: CATHETER FELL OUT PER Hx Obtained From: Patient, Family/Economic Consultant Onset/Duration: Started Hours Ago Current Severity: None Pain Intensity: 0 Pain Characteristics: Burning Aggravating Factor(s): Nothing Alleviating Factor(s): Nothing - Additional Pertinent History Primary Care Physician: PATSY - Allergy/Home Medications Allergies/Adverse Reactions: Allergies Allergy/AdvReac Type Severity Reaction Status Date / Time amoxicillin [From Augmentin] Allergy Rash Verified 12/08/18 19:13 clarithromycin Allergy Rash Verified 12/08/18 19:13 clavulanic acid Allergy Rash Verified 12/08/18 19:13 [From Augmentin] moxifloxacin Allergy Rash Verified 12/08/18 19:13 Sulfa (Sulfonamide Allergy Rash Verified 12/08/18 19:13 Antibiotics) PMH/Surg Hx/FS Hx/Imm Hx Endocrine/Hematology History: Reports: Hx Thyroid Disease - [place] induced parathyroidism Denies: Hx Anticoagulant Therapy, Hx Diabetes, Hx Systemic Lupus Erythematosus Cardiovascular History: Denies: Hx Congestive Heart Failure, Hx Hypertension, Hx Pacemaker/ICD Respiratory History: Reports: Hx Chronic Obstructive Pulmonary Disease (COPD) Denies: Hx Asthma GI History: Denies: Hx Ulcer History: Reports: Other Problems/Disorders - neurogenic bladder, urethral stricture Denies: Hx Dialysis, Hx Renal Disease Musculoskeletal History: Reports: Hx Arthritis - RIGHT KNEE, Hx Orthopedic Injury, Other Musculoskeletal History - osteoarthritis, r hand ORIF, R TKR Denies: Hx Rheumatoid Arthritis, Hx Osteoporosis Comment Only: Hx Tendonitis - Osteoarthritis Sensory History: Reports: Hx Cataracts - not with Pt., Hx Deafness - Left ear Denies: Hx Contacts or Glasses, Hx Hearing Aid Opthamlomology History: Reports: Hx Cataracts - not with Pt. Denies: Hx Contacts or Glasses EENT History: Denies: Hx Deafness Neurological History: Reports: Hx Dementia, Other Neuro Impairments/Disorders - Parkinsons Psychiatric History: Reports: Hx Anxiety, Hx Depression, Hx Bipolar Disorder Denies: Hx Attention Deficit Hyperactivity Disorder, Hx Eating Disorder, Hx Panic Disorder, Hx Post Traumatic Stress Disorder, Hx Inpatient Treatment, Hx Community Mental Health Tx, Hx Schizophrenia, Hx Suicide Attempt, Hx of Violent Episodes Against Others, Hx Substance Abuse, Other Psychiatric Issues/Disorders - Cancer History Hx Chemotherapy: No Hx Radiation Therapy: No - Surgical History Surgery Procedure, Year, and Place: RIGHT KNEE REPLACEMENT 2012. LEFT OOPHERECTOMY 20 +YRS AGO. ORIF R HAND [facility] 10 Hx Anesthesia Reactions: No - Immunization History Date of Tetanus Vaccine: utd Date of Influenza Vaccine: fall 2017 Infectious Disease History: No Infectious Disease History: Denies: Hx Clostridium Difficile, Hx Hepatitis, Hx Human Immunodeficiency Virus (HIV), Hx of Known/Suspected MRSA, Hx Shingles, Hx Tuberculosis, Hx Known/ Suspected VRE, Hx Known/Suspected VRSA, History Other Infectious Disease, Traveled Outside the [place] in Last 30 Days - Family History Known Family History: Positive: Cardiac Disease, Respiratory Disease Negative: Renal Disease - Social History Alcohol Use: None Hx Substance Use: No Substance Use Type: Reports: None Hx Tobacco Use: Yes Smoking Status (MU): Former Smoker Type: Cigarettes Amount Used/How Often: patient states smoked 1 ppd Length of Time of Smoking/Using Tobacco: patient does not remember Have You Smoked in the Last Year: No Review of Systems Constitutional: Negative Eyes: Negative ENT: Negative Cardiovascular: Negative Respiratory: Negative Gastrointestinal: Negative Positive: burning Musculoskeletal: Negative Skin: Negative Neurological: Negative Psychological: Normal All Other Systems Reviewed And Are Negative: Yes Physical Exam - Summary Physical Exam Summary: Abdomen soft nontender. Triage Information Reviewed: Yes Vital Signs On Initial Exam: Initial Vitals Temp Pulse Resp BP Pulse Ox 98.1 F 59 12 137/79 95 12/08/18 19:10 12/08/18 19:10 12/08/18 19:10 12/08/18 19:10 12/08/18 19:10 Vital Signs Reviewed: Yes Appearance: Positive: Well-Appearing Skin: Positive: Warm Head/Face: Positive: Normal Head/Face Inspection Eyes: Positive: Normal Neck: Positive: Supple Respiratory/Lung Sounds: Positive: Clear to Auscultation Cardiovascular: Positive: Normal Abdomen Description: Positive: Nontender Musculoskeletal: Positive: Normal Neurological: Positive: Normal Psychiatric: Positive: Normal AVPU Assessment: Alert - Belkys Coma Scale Best Eye Response: 4 - Spontaneous Best Motor Response: 6 - Obeys Commands Best Verbal Response: 5 - Oriented Coma Scale Total: 15 Diagnostics - Vital Signs Vital Signs Temp Pulse Resp BP Pulse Ox 12/08/18 19:10 98.1 F 59 12 137/79 95 - Laboratory Lab Statement: Any lab studies that have been ordered have been reviewed, and results considered in the medical decision making process. GIGU Course/Dx - Course Course Of Treatment: Per patient complains of chronic indwelling urinary catheter falling out today. Patient complains of some burning with urination, but states it only happened once. Patient currently taking Macrobid for UTI. Denies any other symptoms, pain or injury at this time. Vital signs within normal limits. Urine negative for UTI. Urinary catheter replaced. - Diagnoses Provider Diagnoses: Catheter (urine) change required Discharge - Sign-Out/Discharge Documenting (check all that apply): Patient Departure Patient Received Moderate/Deep Sedation with Procedure: No - Discharge Plan Condition: Stable Disposition: HOME Patient Education Materials: Capellan Catheter Removal (DC) Referrals: Angela eLal MD [Primary Care Provider] - Additional Instructions: Follow-up with primary care. - Billing Disposition and Condition Condition: STABLE Disposition: Home
[2018-12-08 21:08] LABS: Urine Appearance Clear; Urine Bilirubin Negative (Negative); Urine Blood Negative (Negative); Urine Color Yellow; Urine Glucose Negative (Negative); Urine Ketones Trace (Negative); Urine Nitrite Negative (Negative); Urine Protein Negative (Negative); Urine Specific Gravity 1.005 (1.010-1.030); Urine Urobilinogen Negative (Negative)
[2018-12-08 21:32] VITALS: BP 114/81
== END 2018-12-08 21:31 | disposition home or self-care (01) ==
LOC: ED 19:07
DX: Z46.6 Encounter for fitting and adjustment of urinary device (principal); E07.9 Disorder of thyroid, unspecified; J44.9 Chronic obstructive pulmonary disease, unspecified; Z87.891 Personal history of nicotine dependence; Z88.1 Allergy status to other antibiotic agents; Z88.2 Allergy status to sulfonamides
CPT/HCPCS: 81003; 99282

== ENCOUNTER 2018-12-24 07:21 | Emergency (ER) | payer MEDICARE ==
[2018-12-24] MEDS ORDERED: NS 0.9% 1000 ML** 1,000 ML IV ONE ×2 (07:53→13:22)
[2018-12-24] MEDS ORDERED: PROCHLORPERAZINE INJ 5 MG/ML 2 ML VIAL IV ONE (07:53)
--- NOTE | 2018-12-24 07:54 | ED ---
Abdominal Pain/Female - HPI Summary HPI Summary: Pt. is a 73 y.o female who presents to the ER with her for N/V and epigastric pain since yesterday. Pt. with a hx of parkinson disease. She has an indwelling espinoza. Pt. was admitted last week for intractable vomiting and constipation. notes she has been having normal BM since on bowel regiment. notes this N/V has been an issue for pt. for months. No associated sxs of fever, cp, sob. Pt. has been taking zofran with minimal improvement. Pt. has an EGD performed at last admission which was relatively unremarkable. Sxs are moderate in severity. No current modifying factors. - History of Current Complaint Chief Complaint: EDAbdPain Stated Complaint: DEHYDRATED PER Time Seen by Provider: 12/24/18 07:45 Hx Obtained From: Patient, Family/Director Sales And Marketing Pain Intensity: 8 Allergies/Adverse Reactions: Allergies Allergy/AdvReac Type Severity Reaction Status Date / Time amoxicillin [From Augmentin] Allergy Rash Verified 12/24/18 07:37 clarithromycin Allergy Rash Verified 12/24/18 07:37 clavulanic acid Allergy Rash Verified 12/24/18 07:37 [From Augmentin] moxifloxacin Allergy Rash Verified 12/24/18 07:37 Sulfa (Sulfonamide Allergy Rash Verified 12/24/18 07:37 Antibiotics) PMH/Surg Hx/FS Hx/Imm Hx Previously Healthy: Yes Endocrine/Hematology History: 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 Denies: Hx Anticoagulant Therapy, Hx Diabetes, Hx Systemic Lupus Erythematosus Cardiovascular History: Denies: Hx Congestive Heart Failure, Hx Hypertension, Hx Pacemaker/ICD Respiratory History: Reports: Hx Chronic Obstructive Pulmonary Disease (COPD) Denies: Hx Asthma GI History: Denies: Hx Ulcer History: Reports: Other Problems/Disorders - neurogenic bladder, urethral stricture Denies: Hx Dialysis, Hx Renal Disease Musculoskeletal History: Reports: Hx Arthritis - RIGHT KNEE, Hx Orthopedic Injury, Other Musculoskeletal History - osteoarthritis, r hand ORIF, R TKR Denies: Hx Rheumatoid Arthritis, Hx Osteoporosis Comment Only: Hx Tendonitis - Osteoarthritis Sensory History: Reports: Hx Cataracts - not with Pt. Denies: Hx Contacts or Glasses, Hx Deafness, Hx Hearing Aid Opthamlomology History: Reports: Hx Cataracts - not with Pt. Denies: Hx Contacts or Glasses Neurological History: Reports: Hx Dementia, Other Neuro Impairments/Disorders - Parkinsons Psychiatric History: Reports: Hx Anxiety, Hx Depression, Hx Bipolar Disorder Denies: Hx Attention Deficit Hyperactivity Disorder, Hx Eating Disorder, Hx Panic Disorder, Hx Post Traumatic Stress Disorder, Hx Inpatient Treatment, Hx Community Mental Health Tx, Hx Schizophrenia, Hx Suicide Attempt, Hx of Violent Episodes Against Others, Hx Substance Abuse, Other Psychiatric Issues/Disorders - Cancer History Hx Chemotherapy: No Hx Radiation Therapy: No - Surgical History Surgery Procedure, Year, and Place: RIGHT KNEE REPLACEMENT 2012. LEFT OOPHERECTOMY 20 +YRS AGO. ORIF R HAND [facility] Hx Anesthesia Reactions: No - Immunization History Date of Tetanus Vaccine: utd Date of Influenza Vaccine: fall 2017 Infectious Disease History: No Infectious Disease History: Denies: Hx Clostridium Difficile, Hx Hepatitis, Hx Human Immunodeficiency Virus (HIV), Hx of Known/Suspected MRSA, Hx Shingles, Hx Tuberculosis, Hx Known/ Suspected VRE, Hx Known/Suspected VRSA, History Other Infectious Disease, Traveled Outside the [place] in Last 30 Days - Family History Known Family History: Positive: Cardiac Disease, Respiratory Disease, Non- Contributory Negative: Renal Disease - Social History Occupation: Retired Lives: With Family Alcohol Use: None Hx Substance Use: No Substance Use Type: Reports: None Hx Tobacco Use: Yes Smoking Status (MU): Former Smoker Type: Cigarettes Amount Used/How Often: patient states smoked 1 ppd Length of Time of Smoking/Using Tobacco: patient does not remember Have You Smoked in the Last Year: No Review of Systems Constitutional: Negative Negative: Fever, Chills ENT: Negative Cardiovascular: Negative Negative: Palpitations, Chest Pain Respiratory: Negative Negative: Shortness Of Breath, Cough Positive: Abdominal Pain, Vomiting. Negative: Diarrhea Genitourinary: Negative Neurological: Negative All Other Systems Reviewed And Are Negative: Yes Physical Exam Triage Information Reviewed: Yes Vital Signs On Initial Exam: Initial Vitals Temp Pulse Resp BP Pulse Ox 98.6 F 86 16 125/83 90 12/24/18 07:22 12/24/18 07:22 12/24/18 07:22 12/24/18 07:22 12/24/18 07:22 Vital Signs Reviewed: Yes Appearance: Positive: Thin - Pt. lying in bed in NAD. Appears chronically ill. present. Answers questions appropriately. Skin: Positive: Warm, Dry Head/Face: Positive: Normal Head/Face Inspection Eyes: Positive: Normal, EOMI ENT: Positive: Other - Oral mucosa is dry. Neck: Positive: Supple Respiratory/Lung Sounds: Positive: Clear to Auscultation, Breath Sounds Present Cardiovascular: Positive: Normal, RRR Abdomen Description: Positive: Nontender, Soft Neurological: Positive: Normal, CN Intact II-III Psychiatric: Positive: Affect/Mood Appropriate Diagnostics - Vital Signs Vital Signs Temp Pulse Resp BP Pulse Ox 12/24/18 07:22 98.6 F 86 16 125/83 90 - Laboratory Result Diagrams: 12/24/18 08:05 12/24/18 08:05 Lab Statement: Any lab studies that have been ordered have been reviewed, and results considered in the medical decision making process. Abdominal Pain Fem Course/Dx - Course Course Of Treatment: Pt. presenting with ongoing N/V. She is afebrile with stable VS. She has been taking zofran at home without improvement. IV started. Will try a dose of compazine. ECG done at 09 shows a sinus bradycardia of 59 bpm, no STEMI. CXR negative per radiology. Abd. pain shows stool withtout signs of obstruction per radiology. Labs show chronic anemia. Lipase and alk phos minimally elevated. Urinalysis is contaminated, we'll send for culture. Reexamination patient is sleeping comfortably. Results were discussed with her . After Compazine patient is very subdued and and sleeping soundly. Vital signs stayed stable. Patient chronically wears O2 intermittently at home. After several hours of observation patient arroused and is up in bed talking. She notes nausea and vomiting is better and she was able to water and crackers. Scheduled dose of carbidopa levodopa given. Patient has had no further vomiting in the emergency department. Patient's notes that she was prescribed scopolamine patches and passes helped with her vomiting, we will write a prescription today. Strongly advised patient to follow up closely with GI wanted to return to ER if vomiting returns. Family understands and agrees with plan. - Diagnoses Differential Diagnosis: Positive: Bowel Obstruction, Constipation, Pancreatitis , Peptic Ulcer Disease, Urinary Tract Infection Provider Diagnoses: Nausea & vomiting Discharge ED - Sign-Out/Discharge Documenting (check all that apply): Patient Departure Patient Received Moderate/Deep Sedation with Procedure: No - Discharge Plan Condition: Improved Disposition: HOME Prescriptions: Scopolamine 1.5 mg* PATCH* [Transderm-Scop 1.5 mg Patch*] 1 patch TRANSDERM Q72H #10 patch Patient Education Materials: Acute Nausea and Vomiting (ED) Referrals: Abner Ragsdale DO [Doctor of Osteopathy] - Angela Leal MD [Primary Care Provider] - Additional Instructions: Call the GI office today for a close follow up appointment Use scopolamine patch as directed Take home medications as directed Encourage fluids Return to ER if symptoms change or worsen - Billing Disposition and Condition Condition: IMPROVED Disposition: Home
[2018-12-24 08:19] LABS: ABS Eosinophils 0.2 10^3/ul (0-0.6); ABS Lymphocytes 0.8 10^3/ul (1.0-4.8); ABS Monocytes 0.4 10^3/ul (0-0.8); ABS Neutrophils 6.3 10^3/ul (1.5-7.7); Eosinophil % 2.2 %; Hematocrit 29 % (35-47); Hemoglobin 9.8 g/dL (12.0-16.0); Lymphocyte % 10.5 %; Mean Corpuscular HGB Conc 34 g/dL (31-36); Mean Corpuscular Hemoglobin 30 pg (27-31); Mean Corpuscular Volume 91 fL (80-97); Mean Platelet Volume 10.2 fL (7.4-10.4); Nucleated Red Blood Cells % 0.1; Platelet Count 290 10^3/uL (150-450); Red Blood Count 3.24 10^6 /uL (3.70-4.87); Red Cell Distribution Width 16 % (10-15); White Blood Count 7.8 10^3/uL (3.5-10.8)
[2018-12-24 08:38] LABS: ALT < 3 U/L (7-52); AST 4 U/L (13-39); Albumin 3.8 g/dL (3.2-5.2); Albumin/Globulin Ratio 2.1 (1-3); Alkaline Phosphatase 136 U/L (34-104); Anion Gap 5 mmol/L (2-11); BUN/Creatinine Ratio 7.4 (8-20); Blood Urea Nitrogen 6 mg/dL (6-24); C Reactive Protein 1.77 mg/L (<8.01); CO2 Carbon Dioxide 28 mmol/L (22-32); Calcium 10.3 mg/dL (8.6-10.3); Chloride 106 mmol/L (101-111); EGFR African American 84.3 (>60); EGFR Non-African American 69.7 (>60); Globulin 1.8 g/dL (2-4); Glucose 107 mg/dL (70-100); Potassium 3.5 mmol/L (3.5-5.0); Sodium 139 mmol/L (135-145); Total Protein 5.6 g/dL (6.4-8.9)
[2018-12-24 10:00] LABS: Urine Appearance Cloudy; Urine Bacteria 1+ (Absent); Urine Bilirubin Negative (Negative); Urine Blood Negative (Negative); Urine Color Yellow; Urine Glucose Negative (Negative); Urine Ketones Negative (Negative); Urine Nitrite Negative (Negative); Urine Protein Negative (Negative); Urine Red Blood Cell 1+(3-5/hpf) (Absent); Urine Specific Gravity 1.004 (1.010-1.030); Urine Squamous Epithelial Cell Present (Absent); Urine Urobilinogen Negative (Negative); Urine White Blood Cell 3+(>20/hpf) (Absent)
[2018-12-24] MEDS ORDERED: Carbidopa/Levodop 25/100 MG TAB(*) PO ONE (14:46)
[2018-12-24 15:51] VITALS: BP 152/87
--- NOTE | 2018-12-27 12:12 | PN ---
Progress Note - Progress Note Date of Service: 12/24/18 Note: Urine culture growing 75-100k enterococcus faecalis. Pt. with indwelling catheter. Pt. was afebrile with normal WBC. No urinary sxs. Case discussed with Dr. Abbott who recommends NO treatment at this time.
== END 2018-12-24 15:50 | disposition home or self-care (01) ==
LOC: ED 07:21
DX: R11.2 Nausea with vomiting, unspecified (principal); J44.9 Chronic obstructive pulmonary disease, unspecified; F41.9 Anxiety disorder, unspecified; F31.9 Bipolar disorder, unspecified; Z87.891 Personal history of nicotine dependence; Z79.82 Long term (current) use of aspirin; Z79.899 Other long term (current) drug therapy; Z88.1 Allergy status to other antibiotic agents; Z88.2 Allergy status to sulfonamides
CPT/HCPCS: 36415; 71045; 74019; 80053; 81003; 81015; 83605; 83690; 83735; 84484; 85025; 86140; 87077; 87086; 87186; 93005; 96361; 96374; 99285; A9270-GY; J0780

== ENCOUNTER 2018-12-30 09:55 | Inpatient (IN) | payer MEDICARE ==
--- NOTE | 2018-12-30 10:41 | ED ---
GI/ HPI - HPI Summary HPI Summary: This pt is a 73 y/o female presenting to [facility] c/o nausea and vomiting for the past 2 days. Per aide, nausea and vomiting has been going on for the past 2 months intermittently. reports pt has been admitted to the hospital about 4 times now for the same symptoms. Pt has had work up done including endoscopy, CT, MRI. Pt was also discharged from the hospital 4 days ago with Zofran but per it does not help with nausea and vomiting. reports pt is unable to swallow her medications secondary to vomiting. Per , pt has a lot of medications to take. Aide states pt has decreased PO intake and is vomiting everything including water. Pt also c/o abd pain which she rates 4/10 in severity. is living at [place] and is looking for a [place] [facility] [place] where pt can be taken care of. PMHx: Parkinson's (diagnosed 3.5 years ago for which she takes Levodopa), urinary retention, COPD. Pt has a espinoza. She wears 2L of oxygen at home at baseline. Her PCP is Dr. Angela Leal and pt has an appointment today at 1600. - History of Current Complaint Chief Complaint: EDNauseaVomitDiarrh Time Seen by Provider: 12/30/18 10:13 Stated Complaint: NOT EATING VOMITTING PER HU Hx Obtained From: Patient, Family/Cyber Legal Advisor - and Aide Onset/Duration: Started Days Ago, Still Present Timing: Lasting Days Current Severity: Moderate Pain Intensity: 4 Location of Pain: Diffuse Associated Signs and Symptoms: Positive: Nausea, Vomiting. Negative: Fever, Chills Aggravating Factor(s): Nothing Alleviating Factor(s): Nothing - Additional Pertinent History Primary Care Physician: [id number] - Allergy/Home Medications Allergies/Adverse Reactions: Allergies Allergy/AdvReac Type Severity Reaction Status Date / Time amoxicillin [From Augmentin] Allergy Rash Verified 12/24/18 07:37 clarithromycin Allergy Rash Verified 12/24/18 07:37 clavulanic acid Allergy Rash Verified 12/24/18 07:37 [From Augmentin] moxifloxacin Allergy Rash Verified 12/24/18 07:37 Sulfa (Sulfonamide Allergy Rash Verified 12/24/18 07:37 Antibiotics) PMH/Surg Hx/FS Hx/Imm Hx Endocrine/Hematology History: 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 Denies: Hx Anticoagulant Therapy, Hx Diabetes, Hx Systemic Lupus Erythematosus Cardiovascular History: Denies: Hx Congestive Heart Failure, Hx Hypertension, Hx Pacemaker/ICD Respiratory History: Reports: Hx Chronic Obstructive Pulmonary Disease (COPD) Denies: Hx Asthma GI History: Denies: Hx Ulcer History: Reports: Other Problems/Disorders - neurogenic bladder, urethral stricture Denies: Hx Dialysis, Hx Renal Disease Musculoskeletal History: Reports: Hx Arthritis - RIGHT KNEE, Hx Orthopedic Injury, Other Musculoskeletal History - osteoarthritis, r hand ORIF, R TKR Denies: Hx Rheumatoid Arthritis, Hx Osteoporosis Comment Only: Hx Tendonitis - Osteoarthritis Sensory History: Reports: Hx Cataracts - not with Pt. Denies: Hx Contacts or Glasses, Hx Deafness, Hx Hearing Aid Opthamlomology History: Reports: Hx Cataracts - not with Pt. Denies: Hx Contacts or Glasses Neurological History: Reports: Hx Dementia, Other Neuro Impairments/Disorders - Parkinsons Psychiatric History: Reports: Hx Anxiety, Hx Depression, Hx Bipolar Disorder Denies: Hx Attention Deficit Hyperactivity Disorder, Hx Eating Disorder, Hx Panic Disorder, Hx Post Traumatic Stress Disorder, Hx Inpatient Treatment, Hx Community Mental Health Tx, Hx Schizophrenia, Hx Suicide Attempt, Hx of Violent Episodes Against Others, Hx Substance Abuse, Other Psychiatric Issues/Disorders - Cancer History Hx Chemotherapy: No Hx Radiation Therapy: No - Surgical History Surgery Procedure, Year, and Place: RIGHT KNEE REPLACEMENT 2012. LEFT OOPHERECTOMY 20 +YRS AGO. ORIF R HAND [facility] Hx Anesthesia Reactions: No - Immunization History Date of Tetanus Vaccine: utd Date of Influenza Vaccine: fall 2017 Infectious Disease History: No Infectious Disease History: Denies: Hx Clostridium Difficile, Hx Hepatitis, Hx Human Immunodeficiency Virus (HIV), Hx of Known/Suspected MRSA, Hx Shingles, Hx Tuberculosis, Hx Known/ Suspected VRE, Hx Known/Suspected VRSA, History Other Infectious Disease, Traveled Outside the [place] in Last 30 Days - Family History Known Family History: Positive: Cardiac Disease, Respiratory Disease Negative: Renal Disease - Social History Alcohol Use: None Hx Substance Use: No Substance Use Type: Reports: None Hx Tobacco Use: Yes Smoking Status (MU): Former Smoker Type: Cigarettes Amount Used/How Often: patient states smoked 1 ppd Length of Time of Smoking/Using Tobacco: patient does not remember Have You Smoked in the Last Year: No Review of Systems Constitutional: Other - POSITIVE: decreased PO intake Negative: Fever, Chills Positive: Abdominal Pain, Vomiting, Nausea All Other Systems Reviewed And Are Negative: Yes Physical Exam - Summary Physical Exam Summary: GENERAL: Patient is a well-developed and nourished female who is lying comfortable in the stretcher. Patient is not in any acute respiratory distress. HEAD AND FACE: Normocephalic EYES: PERRLA, EOMI x 2. EARS: Hearing grossly intact. MOUTH: Oropharynx within normal limits. NECK: Supple, trachea is midline, no adenopathy, no JVD, no carotid bruit. CHEST: Symmetric, no tenderness at palpation LUNGS: Clear to auscultation bilaterally. No wheezing or crackles. CVS: Regular rate and rhythm, S1 and S2 present, no murmurs or gallops appreciated. ABDOMEN: Soft, non-tender. Bowel sounds are normal. No abnormal abdominal pulsations. EXTREMITIES: Full ROM in all major joints, no edema, no cyanosis or clubbing. NEURO: Alert and oriented x 3. No acute neurological deficits. Speech is normal and follows commands. SKIN: Dry and warm Triage Information Reviewed: Yes Vital Signs On Initial Exam: Initial Vitals Temp Pulse Resp BP Pulse Ox 98.7 F 82 18 154/87 93 12/30/18 09:56 12/30/18 09:56 12/30/18 09:56 12/30/18 09:56 12/30/18 09:56 Vital Signs Reviewed: Yes Diagnostics - Vital Signs Vital Signs Temp Pulse Resp BP Pulse Ox 12/30/18 09:56 98.7 F 82 18 154/87 93 - Laboratory Result Diagrams: 12/30/18 11:00 12/30/18 11:57 Lab Statement: Any lab studies that have been ordered have been reviewed, and results considered in the medical decision making process. - Radiology Chest XR Radiology Interpretation Completed By: Radiologist Summary of Radiographic Findings: IMPRESSION: Stigmata of obstructive lung disease and potentional pulmoanry arterial hypertension. No acute pulmonary or cardiac process evident. Dr. Peoples has reviewed this report. Abdomen XR Radiology Interpretation Completed By: Radiologist Summary of Radiographic Findings: IMPRESSION: Nonspecific bowel gas pattern. Dr. Peoples has reviewed this report. - EKG 11:01 Cardiac Rate: NL - at 78 bpm EKG Rhythm: Sinus Rhythm Ectopy: PVCs EKG Comparison: Other - Similar to prior EKG on 12/24/18. Summary of EKG Findings: Inverted T waves in anterior leads. Prolonged QT. GIGU Course/Dx - Course Assessment/Plan: Pt is a 73 y/o female presenting to [facility] c/o nausea and vomiting for the past 2 days. Per aide, nausea and vomiting has been going on for the past 2 months intermittently. Physical exam is unremarkable. Lab results significant for WBC of 12.5, AST of 5, ALT of <3, alkaline phosphatase of 177. Chest XR shows stigmata of obstructive lung disease and potentional pulmoanry arterial hypertension. No acute pulmonary or cardiac process evident. Abd XR shows Nonspecific bowel gas pattern. In the ED course the pt was given IV fluids, Zofran. Discussed the case with Dr. Elizalde, hospitalist, who accepted the pt for admission. I discussed results with patient. The patient agrees with this plan. - Diagnoses Provider Diagnoses: Dehydration, Vomiting, Failure to thrive - Physician Notifications Discussed Care Of Patient With: Hayley Elizalde - hospitalist Time Discussed With Above Provider: 12:02 Instructed by Provider To: Admit As Inpatient Discharge ED - Sign-Out/Discharge Documenting (check all that apply): Patient Departure - Admit to [facility] Patient Received Moderate/Deep Sedation with Procedure: No - Discharge Plan Condition: Stable Disposition: ADMITTED TO [facility] - Billing Disposition and Condition Condition: STABLE Disposition: Admitted to [facility] - Attestation Statements Document Initiated by Alphonso: Yes Documenting Scribe: Hayley Blank Provider For Whom Scribe is Documenting (Include Credential): Ayush Peoples MD Scribe Attestation: IHayley scribed for Ayush Peoples MD on 12/30/18 at 2051. Scribe Documentation Reviewed: Yes Provider Attestation: The documentation as recorded by the Hayley huynh accurately reflects the service I personally performed and the decisions made by me, Ayush Peoples MD Status of Scribe Document: Viewed
[2018-12-30] MEDS ORDERED: Ondansetron INJ* 2 MG/ML VIAL IV ONE (10:47)
[2018-12-30] MEDS ORDERED: NS 0.9% 1000 ML** 1,000 ML IV ONE (10:47)
[2018-12-30 11:12] LABS: ABS Lymphocytes 0.8 10^3/ul (1.0-4.8); ABS Monocytes 0.6 10^3/ul (0-0.8); ABS Neutrophils 11.1 10^3/ul (1.5-7.7); Eosinophil % 0.2 %; Hematocrit 36 % (35-47); Hemoglobin 11.8 g/dL (12.0-16.0); Lymphocyte % 6.1 %; Mean Corpuscular HGB Conc 33 g/dL (31-36); Mean Corpuscular Hemoglobin 30 pg (27-31); Mean Corpuscular Volume 90 fL (80-97); Mean Platelet Volume 10.6 fL (7.4-10.4); Platelet Count 408 10^3/uL (150-450); Red Blood Count 3.97 10^6 /uL (3.70-4.87); Red Cell Distribution Width 17 % (10-15); White Blood Count 12.5 10^3/uL (3.5-10.8)
[2018-12-30 11:39] LABS: ALT < 3 U/L (7-52); Albumin 4.4 g/dL (3.2-5.2); Alkaline Phosphatase 177 U/L (34-104); BUN/Creatinine Ratio 10.1 (8-20); Blood Urea Nitrogen 8 mg/dL (6-24); CO2 Carbon Dioxide 27 mmol/L (22-32); Calcium 11.7 mg/dL (8.6-10.3); Chloride 105 mmol/L (101-111); EGFR African American 86.8 (>60); EGFR Non-African American 71.7 (>60); Globulin 2.2 g/dL (2-4); Glucose 114 mg/dL (70-100); Sodium 138 mmol/L (135-145); Total Protein 6.6 g/dL (6.4-8.9)
[2018-12-30 11:42] LABS: Anion Gap 6 mmol/L (2-11)
[2018-12-30 11:58] LABS: T4, Total 7.54 mcg/dL (6.09-12.23)
[2018-12-30 12:02] LABS: TSH (Thyroid Stimulating Horm) 0.93 mcIU/mL (0.34-5.60)
[2018-12-30 12:24] LABS: Potassium Redraw 4.3 mmol/L (3.5-5.0)
[2018-12-30] MEDS ORDERED: Bisacodyl SUPP* 10 MG SUPP PR PRN (13:37)
[2018-12-30] MEDS: clonazePAM TAB(*) 0.5 MG PO SCH ×2 (14:20→23:48)
[2018-12-30] MEDS: CARBIDOPA PO SCH ×2 (14:20→19:18)
[2018-12-30] MEDS: LEVODOPA PO SCH ×2 (14:20→19:18)
[2018-12-30] MEDS: Scopolamine 1.5 mg* PATCH TRANSDERM SCH (14:23)
[2018-12-30] MEDS: NS 0.9% 1000 ML** 1,000 ML IV SCH (15:33)
[2018-12-30] MEDS: Cinacalcet TAB* 30 MG PO SCH (17:17)
[2018-12-30] MEDS: Sucralfate SUSP 1 GM/10 ml 10 ML UDC PO SCH (17:19)
[2018-12-30] MEDS: Mometasone/Formoter 200/5 MDI INH SCH (19:56)
[2018-12-30 20:32] LABS: Urine Appearance Turbid; Urine Bacteria 1+ (Absent); Urine Bilirubin Negative (Negative); Urine Blood 1+ (Negative); Urine Color Yellow; Urine Glucose Negative (Negative); Urine Ketones Trace (Negative); Urine Nitrite Negative (Negative); Urine Protein Negative (Negative); Urine Red Blood Cell 1+(3-5/hpf) (Absent); Urine Specific Gravity 1.005 (1.010-1.030); Urine Urobilinogen Negative (Negative); Urine White Blood Cell 3+(>20/hpf) (Absent)
[2018-12-30] MEDS: Heparin VIAL(*) 5000 UNITS/ML VIAL (FIVE THOUSAND) SUBCUT SCH (22:37)
--- NOTE | 2018-12-30 22:39 | HP ---
CC: Dr. Angela Leal * HISTORY AND PHYSICAL: DATE OF ADMISSION: 12/30/18 PROVIDER: Char Mclaughlin NP. PRIMARY CARE PROVIDER: Dr. Angela Leal. ATTENDING PHYSICIAN WHILE IN THE HOSPITAL: Dr. Hayley Elizalde * (dictated by Char Mclaughlin NP). CHIEF COMPLAINT: Nausea, vomiting, constipation. HISTORY OF PRESENT ILLNESS: Ms. Nelson is a 73-year-old female with past medical history significant for Parkinson's, bipolar, depression, anxiety, neurogenic bladder with chronic Capellan, urethral stricture, frequent UTIs, COPD, hyperparathyroidism, and hypercalcemia, who presented to the emergency room with complaints of vomiting since Sunday afternoon, unable to keep anything down, unable to take her Sinemet x24 hours, though the patient's does report that she did take her Sinemet last night at 5 p.m. He does report no food x1 day. The caregiver and the also report that she continues to have issues with constipation. They do report that she had a small bowel movement on Sunday and a tiny bowel movement yesterday. The patient denies any black or tarry stools. She denies any vomiting of blood. The patient was recently admitted in the end of November again for constipation, nausea, and vomiting at that time. The home care music therapist does report that they have tried several [id number] remedies for her constipation but with no relief. The patient does report that she has upper epigastric pain and some mild suprapubic pain with palpation. Does report nausea and vomiting, but has not vomited since being in the emergency room. While in the emergency room, the patient had routine lab work drawn. She was found to have a white count of 12.5 with no other acute abnormalities. Troponins were within normal limits x3. Given her continued vomiting, Hospital Medicine was asked to see in consult for admission. PAST MEDICAL HISTORY: The patient has a past medical history significant for: 1. Parkinson's. 2. Bipolar. 3. Depression. 4. Anxiety. 5. Neurogenic bladder. 6. History of urethral stricture with frequent UTIs, now with chronic Capellan. 7. Myotonic cognitive impairment. 8. COPD with p.r.n. use of O2 via nasal cannula. 9. Hyperparathyroidism. 10. Chronic hypercalcemia secondary to lithium. PAST SURGICAL HISTORY: 1. Right total knee replacement. 2. Oophorectomy. 3. Right hand surgery with open reduction internal fixation. HOME MEDICATIONS: 1. Carbidopa/levodopa 25/100 three tabs at 0831 and 1830. 2. Symbicort 2 puffs b.i.d. 3. Dulcolax suppository 10 mg daily p.r.n. constipation. 4. Aspirin 81 mg p.o. daily. 5. Vitamin B12 500 mcg p.o. b.i.d. 6. Sensipar 30 mg p.o. b.i.d. with meals. 7. [place] carbonate 300 mg p.o. b.i.d. 8. Probiotic 1 cap p.o. daily. 9. Docusate 100 mg p.o. b.i.d. 10. Omeprazole 40 mg p.o. q.a.m. 11. Remeron 15 mg p.o. at bedtime. 12. Magnesium oxide 400 mg p.o. daily. 13. MiraLAX 17 g p.o. daily. 14. Zofran 4 mg every 6 hours as needed for nausea. 15. Scopolamine patch 1.5 mg 1 transdermally every 72 hours. 16. Propranolol 10 mg p.o. q.a.m. 17. Tamsulosin 0.4 mg p.o. at bedtime. 18. Sertraline 150 mg p.o. q.a.m. 19. Lamictal 100 mg p.o. b.i.d. 20. Clonazepam 0.5 mg p.o. t.i.d. 21. Spiriva 1 cap inhaled daily. ALLERGIES: She has an allergy to AMOXICILLIN, CLARITHROMYCIN, AUGMENTIN, MOXIFLOXACIN, and SULFA. FAMILY HISTORY: No reported history of coronary artery disease, diabetes, or cancer within the family. 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 She lives with her . She has a 72-axgg-ruth history of smoking. She quit in 2012. She denies any alcohol or illicit drug use. The patient has 24-hour aide care at home. She is a full code, healthcare proxy is her or her son. REVIEW OF SYSTEMS: The patient denies any fever. She does report weight loss in the past 2 to 3 months. She denies chest pain or edema. No cough, hemoptysis, or shortness of breath. She does report some nausea and vomiting. No diarrhea. She does report epigastric pain and suprapubic pain. She denies any hematuria or dysuria. She denies any focal weakness or sensory loss. She does complain of generalized weakness and decreased mobility. Denies any visual complaints, dysphagia, arthralgias, myalgias, rashes, or lesions. She denies any psychosis or anxiety. PHYSICAL EXAMINATION GENERAL: At this time, Ms. Nelson is a 73-year-old female. Se is alert and oriented, resting on the stretcher in the emergency room. She is in no acute distress. VITAL SIGNS: Temperature was 98.7, heart rate 75, blood pressure 153/81, respirations are 18, O2 saturation 94%. HEENT: Head is atraumatic, normocephalic. Eyes: EOMs are intact. Sclerae anicteric and not pale. Oral mucosa appeared to be moist. NECK: Supple. LUNGS: Clear to auscultation bilaterally. No wheezes, rales, or rhonchi. CARDIAC: S1, S2. Regular rate and rhythm. ABDOMEN: She does have upper epigastric tenderness with palpation and mild suprapubic tenderness with palpation. Bowel sounds are active x4. MUSCULOSKELETAL: She is able to move all 4 extremities. Pedal pulses are +2 bilaterally. There is no clubbing or cyanosis. NEUROLOGIC: She is awake, alert, oriented x3. Speech is clear but soft. Thought process is intact. There are no gross focal deficits. SKIN: Intact. DIAGNOSTIC STUDIES/LAB DATA: WBCs 12.5, RBCs 3.97, hemoglobin 11.8, hematocrit 36, platelet count 408,000. Sodium 138, potassium 4.3, chloride 105, carbon dioxide 27, anion gap of 6, BUN was 8, creatinine 0.79, glucose 114, lactic acid 1.3, calcium was 11.7, magnesium was 2.0. AST was 5, ALT was less than 3, alkaline phosphatase was 177. Troponin was 0.00 x2. BNP was 38. TSH was 0.93. She had an electrocardiogram which showed sinus rhythm with a PVC, rate of 78 with inverted T waves in V1, V2, and V3, which are consistent with previous EKG dated 12/24/18. She had an abdominal x-ray, radiologist's impression: Nonspecific bowel gas pattern, moderate amount of stool within the distal colon. She did have a chest x-ray, radiologist, impression: Stigmata of obstructive lung disease, potential pulmonary arterial hypertension, no acute pulmonary or cardiac process is evident. ASSESSMENT AND PLAN: Ms. Nelson is a 73-year-old female with past medical history significant for Parkinson's, bipolar depression, anxiety, neurogenic bladder with chronic Capellan placement, recurrent urinary tract infection, chronic obstructive pulmonary disease, hyperparathyroidism, hypercalcemia, who presented to the emergency room with complaints of nausea and vomiting since Sunday. The patient had recently been seen and treated for the same at the end of November. She will be admitted under observation for: 1. Nausea and vomiting. I will place her on IV fluids and normal saline at 75 cc per hour. I will order a scopolamine patch. I will give her some clear liquid diet p.o. challenge and resume her home medications. If the patient continues to have nausea and vomiting, we will consider consultation to GI at that time. 2. Parkinson's. The patient should continue on Sinemet as previously prescribed 3 tablets at 0831 and 1830. 3. History of bipolar and depression. She should continue on lithium, Zoloft, clonazepam, and Lamictal. 4. Chronic obstructive pulmonary disease. She should continue on Spiriva and Symbicort as previously prescribed. 5. Hypercalcemia. The patient should continue on cinacalcet 30 mg p.o. b.i.d. 6. Constipation. The patient does have a large amounts of stool noted in the colon. I will give her soapsuds enema. We will continue on her home regimen for bowel management with MiraLAX, Dulcolax as needed, Colace. 7. FEN. She can have clear liquid diet. 8. Code status: She is a full code. 9. DVT prophylaxis: I will place her on heparin subcu. TIME SPENT: Time spent on this admission was 60 minutes, greater than half the time was spent at the bedside reviewing events leading thus far to her hospitalization, performing physical exam, and reviewing my plan of care. I have discussed this with my attending Dr. Hayley Elizalde. She is in agreement with my plan. CHAR MCLAUGHLIN, FINANCIAL SYSTEMS ADMINISTRATOR [id number]/[facility] #: [id number] NEMO
[2018-12-30] MEDS: Ondansetron INJ* 2 MG/ML VIAL IV PRN (23:13)
[2018-12-30] MEDS: lamoTRIgine TAB(*) 100 MG PO SCH (23:48)
[2018-12-30] MEDS: Mirtazapine TAB* 15 MG PO SCH (23:49)
[2018-12-30] MEDS: Docusate CAP* 100 MG PO SCH (23:49)
[2018-12-30] MEDS: CMCS: Lithium Carbonate ER (NF) 300 MG TAB.ER PO SCH (23:49)
[2018-12-31] MEDS: NS 0.9% 1000 ML** 1,000 ML IV SCH (05:51)
[2018-12-31 06:43] LABS: ABS Eosinophils 0.1 10^3/ul (0-0.6); ABS Monocytes 0.5 10^3/ul (0-0.8); ABS Neutrophils 9.5 10^3/ul (1.5-7.7); Eosinophil % 0.9 %; Hematocrit 26 % (35-47); Hemoglobin 8.5 g/dL (12.0-16.0); Lymphocyte % 9.1 %; Mean Corpuscular HGB Conc 33 g/dL (31-36); Mean Corpuscular Hemoglobin 30 pg (27-31); Mean Corpuscular Volume 89 fL (80-97); Mean Platelet Volume 10.3 fL (7.4-10.4); Platelet Count 283 10^3/uL (150-450); Red Blood Count 2.89 10^6 /uL (3.70-4.87); Red Cell Distribution Width 17 % (10-15); White Blood Count 11.2 10^3/uL (3.5-10.8)
[2018-12-31 07:10] LABS: BUN/Creatinine Ratio 9.9 (8-20); Calcium 9.6 mg/dL (8.6-10.3); EGFR African American 98.2 (>60); EGFR Non-African American 81.2 (>60); Potassium 4.1 mmol/L (3.5-5.0)
[2018-12-31] MEDS: Mometasone/Formoter 200/5 MDI INH SCH ×2 (08:20→20:12)
[2018-12-31] MEDS: CARBIDOPA PO SCH ×3 (08:42→18:07)
[2018-12-31] MEDS: LEVODOPA PO SCH ×3 (08:42→18:07)
[2018-12-31] MEDS: Sucralfate SUSP 1 GM/10 ml 10 ML UDC PO SCH ×3 (08:42→17:13)
[2018-12-31] MEDS ORDERED: Sertraline* 100 MG TAB PO SCH (09:00)
[2018-12-31] MEDS ORDERED: Pantoprazole TAB * 40 MG TAB PO SCH ×2 (09:00→18:30)
[2018-12-31] MEDS ORDERED: SPIRIVA Respimat* (tiotropium) 2.5 mcg/inh Inhaler INH SCH (09:00)
[2018-12-31] MEDS ORDERED: Magnesium CITRATE* 300 ML BTL PO ONE ×2 (10:27→20:27)
[2018-12-31] MEDS ORDERED: NS 0.9% 1000 ML** 1,000 ML IV SCH (10:29)
[2018-12-31] MEDS: CMCS: Lithium Carbonate ER (NF) 300 MG TAB.ER PO SCH ×2 (10:35→20:37)
[2018-12-31] MEDS: lamoTRIgine TAB(*) 100 MG PO SCH ×2 (10:35→20:36)
[2018-12-31] MEDS: Heparin VIAL(*) 5000 UNITS/ML VIAL (FIVE THOUSAND) SUBCUT SCH (10:42)
[2018-12-31] MEDS: clonazePAM TAB(*) 0.5 MG PO SCH ×3 (10:44→20:37)
[2018-12-31] MEDS: Docusate CAP* 100 MG PO SCH ×2 (10:45→20:36)
[2018-12-31] MEDS: Polyethylene Glycol 3350* 17 GM PACKET PO SCH (10:47)
[2018-12-31] MEDS: Cinacalcet TAB* 30 MG PO SCH ×2 (10:47→18:07)
--- NOTE | 2018-12-31 10:55 | PN ---
Subjective Date of Service: 12/31/18 Interval History: Patient reports 1 episode of vomiting last night. NO further episodes. Currently reports no nausea at this time. Denies chest pain or shortness of breath. c/o mild discomfort with palpation of her abd. Received soap suds enema - 300 return- loose stool dark brown and rn complex care updated on plan. Family History: Unchanged from Admission Social History: Unchanged from Admission Past Medical History: Unchanged from Admission Objective Active Medications: Aspirin (Aspirin Ec Tab*) 81 mg PO DAILY [facility] Bisacodyl (Dulcolax Supp*) 10 mg [place] DAILY PRN PRN Reason: CONSTIPATION Carbidopa/Levodopa (Carbidopa/Levodopa Odt (Nf)) 3 tab PO 0830,1300,1830 [facility] Last Admin: 12/31/18 08:42 Dose: 3 tab Cinacalcet (Sensipar Tab*) 30 mg PO BID WITH MEALS [facility] Last Admin: 12/31/18 10:47 Dose: Not Given Clonazepam (Klonopin Tab(*)) 0.5 mg PO TID [facility] Last Admin: 12/31/18 10:44 Dose: Not Given Docusate Sodium (Colace Cap*) 100 mg PO BID [facility] Last Admin: 12/31/18 10:45 Dose: Not Given Sodium Chloride (Ns 0.9% 1000 Ml) 1,000 mls @ 50 mls/hr IV PER RATE [facility] Stop: 01/01/19 06:28 Last Admin: 12/31/18 10:43 Dose: 50 mls/hr Lamotrigine (Lamictal Tab(*)) 100 mg PO BID [facility] Last Admin: 12/31/18 10:35 Dose: 100 mg [place] Carbonate ([place] Carbonate Er (Nf)) 300 mg PO BID [facility]; Protocol Last Admin: 12/31/18 10:35 Dose: 300 mg Mirtazapine (Remeron Tab*) 15 mg PO BEDTIME [facility] Last Admin: 12/30/18 23:49 Dose: 15 mg Mometasone Furoate/Formoterol Fumar (Dulera 200/5 Mdi*) 2 puff INH BID [facility]; Protocol Last Admin: 12/31/18 08:20 Dose: 2 puff Ondansetron HCl (Zofran Inj*) 4 mg IV Q6H PRN PRN Reason: NAUSEA Last Admin: 12/30/18 23:13 Dose: 4 mg Pantoprazole Sodium (Protonix Tab*) 40 mg PO 1830 [facility] Pharmacy Profile Note (Scopolamine Patch Remove*) 1 note PATCH OFF Q72H [facility] Polyethylene Glycol/Electrolytes (Miralax*) 17 gm PO DAILY [facility] Last Admin: 12/31/18 10:47 Dose: Not Given Propranolol HCl (Inderal Tab*) 10 mg PO QAM [facility] Scopolamine (Transderm-Scop 1.5 Mg Patch*) 1 patch TRANSDERM Q72H [facility] Last Admin: 12/30/18 14:23 Dose: 1 patch Sertraline HCl (Zoloft*) 150 mg PO 1130 [facility] Sucralfate (Sucralfate Susp) 1 gm PO AC [facility] Last Admin: 12/31/18 08:42 Dose: 1 gm Tiotropium [place] (Spiriva Respimat 2.5 Mcg) 1 puff INH DAILY [facility] Vital Signs - 8 hr 12/31/18 12/31/18 02:53 03:15 Temperature 98.1 F Pulse Rate 72 Respiratory 18 16 Rate Blood Pressure 130/88 (mmHg) O2 Sat by Pulse 100 Oximetry Oxygen Devices in Use Now: Nasal Cannula Appearance: alert, flat affect, thin, no acute distress Eyes: No Scleral Icterus Ears/Nose/Mouth/Throat: Clear Oropharnyx, Mucous Membranes Moist Neck: NL Appearance and Movements; NL JVP, Trachea Midline Respiratory: Symmetrical Chest Expansion and Respiratory Effort, Clear to Auscultation Cardiovascular: NL Sounds; No Murmurs; No JVD, No Edema Abdominal: NL Sounds; No Tenderness; No Distention Extremities: No Edema, No Clubbing, Cyanosis Skin: No Rash or Ulcers Neurological: Alert and Oriented x 3 Nutrition: Taking PO's Result Diagrams: 12/31/18 06:24 12/31/18 06:24 Assess/Plan/Problems-Billing Assessment: - Patient Problems (1) Nausea & vomiting Current Visit: Yes Status: Acute Code(s): R11.2 - NAUSEA WITH VOMITING, UNSPECIFIED SNOMED Code(s): 90432274 Comment: c/o n/v - 1 episode overnight of vomiting - will speak to GI for recommendations as this is an ongoing issue - Likely associated with constipation - continue scopolamine patch, zofran (2) Constipation Current Visit: No Status: Acute Code(s): K59.00 - CONSTIPATION, UNSPECIFIED SNOMED Code(s): 76409399 Comment: likely causing nausea and vomiting. -Likely from immobility and hypercalcemia (on presenation), Parkinsons, and medications. - will give magnesium citrate today - soap sasha enema with minimal return (3) Malnutrition Current Visit: Yes Status: Acute Code(s): E46 - UNSPECIFIED PROTEIN-CALORIE MALNUTRITION SNOMED Code(s): 88686435 Comment: Patient has had weight loss in the past 3 months- reported weight on 12/14 -127 Documented weight now 107 - nutritional consult placed - suspect that this is related to underlying n/v decreased appitite with associated constipation (4) Dehydration Current Visit: No Status: Acute Code(s): E86.0 - DEHYDRATION SNOMED Code(s ): 39460572 Comment: - will continue IVF x 1 more liter for now and reevaluate fluid status in the AM - patient is tolerating po fluids - will monitor I/O's (5) Neurogenic bladder Current Visit: No Status: Acute Code(s): N31.9 - NEUROMUSCULAR DYSFUNCTION OF BLADDER, UNSPECIFIED SNOMED Code(s): 588411469 Comment: - Continue Flomax. (6) Parkinson disease Current Visit: No Status: Acute Code(s): G20 - PARKINSON'S DISEASE SNOMED Code(s): 02022504 Comment: - cont Sinimet - ODT given recent nausea/vomiting. (7) Weakness Current Visit: No Status: Acute Priority: High Code(s): R53.1 - WEAKNESS SNOMED Code(s): 73475193 Comment: - appears frail -PT ordered (8) Bipolar disorder Current Visit: No Status: Chronic Priority: High Comment: stable Complex, rn long term care Psych follow up with Dr Torres. Continue [place], Lamotrigine, clonazepam, mirtazapine, sertraline . (9) COPD (chronic obstructive pulmonary disease) Current Visit: No Status: Chronic Priority: High Code(s): J44.9 - CHRONIC OBSTRUCTIVE PULMONARY DISEASE, UNSPECIFIED SNOMED Code(s): 78893150 Comment: asymptomatic - continue Spiriva, Symbicort (10) HTN (hypertension) Current Visit: No Status: Chronic Priority: High Code(s): I10 - ESSENTIAL (PRIMARY) HYPERTENSION SNOMED Code(s): 72431167 Comment: Controlled. Continue Inderall (11) Dementia Current Visit: No Status: Chronic Priority: High Code(s): F03.90 - UNSPECIFIED DEMENTIA WITHOUT BEHAVIORAL DISTURBANCE SNOMED Code(s): 13782105 Comment: Continue with supportive care, (12) DVT prophylaxis Current Visit: No Status: Acute Priority: Medium Code(s): WEH4004 - SNOMED Code(s): 322536581 Comment: - SCD's (13) Full code status Current Visit: No Status: Acute Code(s): Z78.9 - OTHER SPECIFIED HEALTH STATUS SNOMED Code(s): 542341247
[2018-12-31] MEDS: Propranolol TAB* 10 MG PO SCH (11:56)
[2018-12-31] MEDS: Aspirin EC TAB* 81 MG TAB.EC PO SCH (11:56)
[2018-12-31] MEDS: Sertraline* 100 MG TAB PO SCH (12:01)
[2018-12-31] MEDS: SPIRIVA Respimat* (tiotropium) 2.5 mcg/inh Inhaler INH SCH (13:28)
[2018-12-31] MEDS ORDERED: Acetaminophen TAB* 325 MG PO PRN (20:25)
[2018-12-31] MEDS: Mirtazapine TAB* 15 MG PO SCH (23:06)
[2019-01-01] MEDS: SPIRIVA Respimat* (tiotropium) 2.5 mcg/inh Inhaler INH SCH (08:11)
[2019-01-01] MEDS: Mometasone/Formoter 200/5 MDI INH SCH ×2 (08:11→19:56)
[2019-01-01] MEDS: lamoTRIgine TAB(*) 100 MG PO SCH ×2 (09:26→21:02)
[2019-01-01] MEDS: Propranolol TAB* 10 MG PO SCH (09:26)
[2019-01-01] MEDS: clonazePAM TAB(*) 0.5 MG PO SCH ×3 (09:26→21:02)
[2019-01-01] MEDS: LEVODOPA PO SCH ×3 (09:26→17:16)
[2019-01-01] MEDS: Aspirin EC TAB* 81 MG TAB.EC PO SCH (09:26)
[2019-01-01] MEDS: Cinacalcet TAB* 30 MG PO SCH ×2 (09:26→16:24)
[2019-01-01] MEDS: Docusate CAP* 100 MG PO SCH ×2 (09:26→21:02)
[2019-01-01] MEDS: CARBIDOPA PO SCH ×3 (09:26→17:16)
[2019-01-01] MEDS: Ondansetron INJ* 2 MG/ML VIAL IV PRN (09:27)
[2019-01-01] MEDS: CMCS: Lithium Carbonate ER (NF) 300 MG TAB.ER PO SCH ×2 (09:36→21:02)
[2019-01-01] MEDS: Polyethylene Glycol 3350* 17 GM PACKET PO SCH ×2 (09:36→21:34)
[2019-01-01] MEDS: Sertraline* 100 MG TAB PO SCH (09:37)
[2019-01-01] MEDS ORDERED: Mineral Oil ENEMA* 1 BOTTLE PR ONE (10:11)
[2019-01-01] MEDS ORDERED: PEG 3000 GI LAVAGE* 1 GALLON PO ONE (10:12)
[2019-01-01 10:37] LABS: Hematocrit 31 % (35-47); Hemoglobin 9.3 g/dL (12.0-16.0); Mean Corpuscular HGB Conc 30 g/dL (31-36); Mean Corpuscular Hemoglobin 30 pg (27-31); Mean Corpuscular Volume 98 fL (80-97); Mean Platelet Volume 10.6 fL (7.4-10.4); Platelet Count 246 10^3/uL (150-450); Red Blood Count 3.13 10^6 /uL (3.70-4.87); Red Cell Distribution Width 19 % (10-15); White Blood Count 7.8 10^3/uL (3.5-10.8)
--- NOTE | 2019-01-01 10:41 | PN ---
Subjective Date of Service: 01/01/19 Interval History: Patient reports that she is feeling better. Denies chest pain or shortness of breath. Denies abd pain n/v/d. Nursing reports 3-4 episodes of vomiting yesterday. Patient currently denies nausea Family History: Unchanged from Admission Social History: Unchanged from Admission Past Medical History: Unchanged from Admission Objective Active Medications: Acetaminophen (Tylenol Tab*) 650 mg PO Q6H PRN PRN Reason: PAIN - MILD Aspirin (Aspirin Ec Tab*) 81 mg PO DAILY [facility] Last Admin: 01/01/19 09:26 Dose: 81 mg Bisacodyl (Dulcolax Supp*) 10 mg [place] DAILY PRN PRN Reason: CONSTIPATION Carbidopa/Levodopa (Carbidopa/Levodopa Odt (Nf)) 3 tab PO 0830,1300,1830 [facility] Last Admin: 01/01/19 09:26 Dose: 3 tab Cinacalcet (Sensipar Tab*) 30 mg PO BID WITH MEALS [facility] Last Admin: 01/01/19 09:26 Dose: 30 mg Clonazepam (Klonopin Tab(*)) 0.5 mg PO TID [facility] Last Admin: 01/01/19 09:26 Dose: 0.5 mg Docusate Sodium (Colace Cap*) 100 mg PO BID [facility] Last Admin: 01/01/19 09:26 Dose: 100 mg Lamotrigine (Lamictal Tab(*)) 100 mg PO BID [facility] Last Admin: 01/01/19 09:26 Dose: 100 mg [place] Carbonate ([place] Carbonate Er (Nf)) 300 mg PO BID [facility]; Protocol Last Admin: 01/01/19 09:36 Dose: 300 mg Mirtazapine (Remeron Tab*) 15 mg PO BEDTIME [facility] Last Admin: 12/31/18 23:06 Dose: Not Given Mometasone Furoate/Formoterol Fumar (Dulera 200/5 Mdi*) 2 puff INH BID [facility]; Protocol Last Admin: 01/01/19 08:11 Dose: 2 puff Ondansetron HCl (Zofran Inj*) 4 mg IV Q6H PRN PRN Reason: NAUSEA Last Admin: 01/01/19 09:27 Dose: 4 mg Pantoprazole Sodium (Protonix Tab*) 40 mg PO 1830 [facility] Last Admin: 12/31/18 18:07 Dose: 40 mg Pharmacy Profile Note (Scopolamine Patch Remove*) 1 note PATCH OFF Q72H [facility] Polyethylene Glycol/Electrolytes (Miralax*) 17 gm PO DAILY [facility] Last Admin: 01/01/19 09:36 Dose: 17 gm Propranolol HCl (Inderal Tab*) 10 mg PO QAM [facility] Last Admin: 01/01/19 09:26 Dose: 10 mg Scopolamine (Transderm-Scop 1.5 Mg Patch*) 1 patch TRANSDERM Q72H [facility] Last Admin: 12/30/18 14:23 Dose: 1 patch Sertraline HCl (Zoloft*) 150 mg PO 1130 [facility] Last Admin: 01/01/19 09:37 Dose: 150 mg Tiotropium [place] (Spiriva Respimat 2.5 Mcg) 1 puff INH DAILY [facility] Last Admin: 01/01/19 08:11 Dose: 1 puff Vital Signs - 8 hr 01/01/19 01/01/19 01/01/19 03:15 07:15 08:00 Temperature 97.6 F 98.1 F Pulse Rate 66 63 Respiratory 16 16 18 Rate Blood Pressure 108/75 129/66 (mmHg) O2 Sat by Pulse 100 95 Oximetry 01/01/19 01/01/19 01/01/19 08:13 09:26 10:27 Temperature Pulse Rate 68 Respiratory 18 18 16 Rate Blood Pressure (mmHg) O2 Sat by Pulse 98 Oximetry Oxygen Devices in Use Now: Nasal Cannula Appearance: appears comfortable resting in bed , no acute distress Eyes: No Scleral Icterus Ears/Nose/Mouth/Throat: Clear Oropharnyx, Mucous Membranes Moist Neck: NL Appearance and Movements; NL JVP, Trachea Midline Respiratory: Symmetrical Chest Expansion and Respiratory Effort, Clear to Auscultation Cardiovascular: NL Sounds; No Murmurs; No JVD, No Edema Abdominal: NL Sounds; No Tenderness; No Distention Extremities: No Edema, No Clubbing, Cyanosis Skin: No Rash or Ulcers Neurological: Alert and Oriented x 3, - - periods of confusion per her baseline Nutrition: Taking PO's Result Diagrams: 12/31/18 06:24 12/31/18 06:24 Microbiology and Other Data: Microbiology 12/30/18 20:05 Urine Culture - Preliminary Urine Enterococcus Faecalis Assess/Plan/Problems-Billing Assessment: Ms. segovia is a 73 y.o female with hx of parkinson, depression , hypercalcemia ,hyperparathyroidism due to lithium use who presented to the emergency room with nausea and vomiting and constipation. Patient has had recent admissions for the same. - Patient Problems (1) Nausea & vomiting Current Visit: Yes Status: Acute Code(s): R11.2 - NAUSEA WITH VOMITING, UNSPECIFIED SNOMED Code(s): 40246509 Comment: c/o n/v - 1 episode overnight of vomiting - GI - will see the patient is consult today - will start BID PPI and mirlax BID, gastric emptying study ordered - Likely associated with constipation - continue scopolamine patch, zofran (2) Constipation Current Visit: No Status: Acute Code(s): K59.00 - CONSTIPATION, UNSPECIFIED SNOMED Code(s): 65692812 Comment: likely causing nausea and vomiting. -Likely from immobility and hypercalcemia (on presenation), Parkinsons, and medications. - magnesium citrate given yesterday - NO BM - will increase PPI to BID , increase Miralax to BID and gastric emptying study ordered - GI will see the patient in consult as well (3) UTI (urinary tract infection) Current Visit: No Status: Acute Comment: No symptoms abdominal pain or tenderness; has confusion but it is her baseline; did present with nausea and vomiting has espinoza in place-will change after 24 hours of antibiotics Urine Culture positive for E. fecealis has recently been on nitrofurantoin- no resolution - will start vancomycin (4) Malnutrition Current Visit: Yes Status: Acute Code(s): E46 - UNSPECIFIED PROTEIN-CALORIE MALNUTRITION SNOMED Code(s): 05545888 Comment: Patient has had weight loss in the past 3 months- reported weight on 12/14 -127 Documented weight now 107 - nutritional consult placed - suspect that this is related to underlying n/v decreased appitite with associated constipation (5) Dehydration Current Visit: No Status: Acute Code(s): E86.0 - DEHYDRATION SNOMED Code(s ): 09654596 Comment: - patient 1 episode of vomiting last evening - patient is tolerating po fluids - will monitor I/O's and resume IVF's if patient is unable to tolerate PO or has increased episodes of vomiting (6) Neurogenic bladder Current Visit: No Status: Acute Code(s): N31.9 - NEUROMUSCULAR DYSFUNCTION OF BLADDER, UNSPECIFIED SNOMED Code(s): 595239931 Comment: - Continue Flomax. (7) Parkinson disease Current Visit: No Status: Acute Code(s): G20 - PARKINSON'S DISEASE SNOMED Code(s): 26050297 Comment: - cont Sinimet - ODT given recent nausea/vomiting. (8) Weakness Current Visit: No Status: Acute Priority: High Code(s): R53.1 - WEAKNESS SNOMED Code(s): 32365213 Comment: - appears frail -PT ordered (9) Bipolar disorder Current Visit: No Status: Chronic Priority: High Comment: stable Complex, jail Psych follow up with Dr . Continue [place], Lamotrigine, clonazepam, mirtazapine, sertraline . (10) COPD (chronic obstructive pulmonary disease) Current Visit: No Status: Chronic Priority: High Code(s): J44.9 - CHRONIC OBSTRUCTIVE PULMONARY DISEASE, UNSPECIFIED SNOMED Code(s): 24687434 Comment: asymptomatic - continue Spiriva, Symbicort (11) HTN (hypertension) Current Visit: No Status: Chronic Priority: High Code(s): I10 - ESSENTIAL (PRIMARY) HYPERTENSION SNOMED Code(s): 88064443 Comment: Controlled. Continue Inderal (12) Dementia Current Visit: No Status: Chronic Priority: High Code(s): F03.90 - UNSPECIFIED DEMENTIA WITHOUT BEHAVIORAL DISTURBANCE SNOMED Code(s): 04179459 Comment: Continue with supportive care, (13) DVT prophylaxis Current Visit: No Status: Acute Priority: Medium Code(s): MHN0842 - SNOMED Code(s): 953708863 Comment: - SCD's (14) Full code status Current Visit: No Status: Acute Code(s): Z78.9 - OTHER SPECIFIED HEALTH STATUS SNOMED Code(s): 211197586
[2019-01-01 10:53] LABS: Calcium 9.6 mg/dL (8.6-10.3); Potassium 3.8 mmol/L (3.5-5.0)
[2019-01-01 10:59] LABS: BUN/Creatinine Ratio 10.1 (8-20); EGFR African American 101.5 (>60); EGFR Non-African American 83.9 (>60)
[2019-01-01] MEDS: Pantoprazole TAB * 40 MG TAB PO SCH ×2 (11:43→21:02)
[2019-01-01] MEDS ORDERED: Vancomycin(*) 750 MG in NS 0.9% 250 ML* 250 ML IVPB ONE (12:00)
[2019-01-01] MEDS ORDERED: Vancomycin per Pharmacy* NOTE FOLLOW UP SCH (12:00)
--- NOTE | 2019-01-01 20:25 | CONS ---
GASTROENTEROLOGY CONSULT REPORT: DATE OF CONSULT: 01/01/19 REQUESTING PROVIDER: Char Mclaughlin NP REASON FOR CONSULT: Nausea, vomiting, constipation. HISTORY OF PRESENT ILLNESS: Ms. Nelson is a 73-year-old woman with a history of parkinsonism; bipolar disorder, on lithium; hypercalcemia; neurogenic bladder with espinoza catheter, who presents for readmission with constipation, nausea, and vomiting. Ms. Nelson has had several recent admissions for constipation, nausea, and vomiting. A CT abdomen and pelvis was unrevealing for a source. The patient most recently underwent an EGD on 12/16/18 which demonstrated mild gastritis. Biopsies from the stomach demonstrated minimal superficial chronic inflammation. Duodenal biopsies were negative for evidence of celiac disease. Recommendation has been to manage constipation with bowel regimen. Hypercalcemia was also felt to be contributing to symptoms, but this has improved recently. Labs this admission notable for a white count that was mildly elevated to 12.5. Urine culture positive for Enterococcus faecalis, which was also seen on several occasions in October, November and earlier this month. She has been given treatment, although her urine has not cleared. Since arrival during this admission, Ms. Nelson has continued to experience nausea. She has not had any vomiting today, although she attributes this to not eating anything. She has been nauseous for past several weeks. She has been vomiting up to 3 times a day. She vomits undigested food almost immediately. She has been getting Zofran and scopolamine patch for the nausea and vomiting. Weight is down at least 20 pounds in the past month due to her decreased p.o. intake. She has not had any significant abdominal discomfort. She has been complaining of progressive constipation. She has a bowel movement every few days typically. She has been receiving a bowel regimen in the hospital and did have a bowel movement today, which was medium-sized and brown. PAST MEDICAL HISTORY: 1. Parkinson's disease. 2. Bipolar disorder, on lithium. 3. Anxiety. 4. Neurogenic bladder with a Espinoza catheter. 5. Recurrent UTIs. 6. COPD. 7. Hyperparathyroidism and hypercalcemia. PAST SURGICAL HISTORY: Total knee replacement, oophorectomy, right hand open reduction and internal fixation. HOME MEDICATIONS: Include: 1. Aspirin 81 mg daily. 2. Budesonide and formoterol. 3. Clonazepam 0.5 mg t.i.d. 4. Vitamin B12. 5. Probiotics. 6. Lamictal 100 mg twice daily. 7. [place] 300 mg twice daily. 8. Mirtazapine 15 mg at bedtime. 9. Omeprazole 40 mg every morning. 10. Ondansetron as needed. 11. Propranolol 10 mg in the morning. 12. Sertraline 150 mg in the morning. 13. Spiriva. 14. Bisacodyl p.r.n. 15. Carbidopa/levodopa 25/100. 16. Sensipar. 17. Mag-Ox. 18. Stool softener. 19. MiraLAX. 20. Scopolamine patch. 21. Flomax 0.4 mg daily. ALLERGIES: Include AUGMENTIN, CLARITHROMYCIN, MOXIFLOXACIN, and SULFA. FAMILY HISTORY: Mother had Parkinson's disease. No known GI or liver disease. 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 Lives now in a facility where there are aides 13/11. REVIEW OF SYSTEMS: A complete 14-point review of systems is negative except as described in the HPI. PHYSICAL EXAM: Vital Signs: Afebrile, heart rate in the 60s, blood pressure 120s/60s, 97% to 100% on room air. General: Frail, chronically ill-appearing woman, in no acute distress. HEENT: Mucous membranes moist. Anicteric sclerae. Cardiovascular: Regular rate and rhythm. Respiratory: Breathing comfortably. Abdomen: Soft, nontender, nondistended. Hypoactive bowel sounds. Extremities: No significant edema. DIAGNOSTIC STUDIES/LAB DATA: Labs reviewed per HPI. White count mildly elevated to 12.5 on arrival and now down to 7.8, hemoglobin 9.3, hematocrit 31, platelet count 246. Calcium is 9.6. UA positive and urine culture positive for Enterococcus faecalis. Imaging: Chest x-ray demonstrated stigmata of obstructive lung disease and possible pulmonary arterial hypertension. No acute process. Abdomen x-ray demonstrated nonspecific bowel gas pattern with moderate amount of stool in the colon. Reviewed CT abdomen and pelvis from 11/22/18 without acute findings. Endoscopy: EGD from late November reviewed and summarized in HPI. IMPRESSION AND RECOMMENDATIONS: Ms. Nelson is a 73-year-old woman with multiple medical conditions including parkinsonism; bipolar disorder, on lithium ; chronic obstructive pulmonary disease; neurogenic bladder with Espinoza catheter ; recurrent urinary tract infections; and hypercalcemia, who is readmitted with ongoing nausea, vomiting, constipation, and weight loss. Ms. Nelson continues to report significant nausea, although she has not vomited today. Possible that she is not having vomiting as she has not had much p.o. intake. Her weight loss of at least 20 pounds in the past month, per the patient and son, is concerning. At this point, there has not been a clear explanation for this acute weight loss or the nausea and vomiting. It is possible that recurrent urinary tract infections may be contributing to the symptoms. Medicine team is working on effectively treating the urinary tract infection. The constipation is likely multifactorial with the patient's underlying Parkinson's disease, medications (Sinemet and Ondansetron), and poor po intake may be contributing factors. Would recommend increasing PPI to twice daily. Would continue with antiemetics to help control nausea and vomiting symptoms further. Recommend a gastric emptying study given persistent nausea/vomiting symptoms. Continue with bowel regimen. Would increase Miralax to twice daily and trial Metamucil fiber daily. GI will continue to follow along. Thank you very much for this consult. [id number]/[facility] #: [id number] [facility] CENTERRohit
[2019-01-01] MEDS: Mirtazapine TAB* 15 MG PO SCH (21:02)
[2019-01-02] MEDS: Vancomycin(*) 750 MG in NS 0.9% 250 ML* 250 ML IVPB SCH ×2 (02:51→12:35)
[2019-01-02] MEDS: Mometasone/Formoter 200/5 MDI INH SCH ×2 (08:19→20:23)
[2019-01-02] MEDS: SPIRIVA Respimat* (tiotropium) 2.5 mcg/inh Inhaler INH SCH (08:20)
[2019-01-02] MEDS: CARBIDOPA PO SCH ×3 (10:51→22:10)
[2019-01-02] MEDS: LEVODOPA PO SCH ×3 (10:51→22:10)
[2019-01-02] MEDS: CMCS: Lithium Carbonate ER (NF) 300 MG TAB.ER PO SCH ×2 (11:32→21:08)
[2019-01-02] MEDS: Docusate CAP* 100 MG PO SCH ×2 (11:32→22:11)
[2019-01-02] MEDS: Aspirin EC TAB* 81 MG TAB.EC PO SCH (11:32)
[2019-01-02] MEDS: clonazePAM TAB(*) 0.5 MG PO SCH ×3 (11:32→21:06)
[2019-01-02] MEDS: lamoTRIgine TAB(*) 100 MG PO SCH ×2 (11:32→21:08)
[2019-01-02] MEDS: Cinacalcet TAB* 30 MG PO SCH ×2 (11:32→15:55)
[2019-01-02] MEDS: Propranolol TAB* 10 MG PO SCH (11:33)
[2019-01-02] MEDS: Pantoprazole TAB * 40 MG TAB PO SCH ×2 (11:33→21:08)
[2019-01-02] MEDS: Polyethylene Glycol 3350* 17 GM PACKET PO SCH ×2 (11:33→21:06)
[2019-01-02] MEDS: Sertraline* 100 MG TAB PO SCH (12:36)
[2019-01-02] MEDS: Scopolamine 1.5 mg* PATCH TRANSDERM SCH (14:33)
[2019-01-02] MEDS: Scopolamine PATCH Remove* 1 NOTE MISC PATCH OFF SCH (14:39)
--- NOTE | 2019-01-02 16:12 | PN ---
Progress Note - Progress Note Date of Service: 01/01/19 Note: error, please see note in EMR from same day
--- NOTE | 2019-01-02 16:13 | PN ---
Progress Note - Progress Note Date of Service: 01/02/19 Note: GI Follow up Patient seen and examined. Aide at bedside. Scopolamine patch helping a bit. Gastric emptying study negative. Suspect nausea and symptoms related to dopamine from Parkinsons and/or medication effect. Rec: Would have Neurology and Psychiatry consult to re-evaluate medication regimen to see if changes could be made Continue supportive care. Limited data on domperidone in parkinsons but difficult to obtain in [place] Recall with questions. Abner Ragsdale DO 01/02/19 [id number]
[2019-01-02] MEDS ORDERED: NS 0.9% 1000 ML** 1,000 ML IV SCH (20:30)
--- NOTE | 2019-01-02 20:34 | PN ---
Subjective Date of Service: 01/02/19 Interval History: Patient reports that she is feeling better today, returned from gastric emptying study. Denies fever or chills, denies abd pain Denies chest pain or shortness of breath Spoke to today who would like the espinoza catheter removed. Spoke to Dr. Julio marino to remove recommended bladder scan after 4 hours, side consult to ID about urine culture likely colonization - recommended removing the espinoza and stopping vancomycin GI saw the patient this evening and has recommended consult to Psych and neurology for medication evaluation as this could be related to her nausea. 2033- Called by nursing patient with episodes of vomiting, - will resume IVF NS at 100cc/hr Family History: Unchanged from Admission Social History: Unchanged from Admission Past Medical History: Unchanged from Admission Objective Active Medications: Acetaminophen (Tylenol Tab*) 650 mg PO Q6H PRN PRN Reason: PAIN - MILD Aspirin (Aspirin Ec Tab*) 81 mg PO DAILY [facility] Last Admin: 01/02/19 11:32 Dose: Not Given Bisacodyl (Dulcolax Supp*) 10 mg [place] DAILY PRN PRN Reason: CONSTIPATION Carbidopa/Levodopa (Carbidopa/Levodopa Odt (Nf)) 3 tab PO 0830,1300,1830 [facility] Last Admin: 01/02/19 15:55 Dose: 3 tab Cinacalcet (Sensipar Tab*) 30 mg PO BID WITH MEALS [facility] Last Admin: 01/02/19 15:55 Dose: 30 mg Clonazepam (Klonopin Tab(*)) 0.5 mg PO TID [facility] Last Admin: 01/02/19 12:35 Dose: 0.5 mg Docusate Sodium (Colace Cap*) 100 mg PO BID [facility] Last Admin: 01/02/19 11:32 Dose: Not Given Sodium Chloride (Ns 0.9% 1000 Ml) 1,000 mls @ 100 mls/hr IV PER RATE [facility] Lamotrigine (Lamictal Tab(*)) 100 mg PO BID [facility] Last Admin: 01/02/19 11:32 Dose: Not Given [place] Carbonate ([place] Carbonate Er (Nf)) 300 mg PO BID [facility]; Protocol Last Admin: 01/02/19 11:32 Dose: Not Given Mirtazapine (Remeron Tab*) 15 mg PO BEDTIME [facility] Last Admin: 01/01/19 21:02 Dose: 15 mg Mometasone Furoate/Formoterol Fumar (Dulera 200/5 Mdi*) 2 puff INH BID [facility]; Protocol Last Admin: 01/02/19 20:23 Dose: 2 puff Ondansetron HCl (Zofran Inj*) 4 mg IV Q6H PRN PRN Reason: NAUSEA Last Admin: 01/01/19 09:27 Dose: 4 mg Pantoprazole Sodium (Protonix Tab*) 40 mg PO BID [facility] Last Admin: 01/02/19 11:33 Dose: Not Given Pharmacy Profile Note (Scopolamine Patch Remove*) 1 note PATCH OFF Q72H [facility] Last Admin: 01/02/19 14:39 Dose: 1 patch Polyethylene Glycol/Electrolytes (Miralax*) 17 gm PO BID [facility] Last Admin: 01/02/19 11:33 Dose: Not Given Propranolol HCl (Inderal Tab*) 10 mg PO QAM [facility] Last Admin: 01/02/19 11:33 Dose: Not Given Scopolamine (Transderm-Scop 1.5 Mg Patch*) 1 patch TRANSDERM Q72H [facility] Last Admin: 01/02/19 14:33 Dose: 1 patch Sertraline HCl (Zoloft*) 150 mg PO 1130 [facility] Last Admin: 01/02/19 12:36 Dose: 150 mg Tiotropium [place] (Spiriva Respimat 2.5 Mcg) 1 puff INH DAILY [facility] Last Admin: 01/02/19 08:20 Dose: Not Given Vital Signs - 8 hr 01/02/19 01/02/19 01/02/19 12:35 15:11 15:47 Temperature 98.2 F Pulse Rate 68 Respiratory 16 16 20 Rate Blood Pressure 146/86 (mmHg) O2 Sat by Pulse 95 Oximetry 01/02/19 20:23 Temperature Pulse Rate 72 Respiratory 18 Rate Blood Pressure (mmHg) O2 Sat by Pulse 92 Oximetry Oxygen Devices in Use Now: None Eyes: No Scleral Icterus Ears/Nose/Mouth/Throat: Clear Oropharnyx, Mucous Membranes Moist Neck: NL Appearance and Movements; NL JVP, Trachea Midline Respiratory: Symmetrical Chest Expansion and Respiratory Effort, Clear to Auscultation Cardiovascular: NL Sounds; No Murmurs; No JVD, No Edema Abdominal: NL Sounds; No Tenderness; No Distention Extremities: No Edema, No Clubbing, Cyanosis Skin: No Rash or Ulcers Neurological: Alert and Oriented x 3 Nutrition: Taking PO's Result Diagrams: 01/01/19 10:05 01/01/19 10:05 Microbiology and Other Data: Microbiology 12/30/18 20:05 Urine Culture - Preliminary Urine Enterococcus Faecalis Assess/Plan/Problems-Billing Assessment: Ms. segovia is a 73 y.o female with hx of parkinson, depression , hypercalcemia ,hyperparathyroidism due to lithium use who presented to the emergency room with nausea and vomiting and constipation. Patient has had recent admissions for the same. - Patient Problems (1) Nausea & vomiting Current Visit: Yes Status: Acute Code(s): R11.2 - NAUSEA WITH VOMITING, UNSPECIFIED SNOMED Code(s): 69165864 Comment: states nausea is better - now with vomiting , will resume IVF this evening - GI consulted started BID PPI and mirlax BID, gastric emptying study completed - normal exam - could be associated with constipation, medications - Gi recommended psych consult and neurology consult for medications recommendations - consult placed for psych - will need to contact neurology in the AM - continue scopolamine patch, zofran (2) Constipation Current Visit: No Status: Acute Code(s): K59.00 - CONSTIPATION, UNSPECIFIED SNOMED Code(s): 17614401 Comment: Resolved likely causing nausea and vomiting. -Likely from immobility and hypercalcemia (on presenation), Parkinsons, and medications. - will increase PPI to BID , increase Miralax to BID and gastric emptying study ordered - GI has seen and jose recommendations (3) UTI (urinary tract infection) Current Visit: No Status: Acute Comment: No symptoms , no abdominal pain or tenderness; has confusion but it is her baseline; did present with nausea and vomiting has espinoza in place- spoke to DR. Kim today - will remove espinoza in the AM and allow for voiding trial Urine Culture positive for E. fecealis- likely colonization - side consult to ID recommended stopping Vancomycin and removing the espinoza has recently been on nitrofurantoin- no resolution will bladder scan 4 hours after espinoza is removed (4) Malnutrition Current Visit: Yes Status: Acute Code(s): E46 - UNSPECIFIED PROTEIN-CALORIE MALNUTRITION SNOMED Code(s): 92882160 Comment: Patient has had weight loss in the past 3 months- reported weight on 12/14 -127 Documented weight now 107 - nutritional consult - recommended ensure clear - pateint refused - suspect that this is related to underlying n/v decreased appitite with associated constipation (5) Dehydration Current Visit: No Status: Acute Code(s): E86.0 - DEHYDRATION SNOMED Code(s ): 52640366 Comment: - vomiting this evenng, intake behind will resume IVF NS - patient is tolerating po fluids - will continue to monitor I/O's (6) Neurogenic bladder Current Visit: No Status: Acute Code(s): N31.9 - NEUROMUSCULAR DYSFUNCTION OF BLADDER, UNSPECIFIED SNOMED Code(s): 149673084 Comment: - Continue Flomax. will remove espinoza in the AM, discussed with Julio CARRENO - ok to remove, bladder scan after 4 hours - likely will needed to replace espinoza as patient has failed voiding trials in the recent past. - patient is requesting to have espinoza removed (7) Parkinson disease Current Visit: No Status: Acute Code(s): G20 - PARKINSON'S DISEASE SNOMED Code(s): 66809678 Comment: - cont Sinimet - ODT given recent nausea/vomiting. (8) Weakness Current Visit: No Status: Acute Priority: High Code(s): R53.1 - WEAKNESS SNOMED Code(s): 86667451 Comment: - appears frail -PT ordered (9) Bipolar disorder Current Visit: No Status: Chronic Priority: High Comment: stable Complex, manager terminal Psych follow up with Dr Torres. Continue [place], Lamotrigine, clonazepam, mirtazapine, sertraline . (10) COPD (chronic obstructive pulmonary disease) Current Visit: No Status: Chronic Priority: High Code(s): J44.9 - CHRONIC OBSTRUCTIVE PULMONARY DISEASE, UNSPECIFIED SNOMED Code(s): 20559944 Comment: asymptomatic - continue Spiriva, Symbicort (11) HTN (hypertension) Current Visit: No Status: Chronic Priority: High Code(s): I10 - ESSENTIAL (PRIMARY) HYPERTENSION SNOMED Code(s): 92018153 Comment: Controlled. Continue Inderal (12) Dementia Current Visit: No Status: Chronic Priority: High Code(s): F03.90 - UNSPECIFIED DEMENTIA WITHOUT BEHAVIORAL DISTURBANCE SNOMED Code(s): 48142694 Comment: Continue with supportive care, (13) DVT prophylaxis Current Visit: No Status: Acute Priority: Medium Code(s): WPS7757 - SNOMED Code(s): 273694461 Comment: - SCD's (14) Full code status Current Visit: No Status: Acute Code(s): Z78.9 - OTHER SPECIFIED HEALTH STATUS SNOMED Code(s): 883825238
[2019-01-02] MEDS: Ondansetron INJ* 2 MG/ML VIAL IV PRN (21:05)
[2019-01-02] MEDS: Mirtazapine TAB* 15 MG PO SCH (22:11)
[2019-01-03 06:33] LABS: ABS Eosinophils 0.2 10^3/ul (0-0.6); ABS Lymphocytes 1.2 10^3/ul (1.0-4.8); ABS Monocytes 0.4 10^3/ul (0-0.8); ABS Neutrophils 4.4 10^3/ul (1.5-7.7); Eosinophil % 3.2 %; Hematocrit 26 % (35-47); Hemoglobin 8.7 g/dL (12.0-16.0); Lymphocyte % 19.2 %; Mean Corpuscular HGB Conc 33 g/dL (31-36); Mean Corpuscular Hemoglobin 30 pg (27-31); Mean Corpuscular Volume 89 fL (80-97); Platelet Count 262 10^3/uL (150-450); Red Blood Count 2.95 10^6 /uL (3.70-4.87); Red Cell Distribution Width 17 % (10-15); White Blood Count 6.2 10^3/uL (3.5-10.8)
[2019-01-03 06:50] LABS: BUN/Creatinine Ratio 7.4 (8-20); Calcium 9.2 mg/dL (8.6-10.3); EGFR African American 103.2 (>60); EGFR Non-African American 85.3 (>60); Potassium 3.5 mmol/L (3.5-5.0)
[2019-01-03] MEDS: clonazePAM TAB(*) 0.5 MG PO SCH ×3 (08:45→20:45)
[2019-01-03] MEDS: LEVODOPA PO SCH ×3 (08:46→18:15)
[2019-01-03] MEDS: CARBIDOPA PO SCH ×3 (08:46→18:15)
[2019-01-03] MEDS: Polyethylene Glycol 3350* 17 GM PACKET PO SCH ×2 (08:49→20:45)
[2019-01-03] MEDS: Cinacalcet TAB* 30 MG PO SCH ×2 (08:54→17:28)
[2019-01-03] MEDS: Pantoprazole TAB * 40 MG TAB PO SCH ×2 (08:57→20:46)
[2019-01-03] MEDS: CMCS: Lithium Carbonate ER (NF) 300 MG TAB.ER PO SCH ×2 (08:58→20:45)
[2019-01-03] MEDS: Ondansetron INJ* 2 MG/ML VIAL IV PRN ×2 (09:06→20:49)
[2019-01-03] MEDS: Mometasone/Formoter 200/5 MDI INH SCH ×2 (09:09→22:55)
[2019-01-03] MEDS: SPIRIVA Respimat* (tiotropium) 2.5 mcg/inh Inhaler INH SCH (09:10)
[2019-01-03] MEDS: lamoTRIgine TAB(*) 100 MG PO SCH ×2 (09:35→20:46)
[2019-01-03] MEDS: Propranolol TAB* 10 MG PO SCH (09:38)
[2019-01-03] MEDS ORDERED: Vancomycin Trough Check NOTE FOLLOW UP ONE (11:30)
[2019-01-03 11:58] LABS: EGFR African American 96.6 (>60); EGFR Non-African American 79.9 (>60)
[2019-01-03] MEDS: Sertraline* 100 MG TAB PO SCH (11:59)
[2019-01-03] MEDS: Aspirin EC TAB* 81 MG TAB.EC PO SCH (12:01)
[2019-01-03] MEDS: Docusate CAP* 100 MG PO SCH ×2 (12:02→20:45)
--- NOTE | 2019-01-03 13:52 | PN ---
Subjective Date of Service: 01/03/19 Interval History: Ms. Nelson reports persistent nausea and vomiting and inability to tolerate oral intake. She denies other complaint today. A voiding trial was attempted but she was only able to void a small amount with significant residuals. Family History: Unchanged from Admission Social History: Unchanged from Admission Past Medical History: Unchanged from Admission Objective Active Medications: Acetaminophen (Tylenol Tab*) 650 mg PO Q6H PRN Aspirin (Aspirin Ec Tab*) 81 mg PO DAILY [facility] Bisacodyl (Dulcolax Supp*) 10 mg [place] DAILY PRN Carbidopa/Levodopa (Carbidopa/Levodopa Odt (Nf)) 3 tab PO 0830,1300,1830 [facility] Cinacalcet (Sensipar Tab*) 30 mg PO BID WITH MEALS [facility] Clonazepam (Klonopin Tab(*)) 0.5 mg PO TID [facility] Docusate Sodium (Colace Cap*) 100 mg PO BID [facility] Sodium Chloride (Ns 0.9% 1000 Ml) 1,000 mls @ 100 mls/hr IV PER RATE [facility] Lamotrigine (Lamictal Tab(*)) 100 mg PO BID [facility] [place] Carbonate ([place] Carbonate Er (Nf)) 300 mg PO BID [facility]; Protocol Mirtazapine (Remeron Tab*) 15 mg PO BEDTIME [facility] Mometasone Furoate/Formoterol Fumar (Dulera 200/5 Mdi*) 2 puff INH BID [facility]; Protocol Ondansetron HCl (Zofran Inj*) 4 mg IV Q6H PRN Pantoprazole Sodium (Protonix Tab*) 40 mg PO BID [facility] Pharmacy Profile Note (Scopolamine Patch Remove*) 1 note PATCH OFF Q72H [facility] Polyethylene Glycol/Electrolytes (Miralax*) 17 gm PO BID [facility] Propranolol HCl (Inderal Tab*) 10 mg PO QAM [facility] Scopolamine (Transderm-Scop 1.5 Mg Patch*) 1 patch TRANSDERM Q72H [facility] Sertraline HCl (Zoloft*) 150 mg PO 1130 [facility] Tiotropium [place] (Spiriva Respimat 2.5 Mcg) 1 puff INH DAILY [facility] Vital Signs: Temp Pulse Resp BP Pulse Ox 97.7 F 63 16 132/65 95 01/03/19 11:03 01/03/19 11:03 01/03/19 12:02 01/03/19 11:03 01/03/19 11:03 Oxygen Devices in Use Now: None Appearance: Female sitting up in chair in NAD Eyes: No Scleral Icterus Ears/Nose/Mouth/Throat: Mucous Membranes Moist Neck: Trachea Midline Respiratory: Symmetrical Chest Expansion and Respiratory Effort, Clear to Auscultation Cardiovascular: NL Sounds; No Murmurs; No JVD, No Edema Abdominal: NL Sounds; No Tenderness; No Distention Extremities: No Edema Skin: No Rash or Ulcers Neurological: NL Muscle Strength and Tone, - - Alert and oriented to self Nutrition: Taking PO's Result Diagrams: 01/03/19 05:43 01/03/19 11:36 Microbiology and Other Data: . Assess/Plan/Problems-Billing Assessment: Ms. Pena is a 73 y.o female with hx of parkinson, depression , hypercalcemia ,hyperparathyroidism due to lithium use who presented to the emergency room with nausea and vomiting and constipation. Patient has had recent admissions for the same. - Patient Problems (1) Nausea & vomiting Comment: - No real change - GI consulted, started BID PPI and mirlax BID, gastric emptying study completed - normal exam - Could be associated with constipation, no other cause identified - GI recommended psych consult for medication recommendations, psych notes that patient has been on the same meds since 2014, no indication that psych meds are contributing - Continue scopolamine patch, zofran, unable to add compazine or reglan given interactions with other medications (2) Neurogenic bladder Comment: - With urinary retention and chronic espinoza. - Failed voiding trial, espinoza to be replaced. - Continue Flomax. (3) Malnutrition Comment: - Patient has had weight loss in the past 3 months, reported weight on 12/14 -127 Documented weight now 107 - Nutritional consult - recommended ensure clear - patient refused - Suspect that this is related to underlying n/v decreased appetite with associated constipation (4) Constipation Comment: - BM 2 days ago - Question if constipation contributes to nausea and vomiting. - Likely from immobility and hypercalcemia (on presentation), Parkinsons, and medications. - Continue PPI to BID, Miralax to BID (5) Hyperparathyroidism due to lithium therapy Comment: - Hypercalcemia chronic and likely worsened by immobility. Evaluated by Dr. Mark last admission: recommended medical management. Discontinuation of lithium deemed not a viable option due to successful mood stabilization. No parathyroid adenoma on US. - Cont sensipar (6) Parkinson disease Comment: - cont Sinimet - ODT given recent nausea/vomiting. (7) UTI (urinary tract infection) Comment: - No symptoms , no abdominal pain or tenderness; has confusion but it is her baseline; did present with nausea and vomiting - Chronic indwelling espinoza in place- discussed with DR. Kim, voiding trial failed today - Urine Culture positive for E. fecealis- likely colonization - side consult to ID recommended stopping Vancomycin and changing the espinoza, has recently been on nitrofurantoin- no resolution (8) Urinary retention Comment: - Failed trial void today. - Plan to keep espinoza (other option is intermittent straight cath, but not their preference). (9) Bipolar disorder Comment: - Stable - Complex, [facility] Psych follow up with Dr . - Continue [place], Lamotrigine, clonazepam, mirtazapine, sertraline . (10) COPD (chronic obstructive pulmonary disease) Comment: - asymptomatic - continue Spiriva, Symbicort (11) Dementia Comment: - Continue with supportive care, (12) HTN (hypertension) Comment: - Controlled. Continue propranolol (13) DVT prophylaxis Comment: - SCD's (14) Full code status Comment: Status and Disposition: Inpatient. Anticipate discharge to home when medically stable.
[2019-01-03] MEDS ORDERED: PROCHLORPERAZINE INJ 5 MG/ML 2 ML VIAL IV PRN (14:45)
[2019-01-03] MEDS ORDERED: Bisacodyl SUPP* 10 MG SUPP PR ONE (16:30)
[2019-01-03] MEDS: Tamsulosin CAP* 0.4 MG PO SCH (20:45)
[2019-01-03] MEDS: Mirtazapine TAB* 15 MG PO SCH (20:46)
[2019-01-04] MEDS: SPIRIVA Respimat* (tiotropium) 2.5 mcg/inh Inhaler INH SCH (07:38)
[2019-01-04] MEDS: Mometasone/Formoter 200/5 MDI INH SCH ×2 (07:38→19:42)
[2019-01-04 07:52] LABS: ABS Eosinophils 0.3 10^3/ul (0-0.6); ABS Lymphocytes 1.3 10^3/ul (1.0-4.8); ABS Monocytes 0.4 10^3/ul (0-0.8); ABS Neutrophils 3.2 10^3/ul (1.5-7.7); Hematocrit 26 % (35-47); Hemoglobin 8.8 g/dL (12.0-16.0); Lymphocyte % 24.7 %; Mean Corpuscular HGB Conc 34 g/dL (31-36); Mean Corpuscular Hemoglobin 30 pg (27-31); Mean Corpuscular Volume 88 fL (80-97); Platelet Count 253 10^3/uL (150-450); Red Blood Count 2.96 10^6 /uL (3.70-4.87); Red Cell Distribution Width 17 % (10-15); White Blood Count 5.3 10^3/uL (3.5-10.8)
[2019-01-04] MEDS: lamoTRIgine TAB(*) 100 MG PO SCH ×2 (08:02→20:04)
[2019-01-04] MEDS: LEVODOPA PO SCH ×3 (08:02→16:57)
[2019-01-04] MEDS: clonazePAM TAB(*) 0.5 MG PO SCH ×3 (08:02→20:03)
[2019-01-04] MEDS: Cinacalcet TAB* 30 MG PO SCH ×2 (08:02→16:56)
[2019-01-04] MEDS: CARBIDOPA PO SCH ×3 (08:02→16:57)
--- NOTE | 2019-01-04 08:08 | PN ---
Subjective Date of Service: 01/04/19 Interval History: HD 6 on 01/04 73F parkinsons dz, c/b neurogenic bladder with recurrent UTIs, Bipolar d/o on lithium c/b hyperpara and hypercalcemia, mild cog impairment who presents w constipation, nausea and vomiting from underlying hyperCa and with e/o FTT Overnight, no acute events, currently has espinoza out (has had off and on for months), VSS Labs H/H stable, anemia This morning, pleasant well, discussed her overall GOC, would like to return to home, will think about pall care, she is easily overwhelmed and a bit cognitively impaired. Updated with POC, will bladder scan today for voiding trial, if fails she would like espinoza back in place. Discussed chornic colonization, rec'd Vanco x2 days, then d/c reasonable to start suppressive abx Family History: Unchanged from Admission Social History: Unchanged from Admission Past Medical History: Unchanged from Admission Objective Active Medications: Acetaminophen (Tylenol Tab*) 650 mg PO Q6H PRN PRN Reason: PAIN - MILD Last Admin: 01/03/19 13:55 Dose: 650 mg Aspirin (Aspirin Ec Tab*) 81 mg PO DAILY [facility] Last Admin: 01/03/19 12:01 Dose: 81 mg Bisacodyl (Dulcolax Supp*) 10 mg [place] DAILY [facility] Carbidopa/Levodopa (Carbidopa/Levodopa Odt (Nf)) 3 tab PO 0830,1300,1830 [facility] Last Admin: 01/04/19 08:02 Dose: 3 tab Cinacalcet (Sensipar Tab*) 30 mg PO BID WITH MEALS [facility] Last Admin: 01/04/19 08:02 Dose: 30 mg Clonazepam (Klonopin Tab(*)) 0.5 mg PO TID [facility] Last Admin: 01/04/19 08:02 Dose: 0.5 mg Docusate Sodium (Colace Cap*) 100 mg PO BID [facility] Last Admin: 01/03/19 20:45 Dose: 100 mg Sodium Chloride (Ns 0.9% 1000 Ml) 1,000 mls @ 100 mls/hr IV PER RATE [facility] Last Admin: 01/02/19 21:16 Dose: 100 mls/hr Lamotrigine (Lamictal Tab(*)) 100 mg PO BID [facility] Last Admin: 01/04/19 08:02 Dose: 100 mg Lindrith Carbonate (Lindrith Carbonate Er (Nf)) 300 mg PO BID [facility]; Protocol Last Admin: 01/03/19 20:45 Dose: 300 mg Mirtazapine (Remeron Tab*) 15 mg PO BEDTIME [facility] Last Admin: 01/03/19 20:46 Dose: 15 mg Mometasone Furoate/Formoterol Fumar (Dulera 200/5 Mdi*) 2 puff INH BID [facility]; Protocol Last Admin: 01/04/19 07:38 Dose: 2 puff Ondansetron HCl (Zofran Inj*) 4 mg IV Q6H PRN PRN Reason: NAUSEA Last Admin: 01/03/19 20:49 Dose: 4 mg Pantoprazole Sodium (Protonix Tab*) 40 mg PO BID [facility] Last Admin: 01/03/19 20:46 Dose: 40 mg Pharmacy Profile Note (Scopolamine Patch Remove*) 1 note PATCH OFF Q72H [facility] Last Admin: 01/02/19 14:39 Dose: 1 patch Polyethylene Glycol/Electrolytes (Miralax*) 17 gm PO BID [facility] Last Admin: 01/03/19 20:45 Dose: 17 gm Propranolol HCl (Inderal Tab*) 10 mg PO QAM [facility] Last Admin: 01/03/19 09:38 Dose: 10 mg Psyllium Hydrophilic Mucilloid (Metamucil William*) 1 pkt PO DAILY [facility] Scopolamine (Transderm-Scop 1.5 Mg Patch*) 1 patch TRANSDERM Q72H [facility] Last Admin: 01/02/19 14:33 Dose: 1 patch Sertraline HCl (Zoloft*) 150 mg PO 1130 [facility] Last Admin: 01/03/19 11:59 Dose: 150 mg Tamsulosin HCl (Flomax Cap*) 0.4 mg PO BEDTIME [facility] Last Admin: 01/03/19 20:45 Dose: 0.4 mg Tiotropium [place] (Spiriva Respimat 2.5 Mcg) 1 puff INH DAILY [facility] Last Admin: 01/04/19 07:38 Dose: 1 puff Vital Signs - 8 hr 01/04/19 01/04/19 01/04/19 03:15 07:40 08:02 Temperature 98 F Pulse Rate 63 68 Respiratory 18 18 16 Rate Blood Pressure 135/74 (mmHg) O2 Sat by Pulse 95 90 Oximetry Oxygen Devices in Use Now: None Appearance: Pleasant but frail woman in NAD Eyes: No Scleral Icterus Ears/Nose/Mouth/Throat: NL Teeth, Lips, Gums Respiratory: Symmetrical Chest Expansion and Respiratory Effort Cardiovascular: NL Sounds; No Murmurs; No JVD, RRR Abdominal: NL Sounds; No Tenderness; No Distention, No Hepatosplenomegaly Lymphatic: No Cervical Adenopathy Extremities: No Edema Skin: No Rash or Ulcers Neurological: - - Oriented to self and hospital Result Diagrams: 01/04/19 06:56 01/03/19 11:36 Microbiology and Other Data: . Assess/Plan/Problems-Billing Assessment: 73F parkinsons dz, c/b neurogenic bladder with recurrent UTIs, Bipolar d/o on lithium c/b hyperpara and hypercalcemia, mild cog impairment who presents w constipation, nausea and vomiting from underlying hyperCa and with e/o FTT - Patient Problems (1) Constipation Current Visit: No Status: Acute Code(s): K59.00 - CONSTIPATION, UNSPECIFIED SNOMED Code(s): 35662403 Comment: - BM 3 days ago - Question if constipation contributes to nausea and vomiting. - Likely from immobility and hypercalcemia (on presentation), Parkinsons, and medications. - Continue PPI to BID, Miralax BID, Start Lactulose TID (2) Nausea & vomiting Current Visit: Yes Status: Acute Code(s): R11.2 - NAUSEA WITH VOMITING, UNSPECIFIED SNOMED Code(s): 71331172 Comment: - GI consulted, started BID PPI and mirlax BID, gastric emptying study completed - normal exam - Could be associated with constipation, no other cause identified - GI recommended psych consult for medication recommendations, psych notes that patient has been on the same meds since 2014, no indication that psych meds are contributing - Continue scopolamine patch, zofran, unable to add compazine or reglan given interactions with other medications (3) Malnutrition Current Visit: Yes Status: Acute Code(s): E46 - UNSPECIFIED PROTEIN-CALORIE MALNUTRITION SNOMED Code(s): 00501443 Comment: - Patient has had weight loss in the past 3 months, reported weight on 12/14 -127 Documented weight now 107 - Nutritional consult - recommended ensure clear - patient refused - Suspect that this is FTT, discussed hospice with family at length today, they are willing to hear about services (4) Hyperparathyroidism due to lithium therapy Current Visit: No Status: Acute Code(s): E21.1 - SECONDARY HYPERPARATHYROIDISM, NOT ELSEWHERE CLASSIFIED SNOMED Code(s): 128789259 Comment: - Hypercalcemia chronic and likely worsened by immobility. Evaluated by Dr. Mark last admission: recommended medical management. Discontinuation of lithium deemed not a viable option due to successful mood stabilization. No parathyroid adenoma on US. - Cont sensipar (5) Neurogenic bladder Current Visit: No Status: Acute Code(s): N31.9 - NEUROMUSCULAR DYSFUNCTION OF BLADDER, UNSPECIFIED SNOMED Code(s): 217932237 Comment: - With urinary retention and chronic espinoza. - Failed voiding trial, espinoza to be replaced in near future as they are unable to commit to straight cath. - Continue Flomax. (6) Parkinson disease Current Visit: No Status: Acute Code(s): G20 - PARKINSON'S DISEASE SNOMED Code(s): 89012866 Comment: - cont Sinimet - ODT given recent nausea/vomiting. 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 - Continue [place], Lamotrigine, clonazepam, mirtazapine, sertraline . (8) COPD (chronic obstructive pulmonary disease) Current Visit: No Status: Chronic Priority: High Code(s): J44.9 - CHRONIC OBSTRUCTIVE PULMONARY DISEASE, UNSPECIFIED SNOMED Code(s): 02436772 Comment: - asymptomatic - continue Spiriva, Symbicort (9) Dementia Current Visit: No Status: Chronic Priority: High Code(s): F03.90 - UNSPECIFIED DEMENTIA WITHOUT BEHAVIORAL DISTURBANCE SNOMED Code(s): 35888572 Comment: - Continue with supportive care, (10) HTN (hypertension) Current Visit: No Status: Chronic Priority: High Code(s): I10 - ESSENTIAL (PRIMARY) HYPERTENSION SNOMED Code(s): 62957456 Comment: - Controlled. Continue propranolol (11) DVT prophylaxis Current Visit: No Status: Acute Priority: Medium Code(s): KLP6685 - SNOMED Code(s): 086813726 Comment: - SCD's (12) Full code status Current Visit: No Status: Acute Code(s): Z78.9 - OTHER SPECIFIED HEALTH STATUS SNOMED Code(s): 593836097 Comment: Status and Disposition: Long GOC discussion with patient and family, they are considering this may reflect a decline in her status, willing to meet to hear about palliative approach. They are interested in appetite stimulant
[2019-01-04] MEDS: Polyethylene Glycol 3350* 17 GM PACKET PO SCH ×2 (08:09→20:05)
[2019-01-04] MEDS: Propranolol TAB* 10 MG PO SCH (09:13)
[2019-01-04] MEDS: CMCS: Lithium Carbonate ER (NF) 300 MG TAB.ER PO SCH ×2 (09:13→20:16)
[2019-01-04] MEDS: Pantoprazole TAB * 40 MG TAB PO SCH ×2 (09:13→20:04)
[2019-01-04] MEDS: Psyllium PAK PO SCH (09:13)
[2019-01-04] MEDS: Aspirin EC TAB* 81 MG TAB.EC PO SCH (09:13)
[2019-01-04] MEDS: Docusate CAP* 100 MG PO SCH ×2 (09:13→20:04)
[2019-01-04] MEDS: Ondansetron INJ* 2 MG/ML VIAL IV PRN ×2 (12:35→20:03)
[2019-01-04] MEDS: Sertraline* 100 MG TAB PO SCH (13:45)
[2019-01-04] MEDS: Bisacodyl SUPP* 10 MG SUPP PR SCH (14:52)
[2019-01-04] MEDS: Lactulose* 15 ML UDC PO SCH ×2 (16:55→20:04)
[2019-01-04] MEDS: Dronabinol CAP* 2.5 MG PO SCH (16:56)
[2019-01-04] MEDS: Tamsulosin CAP* 0.4 MG PO SCH (20:03)
[2019-01-04] MEDS: Mirtazapine TAB* 15 MG PO SCH (20:04)
[2019-01-05] MEDS: SPIRIVA Respimat* (tiotropium) 2.5 mcg/inh Inhaler INH SCH (07:26)
[2019-01-05] MEDS: Mometasone/Formoter 200/5 MDI INH SCH ×2 (07:27→20:08)
[2019-01-05] MEDS: LEVODOPA PO SCH ×3 (07:51→20:21)
[2019-01-05] MEDS: clonazePAM TAB(*) 0.5 MG PO SCH ×3 (07:51→20:29)
[2019-01-05] MEDS: CARBIDOPA PO SCH ×3 (07:51→20:21)
[2019-01-05] MEDS: Dronabinol CAP* 2.5 MG PO SCH ×3 (07:51→17:30)
[2019-01-05] MEDS: lamoTRIgine TAB(*) 100 MG PO SCH ×2 (07:51→20:40)
[2019-01-05] MEDS: Cinacalcet TAB* 30 MG PO SCH ×2 (07:53→17:30)
[2019-01-05] MEDS: Polyethylene Glycol 3350* 17 GM PACKET PO SCH ×2 (07:56→20:34)
--- NOTE | 2019-01-05 08:46 | PN ---
Subjective Date of Service: 01/05/19 Interval History: HD 7 on 01/05 73F parkinsons dz, c/b neurogenic bladder with recurrent UTIs, Bipolar d/o on lithium c/b hyperpara and hypercalcemia, mild cog impairment who presents w constipation, nausea and vomiting from underlying hyperCa and with e/o FTT Interim: Overnight, no acute events, currently has espinoza out (has had off and on for months), VSS Labs H/H stable, anemia Had 2 large BM, responsive to Lactulose, started marinol This morning, pleasant well, discussed her overall GOC, would like to return to home, will think about pall care at home, she is open to [facility] referral which I can make recommendation to Dr. Leal, she is easily overwhelmed and a bit cognitively impaired. Updated with POC, continues to have urinary retention, opting for espinoza tomorrow prior to d/c Family History: Unchanged from Admission Social History: Unchanged from Admission Past Medical History: Unchanged from Admission Objective Active Medications: Acetaminophen (Tylenol Tab*) 650 mg PO Q6H PRN PRN Reason: PAIN - MILD Last Admin: 01/03/19 13:55 Dose: 650 mg Aspirin (Aspirin Ec Tab*) 81 mg PO DAILY [facility] Last Admin: 01/04/19 09:13 Dose: 81 mg Bisacodyl (Dulcolax Supp*) 10 mg [place] DAILY [facility] Last Admin: 01/04/19 14:52 Dose: Not Given Carbidopa/Levodopa (Carbidopa/Levodopa Odt (Nf)) 3 tab PO 0830,1300,1830 [facility] Last Admin: 01/05/19 07:51 Dose: 3 tab Cinacalcet (Sensipar Tab*) 30 mg PO BID WITH MEALS [facility] Last Admin: 01/05/19 07:53 Dose: 30 mg Clonazepam (Klonopin Tab(*)) 0.5 mg PO TID [facility] Last Admin: 01/05/19 07:51 Dose: 0.5 mg Docusate Sodium (Colace Cap*) 100 mg PO BID [facility] Last Admin: 01/04/19 20:04 Dose: 100 mg Dronabinol (Marinol Cap*) 2.5 mg PO AC [facility] Last Admin: 01/05/19 07:51 Dose: 2.5 mg Lactulose (Lactulose*) 15 ml PO TID [facility] Last Admin: 01/04/19 20:04 Dose: 15 ml Lamotrigine (Lamictal Tab(*)) 100 mg PO BID [facility] Last Admin: 01/05/19 07:51 Dose: 100 mg [place] Carbonate ([place] Carbonate Er (Nf)) 300 mg PO BID [facility]; Protocol Last Admin: 01/04/19 20:16 Dose: 300 mg Mirtazapine (Remeron Tab*) 15 mg PO BEDTIME [facility] Last Admin: 01/04/19 20:04 Dose: 15 mg Mometasone Furoate/Formoterol Fumar (Dulera 200/5 Mdi*) 2 puff INH BID [facility]; Protocol Last Admin: 01/05/19 07:27 Dose: 2 puff Ondansetron HCl (Zofran Inj*) 4 mg IV Q6H PRN PRN Reason: NAUSEA Last Admin: 01/04/19 20:03 Dose: 4 mg Pantoprazole Sodium (Protonix Tab*) 40 mg PO BID [facility] Last Admin: 01/04/19 20:04 Dose: 40 mg Pharmacy Profile Note (Scopolamine Patch Remove*) 1 note PATCH OFF Q72H [facility] Last Admin: 01/02/19 14:39 Dose: 1 patch Polyethylene Glycol/Electrolytes (Miralax*) 17 gm PO BID [facility] Last Admin: 01/05/19 07:56 Dose: 17 gm Propranolol HCl (Inderal Tab*) 10 mg PO QAM [facility] Last Admin: 01/04/19 09:13 Dose: 10 mg Psyllium Hydrophilic Mucilloid (Metamucil William*) 1 pkt PO DAILY [facility] Last Admin: 01/04/19 09:13 Dose: 1 pkt Scopolamine (Transderm-Scop 1.5 Mg Patch*) 1 patch TRANSDERM Q72H [facility] Last Admin: 01/02/19 14:33 Dose: 1 patch Sertraline HCl (Zoloft*) 150 mg PO 1130 [facility] Last Admin: 01/04/19 13:45 Dose: 150 mg Tamsulosin HCl (Flomax Cap*) 0.4 mg PO BEDTIME [facility] Last Admin: 01/04/19 20:03 Dose: 0.4 mg Tiotropium [place] (Spiriva Respimat 2.5 Mcg) 1 puff INH DAILY [facility] Last Admin: 01/05/19 07:26 Dose: 1 puff Vital Signs - 8 hr 01/05/19 01/05/19 01/05/19 03:07 07:45 07:51 Temperature 97.9 F 98.3 F Pulse Rate 59 77 Respiratory 18 20 16 Rate Blood Pressure 122/72 123/73 (mmHg) O2 Sat by Pulse 94 90 Oximetry Oxygen Devices in Use Now: None Appearance: Pleasant frail woman in NAD Eyes: No Scleral Icterus, PERRLA Ears/Nose/Mouth/Throat: NL Teeth, Lips, Gums Neck: NL Appearance and Movements; NL JVP Respiratory: Symmetrical Chest Expansion and Respiratory Effort, Clear to Auscultation Cardiovascular: NL Sounds; No Murmurs; No JVD, RRR Abdominal: NL Sounds; No Tenderness; No Distention, No Hepatosplenomegaly Lymphatic: No Cervical Adenopathy Extremities: No Edema Skin: No Rash or Ulcers Neurological: - - Oriented to person, place, roughly time, not to gravity of situation Result Diagrams: 01/04/19 06:56 01/03/19 11:36 Assess/Plan/Problems-Billing Assessment: 73F parkinsons dz, c/b neurogenic bladder with recurrent UTIs, Bipolar d/o on lithium c/b hyperpara and hypercalcemia, mild cog impairment who presents w constipation, nausea and vomiting from underlying hyperCa and with e/o FTT - Patient Problems (1) Constipation Current Visit: No Status: Acute Code(s): K59.00 - CONSTIPATION, UNSPECIFIED SNOMED Code(s): 56757366 Comment: - BM yesterday - Constipation seems to trigger N/V - Likely from immobility and hypercalcemia (on presentation), Parkinsons, and medications. - Continue PPI to BID, Miralax BID, Lactulose TID (2) Nausea & vomiting Current Visit: Yes Status: Acute Code(s): R11.2 - NAUSEA WITH VOMITING, UNSPECIFIED SNOMED Code(s): 36893788 Comment: - GI consulted, started PPI and mirlax BID, gastric emptying study completed - normal exam - Again triggered by constipation - GI recommended psych consult for medication recommendations, psych notes that patient has been on the same meds since 2014, no indication that psych meds are contributing - Continue scopolamine patch, zofran, marinol (3) FTT (failure to thrive) in adult Current Visit: Yes Status: Acute Comment: - Patient has had weight loss in the past 3 months, reported weight on 12/14 -127 Documented weight now 107 - Nutritional consult - recommended ensure clear - patient refused - Suspect that this is FTT, discussed hospice with family at length today, they are willing to hear about services on outpt and go with PATH referral - Marinol started, they are open to medical marijuana as well and information given (4) Hyperparathyroidism due to lithium therapy Current Visit: No Status: Acute Code(s): E21.1 - SECONDARY HYPERPARATHYROIDISM, NOT ELSEWHERE CLASSIFIED SNOMED Code(s): 756176469 Comment: - Hypercalcemia chronic and likely worsened by immobility. Evaluated by Dr. Mark last admission: recommended medical management. Discontinuation of lithium deemed not a viable option due to successful mood stabilization. No parathyroid adenoma on US. - Cont sensipar (5) Neurogenic bladder Current Visit: No Status: Acute Code(s): N31.9 - NEUROMUSCULAR DYSFUNCTION OF BLADDER, UNSPECIFIED SNOMED Code(s): 414289872 Comment: - With urinary retention and chronic espinoza. - Failed voiding trial, espinoza to be replaced in near future as they are unable to commit to straight cath. - Continue Flomax. (6) Parkinson disease Current Visit: No Status: Acute Code(s): G20 - PARKINSON'S DISEASE SNOMED Code(s): 66885801 Comment: - cont Sinimet - ODT given recent nausea/vomiting. (7) Bipolar disorder Current Visit: No Status: Chronic Priority: High Comment: - Stable - Complex, residential Psych follow up with Dr Torres. - Continue [place], Lamotrigine, clonazepam, mirtazapine, sertraline . (8) COPD (chronic obstructive pulmonary disease) Current Visit: No Status: Chronic Priority: High Code(s): J44.9 - CHRONIC OBSTRUCTIVE PULMONARY DISEASE, UNSPECIFIED SNOMED Code(s): 69806735 Comment: - asymptomatic - continue Spiriva, Symbicort (9) Dementia Current Visit: No Status: Chronic Priority: High Code(s): F03.90 - UNSPECIFIED DEMENTIA WITHOUT BEHAVIORAL DISTURBANCE SNOMED Code(s): 29336462 Comment: - Continue with supportive care, (10) HTN (hypertension) Current Visit: No Status: Chronic Priority: High Code(s): I10 - ESSENTIAL (PRIMARY) HYPERTENSION SNOMED Code(s): 77460911 Comment: - Controlled. Continue propranolol (11) DVT prophylaxis Current Visit: No Status: Acute Priority: Medium Code(s): FHU3566 - SNOMED Code(s): 311241679 Comment: - SCD's (12) Full code status Current Visit: No Status: Acute Code(s): Z78.9 - OTHER SPECIFIED HEALTH STATUS SNOMED Code(s): 704315966 Comment: Status and Disposition: Long GOC discussion with patient and family, they are considering this may reflect a decline in her status, willing to consider palliative approach but want PATH referral as not ready to discuss hospice inpatient, also willing to discuss code status as they do not feel FULL represents her true wishes Dc tomorrow
[2019-01-05] MEDS: Lactulose* 15 ML UDC PO SCH ×4 (09:29→21:59)
[2019-01-05] MEDS: Docusate CAP* 100 MG PO SCH ×2 (09:30→22:01)
[2019-01-05] MEDS: Propranolol TAB* 10 MG PO SCH (09:30)
[2019-01-05] MEDS: Aspirin EC TAB* 81 MG TAB.EC PO SCH (09:30)
[2019-01-05] MEDS: CMCS: Lithium Carbonate ER (NF) 300 MG TAB.ER PO SCH ×2 (09:30→22:07)
[2019-01-05] MEDS: Pantoprazole TAB * 40 MG TAB PO SCH ×2 (09:30→22:11)
[2019-01-05] MEDS: Psyllium PAK PO SCH (09:39)
[2019-01-05] MEDS: Bisacodyl SUPP* 10 MG SUPP PR SCH (09:39)
[2019-01-05] MEDS: Sertraline* 100 MG TAB PO SCH (14:42)
[2019-01-05] MEDS: Scopolamine 1.5 mg* PATCH TRANSDERM SCH (14:45)
[2019-01-05] MEDS: Scopolamine PATCH Remove* 1 NOTE MISC PATCH OFF SCH (14:46)
[2019-01-05] MEDS: Ondansetron INJ* 2 MG/ML VIAL IV PRN (15:22)
[2019-01-05] MEDS ORDERED: Ondansetron TAB* 4 MG PO PRN (18:47)
[2019-01-05] MEDS: Mirtazapine TAB* 15 MG PO SCH (22:01)
[2019-01-05] MEDS: Tamsulosin CAP* 0.4 MG PO SCH (22:07)
[2019-01-06] MEDS: Docusate CAP* 100 MG PO SCH ×2 (00:23→08:10)
--- NOTE | 2019-01-06 04:12 | DS ---
CC: Dr. Angela Leal; Dr. Ysabel Sharp * DISCHARGE SUMMARY: DATE OF ADMISSION: 12/30/18 DATE OF DISCHARGE: 01/06/19 STATUS AT THE TIME OF DISCHARGE: Stable to be discharged to home. PRIMARY CARE PROVIDER: Dr. Angela Leal. NEUROLOGIST: Dr. Ysabel Sharp. PRIMARY DIAGNOSES: 1. Nausea and vomiting. 2. Constipation. 3. Failure to thrive. SECONDARY DIAGNOSES: 1. Parkinson's disease complicated by neurogenic bladder. 2. Recurrent urinary tract infections. 3. Bipolar disorder, on lithium. 4. Hyperparathyroidism secondary to lithium use. 5. Hypercalcemia secondary to hyperparathyroidism. 6. Mild cognitive impairment. 7. Hypertension. MEDICATIONS AT THE TIME OF DISCHARGE: 1. Aspirin 81 mg p.o. daily. 2. Budesonide and formoterol 2 puffs inhaled b.i.d. 3. Carbidopa and levodopa 25/100 mg 3 tabs p.o. t.i.d. 4. Sensipar 30 mg p.o. b.i.d. with meals. 5. Clonazepam 0.5 mg p.o. t.i.d. 6. Lamotrigine 100 mg p.o. b.i.d. 7. [place] 300 mg p.o. b.i.d. 8. Mirtazapine 15 mg p.o. q.h.s. 9. Omeprazole 40 mg p.o. b.i.d. 10. Propranolol 10 mg p.o. q.a.m. 11. Sertraline 150 mg p.o. q.a.m. 12. Tiotropium 1 puff inhaled daily. 13. Bisacodyl 10 mg per rectum daily p.r.n. for severe constipation. 14. Docusate sodium 100 mg p.o. b.i.d. standing for constipation. 15. Dronabinol 2.5 mg p.o. a.c., MDD 3. 16. Lactulose 15 mL p.o. t.i.d. standing, may hold if greater than 2 bowel movements in 1 day. 17. Omeprazole 40 mg p.o. q.a.m. 18. Polyethylene glycol 17 g p.o. b.i.d. 19. Scopolamine 1 patch transdermally q.72 hours. 20. Tamsulosin 0.4 mg p.o. q.h.s. 21. Vitamin B12 500 mcg p.o. b.i.d. 22. Probiotic 1 cap p.o. daily. 23. Magnesium oxide 400 mg p.o. daily. 24. Nitrofurantoin 100 mg p.o. daily. 25. Ondansetron 4 mg p.o. q.6 hours p.r.n. for nausea and vomiting. Medication changes on this hospitalization include the addition of: 1. Lactulose 15 mL t.i.d. with the option to hold if already had bowel movements or loose bowel movements in process. 2. The up-titration of MiraLAX from once daily to twice daily. 3. Dronabinol 2.5 mg p.o. a.c. 4. The addition of nitrofurantoin 100 mg p.o. daily. Otherwise, no medication changes while on this hospitalization. HISTORY OF PRESENT ILLNESS AND HOSPITAL COURSE: A 73-year-old female with above past medical history, who has had 7 visits to hospital since 10/16/18 for nausea, vomiting, constipation, weakness, and dehydration, presents to the hospital several days after being discharged again with chief complaint of vomiting for several days, unable to keep anything down and unable to take her medications, notably her Sinemet. Her brings her back into the emergency room for again nausea, vomiting, and constipation, last bowel movement noted 4 days prior to admission. In the emergency room, the patient had normal vital signs. She had labs drawn that showed a white count of 12.5, but no other acute abnormalities and she was admitted for symptomatic control of nausea, vomiting, and constipation. HOSPITAL COURSE BY PROBLEM: 1. Nausea and vomiting. The patient has had multiple hospitalizations for the same and it is thought that this is somehow triggered by her constipation. Her constipation is likely driven by her hypercalcemia. Psychiatry as well as GI had been consulted in the past to discuss if her polypharmacy is contributing to her hypercalcemia particularly in the light of her using lithium, although the family has elected not to change her medications and since the prior was added roughly in October 2018 to manage her hypercalcemia alone. For the nausea and vomiting, the patient is already on scopolamine patch. Zofran, Reglan, and Compazine interacted with other medications and therefore are not continued. The patient is already managed on PPI. She was given fluids, IV ondansetron. Continued scopolamine patch and supportive care as well as aggressive bowel regimen to help to determine what triggered her nausea and vomiting. GI was consulted who recommended aggressive bowel regimen. They also performed a gastric emptying study, which was unremarkable and showed normal gastric motility. Ultimately, her nausea and vomiting improved as her constipation improved. The patient is tolerating diet by the day of discharge. 2. Constipation. As per above, this is likely triggered by hypercalcemia in the setting of lithium use and hyperparathyroidism. She is already on Sensipar. This was continued. She was given IV fluids. She is already on the following bowel regimen, which was MiraLAX daily, docusate, and senna daily. Her MiraLAX was increased to twice a day and ultimately lactulose was added 3 times a day standing with option to hold. Thus, the patient has already had bowel movement of which she had excellent results to. She also has the option for bisacodyl per rectum, although likely I think her having an aggressive bowel regimen with agents that she responds to is the most helpful thing in terms of her symptom control with chronic constipation as well as staying hydrated. She will be discharged with the addition of MiraLAX going to twice a day and lactulose 3 times a day with the option to hold lactulose if she has already had a bowel movement that day. 3. Recurrent hospitalizations, weight loss, and above symptoms. The patient's weight loss on repeated hospitalizations, noted weight was 127 at the beginning of the summer. She is now 107 pounds reflecting 20 pounds of weight loss in 8 weeks in the setting of frequent hospitalizations, nausea, vomiting, constipation, represents signs of failure to thrive that meet criteria for failure to thrive in the adult. This diagnosis was discussed with the patient and her family and the suggestion regarding whether this represents an overall clinical decline from a Parkinson's standpoint was brought up favored by second opinion with Neurology, which is reasonable though clearly her symptom management has been a struggle since October. Goals of care discussion was had as documented as per below. Nutrition met with the patient who recommended Ensure , although the patient refused it at this time. 4. Hyperparathyroidism due to lithium therapy. Her hypercalcemia is a result of this and it is likely worsened by immobility. The patient has been evaluated by Endocrine on her last admission, who recommended medical management. Discontinuation of lithium is deemed not a viable option due to successful mood stabilization. There was no parathyroid adenoma that has been seen on ultrasound since the prior was continued. 5. Neurogenic bladder. This is an unfortunate late complication of Parkinson' s. She has had intermittent urinary retention and intermittent Capellan since August of 2018. Again, the patient presents with neurogenic bladder and failed a voiding trial. The option discussed with the family was to provide intermittent straight cath'ing or to have a chronic Capellan and ultimately, the patient and her family felt that Capellan was the easiest option until they could provide adequate staffing to train all staff for intermittent straight cath. Furthermore, the patient's family feels strongly about continuing Flomax, which is reasonable to do so and certainly kept her from a mixed incontinence picture , although discussed that the cause of her neurogenic bladder was more of an autonomic dysfunction in the setting of advanced Parkinson's disease and not exactly a true stress incontinence in which Flomax would be most efficacious; nonetheless, the patient is discontinued on the Capellan, which was placed on 01/06 and Flomax can be continued. 6. Frequent urinary tract infections. The patient is having a common complication of neurogenic bladder with stasis in the bladder. Microbiology from urine on this hospitalization showed enterococcus with resistance to fluoroquinolones and thus shows susceptibility to nitrofurantoin and she was treated for only 2 days, but then suppression dose nitrofurantoin was started at the request of the family, which was reasonable given her ongoing chronic complications and in light of ongoing discussion with other goals of care. Nitrofurantoin 100 mg is prescribed on discharge can be discontinued by primary care if they feel uncomfortable with it or if the risk of nitrofurantoin lung injury in elderly women poses to be too high. 7. Bipolar disorder. The patient has a long history with psychiatric followup with Dr. Torres. She is on lithium, lamotrigine, clonazepam, mirtazapine, and sertraline longstanding, and psychiatric services have been consulted as an inpatient during this hospitalization, who recommend no changes. 8. Parkinson's disease. The patient is on Sinemet t.i.d., follows with Dr. Ysabel Sharp. Overall, her decline in neurogenic bladder standpoint as well as some of her cognitive capability is seen to have progressed likely since August of 2018 and her failure to thrive may be associated with an overall progression in her Parkinson's disease, although it is explained to the that there are multifactorial reasons for the patient developing failure to thrive including psychiatric emotional symptom management and nutritional in general. The patient and family would like consultation with neurologist in [place] to discuss any other options, although she does not have significant movement complications that seem that most of her failure to thrive has been saddled around constipation, nausea, and vomiting from her hypercalcemia and recurrent UTIs, which have been difficult to control. 9. Chronic obstructive pulmonary disease. Her home medications are continued. No evidence of flare. 10. Hypertension. Her propranolol was continued. 11. Goals of care. On 01/04/19 and 01/05/19 several goals of care discussions were held with this patient and her family. The patient is understandably frustrated and concerned about her recent decline in health and the discussion of hospice in terms of changing her shift of philosophy was made given how much time she has been in the hospital. The patient herself feels that she is not ready for hospice services, but does appreciate an invitation to meet with the [facility] and palliative team and would be open to a PATH nurse coming to the home to discuss better symptom management within her living situation. Furthermore, maira discussion about her code status was has not had and it seems that her current desires to engage in care are not consistent with full code measures. The patient often declines or refuses care stating that she is tired of being in the hospital, although both she and her understand that her current advance directives point out that she would want no limitations to all medical care. They, in fact, think that her advance directive should reflect do not resuscitate picture, although they were unable to comment to changing the MOLST form over the last 2 days of her hospitalization, although they did take MOLST and agreed to review with PATH nurse as well as the hospice nurse, who is a close family friend with them, which seems reasonable. Furthermore, discussions with the primary care can be had to redefine code status in the setting of her chronic and incurable illness with recent complication and failure to thrive. Overall, we discussed that the palliative approach seems to be most helpful for Ms. Nelson and she has responded well to aggressive bowel regimen focused on pain or discomfort control. She has responded well to trials of Marinol and she and her family are given the information about medical marijuana to determine if this may be a helpful adjunctive therapy for her in terms of anxiety, appetite stimulation, and nausea release and they are open to seeking non-medical treatments and alternatives and adjunctive approaches to traditional care that may give her some benefit. Continued discussions with primary care can be had and I can reach out to primary care directly to discuss the nature of our conversation during the last 2 days of this hospitalization. Overall, on the day of discharge, the patient is tolerating diet, ambulating, and voiding. She continues to have neurogenic bladder and the Capellan is replaced as per failed voiding trial for 3 days from 01/03/19 to 01/06/19 where the patient continues to retain; ultimately, they may decide for straight cath later. LABS AND STUDIES DONE DURING THIS HOSPITALIZATION: On 01/04/19, labs show white blood cell count of 5.3, hemoglobin 8.8, hematocrit 26, and platelets 253. BMP last done on 01/03/19 shows sodium 139, potassium 3.5, chloride 111, carbon dioxide 25, BUN 5, creatinine 0.68, and glucose 87. Imaging done during this hospitalization includes a gastric emptying nuclear medicine scan that shows normal study. Chest x-ray done, on 12/30/18, shows stigmata of chronic obstructive COPD, but no acute pulmonary or cardiac process. Abdominal x-ray, done on 12/30/18, shows no evidence of small bowel obstruction. CONSULTANTS DURING THIS HOSPITALIZATION: Include GI. ITEMS TO FOLLOW UP ON STATUS POST DISCHARGE: 1. Continued goals of care. The patient and her family are interested in [facility] and continued discussions with goals of care and redefining code status. 2. Failure to thrive. Marinol was started during this hospitalization and can be discontinued. 3. Chronic UTI with neurogenic bladder. Nitrofurantoin was started during this hospitalization and can be discontinued at primary care's discretion seems reasonable as a palliative approach was what the patient and her family elected with a focus on symptom relief, dignity during this time. Furthermore, the patient and her family are interested in exploring intermittent straight cath as opposed to chronic Capellan, which certainly is a discussion that can be had with Dr. Abbott, the patient's urologist, whom she follows with. 4. Constipation. Her constipation seems secondary to immobility coupled with hypercalcemia and she has required an aggressive bowel regimen to address her symptoms. Lactulose was added and this can be changed if her needs exchange engineer the course of time. Discussed with the patient and her family about these small medication changes will continue to happen over the course of her life and the focus really is on symptom relief and function and outcome as opposed to what specific medications are working at certain times. Overall, the patient is stable to return to home and discharge medications called in. They have no further questions. Plan of care was discussed with the patient and her as they continue to await her options in an outpatient setting. TIME SPENT: Forty-five minutes was spent on the planning of this discharge with over half of that was spent directly at the bedside of the patient providing direct patient care. If there are any questions about the care of this patient during this hospitalization, please do not hesitate to reach out and contact me directly. My cell phone is [phone]. This hospitalization was in total 8 days and this summary represents a disposition of all the care given during this hospitalization. If there are any specific questions, please review medical chart directly. [id number]/CPS #: [id number] NEMO
[2019-01-06 07:55] VITALS: BP 127/67
[2019-01-06] MEDS: Lactulose* 15 ML UDC PO SCH (08:07)
[2019-01-06] MEDS: Polyethylene Glycol 3350* 17 GM PACKET PO SCH (08:07)
[2019-01-06] MEDS: Pantoprazole TAB * 40 MG TAB PO SCH (08:08)
[2019-01-06] MEDS: lamoTRIgine TAB(*) 100 MG PO SCH (08:08)
[2019-01-06] MEDS: Cinacalcet TAB* 30 MG PO SCH (08:09)
[2019-01-06] MEDS: Psyllium PAK PO SCH (08:09)
[2019-01-06] MEDS: Aspirin EC TAB* 81 MG TAB.EC PO SCH (08:10)
[2019-01-06] MEDS: clonazePAM TAB(*) 0.5 MG PO SCH (08:10)
[2019-01-06] MEDS: Propranolol TAB* 10 MG PO SCH (08:10)
[2019-01-06] MEDS: CMCS: Lithium Carbonate ER (NF) 300 MG TAB.ER PO SCH (08:10)
[2019-01-06] MEDS: LEVODOPA PO SCH (08:19)
[2019-01-06] MEDS: Bisacodyl SUPP* 10 MG SUPP PR SCH (08:19)
[2019-01-06] MEDS: CARBIDOPA PO SCH (08:19)
[2019-01-06] MEDS: Mometasone/Formoter 200/5 MDI INH SCH (08:31)
[2019-01-06] MEDS: SPIRIVA Respimat* (tiotropium) 2.5 mcg/inh Inhaler INH SCH (08:31)
[2019-01-06] MEDS: Dronabinol CAP* 2.5 MG PO SCH (09:12)
== END 2019-01-06 10:15 | disposition home health service (06) | DRG 392 ==
LOC: ED 09:55 → MED 13:34 → OBSVTOIN 01-01 14:22
PROVIDERS: ADMIT Internal Medicine; ATTEND Internal Medicine
DX: R11.2 Nausea with vomiting, unspecified (principal); E46 Unspecified protein-calorie malnutrition; Z68.1 Body mass index [BMI] 19.9 or less, adult; G20 Parkinson's disease; J44.9 Chronic obstructive pulmonary disease, unspecified; E83.52 Hypercalcemia; E86.0 Dehydration; N31.9 Neuromuscular dysfunction of bladder, unspecified; F03.90 Unspecified dementia, unspecified severity, without behavioral disturbance, psychotic disturbance, mood disturbance, and anxiety; K59.00 Constipation, unspecified; F31.9 Bipolar disorder, unspecified; F32.9 Major depressive disorder, single episode, unspecified; R53.1 Weakness; I10 Essential (primary) hypertension; R33.9 Retention of urine, unspecified; R62.7 Adult failure to thrive; K59.09 Other constipation; R33.8 Other retention of urine; N35.92 Unspecified urethral stricture, female; Z96.651 Presence of right artificial knee joint; Z87.440 Personal history of urinary (tract) infections; Z79.82 Long term (current) use of aspirin; Z79.51 Long term (current) use of inhaled steroids; Z79.899 Other long term (current) drug therapy; Z88.1 Allergy status to other antibiotic agents; Z88.2 Allergy status to sulfonamides; Z88.8 Allergy status to other drugs, medicaments and biological substances; Z87.891 Personal history of nicotine dependence
CPT/HCPCS: 36415; 71046; 74019; 78264; 80048; 80053; 80202; 81003; 81015; 82565; 83605; 83690; 83735; 83880; 84436; 84443; 84484; 84520; 85025; 85027; 87077; 87086; 87186; 93005; 94640; 99284; A9270-GY; A9541; G0378; G8978-GP-CL; G8979-GP-CK; J1644; J2405; J3370; J3535

== ENCOUNTER 2019-01-13 07:11 | Inpatient (IN) | payer MEDICARE ==
[2019-01-13] MEDS ORDERED: NS 0.9% 1000 ML** 1,000 ML IV ONE (07:49)
--- NOTE | 2019-01-13 07:50 | ED ---
Dizziness - HPI Summary HPI Summary: Pt is a 74 y/o F presenting to the ED brought in by EMS for weakness gradually worsening over the last couple of days. Her states she has been dehydrated, and that she just moved home yesterday from an assisted living place. She did not eat much yesterday d/t nausea, and everything the pt ate would be vomited up, including her medications. Her also reports an increase in fatigue. She denies fevers, diaphoresis, chills, CP, SOB, erythema of eyes, sore throat, cough, abd pain, dysuria, hematuria, myalgia, edema, rash , or dizziness. - History Of Current Complaint Chief Complaint: EDGeneral Stated Complaint: GENERAL WEAKNESS/NOT EATING PER EMS Time Seen by Provider: 01/13/19 07:23 Hx Obtained From: Patient, Family/Fitter Helper - Onset/Duration: Still Present, Gradually Timing: Days Severity Initially: Mild Severity Currently: Moderate Character: Weak Aggravating Factor(s): Nothing Alleviating Factor(s): Nothing Associated Signs And Symptoms: Positive: Nausea, Vomiting, Decreased Oral Intake , Change In Medication. Negative: Diaphoresis, Chest Pain, SOB, Fever, Chills - Allergies/Home Medications Allergies/Adverse Reactions: Allergies Allergy/AdvReac Type Severity Reaction Status Date / Time amoxicillin [From Augmentin] Allergy Rash Verified 12/24/18 07:37 clarithromycin Allergy Rash Verified 12/24/18 07:37 clavulanic acid Allergy Rash Verified 12/24/18 07:37 [From Augmentin] moxifloxacin Allergy Rash Verified 12/24/18 07:37 Sulfa (Sulfonamide Allergy Rash Verified 12/24/18 07:37 Antibiotics) PMH/Surg Hx/FS Hx/Imm Hx Previously Healthy: Yes Endocrine/Hematology History: Reports: Hx Thyroid Disease - [place] induced parathyroidism Denies: Hx Anticoagulant Therapy, Hx Diabetes, Hx Systemic Lupus Erythematosus Cardiovascular History: Denies: Hx Congestive Heart Failure, Hx Hypertension, Hx Pacemaker/ICD Respiratory History: Reports: Hx Chronic Obstructive Pulmonary Disease (COPD) Denies: Hx Asthma GI History: Denies: Hx Ulcer History: Reports: Other Problems/Disorders - neurogenic bladder, urethral stricture Denies: Hx Dialysis, Hx Renal Disease Musculoskeletal History: Reports: Hx Arthritis - RIGHT KNEE, Hx Orthopedic Injury, Other Musculoskeletal History - osteoarthritis, r hand ORIF, R TKR Denies: Hx Rheumatoid Arthritis, Hx Osteoporosis Comment Only: Hx Tendonitis - Osteoarthritis Sensory History: Reports: Hx Cataracts - not with Pt. Denies: Hx Contacts or Glasses, Hx Deafness, Hx Hearing Aid Opthamlomology History: Reports: Hx Cataracts - not with Pt. Denies: Hx Contacts or Glasses Neurological History: Reports: Hx Dementia, Other Neuro Impairments/Disorders - Parkinsons Psychiatric History: Reports: Hx Anxiety, Hx Depression, Hx Bipolar Disorder Denies: Hx Attention Deficit Hyperactivity Disorder, Hx Eating Disorder, Hx Panic Disorder, Hx Post Traumatic Stress Disorder, Hx Inpatient Treatment, Hx Community Mental Health Tx, Hx Schizophrenia, Hx Suicide Attempt, Hx of Violent Episodes Against Others, Hx Substance Abuse, Other Psychiatric Issues/Disorders - Cancer History Hx Chemotherapy: No Hx Radiation Therapy: No - Surgical History Surgery Procedure, Year, and Place: RIGHT KNEE REPLACEMENT 2012. LEFT OOPHERECTOMY 20 +YRS AGO. ORIF R HAND [facility] 10 Hx Anesthesia Reactions: No - Immunization History Date of Tetanus Vaccine: utd Date of Influenza Vaccine: fall 2017 Infectious Disease History: No Infectious Disease History: Denies: Hx Clostridium Difficile, Hx Hepatitis, Hx Human Immunodeficiency Virus (HIV), Hx of Known/Suspected MRSA, Hx Shingles, Hx Tuberculosis, Hx Known/ Suspected VRE, Hx Known/Suspected VRSA, History Other Infectious Disease, Traveled Outside the [place] in Last 30 Days - Family History Known Family History: Positive: Cardiac Disease, Respiratory Disease Negative: Renal Disease - Social History Alcohol Use: None Hx Substance Use: No Substance Use Type: Reports: None Hx Tobacco Use: Yes Smoking Status (MU): Former Smoker Type: Cigarettes Amount Used/How Often: patient states smoked 1 ppd Length of Time of Smoking/Using Tobacco: patient does not remember Have You Smoked in the Last Year: No Review of Systems Positive: Fatigue. Negative: Fever, Chills, Skin Diaphoresis Negative: Erythema Negative: Sore Throat Negative: Chest Pain Negative: Shortness Of Breath, Cough Positive: Vomiting, Nausea. Negative: Abdominal Pain Negative: dysuria, hematuria Negative: Myalgia, Edema Negative: Rash Neurological: Negative - dizziness, Other - lightheadedness Positive: Weakness All Other Systems Reviewed And Are Negative: Yes Physical Exam - Summary Physical Exam Summary: Constitutional: Cachectic, Alert. (-) Distressed Skin: Warm, Dry HENT: Normocephalic; Atraumatic Eyes: Conjunctiva normal Neck: Musculoskeletal ROM normal neck. (-) JVD, (-) Stridor, (-) Tracheal deviation Cardio: Rhythm regular, rate normal, Heart sounds normal; Intact distal pulses; The pedal pulses are 2+ and symmetric. Radial pulses are 2+ and symmetric. (-) Murmur Pulmonary/Chest wall: Effort normal. (-) Respiratory distress, (-) Wheezes, (-) Rales Abd: Soft, (-) tenderness, (-) Distension, (-) Guarding, (-) Rebound Musculoskeletal: (-) Edema Lymph: (-) Cervical adenopathy Neuro: Alert, Oriented x3 Psych: Mood and affect Normal : Dark yellow urine in espinoza bag Triage Information Reviewed: Yes Vital Signs On Initial Exam: Initial Vitals Temp Pulse Resp BP Pulse Ox 97.4 F 68 18 132/91 94 01/13/19 07:14 01/13/19 07:14 01/13/19 07:14 01/13/19 07:14 01/13/19 07:14 Vital Signs Reviewed: Yes Diagnostics - Vital Signs Vital Signs Temp Pulse Resp BP Pulse Ox 01/13/19 07:14 97.4 F 68 18 132/91 94 - Laboratory Result Diagrams: 01/13/19 08:04 01/13/19 08:04 Lab Statement: Any lab studies that have been ordered have been reviewed, and results considered in the medical decision making process. - Radiology CXR Radiology Interpretation Completed By: Radiologist Summary of Radiographic Findings: No acute cardiopulmonary process by radiograph. ED physician has reviewed this report. - EKG 0809 Cardiac Rate: NL - 66bpm EKG Rhythm: Sinus Rhythm ST Segment: Normal Ectopy: PVCs Summary of EKG Findings: EKG at 0809 shows NSR at 66bpm with motion artifact and PVCs. No STEMI. Re-Evaluation - Re-Evaluation 1st re-eval Re-Evaluation Time: 09:10 Change: Unchanged Comment: I spoke with the pt and her about the calcium levels and involving Dr. Betancourt. They state she could not keep the medications down that help with her calcium levels. Dizzy Course/Dx - Course Course Of Treatment: Pt is a 74 y/o F presenting to the ED with a chief complaint of weakness gradually worsening over the last couple of days. Her reports dehydration secondary to decreased oral intake, as well as N/V and weakness. She recently was taken home from [place] as it was not working out for the pt. Her also reports an increase in fatigue. She denies fevers, diaphoresis, chills, CP, SOB, erythema of eyes, sore throat, cough, abd pain, dysuria, hematuria, myalgia, edema, rash, or dizziness. I reviewed the medical record of her admission from a couple of weeks ago, where she was started on medical marijuana. She has frequent UTIs, and also had hypercalcemia. Her lithium was continued d/t successful mood stabilization. On exam, the pt is cachectic and has dark yellow urine in her espinoza bag. Her physical is otherwise nml. EKG at 0809 shows NSR at 66bpm with motion artifact and PVCs. No STEMI. CXR shows: No acute cardiopulmonary process by radiograph. Pts lab results show RBC of 3.52, Hgb of 10.0, Hct of 30, RDW of 19, MPV of 10.6, INR of 1.49, Calcium of 11.8, AST of 4, ALT of <3, and Alkaline Phosphate of 186. I spoke with Dr. Betancourt at 0906 who will be accepting the pt to [facility] with dx including hypercalcemia, vomiting, and failure to thrive. I spoke with the pt and her about the calcium levels and involving Dr. Betancourt. They state she could not keep the medications down that help with her calcium levels. - Diagnoses Provider Diagnoses: Hypercalcemia, Vomiting, Failure to thrive - Provider Notifications Discussed Care Of Patient With: Marielena Betancourt Time Discussed With Above Provider: 09:06 Instructed by Provider To: Admit As Inpatient Discharge ED - Sign-Out/Discharge Documenting (check all that apply): Patient Departure - Discharge Plan Condition: Stable Disposition: ADMITTED TO [facility] Referrals: Angela Leal MD [Primary Care Provider] - - Attestation Statements Document Initiated by Scribe: Yes Documenting Scribe: Adela Shelley Provider For Whom Scribe is Documenting (Include Credential): Greg Lechuga MD. Scribe Attestation: Adela Byrne, scribed for Greg Lechuga MD. on 01/13/19 at 0910. Status of Scribe Document: Ready
[2019-01-13 08:14] LABS: ABS Eosinophils 0.5 10^3/ul (0-0.6); ABS Monocytes 0.6 10^3/ul (0-0.8); ABS Neutrophils 8.5 10^3/ul (1.5-7.7); Eosinophil % 4.4 %; Hematocrit 30 % (35-47); Lymphocyte % 9.1 %; Mean Corpuscular HGB Conc 33 g/dL (31-36); Mean Corpuscular Hemoglobin 28 pg (27-31); Mean Corpuscular Volume 86 fL (80-97); Mean Platelet Volume 10.6 fL (7.4-10.4); Platelet Count 359 10^3/uL (150-450); Red Blood Count 3.52 10^6 /uL (3.70-4.87); Red Cell Distribution Width 19 % (10-15); White Blood Count 10.5 10^3/uL (3.5-10.8)
[2019-01-13 08:20] LABS: Activated Partial Thrombo Time 34.5 seconds (26.0-38.0); INR 1.49 (0.82-1.09)
[2019-01-13 08:30] LABS: Albumin 3.8 g/dL (3.2-5.2); Anion Gap 6 mmol/L (2-11); CO2 Carbon Dioxide 27 mmol/L (22-32); Chloride 104 mmol/L (101-111); Potassium 4.2 mmol/L (3.5-5.0); Sodium 137 mmol/L (135-145)
[2019-01-13 08:36] LABS: ALT < 3 U/L (7-52); AST 4 U/L (13-39); Albumin/Globulin Ratio 1.7 (1-3); Alkaline Phosphatase 186 U/L (34-104); BUN/Creatinine Ratio 14.3 (8-20); Blood Urea Nitrogen 12 mg/dL (6-24); EGFR African American 80.6 (>60); EGFR Non-African American 66.6 (>60); Globulin 2.2 g/dL (2-4); Glucose 136 mg/dL (70-100)
[2019-01-13 08:44] LABS: Calcium 11.8 mg/dL (8.6-10.3)
[2019-01-13 09:13] LABS: Lithium 0.85 mmol/L (0.6-1.2)
[2019-01-13] MEDS ORDERED: Acetaminophen TAB* 325 MG PO PRN ×2 (10:50→21:33)
[2019-01-13] MEDS: NS 0.9% 1000 ML** 1,000 ML IV SCH (12:37)
[2019-01-13] MEDS: Cinacalcet TAB* 30 MG PO SCH ×2 (12:39→17:46)
[2019-01-13] MEDS: Ondansetron TAB* 4 MG PO PRN ×2 (12:46→19:20)
[2019-01-13] MEDS: Carbidopa/Levodop 25/100 MG TAB(*) PO SCH ×3 (12:49→17:46)
[2019-01-13] MEDS: clonazePAM TAB(*) 0.5 MG PO SCH ×2 (12:50→22:43)
[2019-01-13] MEDS: Lactulose* 15 ML UDC PO SCH ×3 (12:50→22:43)
--- NOTE | 2019-01-13 13:56 | HP ---
CC: Dr. Mark; Dr. Angela Leal; Dr. Ysabel Sharp * HISTORY AND PHYSICAL: DATE OF ADMISSION: 01/13/19 PROVIDER: Char Mlcaughlin NP. PRIMARY CARE PROVIDER: Dr. Angela Leal. ATTENDING PHYSICIAN WHILE IN THE HOSPITAL: Dr. Marielena Betancourt * (dictated by Char Mclaughlin NP). CHIEF COMPLAINT: 1. Weakness. 2. Nausea and vomiting. HISTORY OF PRESENT ILLNESS: Ms. Nelson is a 74-year-old female with past medical history significant for hypercalcemia, Parkinson's, bipolar, depression , anxiety, history of neurogenic bladder, myotonic cognitive impairment, COPD, frequent UTIs, hyperparathyroidism, who presented to the emergency room with complaints of nausea, vomiting, decreased appetite, and weakness that started yesterday. The patient's reports that she is unable to tolerate her medications x24 hours and has had decreased p.o. intake due to feeling nauseated and lack of appetite, so he brought her to the emergency room for further evaluation. The patient was recently admitted from 12/30/18 to for the similar symptoms of weakness, nausea, and vomiting, hypercalcemia. The patient underwent gastric emptying study, which was within normal limits during that evaluation. She was also seen by Gastroenterology, who at that time increased her PPI to twice a day. The patient was also evaluated by Nutrition for failure to thrive and decreased p.o. intake. She was started on medical marijuana as an alternative to increase her appetite. The reports that the patient was doing well for the first 3 to 4 days at home and then started to decline over the past 3 days. He reported yesterday the patient did not tolerate any foods and was not eating. While in the emergency room, the patient had routine lab work drawn. She was found to have hypercalcemia with a level of 11.8. Her lithium level was within normal limits at 0.85. Due to persistent nausea and vomiting, unable to tolerate food, Hospital Medicine was asked to see and evaluate for admission. PAST MEDICAL HISTORY: Significant for: 1. Parkinson's. 2. Bipolar. 3. Depression. 4. Anxiety. 5. Neurogenic bladder with chronic Capellan placement. 6. History of urethral stricture with frequent UTIs, again now with chronic Capellan. 7. Myotonic cognitive impairment. 8. COPD with p.r.n. use of O2 via nasal cannula. 9. Hypercalcemia. 10. Hyperparathyroidism. PAST SURGICAL HISTORY: 1. Right total knee replacement. 2. Oophorectomy. 3. Right hand surgery with open reduction and internal fixation for fracture. HOME MEDICATIONS: Include: 1. Carbidopa/levodopa 25/100 three tabs at 8:30 a.m., 1130 and 1830. 2. Symbicort 2 puffs b.i.d. 3. Dulcolax suppository 10 mg daily p.r.n. constipation. 4. Aspirin 81 mg p.o. daily. 5. Vitamin B12 500 mcg p.o. b.i.d. 6. Sensipar 30 mg p.o. b.i.d. with meals. 7. [place] carbonate 300 mg p.o. b.i.d. 8. Probiotic 1 cap p.o. daily - the patient is currently not taking 9. Docusate 100 mg p.o. b.i.d. 10. Omeprazole 40 mg p.o. q.a.m. 11. Remeron 15 mg p.o. at bedtime. 12. Magnesium oxide 400 mg p.o. daily. 13. MiraLAX 17 g p.o. daily. 14. Zofran 4 mg every 6 hours as needed for nausea. 15. Scopolamine patch 1.5 mg 1 transdermally every 72 hours. 716. Propranolol 10 mg p.o. q.a.m. 17. Tamsulosin 0.4 mg p.o. at bedtime. 18. Sertraline 150 mg p.o. q.a.m. 19. Lamictal 100 mg p.o. b.i.d. 20. Clonazepam 0.5 mg p.o. t.i.d. 21. Spiriva 1 cap inhaled daily. ALLERGIES: Allergy to AMOXICILLIN, CLARITHROMYCIN, AUGMENTIN, MOXIFLOXACIN, and SULFA. FAMILY HISTORY: No reported history of coronary artery disease, diabetes, or cancer within the family. 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 She has currently returned home and is living with her . She has a history of 25-pack year of smoking, she quit in 2012. She denies any alcohol or illicit drug use. The patient does have 24-hour aide care at home. She yesterday moved from [place] back to her primary home residence. She is a full code, healthcare proxy is her or her son. REVIEW OF SYSTEMS: She denies any fever, chills, unintended weight loss. Denies any chest pain or edema. Denies any cough, hemoptysis, or shortness of breath. She denies diarrhea or abdominal pain. She does report nausea and vomiting. She denies any gross hematuria or dysuria, frequency or urgency. Denies any focal weakness, sensory loss, visual complaints. Denies any dysphagia, arthralgias, myalgias, rashes, or lesions. She denies any psychosis or anxiety. PHYSICAL EXAMINATION GENERAL: At this time, Ms. Nelson is a frail female, resting on the stretcher in the emergency room. She appears malnourished and weak. She is alert and oriented. VITAL SIGNS: Blood pressure 158/94, heart rate 65, respirations 16, O2 saturation 97% on 2 L nasal cannula, temperature was 97.7. HEENT: Head is atraumatic, normocephalic. Eyes: EOMs are intact. Sclerae anicteric and not pale. Oral mucosa appeared to be moist. NECK: Supple. LUNGS: Clear to auscultation bilaterally, diminished in the bases. There are no wheezes, rales, or rhonchi. CARDIAC: S1, S2. Regular rate and rhythm. No murmurs, rubs, or gallops. ABDOMEN: Flat, soft, nontender. Bowel sounds are present x4. EXTREMITIES: She is able to move all 4 extremities. There is no clubbing or cyanosis. Pedal pulses are +1 bilaterally. NEUROLOGIC: She is awake, alert, oriented x3. Speech is soft and clear. She has no gross focal deficits. SKIN: Intact. DIAGNOSTIC STUDIES/LAB DATA: WBCs are 10.5, RBCs 3.52, hemoglobin 10.0, hematocrit is 30, platelet count is 359. INR of 1.49, APTT was 34.5. Sodium 137, potassium 4.2, chloride 104, carbon dioxide is 27, anion gap of 6, BUN was 12, creatinine 0.84, glucose 136, lactic acid 1.6, calcium 11.8, magnesium 2.0. Total bilirubin 0.60, ASTs were 4, ALTs were less than 3, alkaline phosphatase was 186. Troponin was 0.00. Total protein was 6.0. Albumin was 3.8. [place] was 0.85. She had a chest x-ray, radiologist's impression: No active cardiopulmonary process is evident. She had an electrocardiogram, which showed sinus rhythm at rate of 66 with PVCs. ASSESSMENT AND PLAN: Ms. Nelson is a 74-year-old female with past medical history significant for hyperparathyroidism, hypercalcemia secondary to lithium use, Parkinson's, bipolar, depression, anxiety, history of frequent urinary tract infections, who presented to the emergency room with complaints of nausea , vomiting, and weakness. She will be admitted for: 1. Weakness: I suspect her weakness is related to deconditioning as well as severe malnutrition as the patient does have poor p.o. intake and failure to thrive. The patient did receive IV fluids in the emergency room. I will continue her on normal saline at 75 cc per hour. I will get a nutritional consult for further recommendations. I suspect her nausea and vomiting also could be related to her hypercalcemia, which could be exacerbating her symptoms of decreased appetite. 2. Hypercalcemia: We will continue her on her Sensipar. I did speak to Dr. Denzel Mark from Endocrinology, who has seen and consulted on the patient. He has recommended to consult Dr. Pastor from Surgery for the possibility of parathyroidectomy as the patient continues to fail medication management of her hypercalcemia. 3. Parkinson's: The patient should continue on her carbidopa/levodopa as previously prescribed. 4. Bipolar: She should continue on her lithium, Lamictal, sertraline, clonazepam as previously prescribed. 5. History of constipation: The patient should continue on Colace b.i.d., MiraLax and lactulose as previously prescribed. 6. Chronic obstructive pulmonary disease: The patient should continue on Spiriva and Symbicort as previously prescribed. She can have O2 2 L via nasal cannula as needed for shortness of breath or low O2 saturations. 7. Severe malnutrition. Will get nutritional consult. encourage foods that she likes. 8. FEN: She can have a regular diet. 9. Code status: She is a full code. 10. DVT prophylaxis: I will place her on SCDs. TIME SPENT: Time spent on this admission was 60 minutes, greater than half that time was spent at the bedside reviewing events leading thus far to her hospitalization, performing physical exam, and reviewing my plan of care. I have discussed this with my attending Dr. Marielena Betancourt and she is in agreement with my plan. CHAR MCLAUGHLIN NP [id number]/[facility] #: [id number] NEMO
--- NOTE | 2019-01-13 15:23 | ECHO ---
*[facility]* [place] [address] Fax #: [phone] Transthoracic Echocardiogram Patient: Cyndi Nelson : 1945 Study Date: 01/13/2019 Age: 74 Gender: F HR: 68 bpm Height: 65 in /165.1 cm BSA: 1.61 m^2 Weight: 124.7 lb /56.7 kg BMI: 20.8 kg/m^2 *Immigration Judge: * Ysabel Finley [facility] *Referring Physician: * Char Mclaughlin *Reading Physician: * Migel Chew MD Indications: Weakness. History: Former smoker, nausea,vomiting weakness,dementia. Conclusions Summary: - Left ventricle: Systolic function is normal. The estimated ejection fraction is 55-60%. Wall motion is normal; there are no regional wall motion abnormalities. - Study data: No prior study is available for comparison. - Mitral valve: There is mild regurgitation. - Aortic valve: There is no evidence of stenosis. There is no significant regurgitation. - Tricuspid valve: There is mild regurgitation. - Pericardium, extracardiac: There is no pericardial effusion. - Pulmonary arteries: Systolic pressure is mildly to moderately increased, estimated to be 45 mm Hg. - Right ventricle: Systolic function is normal. Study data: Transthoracic echocardiogram. Procedure: Transthoracic echocardiography was performed. The study was technically limited due to restricted patient mobility. Complete 2D, spectral Doppler, and color flow Doppler. Patient status: Inpatient. Patient room number: 414-2. No prior study is available for comparison. Rhythm: Normal sinus rhythm with PVC's. Findings Left ventricle: The cavity size is normal. Wall thickness is mildly increased. Systolic function is normal. The estimated ejection fraction is 55-60%. Wall motion is normal; there are no regional wall motion abnormalities. Doppler parameters are consistent with abnormal left ventricular relaxation (grade 1 diastolic dysfunction). Right ventricle: Well visualized. The cavity size is normal. Wall thickness is normal. Systolic function is normal. Ventricular septum: Well visualized. The ventricular septum is normal. Left atrium: Well visualized. The atrium is normal in size. Right atrium: Well visualized. The atrium is normal in size. Atrial septum: Well visualized. Mitral valve: Well visualized. The leaflets are normal thickness. No echocardiographic evidence for prolapse. There is no evidence of stenosis. There is mild regurgitation. Aortic valve: Not well visualized. The valve is trileaflet. The leaflets are normal thickness. There is no evidence of stenosis. There is no significant regurgitation. Tricuspid valve: Well visualized. The leaflets are normal thickness. There is no evidence of stenosis. There is mild regurgitation. Pulmonic valve: Not well visualized. There is no evidence of stenosis. There is no significant regurgitation. Aorta: The aorta is well visualized and normal size. The aortic root appears normal. The aortic arch appears normal. Pericardium: There is no pericardial effusion. No evidence of pleural fluid accumulation. Pulmonary arteries: Not well visualized. Systolic pressure is mildly to moderately increased, estimated to be 45 mm Hg. Systemic veins: Not well visualized. Pulmonary veins: Visualization of the pulmonary venous anatomy is incomplete, but a significant abnormality is unlikely. Measurements Left ventricle Value Ref Right atrium continued Value Ref GLENN, LAX 3.9 cm 3.8 - 5.2 SI dim, ES, A4C 4.0 cm 3.4 - ESD, LAX 2.9 cm 2.2 - 3.5 5.3 FS, LAX (L) 25 % 27 - 45 SI dim/bsa, ES, 2.5 cm/m^2 1.9 - PW, ED, LAX (H) 1.3 cm 0.6 - 0.9 A4C 3.1 FS (L) 25 % 27 - 45 Estimated RAP 8 mm Hg -------- Mid-wall FS 9 % --------- PW, ED (H) 1.3 cm 0.6 - 0.9 Aortic valve Value Ref PW/ID, ED 0.32 --------- Peak v, S 1.11 m/sec -------- E', lat amber, TDI (L) 5.4 cm/sec >=10.0 Peak grad, S 5.0 mm Hg - ------- E/e', lat amber, TDI 8 --------- Mitral valve Value Ref LVOT Value Ref Peak E 0.45 m/sec -------- Peak gaye, S 0.58 m/sec --------- Peak A 0.74 m/sec -------- Peak grad, S 1 mm Hg --------- Decel time 225 ms -------- Peak E/A ratio 0.62 -------- Ventricular septum Value Ref MR peak v 3.64 m/sec -------- IVS, ED (H) 1.2 cm 0.6 - 0.9 Pulmonic valve Value Ref Right ventricle Value Ref Peak v, S 0.78 m/sec -------- GLENN, LAX 3.3 cm --------- Peak grad, S 2.4 mm Hg -------- GLENN major ax, A4C (L) 3.4 cm 5.9 - 8.3 Tricuspid valve Value Ref Left atrium Value Ref TR peak v (H) 3.48 m/sec <=2.8 LA ID 2.9 cm --------- Peak RV-RA grad, S 49 mm Hg -------- SI dim ES, LAX 2.9 cm --------- ML dim, A4C 3.0 cm --------- Aortic root Value Ref SI dim, A4C 3.0 cm --------- Root diam 2.1 cm <3.9 Right atrium Value Ref Aortic arch Value Ref SI dim, ES 4.0 cm 3.4 - 5.3 Arch diam 3.3 cm -------- ML dim, ES, A4C 3.6 cm 2.6 - 4.4 Decending aorta Value Ref John peak gaye 0.57 m/sec -------- Legend: (L) and (H) values outside specified reference range. Prepared and electronically signed by Migel Chew MD 01/13/2019 15:23
[2019-01-13] MEDS ORDERED: Pantoprazole IV* 40 MG IV ONE (16:07)
[2019-01-13] MEDS: Mometasone/Formoter 200/5 MDI INH SCH (19:27)
[2019-01-13 19:32] LABS: Urine Appearance Cloudy; Urine Bacteria 1+ (Absent); Urine Bilirubin Negative (Negative); Urine Blood 1+ (Negative); Urine Color Yellow; Urine Glucose Negative (Negative); Urine Ketones Negative (Negative); Urine Nitrite Negative (Negative); Urine Protein Negative (Negative); Urine Red Blood Cell 3+(>10/hpf) (Absent); Urine Specific Gravity 1.008 (1.010-1.030); Urine Urobilinogen Negative (Negative); Urine White Blood Cell 3+(>20/hpf) (Absent)
[2019-01-13] MEDS: Scopolamine 1.5 mg* PATCH TRANSDERM SCH (22:21)
[2019-01-13] MEDS: lamoTRIgine TAB(*) 100 MG PO SCH (22:43)
[2019-01-13] MEDS: Cyanocobalamin TAB* 500 MCG PO SCH (22:43)
[2019-01-13] MEDS: Docusate CAP* 100 MG PO SCH (22:43)
[2019-01-13] MEDS: Mirtazapine TAB* 15 MG PO SCH (22:43)
[2019-01-13] MEDS: CMCS: Lithium Carbonate ER (NF) 300 MG TAB.ER PO SCH (22:43)
[2019-01-13] MEDS: Polyethylene Glycol 3350* 17 GM PACKET PO SCH (22:44)
[2019-01-14] MEDS ORDERED: Morphine INJ* 2 MG/ML 1 ML SYRINGE (TWO MG - NEW SYRINGE VERSION) ONE (03:20)
[2019-01-14] MEDS ORDERED: Morphine INJ* 2 MG/ML 1 ML SYRINGE (TWO MG - NEW SYRINGE VERSION) IV ONE ×2 (04:00→10:02)
[2019-01-14 06:58] LABS: Hematocrit 28 % (35-47); Hemoglobin 9.2 g/dL (12.0-16.0); Mean Corpuscular HGB Conc 33 g/dL (31-36); Mean Corpuscular Hemoglobin 29 pg (27-31); Mean Corpuscular Volume 87 fL (80-97); Mean Platelet Volume 10.4 fL (7.4-10.4); Platelet Count 290 10^3/uL (150-450); Red Blood Count 3.19 10^6 /uL (3.70-4.87); Red Cell Distribution Width 19 % (10-15); White Blood Count 8.6 10^3/uL (3.5-10.8)
[2019-01-14 07:14] LABS: Calcium 10.3 mg/dL (8.6-10.3); Potassium 4.1 mmol/L (3.5-5.0)
[2019-01-14 07:19] LABS: BUN/Creatinine Ratio 18.1 (8-20); EGFR African American 96.3 (>60); EGFR Non-African American 79.6 (>60)
[2019-01-14] MEDS: Mometasone/Formoter 200/5 MDI INH SCH ×2 (07:52→19:52)
[2019-01-14] MEDS: SPIRIVA Respimat* (tiotropium) 2.5 mcg/inh Inhaler INH SCH (07:52)
[2019-01-14 08:42] LABS: Acanthocytes 1+
[2019-01-14 08:45] LABS: ABS Eosinophils 0.1 10^3/ul (0-0.6); ABS Lymphocytes 0.9 10^3/ul (1.0-4.8); ABS Monocytes 0.5 10^3/ul (0-0.8); ABS Neutrophils 7.1 10^3/ul (1.5-7.7); Eosinophil % 0.9 %
--- NOTE | 2019-01-14 10:09 | PN ---
Subjective Date of Service: 01/14/19 Interval History: Resting in bed, no acute distress , c/o supra pubic pain. reports nausea and vomiting. reports no appetite. Did receive 1 dose of morphine overnight with relief. Denies fever or chills. Denies chest pain or shortness of breath. Family History: Unchanged from Admission Social History: Unchanged from Admission Past Medical History: Unchanged from Admission Objective Active Medications: Acetaminophen (Tylenol Tab*) 650 mg PO Q8H PRN PRN Reason: PAIN - MODERATE Carbidopa/Levodopa (Sinemet 25/100 Tab(*)) 3 tab PO 0830,1300,1830 [facility] Last Admin: 01/13/19 17:46 Dose: 3 tab Cinacalcet (Sensipar Tab*) 30 mg PO BID WITH MEALS [facility] Last Admin: 01/13/19 17:46 Dose: 30 mg Clonazepam (Klonopin Tab(*)) 0.5 mg PO TID [facility] Last Admin: 01/13/19 22:43 Dose: Not Given Cyanocobalamin (Vitamin B12 Tab*) 500 mcg PO BID [facility] Last Admin: 01/13/19 22:43 Dose: Not Given Docusate Sodium (Colace Cap*) 100 mg PO BID [facility] Last Admin: 01/13/19 22:43 Dose: Not Given Sodium Chloride (Ns 0.9% 1000 Ml) 1,000 mls @ 75 mls/hr IV PER RATE [facility] Last Admin: 01/13/19 12:37 Dose: 75 mls/hr Lactulose (Lactulose*) 15 ml PO TID [facility] Last Admin: 01/13/19 22:43 Dose: Not Given Lamotrigine (Lamictal Tab(*)) 100 mg PO BID [facility] Last Admin: 01/13/19 22:43 Dose: Not Given Buckley Carbonate (Buckley Carbonate Er (Nf)) 300 mg PO BID [facility]; Protocol Last Admin: 01/13/19 22:43 Dose: Not Given Mirtazapine (Remeron Tab*) 15 mg PO BEDTIME [facility] Last Admin: 01/13/19 22:43 Dose: Not Given Mometasone Furoate/Formoterol Fumar (Dulera 200/5 Mdi*) 2 puff INH BID [facility]; Protocol Last Admin: 01/14/19 07:52 Dose: 2 puff Morphine Sulfate (Morphine Inj (Syringe))*) 2 mg IV ONCE ONE Stop: 01/14/19 10:03 Ondansetron HCl (Zofran Inj*) 4 mg IV Q6H PRN PRN Reason: NAUSEA Pantoprazole Sodium (Protonix Tab*) 40 mg PO BID [facility] Pharmacy Profile Note (Scopolamine Patch Remove*) 1 note PATCH OFF ONCE ONE Stop: 01/16/19 22:01 Polyethylene Glycol/Electrolytes (Miralax*) 17 gm PO BID [facility] Last Admin: 01/13/19 22:44 Dose: Not Given Propranolol HCl (Inderal Tab*) 10 mg PO QAM [facility] Scopolamine (Transderm-Scop 1.5 Mg Patch*) 1 patch TRANSDERM Q72H [facility] Last Admin: 01/13/19 22:21 Dose: 1 patch Sertraline HCl (Zoloft*) 150 mg PO QAM [facility] Tiotropium [place] (Spiriva Respimat 2.5 Mcg) 2 puff INH DAILY [facility] Last Admin: 01/14/19 07:52 Dose: 2 puff Vital Signs - 8 hr 01/14/19 01/14/19 01/14/19 03:00 03:25 06:10 Temperature 97.6 F Pulse Rate 76 Respiratory 19 18 18 Rate Blood Pressure 136/90 (mmHg) O2 Sat by Pulse 98 Oximetry 01/14/19 01/14/19 01/14/19 07:00 07:55 08:00 Temperature 97.7 F Pulse Rate 81 79 Respiratory 16 16 16 Rate Blood Pressure 147/80 (mmHg) O2 Sat by Pulse 98 93 93 Oximetry Oxygen Devices in Use Now: None Eyes: No Scleral Icterus, PERRLA Ears/Nose/Mouth/Throat: NL Teeth, Lips, Gums, Mucous Membranes Moist Neck: NL Appearance and Movements; NL JVP, Trachea Midline Respiratory: Symmetrical Chest Expansion and Respiratory Effort, Clear to Auscultation Cardiovascular: NL Sounds; No Murmurs; No JVD, No Edema Abdominal: - - suprapubic tenderness, abd soft BS active x 4 Extremities: No Edema, No Clubbing, Cyanosis Skin: No Rash or Ulcers Neurological: Alert and Oriented x 3 Nutrition: Taking PO's Result Diagrams: 01/15/19 12:08 01/15/19 12:08 Microbiology and Other Data: Microbiology 01/13/19 08:17 Aerobic Blood Culture - Preliminary Blood Venous No Growth Day 1 Anaerobic Blood Culture - Preliminary No Growth Day 1 01/13/19 08:04 Aerobic Blood Culture - Preliminary Blood Venous No Growth Day 1 Anaerobic Blood Culture - Preliminary No Growth Day 1 Assess/Plan/Problems-Billing Assessment: - Patient Problems (1) Nausea & vomiting Current Visit: No Status: Acute Code(s): R11.2 - NAUSEA WITH VOMITING, UNSPECIFIED SNOMED Code(s): 29654770 Comment: Suspect this may be triggered by Hypercalcemia - did contact Dr. Mark - consult is pending - Continue scopolamine patch, zofran (2) Abdominal pain Current Visit: Yes Status: Acute Code(s): R10.9 - UNSPECIFIED ABDOMINAL PAIN SNOMED Code(s): 56935685 Comment: c/o of abd pain overnight - was given morphine 2 mg - with relief _ patient with suprapubic abd pain on exam - will get abd x ray - showed ileus no obstruction- will re evaluate abd pain in the AM if persists will get CT of the abd and pelvis to r/o obstruction - suspect this could be related to UTI but constipation is within the differential - urine culture is pending (3) Hyperparathyroidism due to lithium therapy Current Visit: No Status: Acute Code(s): E21.1 - SECONDARY HYPERPARATHYROIDISM, NOT ELSEWHERE CLASSIFIED SNOMED Code(s): 075803192 Comment: - Hypercalcemia chronic and likely worsened by immobility, inabilty to take medications consistantly. -Dr. Mark consulted- recommended consult to Dr. Pastor in regards to parathyroidectomy- Dr. Pastor contacted - will see the patient tomorrow -Discontinuation of lithium deemed not a viable option due to successful mood stabilization. - Cont sensipar at this point - (4) Neurogenic bladder Current Visit: No Status: Acute Code(s): N31.9 - NEUROMUSCULAR DYSFUNCTION OF BLADDER, UNSPECIFIED SNOMED Code(s): 909141599 Comment: - chronic espinoza. - failed void trial on last admission - Continue Flomax. 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 - Continue Buckley, Lamotrigine, clonazepam, mirtazapine, sertraline . (7) COPD (chronic obstructive pulmonary disease) Current Visit: No Status: Chronic Priority: High Code(s): J44.9 - CHRONIC OBSTRUCTIVE PULMONARY DISEASE, UNSPECIFIED SNOMED Code(s): 16623967 Comment: - asymptomatic - continue Spiriva, Symbicort (8) DVT prophylaxis Current Visit: No Status: Acute Priority: Medium Code(s): YVD8010 - SNOMED Code(s): 313730144 Comment: - SCD's (9) Full code status Current Visit: No Status: Acute Code(s): Z78.9 - OTHER SPECIFIED HEALTH STATUS SNOMED Code(s): 316236032 Comment: Status and Disposition: inpatient
[2019-01-14] MEDS: Ondansetron INJ* 2 MG/ML VIAL IV PRN ×2 (11:00→17:59)
[2019-01-14] MEDS: clonazePAM TAB(*) 0.5 MG PO SCH ×5 (11:05→21:20)
[2019-01-14] MEDS: Cinacalcet TAB* 30 MG PO SCH ×2 (11:05→18:04)
[2019-01-14] MEDS: Carbidopa/Levodop 25/100 MG TAB(*) PO SCH ×3 (11:10→18:01)
[2019-01-14] MEDS: Docusate CAP* 100 MG PO SCH ×2 (11:11→19:48)
[2019-01-14] MEDS: Cyanocobalamin TAB* 500 MCG PO SCH ×2 (11:11→19:48)
[2019-01-14] MEDS: CMCS: Lithium Carbonate ER (NF) 300 MG TAB.ER PO SCH ×2 (11:12→21:22)
[2019-01-14] MEDS: Polyethylene Glycol 3350* 17 GM PACKET PO SCH ×2 (11:12→19:52)
[2019-01-14] MEDS: Pantoprazole TAB * 40 MG TAB PO SCH ×2 (11:12→19:51)
[2019-01-14] MEDS: Lactulose* 15 ML UDC PO SCH ×3 (11:12→19:48)
[2019-01-14] MEDS: lamoTRIgine TAB(*) 100 MG PO SCH ×2 (11:12→19:50)
[2019-01-14] MEDS: Propranolol TAB* 10 MG PO SCH (11:13)
[2019-01-14] MEDS: Sertraline* 100 MG TAB PO SCH (11:13)
[2019-01-14] MEDS ORDERED: Iohexol 300* (CONTRAST) 10 ML SDV IV ONE (15:30)
[2019-01-14] MEDS: NS 0.9% 1000 ML** 1,000 ML IV SCH (15:41)
--- NOTE | 2019-01-14 17:47 | CONSULT ---
Consult Consult: [facility] Inpatient Consult Note Date of Consult: 01/14/19 Reason for Consult: hypercalcemia Reason for Admission: abdominal pain, failure to thrive ASSESSMENT: 74 yo F with lithium-induced hyperparathyroidism, now presenting with recurrent, symptomatic hypercalcemia after stopping Sensipar. Despite gnosticist of eucalcemia while on Sensipar as an inpatient, she has failed outpatient medical therapy for hyperparathyroidism on three occasions. [facility]- induced hyperparathyroidism is a chronic disease that does not always improved with cessation of lithium, which is not an option for this patient anyway. At this time, I recommend a durable therapy for hypercalcemia, either (1) IV bisphosphate or (2) sub-total parathyroidectomy. The case was discussed with endocrine surgery, Dr. Wendy Pastor, who agreed to evaluate the patient's surgical candidacy after obtaining parathyroid localizing studies (MIBI +/- 4D CT). PLAN: - continue Sensipar 30mg BID - continue IV hydration while inpatient - check calcium daily -- goal <11.0 - obtain parathyroid localizing studies, per Dr. Pastor - if patient is eligible for parathyroid surgery in 1-2 weeks, continue Sensipar - if patient is not a surgical candidate, give IV zoledronic acid 5mg x1 prior to discharge - plan to check calcium as outpatient weekly x1 month after discharge SUBJECTIVE: History of Present Illness: 74 yo F with lithium-induced hyperparathyroidism and symptomatic hypercalcemia, in setting of Parkinson's Disease and failure to thrive, now admitted for acute abdominal pain. She has had several admissions for similar symptoms in the past 3 months and has not been able to return home in this time. She has been a resident of [facility] most recently and attempted to return home last week, but became ill. Her spouse describes several days of worsening abdominal pain with inability to walk, eat, drink or take medications. She has had hypercalcemia dating back many years. Peak calcium was in 11.8 this admission with normal albumin. PTH is chronically elevated or not suppressed. Vitamin D and renal function are normal. She has been on lithium for many years and a recent 24h urine study showed low-normal calcium, which is typical of lithium-induced PTH-mediated hypercalcemia. Past Medical History: COPD Hyperparathyroidism, secondary to lithium Bipolar Mood Disorder Parkinson's Disease vs Drug-Induced Parkinsonismn Surgical History Hand Surgery, right knee replacement, Oophorectomy Social History: Marital: . Lives with . Disabled. Former smoker - quit 2012, smoked approx 45 yrs, 1/2 ppd. Consumes on average 1 cup of regular coffee per day. Family History: PD (mother), asthma (father), MS (sister) Review of Systems: As above. OBJECTIVE: Temp Pulse Resp BP Pulse Ox 96.8 F 79 16 163/88 100 01/14/19 15:00 01/14/19 15:00 01/14/19 15:00 01/14/19 15:00 01/14/19 15:00 General: alert, pleasant, oriented, no distress ENT: neck supple, no thyromegaly, no bruit is heard Chest: CTAB, no wheezing or crackles CV: RRR, no murmur Abdomen: soft, but diffusely tender Extremities: no edema, distal pulses intact Skin: warm, dry, no rash Neuro: tremor R >L Psych: restricted affect Labs: WBC 8.6 10^3/uL (3.5-10.8) 01/14/19 06:48 RBC 3.19 10^6 /uL (3.70-4.87) L 01/14/19 06:48 Hgb 9.2 g/dL (12.0-16.0) L 01/14/19 06:48 Hct 28 % (35-47) L 01/14/19 06:48 MCV 87 fL (80-97) 01/14/19 06:48 MCH 29 pg (27-31) 01/14/19 06:48 MCHC 33 g/dL (31-36) 01/14/19 06:48 RDW 19 % (10-15) H 01/14/19 06:48 Plt Count 290 10^3/uL (150-450) 01/14/19 06:48 MPV 10.4 fL (7.4-10.4) 01/14/19 06:48 Neut % (Auto) 82.5 % 01/14/19 06:48 Lymph % (Auto) 10.0 % 01/14/19 06:48 [place] % (Auto) 6.2 % 01/14/19 06:48 Eos % (Auto) 0.9 % 01/14/19 06:48 Baso % (Auto) 0.4 % 01/14/19 06:48 Absolute Neuts (auto) 7.1 10^3/ul (1.5-7.7) 01/14/19 06:48 Absolute Lymphs (auto) 0.9 10^3/ul (1.0-4.8) L 01/14/19 06:48 Absolute Monos (auto) 0.5 10^3/ul (0-0.8) 01/14/19 06:48 Absolute Eos (auto) 0.1 10^3/ul (0-0.6) 01/14/19 06:48 Absolute Basos (auto) 0.0 10^3/ul (0-0.2) 01/14/19 06:48 Absolute Nucleated RBC 0.0 10^3/ul 01/14/19 06:48 Nucleated RBC % 0.0 01/14/19 06:48 Hypochromasia 1+ 01/14/19 06:48 Anisocytosis 2+ 01/14/19 06:48 Acanthocytes (Spur) 1+ 01/14/19 06:48 INR (Anticoag Therapy) 1.49 (0.82-1.09) H 01/13/19 08:04 APTT 34.5 seconds (26.0-38.0) 01/13/19 08:04 Sodium 140 mmol/L (135-145) 01/14/19 06:47 Potassium 4.1 mmol/L (3.5-5.0) 01/14/19 06:47 Chloride 113 mmol/L (101-111) H 01/14/19 06:47 Carbon Dioxide 22 mmol/L (22-32) 01/14/19 06:47 Anion Gap 5 mmol/L (2-11) 01/14/19 06:47 BUN 13 mg/dL (6-24) 01/14/19 06:47 Creatinine 0.72 mg/dL (0.51-0.95) 01/14/19 06:47 Est GFR ( Amer) 96.3 (>60) 01/14/19 06:47 Est GFR (Non-Af Amer) 79.6 (>60) 01/14/19 06:47 BUN/Creatinine Ratio 18.1 (8-20) 01/14/19 06:47 Glucose 105 mg/dL (70-100) H 01/14/19 06:47 Lactic Acid 1.2 mmol/L (0.5-2.0) 01/13/19 12:33 Calcium 10.3 mg/dL (8.6-10.3) 01/14/19 06:47 Magnesium 2.0 mg/dL (1.9-2.7) 01/13/19 08:04 Total Bilirubin 0.60 mg/dL (0.2-1.0) 01/13/19 08:04 AST 4 U/L (13-39) L 01/13/19 08:04 ALT < 3 U/L (7-52) L 01/13/19 08:04 Alkaline Phosphatase 186 U/L (34-104) H 01/13/19 08:04 Troponin I 0.00 ng/mL (<0.04) 01/13/19 08:04 Total Protein 6.0 g/dL (6.4-8.9) L 01/13/19 08:04 Albumin 3.8 g/dL (3.2-5.2) 01/13/19 08:04 Globulin 2.2 g/dL (2-4) 01/13/19 08:04 Albumin/Globulin Ratio 1.7 (1-3) 01/13/19 08:04 Urine Color Yellow 01/13/19 19:15 Urine Appearance Cloudy 01/13/19 19:15 Urine pH 7.0 (5-9) 01/13/19 19:15 Ur Specific [place] 1.008 (1.010-1.030) L 01/13/19 19:15 Urine Protein Negative (Negative) 01/13/19 19:15 Urine Ketones Negative (Negative) 01/13/19 19:15 Urine Blood 1+ (Negative) A 01/13/19 19:15 Urine Nitrate Negative (Negative) 01/13/19 19:15 Urine Bilirubin Negative (Negative) 01/13/19 19:15 Urine Urobilinogen Negative (Negative) 01/13/19 19:15 Ur Leukocyte Esterase 3+ (Negative) A 01/13/19 19:15 Urine WBC (Auto) 3+(>20/hpf) (Absent) A 01/13/19 19:15 Urine RBC (Auto) 3+(>10/hpf) (Absent) A 01/13/19 19:15 Urine Bacteria 1+ (Absent) A 01/13/19 19:15 Urine Glucose Negative (Negative) 01/13/19 19:15 [place] 0.85 mmol/L (0.6-1.2) 01/13/19 08:04
[2019-01-14] MEDS: Mirtazapine TAB* 15 MG PO SCH (19:51)
[2019-01-15] MEDS: CMCS: Lithium Carbonate ER (NF) 300 MG TAB.ER PO SCH ×3 (07:14→21:19)
[2019-01-15] MEDS: SPIRIVA Respimat* (tiotropium) 2.5 mcg/inh Inhaler INH SCH (07:28)
[2019-01-15] MEDS: Mometasone/Formoter 200/5 MDI INH SCH ×2 (07:28→19:53)
[2019-01-15] MEDS ORDERED: Morphine INJ* 2 MG/ML 1 ML SYRINGE (TWO MG - NEW SYRINGE VERSION) IV ONE (07:32)
[2019-01-15] MEDS: Carbidopa/Levodop 25/100 MG TAB(*) PO SCH ×4 (07:50→21:29)
[2019-01-15] MEDS: Cinacalcet TAB* 30 MG PO SCH ×2 (07:58→17:44)
[2019-01-15] MEDS: Ondansetron INJ* 2 MG/ML VIAL IV PRN ×3 (08:12→21:24)
[2019-01-15] MEDS: clonazePAM TAB(*) 0.5 MG PO SCH ×4 (08:37→21:18)
[2019-01-15] MEDS: Polyethylene Glycol 3350* 17 GM PACKET PO SCH ×2 (08:37→21:19)
[2019-01-15] MEDS: Pantoprazole TAB * 40 MG TAB PO SCH (08:37)
[2019-01-15] MEDS: Cyanocobalamin TAB* 500 MCG PO SCH ×2 (08:37→21:03)
[2019-01-15] MEDS: Docusate CAP* 100 MG PO SCH ×2 (08:37→21:04)
[2019-01-15] MEDS: Lactulose* 15 ML UDC PO SCH ×3 (08:37→21:04)
[2019-01-15] MEDS ORDERED: Influenza VAC *QUAD* 2019-20* 0.5 ML SYRINGE IM ONE (09:00)
[2019-01-15] MEDS ORDERED: NS 0.9% 1000 ML** 1,000 ML IV SCH (09:06)
[2019-01-15] MEDS: Propranolol TAB* 10 MG PO SCH (09:58)
[2019-01-15] MEDS: lamoTRIgine TAB(*) 100 MG PO SCH ×2 (09:58→21:18)
[2019-01-15] MEDS: Sertraline* 100 MG TAB PO SCH (09:58)
[2019-01-15] MEDS: Pantoprazole IV* 40 MG IV SCH (10:39)
[2019-01-15] MEDS: cefTRIAXone(*) 1 GM in NS 0.9% 50 ML* 50 ML IVPB SCH (12:09)
[2019-01-15 12:15] LABS: Hematocrit 27 % (35-47); Hemoglobin 8.8 g/dL (12.0-16.0); Mean Corpuscular HGB Conc 33 g/dL (31-36); Mean Corpuscular Hemoglobin 29 pg (27-31); Mean Corpuscular Volume 88 fL (80-97); Mean Platelet Volume 10.1 fL (7.4-10.4); Platelet Count 300 10^3/uL (150-450); Red Blood Count 3.06 10^6 /uL (3.70-4.87); Red Cell Distribution Width 20 % (10-15); White Blood Count 8.7 10^3/uL (3.5-10.8)
[2019-01-15 12:38] LABS: BUN/Creatinine Ratio 20.3 (8-20); Calcium 10.3 mg/dL (8.6-10.3); EGFR African American 101.2 (>60); EGFR Non-African American 83.6 (>60); Potassium 3.9 mmol/L (3.5-5.0)
--- NOTE | 2019-01-15 13:47 | PN ---
Subjective Date of Service: 01/15/19 Interval History: Continues to C/o abdominal pain, suprapubic, Left CVAT tenderness, Continues to c/o nausea, no appetite, not eating. Discussed with patient and today the need for nutrition and are agreeable to IV TPN at this time. Patient is agreeable to PICC line as well. Procedure was explained to patient and her . Denies chest pain or shortness of breath. denies fever or chills Family History: Unchanged from Admission Social History: Unchanged from Admission Past Medical History: Unchanged from Admission Objective Active Medications: Acetaminophen (Tylenol Tab*) 650 mg PO Q8H PRN PRN Reason: PAIN - MODERATE Carbidopa/Levodopa (Sinemet 25/100 Tab(*)) 3 tab PO 0830,1300,1830 [facility] Last Admin: 01/15/19 12:32 Dose: Not Given Cinacalcet (Sensipar Tab*) 30 mg PO BID WITH MEALS [facility] Last Admin: 01/15/19 07:58 Dose: 30 mg Clonazepam (Klonopin Tab(*)) 0.5 mg PO TID [facility] Last Admin: 01/15/19 12:32 Dose: Not Given Cyanocobalamin (Vitamin B12 Tab*) 500 mcg PO BID [facility] Last Admin: 01/15/19 08:37 Dose: Not Given Docusate Sodium (Colace Cap*) 100 mg PO BID [facility] Last Admin: 01/15/19 08:37 Dose: Not Given Sodium Chloride (Ns 0.9% 1000 Ml) 1,000 mls @ 50 mls/hr IV PER RATE [facility] Last Admin: 01/15/19 12:10 Dose: 50 mls/hr Ceftriaxone Sodium 1 gm/ (Sodium Chloride) 50 mls @ 100 mls/hr IVPB Q24H [facility] Last Admin: 01/15/19 12:09 Dose: 100 mls/hr Dextrose 500 ml/ Amino Acids 850 ml/ Sterile Water 150 ml/Fat Emulsion Intravenous 250 ml/ Sodium Chloride 100 meq/Potassium Chloride 50 meq/Potassium Phosphate 15 mmole/Magnesium Sulfate 10 meq/Multivitamins 10 ml/ Trace Metals 1 ml/ Nutrition ( Parenteral) 1,818.463 mls @ 75.769 mls/hr CENTR 1700 [facility]; Protocol Dextrose 500 ml/ Amino Acids 850 ml/ Sterile Water 150 ml/Fat Emulsion Intravenous 250 ml/ Sodium Chloride 100 meq/Potassium Chloride 50 meq/Potassium Phosphate 15 mmole/Calcium Gluconate 15 meq/Magnesium Sulfate 10 meq/ Multivitamins 10 ml/ Trace Metals 1 ml/ Phytonadione /Insulin Human Regular / Sodium Acetate / Famotidine /Nutrition (Parenteral) 1,850.721 mls @ 77.113 mls/ hr CENTR 1700 [facility] Lactulose (Lactulose*) 15 ml PO TID [facility] Last Admin: 01/15/19 12:32 Dose: Not Given Lamotrigine (Lamictal Tab(*)) 100 mg PO BID [facility] Last Admin: 01/15/19 09:58 Dose: Not Given [place] Carbonate ([place] Carbonate Er (Nf)) 300 mg PO BID [facility]; Protocol Last Admin: 01/15/19 07:51 Dose: 300 mg Mirtazapine (Remeron Tab*) 15 mg PO BEDTIME [facility] Last Admin: 01/14/19 19:51 Dose: Not Given Mometasone Furoate/Formoterol Fumar (Dulera 200/5 Mdi*) 2 puff INH BID [facility]; Protocol Last Admin: 01/15/19 07:28 Dose: 2 puff Ondansetron HCl (Zofran Inj*) 4 mg IV Q6H PRN PRN Reason: NAUSEA Last Admin: 01/15/19 08:12 Dose: 4 mg Pantoprazole Sodium (Protonix Iv*) 40 mg IV DAILY [facility] Last Admin: 01/15/19 10:39 Dose: 40 mg Pharmacy Profile Note (Scopolamine Patch Remove*) 1 note PATCH OFF ONCE ONE Stop: 01/16/19 22:01 Polyethylene Glycol/Electrolytes (Miralax*) 17 gm PO BID [facility] Last Admin: 01/15/19 08:37 Dose: Not Given Propranolol HCl (Inderal Tab*) 10 mg PO QAM [facility] Last Admin: 01/15/19 09:58 Dose: Not Given Scopolamine (Transderm-Scop 1.5 Mg Patch*) 1 patch TRANSDERM Q72H [facility] Last Admin: 01/13/19 22:21 Dose: 1 patch Sertraline HCl (Zoloft*) 150 mg PO QAM [facility] Last Admin: 01/15/19 09:58 Dose: Not Given Tiotropium Mcgill (Spiriva Respimat 2.5 Mcg) 2 puff INH DAILY [facility] Last Admin: 01/15/19 07:28 Dose: 2 puff Vital Signs - 8 hr 01/15/19 01/15/19 01/15/19 07:47 07:52 08:00 Temperature 97.9 F Pulse Rate 75 Respiratory 16 16 16 Rate Blood Pressure 152/82 (mmHg) O2 Sat by Pulse 99 99 Oximetry 01/15/19 01/15/19 01/15/19 09:04 12:00 12:32 Temperature 98.2 F Pulse Rate 78 Respiratory 14 18 16 Rate Blood Pressure 145/83 (mmHg) O2 Sat by Pulse 97 Oximetry Oxygen Devices in Use Now: None Appearance: frail, weak, pale - no acute distress Eyes: No Scleral Icterus Ears/Nose/Mouth/Throat: Clear Oropharnyx, Mucous Membranes Moist Neck: NL Appearance and Movements; NL JVP, Trachea Midline Respiratory: Symmetrical Chest Expansion and Respiratory Effort, Clear to Auscultation Cardiovascular: NL Sounds; No Murmurs; No JVD, No Edema Abdominal: NL Sounds; No Tenderness; No Distention Neurological: Alert and Oriented x 3 Nutrition: Taking PO's, - - minimal PO intake - Nutrition: Malnutrition Diagnosis/Plan Malnutrition Assessment by Registered Dietitian: Malnutrition Assessment Clinical Characteristics Chronic,Severe Malnutrition Assessment: Muscle Wasting - Temporal muscle (moderate) Criteria Inadequate Oral Intake - Pt reports having poor appetite, consistent w/ visits x1 mo. - Anticipate meeting <75% nutrient needs >1 mo. ( severe) Unintentional Weight Loss - Current wt 112lb, prev wt on record 126lb (11/2018) - 11.11% loss x1 mo (severe) Malnutrition Assessment: Nutritional Supplementals/Nourishments - Pt not Interventions amenable to scheduled nourishments/supplements at this time; will continue to monitor intakes and offer again as indicated. GI Related - Recommend continuing antiemetics PRN and standing bowel meds; will monitor GI s/ sx for impact on intake. Malnutrition Assessment: Goals 1) Pt will tolerate least restrictive dietary textures w/o difficulty chewing/swallowing or exac of GI s/sx 2) Adequate po intake to replete lean body mass , support wt gain as desired and hydration status 3) Improve fluid/electrolyte balance w/ adequate po intake and medical mgmt of hypercalcemia 4) Improve bowel regularity w/ adequate po intake and standing bowel meds w/o exac of constipation/development of diarrhea Result Diagrams: 01/16/19 05:35 01/16/19 05:35 Microbiology and Other Data: Microbiology 01/13/19 08:17 Aerobic Blood Culture - Preliminary Blood Venous No Growth Day 1 Anaerobic Blood Culture - Preliminary No Growth Day 1 01/13/19 08:04 Aerobic Blood Culture - Preliminary Blood Venous No Growth Day 1 Anaerobic Blood Culture - Preliminary No Growth Day 1 Assess/Plan/Problems-Billing Assessment: Ms. Nelson is a 74 y.o female with a past medical history of hypercalcemia related to lithium use, hyperparathyroidism, Parkinson, bipolar who presented with nausea, vomiting and not tolerating medications. - Patient Problems (1) Nausea & vomiting Current Visit: No Status: Acute Code(s): R11.2 - NAUSEA WITH VOMITING, UNSPECIFIED SNOMED Code(s): 10249610 Comment: Suspect this may be triggered by Hypercalcemia - did contact Dr. Mark - recommended surgical consult for parathyroidectomy - Dr. Pastor will see, if not a surgical canidate then to give IV zoledronic 5mg prior to discharge - Continue scopolamine patch, zofran (2) Abdominal pain Current Visit: Yes Status: Acute Code(s): R10.9 - UNSPECIFIED ABDOMINAL PAIN SNOMED Code(s): 85791875 Comment: c/o of abd pain overnight - was given morphine 2 mg - with relief _ patient with suprapubic abd pain on exam , left CVAT tenderness could be related to UTI vs ileus or combination of both - abd x ray - showed ileus no obstruction- continues with pain - will get CT of the ABD/pelvis - suspect this could be related to UTI but constipation is within the differential - urine culture- shows klebsiella pneumoniae- sens pending - started ceftriaxone (3) UTI (urinary tract infection) Current Visit: Yes Status: Acute Comment: Likely related to chronic espinoza placement suspect this could be contributing to her abd pain - urine culture with Klebsiella pneumoniae- pending sens. - will start ceftriaxone (4) Malnutrition Current Visit: Yes Status: Acute Code(s): E46 - UNSPECIFIED PROTEIN-CALORIE MALNUTRITION SNOMED Code(s): 57297385 Comment: Severe -Patient has severe malnutirtion d/t nausea and vomiting , no appeitite - nutrition consulted - will start patient on TPN today (5) Hyperparathyroidism due to lithium therapy Current Visit: No Status: Acute Code(s): E21.1 - SECONDARY HYPERPARATHYROIDISM, NOT ELSEWHERE CLASSIFIED SNOMED Code(s): 879986252 Comment: - Hypercalcemia chronic and likely worsened by immobility, inabilty to take medications consistantly. -Dr. Mark consulted- recommended consult to Dr. Pastor in regards to parathyroidectomy- Dr. Pastor contacted - will see the patient today -Discontinuation of lithium deemed not a viable option due to successful mood stabilization. - Cont sensipar at this point BID - if patient does not have suregery then will need IV zoledronic and weekly bmp at discharge (6) Neurogenic bladder Current Visit: No Status: Acute Code(s): N31.9 - NEUROMUSCULAR DYSFUNCTION OF BLADDER, UNSPECIFIED SNOMED Code(s): 818404040 Comment: - chronic espinoza. - failed voiding trial on last admission - Continue Flomax. (7) Parkinson disease Current Visit: No Status: Acute Code(s): G20 - PARKINSON'S DISEASE SNOMED Code(s): 23283490 Comment: - continue Sinimet (8) Bipolar disorder Current Visit: No Status: Chronic Priority: High Comment: - Stable - Complex, shelter Psych follow up with Dr Torres. - Continue [place], Lamotrigine, clonazepam, mirtazapine, sertraline - tolerating some meds (9) COPD (chronic obstructive pulmonary disease) Current Visit: No Status: Chronic Priority: High Code(s): J44.9 - CHRONIC OBSTRUCTIVE PULMONARY DISEASE, UNSPECIFIED SNOMED Code(s): 55755594 Comment: - asymptomatic - continue Spiriva, Symbicort (10) DVT prophylaxis Current Visit: No Status: Acute Priority: Medium Code(s): PHX1812 - SNOMED Code(s): 831360082 Comment: - SCD's (11) Full code status Current Visit: No Status: Acute Code(s): Z78.9 - OTHER SPECIFIED HEALTH STATUS SNOMED Code(s): 291541065 Comment: Status and Disposition: inpatient
--- NOTE | 2019-01-15 14:32 | CONS ---
DICTATION ENDS ABRUPTLY - FULLY REDICTATED CONSULTATION REPORT: DATE OF CONSULT: 01/15/19 SERVICE: General Surgery. ATTENDING SURGEON: Wendy Pastor MD REASON FOR CONSULT: Primary hyperparathyroidism, lithium-induced. HISTORY OF PRESENT ILLNESS: Ms. Nelson is a 74-year-old female with multiple medical problems including Parkinson disease, bipolar disorder, depression, anxiety, COPD, frequent UTIs, and hyperparathyroidism who presented to the emergency room on 01/13/19 with complaints of nausea, vomiting, anorexia, and weakness. The patient was found to be hypercalcemic and admitted to the hospitalist service. Of note, this is the patient's third hospitalization in the past approximately 3 months for the same clinical scenario of nausea, vomiting, and essentially failure to thrive. Per the patient's , she was in her typical state of health prior to September and October this year. He says that around this time in early summer, she started requiring the walker to ambulate around her home and outside. He says that they would typically go out for dinner every night and he started to notice that she was becoming weaker and unable to walk on her own. She was hospitalized in early October for her first episode of severe nausea, vomiting, constipation, and abdominal pain where she was also found to be hypercalcemic DICTATION ENDS ABRUPTLY [id number]/[facility] #: [id number] MTDD
[2019-01-15] MEDS ORDERED: TPN* 24 HR with Dextrose 50% Water* 500 ML, Amino Acid Infusion 10%* 850 ML, Sterile Wa... CENTR SCH ×27 (17:00)
--- NOTE | 2019-01-15 18:25 | CONS ---
CONSULTATION REPORT: DATE OF CONSULT: 01/15/19 SERVICE: General Surgery. ATTENDING SURGEON: Dr. Wendy Pastor. REASON FOR CONSULT: Primary hyperparathyroidism, lithium-induced. HISTORY OF PRESENT ILLNESS: Ms. Nelson is a 74-year-old female with a history of multiple medical problems including Parkinson's disease, bipolar disorder, depression, anxiety, COPD, frequent UTIs, and hyperparathyroidism, who presented to the emergency room on 01/13/19 with complaints of nausea, vomiting, anorexia, and weakness. Of note, this is the patient's fourth hospitalization since October 2018 for similar clinical complaints of nausea, vomiting, constipation, and essentially failure to thrive. Per the patient's , she was in her typical state of health prior to September and October of this year. He says that around early summer, she started requiring a walker to ambulate around her home and outside. He says that they would typically go out for dinner every night and then he started to notice that she was becoming weaker and unable to walk on her own. She was hospitalized in early October for her first episode of severe nausea, vomiting, constipation, and abdominal pain and was also found to be hypercalcemic. It was thought that the hypercalcemia ( peak at 12) was likely exacerbated by her dehydration. She has been discharged from the hospital multiple times and continually readmitted for these similar episodes. Her calcium levels have been able to be controlled with the use of Sensipar; however, when her says that she only is able to leave from the hospital for 5 to 6 days at a time, during which time she progressively becomes more unable to tolerate food, weaker and subsequently cannot tolerate taking oral medications. She has also been worked up thoroughly with a gastric emptying study and EGD for GI workup to potentially explain why she is having so much difficulty with tolerating oral intake. Her gastric emptying study was normal. Dr. Mark from Endocrinology has also seen her multiple times. He had seen her approximately 1 year ago as an outpatient to evaluate her lithium- induced hypercalcemia, and he has also seen her during her multiple hospitalizations for hypercalcemia. Per the patient and her , she has been on lithium for probably over 30 years. Her says that they have attempted to take her off her lithium, but she was not able to tolerate this. She has also been evaluated for her Parkinson's disease and was diagnosed with this over 10 years ago. The patient's says that her decline over the summer has been rapid and unexplained; and, at this point, there is consideration that her chronic hypercalcemia might be a contributing etiology for this persistent abdominal pain and constipation. The patient has never had any neck surgery before. She has no history of radiation to her chest or her neck and she also has no history of familial endocrinopathies or hyperparathyroidism. PAST MEDICAL HISTORY: 1. Parkinson's disease. 2. Bipolar disorder. 3. Depression. 4. Anxiety. 5. Neurogenic bladder. 6. Urethral strictures with frequent UTIs, now has a chronic Capellan. 7. Cognitive impairment. 8. COPD with as needed use of O2. 9. Hyperparathyroidism. PAST SURGICAL HISTORY: 1. Right total knee replacement. 2. Oophorectomy. 3. Right hand surgery. HOME MEDICATIONS: 1. Carbidopa/levodopa. 2. Symbicort. 3. Dulcolax. 4. Aspirin 81 mg daily. 5. Vitamin B12. 6. Sensipar. 7. [place] 300 mg p.o. b.i.d. 8. Probiotic. 9. Docusate. 10. Omeprazole. 11. Remeron. 12. Magnesium oxide. 13. MiraLAX. 14. Zofran. 15. Scopolamine. 16. Propranolol. 17. Tamsulosin. 18. Sertraline. 19. Lamictal. 20. Clonazepam. 21. Spiriva. ALLERGIES: She has an allergy to AMOXICILLIN, CLARITHROMYCIN, AUGMENTIN, MOXIFLOXACIN, and SULFA. FAMILY HISTORY: No known endocrine disorders in her family. SOCIAL HISTORY: The patient lives with her . She is a former smoker. 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 She has a 24-hour aide at home. REVIEW OF SYSTEMS: Negative except for abdominal pain, nausea, vomiting, constipation. PHYSICAL EXAM: Vital Signs: Temperature is 97.8, pulse is 54, respiratory rate is 18, O2 sat is 93% O2 on 2 L nasal cannula, blood pressure is 140/85. General: She is a very tired, ill-appearing, cachectic woman, lying in bed , in no great distress. HEENT is normocephalic, atraumatic. No thyromegaly. Cardiovascular: Regular rate and rhythm. Respiratory: Clear to auscultation bilaterally. Abdomen is soft, nondistended, nontender. Capellan catheter is in place. DIAGNOSTIC STUDIES/LAB DATA: Sodium 144, potassium is 3.9, CO2 is 115, creatinine is 0.69, glucose is 97, calcium is 10.3. PTH on 08/29/18 is 106.2. Imaging: Thyroid ultrasound on 09/19/18: Nodules in the right lobe, all appeared to be of low suspicion, measurement of the largest 9 x 10 x 10 mm. In the left lobe of the thyroid, hypoechoic nodule measuring 14 x 6 x 6 mm. It is of intermediate suspicion. Mid pole nodule medially to the left thyroid lobe measures 15 x 11 x 10, which is isoechoic to hyperechoic. It is of low suspicion. On 01/14/19, CT soft tissue neck shows no parathyroid adenomas visualized. On 01/15/19, parathyroid scan nuclear medicine - shows scintigraphic findings suggestive of potential parathyroid adenoma at the level of the superior left thyroid lobe or adjacent to the thyroid lobe; however, no corresponding nodule evident on CT scan. Further assessment of the left thyroid lobe as well as the left parathyroid region with ultrasound suggested for further evaluation for parathyroid adenoma. ASSESSMENT AND PLAN: Ms. Nelson is a 74-year-old female with multiple medical problems, who has experienced a rapid decline in her health over the past 3 to 4 months where she has been continually readmitted for nausea, vomiting, constipation, and failure to thrive. There is no clear GI etiology for her persistent nausea, vomiting, and constipation. When she does return to the hospital, her calcium levels are always elevated, although they are only mildly elevated (11-12) and normalize to 9 with medical management. She likely has lithium-induced hyperparathyroidism, although she may also may have a component of primary hyperparathyroidism as well. I have discussed her plan of care with Dr. Mark and it is certainly possible that the patient could undergo a parathyroidectomy for her persistent lithium-induced hyperparathyroidism, although her severe debility makes her a poor surgical candidate. We have ordered localization studies, which have failed to definitively localize any discrete parathyroid adenomas. I have discussed today with the patient and her that even if the parathyroidectomy is performed and her calcium levels normalized, it is still possible that she may have persistent nausea, vomiting, and failure to thrive since the etiology is likely multi- factorial. Surgery would most likely require a subtotal parathyroidectomy given that with lithium- induced hyperparathyroidism, there is typically hyperplasia of all 4 glands and localization studies have not identified a single dominant parathyroid adenoma. I will speak with the patient and her further about next steps and surgery if they wish to undergo this. Currently, her calcium levels have normalized and surgery can potentially be done as an outpatient. [id number]/[facility] #: [id number] NEMO
[2019-01-15] MEDS: Mirtazapine TAB* 15 MG PO SCH (21:18)
[2019-01-16 06:07] LABS: Hematocrit 23 % (35-47); Hemoglobin 7.5 g/dL (12.0-16.0); Mean Corpuscular HGB Conc 33 g/dL (31-36); Mean Corpuscular Hemoglobin 28 pg (27-31); Mean Corpuscular Volume 87 fL (80-97); Mean Platelet Volume 10.2 fL (7.4-10.4); Platelet Count 232 10^3/uL (150-450); Red Blood Count 2.65 10^6 /uL (3.70-4.87); Red Cell Distribution Width 20 % (10-15); White Blood Count 7.1 10^3/uL (3.5-10.8)
[2019-01-16 06:20] LABS: BUN/Creatinine Ratio 33.8 (8-20); Calcium 9.6 mg/dL (8.6-10.3); EGFR African American 108.4 (>60); EGFR Non-African American 89.6 (>60); Potassium 3.4 mmol/L (3.5-5.0)
[2019-01-16] MEDS: Mometasone/Formoter 200/5 MDI INH SCH ×2 (07:32→19:35)
[2019-01-16] MEDS: SPIRIVA Respimat* (tiotropium) 2.5 mcg/inh Inhaler INH SCH (07:33)
[2019-01-16] MEDS: Propranolol TAB* 10 MG PO SCH (08:25)
[2019-01-16] MEDS: Cinacalcet TAB* 30 MG PO SCH ×2 (08:28→21:09)
[2019-01-16] MEDS: CMCS: Lithium Carbonate ER (NF) 300 MG TAB.ER PO SCH ×2 (08:28→21:09)
[2019-01-16] MEDS: Sertraline* 100 MG TAB PO SCH (08:29)
[2019-01-16] MEDS: lamoTRIgine TAB(*) 100 MG PO SCH ×2 (08:29→21:10)
[2019-01-16] MEDS: Cyanocobalamin TAB* 500 MCG PO SCH ×2 (08:29→21:08)
[2019-01-16] MEDS: clonazePAM TAB(*) 0.5 MG PO SCH ×3 (08:30→21:10)
[2019-01-16] MEDS: Pantoprazole IV* 40 MG IV SCH (08:30)
[2019-01-16] MEDS: Docusate CAP* 100 MG PO SCH ×2 (08:30→21:07)
[2019-01-16] MEDS: Lactulose* 15 ML UDC PO SCH ×3 (08:30→21:10)
[2019-01-16] MEDS: Polyethylene Glycol 3350* 17 GM PACKET PO SCH ×2 (08:31→21:08)
[2019-01-16] MEDS: Carbidopa/Levodop 25/100 MG TAB(*) PO SCH ×3 (08:38→21:11)
[2019-01-16] MEDS: cefTRIAXone(*) 1 GM in NS 0.9% 50 ML* 50 ML IVPB SCH (12:26)
--- NOTE | 2019-01-16 13:23 | PN ---
Subjective Date of Service: 01/16/19 Interval History: Patient is poor historian. She denies pain. Has had less nausea, taking pills orally since starting TPN yesterday. Spoke with , re lithium-induced hyperparathyroidism, FTT, nausea, etc. He feels she cannot go off lithium, would psychiatrically unstable per previous experience. Spoke with Dr. Pastor, she plans to perform subtotal parathyroidectomy in 1-2 months as outpatient. also wants palliative care consult. Family History: Unchanged from Admission Social History: Unchanged from Admission Past Medical History: Unchanged from Admission Objective Active Medications: Acetaminophen (Tylenol Tab*) 650 mg PO Q8H PRN PRN Reason: PAIN - MODERATE Carbidopa/Levodopa (Sinemet 25/100 Tab(*)) 3 tab PO 0830,1300,1830 [facility] Last Admin: 01/16/19 08:38 Dose: 3 tab Cinacalcet (Sensipar Tab*) 30 mg PO BID WITH MEALS [facility] Last Admin: 01/16/19 08:28 Dose: 30 mg Clonazepam (Klonopin Tab(*)) 0.5 mg PO TID [facility] Last Admin: 01/16/19 08:30 Dose: 0.5 mg Cyanocobalamin (Vitamin B12 Tab*) 500 mcg PO BID [facility] Last Admin: 01/16/19 08:29 Dose: 500 mcg Docusate Sodium (Colace Cap*) 100 mg PO BID [facility] Last Admin: 01/16/19 08:30 Dose: 100 mg Heparin Sodium (Porcine) (Heparin Flush Picc/Ml/Cvc(*)) 1 - 3 ml FLUSH 0600, 1800 [facility]; Protocol Last Admin: 01/16/19 05:26 Dose: 1 ml Ceftriaxone Sodium 1 gm/ (Sodium Chloride) 50 mls @ 100 mls/hr IVPB Q24H [facility] Last Admin: 01/16/19 12:26 Dose: 100 mls/hr Dextrose 500 ml/ Amino Acids 850 ml/ Sterile Water 150 ml/Fat Emulsion Intravenous 250 ml/ Sodium Chloride 100 meq/Potassium Chloride 50 meq/Potassium Phosphate 15 mmole/Magnesium Sulfate 10 meq/Multivitamins 10 ml/ Trace Metals 1 ml/ Nutrition ( Parenteral) 1,818.463 mls @ 75.769 mls/hr CENTR 1700 [facility]; Protocol Stop: 01/16/19 16:59 Last Admin: 01/15/19 17:24 Dose: 75.769 mls/hr Dextrose 500 ml/ Amino Acids 850 ml/ Sterile Water 150 ml/Fat Emulsion Intravenous 250 ml/ Sodium Chloride 100 meq/Potassium Chloride 60 meq/Potassium Phosphate 15 mmole/Magnesium Sulfate 10 meq/Multivitamins 10 ml/ Trace Metals 1 ml/ Nutrition ( Parenteral) 1,823.463 mls @ 75.769 mls/hr CENTR 1700 [facility]; Protocol Lactulose (Lactulose*) 15 ml PO TID [facility] Last Admin: 01/16/19 08:30 Dose: 15 ml Lamotrigine (Lamictal Tab(*)) 100 mg PO BID [facility] Last Admin: 01/16/19 08:29 Dose: 100 mg [place] Carbonate ([place] Carbonate Er (Nf)) 300 mg PO BID [facility]; Protocol Last Admin: 01/16/19 08:28 Dose: 300 mg Mirtazapine (Remeron Tab*) 15 mg PO BEDTIME EDVIN Last Admin: 01/15/19 21:18 Dose: 15 mg Mometasone Furoate/Formoterol Fumar (Dulera 200/5 Mdi*) 2 puff INH BID [facility]; Protocol Last Admin: 01/16/19 07:32 Dose: 2 puff Ondansetron HCl (Zofran Inj*) 4 mg IV Q6H PRN PRN Reason: NAUSEA Last Admin: 01/15/19 21:24 Dose: 4 mg Pantoprazole Sodium (Protonix Iv*) 40 mg IV DAILY [facility] Last Admin: 01/16/19 08:30 Dose: 40 mg Polyethylene Glycol/Electrolytes (Miralax*) 17 gm PO BID [facility] Last Admin: 01/16/19 08:31 Dose: 17 gm Propranolol HCl (Inderal Tab*) 10 mg PO QAM [facility] Last Admin: 01/16/19 08:25 Dose: 10 mg Scopolamine (Transderm-Scop 1.5 Mg Patch*) 1 patch TRANSDERM Q72H [facility] Last Admin: 01/13/19 22:21 Dose: 1 patch Sertraline HCl (Zoloft*) 150 mg PO QAM [facility] Last Admin: 01/16/19 08:29 Dose: 150 mg Tiotropium [place] (Spiriva Respimat 2.5 Mcg) 2 puff INH DAILY [facility] Last Admin: 01/16/19 07:33 Dose: 2 puff Vital Signs - 8 hr 01/16/19 01/16/19 01/16/19 07:00 07:36 08:30 Temperature 36.6 C Pulse Rate 72 71 Respiratory 18 14 16 Rate Blood Pressure 116/77 (mmHg) O2 Sat by Pulse 100 98 Oximetry Oxygen Devices in Use Now: None Appearance: chronically ill appearing Eyes: No Scleral Icterus Ears/Nose/Mouth/Throat: NL Teeth, Lips, Gums Neck: NL Appearance and Movements; NL JVP Respiratory: Symmetrical Chest Expansion and Respiratory Effort, Clear to Auscultation Cardiovascular: NL Sounds; No Murmurs; No JVD Abdominal: NL Sounds; No Tenderness; No Distention Neurological: - - quiet voice, no tremor Lines/Tubes/Other Access: Clean, Dry and Intact PICC Line Nutrition: TPN - Nutrition: Malnutrition Diagnosis/Plan Malnutrition Assessment by Registered Dietitian: Malnutrition Assessment Clinical Characteristics Chronic,Severe Malnutrition Assessment: Muscle Wasting - Temporal muscle (moderate) Criteria Inadequate Oral Intake - Pt reports having poor appetite, consistent w/ visits x1 mo. - Anticipate meeting <75% nutrient needs >1 mo. ( severe) Unintentional Weight Loss - Current wt 112lb, prev wt on record 126lb (11/2018) - 11.11% loss x1 mo (severe) Malnutrition Assessment: Nutritional Supplementals/Nourishments - Pt not Interventions amenable to scheduled nourishments/supplements at this time; will continue to monitor intakes and offer again as indicated. GI Related - Recommend continuing antiemetics PRN and standing bowel meds; will monitor GI s/ sx for impact on intake. Malnutrition Assessment: Goals 1) Pt will tolerate least restrictive dietary textures w/o difficulty chewing/swallowing or exac of GI s/sx 2) Adequate po intake to replete lean body mass , support wt gain as desired and hydration status 3) Improve fluid/electrolyte balance w/ adequate po intake and medical mgmt of hypercalcemia 4) Improve bowel regularity w/ adequate po intake and standing bowel meds w/o exac of constipation/development of diarrhea Result Diagrams: 01/16/19 05:35 01/16/19 05:35 Microbiology and Other Data: Microbiology 01/13/19 19:15 Urine Urine Culture - Final Klebsiella Pneumoniae 01/13/19 08:17 Blood Venous Aerobic Blood Culture - Preliminary 01/13/19 08:17 Blood Venous Anaerobic Blood Culture - Preliminary No Growth Day 3 No Growth Day 3 Assess/Plan/Problems-Billing Assessment: Ms. Nelson is a 74 y.o female with a past medical history of hypercalcemia related to lithium use, hyperparathyroidism, Parkinson, bipolar who presented with nausea, vomiting and not tolerating medications. - Patient Problems (1) Hyperparathyroidism due to lithium therapy Current Visit: Yes Status: Acute Priority: High Code(s): E21.1 - SECONDARY HYPERPARATHYROIDISM, NOT ELSEWHERE CLASSIFIED SNOMED Code(s): 087590390 Comment: - Hypercalcemia chronic and likely worsened by immobility, inabilty to take medications consistantly. -spoke w/ Dr. Mark, he will explain plan to Dr. Pastor contacted - she plans outpatient surgery -Will consider 1 dose Zometa - Cont sensipar at this point BID (2) UTI (urinary tract infection) Current Visit: Yes Status: Acute Priority: Medium Comment: -Likely related to chronic espinoza placement - urine culture with Klebsiella pneumoniae- sensitive to ceftriaxone - will start ceftriaxone (3) FTT (failure to thrive) in adult Current Visit: Yes Status: Acute Priority: Medium Comment: - Nutritional consult - recommended ensure clear - patient refused - Suspect that this is FTT, will have palliative care consult today - Marinol may be option outpatient - Responding well to TPN. (4) Anemia Current Visit: Yes Status: Chronic Priority: Medium Code(s): D64.9 - ANEMIA, UNSPECIFIED SNOMED Code(s): 727924162 Comment: -Reviewed EGD this month, colonoscopy 2 years ago -Needs FOBT -Will have iron, other anemia workup on AM labs (5) DVT prophylaxis Current Visit: Yes Status: Acute Priority: Low Code(s): YMO2764 - SNOMED Code(s): 552802750 Comment: - SCD's (6) Bipolar disorder Current Visit: No Status: Chronic Priority: High Comment: - Stable, difficult to find alternative to lithium - Continue [place], Lamotrigine, clonazepam, mirtazapine, sertraline - tolerating some meds Status and Disposition: inpatient
--- NOTE | 2019-01-16 13:59 | PN ---
Progress Note - Progress Note Date of Service: 01/16/19 Note: Surgery Progress Note S: Patient looks and feels better today. Tolerating PO. Started TPN yesterday. She says she has not had nausea or emesis. Was able to sit in a chair yesterday. No BM. Calcium is normal today. O: Vital Signs: Temp Pulse Resp BP Pulse Ox 97.8 F 71 16 116/77 98 01/16/19 07:00 01/16/19 07:36 01/16/19 10:30 01/16/19 07:00 01/16/19 07:36 Laboratory Last Values WBC 7.1 10^3/uL (3.5-10.8) 01/16/19 05:35 RBC 2.65 10^6 /uL (3.70-4.87) L 01/16/19 05:35 Hgb 7.5 g/dL (12.0-16.0) L 01/16/19 05:35 Hct 23 % (35-47) L 01/16/19 05:35 MCV 87 fL (80-97) 01/16/19 05:35 MCH 28 pg (27-31) 01/16/19 05:35 MCHC 33 g/dL (31-36) 01/16/19 05:35 RDW 20 % (10-15) H 01/16/19 05:35 Plt Count 232 10^3/uL (150-450) 01/16/19 05:35 MPV 10.2 fL (7.4-10.4) 01/16/19 05:35 Neut % (Auto) 82.5 % 01/14/19 06:48 Lymph % (Auto) 10.0 % 01/14/19 06:48 [place] % (Auto) 6.2 % 01/14/19 06:48 Eos % (Auto) 0.9 % 01/14/19 06:48 Baso % (Auto) 0.4 % 01/14/19 06:48 Absolute Neuts (auto) 7.1 10^3/ul (1.5-7.7) 01/14/19 06:48 Absolute Lymphs (auto) 0.9 10^3/ul (1.0-4.8) L 01/14/19 06:48 Absolute Monos (auto) 0.5 10^3/ul (0-0.8) 01/14/19 06:48 Absolute Eos (auto) 0.1 10^3/ul (0-0.6) 01/14/19 06:48 Absolute Basos (auto) 0.0 10^3/ul (0-0.2) 01/14/19 06:48 Absolute Nucleated RBC 0.0 10^3/ul 01/14/19 06:48 Nucleated RBC % 0.0 01/14/19 06:48 Hypochromasia 1+ 01/14/19 06:48 Anisocytosis 2+ 01/14/19 06:48 Acanthocytes (Spur) 1+ 01/14/19 06:48 INR (Anticoag Therapy) 1.49 (0.82-1.09) H 01/13/19 08:04 APTT 34.5 seconds (26.0-38.0) 01/13/19 08:04 Sodium 144 mmol/L (135-145) 01/16/19 05:35 Potassium 3.4 mmol/L (3.5-5.0) L 01/16/19 05:35 Chloride 116 mmol/L (101-111) H 01/16/19 05:35 Carbon Dioxide 24 mmol/L (22-32) 01/16/19 05:35 Anion Gap 4 mmol/L (2-11) 01/16/19 05:35 BUN 22 mg/dL (6-24) 01/16/19 05:35 Creatinine 0.65 mg/dL (0.51-0.95) 01/16/19 05:35 Est GFR ( Amer) 108.4 (>60) 01/16/19 05:35 Est GFR (Non-Af Amer) 89.6 (>60) 01/16/19 05:35 BUN/Creatinine Ratio 33.8 (8-20) H 01/16/19 05:35 Glucose 115 mg/dL (70-100) H 01/16/19 05:35 POC Glucose (mg/dL) 159 mg/dL (70-100) H 01/16/19 08:16 Lactic Acid 1.2 mmol/L (0.5-2.0) 01/13/19 12:33 Calcium 9.6 mg/dL (8.6-10.3) 01/16/19 05:35 Magnesium 2.0 mg/dL (1.9-2.7) 01/13/19 08:04 Total Bilirubin 0.60 mg/dL (0.2-1.0) 01/13/19 08:04 AST 4 U/L (13-39) L 01/13/19 08:04 ALT < 3 U/L (7-52) L 01/13/19 08:04 Alkaline Phosphatase 186 U/L (34-104) H 01/13/19 08:04 Troponin I 0.00 ng/mL (<0.04) 01/13/19 08:04 Total Protein 6.0 g/dL (6.4-8.9) L 01/13/19 08:04 Albumin 3.8 g/dL (3.2-5.2) 01/13/19 08:04 Globulin 2.2 g/dL (2-4) 01/13/19 08:04 Albumin/Globulin Ratio 1.7 (1-3) 01/13/19 08:04 Urine Color Yellow 01/13/19 19:15 Urine Appearance Cloudy 01/13/19 19:15 Urine pH 7.0 (5-9) 01/13/19 19:15 Ur Specific [place] 1.008 (1.010-1.030) L 01/13/19 19:15 Urine Protein Negative (Negative) 01/13/19 19:15 Urine Ketones Negative (Negative) 01/13/19 19:15 Urine Blood 1+ (Negative) A 01/13/19 19:15 Urine Nitrate Negative (Negative) 01/13/19 19:15 Urine Bilirubin Negative (Negative) 01/13/19 19:15 Urine Urobilinogen Negative (Negative) 01/13/19 19:15 Ur Leukocyte Esterase 3+ (Negative) A 01/13/19 19:15 Urine WBC (Auto) 3+(>20/hpf) (Absent) A 01/13/19 19:15 Urine RBC (Auto) 3+(>10/hpf) (Absent) A 01/13/19 19:15 Urine Bacteria 1+ (Absent) A 01/13/19 19:15 Urine Glucose Negative (Negative) 01/13/19 19:15 [place] 0.85 mmol/L (0.6-1.2) 01/13/19 08:04 Intake & Output 01/15/19 01/16/19 01/16/19 22:59 06:59 14:59 Intake Total 1008 907 100 Output Total 1000 650 Balance 8 257 100 Intake: IV Fluids 568 NS 568 TPN/PPN 907 Oral 440 0 100 Output: [place] 1000 650 Other: Estimated Void Large # Bowel Movements 0 # Voids 1 A/P: 74 F with multiple medical problems including bipolar, Parkinsons, 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 - I spoke with Dr. Mark and Dr. Llamas today. Dr. Mark and I discussed plan with , Matthew, over the phone. Patient's calcim levels have normalized on Sensipar, as it has in the past. She is responsive to medical therapy but as an outpatient she seems to be intolerant for unclear reasons. I had discussed with yesterday that a parathyroidectomy would help to more durably normalize her calcium levels but it is unclear what effect this might have on the acute deconditioning and failure to thrive she has experienced over the past 3-4 months. It is likely that hypercalcemia is a contributing factor but not the sole etiology of her current medical state, since her calcium levels have been only in the 11-12 range. - I have reviewed her imaging studies for parathyroid localization, no clear dominant adenoma is identified. She will likely require a 4 gland exploration for 4 gland hyperplasia. Given that her calcium levels have normalized there is no urgency for a parathyroidectomy and it would be preferable if she were able to better optimized nutritionally and strength faust prior to surgery. - Dr. Mark plans on administering IV bisphosphonates. I will discuss surgery with and patient in person tomorrow.
--- NOTE | 2019-01-16 14:04 | PN ---
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 Calcium levels are have normalized with IV hydration and Sensipar 30mg daily. The case was discussed with primary team, endocrine surgery and patient's ; all are in agreement that hyperparathyroidism is contributing factor for patient's deconditioned status and that she has failed outpatient medical therapy with Sensipar due to inability to take oral medications. Sub-total parathyroidectomy is recommended for most patients with PTH-mediated malignancy, but her surgical candidacy is limited by poor nutritional status and risk of post-operative complications, including hypocalcemia. Therefore, the option of IV bisphosphonate (zoledronic acid 5mg IV x1) was offered. This therapy offers the chance to restore eucalcemia without the need for BID oral therapy and may allow an opportunity to improve nutritional functional status and undergo surgery at a later date. PLAN: - give IV zoledronic acid 5mg IV x1 this admission - d/c Sensipar - check calcium daily during admission - add vitamin D to TPN, if possible - check calcium weekly at discharge SUBJECTIVE: Modest improvement in pain/weakness overnight. Now on TPN. Still not able to ambulate. Acetaminophen (Tylenol Tab*) 650 mg PO Q8H PRN PRN Reason: PAIN - MODERATE Carbidopa/Levodopa (Sinemet 25/100 Tab(*)) 3 tab PO 0830,1300,1830 [facility] Last Admin: 01/16/19 08:38 Dose: 3 tab Cinacalcet (Sensipar Tab*) 30 mg PO BID WITH MEALS [facility] Last Admin: 01/16/19 08:28 Dose: 30 mg Clonazepam (Klonopin Tab(*)) 0.5 mg PO TID [facility] Last Admin: 01/16/19 08:30 Dose: 0.5 mg Cyanocobalamin (Vitamin B12 Tab*) 500 mcg PO BID [facility] Last Admin: 01/16/19 08:29 Dose: 500 mcg Docusate Sodium (Colace Cap*) 100 mg PO BID [facility] Last Admin: 01/16/19 08:30 Dose: 100 mg Heparin Sodium (Porcine) (Heparin Flush Picc/Ml/Cvc(*)) 1 - 3 ml FLUSH 0600, 1800 [facility]; Protocol Last Admin: 01/16/19 05:26 Dose: 1 ml Ceftriaxone Sodium 1 gm/ (Sodium Chloride) 50 mls @ 100 mls/hr IVPB Q24H [facility] Last Admin: 01/16/19 12:26 Dose: 100 mls/hr Dextrose 500 ml/ Amino Acids 850 ml/ Sterile Water 150 ml/Fat Emulsion Intravenous 250 ml/ Sodium Chloride 100 meq/Potassium Chloride 50 meq/Potassium Phosphate 15 mmole/Magnesium Sulfate 10 meq/Multivitamins 10 ml/ Trace Metals 1 ml/ Nutrition ( Parenteral) 1,818.463 mls @ 75.769 mls/hr CENTR 1700 Lactulose (Lactulose*) 15 ml PO TID [facility] Last Admin: 01/16/19 08:30 Dose: 15 ml Lamotrigine (Lamictal Tab(*)) 100 mg PO BID [facility] Last Admin: 01/16/19 08:29 Dose: 100 mg [place] Carbonate ([place] Carbonate Er (Nf)) 300 mg PO BID [facility]; Protocol Last Admin: 01/16/19 08:28 Dose: 300 mg Mirtazapine (Remeron Tab*) 15 mg PO BEDTIME [facility] Last Admin: 01/15/19 21:18 Dose: 15 mg Mometasone Furoate/Formoterol Fumar (Dulera 200/5 Mdi*) 2 puff INH BID [facility]; Protocol Last Admin: 01/16/19 07:32 Dose: 2 puff Ondansetron HCl (Zofran Inj*) 4 mg IV Q6H PRN PRN Reason: NAUSEA Last Admin: 01/15/19 21:24 Dose: 4 mg Pantoprazole Sodium (Protonix Iv*) 40 mg IV DAILY [facility] Last Admin: 01/16/19 08:30 Dose: 40 mg Pharmacy Profile Note (Scopolamine Patch Remove*) 1 note PATCH OFF ONCE ONE Stop: 01/16/19 22:01 Polyethylene Glycol/Electrolytes (Miralax*) 17 gm PO BID [facility] Last Admin: 01/16/19 08:31 Dose: 17 gm Propranolol HCl (Inderal Tab*) 10 mg PO QAM [facility] Last Admin: 01/16/19 08:25 Dose: 10 mg Scopolamine (Transderm-Scop 1.5 Mg Patch*) 1 patch TRANSDERM Q72H [facility] Last Admin: 01/13/19 22:21 Dose: 1 patch Sertraline HCl (Zoloft*) 150 mg PO QAM [facility] Last Admin: 01/16/19 08:29 Dose: 150 mg Tiotropium [place] (Spiriva Respimat 2.5 Mcg) 2 puff INH DAILY [facility] Last Admin: 01/16/19 07:33 Dose: 2 puff OBJECTIVE: Temp Pulse Resp BP Pulse Ox 97.8 F 71 16 116/77 98 01/16/19 07:00 01/16/19 07:36 01/16/19 10:30 01/16/19 07:00 01/16/19 07:36 WBC 7.1 10^3/uL (3.5-10.8) 01/16/19 05:35 RBC 2.65 10^6 /uL (3.70-4.87) L 01/16/19 05:35 Hgb 7.5 g/dL (12.0-16.0) L 01/16/19 05:35 Hct 23 % (35-47) L 01/16/19 05:35 MCV 87 fL (80-97) 01/16/19 05:35 MCH 28 pg (27-31) 01/16/19 05:35 MCHC 33 g/dL (31-36) 01/16/19 05:35 RDW 20 % (10-15) H 01/16/19 05:35 Plt Count 232 10^3/uL (150-450) 01/16/19 05:35 MPV 10.2 fL (7.4-10.4) 01/16/19 05:35 Neut % (Auto) 82.5 % 01/14/19 06:48 Lymph % (Auto) 10.0 % 01/14/19 06:48 [place] % (Auto) 6.2 % 01/14/19 06:48 Eos % (Auto) 0.9 % 01/14/19 06:48 Baso % (Auto) 0.4 % 01/14/19 06:48 Absolute Neuts (auto) 7.1 10^3/ul (1.5-7.7) 01/14/19 06:48 Absolute Lymphs (auto) 0.9 10^3/ul (1.0-4.8) L 01/14/19 06:48 Absolute Monos (auto) 0.5 10^3/ul (0-0.8) 01/14/19 06:48 Absolute Eos (auto) 0.1 10^3/ul (0-0.6) 01/14/19 06:48 Absolute Basos (auto) 0.0 10^3/ul (0-0.2) 01/14/19 06:48 Absolute Nucleated RBC 0.0 10^3/ul 01/14/19 06:48 Nucleated RBC % 0.0 01/14/19 06:48 Hypochromasia 1+ 01/14/19 06:48 Anisocytosis 2+ 01/14/19 06:48 Acanthocytes (Spur) 1+ 01/14/19 06:48 INR (Anticoag Therapy) 1.49 (0.82-1.09) H 01/13/19 08:04 APTT 34.5 seconds (26.0-38.0) 01/13/19 08:04 Sodium 144 mmol/L (135-145) 01/16/19 05:35 Potassium 3.4 mmol/L (3.5-5.0) L 01/16/19 05:35 Chloride 116 mmol/L (101-111) H 01/16/19 05:35 Carbon Dioxide 24 mmol/L (22-32) 01/16/19 05:35 Anion Gap 4 mmol/L (2-11) 01/16/19 05:35 BUN 22 mg/dL (6-24) 01/16/19 05:35 Creatinine 0.65 mg/dL (0.51-0.95) 01/16/19 05:35 Est GFR ( Amer) 108.4 (>60) 01/16/19 05:35 Est GFR (Non-Af Amer) 89.6 (>60) 01/16/19 05:35 BUN/Creatinine Ratio 33.8 (8-20) H 01/16/19 05:35 Glucose 115 mg/dL (70-100) H 01/16/19 05:35 POC Glucose (mg/dL) 159 mg/dL (70-100) H 01/16/19 08:16 Lactic Acid 1.2 mmol/L (0.5-2.0) 01/13/19 12:33 Calcium 9.6 mg/dL (8.6-10.3) 01/16/19 05:35 Magnesium 2.0 mg/dL (1.9-2.7) 01/13/19 08:04 Total Bilirubin 0.60 mg/dL (0.2-1.0) 01/13/19 08:04 AST 4 U/L (13-39) L 01/13/19 08:04 ALT < 3 U/L (7-52) L 01/13/19 08:04 Alkaline Phosphatase 186 U/L (34-104) H 01/13/19 08:04 Troponin I 0.00 ng/mL (<0.04) 01/13/19 08:04 Total Protein 6.0 g/dL (6.4-8.9) L 01/13/19 08:04 Albumin 3.8 g/dL (3.2-5.2) 01/13/19 08:04 Globulin 2.2 g/dL (2-4) 01/13/19 08:04 Albumin/Globulin Ratio 1.7 (1-3) 01/13/19 08:04 Urine Color Yellow 01/13/19 19:15 Urine Appearance Cloudy 01/13/19 19:15 Urine pH 7.0 (5-9) 01/13/19 19:15 Ur Specific [place] 1.008 (1.010-1.030) L 01/13/19 19:15 Urine Protein Negative (Negative) 01/13/19 19:15 Urine Ketones Negative (Negative) 01/13/19 19:15 Urine Blood 1+ (Negative) A 01/13/19 19:15 Urine Nitrate Negative (Negative) 01/13/19 19:15 Urine Bilirubin Negative (Negative) 01/13/19 19:15 Urine Urobilinogen Negative (Negative) 01/13/19 19:15 Ur Leukocyte Esterase 3+ (Negative) A 01/13/19 19:15 Urine WBC (Auto) 3+(>20/hpf) (Absent) A 01/13/19 19:15 Urine RBC (Auto) 3+(>10/hpf) (Absent) A 01/13/19 19:15 Urine Bacteria 1+ (Absent) A 01/13/19 19:15 Urine Glucose Negative (Negative) 01/13/19 19:15 [place] 0.85 mmol/L (0.6-1.2) 01/13/19 08:04
[2019-01-16] MEDS ORDERED: TPN* 24 HR with Dextrose 50% Water* 500 ML, Amino Acid Infusion 10%* 850 ML, Sterile Wa... CENTR SCH ×11 (17:00)
--- NOTE | 2019-01-16 20:52 | CONSULT ---
Palliative / Hospice Consult Ordering Provider: Ramses Llamas - PCP-Angela Leal Referal Reason: Goals of care/lactulose/none - Subjective Code Status: Full Code Advance Directives Location: No Advance Directives - History or Present Illness History or Present Illness: 74yo female with Parkinson's disease presents to ER with weakness, nausea and vomiting. PMH is significant for parkinson's diagnosed 7yrs ago, bipolar on lithium, depression, anxiety, h/o neurogenic bladder, myotonic cognitive impairment, frequent UTIs and hypoparathyroidism. PSHx ex tob, no etoh no drug use, with children. Studies CXR neg, ekg nsr, Echo-55-60%, Neck CT-no parathyroid adnoma noted, abd-small & large bowel ileus, Abd/Pel CT-gaseous distention w/o dilatation, cholelithiasis, parathyroid w/ spect-adenoma L superior thyroid lobe, H/H 7.5/23, BUN/Cr 72/.65, egfr 89.6, Ca 9.6 and alb 3.8. Since Mar pt has had 5 ER visits and 3 hospitalizations. Pt is admitted with failure to thrive, dehydration and hypercalcemia. All history is from pt, family and medical record. Lab Values: Abnormal Lab Results 01/15/19 01/16/19 01/16/19 21:15 02:24 05:35 WBC RBC Hgb Hct MCV MCH MCHC RDW Plt Count MPV Sodium 144 Potassium 3.4 L Chloride 116 H Carbon Dioxide 24 Anion Gap 4 BUN 22 Creatinine 0.65 Est GFR ( Amer) 108.4 Est GFR (Non-Af Amer) 89.6 BUN/Creatinine Ratio 33.8 H Glucose 115 H POC Glucose (mg/dL) 200 H 203 H Calcium 9.6 Magnesium 01/16/19 01/16/19 01/16/19 05:35 08:16 17:10 WBC 7.1 RBC 2.65 L Hgb 7.5 L Hct 23 L MCV 87 MCH 28 MCHC 33 RDW 20 H Plt Count 232 MPV 10.2 Sodium Potassium Chloride Carbon Dioxide Anion Gap BUN Creatinine Est GFR ( Amer) Est GFR (Non-Af Amer) BUN/Creatinine Ratio Glucose POC Glucose (mg/dL) 159 H Calcium Magnesium 1.7 L 01/16/19 17:11 WBC RBC Hgb Hct MCV MCH MCHC RDW Plt Count MPV Sodium Potassium Chloride Carbon Dioxide Anion Gap BUN Creatinine Est GFR ( Amer) Est GFR (Non-Af Amer) BUN/Creatinine Ratio Glucose POC Glucose (mg/dL) 87 Calcium Magnesium Laboratory Last Values WBC 7.1 10^3/uL (3.5-10.8) 01/16/19 05:35 RBC 2.65 10^6 /uL (3.70-4.87) L 01/16/19 05:35 Hgb 7.5 g/dL (12.0-16.0) L 01/16/19 05:35 Hct 23 % (35-47) L 01/16/19 05:35 MCV 87 fL (80-97) 01/16/19 05:35 MCH 28 pg (27-31) 01/16/19 05:35 MCHC 33 g/dL (31-36) 01/16/19 05:35 RDW 20 % (10-15) H 01/16/19 05:35 Plt Count 232 10^3/uL (150-450) 01/16/19 05:35 MPV 10.2 fL (7.4-10.4) 01/16/19 05:35 Neut % (Auto) 82.5 % 01/14/19 06:48 Lymph % (Auto) 10.0 % 01/14/19 06:48 [place] % (Auto) 6.2 % 01/14/19 06:48 Eos % (Auto) 0.9 % 01/14/19 06:48 Baso % (Auto) 0.4 % 01/14/19 06:48 Absolute Neuts (auto) 7.1 10^3/ul (1.5-7.7) 01/14/19 06:48 Absolute Lymphs (auto) 0.9 10^3/ul (1.0-4.8) L 01/14/19 06:48 Absolute Monos (auto) 0.5 10^3/ul (0-0.8) 01/14/19 06:48 Absolute Eos (auto) 0.1 10^3/ul (0-0.6) 01/14/19 06:48 Absolute Basos (auto) 0.0 10^3/ul (0-0.2) 01/14/19 06:48 Absolute Nucleated RBC 0.0 10^3/ul 01/14/19 06:48 Nucleated RBC % 0.0 01/14/19 06:48 Hypochromasia 1+ 01/14/19 06:48 Anisocytosis 2+ 01/14/19 06:48 Acanthocytes (Spur) 1+ 01/14/19 06:48 INR (Anticoag Therapy) 1.49 (0.82-1.09) H 01/13/19 08:04 APTT 34.5 seconds (26.0-38.0) 01/13/19 08:04 Sodium 144 mmol/L (135-145) 01/16/19 05:35 Potassium 3.4 mmol/L (3.5-5.0) L 01/16/19 05:35 Chloride 116 mmol/L (101-111) H 01/16/19 05:35 Carbon Dioxide 24 mmol/L (22-32) 01/16/19 05:35 Anion Gap 4 mmol/L (2-11) 01/16/19 05:35 BUN 22 mg/dL (6-24) 01/16/19 05:35 Creatinine 0.65 mg/dL (0.51-0.95) 01/16/19 05:35 Est GFR ( Amer) 108.4 (>60) 01/16/19 05:35 Est GFR (Non-Af Amer) 89.6 (>60) 01/16/19 05:35 BUN/Creatinine Ratio 33.8 (8-20) H 01/16/19 05:35 Glucose 115 mg/dL (70-100) H 01/16/19 05:35 POC Glucose (mg/dL) 87 mg/dL (70-100) 01/16/19 17:11 Lactic Acid 1.2 mmol/L (0.5-2.0) 01/13/19 12:33 Calcium 9.6 mg/dL (8.6-10.3) 01/16/19 05:35 Magnesium 1.7 mg/dL (1.9-2.7) L 01/16/19 17:10 Total Bilirubin 0.60 mg/dL (0.2-1.0) 01/13/19 08:04 AST 4 U/L (13-39) L 01/13/19 08:04 ALT < 3 U/L (7-52) L 01/13/19 08:04 Alkaline Phosphatase 186 U/L (34-104) H 01/13/19 08:04 Troponin I 0.00 ng/mL (<0.04) 01/13/19 08:04 Total Protein 6.0 g/dL (6.4-8.9) L 01/13/19 08:04 Albumin 3.8 g/dL (3.2-5.2) 01/13/19 08:04 Globulin 2.2 g/dL (2-4) 01/13/19 08:04 Albumin/Globulin Ratio 1.7 (1-3) 01/13/19 08:04 Urine Color Yellow 01/13/19 19:15 Urine Appearance Cloudy 01/13/19 19:15 Urine pH 7.0 (5-9) 01/13/19 19:15 Ur Specific [place] 1.008 (1.010-1.030) L 01/13/19 19:15 Urine Protein Negative (Negative) 01/13/19 19:15 Urine Ketones Negative (Negative) 01/13/19 19:15 Urine Blood 1+ (Negative) A 01/13/19 19:15 Urine Nitrate Negative (Negative) 01/13/19 19:15 Urine Bilirubin Negative (Negative) 01/13/19 19:15 Urine Urobilinogen Negative (Negative) 01/13/19 19:15 Ur Leukocyte Esterase 3+ (Negative) A 01/13/19 19:15 Urine WBC (Auto) 3+(>20/hpf) (Absent) A 01/13/19 19:15 Urine RBC (Auto) 3+(>10/hpf) (Absent) A 01/13/19 19:15 Urine Bacteria 1+ (Absent) A 01/13/19 19:15 Urine Glucose Negative (Negative) 01/13/19 19:15 [place] 0.85 mmol/L (0.6-1.2) 01/13/19 08:04 - Objective Active Medications: Acetaminophen (Tylenol Tab*) 650 mg PO Q8H PRN PRN Reason: PAIN - MODERATE Carbidopa/Levodopa (Sinemet 25/100 Tab(*)) 3 tab PO 0830,1300,1830 [facility] Last Admin: 01/16/19 17:56 Dose: Not Given Cinacalcet (Sensipar Tab*) 30 mg PO BID WITH MEALS [facility] Last Admin: 01/16/19 08:28 Dose: 30 mg Clonazepam (Klonopin Tab(*)) 0.5 mg PO TID [facility] Last Admin: 01/16/19 15:14 Dose: 0.5 mg Cyanocobalamin (Vitamin B12 Tab*) 500 mcg PO BID [facility] Last Admin: 01/16/19 08:29 Dose: 500 mcg Docusate Sodium (Colace Cap*) 100 mg PO BID [facility] Last Admin: 01/16/19 08:30 Dose: 100 mg Heparin Sodium (Porcine) (Heparin Flush Picc/Ml/Cvc(*)) 1 - 3 ml FLUSH 0600, 1800 [facility]; Protocol Last Admin: 01/16/19 05:26 Dose: 1 ml Ceftriaxone Sodium 1 gm/ (Sodium Chloride) 50 mls @ 100 mls/hr IVPB Q24H [facility] Last Admin: 01/16/19 12:26 Dose: 100 mls/hr Dextrose 500 ml/ Amino Acids 850 ml/ Sterile Water 150 ml/Fat Emulsion Intravenous 250 ml/ Sodium Chloride 100 meq/Potassium Chloride 60 meq/Potassium Phosphate 15 mmole/Magnesium Sulfate 10 meq/Multivitamins 10 ml/ Trace Metals 1 ml/ Nutrition ( Parenteral) 1,823.463 mls @ 75.769 mls/hr CENTR 1700 [facility]; Protocol Last Admin: 01/16/19 18:13 Dose: 75.769 mls/hr Lactulose (Lactulose*) 15 ml PO TID [facility] Last Admin: 01/16/19 15:16 Dose: 15 ml Lamotrigine (Lamictal Tab(*)) 100 mg PO BID [facility] Last Admin: 01/16/19 08:29 Dose: 100 mg [place] Carbonate ([place] Carbonate Er (Nf)) 300 mg PO BID [facility]; Protocol Last Admin: 01/16/19 08:28 Dose: 300 mg Mirtazapine (Remeron Tab*) 15 mg PO BEDTIME [facility] Last Admin: 01/15/19 21:18 Dose: 15 mg Mometasone Furoate/Formoterol Fumar (Dulera 200/5 Mdi*) 2 puff INH BID [facility]; Protocol Last Admin: 01/16/19 19:35 Dose: 2 puff Ondansetron HCl (Zofran Inj*) 4 mg IV Q6H PRN PRN Reason: NAUSEA Last Admin: 01/15/19 21:24 Dose: 4 mg Pantoprazole Sodium (Protonix Iv*) 40 mg IV DAILY [facility] Last Admin: 01/16/19 08:30 Dose: 40 mg Pharmacy Profile Note (Scopolamine Patch Remove*) 1 note PATCH OFF ONCE ONE Stop: 01/16/19 22:01 Polyethylene Glycol/Electrolytes (Miralax*) 17 gm PO BID [facility] Last Admin: 01/16/19 08:31 Dose: 17 gm Propranolol HCl (Inderal Tab*) 10 mg PO QAM [facility] Last Admin: 01/16/19 08:25 Dose: 10 mg Scopolamine (Transderm-Scop 1.5 Mg Patch*) 1 patch TRANSDERM Q72H [facility] Last Admin: 01/13/19 22:21 Dose: 1 patch Sertraline HCl (Zoloft*) 150 mg PO QAM [facility] Last Admin: 01/16/19 08:29 Dose: 150 mg Tiotropium [place] (Spiriva Respimat 2.5 Mcg) 2 puff INH DAILY [facility] Last Admin: 01/16/19 07:33 Dose: 2 puff Vital Signs: Vital Signs: Temp Pulse Resp BP Pulse Ox 98.3 F 72 18 129/68 100 01/16/19 12:38 01/16/19 12:38 01/16/19 15:14 01/16/19 12:38 01/16/19 12:38 Patient Weight: Weight 50.802 kg Intake and Output: Intake & Output 01/14/19 01/15/19 01/16/19 01/17/19 06:59 06:59 06:59 06:59 Intake Total 2160 1911 1915 1096 Output Total 1050 1600 1650 1025 Balance 1110 311 265 71 Weight 50.802 kg Intake: IV Fluids 1600 951 568 NS 600 951 568 TPN/PPN 907 896 Oral 560 960 440 200 Output: Urine 550 [place] 1050 1050 1650 1025 Other: Estimated Void Medium Large Date of Last Bowel unknown Movement # Bowel Movements 0 0 0 # Voids 1 0 1 ADLs: Meal Record Start: 01/13/19 11: 57 Freq: DAILY@0900,1400,1800 Status: Active Protocol: Created 01/13/19 11:57 System (Rec: 01/13/19 11:57 System MED-C04) Document 01/13/19 14:00 [id number] (Rec: 01/13/19 16:45 [id number] MED-C09) Document 01/14/19 09:00 [id number] (Rec: 01/14/19 09:56 [id number] MED-C11) Document 01/14/19 13:48 [id number] (Rec: 01/14/19 13:49 [id number] MED-C11) Document 01/14/19 18:00 [id number] (Rec: 01/14/19 23:53 [id number] MED-C15) Document 01/15/19 09:00 [id number] (Rec: 01/15/19 09:20 [id number] MED-C09) Document 01/15/19 14:00 [id number] (Rec: 01/15/19 14:33 [id number] MED-C11) Document 01/15/19 18:00 [id number] (Rec: 01/15/19 21:01 [id number] MED-C14) Document 01/16/19 09:00 [id number] (Rec: 01/16/19 09:29 [id number] MED-C11) Document 01/16/19 13:55 [id number] (Rec: 01/16/19 13:56 [id number] MED-C11) Intake and Output Start: 01/13/19 07: 24 Freq: Status: Active Protocol: Created 01/13/19 07:24 System (Rec: 01/13/19 07:24 System [id number]) Intake and Output Start: 01/13/19 11: 57 Freq: DAILY@0600,1400,2200 Status: Active Protocol: Created 01/13/19 11:57 System (Rec: 01/13/19 11:57 System MED-C04) Document 01/13/19 14:00 [id number] (Rec: 01/13/19 16:46 [id number] MED-C09) Document 01/13/19 20:18 [id number] (Rec: 01/13/19 20:19 [id number] MED-C14) Document 01/14/19 05:45 [id number] (Rec: 01/14/19 05:46 [id number] MED-C09) Document 01/14/19 13:49 [id number] (Rec: 01/14/19 13:49 [id number] MED-C11) Document 01/14/19 22:00 [id number] (Rec: 01/14/19 23:57 [id number] MED-C15) Document 01/15/19 06:00 [id number] (Rec: 01/15/19 06:07 [id number] MED-C15) Document 01/15/19 14:00 [id number] (Rec: 01/15/19 14:33 [id number] MED-C11) Document 01/15/19 22:00 [id number] (Rec: 01/15/19 23:22 [id number] MED-C14) Document 01/16/19 05:23 [id number] (Rec: 01/16/19 05:24 [id number] MED-C11) Document 01/16/19 13:55 [id number] (Rec: 01/16/19 13:56 [id number] MED-C11) Eyes: No Scleral Icterus Ears/Nose/Mouth/Throat: NL Teeth, Lips, Gums Neck: NL Appearance and Movements; NL JVP Cardiovascular: NL Sounds; No Murmurs; No JVD Abdominal: NL Sounds; No Tenderness; No Distention Extremities: No Edema, No Clubbing, Cyanosis Neurological: Alert and Oriented x 3, - - quiet voice, no tremor - Assessment Assessment: 74yo female with Parkinson's disease presents with failure to thrive, dehydration and hypercalcemia. - Plan Consult Plan (MU): Palliative Plan: Long discussion with pt, her Matthew(HCP-on chart) and their son. They are frustrated pt keeps ending up in hospital. She is home for a few days then is unable to eat/drink gets dehydrated and ends up in ER. This has been happening for the last 4 months, prior to illness pt was able to go out to dinner. Her symptoms may be related to hypercalcemia and pt/family is willing to try outpatient medication. She was unable to complete her course of sensipar. would like to be able to give infusions at home and wants advice about what specialists to see next. We discussed out patient palliative care, brochure was given, but he doesn't feel it will help. We also discussed hospice , brochure was given but they are not willing to "give up" yet and pt doesn't want to pursue comfort care. He wants to care for pt at home. Discussed [facility] with and son since pt fell asleep, will follow up tomorrow with them. Hospice eligibility pablito be related to failure to thrive. KPS 40% PPS 50% - Time On Unit Date of Evaluation: 01/16/19 Hospice Consult Time in: 17:00 Hospice Consult Time Out: 18:30 Hospice Consult Time Total: 90 > 50% of Time Spend In Counseling or Coordinating Care: Yes
[2019-01-16] MEDS: Mirtazapine TAB* 15 MG PO SCH (21:10)
[2019-01-16] MEDS: Ondansetron INJ* 2 MG/ML VIAL IV PRN (21:11)
[2019-01-16] MEDS ORDERED: Scopolamine PATCH Remove* 1 NOTE MISC PATCH OFF ONE (22:00)
[2019-01-16] MEDS: Scopolamine 1.5 mg* PATCH TRANSDERM SCH (23:18)
[2019-01-17 06:56] LABS: Corrected Retic Count 0.2 % (0.5-1.5); Hematocrit for Retic CNT 24 % (35-47); Immature Retic Fraction 0.19; RBC Retic Count 2.73 10^6/uL (3.70-4.87)
[2019-01-17 06:59] LABS: BUN/Creatinine Ratio 38.6 (8-20); Blood Urea Nitrogen 22 mg/dL (6-24); CO2 Carbon Dioxide 24 mmol/L (22-32); Calcium 9.1 mg/dL (8.6-10.3); EGFR African American 126.2 (>60); EGFR Non-African American 104.3 (>60); Glucose 81 mg/dL (70-100); Potassium 3.9 mmol/L (3.5-5.0)
[2019-01-17 07:00] LABS: Anion Gap 1 mmol/L (2-11); Chloride 121 mmol/L (101-111); Sodium 146 mmol/L (135-145)
[2019-01-17 07:01] LABS: % Iron Saturation 28 % (15-55); Iron 49 ug/dL (50-212); LDH 142 U/L (140-271); Total Iron Binding Capacity 174 mcg/dL (250-450); Transferrin 124 mg/dL (203-362)
[2019-01-17 07:20] LABS: Ferritin 398.8 ng/mL (11-307)
[2019-01-17] MEDS: SPIRIVA Respimat* (tiotropium) 2.5 mcg/inh Inhaler INH SCH (07:44)
[2019-01-17] MEDS: Mometasone/Formoter 200/5 MDI INH SCH ×2 (07:44→19:13)
[2019-01-17] MEDS: lamoTRIgine TAB(*) 100 MG PO SCH ×3 (09:04→21:18)
[2019-01-17] MEDS: Sertraline* 100 MG TAB PO SCH (09:04)
[2019-01-17] MEDS: Pantoprazole IV* 40 MG IV SCH (09:04)
[2019-01-17] MEDS: clonazePAM TAB(*) 0.5 MG PO SCH ×3 (09:07→21:14)
[2019-01-17] MEDS: Cyanocobalamin TAB* 500 MCG PO SCH ×2 (09:07→21:49)
[2019-01-17] MEDS: Propranolol TAB* 10 MG PO SCH (09:07)
[2019-01-17] MEDS: CMCS: Lithium Carbonate ER (NF) 300 MG TAB.ER PO SCH ×3 (09:07→21:16)
[2019-01-17] MEDS: Docusate CAP* 100 MG PO SCH ×2 (09:07→21:49)
[2019-01-17] MEDS: Polyethylene Glycol 3350* 17 GM PACKET PO SCH ×2 (09:09→21:35)
[2019-01-17] MEDS: Carbidopa/Levodop 25/100 MG TAB(*) PO SCH ×3 (09:57→21:26)
[2019-01-17 10:50] LABS: Magnesium 1.7 mg/dL (1.9-2.7)
[2019-01-17] MEDS: Morphine INJ* 2 MG/ML 1 ML SYRINGE (TWO MG - NEW SYRINGE VERSION) IV PRN ×2 (11:22→16:20)
--- NOTE | 2019-01-17 12:30 | PN ---
Progress Note - Progress Note Date of Service: 01/17/19 Note: Surgery Progress Note Today patient is about the same. She still is profoundly weak and is not taking much oral food although she has been tolerating a little. She has no appetite. Her calcium was normal today (9.1). I had a long discussion with patient and her , Matthew. I advised him that her acute 4-5 month cognitive and medical decline is difficult to be explained by mild hypercalcemia alone (calcium levels intermittently 11-12). Although her records show admissions in the past for weakness and failure to thrive ( dating back to 2015), he describes her cognition to have worsened (she can no longer read) and that her main issues have been loss of appetite and constipation (the latter has improved with lactulose) and chronic UTIs (she has had for several years). Urine cx from this hospitalization have also been positive for Klebsiella. She has been seen by neurology on previous visits and has a complex psychiatric and neurologic history including depression, biploar disorder and a diagnosis of Parkinsons that may also be a contributing factor to her anorexia. I have explained to the that a parathyroidectomy may be a more durable solution for her mild hypercalcemia, but I do not know if it will reverse the severe decline she has been experiencing, especially since her general symptoms appear to persist even when her calcium levels have normalized. Her says she only has "4-6 good days" after hospitalization , meaning that she takes a minimal amount of PO but subsequently takes in less food, no oral medications (including her Sinemet) and then needs to be hospitalized. Patient's at this point prefers medical management. He does not think she would tolerate surgery well given how frail she is. Although parathyroidectomy is a low risk procedure, she would require a potentially lengthy 4 gland exploration. Her calcium levels have normalized and Dr. Mark is planning on IV zoledronic acid on this admission. I have told the patient's that if they wish to pursue surgery I will be happy to see them and schedule surgery as an outpatient. I have also reviewed her imaging with Radiology, including recent abdominal CT scans, in light of her anemia. The images are limited by lack of oral contrast and she has rectal, gaseous distention but no clear thick walled colon. She reportedly had a colonoscopy 2 years ago. However, in light of her anorexia, fatigue, weight loss, abdominal pain and anemia an occult malignancy work up would also be reasonable. I discussed this with Dr. Llamas. Surgery will sign off, please feel free to call me with any further questions
[2019-01-17] MEDS: Cinacalcet TAB* 30 MG PO SCH (13:00)
[2019-01-17] MEDS: Lactulose* 15 ML UDC PO SCH ×3 (13:03→22:55)
[2019-01-17] MEDS: cefTRIAXone(*) 1 GM in NS 0.9% 50 ML* 50 ML IVPB SCH (13:16)
--- NOTE | 2019-01-17 14:27 | PN ---
Subjective Date of Service: 01/17/19 Interval History: Patient had RLQ abdominal pain this AM. This improved w/ morphine. She has no appetite, but denies nausea. Had a bit of sherbet today. Had long discussion with Dr. Pastor, and patient's . We are looking into transfer to another hospital. Family History: Unchanged from Admission Social History: Unchanged from Admission Past Medical History: Unchanged from Admission Objective Active Medications: Acetaminophen (Tylenol Tab*) 650 mg PO Q8H PRN PRN Reason: PAIN - MODERATE Carbidopa/Levodopa (Sinemet 25/100 Tab(*)) 3 tab PO 0830,1300,1830 [facility] Last Admin: 01/17/19 13:17 Dose: Not Given Cinacalcet (Sensipar Tab*) 30 mg PO BID WITH MEALS [facility] Last Admin: 01/17/19 13:00 Dose: 30 mg Clonazepam (Klonopin Tab(*)) 0.5 mg PO TID [facility] Last Admin: 01/17/19 09:07 Dose: 0.5 mg Cyanocobalamin (Vitamin B12 Tab*) 500 mcg PO BID [facility] Last Admin: 01/17/19 09:07 Dose: 500 mcg Docusate Sodium (Colace Cap*) 100 mg PO BID [facility] Last Admin: 01/17/19 09:07 Dose: 100 mg Heparin Sodium (Porcine) (Heparin Flush Picc/Ml/Cvc(*)) 1 - 3 ml FLUSH 0600, 1800 [facility]; Protocol Last Admin: 01/17/19 06:26 Dose: 1 ml Ceftriaxone Sodium 1 gm/ (Sodium Chloride) 50 mls @ 100 mls/hr IVPB Q24H [facility] Last Admin: 01/17/19 13:16 Dose: 100 mls/hr Dextrose 500 ml/ Amino Acids 850 ml/ Sterile Water 150 ml/Fat Emulsion Intravenous 250 ml/ Sodium Chloride 80 meq/Potassium Chloride 50 meq/Potassium Phosphate 25 mmole/Magnesium Sulfate 10 meq/Multivitamins 10 ml/ Trace Metals 1 ml/ Nutrition ( Parenteral) 1,816.7963 mls @ 75.769 mls/hr CENTR 1700 [facility]; Protocol Lactulose (Lactulose*) 15 ml PO TID [facility] Last Admin: 01/17/19 13:17 Dose: Not Given Lamotrigine (Lamictal Tab(*)) 100 mg PO BID [facility] Last Admin: 01/17/19 13:18 Dose: Not Given [place] Carbonate ([place] Carbonate Er (Nf)) 300 mg PO BID [facility]; Protocol Last Admin: 01/17/19 13:18 Dose: Not Given Mirtazapine (Remeron Tab*) 15 mg PO BEDTIME [facility] Last Admin: 01/16/19 21:10 Dose: 15 mg Mometasone Furoate/Formoterol Fumar (Dulera 200/5 Mdi*) 2 puff INH BID [facility]; Protocol Last Admin: 01/17/19 07:44 Dose: Not Given Morphine Sulfate (Morphine Inj (Syringe))*) 2 mg IV Q3H PRN PRN Reason: PAIN - MODERATE Last Admin: 01/17/19 11:22 Dose: 2 mg Ondansetron HCl (Zofran Inj*) 4 mg IV Q6H PRN PRN Reason: NAUSEA Last Admin: 01/16/19 21:11 Dose: 4 mg Pantoprazole Sodium (Protonix Iv*) 40 mg IV DAILY [facility] Last Admin: 01/17/19 09:04 Dose: 40 mg Polyethylene Glycol/Electrolytes (Miralax*) 17 gm PO BID [facility] Last Admin: 01/17/19 09:09 Dose: Not Given Propranolol HCl (Inderal Tab*) 10 mg PO QAM [facility] Last Admin: 01/17/19 09:07 Dose: 10 mg Scopolamine (Transderm-Scop 1.5 Mg Patch*) 1 patch TRANSDERM Q72H [facility] Last Admin: 01/16/19 23:18 Dose: 1 patch Sertraline HCl (Zoloft*) 150 mg PO QAM [facility] Last Admin: 01/17/19 09:04 Dose: 150 mg Tiotropium [place] (Spiriva Respimat 2.5 Mcg) 2 puff INH DAILY [facility] Last Admin: 01/17/19 07:44 Dose: Not Given Vital Signs - 8 hr 01/17/19 01/17/19 01/17/19 07:09 08:00 09:00 Temperature 36.7 C Pulse Rate 70 Respiratory 18 16 Rate Blood Pressure 118/72 (mmHg) O2 Sat by Pulse 100 100 Oximetry 01/17/19 01/17/19 01/17/19 09:07 11:10 11:22 Temperature 36.7 C Pulse Rate 84 Respiratory 18 18 24 Rate Blood Pressure 112/68 (mmHg) O2 Sat by Pulse 100 Oximetry Oxygen Devices in Use Now: Nasal Cannula Appearance: frail, cachectic, quiet voice Eyes: No Scleral Icterus Respiratory: Symmetrical Chest Expansion and Respiratory Effort, Clear to Auscultation Cardiovascular: NL Sounds; No Murmurs; No JVD, RRR Neurological: - - answering questions appropriately Lines/Tubes/Other Access: Clean, Dry and Intact Peripheral IV Nutrition: Taking PO's, TPN - Nutrition: Malnutrition Diagnosis/Plan Malnutrition Assessment by Registered Dietitian: Malnutrition Assessment Clinical Characteristics Chronic,Severe Malnutrition Assessment: Muscle Wasting - Temporal muscle (moderate) Criteria Inadequate Oral Intake - Pt reports having poor appetite, consistent w/ visits x1 mo. - Anticipate meeting <75% nutrient needs >1 mo. ( severe) Unintentional Weight Loss - Current wt 112lb, prev wt on record 126lb (11/2018) - 11.11% loss x1 mo (severe) Malnutrition Assessment: Nutritional Supplementals/Nourishments - Pt not Interventions amenable to scheduled nourishments/supplements at this time; will continue to monitor intakes and offer again as indicated. GI Related - Recommend continuing antiemetics PRN and standing bowel meds; will monitor GI s/ sx for impact on intake. Malnutrition Assessment: Goals 1) Pt will tolerate least restrictive dietary textures w/o difficulty chewing/swallowing or exac of GI s/sx 2) Adequate po intake to replete lean body mass , support wt gain as desired and hydration status 3) Improve fluid/electrolyte balance w/ adequate po intake and medical mgmt of hypercalcemia 4) Improve bowel regularity w/ adequate po intake and standing bowel meds w/o exac of constipation/development of diarrhea Result Diagrams: 01/16/19 05:35 01/17/19 06:20 Assess/Plan/Problems-Billing Assessment: Ms. Nelson is a 74 y.o female with a past medical history of hypercalcemia related to lithium use, hyperparathyroidism, Parkinson, bipolar who presented with nausea, vomiting and not tolerating medications. - Patient Problems (1) Hyperparathyroidism due to lithium therapy Current Visit: Yes Status: Acute Priority: High Code(s): E21.1 - SECONDARY HYPERPARATHYROIDISM, NOT ELSEWHERE CLASSIFIED SNOMED Code(s): 668210213 Comment: - Hypercalcemia not severe, may explain some symptoms - Dr. Pastor would consider outpatient surgery - Stopped Sensipar, gave 1 dose Zometa (2) UTI (urinary tract infection) Current Visit: Yes Status: Acute Priority: Medium Comment: - Likely related to chronic espinoza placement - urine culture with Klebsiella pneumoniae- sensitive to ceftriaxone - Will have 5 days ceftriaxone (3) FTT (failure to thrive) in adult Current Visit: Yes Status: Acute Priority: Medium Comment: - Nutritional consult - recommended ensure clear - patient refused - Suspect that this is FTT, will have palliative care consult today - Responding well to TPN. - Will try to add marinol, and cut down other medications - Na high, Cl high, reduced NaCl in TPN. Phos low, increased K-phos, decreased KCl (4) Anemia Current Visit: Yes Status: Chronic Priority: Medium Code(s): D64.9 - ANEMIA, UNSPECIFIED SNOMED Code(s): 505097858 Comment: -Reviewed EGD this month, colonoscopy 2 years ago -Needs FOBT -Will have iron, other anemia workup on AM labs (5) DVT prophylaxis Current Visit: Yes Status: Acute Priority: Low Code(s): ZLY3789 - SNOMED Code(s): 667690950 Comment: - SCD's (6) Bipolar disorder Current Visit: No Status: Chronic Priority: High Comment: - Discussed with , difficult to find alternative to lithium - Continue [place], Lamotrigine, clonazepam, mirtazapine, sertraline - tolerating some meds Status and Disposition: inpatient, will discuss transfer to [place]
[2019-01-17] MEDS ORDERED: Zoledronic Acid* 4 MG in NS 0.9% 100 ML* 95 ML IVPB ONE (15:00)
[2019-01-17] MEDS ORDERED: NS 0.9% 100 ML* 100 ML ONE (15:27)
[2019-01-17] MEDS: Dronabinol CAP* 2.5 MG PO SCH ×2 (15:34→21:21)
[2019-01-17] MEDS ORDERED: TPN* 24 HR with Dextrose 50% Water* 500 ML, Amino Acid Infusion 10%* 850 ML, Sterile Wa... CENTR SCH ×22 (17:00)
[2019-01-17] MEDS: Mirtazapine TAB* 15 MG PO SCH (21:19)
[2019-01-18 07:51] LABS: Prealbumin 22 mg/dL (18-38)
[2019-01-18] MEDS: Mometasone/Formoter 200/5 MDI INH SCH ×2 (08:48→19:30)
[2019-01-18] MEDS: SPIRIVA Respimat* (tiotropium) 2.5 mcg/inh Inhaler INH SCH (08:48)
[2019-01-18 09:18] LABS: ALT < 3 U/L (7-52); AST 8 U/L (13-39); Albumin/Globulin Ratio 2.1 (1-3); Alkaline Phosphatase 127 U/L (34-104); BUN/Creatinine Ratio 43.9 (8-20); Blood Urea Nitrogen 25 mg/dL (6-24); CO2 Carbon Dioxide 20 mmol/L (22-32); Calcium 9.2 mg/dL (8.6-10.3); Cholesterol 129 mg/dL; EGFR African American 126.2 (>60); EGFR Non-African American 104.3 (>60); Globulin 1.4 g/dL (2-4); Glucose 114 mg/dL (70-100); Magnesium 1.6 mg/dL (1.9-2.7); Phosphorus 1.8 mg/dL (2.5-5.0); Potassium 4.3 mmol/L (3.5-5.0); Sodium 144 mmol/L (135-145); Total Protein 4.4 g/dL (6.4-8.9); Triglycerides 87 mg/dL
[2019-01-18 09:28] LABS: Anion Gap 4 mmol/L (2-11); Chloride 120 mmol/L (101-111)
[2019-01-18] MEDS: Pantoprazole IV* 40 MG IV SCH (10:06)
[2019-01-18] MEDS: Lactulose* 15 ML UDC PO SCH ×3 (10:06→21:04)
[2019-01-18] MEDS: clonazePAM TAB(*) 0.5 MG PO SCH ×3 (10:07→20:59)
[2019-01-18] MEDS: CMCS: Lithium Carbonate ER (NF) 300 MG TAB.ER PO SCH (10:13)
[2019-01-18] MEDS: Polyethylene Glycol 3350* 17 GM PACKET PO SCH ×2 (10:16→20:50)
[2019-01-18] MEDS: Carbidopa/Levodop 25/100 MG TAB(*) PO SCH ×3 (10:16→18:11)
[2019-01-18] MEDS: Cyanocobalamin TAB* 500 MCG PO SCH ×3 (10:25→21:08)
[2019-01-18] MEDS: Docusate CAP* 100 MG PO SCH ×3 (10:25→21:10)
[2019-01-18] MEDS: lamoTRIgine TAB(*) 100 MG PO SCH ×2 (10:25→21:01)
[2019-01-18] MEDS: Dronabinol CAP* 2.5 MG PO SCH ×3 (10:25→21:13)
[2019-01-18] MEDS: Sertraline* 100 MG TAB PO SCH (10:25)
[2019-01-18] MEDS: Morphine INJ* 2 MG/ML 1 ML SYRINGE (TWO MG - NEW SYRINGE VERSION) IV PRN (11:38)
[2019-01-18] MEDS: cefTRIAXone(*) 1 GM in NS 0.9% 50 ML* 50 ML IVPB SCH (11:39)
[2019-01-18] MEDS ORDERED: Phytonadione SUBCUT/IM Adult* 10 MG/ML AMP (IM or SQ not preferred route) SUBCUT ONE (12:30)
--- NOTE | 2019-01-18 14:15 | PN ---
NEUROLOGY FOLLOWUP NOTE: DATE OF SERVICE: 01/19/10 HISTORY OF PRESENT ILLNESS: Cyndi Nelson is a 74-year-old woman who is known to me for years of outpatient care. Today, I came in to visit her and after discussion with hospitalist team and on outpatient basis, reviewed her chart and provided some input into care. I will refer to my outpatient notes for extensive details regarding her past medical history of tremor starting at age 22 with multiple possible etiologies with role of psychiatric medication being raised, underlying neurologic disorder such as Parkinson's disease and essential tremor, previous treatment trials with carbidopa/levodopa, previous cessation of lithium with complete resolution of tremor in 2010, and more recently a positive DaTscan at [facility] in 2017 consistent with Parkinson's disease with decreased uptake in the left putamen and right caudate resulting in her starting on carbidopa/levodopa with high dose under the guidance of Dr. Reinaldo Perez. She has had a complicated course and has been noted to have resting tremor in the right upper extremity with decreased facial expression, hypophonia, increased tone, decreased balance. Some of her Parkinsonian features fluctuated and there was question on how much was contributed by her medications. She also has had in the past transient declines, becoming more forgetful, decreased memory and balance in the setting of stress and loss. More recently, she has had profound decline in the last year. She prior to going to [place] for the winter this year was noted to have a small right frontal hemorrhage in the setting of fall with significant cognitive decline. However, the bleed was so tiny, it was not thought to explain these symptoms. Her cognitive decline improved, but then worsened when she got back from [place] for unclear reasons and she went on to have improvement for a period of time followed by decline and repeat hospitalizations. Her course has been marked by profound decrease in appetite and hydration resulting in failure to thrive. She has been maintained on significant number of psychiatric medications in the setting of profound mental health history, which had been fragile in the past. In part of her workup, she was found to have hyperparathyroidism with abnormal calcium levels with question of role of lithium. She has been followed with Endocrine and consideration has taken place regarding surgery versus conservative therapy for hypercalcemia, which is being done at this time. She was also noted to have low normal B12, which has been supplemented. She was worked up for paraneoplastic syndrome with a serum panel sent to [facility]. Her 25-hydroxyvitamin D level was within normal limits and thyroid function was normal. There was no monoclonal gammopathy noted. Her lithium was within normal limits repeatedly with a normal ammonia level. She has been admitted to hospital multiple times and does usually improve with hydration and nutrition, but then declines when discharged. I refer to her current inpatient notes for her extensive workup. On today's visit, Cyndi immediately recognized who I was, but frequently mumbled making her history difficult to obtain. Her by phone indicated that she is not recovering the way she was prior. PHYSICAL EXAMINATION: On examination today, her temperature was 97.2 degrees Fahrenheit with a pulse of 72 and regular, respiratory rate 20, saturation 100% , blood pressure 107/42. She had a regular cardiac rhythm. Her lungs were clear to auscultation. She was profoundly thin. She had have full extraocular movements and was blinking to threat bilaterally. Her facial expression was symmetric, but diminished. She had good tone on today's visit. No resting tremor. Good rapid alternating movements. She was able to give me good proximal and distal strength in her limbs, symmetric. Her reflexes were 2+ in the upper extremities, 2+ at the knees, 1+ at the ankles. Toes were flexor response. She was slow to move, but was able to use her truncal strength to pull herself out of bed to an upright position. DIAGNOSTIC STUDIES/LAB DATA: Notes were reviewed as well as laboratory tests and scans. She is currently being treated for a Klebsiella pneumoniae UTI. Her treatment for hyperparathyroidism with elevated calcium has been switched. She is receiving TPN for failure to thrive and chronic anemia is noted. She continues on her psychiatric medications for her bipolar disorder. IMPRESSION: A 74-year-old woman with complex neurologic history of tremor as well as significant mental health problems with cognitive decline followed by physical decline after moving back from [place] to [place], who was found to have elevated calcium levels and hyperparathyroidism. One of her major problems has been failure to thrive with profound decrease in nutrition and hydration with recent protein level of 4.4, albumin 3.0 and globulin 1.4. She is currently receiving TPN and Dr. Llamas will be addressing further approaches for nutrition as was questioning. Certainly, urinary tract infection may contribute to some of the clinical pictures and she is currently being treated. Of concern are her extensive medications for psychiatry and what role they may be playing. She does have a fragile baseline; however, at this point her clinical function is profoundly low. I talked with her at length and once again suggested that we try going down on lithium. He agrees and I spoke with Dr. Llamas who will proceed with this change. Each medication needs to be looked out for potential benefit and side effect and minimization of medications needs to take place. She is currently on scopolamine and Dr. Llamas is not clear there has been a significant difference with this medication. This could be contributing to some of anticholinergic symptoms. He will be considering stopping this medication. We also spoke about other differential diagnosis. She has had MRI of the brain as part of her workup earlier on, which did not show a new lesion. I would suggest getting an EEG to look at her underlying brain wave activity, make sure there is no subclinical seizures contributing. We spoke about the previous start of workup for paraneoplastic cause with serum antibodies. Currently, her INR is elevated; however, if this could be normalized, a lumbar puncture looking for inflammation and looking at a paraneoplastic/autoimmune encephalitis at [facility] may be helpful. This is an extremely complex case resulting in multiple admissions. Transfer to higher level of care for review of case and looking for any further input is being considered. She has been seen as an outpatient at [facility] by Dr. Reinaldo Perez, and [facility]'s excellent neurology input could be of significant help. All of the above was discussed with Dr. Ramses Llamas and with the patient and . I will defer to the inpatient team to this workup, and they should feel free to call for a neurology consult if further input is needed on an inpatient basis. TIME SPENT: Over an hour and a half was spent in patient care, over 50% was spent in education and counseling re: differential diagnosis, and options for care and work up. [id number]/[facility] #: [id number] NEMO
--- NOTE | 2019-01-18 16:01 | PN ---
Subjective Date of Service: 01/18/19 Interval History: Patient not eating, had chocolate milk and water today. She has no appetite. She does have intermittent abdominal pain, used morphine once so far today. Dr. Sharp visited. She advised lowering psychiatric medications, including lithium. Also advised LP, paraneoplastic workup. Family History: Unchanged from Admission Social History: Unchanged from Admission Past Medical History: Unchanged from Admission Objective Active Medications: Acetaminophen (Tylenol Tab*) 650 mg PO Q8H PRN PRN Reason: PAIN - MODERATE Carbidopa/Levodopa (Sinemet 25/100 Tab(*)) 3 tab PO 0830,1300,1830 [facility] Last Admin: 01/18/19 14:34 Dose: Not Given Clonazepam (Klonopin Tab(*)) 0.5 mg PO TID [facility] Last Admin: 01/18/19 14:55 Dose: 0.5 mg Cyanocobalamin (Vitamin B12 Tab*) 500 mcg PO BID [facility] Last Admin: 01/18/19 10:25 Dose: 500 mcg Docusate Sodium (Colace Cap*) 100 mg PO BID [facility] Last Admin: 01/18/19 10:25 Dose: 100 mg Dronabinol (Marinol Cap*) 2.5 mg PO TID [facility] Last Admin: 01/18/19 14:32 Dose: Not Given Heparin Sodium (Porcine) (Heparin Flush Picc/Ml/Cvc(*)) 1 - 3 ml FLUSH 0600, 1800 [facility]; Protocol Last Admin: 01/18/19 13:18 Dose: 1 ml Ceftriaxone Sodium 1 gm/ (Sodium Chloride) 50 mls @ 100 mls/hr IVPB Q24H [facility] Last Admin: 01/18/19 11:39 Dose: 100 mls/hr Dextrose 500 ml/ Amino Acids 850 ml/ Sterile Water 150 ml/Fat Emulsion Intravenous 250 ml/ Sodium Chloride 80 meq/Potassium Chloride 50 meq/Potassium Phosphate 25 mmole/Magnesium Sulfate 10 meq/Multivitamins 10 ml/ Trace Metals 1 ml/ Nutrition ( Parenteral) 1,816.7963 mls @ 75.769 mls/hr CENTR 1700 [facility]; Protocol Stop: 01/18/19 16:59 Last Admin: 01/17/19 18:19 Dose: 75.769 mls/hr Dextrose 500 ml/ Amino Acids 850 ml/ Sterile Water 150 ml/Fat Emulsion Intravenous 250 ml/ Sodium Chloride 80 meq/Potassium Chloride 40 meq/Potassium Phosphate 30 mmole/Magnesium Sulfate 20 meq/Multivitamins 10 ml/ Trace Metals 1 ml/ Nutrition ( Parenteral) 1,815.9261 mls @ 75.664 mls/hr CENTR 1700 [facility]; Protocol Lactulose (Lactulose*) 15 ml PO TID [facility] Last Admin: 01/18/19 14:36 Dose: Not Given Lamotrigine (Lamictal Tab(*)) 100 mg PO BID [facility] Last Admin: 01/18/19 10:25 Dose: 100 mg [place] Carbonate ([place] Carbonate Er Tab*) 450 mg PO BEDTIME [facility] Mirtazapine (Remeron Tab*) 15 mg PO BEDTIME [facility] Last Admin: 01/17/19 21:19 Dose: 15 mg Mometasone Furoate/Formoterol Fumar (Dulera 200/5 Mdi*) 2 puff INH BID [facility]; Protocol Last Admin: 01/18/19 08:48 Dose: 2 puff Morphine Sulfate (Morphine Inj (Syringe))*) 2 mg IV Q3H PRN PRN Reason: PAIN - MODERATE Last Admin: 01/18/19 11:38 Dose: 2 mg Ondansetron HCl (Zofran Inj*) 4 mg IV Q6H PRN PRN Reason: NAUSEA Last Admin: 01/16/19 21:11 Dose: 4 mg Pantoprazole Sodium (Protonix Iv*) 40 mg IV DAILY [facility] Last Admin: 01/18/19 10:06 Dose: 40 mg Polyethylene Glycol/Electrolytes (Miralax*) 17 gm PO BID [facility] Last Admin: 01/18/19 10:16 Dose: 17 gm Sertraline HCl (Zoloft*) 150 mg PO QAM [facility] Last Admin: 01/18/19 10:25 Dose: 150 mg Tiotropium [place] (Spiriva Respimat 2.5 Mcg) 2 puff INH DAILY [facility] Last Admin: 01/18/19 08:48 Dose: 2 puff Vital Signs - 8 hr 01/18/19 01/18/19 01/18/19 10:25 11:38 12:00 Temperature 36.2 C Pulse Rate 72 Respiratory 17 16 20 Rate Blood Pressure 107/42 (mmHg) O2 Sat by Pulse 100 Oximetry 01/18/19 01/18/19 01/18/19 12:07 12:15 12:25 Temperature Pulse Rate Respiratory 19 19 Rate Blood Pressure 106/62 (mmHg) O2 Sat by Pulse Oximetry Oxygen Devices in Use Now: Nasal Cannula Appearance: alert, no distress, sitting in chair Ears/Nose/Mouth/Throat: Clear Oropharnyx Neck: NL Appearance and Movements; NL JVP Respiratory: Clear to Auscultation, Clear to Percussion Cardiovascular: NL Sounds; No Murmurs; No JVD, RRR Abdominal: NL Sounds; No Tenderness; No Distention, No Hepatosplenomegaly Neurological: - - voice stronger than yesterday, answering questions better Lines/Tubes/Other Access: Clean, Dry and Intact Peripheral IV, Clean, Dry and Intact PICC Line Nutrition: Taking PO's, TPN - Nutrition: Malnutrition Diagnosis/Plan Malnutrition Assessment by Registered Dietitian: Malnutrition Assessment Clinical Characteristics Chronic,Severe Malnutrition Assessment: Muscle Wasting - Temporal muscle (moderate) Criteria Inadequate Oral Intake - Pt reports having poor appetite, consistent w/ visits x1 mo. - Anticipate meeting <75% nutrient needs >1 mo. ( severe) Unintentional Weight Loss - Current wt 112lb, prev wt on record 126lb (11/2018) - 11.11% loss x1 mo (severe) Malnutrition Assessment: Nutritional Supplementals/Nourishments - Pt not Interventions amenable to scheduled nourishments/supplements at this time; will continue to monitor intakes and offer again as indicated. GI Related - Recommend continuing antiemetics PRN and standing bowel meds; will monitor GI s/ sx for impact on intake. Malnutrition Assessment: Goals 1) Pt will tolerate least restrictive dietary textures w/o difficulty chewing/swallowing or exac of GI s/sx 2) Adequate po intake to replete lean body mass , support wt gain as desired and hydration status 3) Improve fluid/electrolyte balance w/ adequate po intake and medical mgmt of hypercalcemia 4) Improve bowel regularity w/ adequate po intake and standing bowel meds w/o exac of constipation/development of diarrhea Result Diagrams: 01/16/19 05:35 01/18/19 06:52 Microbiology and Other Data: Microbiology 01/13/19 19:15 Urine Urine Culture - Final Klebsiella Pneumoniae 01/13/19 08:17 Blood Venous Aerobic Blood Culture - Final 01/13/19 08:17 Blood Venous Anaerobic Blood Culture - Final No Growth Day 5 No Growth Day 5 01/13/19 08:04 Blood Venous Aerobic Blood Culture - Final 01/13/19 08:04 Blood Venous Anaerobic Blood Culture - Final No Growth Day 5 No Growth Day 5 Assess/Plan/Problems-Billing Assessment: Ms. Nelson is a 74 y.o female with a past medical history of hypercalcemia related to lithium use, hyperparathyroidism, Parkinson, bipolar who presented with nausea, vomiting and not tolerating medications. - Patient Problems (1) Hyperparathyroidism due to lithium therapy Current Visit: Yes Status: Acute Priority: High Code(s): E21.1 - SECONDARY HYPERPARATHYROIDISM, NOT ELSEWHERE CLASSIFIED SNOMED Code(s): 458524185 Comment: - Hypercalcemia resolved at this point - Dr. Pastor would consider outpatient surgery, 3-1/2 gland parathyroidectomy (2) UTI (urinary tract infection) Current Visit: Yes Status: Acute Priority: Medium Comment: - Likely related to chronic espinoza placement - urine culture with Klebsiella pneumoniae- sensitive to ceftriaxone - on day 3 ceftriaxone (3) FTT (failure to thrive) in adult Current Visit: Yes Status: Acute Priority: Medium Comment: - Suspect that this is FTT, will have palliative care consult today - Responding well to TPN. - Added marinol, and cut down on polypharmacy, stopped inderal, scopolamine - Phos improved, increased K-phos, decreased KCl in TPN - asking for transfer to [facility]/[place]. (4) Anemia Current Visit: Yes Status: Chronic Priority: Medium Code(s): D64.9 - ANEMIA, UNSPECIFIED SNOMED Code(s): 668454604 Comment: -Reviewed EGD this month, colonoscopy 2 years ago -Needs FOBT -workup shows anemia of chronic disease (5) DVT prophylaxis Current Visit: Yes Status: Acute Priority: Low Code(s): EWX2045 - SNOMED Code(s): 284809697 Comment: - SCD's (6) Bipolar disorder Current Visit: No Status: Chronic Priority: High Comment: - Discussed with yesterday, difficult to find alternative to lithium - decreased [place],continue Lamotrigine, clonazepam, mirtazapine, sertraline (7) Coagulation defect Current Visit: Yes Status: Acute Priority: Medium Comment: -Will need LP tomorrow or Sunday. -Gave VitK due to high INR, will recheck in AM Status and Disposition: inpatient, transfer to [place] is pending
[2019-01-18 17:43] LABS: Activated Partial Thrombo Time 32.8 seconds (26.0-38.0); INR 1.19 (0.82-1.09)
[2019-01-18] MEDS: TPN* 24 HR with Dextrose 50% Water* 500 ML, Amino Acid Infusion 10%* 850 ML, Sterile Wa... CENTR SCH ×11 (18:10)
[2019-01-18] MEDS: Mirtazapine TAB* 15 MG PO SCH (21:03)
[2019-01-18] MEDS: Lithium Carbonate ER* 450 MG TAB.ER PO SCH (21:05)
[2019-01-19] MEDS: Mometasone/Formoter 200/5 MDI INH SCH ×3 (00:07→20:56)
[2019-01-19] MEDS: Morphine INJ* 2 MG/ML 1 ML SYRINGE (TWO MG - NEW SYRINGE VERSION) IV PRN ×4 (03:06→17:31)
[2019-01-19 06:40] LABS: Activated Partial Thrombo Time 32.1 seconds (26.0-38.0); INR 1.12 (0.82-1.09)
[2019-01-19 06:50] LABS: ALT < 3 U/L (7-52); AST 19 U/L (13-39); Albumin/Globulin Ratio 1.9 (1-3); Alkaline Phosphatase 117 U/L (34-104); BUN/Creatinine Ratio 39.7 (8-20); Blood Urea Nitrogen 23 mg/dL (6-24); CO2 Carbon Dioxide 18 mmol/L (22-32); Calcium 8.6 mg/dL (8.6-10.3); Cholesterol 117 mg/dL; EGFR African American 123.6 (>60); EGFR Non-African American 102.2 (>60); Globulin 1.6 g/dL (2-4); Glucose 96 mg/dL (70-100); Magnesium 1.9 mg/dL (1.9-2.7); Phosphorus 2.4 mg/dL (2.5-5.0); Potassium 4.5 mmol/L (3.5-5.0); Sodium 142 mmol/L (135-145); Total Protein 4.6 g/dL (6.4-8.9); Triglycerides 71 mg/dL
[2019-01-19 06:55] LABS: Anion Gap 3 mmol/L (2-11); Chloride 121 mmol/L (101-111)
[2019-01-19 06:57] LABS: Lithium 0.77 mmol/L (0.6-1.2); Prealbumin 20 mg/dL (18-38)
[2019-01-19] MEDS: SPIRIVA Respimat* (tiotropium) 2.5 mcg/inh Inhaler INH SCH (08:12)
[2019-01-19] MEDS: Carbidopa/Levodop 25/100 MG TAB(*) PO SCH ×3 (09:56→17:21)
[2019-01-19] MEDS: Sertraline* 100 MG TAB PO SCH (09:58)
[2019-01-19] MEDS: Cyanocobalamin TAB* 500 MCG PO SCH ×2 (09:58→20:06)
[2019-01-19] MEDS: Docusate CAP* 100 MG PO SCH ×2 (09:58→20:11)
[2019-01-19] MEDS: lamoTRIgine TAB(*) 100 MG PO SCH ×2 (09:58→20:07)
[2019-01-19] MEDS: Polyethylene Glycol 3350* 17 GM PACKET PO SCH ×2 (09:59→20:44)
[2019-01-19] MEDS: Dronabinol CAP* 2.5 MG PO SCH ×4 (09:59→20:59)
[2019-01-19] MEDS: Lactulose* 15 ML UDC PO SCH ×4 (10:00→20:59)
[2019-01-19] MEDS: clonazePAM TAB(*) 0.5 MG PO SCH ×3 (10:07→20:36)
[2019-01-19] MEDS: Pantoprazole IV* 40 MG IV SCH (10:13)
--- NOTE | 2019-01-19 11:36 | PN ---
Subjective Date of Service: 01/19/19 Interval History: Patient has not had BM in several days. She denies nausea, has anorexia. Took her pills with a "slushie" this morning. History obtained from Matthew. He is aware of recommendation from Dr. Sharp to have LP, paraneoplastic workup. He is also willing to have PEG tube placed. Family History: Unchanged from Admission Social History: Unchanged from Admission Past Medical History: Unchanged from Admission Objective Active Medications: Current Meds: Acetaminophen (Tylenol Tab*) 650 mg PO Q8H PRN PRN Reason: PAIN - MODERATE Carbidopa/Levodopa (Sinemet 25/100 Tab(*)) 3 tab PO 0830,1300,1830 [facility] Last Admin: 01/19/19 09:56 Dose: 3 tab Clonazepam (Klonopin Tab(*)) 0.5 mg PO TID [facility] Last Admin: 01/19/19 10:07 Dose: 0.5 mg Cyanocobalamin (Vitamin B12 Tab*) 500 mcg PO BID [facility] Last Admin: 01/19/19 09:58 Dose: 500 mcg Docusate Sodium (Colace Cap*) 100 mg PO BID [facility] Last Admin: 01/19/19 09:58 Dose: 100 mg Dronabinol (Marinol Cap*) 2.5 mg PO TID [facility] Last Admin: 01/19/19 09:59 Dose: Not Given Heparin Sodium (Porcine) (Heparin Flush Picc/Ml/Cvc(*)) 1 - 3 ml FLUSH 0600, 1800 [facility]; Protocol Last Admin: 01/19/19 06:02 Dose: 1 ml Ceftriaxone Sodium 1 gm/ (Sodium Chloride) 50 mls @ 100 mls/hr IVPB Q24H [facility] Stop: 01/20/19 11:59 Last Admin: 01/18/19 11:39 Dose: 100 mls/hr Dextrose 500 ml/ Amino Acids 850 ml/ Sterile Water 150 ml/Fat Emulsion Intravenous 250 ml/ Sodium Chloride 80 meq/Potassium Chloride 40 meq/Potassium Phosphate 30 mmole/Magnesium Sulfate 20 meq/Multivitamins 10 ml/ Trace Metals 1 ml/ Nutrition ( Parenteral) 1,815.9261 mls @ 75.664 mls/hr CENTR 1700 [facility]; Protocol Last Admin: 01/18/19 18:10 Dose: 75.664 mls/hr Lactulose (Lactulose*) 15 ml PO TID [facility] Last Admin: 01/19/19 10:00 Dose: 15 ml Lamotrigine (Lamictal Tab(*)) 100 mg PO BID [facility] Last Admin: 01/19/19 09:58 Dose: 100 mg [place] Carbonate (Ar[place]smith Carbonate Er Tab*) 450 mg PO BEDTIME [facility] Last Admin: 01/18/19 21:05 Dose: 450 mg Mirtazapine (Remeron Tab*) 15 mg PO BEDTIME [facility] Last Admin: 01/18/19 21:03 Dose: 15 mg Mometasone Furoate/Formoterol Fumar (Dulera 200/5 Mdi*) 2 puff INH BID [facility]; Protocol Last Admin: 01/19/19 08:12 Dose: Not Given Morphine Sulfate (Morphine Inj (Syringe))*) 2 mg IV Q3H PRN PRN Reason: PAIN - MODERATE Last Admin: 01/19/19 08:32 Dose: 2 mg Ondansetron HCl (Zofran Inj*) 4 mg IV Q6H PRN PRN Reason: NAUSEA Last Admin: 01/16/19 21:11 Dose: 4 mg Pantoprazole Sodium (Protonix Iv*) 40 mg IV DAILY [facility] Last Admin: 01/19/19 10:13 Dose: 40 mg Polyethylene Glycol/Electrolytes (Miralax*) 17 gm PO BID [facility] Last Admin: 01/19/19 09:59 Dose: 17 gm Sertraline HCl (Zoloft*) 150 mg PO QAM [facility] Last Admin: 01/19/19 09:58 Dose: 150 mg Tiotropium Britt (Spiriva Respimat 2.5 Mcg) 2 puff INH DAILY [facility] Last Admin: 01/19/19 08:12 Dose: Not Given Vital Signs - 8 hr 01/19/19 01/19/19 01/19/19 04:10 08:31 08:32 Temperature 36.8 C Pulse Rate 82 Respiratory 18 16 16 Rate Blood Pressure 114/69 (mmHg) O2 Sat by Pulse 100 Oximetry 01/19/19 01/19/19 01/19/19 09:31 09:59 10:07 Temperature Pulse Rate Respiratory 17 17 17 Rate Blood Pressure (mmHg) O2 Sat by Pulse Oximetry Oxygen Devices in Use Now: Nasal Cannula Appearance: awake, very quiet voice Ears/Nose/Mouth/Throat: Clear Oropharnyx Neck: No Thyroid Enlargement, Masses Respiratory: Clear to Auscultation Cardiovascular: NL Sounds; No Murmurs; No JVD Abdominal: NL Sounds; No Tenderness; No Distention, No Hepatosplenomegaly Neurological: - - diffucult to understand the few words she says Lines/Tubes/Other Access: Clean, Dry and Intact Peripheral IV Nutrition: Taking PO's, TPN - Nutrition: Malnutrition Diagnosis/Plan Malnutrition Assessment by Registered Dietitian: Malnutrition Assessment Clinical Characteristics Chronic,Severe Malnutrition Assessment: Muscle Wasting - Temporal muscle (moderate) Criteria Inadequate Oral Intake - Pt reports having poor appetite, consistent w/ visits x1 mo. - Anticipate meeting <75% nutrient needs >1 mo. ( severe) Unintentional Weight Loss - Current wt 112lb, prev wt on record 126lb (11/2018) - 11.11% loss x1 mo (severe) Malnutrition Assessment: Nutritional Supplementals/Nourishments - Pt not Interventions amenable to scheduled nourishments/supplements at this time; will continue to monitor intakes and offer again as indicated. GI Related - Recommend continuing antiemetics PRN and standing bowel meds; will monitor GI s/ sx for impact on intake. Malnutrition Assessment: Goals 1) Pt will tolerate least restrictive dietary textures w/o difficulty chewing/swallowing or exac of GI s/sx 2) Adequate po intake to replete lean body mass , support wt gain as desired and hydration status 3) Improve fluid/electrolyte balance w/ adequate po intake and medical mgmt of hypercalcemia 4) Improve bowel regularity w/ adequate po intake and standing bowel meds w/o exac of constipation/development of diarrhea Result Diagrams: 01/16/19 05:35 01/19/19 06:00 Assess/Plan/Problems-Billing Assessment: Ms. Nelson is a 74 y.o female with a past medical history of hypercalcemia related to lithium use, hyperparathyroidism, Parkinson, bipolar who presented with nausea, vomiting and not tolerating medications. - Patient Problems (1) Hyperparathyroidism due to lithium therapy Current Visit: Yes Status: Acute Priority: High Code(s): E21.1 - SECONDARY HYPERPARATHYROIDISM, NOT ELSEWHERE CLASSIFIED SNOMED Code(s): 918543926 Comment: - Hypercalcemia resolved at this point - Dr. Pastor would consider outpatient surgery, 3-1/2 gland parathyroidectomy (2) UTI (urinary tract infection) Current Visit: Yes Status: Acute Priority: Medium Comment: - Likely related to chronic espnioza placement - urine culture with Klebsiella pneumoniae- sensitive to ceftriaxone - on day 4/5 ceftriaxone (3) FTT (failure to thrive) in adult Current Visit: Yes Status: Acute Priority: Medium Comment: - Appears to have FTT, had palliative care consult - Responding well to TPN. - Added marinol, and cut down on polypharmacy, stopped inderal, scopolamine - Electrolytes normalizing, no change to TPN formula - asking for transfer to [facility], I called them yesterday, no bed yet (4) Anemia Current Visit: Yes Status: Chronic Priority: Medium Code(s): D64.9 - ANEMIA, UNSPECIFIED SNOMED Code(s): 853355900 Comment: -Reviewed EGD this month, colonoscopy 2 years ago -Needs FOBT, erythropoeitin pending -workup so far shows anemia of chronic disease -Would consider bone marrow aspiration due to 30 lb weight loss,anemia (5) DVT prophylaxis Current Visit: Yes Status: Acute Priority: Low Code(s): CXG8561 - SNOMED Code(s): 126494396 Comment: - SCD's (6) Bipolar disorder Current Visit: No Status: Chronic Priority: High Comment: - Call made to Dr. Torres, outpatient psychiatrist, he should call back - Discussed with , difficult to find alternative to lithium - decreased [place], continue Lamotrigine, clonazepam, sertraline - Will stop mirtazipine and observe for sleeplessness. (7) Coagulation defect Current Visit: Yes Status: Resolved Priority: Medium Comment: -Discussed LP with Dr. Cloud. -Gave VitK due to nutritional deficiency, INR now essentially normal. 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
[2019-01-19] MEDS: cefTRIAXone(*) 1 GM in NS 0.9% 50 ML* 50 ML IVPB SCH (12:11)
--- NOTE | 2019-01-19 16:41 | CONS ---
GASTROENTEROLOGY CONSULT: DATE: 01/19/19 CONSULTING PHYSICIAN: Dr. Ramses Llamas. REASON FOR CONSULT: Anorexia, nausea, and vomiting. HISTORY: The hospitalist team asked me to evaluate this woman for gastrostomy tube feedings. She has had a several-month period of declining functionality both mental status and physical capabilities. Initially, she was having nausea and vomiting. No cause has been determined with extensive evaluation. Hypercalcemia was plausibly the cause for this, though she has had her calcium normalized several times and just recently had an intravenous bisphosphonate and her calcium has improved, though the ionized calcium is still elevated somewhat (1.46 - normal range 1.16 to 1.32 on 01/17/19). She had been unable to tolerate an oral regimen to normalize the calcium. Several GI consults and upper endoscopy on 12/16/18 has not come up with a structural or inflammatory cause for inability to eat. Her white count has been normal and LFTs normal and CRP 3 values during this recent decline most recently 12/24/18 have been normal. She has been recently afebrile. Several CT scans have not shown anything other than presumably not clinically significant cholelithiasis and some constipation. She has not been vomiting in recent days. She has been taking in small amounts of fluid. There has no sign of obstruction on imaging. Today, she had a medium -sized brown bowel movement that her witnessed and said it appeared fairly normal. PAST MEDICAL HISTORY: 1. Bipolar disorder - on lithium. 2. Hyperparathyroidism - felt to be medication induced. 3. Depression and anxiety. 4. Parkinsonism. 5. Neurogenic bladder with chronic [place]. 6. Urethral stricture. 7. COPD. 8. Status post right total knee replacement. 9. Status post oophorectomy. 10. Status post hand surgery. 11. Polypharmacy. MEDICATIONS: Currently in the hospital, she is receivin. Carbidopa/levodopa. 2. Clonazepam. 3. Dronabinol. 4. Lamotrigine. 5. Raymond carbonate. 6. Morphine p.r.n. 7. Parenteral nutrition started 3 days ago (with adjustment of phosphate). 8. Sertraline 150 mg. 9. Pantoprazole 40 mg IV daily. SOCIAL HISTORY: She has been many years. Her owns [employer] in town. They had vacationed in [place] a number of years. 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 REVIEW OF SYSTEMS: She quit smoking a number of years ago. She has COPD. She has never had any history of syncope, arrhythmias, cardiac issues, hepatitis, jaundice, liver disease. She has not had abdominal surgery. Given her decline mental status, today she underwent a lumbar puncture. She has never had any sign of internal bleeding or anemia - her hemoglobin fell to 7.5 today. Studies checking for hemolysis have been negative. PHYSICAL EXAM: She is a chronically ill-appearing woman with diminished mental status, although she can mumble appropriate answers to limited questions ( having met me before - yes/where are you, in the hospital). HEENT exam shows no icterus. Mucous membranes appear normal. She has no adenopathy. Breath sounds are diminished bilaterally and effort is poor. Heart sounds are regular. The abdomen is nondistended, average configuration, soft, and nontender. There are no scars. Extremities show 1 to 2+ edema at the ankles. LABORATORY DATA: Hemoglobin 7.5, MCV 87, platelets 232. INR 1.12, PTT 32. BUN 23, creatinine 0.58. Iron saturation 28%, ferritin 399. B12 greater than 1450 (07/19/18) and TSH 3 weeks ago 0.93. Raymond level today 0.77 (normal 0.6 to 1.2). IMPRESSION: This 74-year-old woman has nutritional needs that are now being met with peripheral nutrition. A better option would be enteric feeding. The burden of repeated NG attempts given the longevity anticipated for this would appear to favor percutaneous gastrostomy. This was discussed in detail with the patient's after a full review of her very complicated course with the hospitalist staff. Multiple studies are planned for 01/20/19, and the plan will be 01/21/19. [id number]/[facility] #: [id number] HEALTH SYSTEMRohit
[2019-01-19] MEDS: TPN* 24 HR with Dextrose 50% Water* 500 ML, Amino Acid Infusion 10%* 850 ML, Sterile Wa... CENTR SCH ×11 (17:10)
--- NOTE | 2019-01-19 17:24 | PN ---
Progress Note - Progress Note Date of Service: 01/19/19 Note: Brief event note: Called to see patient re swelling LT lower jaw noted by family. There may be some pain when feeding/swabbing. On exam, there is mild edema RT upper cheek, and LT julita-mandibular area No tenderness gum line, no lesions on buccal mucosa. There is soft edema of LT cheek, near mandible. Suspect salivary inflammation, possible stone. Advised lemon drop to stimulate saliva. Nursing will monitor.
[2019-01-19] MEDS: Lithium Carbonate ER* 450 MG TAB.ER PO SCH ×2 (20:08→21:00)
[2019-01-20] MEDS: Morphine INJ* 2 MG/ML 1 ML SYRINGE (TWO MG - NEW SYRINGE VERSION) IV PRN ×4 (02:29→21:19)
[2019-01-20 05:38] LABS: BUN/Creatinine Ratio 41.8 (8-20); Calcium 8.5 mg/dL (8.6-10.3); EGFR African American 131.5 (>60); EGFR Non-African American 108.6 (>60); Potassium 4.5 mmol/L (3.5-5.0)
[2019-01-20] MEDS: Mometasone/Formoter 200/5 MDI INH SCH ×2 (07:49→21:30)
[2019-01-20] MEDS: SPIRIVA Respimat* (tiotropium) 2.5 mcg/inh Inhaler INH SCH (07:50)
[2019-01-20] MEDS: Ondansetron INJ* 2 MG/ML VIAL IV PRN (08:11)
[2019-01-20] MEDS: clonazePAM TAB(*) 0.5 MG PO SCH ×3 (09:34→21:11)
[2019-01-20] MEDS: lamoTRIgine TAB(*) 100 MG PO SCH ×2 (09:34→21:11)
[2019-01-20] MEDS: Sertraline* 100 MG TAB PO SCH (09:34)
[2019-01-20] MEDS: Pantoprazole IV* 40 MG IV SCH (09:34)
[2019-01-20] MEDS: Carbidopa/Levodop 25/100 MG TAB(*) PO SCH ×3 (10:16→19:23)
[2019-01-20] MEDS: Dronabinol CAP* 2.5 MG PO SCH ×3 (10:16→21:26)
[2019-01-20] MEDS: Docusate CAP* 100 MG PO SCH ×2 (10:30→21:16)
[2019-01-20] MEDS: Polyethylene Glycol 3350* 17 GM PACKET PO SCH ×2 (10:30→21:17)
[2019-01-20] MEDS: Lactulose* 15 ML UDC PO SCH ×3 (10:31→21:16)
[2019-01-20] MEDS: Cyanocobalamin TAB* 500 MCG PO SCH ×2 (11:04→21:11)
[2019-01-20] MEDS: TPN* 24 HR with Dextrose 50% Water* 500 ML, Amino Acid Infusion 10%* 850 ML, Sterile Wa... CENTR SCH ×11 (16:27)
[2019-01-20 17:08] LABS: CSF Glucose 81 mg/dL (40-70)
--- NOTE | 2019-01-20 19:16 | PN ---
Subjective Date of Service: 01/20/19 Interval History: Deconditioned. Does not answer questions or follow commands. FTT Family History: Unchanged from Admission Social History: Unchanged from Admission Past Medical History: Unchanged from Admission Objective Active Medications: Acetaminophen (Tylenol Tab*) 650 mg PO Q8H PRN PRN Reason: PAIN - MODERATE Carbidopa/Levodopa (Sinemet 25/100 Tab(*)) 3 tab PO 0830,1300,1830 [facility] Last Admin: 01/20/19 13:51 Dose: 3 tab Clonazepam (Klonopin Tab(*)) 0.5 mg PO TID [facility] Last Admin: 01/20/19 13:50 Dose: 0.5 mg Cyanocobalamin (Vitamin B12 Tab*) 500 mcg PO BID [facility] Last Admin: 01/20/19 11:04 Dose: Not Given Docusate Sodium (Colace Cap*) 100 mg PO BID [facility] Last Admin: 01/20/19 10:30 Dose: Not Given Dronabinol (Marinol Cap*) 2.5 mg PO TID [facility] Last Admin: 01/20/19 13:51 Dose: 2.5 mg Heparin Sodium (Porcine) (Heparin Flush Picc/Ml/Cvc(*)) 1 - 3 ml FLUSH 0600, 1800 [facility]; Protocol Last Admin: 01/20/19 04:54 Dose: 1 ml Dextrose 500 ml/ Amino Acids 850 ml/ Sterile Water 150 ml/Fat Emulsion Intravenous 250 ml/ Sodium Chloride 60 meq/Potassium Chloride 40 meq/Potassium Phosphate 30 mmole/Magnesium Sulfate 20 meq/Multivitamins 10 ml/ Trace Metals 1 ml/ Nutrition ( Parenteral) 1,810.9261 mls @ 75.455 mls/hr CENTR 1700 [facility]; Protocol Last Admin: 01/20/19 16:27 Dose: 75.455 mls/hr Lactulose (Lactulose*) 15 ml PO TID [facility] Last Admin: 01/20/19 13:36 Dose: Not Given Lamotrigine (Lamictal Tab(*)) 100 mg PO BID [facility] Last Admin: 01/20/19 09:34 Dose: 100 mg [place] Carbonate ([place] Carbonate Tab*) 450 mg PO BEDTIME [facility] Mometasone Furoate/Formoterol Fumar (Dulera 200/5 Mdi*) 2 puff INH BID [facility]; Protocol Last Admin: 01/20/19 07:49 Dose: 2 puff Morphine Sulfate (Morphine Inj (Syringe))*) 2 mg IV Q3H PRN PRN Reason: PAIN - MODERATE Last Admin: 01/20/19 12:42 Dose: 2 mg Ondansetron HCl (Zofran Inj*) 4 mg IV Q6H PRN PRN Reason: NAUSEA Last Admin: 01/20/19 08:11 Dose: 4 mg Pantoprazole Sodium (Protonix Iv*) 40 mg IV DAILY [facility] Last Admin: 01/20/19 09:34 Dose: 40 mg Polyethylene Glycol/Electrolytes (Miralax*) 17 gm PO BID [facility] Last Admin: 01/20/19 10:30 Dose: Not Given Sertraline HCl (Zoloft*) 150 mg PO QAM [facility] Last Admin: 01/20/19 09:34 Dose: 150 mg Tiotropium [place] (Spiriva Respimat 2.5 Mcg) 2 puff INH DAILY [facility] Last Admin: 01/20/19 07:50 Dose: 2 puff Vital Signs - 8 hr 01/20/19 01/20/19 01/20/19 11:15 12:36 12:42 Temperature 97.7 F Pulse Rate 84 Respiratory 18 18 18 Rate Blood Pressure 100/63 (mmHg) O2 Sat by Pulse 95 Oximetry 01/20/19 01/20/19 01/20/19 13:35 13:50 13:51 Temperature Pulse Rate Respiratory 18 18 18 Rate Blood Pressure (mmHg) O2 Sat by Pulse Oximetry 01/20/19 01/20/19 01/20/19 14:01 15:15 16:08 Temperature 98.9 F Pulse Rate 79 Respiratory 16 12 18 Rate Blood Pressure 143/117 (mmHg) O2 Sat by Pulse 95 Oximetry Oxygen Devices in Use Now: None Eyes: No Scleral Icterus Ears/Nose/Mouth/Throat: NL Teeth, Lips, Gums Neck: NL Appearance and Movements; NL JVP Respiratory: Symmetrical Chest Expansion and Respiratory Effort, Clear to Auscultation Cardiovascular: NL Sounds; No Murmurs; No JVD Abdominal: NL Sounds; No Tenderness; No Distention Extremities: No Edema Neurological: - - disoriented, unable to communicate, poor swallow, unable to move extremities,poor strength - Nutrition: Malnutrition Diagnosis/Plan Malnutrition Assessment by Registered Dietitian: Malnutrition Assessment Clinical Characteristics Chronic,Severe Malnutrition Assessment: Muscle Wasting - Temporal muscle (moderate) Criteria Inadequate Oral Intake - Pt reports having poor appetite, consistent w/ visits x1 mo. - Anticipate meeting <75% nutrient needs >1 mo. ( severe) Unintentional Weight Loss - Current wt 112lb, prev wt on record 126lb (11/2018) - 11.11% loss x1 mo (severe) Malnutrition Assessment: Nutritional Supplementals/Nourishments - Pt not Interventions amenable to scheduled nourishments/supplements at this time; will continue to monitor intakes and offer again as indicated. GI Related - Recommend continuing antiemetics PRN and standing bowel meds; will monitor GI s/ sx for impact on intake. Malnutrition Assessment: Goals 1) Pt will tolerate least restrictive dietary textures w/o difficulty chewing/swallowing or exac of GI s/sx 2) Adequate po intake to replete lean body mass , support wt gain as desired and hydration status 3) Improve fluid/electrolyte balance w/ adequate po intake and medical mgmt of hypercalcemia 4) Improve bowel regularity w/ adequate po intake and standing bowel meds w/o exac of constipation/development of diarrhea Result Diagrams: 01/16/19 05:35 01/20/19 05:00 Microbiology and Other Data: Microbiology 01/13/19 19:15 Urine Urine Culture - Final Klebsiella Pneumoniae 01/13/19 08:17 Blood Venous Aerobic Blood Culture - Final 01/13/19 08:17 Blood Venous Anaerobic Blood Culture - Final No Growth Day 5 No Growth Day 5 01/13/19 08:04 Blood Venous Aerobic Blood Culture - Final 01/13/19 08:04 Blood Venous Anaerobic Blood Culture - Final No Growth Day 5 No Growth Day 5 Assess/Plan/Problems-Billing Assessment: Ms. Nelson is a 74 y.o female with a past medical history of hypercalcemia related to lithium use, hyperparathyroidism, Parkinson, bipolar who presented with nausea, vomiting and not tolerating medications. - Patient Problems (1) FTT (failure to thrive) in adult Current Visit: Yes Status: Acute Priority: Medium Comment: - Appears to have FTT, had palliative care consult - Responding well to TPN. - Added marinol, and cut down on polypharmacy, stopped inderal, scopolamine - Electrolytes normalizing, no change to TPN formula - asked for transfer to [facility]. Dr Llamas called [facility] yesterday and they declined acute transfer -Can consider outpt workup (2) Hyperparathyroidism due to lithium therapy Current Visit: Yes Status: Acute Priority: High Code(s): E21.1 - SECONDARY HYPERPARATHYROIDISM, NOT ELSEWHERE CLASSIFIED SNOMED Code(s): 520900774 Comment: - Hypercalcemia resolved at this point - Dr. Pastor would consider outpatient surgery, 3-1/2 gland parathyroidectomy -Hypercalcemia w/u performed before -If issue, can repeat -Will check electrophoresis to r/o multiple myeloma in setting of anemia, hypercal (3) Malnutrition Current Visit: Yes Status: Acute Code(s): E46 - UNSPECIFIED PROTEIN-CALORIE MALNUTRITION SNOMED Code(s): 74417319 Comment: Severe -Patient has severe malnutirtion d/t nausea and vomiting , no appeitite - nutrition consulted -On TPN -Appreciate GI input -Plan for PEG tube placement tomorrow -Will make NPO after midnight for now and d/w GI on time in am (4) UTI (urinary tract infection) Current Visit: Yes Status: Acute Priority: Medium Comment: - Likely related to chronic espinoza placement - urine culture with Klebsiella pneumoniae- sensitive to ceftriaxone - on day 5/ ceftriaxone (5) Anemia Current Visit: Yes Status: Chronic Priority: Medium Code(s): D64.9 - ANEMIA, UNSPECIFIED SNOMED Code(s): 740321847 Comment: -Reviewed EGD this month, colonoscopy 2 years ago -Needs FOBT( pending), erythropoeitin pending -workup so far shows anemia of chronic disease -Would consider bone marrow aspiration due to 30 lb weight loss,anemia -Check for myeloma with electrophoresis -Iron wnl, ldh wnl -will add b12, spep,upep,kappa lambda light chains,fobt (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 Cloud. -Gave VitK due to nutritional deficiency, INR now essentially normal. -Recheck tomorrow -If higher, can check for antiphospholipid/anti cardiolipin and factor 7 level (8) Parkinson disease Current Visit: No Status: Acute Code(s): G20 - PARKINSON'S DISEASE SNOMED Code(s): 37033370 Comment: - continue Sinimet (9) Bipolar disorder Current Visit: No Status: Chronic Priority: High Comment: - Discussed with , difficult to find alternative to lithium - decreased [place], continue Lamotrigine, clonazepam, sertraline - Will stop mirtazipine and observe for sleeplessness. -on lithium (10) DVT prophylaxis Current Visit: Yes Status: Acute Priority: Low Code(s): EEL8661 - SNOMED Code(s): 555670428 Comment: - SCD's Status and Disposition: inpatient, transfer to [place] is pending
[2019-01-20 20:03] LABS: Corrected Retic Count 1.5 % (0.5-1.5); Hematocrit for Retic CNT 20 % (35-47); Immature Retic Fraction 0.62; RBC Retic Count 2.26 10^6/uL (3.70-4.87)
--- NOTE | 2019-01-20 20:45 | EEG ---
ELECTROENCEPHALOGRAPHY REPORT: DATE OF STUDY: 01/20/19 - ROOM #421 DATE READ: 01/20/19 MEDICATIONS: 1. Sinemet. 2. Klonopin. 3. Vitamin B12. 4. Colace. 5. Lactulose. 6. Lamictal. 7. Dulera. 8. Protonix. 9. MiraLAX. 10. Zoloft. 11. Spiriva. 12. TPN. 13. Heparin. 14. Marland. 15. Tylenol. 16. Morphine. 17. Zofran. 18. Rocephin. DURATION OF THE RECORDIN:36 - 11:17. CLINICAL PROBLEM: Mrs. Nelson is a 74-year-old female with an underlying neurodegenerative disorder who has increased confusion. This EEG was obtained to evaluate for epileptiform abnormalities or electrographic seizures. CLINICAL STATE: Encephalopathic. REPORT: The background lacked organization with clearly defined anterior- posterior voltage and frequency gradients. There was no discernible posterior dominant rhythm, instead the background consisted of diffuse medium amplitude, polymorphic 2- 6 Hz delta and theta range slowing. There were epochs where the background showed a slow posterior dominant rhythm, but poorly sustained and at a frequency 5.5 Hz. At times, the delta slowing became sharply contoured and took on a triphasic morphology. There was some emergence of faster frequency with verbal and tactile stimulation. Please note that during this recording, there were high amplitude multifocal slowing in bilateral occipital region and in the left frontal region. Single electrode EKG showed normal sinus rhythm. Throughout the recording, there were no clear electrographic seizures. CLINICAL IMPRESSION: This is a markedly abnormal EEG due to the presence of diffuse slowing, slowing of the posterior dominant rhythm, and high amplitude multifocal slowing in bilateral occipital and left frontal regions. These findings are suggestive of nonspecific moderate diffuse encephalopathy and multifocal areas of neuronal dysfunction. There were no electrographic seizures. [id number]/[facility] #: [id number] [facility]
[2019-01-20] MEDS: Lithium Carbonate TAB* 300 MG PO SCH (21:12)
[2019-01-21 04:45] LABS: INR 1.11 (0.82-1.09)
[2019-01-21 04:49] LABS: Hematocrit 20 % (35-47); Hemoglobin 6.5 g/dL (12.0-16.0); Mean Corpuscular HGB Conc 32 g/dL (31-36); Mean Corpuscular Hemoglobin 29 pg (27-31); Mean Corpuscular Volume 91 fL (80-97); Platelet Count 211 10^3/uL (150-450); Red Blood Count 2.21 10^6 /uL (3.70-4.87); Red Cell Distribution Width 22 % (10-15); White Blood Count 8.6 10^3/uL (3.5-10.8)
[2019-01-21 04:50] LABS: ABS Basophils 0.1 10^3/ul (0-0.2); ABS Eosinophils 0.5 10^3/ul (0-0.6); ABS Lymphocytes 1.5 10^3/ul (1.0-4.8); ABS Monocytes 0.6 10^3/ul (0-0.8); Eosinophil % 5.2 %; Lymphocyte % 17.3 %
[2019-01-21 05:05] LABS: Albumin/Globulin Ratio 1.6 (1-3); BUN/Creatinine Ratio 45.3 (8-20); Calcium 8.5 mg/dL (8.6-10.3); EGFR African American 137.2 (>60); EGFR Non-African American 113.4 (>60); Globulin 1.9 g/dL (2-4); Magnesium 2.2 mg/dL (1.9-2.7); Phosphorus 2.5 mg/dL (2.5-5.0); Potassium 4.5 mmol/L (3.5-5.0); Total Bilirubin 0.3 mg/dL (0.2-1.0); Total Protein 4.9 g/dL (6.4-8.9)
[2019-01-21] MEDS: SPIRIVA Respimat* (tiotropium) 2.5 mcg/inh Inhaler INH SCH (08:45)
[2019-01-21] MEDS: Mometasone/Formoter 200/5 MDI INH SCH ×2 (08:45→19:48)
[2019-01-21] MEDS: Morphine INJ* 2 MG/ML 1 ML SYRINGE (TWO MG - NEW SYRINGE VERSION) IV PRN ×2 (08:49→12:06)
[2019-01-21] MEDS: Carbidopa/Levodop 25/100 MG TAB(*) PO SCH ×3 (08:52→19:35)
[2019-01-21] MEDS: clonazePAM TAB(*) 0.5 MG PO SCH ×3 (08:54→21:29)
[2019-01-21] MEDS: lamoTRIgine TAB(*) 100 MG PO SCH ×2 (08:54→21:30)
[2019-01-21] MEDS: Sertraline* 100 MG TAB PO SCH (08:55)
[2019-01-21] MEDS: Dronabinol CAP* 2.5 MG PO SCH ×3 (08:57→21:29)
[2019-01-21] MEDS: Cyanocobalamin TAB* 500 MCG PO SCH ×2 (08:57→21:29)
[2019-01-21] MEDS: Docusate CAP* 100 MG PO SCH ×2 (08:57→19:38)
[2019-01-21] MEDS: Polyethylene Glycol 3350* 17 GM PACKET PO SCH ×2 (08:58→19:40)
[2019-01-21] MEDS: Lactulose* 15 ML UDC PO SCH ×3 (08:58→19:40)
[2019-01-21] MEDS: Pantoprazole IV* 40 MG IV SCH (08:58)
[2019-01-21] MEDS ORDERED: Acetaminophen SUPP* 650 MG SUPP PR ONE (10:11)
--- NOTE | 2019-01-21 13:22 | PN ---
Subjective Date of Service: 01/21/19 Length of Stay: 8 Days Neurology is following for the presumed diagnosis of progressive neurodegenerative disorder. She has clinical deterioration and progression of her neurodegenerative condition. Interval History: This is a complex case. I reviewed Dr. Oneill's consultation note, clinic notes, and excellent summary of all the tests and imaging studies from the past 12-15 years. The patient was initially seen by Dr. Oneill in 2005 for tremors. She was diagnosed with Parkinson's disease in 2011-03. A Stephon-scan confirmed the diagnosis. Mrs. Nelosn is complaining of pain in the left cheek. The pain The patient is severely anemic with hemoglobin level of 6.5 today. I personally contacted Dr. Elizalde and informed her about this finding. Review of Systems: Denied CP, SOB, or palpitations. Family History: Unchanged from Admission Social History: Unchanged from Admission Past Medical History: Unchanged from Admission Objective Active Medications: Acetaminophen (Tylenol Tab*) 650 mg PO Q8H PRN PRN Reason: PAIN - MODERATE Carbidopa/Levodopa (Sinemet 25/100 Tab(*)) 3 tab PO 0830,1300,1830 [facility] Last Admin: 01/21/19 12:06 Dose: 3 tab Clonazepam (Klonopin Tab(*)) 0.5 mg PO TID [facility] Last Admin: 01/21/19 08:54 Dose: 0.5 mg Cyanocobalamin (Vitamin B12 Tab*) 500 mcg PO BID [facility] Last Admin: 01/21/19 08:57 Dose: Not Given Docusate Sodium (Colace Cap*) 100 mg PO BID [facility] Last Admin: 01/21/19 08:57 Dose: Not Given Dronabinol (Marinol Cap*) 2.5 mg PO TID [facility] Last Admin: 01/21/19 08:57 Dose: Not Given Heparin Sodium (Porcine) (Heparin Flush Picc/Ml/Cvc(*)) 1 - 3 ml FLUSH 0600, 1800 [facility]; Protocol Last Admin: 01/21/19 05:16 Dose: 1 ml Dextrose 500 ml/ Amino Acids 850 ml/ Sterile Water 150 ml/Fat Emulsion Intravenous 250 ml/ Sodium Chloride 60 meq/Potassium Chloride 40 meq/Potassium Phosphate 30 mmole/Magnesium Sulfate 20 meq/Multivitamins 10 ml/ Trace Metals 1 ml/ Nutrition ( Parenteral) 1,810.9261 mls @ 75.455 mls/hr CENTR 1700 [facility]; Protocol Last Admin: 01/20/19 16:27 Dose: 75.455 mls/hr Lactulose (Lactulose*) 15 ml PO TID [facility] Last Admin: 01/21/19 08:58 Dose: Not Given Lamotrigine (Lamictal Tab(*)) 100 mg PO BID [facility] Last Admin: 01/21/19 08:54 Dose: 100 mg [place] Carbonate ([place] Carbonate Tab*) 450 mg PO BEDTIME [facility] Last Admin: 01/20/19 21:12 Dose: 450 mg Mometasone Furoate/Formoterol Fumar (Dulera 200/5 Mdi*) 2 puff INH BID [facility]; Protocol Last Admin: 01/21/19 08:45 Dose: 2 puff Morphine Sulfate (Morphine Inj (Syringe))*) 2 mg IV Q3H PRN PRN Reason: PAIN - MODERATE Last Admin: 01/21/19 12:06 Dose: 2 mg Ondansetron HCl (Zofran Inj*) 4 mg IV Q6H PRN PRN Reason: NAUSEA Last Admin: 01/20/19 08:11 Dose: 4 mg Pantoprazole Sodium (Protonix Iv*) 40 mg IV DAILY [facility] Last Admin: 01/21/19 08:58 Dose: Not Given Polyethylene Glycol/Electrolytes (Miralax*) 17 gm PO BID [facility] Last Admin: 01/21/19 08:58 Dose: Not Given Sertraline HCl (Zoloft*) 150 mg PO QAM [facility] Last Admin: 01/21/19 08:55 Dose: 150 mg Tiotropium [place] (Spiriva Respimat 2.5 Mcg) 2 puff INH DAILY [facility] Last Admin: 01/21/19 08:45 Dose: 2 puff Vital Signs 01/20/19 01/20/19 01/20/19 13:35 13:50 13:51 Temperature Pulse Rate Respiratory 18 18 18 Rate Blood Pressure (mmHg) O2 Sat by Pulse Oximetry 01/20/19 01/20/19 01/20/19 14:01 15:15 16:08 Temperature 98.9 F Pulse Rate 79 Respiratory 16 12 18 Rate Blood Pressure 143/117 (mmHg) O2 Sat by Pulse 95 Oximetry 01/20/19 01/20/19 01/20/19 19:15 21:11 21:19 Temperature 98.4 F Pulse Rate 80 Respiratory 18 18 18 Rate Blood Pressure 101/58 (mmHg) O2 Sat by Pulse 95 Oximetry 01/20/19 01/20/19 01/20/19 21:34 21:53 22:05 Temperature Pulse Rate 77 Respiratory 20 18 16 Rate Blood Pressure (mmHg) O2 Sat by Pulse 92 92 Oximetry 01/20/19 01/20/19 01/21/19 23:00 23:47 03:15 Temperature 98.3 F 98.5 F Pulse Rate 78 76 Respiratory 14 15 14 Rate Blood Pressure 100/61 96/55 (mmHg) O2 Sat by Pulse 95 97 Oximetry 01/21/19 01/21/19 01/21/19 07:15 08:00 08:48 Temperature 98.7 F Pulse Rate 78 73 Respiratory 20 20 18 Rate Blood Pressure 113/65 (mmHg) O2 Sat by Pulse 96 96 Oximetry 01/21/19 01/21/19 01/21/19 08:49 08:54 11:02 Temperature Pulse Rate Respiratory 20 20 20 Rate Blood Pressure (mmHg) O2 Sat by Pulse Oximetry 01/21/19 01/21/19 01/21/19 11:03 11:04 12:06 Temperature 99.6 F Pulse Rate 85 Respiratory 20 20 18 Rate Blood Pressure 112/61 (mmHg) O2 Sat by Pulse 96 Oximetry Intake and Output Last 24 Hours 01/19/19 01/20/19 01/21/19 01/22/19 06:59 06:59 06:59 06:59 Intake Total 2733 1785 2117 Output Total 3350 2500 1550 Balance -617 -715 567 Weight 110 lb 11.2 oz Intake: IV Fluids 65 25 NS 65 25 IVPB 60 55 Ceftriaxone 60 55 TPN/PPN 1668 1705 1767 Oral 940 0 350 Output: Urine 1500 [place] 3350 1000 1550 Other: Estimated Void Large Date of Last Bowel unknown Movement # Bowel Movements 0 1 Estimated Stool Amount Medium # Voids 1 Oxygen Devices in Use Now: None Neurology Exam: General: Well nourished, well developed, and in no acute distress HEENT: Normocephelic/atraumatic, sclera anicteric, mucous membranes moist Neck: Supple Chest: Clear to auscultation bilaterally Cardiovascular: Regular rate and rhythm without murmurs, rubs, gallops Abdomen: Soft, non-tender/non-distended Extremities: No clubbing, cyanosis, or edema Neurological Findings: Awake, alert, and oriented to person, place, and time. Speech: fluent without dysarthria, repetition intact Cranial Nerve: PERRL, EOM intact, VFF, no nystagmus, face symmetric bilaterally , facial sensation intact, hearing intact to finger rub bilaterally, palate elevates symmetrically, tongue midline, SCM and Trapezius s/s. Motor: s/s throughout, proximal and distal extremities x4 tone/bulk normal Sensation: intact to LT/PP bilaterally upper and lower extremities Deep Tendon Reflex: 2+ symmetric in the upper/lower extremities, Babinski - down going Finger to nose, rapid alternating movements intact without tremor, no dysdiadochokinesia Gait: intact with good arm swing and stride Result Diagrams: 01/21/19 04:25 01/21/19 04:25 Microbiology and Other Data: Microbiology 01/13/19 19:15 Urine Urine Culture - Final Klebsiella Pneumoniae 01/13/19 08:17 Blood Venous Aerobic Blood Culture - Final 01/13/19 08:17 Blood Venous Anaerobic Blood Culture - Final No Growth Day 5 No Growth Day 5 01/13/19 08:04 Blood Venous Aerobic Blood Culture - Final 01/13/19 08:04 Blood Venous Anaerobic Blood Culture - Final No Growth Day 5 No Growth Day 5
[2019-01-21 16:18] LABS: Oligoclonal Proteins Interpret 0 bands (<4)
--- NOTE | 2019-01-21 16:57 | CONS ---
NEUROLOGY CONSULTATION NOTE: DATE OF CONSULT: 01/21/19 PRIMARY PROVIDER: Dr. Gaxiola. REASON FOR NEUROLOGICAL CONSULTATION: Followup with ordered labs. Please note that Dr. Sharp saw Mrs. Nelson on 01/18/19 for consultation. CHIEF COMPLAINT: "My left cheek hurts." REVIEW OF THE MEDICAL HISTORY: Mrs. Nelson is a 74-year-old female who is well known to Dr. Sharp for many years. Mrs. Nelson first saw Dr. Sharp for tremor in 2005. Eventually, the patient was diagnosed with Parkinson's disease with a positive DaTscan at the [facility] and was following with Dr. Reinaldo Perez. She was on Sinemet. Over the past 5 months , the patient has deteriorated both cognitively and has gait instability. According to her , the patient was in her baseline cognitive status until August 2018. Prior to that the patient was ambulating without assistance and they were both going out for dinner almost every night. However in August, the patient was found to have a urinary tract infection, which required her to be hospitalized. Since then, she required initially walker and subsequently became wheelchair bound over the past 4 months. Her cognitive dysfunction seemed to have been declining since she moved from [place] to the [facility]. Dr. Sharp saw the patient recently for workup of increasing cognitive dysfunction, and the patient was found to have urinary tract infection with positive cultures for Klebsiella pneumoniae. She was treated with Rocephin from 01/15/19 to 01/20/19. The patient was found to have hyperparathyroidism with abnormal calcium levels that is likely related to chronic lithium therapy. She apparently was worked up for a paraneoplastic panel in the past at [facility] and another paraneoplastic panel in the CSF was sent by Dr. Sharp. Unfortunately, the cell count was not done as the CSF orders were not placed until 24 hours later. The CSF count would have to be done within an hour of obtaining the CSF. However, the protein was within normal range and the paraneoplastic labs were sent out. I reviewed the patient's MRI that was done in October 2018. There seems to be some evidence of hummingbird sign with some mid brain atrophy disproportional to the pontine size. According to her , his main concern now is the patient has developed a possible abscess formation in the left cheek. She has a lot of pain. There has been no fevers or chills. The area is extremely tender to touch. Furthermore, the patient has been hospitalized 4 times over the last 5 months due to urinary tract infections. Her gait has deteriorated significantly. She has not walked for the past 2 weeks. Due to the complexity of the case, there was recommendation to transfer the patient to a higher level of care. This is being reviewed by the primary team. From my point of view, the patient is going to require a PEG tube placement and there is nothing acute other than the ongoing infections that will require further higher level of care. However, given that the patient's neurologist, Dr. Reinaldo Perez is at the [facility], discussed the case with him and seen if he would be interested in taking over the patient's care at the [facility] as indicated at this time. The patient does have an appointment to see Dr. Perez next week. Please note that anticholinergic medications have been discontinued since the patient's hospitalization. Mr. Nelson stated that the patient's constipation has significantly improved with lactulose. She can go from 9 to 10 days without having a bowel movement. CURRENT MEDICATIONS: 1. Acetaminophen 650 mg p.o. every 8 hours as needed for pain. 2. Carbidopa/levodopa 25/100 three tablets by mouth at 8:30, 1300, and 1830. 3. Clonazepam 0.5 mg p.o. t.i.d. scheduled. 4. Cyanocobalamin 500 mcg p.o. b.i.d. 5. Docusate sodium 100 mg p.o. b.i.d. 6. Marinol 2.5 mg p.o. t.i.d. 7. Heparin sodium flushes. 8. Lactulose 15 mL p.o. t.i.d. 9. Lamotrigine 100 mg p.o. b.i.d. 10. [place] carbonate 450 mg p.o. at bedtime. 11. Mometasone furoate 2 puffs inhaled b.i.d. 12. Morphine 2 mg IV every 3 hours as needed for pain. 13. Ondansetron 4 mg IV every 6 hours as needed. 14. Pantoprazole 40 mg IV daily. 15. MiraLAX 17 g p.o. b.i.d. 16. Sertraline 150 mg p.o. in the morning. 17. Tiotropium 2 puffs inhaled daily. CSF RESULTS: CSF glucose 81, CSF total protein 32. We do not have a suspicion for any infections; however, we are waiting on HSV, cryptococcus, enterovirus. The patient is pending a PEG tube placement. I reviewed the past medical history, social history, and family history with the patient's and there has been no additional information. REVIEW OF SYSTEMS: The patient denied any chest pain, shortness of breath, or palpitation. PHYSICAL EXAM: Vitals: Temperature 99.6, pulse of 85, respiratory rate of 20, oxygen saturation of 96%, blood pressure of 112/61. General: Ill-appearing frail female, in mild distress due to left facial pain. Head: Atraumatic, normocephalic. There is some obvious swelling on the left cheek region with extreme tenderness to palpation around the V2, V3 distributions. Eyes: Conjunctivae/corneas are clear. Neck is supple and symmetrical with no carotid bruits. No nuchal rigidity. Cardiovascular: Regular rate and rhythm with normal S1, S2. Pulmonary: Clear to auscultation with no wheezing or rhonchi. Extremities: No hammertoes or high arches. No cyanosis. Psych: Flat affect, depressed mood. Difficult to establish rapport due to overall decline in cognition. Neurological Examination: Mental Status: Awake, alert to self, spouse, but no date. She is clear of the overall circumstances. She is complaining predominantly of pain in the left cheek. She has significant hypophonia. Cranial Nerves: Pupils equal, round, and reactive to light. She does have trouble with extraocular movements with restricted movements both horizontally, but significantly vertically as well, both upwards or downwards. He has got a masked face appearance. Intact sensation in the face bilaterally. No facial symmetry. Tongue is symmetrical and midline with no atrophy. Motor Examination: Bilateral 8-12 Hz posture tremor in the upper and lower extremities. There is a mild resting component. She has some chin tremors. Otherwise, she was able to move both upper extremities more than the lower extremities antigravity. Reflexes: Trace throughout. Downgoing flexor plantar responses. Coordination and Gait: Inability to participate. The patient had significant retropulsion when she was turned towards the side of the bed prior to checking her extraocular muscle movements. ASSESSMENT AND RECOMMENDATIONS: Mrs. Cyndi Nelson is a 74-year-old female who has a longstanding history of underlying neurodegenerative disorder for which Parkinson's was the working diagnosis a few years, supported by a positive DaTscan, who presented to [facility] last week for failure to thrive. She was found to have a urinary tract infection on 01/13/19. She was treated with Rocephin Subsequently, the patient has had progressive cognitive decline, dysphagia, dysarthria, and immobility for the past few months. These problems seem to have been exacerbated now but this hospitalization, and likely due to the infection. She is scheduled to have a PEG tube placement. Current ongoing acute problems is that the patient is anemic with a hemoglobin of 6.5. There is no clear etiology to the anemia. The primary team is on board and I personally discussed this multiple times today with Dr. Elizalde. Further workup is ongoing. The patient's is concerned that there is not an exact diagnosis to her neurodegenerative condition. I spent approximately 45 minutes with the patient and her discussing the progression of neurodegenerative disorders, especially in the setting of infection, frequent hospitalizations, and been exposed to unfamiliar environment. I also reviewed the imaging with Mr. Nelson today from the most latest MRI scan that was done in October 2018. I pointed out that given the patient's restricted extraocular muscle movements, I am concerned that she may have progressive supranuclear palsy syndrome. Other differential diagnosis would be advanced Parkinson's disease. There is no further workup other than following up on the paraneoplastic panel that was ordered in the CSF. Normal protein level suggests against an underlying autoimmune, infectious, or inflammatory process. We were unable to obtain the cell count in diff because the orders were not received by our laboratory within the recommended time. Once medically stable from the anemia standpoint and if she tolerates the PEG tube placement, she will be discharged to a rehabilitation facility. She does have an appointment with Dr. Perez. If the family wished to transport the patient to a tertiary center, I have no objections. I will defer further management and recommendations to the primary team. Please contact me for any questions or concerns. I will discuss the case with Dr. Sharp. [id number]/[facility] #: [id number] [facility]
[2019-01-21] MEDS ORDERED: ceFAZolin 1 GM ADVAN(*) 1 GM in NS 0.9% 50 ML* 50 ML IVPB ONE (17:00)
[2019-01-21] MEDS ORDERED: ceFAZolin 1 GM ADVAN(*) 1 GM ADDV.VIAL IVPB ONE (17:04)
[2019-01-21] MEDS ORDERED: Midazolam* 1 MG/ML 10 ML VIAL (10 MG) ONE (17:10)
[2019-01-21] MEDS ORDERED: fentaNYL* 50 MCG/ML 2 ML VIAL (100 MCG VIAL) ONE (17:10)
[2019-01-21] MEDS: TPN* 24 HR with Dextrose 50% Water* 500 ML, Amino Acid Infusion 10%* 850 ML, Sterile Wa... CENTR SCH ×11 (19:34)
--- NOTE | 2019-01-21 20:25 | PN ---
Subjective Date of Service: 01/21/19 Interval History: Hgb trended below 7 today without active signs of bleeding. Pt unable to answer questions regarding symptoms of anemia. Does deny pain on palpation of swollen L cheek (parotid). Plan for PEG tube placement with Dr. Bautista. Objective Active Medications: Acetaminophen (Tylenol Tab*) 650 mg PO Q8H PRN PRN Reason: PAIN - MODERATE Carbidopa/Levodopa (Sinemet 25/100 Tab(*)) 3 tab PO 0830,1300,1830 [facility] Last Admin: 01/21/19 19:35 Dose: 3 tab Clonazepam (Klonopin Tab(*)) 0.5 mg PO TID [facility] Last Admin: 01/21/19 13:40 Dose: 0.5 mg Cyanocobalamin (Vitamin B12 Tab*) 500 mcg PO BID [facility] Last Admin: 01/21/19 08:57 Dose: Not Given Docusate Sodium (Colace Cap*) 100 mg PO BID [facility] Last Admin: 01/21/19 19:38 Dose: Not Given Dronabinol (Marinol Cap*) 2.5 mg PO TID [facility] Last Admin: 01/21/19 13:29 Dose: Not Given Heparin Sodium (Porcine) (Heparin Flush Picc/Ml/Cvc(*)) 1 - 3 ml FLUSH 0600, 1800 [facility]; Protocol Last Admin: 01/21/19 05:16 Dose: 1 ml Dextrose 500 ml/ Amino Acids 850 ml/ Sterile Water 150 ml/Fat Emulsion Intravenous 250 ml/ Sodium Chloride 60 meq/Potassium Chloride 40 meq/Potassium Phosphate 30 mmole/Magnesium Sulfate 20 meq/Multivitamins 10 ml/ Trace Metals 1 ml/ Nutrition ( Parenteral) 1,810.9261 mls @ 75.455 mls/hr CENTR 1700 [facility]; Protocol Last Admin: 01/21/19 19:34 Dose: 75.455 mls/hr Lactulose (Lactulose*) 15 ml PO TID [facility] Last Admin: 01/21/19 19:40 Dose: Not Given Lamotrigine (Lamictal Tab(*)) 100 mg PO BID [facility] Last Admin: 01/21/19 08:54 Dose: 100 mg Helper Carbonate (Helper Carbonate Tab*) 450 mg PO BEDTIME [facility] Last Admin: 01/20/19 21:12 Dose: 450 mg Mometasone Furoate/Formoterol Fumar (Dulera 200/5 Mdi*) 2 puff INH BID [facility]; Protocol Last Admin: 01/21/19 19:48 Dose: Not Given Morphine Sulfate (Morphine Inj (Syringe))*) 2 mg IV Q3H PRN PRN Reason: PAIN - MODERATE Last Admin: 01/21/19 12:06 Dose: 2 mg Ondansetron HCl (Zofran Inj*) 4 mg IV Q6H PRN PRN Reason: NAUSEA Last Admin: 01/20/19 08:11 Dose: 4 mg Pantoprazole Sodium (Protonix Iv*) 40 mg IV DAILY [facility] Last Admin: 01/21/19 08:58 Dose: Not Given Polyethylene Glycol/Electrolytes (Miralax*) 17 gm PO BID [facility] Last Admin: 01/21/19 19:40 Dose: Not Given Sertraline HCl (Zoloft*) 150 mg PO QAM [facility] Last Admin: 01/21/19 08:55 Dose: 150 mg Tiotropium [place] (Spiriva Respimat 2.5 Mcg) 2 puff INH DAILY [facility] Last Admin: 01/21/19 08:45 Dose: 2 puff Vital Signs - 8 hr 01/21/19 01/21/19 01/21/19 13:27 13:40 14:25 Temperature 97.8 F Pulse Rate 78 Respiratory 18 18 16 Rate Blood Pressure 102/61 (mmHg) O2 Sat by Pulse 97 Oximetry 01/21/19 01/21/19 01/21/19 14:40 15:02 19:15 Temperature 98.0 F 98.0 F 97.0 F Pulse Rate 78 78 77 Respiratory 16 16 14 Rate Blood Pressure 102/62 102/62 92/55 (mmHg) O2 Sat by Pulse 97 97 95 Oximetry 01/21/19 19:24 Temperature Pulse Rate Respiratory 16 Rate Blood Pressure (mmHg) O2 Sat by Pulse Oximetry Oxygen Devices in Use Now: None Appearance: chronically ill appearing frail woman in NAD Eyes: No Scleral Icterus Ears/Nose/Mouth/Throat: Clear Oropharnyx, Mucous Membranes Moist Neck: NL Appearance and Movements; NL JVP Respiratory: Symmetrical Chest Expansion and Respiratory Effort, Clear to Auscultation - anteriorly Cardiovascular: NL Sounds; No Murmurs; No JVD, RRR Abdominal: NL Sounds; No Tenderness; No Distention, No Hepatosplenomegaly Extremities: No Edema Neurological: - - poor ability to follow commands, diffuse weakness - Nutrition: Malnutrition Diagnosis/Plan Malnutrition Assessment by Registered Dietitian: Malnutrition Assessment Clinical Characteristics Chronic,Severe Malnutrition Assessment: Muscle Wasting - Temporal muscle (moderate) Criteria Inadequate Oral Intake - Pt reports having poor appetite, consistent w/ visits x1 mo. - Anticipate meeting <75% nutrient needs >1 mo. ( severe) Unintentional Weight Loss - Current wt 112lb, prev wt on record 126lb (11/2018) - 11.11% loss x1 mo (severe) Malnutrition Assessment: Nutritional Supplementals/Nourishments - Pt not Interventions amenable to scheduled nourishments/supplements at this time; will continue to monitor intakes and offer again as indicated. GI Related - Recommend continuing antiemetics PRN and standing bowel meds; will monitor GI s/ sx for impact on intake. Malnutrition Assessment: Goals 1) Pt will tolerate least restrictive dietary textures w/o difficulty chewing/swallowing or exac of GI s/sx 2) Adequate po intake to replete lean body mass , support wt gain as desired and hydration status 3) Improve fluid/electrolyte balance w/ adequate po intake and medical mgmt of hypercalcemia 4) Improve bowel regularity w/ adequate po intake and standing bowel meds w/o exac of constipation/development of diarrhea Result Diagrams: 01/21/19 04:25 01/21/19 04:25 Microbiology and Other Data: Microbiology 01/13/19 19:15 Urine Urine Culture - Final Klebsiella Pneumoniae 01/13/19 08:17 Blood Venous Aerobic Blood Culture - Final 01/13/19 08:17 Blood Venous Anaerobic Blood Culture - Final No Growth Day 5 No Growth Day 5 01/13/19 08:04 Blood Venous Aerobic Blood Culture - Final 01/13/19 08:04 Blood Venous Anaerobic Blood Culture - Final No Growth Day 5 No Growth Day 5 Assess/Plan/Problems-Billing Assessment: 74W with PD, possible progressive supranuclear palsy, hypercalcemia related to lithium use and hyperparathyroidism, bipolar, who re-presents with nausea, vomiting and not tolerating PO. - Patient Problems (1) FTT (failure to thrive) in adult Current Visit: Yes Status: Acute Priority: Medium Comment: Appears to have FTT, had palliative care consult - Responding well to TPN, to get PEG today - Added marinol, and cut down on polypharmacy, stopped inderal, scopolamine - asked for transfer to [facility]/[place]. They declined acute transfer -Can consider outpt workup (2) Hyperparathyroidism due to lithium therapy Comment: - Hypercalcemia resolved at this point - Dr. Pastor would consider outpatient surgery, 3-1/2 gland parathyroidectomy -Hypercalcemia w/u performed before -If issue, can repeat -Will check electrophoresis to r/o multiple myeloma in setting of anemia, hypercal (3) Malnutrition Current Visit: Yes Status: Acute Code(s): E46 - UNSPECIFIED PROTEIN-CALORIE MALNUTRITION SNOMED Code(s): 52122243 Comment: Severe -Patient has severe malnutirtion d/t nausea and vomiting , no appeitite - nutrition consulted -On TPN, to get PEG todau (4) Anemia Comment: Reviewed EGD this month, colonoscopy 2 years ago. Workup so far shows anemia of chronic disease. -Needs FOBT (pending, although now likely to be positive after PEG), erythropoeitin pending -Would consider bone marrow aspiration due to 30 lb weight loss,anemia -Check for myeloma with electrophoresis - f/u b12, spep,upep,kappa lambda light chains,fobt (5) Parkinson disease Current Visit: No Status: Acute Code(s): G20 - PARKINSON'S DISEASE SNOMED Code(s): 39901265 Comment: - continue Sinimet (6) Bipolar disorder Current Visit: No Status: Chronic Priority: High Comment: - Discussed with , difficult to find alternative to lithium - decreased Hel[place], continue Lamotrigine, clonazepam, sertraline - Will stop mirtazipine and observe for sleeplessness. -on lithium Status and Disposition: inpatient, transfer to [place] is pending
[2019-01-21] MEDS: Lithium Carbonate TAB* 300 MG PO SCH (21:30)
--- NOTE | 2019-01-22 02:13 | PRO ---
DATE: 01/21/19 - ROOM #[id number] REFERRING PHYSICIAN: Angela Leal.* PROCEDURE: Upper gastrointestinal endoscopy and placement of percutaneous gastrostomy. INDICATION: Inability to eat, with declining mental status and TPN dependency. Just one month ago upper endoscopy was unremarkable. Informed consent had been obtained from the patient's . ENDOSCOPIST: Dr. Bautista. MEDICATIONS: Midazolam 6, fentanyl 50. FINDINGS: She is a debilitated woman with dry mucous membranes. She was positioned supine. EGD: Esophagus - Dry, normal views of intact mucosa. The EG junction was sightly loose at 39. Stomach - Generally normal mucosa without any blood or erosions. Finger indentation was readily obtained as well as transillumination. Duodenum - The pylorus, bulb, and second through fourth portions were normal. The skin was then washed, infiltrated with 1% lidocaine in the transillumination spot, and then a 2 cm horizontal incision made. There was some free bleeding of about 5 to 10 cc, which then stopped. A trocar was introduced, grasped with a snare in a standard fashion and the guidewire was used to pull in a traction PEG. There was no further bleeding. Endoscopic recheck showed a dilating effect with superficial at 18 and 38 cm, both at a 3 o 'clock orientation. There was no bleeding in the stomach lumen. The procedure was terminated. IMPRESSION: 1. Narrow esophagus at two points - minimal dilation achieved. 2. Dysphagia, with poor oral hygiene. 3. Dysphagia and anorexia - Percutaneous gastrostomy placed. [id number]/[facility] #: [id number] [facility] [place] [facility]
[2019-01-22] MEDS: Morphine INJ* 2 MG/ML 1 ML SYRINGE (TWO MG - NEW SYRINGE VERSION) IV PRN ×2 (05:08→11:14)
[2019-01-22 05:24] LABS: Hematocrit 26 % (35-47); Hemoglobin 8.2 g/dL (12.0-16.0); Mean Corpuscular HGB Conc 32 g/dL (31-36); Mean Corpuscular Hemoglobin 29 pg (27-31); Mean Corpuscular Volume 90 fL (80-97); Platelet Count 243 10^3/uL (150-450); Red Blood Count 2.83 10^6 /uL (3.70-4.87); Red Cell Distribution Width 20 % (10-15); White Blood Count 8.6 10^3/uL (3.5-10.8)
[2019-01-22 05:42] LABS: BUN/Creatinine Ratio 52.2 (8-20); Calcium 8.3 mg/dL (8.6-10.3); EGFR African American 161.6 (>60); EGFR Non-African American 133.5 (>60); Magnesium 2.1 mg/dL (1.9-2.7); Potassium 4.4 mmol/L (3.5-5.0)
[2019-01-22] MEDS: SPIRIVA Respimat* (tiotropium) 2.5 mcg/inh Inhaler INH SCH (09:40)
[2019-01-22] MEDS: Mometasone/Formoter 200/5 MDI INH SCH ×2 (09:41→20:10)
[2019-01-22] MEDS: Carbidopa/Levodop 25/100 MG TAB(*) PO SCH ×2 (11:01→11:33)
[2019-01-22] MEDS: clonazePAM TAB(*) 0.5 MG PO SCH (11:01)
[2019-01-22] MEDS: Sertraline* 100 MG TAB PO SCH (11:03)
[2019-01-22] MEDS: Dronabinol CAP* 2.5 MG PO SCH ×5 (11:03→22:01)
[2019-01-22] MEDS: lamoTRIgine TAB(*) 100 MG PO SCH (11:03)
[2019-01-22] MEDS: Lactulose* 15 ML UDC PO SCH (11:04)
[2019-01-22] MEDS: Polyethylene Glycol 3350* 17 GM PACKET PO SCH (11:05)
[2019-01-22] MEDS: Cyanocobalamin TAB* 500 MCG PO SCH (11:40)
[2019-01-22] MEDS: clonazePAM TAB(*) 0.5 MG PEG TUBE SCH ×2 (14:45→21:32)
[2019-01-22] MEDS: Carbidopa/Levodop 25/100 MG TAB(*) PEG TUBE SCH ×2 (14:45→18:10)
[2019-01-22] MEDS: Lactulose* 15 ML UDC PEG TUBE SCH ×2 (14:46→21:33)
[2019-01-22 16:32] LABS: Kappa Free Light Chain 1.81 mg/dL; Lambda Free Light Chain 1.19 mg/dL
[2019-01-22] MEDS ORDERED: LORazepam INJ* 2 MG/ML 1 ML VIAL ONE (16:36)
[2019-01-22] MEDS ORDERED: Haloperidol INJ IV/IM* 5 MG/ML AMP ONE (16:54)
[2019-01-22 17:03] LABS: HSV 1 PCR, CSF Negative (Negative); HSV 2 PCR, CSF Negative (Negative)
--- NOTE | 2019-01-22 17:17 | PN ---
Subjective Date of Service: 01/22/19 Interval History: Had PEG tube placed yesterday. Tolerated procedure well. Starting tube feeds today. Significantly improved after blood transfusion - sitting at side of bed, more alert, able to say 1-2 word sentences. FOBT negative. Hgb responded appropriately. Objective Active Medications: Acetaminophen (Tylenol Adult Liq*) 650 mg PEG TUBE Q8H PRN PRN Reason: PAIN - MODERATE Carbidopa/Levodopa (Sinemet 25/100 Tab(*)) 3 tab PEG TUBE 0830,1300,1830 [facility] Last Admin: 01/22/19 18:10 Dose: 3 tab Clonazepam (Klonopin Tab(*)) 0.5 mg PEG TUBE TID [facility] Last Admin: 01/22/19 14:45 Dose: 0.5 mg Cyanocobalamin (Vitamin B12 Tab*) 500 mcg PEG TUBE BID [facility] Dronabinol (Marinol Cap*) 2.5 mg PO TID [facility] Last Admin: 01/22/19 14:45 Dose: Not Given Heparin Sodium (Porcine) (Heparin Flush Picc/Ml/Cvc(*)) 1 - 3 ml FLUSH 0600, 1800 [facility]; Protocol Last Admin: 01/22/19 18:11 Dose: 2 ml Lactulose (Lactulose*) 15 ml PEG TUBE TID [facility] Last Admin: 01/22/19 14:46 Dose: 15 ml Lamotrigine (Lamictal Tab(*)) 100 mg PEG TUBE BID [facility] [place] Citrate ([place] Liq*) 450 mg PEG TUBE BEDTIME [facility] Mometasone Furoate/Formoterol Fumar (Dulera 200/5 Mdi*) 2 puff INH BID [facility]; Protocol Last Admin: 01/22/19 20:10 Dose: 2 puff Morphine Sulfate (Morphine Inj (Syringe))*) 2 mg IV Q3H PRN PRN Reason: PAIN - MODERATE Last Admin: 01/22/19 11:14 Dose: 2 mg Ondansetron HCl (Zofran Inj*) 4 mg IV Q6H PRN PRN Reason: NAUSEA Last Admin: 01/20/19 08:11 Dose: 4 mg Polyethylene Glycol/Electrolytes (Miralax*) 17 gm PEG TUBE BID [facility] Sertraline HCl (Zoloft*) 150 mg PEG TUBE QAM [facility] Tiotropium [place] (Spiriva Respimat 2.5 Mcg) 2 puff INH DAILY [facility] Last Admin: 01/22/19 09:40 Dose: 2 puff Vital Signs - 8 hr 01/22/19 01/22/19 01/22/19 09:48 11:01 11:14 Temperature Pulse Rate 80 Respiratory 15 18 18 Rate Blood Pressure (mmHg) O2 Sat by Pulse 98 Oximetry 01/22/19 01/22/19 01/22/19 11:15 13:55 13:56 Temperature 97.4 F Pulse Rate 69 Respiratory 14 18 18 Rate Blood Pressure 112/84 (mmHg) O2 Sat by Pulse 100 Oximetry 01/22/19 01/22/19 01/22/19 13:58 14:45 15:55 Temperature 97.4 F Pulse Rate 78 Respiratory 18 18 12 Rate Blood Pressure 109/76 (mmHg) O2 Sat by Pulse 98 Oximetry Oxygen Devices in Use Now: None Appearance: frail appearing woman, sitting in chair in better spirits, more alert Eyes: No Scleral Icterus Ears/Nose/Mouth/Throat: Clear Oropharnyx, Mucous Membranes Moist Neck: Trachea Midline Respiratory: Symmetrical Chest Expansion and Respiratory Effort, Clear to Auscultation Cardiovascular: RRR Abdominal: NL Sounds; No Tenderness; No Distention, No Hepatosplenomegaly, - - PEG tube site c/d/i Extremities: No Edema Skin: No Rash or Ulcers - Nutrition: Malnutrition Diagnosis/Plan Malnutrition Assessment by Registered Dietitian: Malnutrition Assessment Clinical Characteristics Chronic,Severe Malnutrition Assessment: Muscle Wasting - Temporal muscle (moderate) Criteria Inadequate Oral Intake - Pt reports having poor appetite, consistent w/ visits x1 mo. - Anticipate meeting <75% nutrient needs >1 mo. ( severe) Unintentional Weight Loss - Current wt 112lb, prev wt on record 126lb (11/2018) - 11.11% loss x1 mo (severe) Malnutrition Assessment: Nutritional Supplementals/Nourishments - Pt not Interventions amenable to scheduled nourishments/supplements at this time; will continue to monitor intakes and offer again as indicated. GI Related - Recommend continuing antiemetics PRN and standing bowel meds; will monitor GI s/ sx for impact on intake. Malnutrition Assessment: Goals 1) Pt will tolerate least restrictive dietary textures w/o difficulty chewing/swallowing or exac of GI s/sx 2) Adequate po intake to replete lean body mass , support wt gain as desired and hydration status 3) Improve fluid/electrolyte balance w/ adequate po intake and medical mgmt of hypercalcemia 4) Improve bowel regularity w/ adequate po intake and standing bowel meds w/o exac of constipation/development of diarrhea Result Diagrams: 01/22/19 05:13 01/22/19 05:13 Microbiology and Other Data: Microbiology 01/13/19 19:15 Urine Urine Culture - Final Klebsiella Pneumoniae 01/13/19 08:17 Blood Venous Aerobic Blood Culture - Final 01/13/19 08:17 Blood Venous Anaerobic Blood Culture - Final No Growth Day 5 No Growth Day 5 01/13/19 08:04 Blood Venous Aerobic Blood Culture - Final 01/13/19 08:04 Blood Venous Anaerobic Blood Culture - Final No Growth Day 5 No Growth Day 5 Assess/Plan/Problems-Billing Assessment: 74W with PD, possible progressive supranuclear palsy, hypercalcemia related to lithium use and hyperparathyroidism, bipolar, who re-presents with nausea, vomiting and not tolerating PO. - Patient Problems (1) FTT (failure to thrive) in adult Comment: Appears to have FTT, had palliative care consult. Likely from progression of neurodegenerative disorder. - responded well to TPN, now s/p PEG and initiating tube feeds - Added marinol, and cut down on polypharmacy, stopped inderal, scopolamine - asked for transfer to [facility]/[place]. They declined acute transfer (2) Parkinson disease Comment: - continue Sinimet (3) Hyperparathyroidism due to lithium therapy Comment: Hypercalcemia resolved at this point. Possibly caused presenting symptoms. - Dr. Pastor would consider outpatient surgery, 3-1/2 gland parathyroidectomy - Appreciate Dr. Mark input - was on Cinacalcet, then got zoledronic acid x 1, with excellent response (4) Anemia Comment: Reviewed EGD this month, colonoscopy 2 years ago. Workup so far shows anemia of chronic disease. FOBT negative. Good response to transfusion 01/21. (5) Bipolar disorder Comment: - Discussed with , difficult to find alternative to lithium - decreased [place], continue Lamotrigine, clonazepam, sertraline - Will stop mirtazipine and observe for sleeplessness. (6) DVT prophylaxis Current Visit: Yes Status: Acute Priority: Low Code(s): JUC7727 - SNOMED Code(s): 360033491 Comment: - SCD's Status and Disposition: inpatient, transfer to [place] is pending
[2019-01-22 19:37] LABS: B. garinii/B. afzellii PCR Negative (Negative); Lyme Disease Source CSF
[2019-01-22] MEDS: Lithium LIQ* 300 MG/5 ML UDC PEG TUBE SCH (21:33)
[2019-01-22] MEDS: Polyethylene Glycol 3350* 17 GM PACKET PEG TUBE SCH (21:33)
[2019-01-22] MEDS: Cyanocobalamin TAB* 500 MCG PEG TUBE SCH (21:33)
[2019-01-22] MEDS: lamoTRIgine TAB(*) 100 MG PEG TUBE SCH (21:33)
[2019-01-23] MEDS: SPIRIVA Respimat* (tiotropium) 2.5 mcg/inh Inhaler INH SCH (08:15)
[2019-01-23] MEDS: Mometasone/Formoter 200/5 MDI INH SCH ×2 (08:15→19:48)
[2019-01-23] MEDS: Dronabinol CAP* 2.5 MG PO SCH ×3 (10:50→20:28)
[2019-01-23] MEDS: Carbidopa/Levodop 25/100 MG TAB(*) PEG TUBE SCH ×4 (11:00→16:51)
[2019-01-23] MEDS: Lactulose* 15 ML UDC PEG TUBE SCH ×4 (11:00→21:39)
[2019-01-23] MEDS: clonazePAM TAB(*) 0.5 MG PEG TUBE SCH ×5 (11:00→21:38)
[2019-01-23] MEDS: lamoTRIgine TAB(*) 100 MG PEG TUBE SCH ×2 (11:00→21:38)
[2019-01-23] MEDS: Cyanocobalamin TAB* 500 MCG PEG TUBE SCH ×2 (11:01→21:38)
[2019-01-23] MEDS: Sertraline* 100 MG TAB PEG TUBE SCH (11:01)
[2019-01-23] MEDS: Polyethylene Glycol 3350* 17 GM PACKET PEG TUBE SCH ×2 (11:02→21:26)
[2019-01-23 11:41] LABS: Albumin 2.6 g/dL (3.4-4.7); Albumin/Globulin Ratio 1.09; Gamma Globulin 0.5 g/dL (0.6-1.6); Total Protein(PEP) 4.9 g/dL (6.3 - 7.9)
--- NOTE | 2019-01-23 18:15 | PN ---
Subjective Date of Service: 01/23/19 Interval History: No acute events overnight. Tolerating increase in tube feeds. Also more alert and interactive with and taking more PO, but still small amounts. Objective Active Medications: Acetaminophen (Tylenol Adult Liq*) 650 mg PEG TUBE Q8H PRN PRN Reason: PAIN - MODERATE Carbidopa/Levodopa (Sinemet 25/100 Tab(*)) 3 tab PEG TUBE 0830,1300,1830 [facility] Last Admin: 01/23/19 16:51 Dose: 3 tab Clonazepam (Klonopin Tab(*)) 0.5 mg PEG TUBE TID [facility] Last Admin: 01/23/19 16:51 Dose: 0.5 mg Cyanocobalamin (Vitamin B12 Tab*) 500 mcg PEG TUBE BID [facility] Last Admin: 01/23/19 11:01 Dose: 500 mcg Dronabinol (Marinol Cap*) 2.5 mg PO TID [facility] Last Admin: 01/23/19 15:26 Dose: Not Given Heparin Sodium (Porcine) (Heparin Flush Picc/Ml/Cvc(*)) 1 - 3 ml FLUSH 0600, 1800 [facility]; Protocol Last Admin: 01/23/19 16:52 Dose: 2 ml Lactulose (Lactulose*) 15 ml PEG TUBE TID [facility] Last Admin: 01/23/19 15:29 Dose: Not Given Lamotrigine (Lamictal Tab(*)) 100 mg PEG TUBE BID [facility] Last Admin: 01/23/19 11:00 Dose: 100 mg [place] Citrate ([place] Liq*) 450 mg PEG TUBE BEDTIME [facility] Last Admin: 01/22/19 21:33 Dose: 450 mg Mometasone Furoate/Formoterol Fumar (Dulera 200/5 Mdi*) 2 puff INH BID [facility]; Protocol Last Admin: 01/23/19 08:15 Dose: 2 puff Ondansetron HCl (Zofran Inj*) 4 mg IV Q6H PRN PRN Reason: NAUSEA Last Admin: 01/20/19 08:11 Dose: 4 mg Polyethylene Glycol/Electrolytes (Miralax*) 17 gm PEG TUBE BID [facility] Last Admin: 01/23/19 11:02 Dose: Not Given Sertraline HCl (Zoloft*) 150 mg PEG TUBE QAM [facility] Last Admin: 01/23/19 11:01 Dose: 150 mg Tiotropium [place] (Spiriva Respimat 2.5 Mcg) 2 puff INH DAILY [facility] Last Admin: 01/23/19 08:15 Dose: 2 puff Vital Signs - 8 hr 01/23/19 01/23/19 01/23/19 10:50 11:00 14:30 Temperature Pulse Rate Respiratory 18 18 18 Rate Blood Pressure (mmHg) O2 Sat by Pulse Oximetry 01/23/19 01/23/19 15:15 16:51 Temperature 98.1 F Pulse Rate 73 Respiratory 18 18 Rate Blood Pressure 108/67 (mmHg) O2 Sat by Pulse 98 Oximetry Oxygen Devices in Use Now: None Appearance: frail woman in NAD, resting comfortably Eyes: No Scleral Icterus Ears/Nose/Mouth/Throat: Clear Oropharnyx, Mucous Membranes Moist Neck: NL Appearance and Movements; NL JVP, Trachea Midline Respiratory: Symmetrical Chest Expansion and Respiratory Effort, Clear to Auscultation Cardiovascular: NL Sounds; No Murmurs; No JVD, RRR Abdominal: NL Sounds; No Tenderness; No Distention, No Hepatosplenomegaly - PEG tube in place Extremities: No Edema Skin: No Rash or Ulcers Neurological: Alert and Oriented x 3 - Nutrition: Malnutrition Diagnosis/Plan Malnutrition Assessment by Registered Dietitian: Malnutrition Assessment Clinical Characteristics Chronic,Severe Malnutrition Assessment: Muscle Wasting - Temporal muscle (moderate) Criteria Inadequate Oral Intake - Pt reports having poor appetite, consistent w/ visits x1 mo. - Anticipate meeting <75% nutrient needs >1 mo. ( severe) Unintentional Weight Loss - Current wt 112lb, prev wt on record 126lb (11/2018) - 11.11% loss x1 mo (severe) Malnutrition Assessment: Nutritional Supplementals/Nourishments - Pt not Interventions amenable to scheduled nourishments/supplements at this time; will continue to monitor intakes and offer again as indicated. GI Related - Recommend continuing antiemetics PRN and standing bowel meds; will monitor GI s/ sx for impact on intake. Malnutrition Assessment: Goals 1) Pt will tolerate least restrictive dietary textures w/o difficulty chewing/swallowing or exac of GI s/sx 2) Adequate po intake to replete lean body mass , support wt gain as desired and hydration status 3) Improve fluid/electrolyte balance w/ adequate po intake and medical mgmt of hypercalcemia 4) Improve bowel regularity w/ adequate po intake and standing bowel meds w/o exac of constipation/development of diarrhea Result Diagrams: 01/22/19 05:13 01/22/19 05:13 Microbiology and Other Data: Microbiology 01/13/19 19:15 Urine Urine Culture - Final Klebsiella Pneumoniae 01/13/19 08:17 Blood Venous Aerobic Blood Culture - Final 01/13/19 08:17 Blood Venous Anaerobic Blood Culture - Final No Growth Day 5 No Growth Day 5 01/13/19 08:04 Blood Venous Aerobic Blood Culture - Final 01/13/19 08:04 Blood Venous Anaerobic Blood Culture - Final No Growth Day 5 No Growth Day 5 Assess/Plan/Problems-Billing Assessment: 74W with PD, possible progressive supranuclear palsy, hypercalcemia related to lithium use and hyperparathyroidism, bipolar, who re-presents with nausea, vomiting and not tolerating PO. - Patient Problems (1) FTT (failure to thrive) in adult Comment: Appears to have FTT, had palliative care consult. Likely from progression of neurodegenerative disorder. - responded well to TPN, now s/p PEG and initiating tube feeds - Added marinol, and cut down on polypharmacy, stopped inderal, scopolamine - asked for transfer to [facility]/[place]. They declined acute transfer (2) Parkinson disease Comment: - continue Sinimet (3) Hyperparathyroidism due to lithium therapy Comment: Hypercalcemia resolved at this point. Possibly caused presenting symptoms. - Dr. Pastor would consider outpatient surgery, 3-1/2 gland parathyroidectomy - Appreciate Dr. Mark input - was on Cinacalcet, then got zoledronic acid x 1, with excellent response (4) Anemia Comment: Reviewed EGD this month, colonoscopy 2 years ago. Workup so far shows anemia of chronic disease. FOBT negative. Good response to transfusion 01/21. (5) Bipolar disorder Comment: - Discussed with , difficult to find alternative to lithium - decreased [place], continue Lamotrigine, clonazepam, sertraline - Will stop mirtazipine and observe for sleeplessness. (6) DVT prophylaxis Current Visit: Yes Status: Acute Priority: Low Code(s): COP1933 - SNOMED Code(s): 003691947 Comment: - SCD's Status and Disposition: inpatient, transfer to [place] is pending
[2019-01-23] MEDS: Lithium LIQ* 300 MG/5 ML UDC PEG TUBE SCH (21:39)
[2019-01-24] MEDS: SPIRIVA Respimat* (tiotropium) 2.5 mcg/inh Inhaler INH SCH (07:43)
[2019-01-24] MEDS: Mometasone/Formoter 200/5 MDI INH SCH ×2 (07:43→19:44)
[2019-01-24] MEDS: Carbidopa/Levodop 25/100 MG TAB(*) PEG TUBE SCH ×3 (08:51→20:25)
[2019-01-24] MEDS: Lactulose* 15 ML UDC PEG TUBE SCH ×3 (08:51→20:26)
[2019-01-24] MEDS: clonazePAM TAB(*) 0.5 MG PEG TUBE SCH ×3 (08:52→20:26)
[2019-01-24] MEDS: Sertraline* 100 MG TAB PEG TUBE SCH (08:52)
[2019-01-24] MEDS: Cyanocobalamin TAB* 500 MCG PEG TUBE SCH ×2 (08:53→20:25)
[2019-01-24] MEDS: lamoTRIgine TAB(*) 100 MG PEG TUBE SCH ×2 (08:53→20:25)
[2019-01-24] MEDS: Polyethylene Glycol 3350* 17 GM PACKET PEG TUBE SCH (09:28)
[2019-01-24] MEDS: Dronabinol CAP* 2.5 MG PO SCH ×2 (09:28→13:42)
[2019-01-24] MEDS: Acetaminophen ADULT LIQ* 650 MG/20.3 ML UDC PEG TUBE PRN (16:32)
[2019-01-24 16:53] LABS: Albumin 11 %; Albumin/Globulin Ratio 0.13 %; Gamma Globulin 20 %; Total Protein(PEP) Urine 13 mg/dL
--- NOTE | 2019-01-24 17:21 | PN ---
Subjective Date of Service: 01/24/19 Interval History: No acute events overnight. Patient tolerating increase in tube feeds, now up to 35 mL/hr, with goal 55 mL/hr. No recurrence of pain, hypoxia, n/v. Having normal BMs daily. Plan for [place] [facility] on Sunday. Objective Active Medications: Acetaminophen (Tylenol Adult Liq*) 650 mg PEG TUBE Q8H PRN PRN Reason: PAIN - MODERATE Last Admin: 01/24/19 16:32 Dose: 650 mg Carbidopa/Levodopa (Sinemet 25/100 Tab(*)) 3 tab PEG TUBE 0830,1300,1830 [facility] Last Admin: 01/24/19 13:27 Dose: 3 tab Clonazepam (Klonopin Tab(*)) 0.5 mg PEG TUBE TID [facility] Last Admin: 01/24/19 13:28 Dose: 0.5 mg Cyanocobalamin (Vitamin B12 Tab*) 500 mcg PEG TUBE BID [facility] Last Admin: 01/24/19 08:53 Dose: 500 mcg Heparin Sodium (Porcine) (Heparin Flush Picc/Ml/Cvc(*)) 1 - 3 ml FLUSH 0600, 1800 [facility]; Protocol Last Admin: 01/24/19 06:32 Dose: 2 ml Lactulose (Lactulose*) 15 ml PEG TUBE TID [facility] Last Admin: 01/24/19 13:28 Dose: 15 ml Lamotrigine (Lamictal Tab(*)) 100 mg PEG TUBE BID [facility] Last Admin: 01/24/19 08:53 Dose: 100 mg [place] Citrate ([place] Liq*) 450 mg PEG TUBE BEDTIME [facility] Last Admin: 01/23/19 21:39 Dose: 450 mg Mometasone Furoate/Formoterol Fumar (Dulera 200/5 Mdi*) 2 puff INH BID [facility]; Protocol Last Admin: 01/24/19 07:43 Dose: 2 puff Ondansetron HCl (Zofran Inj*) 4 mg IV Q6H PRN PRN Reason: NAUSEA Last Admin: 01/20/19 08:11 Dose: 4 mg Polyethylene Glycol/Electrolytes (Miralax*) 17 gm PEG TUBE BID [facility] Last Admin: 01/24/19 09:28 Dose: Not Given Sertraline HCl (Zoloft*) 150 mg PEG TUBE QAM [facility] Last Admin: 01/24/19 08:52 Dose: 150 mg Tiotropium [place] (Spiriva Respimat 2.5 Mcg) 2 puff INH DAILY [facility] Last Admin: 01/24/19 07:43 Dose: 2 puff Vital Signs - 8 hr 01/24/19 01/24/19 01/24/19 09:28 10:52 10:59 Temperature 97.7 F Pulse Rate 73 Respiratory 16 16 16 Rate Blood Pressure 111/67 (mmHg) O2 Sat by Pulse Oximetry 01/24/19 01/24/19 01/24/19 13:28 13:42 15:30 Temperature 97.1 F Pulse Rate 75 Respiratory 16 14 16 Rate Blood Pressure 101/73 (mmHg) O2 Sat by Pulse 97 Oximetry 01/24/19 15:34 Temperature Pulse Rate Respiratory 16 Rate Blood Pressure (mmHg) O2 Sat by Pulse Oximetry Oxygen Devices in Use Now: None Appearance: frail appearing, sleeping but alert to voice Eyes: No Scleral Icterus Ears/Nose/Mouth/Throat: Clear Oropharnyx, Mucous Membranes Moist Neck: NL Appearance and Movements; NL JVP, Trachea Midline Respiratory: Symmetrical Chest Expansion and Respiratory Effort, Clear to Auscultation Cardiovascular: NL Sounds; No Murmurs; No JVD, RRR Abdominal: NL Sounds; No Tenderness; No Distention, No Hepatosplenomegaly - PEG tube c/d/i Extremities: No Edema Skin: No Rash or Ulcers - Nutrition: Malnutrition Diagnosis/Plan Malnutrition Assessment by Registered Dietitian: Malnutrition Assessment Clinical Characteristics Chronic,Severe Malnutrition Assessment: Muscle Wasting - Temporal muscle (moderate) Criteria Inadequate Oral Intake - Pt reports having poor appetite, consistent w/ visits x1 mo. - Anticipate meeting <75% nutrient needs >1 mo. ( severe) Unintentional Weight Loss - Current wt 112lb, prev wt on record 126lb (11/2018) - 11.11% loss x1 mo (severe) Malnutrition Assessment: Nutritional Supplementals/Nourishments - Pt not Interventions amenable to scheduled nourishments/supplements at this time; will continue to monitor intakes and offer again as indicated. GI Related - Recommend continuing antiemetics PRN and standing bowel meds; will monitor GI s/ sx for impact on intake. Malnutrition Assessment: Goals 1) Pt will tolerate least restrictive dietary textures w/o difficulty chewing/swallowing or exac of GI s/sx 2) Adequate po intake to replete lean body mass , support wt gain as desired and hydration status 3) Improve fluid/electrolyte balance w/ adequate po intake and medical mgmt of hypercalcemia 4) Improve bowel regularity w/ adequate po intake and standing bowel meds w/o exac of constipation/development of diarrhea Result Diagrams: 01/22/19 05:13 01/22/19 05:13 Microbiology and Other Data: Microbiology 01/13/19 19:15 Urine Urine Culture - Final Klebsiella Pneumoniae 01/13/19 08:17 Blood Venous Aerobic Blood Culture - Final 01/13/19 08:17 Blood Venous Anaerobic Blood Culture - Final No Growth Day 5 No Growth Day 5 01/13/19 08:04 Blood Venous Aerobic Blood Culture - Final 01/13/19 08:04 Blood Venous Anaerobic Blood Culture - Final No Growth Day 5 No Growth Day 5 Assess/Plan/Problems-Billing Assessment: 74W with advanced PD, possible progressive supranuclear palsy, recurrent hypercalcemia related to lithium use and hyperparathyroidism, bipolar, who re- presents with nausea, vomiting and not tolerating PO. Now s/p PEG tube placement , with med optimization. - Patient Problems (1) FTT (failure to thrive) in adult Comment: Likely from progression of neurodegenerative disorder. - responded well to TPN, now s/p PEG and initiating tube feeds - Added marinol, and cut down on polypharmacy, stopped inderal, scopolamine - asked for transfer to [facility]/[place]. They declined acute transfer. - s/p Pall Care c/s (2) Parkinson disease Comment: possible progressive supranuclear palsy - continue Sinimet - appreciate neuro recs (3) Hyperparathyroidism due to lithium therapy Comment: Hypercalcemia resolved at this point. Possibly caused presenting symptoms. - Dr. Pastor would consider outpatient surgery, 3-1/2 gland parathyroidectomy - Appreciate Dr. Mark input - was on Cinacalcet, then got zoledronic acid x 1, with excellent response (4) Anemia Comment: Reviewed EGD this month, colonoscopy 2 years ago. Workup so far shows anemia of chronic disease. FOBT negative. Good response to transfusion 01/21. Suspect hemodiluation after starting TPN. (5) Bipolar disorder Comment: - Discussed with , difficult to find alternative to lithium - decreased [place], continue Lamotrigine, clonazepam, sertraline - Will stop mirtazipine and observe for sleeplessness. (6) DVT prophylaxis Current Visit: Yes Status: Acute Priority: Low Code(s): [id number] - SNOMED Code(s): 651918479 Comment: - SCD's Status and Disposition: inpatient, transfer to [place] is pending
[2019-01-24] MEDS: Lithium LIQ* 300 MG/5 ML UDC PEG TUBE SCH (20:23)
[2019-01-25] MEDS: Mometasone/Formoter 200/5 MDI INH SCH ×2 (07:14→20:43)
[2019-01-25] MEDS: SPIRIVA Respimat* (tiotropium) 2.5 mcg/inh Inhaler INH SCH (07:15)
[2019-01-25] MEDS: Lactulose* 15 ML UDC PEG TUBE SCH ×4 (07:46→20:27)
[2019-01-25] MEDS: Carbidopa/Levodop 25/100 MG TAB(*) PEG TUBE SCH ×3 (07:46→18:43)
[2019-01-25] MEDS: Cyanocobalamin TAB* 500 MCG PEG TUBE SCH ×2 (07:47→20:26)
[2019-01-25] MEDS: Sertraline* 100 MG TAB PEG TUBE SCH (07:48)
[2019-01-25] MEDS: clonazePAM TAB(*) 0.5 MG PEG TUBE SCH ×3 (07:50→20:24)
[2019-01-25] MEDS: lamoTRIgine TAB(*) 100 MG PEG TUBE SCH ×2 (07:51→20:25)
[2019-01-25] MEDS: Acetaminophen ADULT LIQ* 650 MG/20.3 ML UDC PEG TUBE PRN ×2 (07:59→20:14)
--- NOTE | 2019-01-25 13:17 | PN ---
Subjective Date of Service: 01/25/19 Interval History: No acute events overnight. afebrile. Slept very well 930pm having some anxiety now, stomach feels upset with some slight nausea tube feeds were increased from 35 cc to 40 cc this early AM. 80cc residual no labs since 01/22 spoke with Blaskatja Holloway at bedside and Matthew via speaker phone. Family History: Unchanged from Admission Social History: Unchanged from Admission Past Medical History: Unchanged from Admission Objective Active Medications: Acetaminophen (Tylenol Adult Liq*) 650 mg PEG TUBE Q8H PRN PRN Reason: PAIN - MODERATE Last Admin: 01/25/19 07:59 Dose: 650 mg Carbidopa/Levodopa (Sinemet 25/100 Tab(*)) 3 tab PEG TUBE 0830,1300,1830 [facility] Last Admin: 01/25/19 07:46 Dose: 3 tab Clonazepam (Klonopin Tab(*)) 0.5 mg PEG TUBE TID [facility] Last Admin: 01/25/19 07:50 Dose: 0.5 mg Cyanocobalamin (Vitamin B12 Tab*) 500 mcg PEG TUBE BID [facility] Last Admin: 01/25/19 07:47 Dose: 500 mcg Heparin Sodium (Porcine) (Heparin Flush Picc/Ml/Cvc(*)) 1 - 3 ml FLUSH 0600, 1800 [facility]; Protocol Last Admin: 01/25/19 05:58 Dose: 2 ml Lactulose (Lactulose*) 15 ml PEG TUBE TID [facility] Last Admin: 01/25/19 07:46 Dose: 15 ml Lamotrigine (Lamictal Tab(*)) 100 mg PEG TUBE BID [facility] Last Admin: 01/25/19 07:51 Dose: 100 mg [place] Citrate ([place] Liq*) 450 mg PEG TUBE BEDTIME [facility] Last Admin: 01/24/19 20:23 Dose: 450 mg Mometasone Furoate/Formoterol Fumar (Dulera 200/5 Mdi*) 2 puff INH BID [facility]; Protocol Last Admin: 01/25/19 07:14 Dose: 2 puff Ondansetron HCl (Zofran Inj*) 4 mg IV Q6H PRN PRN Reason: NAUSEA Last Admin: 01/20/19 08:11 Dose: 4 mg Sertraline HCl (Zoloft*) 150 mg PEG TUBE QAM [facility] Last Admin: 01/25/19 07:48 Dose: 150 mg Tiotropium [place] (Spiriva Respimat 2.5 Mcg) 2 puff INH DAILY [facility] Last Admin: 01/25/19 07:15 Dose: 2 puff Vital Signs - 8 hr 01/25/19 01/25/19 01/25/19 07:50 11:31 11:55 Temperature 97.8 F 98.2 F Pulse Rate 65 73 Respiratory 18 18 18 Rate Blood Pressure 119/64 112/65 (mmHg) O2 Sat by Pulse 98 100 Oximetry Oxygen Devices in Use Now: None Appearance: NAD, concerned look on face. chronically ill appearing. Neck: NL Appearance and Movements; NL JVP Respiratory: Symmetrical Chest Expansion and Respiratory Effort Cardiovascular: NL Sounds; No Murmurs; No JVD Abdominal: - - PEG tube without erythema. no flinching to palpations, soft, nondistended. Extremities: No Edema Skin: No Rash or Ulcers Neurological: Alert and Oriented x 3 Nutrition: TPN - Nutrition: Malnutrition Diagnosis/Plan Malnutrition Assessment by Registered Dietitian: Malnutrition Assessment Clinical Characteristics Chronic,Severe Malnutrition Assessment: Muscle Wasting - Temporal muscle (moderate) Criteria Inadequate Oral Intake - Pt reports having poor appetite, consistent w/ visits x1 mo. - Anticipate meeting <75% nutrient needs >1 mo. ( severe) Unintentional Weight Loss - Current wt 112lb, prev wt on record 126lb (11/2018) - 11.11% loss x1 mo (severe) Malnutrition Assessment: Nutritional Supplementals/Nourishments - Pt not Interventions amenable to scheduled nourishments/supplements at this time; will continue to monitor intakes and offer again as indicated. GI Related - Recommend continuing antiemetics PRN and standing bowel meds; will monitor GI s/ sx for impact on intake. Malnutrition Assessment: Goals 1) Pt will tolerate least restrictive dietary textures w/o difficulty chewing/swallowing or exac of GI s/sx 2) Adequate po intake to replete lean body mass , support wt gain as desired and hydration status 3) Improve fluid/electrolyte balance w/ adequate po intake and medical mgmt of hypercalcemia 4) Improve bowel regularity w/ adequate po intake and standing bowel meds w/o exac of constipation/development of diarrhea Result Diagrams: 01/22/19 05:13 01/22/19 05:13 Microbiology and Other Data: Microbiology 01/19/19 14:00 Cerebral Spinal Fluid CSF Gram Stain (Tube 3) - Final 01/19/19 14:00 Cerebral Spinal Fluid CSF Culture - Final No Growth Day 4 01/22/19 10:00 Stool Stool Occult Blood (TRICIA) - Final 01/13/19 08:17 Blood Venous Aerobic Blood Culture - Final No Growth Day 5 01/13/19 08:17 Blood Venous Anaerobic Blood Culture - Final No Growth Day 5 01/13/19 08:04 Blood Venous Aerobic Blood Culture - Final No Growth Day 5 01/13/19 08:04 Blood Venous Anaerobic Blood Culture - Final No Growth Day 5 01/13/19 19:15 Urine Urine Culture - Final Klebsiella Pneumoniae Assess/Plan/Problems-Billing Assessment: 74W with advanced PD, possible progressive supranuclear palsy, recurrent hypercalcemia related to lithium use and hyperparathyroidism, bipolar, who re- presents with nausea, vomiting and not tolerating PO. Now s/p PEG tube placement , with med optimization. - Patient Problems (1) Hyperparathyroidism due to lithium therapy Current Visit: Yes Status: Acute Priority: High Code(s): E21.1 - SECONDARY HYPERPARATHYROIDISM, NOT ELSEWHERE CLASSIFIED SNOMED Code(s): 823520497 Comment: Hypercalcemia resolved at this point. Possibly caused presenting symptoms. - Dr. Pastor would consider outpatient surgery, 3-1/2 gland parathyroidectomy - Appreciate Dr. Mark input - was on Cinacalcet, then got zoledronic acid x 1, with excellent response recheck Calcium today given anxiety, nausea, last on 01/22 (2) Abdominal pain Current Visit: Yes Status: Acute Code(s): R10.9 - UNSPECIFIED ABDOMINAL PAIN SNOMED Code(s): 63743113 Comment: c/o of abd discomfort (lower), may be related to increasing TF. pause increase for now. check labs, check residuals. had large BM (3) FTT (failure to thrive) in adult Current Visit: Yes Status: Acute Priority: Medium Comment: Likely from progression of neurodegenerative disorder. - responded well to TPN, now s/p PEG and increasing tube feeds - s/p marinol trials - asked for transfer to [facility]/[place]. They declined acute transfer. - s/p Pall Care c/s (4) Malnutrition Current Visit: Yes Status: Acute Code(s): E46 - UNSPECIFIED PROTEIN-CALORIE MALNUTRITION SNOMED Code(s): 79227895 Comment: Severe -Patient has severe malnutirtion d/t nausea and vomiting , no appeitite, advanced PD vs supranuclear palsy and hyperparathyroidism. -s/p PEG with goal jevity 55cc/hr (currently 40cc/hr) (5) Parkinson disease Current Visit: Yes Status: Acute Code(s): G20 - PARKINSON'S DISEASE SNOMED Code(s): 33070616 Comment: possible progressive supranuclear palsy - continue Sinimet - appreciate neuro recs attempt to get to Dr. Perez appointment in [place] on 01/29. (6) Nausea & vomiting Current Visit: No Status: Acute Code(s): R11.2 - NAUSEA WITH VOMITING, UNSPECIFIED SNOMED Code(s): 56007765 Comment: halt increase in TF, consider putting back on scopolamine patch zofran consider cutting back on sertraline. labs today. (7) Anemia Current Visit: Yes Status: Chronic Priority: Medium Code(s): D64.9 - ANEMIA, UNSPECIFIED SNOMED Code(s): 939341306 Comment: Reviewed EGD this month, colonoscopy 2 years ago. Workup so far shows anemia of chronic disease. FOBT negative. Good response to transfusion 01/21. Suspect hemodiluation after starting TPN. recheck CBC today. (8) Bipolar disorder Current Visit: Yes Status: Chronic Priority: High Comment: - Discussed with , difficult to find alternative to lithium - decreased [place], continue Lamotrigine, clonazepam 0.5mg TID, sertraline - was stopped off mirtazipine this admission. 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 Priority: Medium Code(s): G98.8 - OTHER DISORDERS OF NERVOUS SYSTEM; C80.1 - MALIGNANT (PRIMARY) NEOPLASM, UNSPECIFIED SNOMED Code(s): 52077700 Comment: -Ordered appropriate studies for CSF -AMS and neurologic decline -f/u paraneoplastic CSF panel sent to [place] -Possible Advanced parkinsons disease/ neurodegenerative disorder with decline (10) Full code status Current Visit: No Status: Acute Code(s): Z78.9 - OTHER SPECIFIED HEALTH STATUS SNOMED Code(s): 938749306 Comment: (11) COPD (chronic obstructive pulmonary disease) Current Visit: No Status: Chronic Priority: High Code(s): J44.9 - CHRONIC OBSTRUCTIVE PULMONARY DISEASE, UNSPECIFIED SNOMED Code(s): 40407947 Comment: - asymptomatic - continue Spiriva, Symbicort (12) Dementia Current Visit: No Status: Chronic Priority: High Code(s): F03.90 - UNSPECIFIED DEMENTIA WITHOUT BEHAVIORAL DISTURBANCE SNOMED Code(s): 48976621 Comment: - Continue with supportive care, (13) HTN (hypertension) Current Visit: No Status: Chronic Priority: High Code(s): I10 - ESSENTIAL (PRIMARY) HYPERTENSION SNOMED Code(s): 98449015 Comment: - Controlled. home propranolol has been held (14) DVT prophylaxis Current Visit: Yes Status: Acute Priority: Low Code(s): PCU6829 - SNOMED Code(s): 397755545 Comment: - SCD's Status and Disposition: inpatient, once TFs at goal plan is to discharge to [facility] for further rehab.
[2019-01-25 14:14] LABS: ABS Eosinophils 0.2 10^3/ul (0-0.6); ABS Lymphocytes 1.1 10^3/ul (1.0-4.8); ABS Monocytes 0.7 10^3/ul (0-0.8); Eosinophil % 3.5 %; Hematocrit 27 % (35-47); Hemoglobin 8.8 g/dL (12.0-16.0); Lymphocyte % 15.1 %; Mean Corpuscular HGB Conc 33 g/dL (31-36); Mean Corpuscular Hemoglobin 30 pg (27-31); Mean Corpuscular Volume 91 fL (80-97); Platelet Count 324 10^3/uL (150-450); Red Blood Count 2.97 10^6 /uL (3.70-4.87); Red Cell Distribution Width 23 % (10-15)
[2019-01-25 14:20] LABS: Albumin 3.4 g/dL (3.2-5.2); Albumin/Globulin Ratio 1.6 (1-3); Calcium 8.9 mg/dL (8.6-10.3); EGFR African American 146.7 (>60); EGFR Non-African American 121.3 (>60); Globulin 2.1 g/dL (2-4); Magnesium 1.7 mg/dL (1.9-2.7); Phosphorus 2.8 mg/dL (2.5-5.0); Potassium 4.1 mmol/L (3.5-5.0); Total Bilirubin 0.3 mg/dL (0.2-1.0); Total Protein 5.5 g/dL (6.4-8.9)
[2019-01-25 14:48] LABS: Polychromasia 1+
[2019-01-25] MEDS ORDERED: Magnesium Sulfate 2 GM IV* 2 GM/50 ML BAG IVPB ONE (14:53)
[2019-01-25] MEDS: Lithium LIQ* 300 MG/5 ML UDC PEG TUBE SCH (20:25)
[2019-01-26] MEDS: SPIRIVA Respimat* (tiotropium) 2.5 mcg/inh Inhaler INH SCH (07:04)
[2019-01-26] MEDS: Mometasone/Formoter 200/5 MDI INH SCH ×2 (07:04→19:58)
[2019-01-26] MEDS: Lactulose* 15 ML UDC PEG TUBE SCH ×3 (10:20→21:30)
[2019-01-26] MEDS: Sertraline* 100 MG TAB PEG TUBE SCH (10:20)
[2019-01-26] MEDS: clonazePAM TAB(*) 0.5 MG PEG TUBE SCH ×3 (10:20→18:06)
[2019-01-26] MEDS: Carbidopa/Levodop 25/100 MG TAB(*) PEG TUBE SCH ×3 (10:21→18:06)
[2019-01-26] MEDS: lamoTRIgine TAB(*) 100 MG PEG TUBE SCH ×2 (10:21→21:26)
[2019-01-26] MEDS: Cyanocobalamin TAB* 500 MCG PEG TUBE SCH ×2 (10:21→21:26)
[2019-01-26] MEDS: Acetaminophen ADULT LIQ* 650 MG/20.3 ML UDC PEG TUBE PRN (14:22)
--- NOTE | 2019-01-26 15:29 | PN ---
Subjective Date of Service: 01/26/19 Interval History: No acute events overnight, afebrile TF increased to 45 cc/hr Jevity this AM, 100 cc residual this AM Working with PT this afternoon. Sat on side of bed Spoke with Son Jake and on speaker phone with Matthew. Matthew thinks she had good night but woke up fatigued. Takes about 1 hour for confusion to resolve after waking. Asking for klonopin to be closer to 0830. Some abdominal pain, no nausea or vomiting. Had seen Dr. Torres for about 3-4 years, before that Dr. Jamie Corea for 3-4 [address] before that [address] Tuttle for 20+ years. Matthew estimates she has been on lithium for estimated 40 years and zoloft 10+ There was attempt to pull espinoza during admission before last and she failed to void. Family History: Unchanged from Admission Social History: Unchanged from Admission Past Medical History: Unchanged from Admission Objective Active Medications: Acetaminophen (Tylenol Adult Liq*) 650 mg PEG TUBE Q8H PRN PRN Reason: PAIN - MODERATE Last Admin: 01/26/19 14:22 Dose: 650 mg Carbidopa/Levodopa (Sinemet 25/100 Tab(*)) 3 tab PEG TUBE 0830,1300,1830 PENDING SALE TO [facility] Last Admin: 01/26/19 14:22 Dose: 3 tab Clonazepam (Klonopin Tab(*)) 0.5 mg PEG TUBE TID PENDING SALE TO [facility] Last Admin: 01/26/19 14:22 Dose: 0.5 mg Cyanocobalamin (Vitamin B12 Tab*) 500 mcg PEG TUBE BID PENDING SALE TO [facility] Last Admin: 01/26/19 10:21 Dose: 500 mcg Heparin Sodium (Porcine) (Heparin Flush Picc/Ml/Cvc(*)) 1 - 3 ml FLUSH 0600, 1800 PENDING SALE TO [facility]; Protocol Last Admin: 01/26/19 05:28 Dose: 1 ml Lactulose (Lactulose*) 15 ml PEG TUBE TID PENDING SALE TO [facility] Last Admin: 01/26/19 14:21 Dose: 15 ml Lamotrigine (Lamictal Tab(*)) 100 mg PEG TUBE BID PENDING SALE TO [facility] Last Admin: 01/26/19 10:21 Dose: 100 mg [place] Citrate ([place] Liq*) 450 mg PEG TUBE BEDTIME PENDING SALE TO [facility] Last Admin: 01/25/19 20:25 Dose: 450 mg Mometasone Furoate/Formoterol Fumar (Dulera 200/5 Mdi*) 2 puff INH BID PENDING SALE TO [facility]; Protocol Last Admin: 01/26/19 07:04 Dose: 2 puff Ondansetron HCl (Zofran Inj*) 4 mg IV Q6H PRN PRN Reason: NAUSEA Last Admin: 01/20/19 08:11 Dose: 4 mg Sertraline HCl (Zoloft*) 150 mg PEG TUBE QAM PENDING SALE TO [facility] Last Admin: 01/26/19 10:20 Dose: 150 mg Tiotropium [place] (Spiriva Respimat 2.5 Mcg) 2 puff INH DAILY PENDING SALE TO [facility] Last Admin: 01/26/19 07:04 Dose: 2 puff Vital Signs - 8 hr 01/26/19 01/26/19 01/26/19 07:38 08:00 10:20 Temperature 98.7 F Pulse Rate 73 Respiratory 16 16 17 Rate Blood Pressure 106/59 (mmHg) O2 Sat by Pulse 99 98 Oximetry 01/26/19 01/26/19 01/26/19 11:03 12:20 14:22 Temperature 97.4 F Pulse Rate 69 Respiratory 16 16 16 Rate Blood Pressure 120/71 (mmHg) O2 Sat by Pulse 98 Oximetry Oxygen Devices in Use Now: None Appearance: NAD, slight agitation with attempts to sit on side of bed. Eyes: No Scleral Icterus Ears/Nose/Mouth/Throat: NL Teeth, Lips, Gums Respiratory: Symmetrical Chest Expansion and Respiratory Effort Cardiovascular: NL Sounds; No Murmurs; No JVD, RRR Abdominal: - - s/p PEG tube w/o erythema or tenderness. Skin: No Rash or Ulcers Neurological: - - speaks 2-3 words at time. GARRIDO Lines/Tubes/Other Access: Clean, Dry and Intact Espinoza - yellow urine. , Clean, Dry and Intact Percuteneous Feeding Tube Nutrition: Taking PO's - Nutrition: Malnutrition Diagnosis/Plan Malnutrition Assessment by Registered Dietitian: Malnutrition Assessment Clinical Characteristics Chronic,Severe Malnutrition Assessment: Muscle Wasting - Temporal muscle (moderate) Criteria Inadequate Oral Intake - Pt reports having poor appetite, consistent w/ visits x1 mo. - Anticipate meeting <75% nutrient needs >1 mo. ( severe) Unintentional Weight Loss - Current wt 112lb, prev wt on record 126lb (11/2018) - 11.11% loss x1 mo (severe) Malnutrition Assessment: Nutritional Supplementals/Nourishments - Pt not Interventions amenable to scheduled nourishments/supplements at this time; will continue to monitor intakes and offer again as indicated. GI Related - Recommend continuing antiemetics PRN and standing bowel meds; will monitor GI s/ sx for impact on intake. Malnutrition Assessment: Goals 1) Pt will tolerate least restrictive dietary textures w/o difficulty chewing/swallowing or exac of GI s/sx 2) Adequate po intake to replete lean body mass , support wt gain as desired and hydration status 3) Improve fluid/electrolyte balance w/ adequate po intake and medical mgmt of hypercalcemia 4) Improve bowel regularity w/ adequate po intake and standing bowel meds w/o exac of constipation/development of diarrhea Result Diagrams: 01/25/19 13:30 01/25/19 13:30 Microbiology and Other Data: Microbiology 01/19/19 14:00 Cerebral Spinal Fluid CSF Gram Stain (Tube 3) - Final 01/19/19 14:00 Cerebral Spinal Fluid CSF Culture - Final No Growth Day 4 01/22/19 10:00 Stool Stool Occult Blood (TRICIA) - Final 01/13/19 08:17 Blood Venous Aerobic Blood Culture - Final No Growth Day 5 01/13/19 08:17 Blood Venous Anaerobic Blood Culture - Final No Growth Day 5 01/13/19 08:04 Blood Venous Aerobic Blood Culture - Final No Growth Day 5 01/13/19 08:04 Blood Venous Anaerobic Blood Culture - Final No Growth Day 5 01/13/19 19:15 Urine Urine Culture - Final Klebsiella Pneumoniae Assess/Plan/Problems-Billing Assessment: 74W with advanced PD, possible progressive supranuclear palsy, recurrent hypercalcemia related to lithium use and hyperparathyroidism, bipolar, who re- presents with nausea, vomiting and not tolerating PO. Now s/p PEG tube placement , with med optimization. Planned Cuming swing. - Patient Problems (1) Hyperparathyroidism due to lithium therapy Current Visit: Yes Status: Acute Priority: High Code(s): E21.1 - SECONDARY HYPERPARATHYROIDISM, NOT ELSEWHERE CLASSIFIED SNOMED Code(s): 362955786 Comment: Hypercalcemia resolved at this point. Possibly caused presenting symptoms. - Dr. Pastor would consider outpatient surgery, 3-1/2 gland parathyroidectomy - Appreciate Dr. Mark input - was on Cinacalcet, then got zoledronic acid x 1, with excellent response Calcium stable at 8.9 01/25 (2) Abdominal pain Current Visit: Yes Status: Acute Code(s): R10.9 - UNSPECIFIED ABDOMINAL PAIN SNOMED Code(s): 16795869 Comment: intermittent. may be related to TF increases which have been rising about 5cc a day. last residual 100. had two medium BMs 01/25. (3) FTT (failure to thrive) in adult Current Visit: Yes Status: Acute Priority: Medium Comment: Likely from progression of neurodegenerative disorder. - responded well to TPN, now s/p PEG and increasing tube feeds - s/p marinol trials - asked for transfer to [facility]. They declined acute transfer. - s/p Pall Care c/s (4) Malnutrition Current Visit: Yes Status: Acute Code(s): E46 - UNSPECIFIED PROTEIN-CALORIE MALNUTRITION SNOMED Code(s): 99050950 Comment: Severe -Patient has severe malnutirtion d/t nausea and vomiting , no appeitite, advanced PD vs supranuclear palsy and hyperparathyroidism. -s/p PEG with goal jevity 55cc/hr (currently 45cc/hr) (5) Parkinson disease Current Visit: Yes Status: Acute Code(s): G20 - PARKINSON'S DISEASE SNOMED Code(s): 59184358 Comment: possible progressive supranuclear palsy - continue Sinimet - appreciate neuro recs attempt to get to Dr. Perez appointment in [place] on 01/29. (6) Nausea & vomiting Current Visit: No Status: Acute Code(s): R11.2 - NAUSEA WITH VOMITING, UNSPECIFIED SNOMED Code(s): 03899244 Comment: resolved zofran prn consider cutting back on sertraline. (7) Anemia Current Visit: Yes Status: Chronic Priority: Medium Code(s): D64.9 - ANEMIA, UNSPECIFIED SNOMED Code(s): 583557137 Comment: Reviewed EGD this month, colonoscopy 2 years ago. Workup so far shows anemia of chronic disease. FOBT negative. Good response to transfusion 01/21. Suspect hemodiluation after starting TPN. stable CBC 01/25. (8) Bipolar disorder Current Visit: Yes Status: Chronic Priority: High Comment: - Outpatient Psychiatrist is DrGita Member. reported difficult to find alternative to lithium - decreased [place], continue Lamotrigine, clonazepam 0.5mg TID, sertraline - was stopped off mirtazipine this admission. - she has had long standing hypercalcemia that could have contribued to psychiatric symptoms and might make sense to pare back the polypharmacy (? 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 Priority: Medium Code(s): G98.8 - OTHER DISORDERS OF NERVOUS SYSTEM; C80.1 - MALIGNANT (PRIMARY) NEOPLASM, UNSPECIFIED SNOMED Code(s): 05535638 Comment: -Ordered appropriate studies for CSF -AMS and neurologic decline -f/u paraneoplastic CSF panel sent to [facility] -Possible Advanced parkinsons disease/ neurodegenerative disorder with decline (10) Full code status Current Visit: No Status: Acute Code(s): Z78.9 - OTHER SPECIFIED HEALTH STATUS SNOMED Code(s): 643334977 Comment: (11) COPD (chronic obstructive pulmonary disease) Current Visit: No Status: Chronic Priority: High Code(s): J44.9 - CHRONIC OBSTRUCTIVE PULMONARY DISEASE, UNSPECIFIED SNOMED Code(s): 32959016 Comment: - asymptomatic - continue Spiriva, Symbicort (12) Dementia Current Visit: No Status: Chronic Priority: High Code(s): F03.90 - UNSPECIFIED DEMENTIA WITHOUT BEHAVIORAL DISTURBANCE SNOMED Code(s): 41589555 Comment: - Continue with supportive care, (13) HTN (hypertension) Current Visit: No Status: Chronic Priority: High Code(s): I10 - ESSENTIAL (PRIMARY) HYPERTENSION SNOMED Code(s): 02151828 Comment: - Controlled. home propranolol has been held (14) DVT prophylaxis Current Visit: Yes Status: Acute Priority: Low Code(s): [id number] - SNOMED Code(s): 171007841 Comment: - SCD's Status and Disposition: inpatient, once TFs at goal plan is to discharge to [facility] for further rehab.
[2019-01-26] MEDS: Lithium LIQ* 300 MG/5 ML UDC PEG TUBE SCH (21:31)
[2019-01-27] MEDS: SPIRIVA Respimat* (tiotropium) 2.5 mcg/inh Inhaler INH SCH (08:35)
[2019-01-27] MEDS: Mometasone/Formoter 200/5 MDI INH SCH (08:35)
[2019-01-27] MEDS: Sertraline* 100 MG TAB PEG TUBE SCH (08:47)
[2019-01-27] MEDS: clonazePAM TAB(*) 0.5 MG PEG TUBE SCH ×2 (08:47→13:43)
[2019-01-27] MEDS: Carbidopa/Levodop 25/100 MG TAB(*) PEG TUBE SCH ×2 (08:47→13:43)
[2019-01-27] MEDS: lamoTRIgine TAB(*) 100 MG PEG TUBE SCH (08:47)
[2019-01-27] MEDS: Lactulose* 15 ML UDC PEG TUBE SCH ×2 (08:48→13:43)
[2019-01-27] MEDS: Cyanocobalamin TAB* 500 MCG PEG TUBE SCH (08:48)
[2019-01-27 12:00] VITALS: BP 108/52
--- NOTE | 2019-01-27 14:17 | DS ---
DATE OF ADMISSION: 01/13/2019. DATE OF DISCHARGE: 01/27/2019. ADMITTING PROVIDER: Char Mclaughlin NP. PRIMARY CARE PHYSICIAN: Dr. Angela Leal. CONSULTING BANK OPERATIONS OFFICER: Dr. Denzel Mark. CONSULTING GENERAL AND THYROID SURGERY: Dr. Wendy Pastor. CONSULTING NEWSPAPER EDITOR: Dr. Bautista. CONSULTING NEUROLOGISTS: Dr. Sharp and Dr. Camacho. CONSULTING PALLIATIVE CARE PROVIDER: Dr. Pascale Pereyra. ATTENDING PHYSICIAN ON THE DAY OF DISCHARGE: Dr. Artur Washington. CHIEF COMPLAINT: Weakness, nausea, vomiting, failure to thrive. PRINCIPAL DIAGNOSES: Hypercalcemia secondary to hyperparathyroidism, severe Parkinson's disease versus supranuclear palsy, failure to thrive with nausea and vomiting secondary to hypercalcemia, severe bipolar disorder. HISTORY OF PRESENT ILLNESS/HOSPITAL COURSE: Cyndi Nelson is a 74-year-old female with a past medical history of hypercalcemia, severe Parkinson's disease , bipolar, anxiety, depression, neurogenic bladder, myotonic cognitive impairment, COPD, frequent UTI's, and hyperparathyroidism who presented with nausea, vomiting, decreased appetite, and weakness. Please see H&P from Char Mclaughlin for full details, but this had been a recurring problem with a recent admission from December 30 to January 05 as well. She has had a normal gastric emptying study that prior admission and had been increased on her PPI to twice a day. She was again found to be hypercalcemic, her level was 11.[address] Mark of Endocrinology was consulted along with Dr. Pastor of General Surgery/Thyroid Surgery. Dr. Mark recommended a parathyroid localizing study which demonstrated on 01/15 a potential parathyroid adenoma at the level of superior left thyroid lobe or adjacent to the thyroid lobe; however, no corresponding nodule was evident on CT imaging of the CT neck on 01/14. The patient was given 4 mg of Zoledronic acid on January 17 and her sodiums declined to a low of 8.3 and on discharge was 8.9. Because of her failure to thrive, she was not considered a good candidate for parathyroidectomy (and also because her nausea, vomiting and failure to thrive was thought to be multifactorial). There was recommendations to consider a re-evaluation as an outpatient. The surgery would have to be likely a subtotal parathyroidectomy. Etiology was likely her long-standing [place] use of 30+ years. She was evaluated by Dr. Bautista given her failure to thrive and a PEG tube was placed on January 21 and she was seen by Nutrition and her tube feeds were slowly titrated up with a goal feed of 55 cc continuous. She did have some abdominal discomfort with these increasing tube feeds. The highest she got was 45 cc an hour on the day prior to discharge and had a residual of 200 at that time and was backed down to 40 cc an hour. Further up titrations are planned as an outpatient versus consideration for a higher calorie such as TwoCal which would require lower volume potentially if she was not able to reach that volume/ nutrition goal as an outpatient. She was seen in consultation by the Neurology team, Dr. Sharp and Dr. Camacho, and there was recommendation to follow-up with her movement disorder specialist at the [facility], Dr. Reinaldo Perez. She has a long-standing scheduled appointment on January 29 at 2:30 p.m. in [place] that should be attended. She has a history of neurogenic bladder and presented with a Capellan catheter. She had a urine culture back on January 13 which grew klebsiella pneumonia that was sensitive to Ceftriaxone and she received seven days of that. She has no leukocytosis on admission and was afebrile throughout the course. She has severe bipolar disease and follows with Dr. Torres as an outpatient. There was some consideration that her long-standing hypercalcemia could be worsening her anxiety and mental state and there was a desire to reduce polypharmacy and her Remeron was stopped and her [place] was decreased from 300 b.i.d. to 450 at night. She did better when her Klonopin 0.5 mg per PEG tube t.i.d. was given first thing upon waking. She had a paraneoplastic panel sent that is still pending. There were CSF studies drawn with glucose 81, total protein 32, Lyme PCR was negative, cryptococcus antigen, HSV I and II were negative. The CSF was negative for cells on cytology. No cell counts were sent unfortunately. She had a B12 greater than 1450. She has SPEP with evidence of hypogammaglobulinemia. Dr. Camacho evaluated the outpatient MRI done October 2018 and it was felt that she has restricted extraocular muscle movement and there was concern that she has progressive supranuclear palsy syndrome versus advanced Parkinson's disease. The normal CSF protein suggested against an underlying autoimmune, infectious, or inflammatory process. The patient was seen by Dr. Pascale Pereyra for Palliative Care consult. Information was provided, but they wanted to pursue further medical treatments as described above. She was was evaluated by the Wound Care team on 01/27 for sacral skin shearing wound and bilateral ischium superficial wounds. There was recommendation for barrier cream and frequent turning and repositioning. MEDICATIONS ON DISCHARGE: 1. Tylenol 500 mg per PEG tube q.6 hours prn. 2. Symbicort two puffs inhaled b.i.d. 3. Carbidopa/Levodopa 25/100 three tabs per PEG tube at 0830, 1300, and 1830. 4. Clonazepam 0.5 mg per PEG tube t.i.d. 5. Vitamin B12 500 mcg per PEG tube b.i.d. 6. Lactulose 15 ml per PEG tube t.i.d. 7. Lamotrigine 100 mg per PEG tube b.i.d. 8. Sertraline 150 mg per PEG tube q.a.m. 9. Spiriva one capsule inhaled daily. 10. Aspirin 81 mg daily. 11. Docusate 100 mg per PEG tube b.i.d. 12. Probiotic per PEG tube daily. 13. [place] 450 mg in liquid formulation per PEG tube nightly. 14. Magnesium Oxide 400 mg per PEG tube daily. 15. Nitrofurantoin 100 mg daily per PEG tube. 16. Omeprazole 40 mg per PEG tube daily. 17. Zofran 4 mg p.o. q.6 hours prn. 18. MiraLax 17 p.o. b.i.d. 19. Flomax 0.4 mg per PEG tube at bedtime. LABORATORY DATA: Last labs on January 25: Hemoglobin 8.8, hematocrit 27; creatinine 0.5, sodium 134, carbon dioxide 21, glucose 106, magnesium 1.7 (this was repleted), AST 51, alk phos 187, AST 31, total protein 5.5. FOLLOW-UP: The patient should follow-up with PCP, Dr. Angela Leal, within seven days of discharge from [facility]. She should follow-up with Dr. Wendy Pastor, Dr. Dalton Bautista, Dr. Mark as needed. She does have a follow-up with neurologist, Dr. Reinaldo Perez of [facility] on January 29 at 2:30 p.m. She should reconnect with Dr. Los Member, or a new psychiatrist as I believe he is retiring, given change in her medications. VNS services were recommended after discharge from [facility]. Labs to follow-up on include the paraneoplastic panel of the CSF. DISPOSITION: To [facility]. CONDITION ON DISCHARGE: Improved, but overall guarded. TIME SPENT ON DISCHARGE: 55 minutes. [id number]/CPS #: [id number] NEMO
--- NOTE | 2019-01-27 18:13 | CONSULT ---
Subjective Date of Service: 01/27/19 Interval History: Ms. Nelson is a 74 yo female with PMH significant for hypercalcemia, Parkinson 's disease, Bipolar, depression, anxiety, hx neurogenic bladder with chronic indwelling urinary catheter, myotonic cognitive impairment, COPD, recurrent UTIs , and hyperparathyroidism; she presented to the hospital with complaints of weakness, nausea, and vomiting. She was admitted for weakness. She developed skin breakdown on her sacrum and right ischium during her hospitalization. Patient seen and examined at bedside. Family History: Unchanged from Admission Social History: Unchanged from Admission Past Medical History: Unchanged from Admission Review of Systems - Measurements Intake and Output: Intake and Output Last 24 Hours 01/25/19 01/26/19 01/27/19 01/28/19 06:59 06:59 06:59 06:59 Intake Total 1770 3919 2104 1999 Output Total 450 1850 2750 2150 Balance 1320 2069 -646 -151 Weight 134 lb 12.8 oz Intake: Oral 800 0 960 960 Tube Feeding 639 2476 664 559 Tube Feeding Flush Amount 331 1443 480 480 Output: Urine 1300 Capellan 680 671 4221 2150 Tube Feeding Residual 0 0 0 Amount Wasted Other: Estimated Void Large Date of Last Bowel 01/27/19 Movement # Bowel Movements 1 0 0 1 Estimated Stool Amount Large Medium Medium - Review of Systems Constitutional Symptoms: Negative: Fever, Other - Chills Dermatology: Positive: Other - Wounds to buttocks Objective Active Medications: Acetaminophen (Tylenol Adult Liq*) 650 mg PEG TUBE Q8H PRN Reason: PAIN - MODERATE Carbidopa/Levodopa (Sinemet 25/100 Tab(*)) 3 tab PEG TUBE 0830,1300,1830 EDVIN Clonazepam (Klonopin Tab(*)) 0.5 mg PEG TUBE TID ED[facility]IN Cyanocobalamin (Vitamin B12 Tab*) 500 mcg PEG TUBE BID ED[facility] Heparin Sodium (Porcine) (Heparin Flush Picc/Ml/Cvc(*)) 1 - 3 ml FLUSH 0600, 1800 [facility] Lactulose (Lactulose*) 15 ml PEG TUBE TID [facility] Lamotrigine (Lamictal Tab(*)) 100 mg PEG TUBE BID ED[facility] [place] Citrate ([place] Liq*) 450 mg PEG TUBE BEDTIME ED[facility] Mometasone Furoate/Formoterol Fumar (Dulera 200/5 Mdi*) 2 puff INH BID [facility]; Protocol Ondansetron HCl (Zofran Inj*) 4 mg IV Q6H PRN Reason: NAUSEA Sertraline HCl (Zoloft*) 150 mg PEG TUBE QAM ED[facility]IN Tiotropium [place] (Spiriva Respimat 2.5 Mcg) 2 puff INH DAILY ED[facility]IN Vital Signs - 8 hr 01/27/19 01/27/19 01/27/19 10:47 11:18 13:43 Temperature 97.5 F Pulse Rate 79 Respiratory 17 16 16 Rate Blood Pressure 108/52 (mmHg) O2 Sat by Pulse 97 Oximetry Oxygen Devices in Use Now: None Appearance: NAD, laying in bed Ears/Nose/Mouth/Throat: Mucous Membranes Moist Respiratory: Symmetrical Chest Expansion and Respiratory Effort Skin: - - See skin notes below Neurological: Alert and Oriented x 3 - Nutrition: Malnutrition Diagnosis/Plan Malnutrition Assessment by Registered Dietitian: Malnutrition Assessment Clinical Characteristics Chronic,Severe Malnutrition Assessment: Muscle Wasting - Temporal muscle (moderate) Criteria Inadequate Oral Intake - Pt reports having poor appetite, consistent w/ visits x1 mo. - Anticipate meeting <75% nutrient needs >1 mo. ( severe) Unintentional Weight Loss - Current wt 112lb, prev wt on record 126lb (11/2018) - 11.11% loss x1 mo (severe) Malnutrition Assessment: Nutritional Supplementals/Nourishments - Pt not Interventions amenable to scheduled nourishments/supplements at this time; will continue to monitor intakes and offer again as indicated. GI Related - Recommend continuing antiemetics PRN and standing bowel meds; will monitor GI s/ sx for impact on intake. Malnutrition Assessment: Goals 1) Pt will tolerate least restrictive dietary textures w/o difficulty chewing/swallowing or exac of GI s/sx 2) Adequate po intake to replete lean body mass , support wt gain as desired and hydration status 3) Improve fluid/electrolyte balance w/ adequate po intake and medical mgmt of hypercalcemia 4) Improve bowel regularity w/ adequate po intake and standing bowel meds w/o exac of constipation/development of diarrhea Result Diagrams: 01/25/19 13:30 01/25/19 13:30 Skin Deviation Note - Skin Deviation Findings Sacrum and bilateral ischium - There is a superficial area to the sacrum, measures 2.5 cm x 1 cm x 0.1 cm. The wound base is healed with no open skin, there is superficial skin peeling of the surrounding skin, no drainage. Right ischium with area of deep purple discoloration, measures 1.5 cm x 1 cm. The left ischium with area of slight dark purple discoloration. The surrounding skin is intact, no drainage. Wound Problem/Plan Assessment: Ms. Nelson is a 74 yo female with PMH significant for hypercalcemia, Parkinson 's disease, Bipolar, depression, anxiety, hx neurogenic bladder with chronic indwelling urinary catheter, myotonic cognitive impairment, COPD, recurrent UTIs , and hyperparathyroidism; she presented to the hospital with complaints of weakness, nausea, and vomiting. 1. Superficial sacral wound. Suspect this represents a shearing injury. Recommend using a lifting device to move in bed and frequent turning and repositioning. Use barrier cream as needed to the area. 2. Bilateral ischium wounds. Recommend using barrier cream to the area as needed. Frequent turning and repositioning. 3. Malnutrition. As evidenced by temporal muscle wasting, inadequate oral intake , and unintentional weight loss. Has started tube feedings to supplement oral diet. 4. Parkinson's disease with neurogenic bladder and chronic indwelling urinary catheter 5. Diet. Regular diet with tube feeding. 6. Code Status. Full Code Status. 7. Disposition. Inpatient, disposition per primary medicine team. Is Patient a Wound Clinic Patient: No Counseling and/or Coordination of Care Minutes: 25 Points of Discussion: TIME SPENT: Time spent for this wound consultation was 25 minutes and 15 minutes was spent at bedside with the patient and discussing past medical history; assessing, measuring, and photographing wounds. Attending: Bhumika Ferguson
[2019-01-31 16:19] LABS: Anti-Glial/Neuronal Nuc Ab-1 A Negative titer (<1:240); Anti-Neuronal Nuclear Ab Type1 Negative titer (<1:240); Anti-Neuronal Nuclear Ab Type2 Negative titer (<1:240); Anti-Neuronal Nuclear Ab Type3 Negative titer (<1:240); Anti-Striated Muscle Antibody Negative titer (<1:120); CRMP-5 IgG Antibody Negative titer (<1:240); Purkinje Cell Cytoplasm Typ Tr Negative titer (<1:240); Purkinje Cell Cytoplasm Type 1 Negative titer (<1:240); Purkinje Cell Cytoplasm Type 2 Negative titer (<1:240)
== END 2019-01-27 16:45 | disposition swing bed (61) | DRG 698 ==
LOC: ED 07:11 → MED 10:46
PROVIDERS: ADMIT Internal Medicine; ATTEND Internal Medicine
PROC: 009U3ZX Drainage of Spinal Canal, Percutaneous Approach, Diagnostic (ICD-10-PCS; 2019-01-19)
PROC: 4A00X4Z Measurement of Central Nervous Electrical Activity, External Approach (ICD-10-PCS; 2019-01-20)
PROC: 02HV33Z Insertion of Infusion Device into Superior Vena Cava, Percutaneous Approach (ICD-10-PCS; 2019-01-20)
PROC: 0DH63UZ Insertion of Feeding Device into Stomach, Percutaneous Approach (ICD-10-PCS; principal; 2019-01-21)
PROC: 30233N1 Transfusion of Nonautologous Red Blood Cells into Peripheral Vein, Percutaneous Approach (ICD-10-PCS; 2019-01-21)
PROC: 0DH67UZ Insertion of Feeding Device into Stomach, Via Natural or Artificial Opening (ICD-10-PCS; 2019-01-21)
DX: T83.511A Infection and inflammatory reaction due to indwelling urethral catheter, initial encounter (principal); E43 Unspecified severe protein-calorie malnutrition; D68.9 Coagulation defect, unspecified; R62.7 Adult failure to thrive; E83.52 Hypercalcemia; J44.9 Chronic obstructive pulmonary disease, unspecified; N31.9 Neuromuscular dysfunction of bladder, unspecified; N35.92 Unspecified urethral stricture, female; Z96.651 Presence of right artificial knee joint; G20 Parkinson's disease; F31.9 Bipolar disorder, unspecified; F41.9 Anxiety disorder, unspecified; F02.80 Dementia in other diseases classified elsewhere, unspecified severity, without behavioral disturbance, psychotic disturbance, mood disturbance, and anxiety; G31.84 Mild cognitive impairment of uncertain or unknown etiology; K59.00 Constipation, unspecified; R13.10 Dysphagia, unspecified; D64.9 Anemia, unspecified; N39.0 Urinary tract infection, site not specified; B96.1 Klebsiella pneumoniae [K. pneumoniae] as the cause of diseases classified elsewhere; D35.1 Benign neoplasm of parathyroid gland; E21.0 Primary hyperparathyroidism; Y65.8 Other specified misadventures during surgical and medical care; Z90.721 Acquired absence of ovaries, unilateral; Z88.1 Allergy status to other antibiotic agents; Z88.0 Allergy status to penicillin; Z88.2 Allergy status to sulfonamides; Z82.49 Family history of ischemic heart disease and other diseases of the circulatory system; Z87.891 Personal history of nicotine dependence; Z68.22 Body mass index [BMI] 22.0-22.9, adult; Y92.9 Unspecified place or not applicable; Z79.51 Long term (current) use of inhaled steroids; Z79.82 Long term (current) use of aspirin; Z23 Encounter for immunization
CPT/HCPCS: 36415; 62270; 70491; 71045; 74019; 74176; 78072; 80048; 80053; 80178; 81003; 81015; 82272; 82330; 82465; 82607; 82668; 82728; 82945; 83519; 83520; 83540; 83550; 83605; 83615; 83735; 83883; 83916; 84100; 84134; 84155; 84156; 84157; 84165; 84166; 84478; 84484; 85025; 85027; 85045; 85060; 85610; 85730; 86255; 86256; 86850; 86900; 86901; 86922; 87040; 87070; 87077; 87086; 87186; 87205; 87476; 87529; 87798; 87899; 88112; 90686; 93005; 94640; 95816; 99284; 99406; A9270-GY; A9500; C1751; G8978-GP-CM; G8979-GP-CK; J0690; J0696; J1630; J2060; J2250; J2270; J2405; J3010; J3430; J3475; J3480; J3489; J3535; P9040; Q9967

== ENCOUNTER 2019-05-01 11:16 | Observation (INO) | payer MEDICARE ==
[~2019-05-01 11:16] MED LIST: Buffered Lidocaine 1% SYRIN* 1 ML/SYRINGE INTRADERM ONE; Lactated Ringers 1000 ML Bag* 1,000 ML IV SCH; Levalbuterol 1.25MG/0.5ML NEB INH ONE
[2019-05-01] MEDS ORDERED: Levalbuterol 1.25MG/0.5ML NEB ONE (12:45)
[2019-05-01] MEDS ORDERED: Bupivacaine 0.25% SDV* 30 ML ONE (13:36)
[2019-05-01] MEDS ORDERED: Lidocaine 1% INJ* 10 MG/ML 30 ML SDV ONE (13:36)
[2019-05-01] MEDS ORDERED: Naloxone* 0.4 MG/ML 1 ML VIAL IV PRN (14:37)
[2019-05-01] MEDS ORDERED: HYDROmorphone INJ1* 1 MG/ML SYRINGE IV PRN (14:37)
[2019-05-01] MEDS ORDERED: Lidocaine 2% VISCOUS* 15 ML UDC SWISH SPIT ONE (14:39)
[2019-05-01] MEDS ORDERED: Propofol* 10 MG/ML 20 ML BTL ONE ×2 (16:04→18:24)
[2019-05-01] MEDS ORDERED: fentaNYL* 50 MCG/ML 2 ML VIAL (100 MCG VIAL) ONE (17:08)
[2019-05-01] MEDS ORDERED: Acetaminophen TAB* 325 MG PO PRN (17:23)
[2019-05-01] MEDS ORDERED: Ondansetron INJ* 2 MG/ML VIAL IV PRN (17:23)
[2019-05-01] MEDS ORDERED: oxyCODONE/Acetamin 5/325 MG* TAB PO PRN (17:23)
[2019-05-01] MEDS ORDERED: Docusate CAP* 100 MG PO PRN (17:23)
[2019-05-01] MEDS ORDERED: Ondansetron TAB* 4 MG PO PRN (17:33)
[2019-05-01] MEDS ORDERED: Polyethylene Glycol 3350* 17 GM PACKET PO PRN (17:33)
[2019-05-01] MEDS ORDERED: Magnesium Oxide TAB* 400 MG PO SCH (18:00)
[2019-05-01] MEDS ORDERED: Lactated Ringers 1000 ML Bag* 1,000 ML IV SCH (18:00)
--- NOTE | 2019-05-01 19:37 | BRIEFOPN ---
Brief Operative/Procedure Note - Operation Details Pre-Op Diagnosis: primary hyperparathyroidism Post-Op Diagnosis: primary hyperparathyroidism Procedures: parathyroidectomy, 3.5 gland excision (RU, NINA, LL and 1/2 RL glands) Surgeon(s)/Proceduralists: Wendy Pastor Anesthesia: PRATEEK, Drs. Thomas, Cindy Findings: enlarged, adenomtaous RU and NINA glands, hyperplastic LL and RL glands Specimen(s)/Culture(s) Description: RU, NINA, RL, glands, 1/2 LL gland Complications: none
[2019-05-01] MEDS ORDERED: Cholecalciferol TAB* 1000 UNITS PO SCH (21:00)
[2019-05-01] MEDS ORDERED: Tamsulosin CAP* 0.4 MG PO SCH (21:00)
[2019-05-01] MEDS ORDERED: Mirtazapine TAB* 15 MG PO SCH (21:00)
[2019-05-01] MEDS ORDERED: Lithium LIQ* 300 MG/5 ML UDC PO SCH (21:00)
[2019-05-01] MEDS: clonazePAM TAB(*) 0.5 MG PO SCH (23:25)
[2019-05-02] MEDS: Cyanocobalamin TAB* 500 MCG PO SCH ×2 (00:38→08:56)
[2019-05-02] MEDS: Mometasone/Formoter 200/5 MDI INH SCH ×2 (00:38→08:56)
[2019-05-02] MEDS: Calcium Carbonate CHEW TAB* 500 MG (TUMS) PO SCH ×3 (00:38→08:55)
[2019-05-02] MEDS: Lactulose* 15 ML UDC PO SCH ×2 (00:38→08:56)
[2019-05-02] MEDS: lamoTRIgine TAB(*) 100 MG PO SCH ×2 (00:38→08:56)
--- NOTE | 2019-05-02 02:43 | OP ---
CC: Dr. Angela eLal; Dr. Denzel Mark * DATE OF OPERATION: 05/01/19 - ROOM #343 DATE OF : 49 SERVICE: General Surgery. ATTENDING SURGEON: Wendy Pastor MD. ADVERTISING DISPATCH [employer]ERKS SUPERVISOR: Juana Alvarado MD ANESTHESIOLOGISTS: Dr. White and Dr. Thomas. ANESTHESIA: General endotracheal anesthesia. PRE-OP DIAGNOSIS: Primary hyperparathyroidism. POST-OP DIAGNOSIS: Primary hyperparathyroidism. OPERATIVE PROCEDURE: A 3.5-gland parathyroidectomy, 4-gland exploration (right upper, left upper, right lower, and half of the left lower glands removed). ESTIMATED BLOOD LOSS: Minimal, less than 10 cc. INDICATIONS FOR SURGERY: Ms. 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 She has been recently controlled with medical management; however, she did wish to undergo a parathyroidectomy. Preoperative ultrasound did not definitively identify an adenoma, but a Sestamibi suggested a left upper adenoma. Given that she had possibly lithium induced hyperparathyroidism, the decision was made to perform a 4-gland exploration, expecting she had 4 gland hyperplasia. She understood that the risks included, but not were limited to, bleeding, infection, injury to nearby structures, including injury to the recurrent laryngeal nerve and the possibility of hypoparathyroidism, and other possible intraoperative systemic events. She understood the alternatives and benefits as well and she wished to proceed. DESCRIPTION OF PROCEDURE: The patient was brought back to the operating room and placed on the operating table in the supine position. Sequential compression devices were placed on bilateral lower extremities for DVT prophylaxis. No antibiotics were administered. General endotracheal anesthesia was induced. The electrodes for nerve monitor were attached. Of note, the patient has a chronic Capellan catheter for her neurogenic bladder. A time-out was performed prior to administering local anesthesia to the neck, which consisted of 0.25% Marcaine and 1% lidocaine mixed. After this, the neck was prepped and draped in normal sterile fashion. Prior to beginning of the surgery, an additional time-out was performed verifying the patient's name, date of , and the procedure to be performed, which was a parathyroidectomy. Next, a 4 centimeter incision was made in the natural crease line, approximately 2 fingerbreadths above the sternal notch. The skin was divided down to the subcutaneous tissue, the platysma was divided, and the inferior and superior subplatysmal flaps were developed. The median raphe between the strap muscles was identified and divided and the strap muscles were retracted laterally off the isthmus of the thyroid. Given that the patient had preoperative sestamibi that localized a left upper parathyroid adenoma, attention was turned first towards the left thyroid lobe. The strap muscles were retracted laterally off of the left thyroid lobe, which was then able to be retracted anteriorly and medially out of the neck. The middle thyroid vein was identified and divided. Attention was turned towards the left upper thyroid lobe. The left upper parathyroid was identified and was somewhat atypical position. It was very superior in the neck and located more laterally towards the carotid artery. It was clearly an adenomatous and enlarged parathyroid gland. It was isolated on the pedicle and then after this attention was turned towards identifying the left lower parathyroid gland. The left lower parathyroid gland was easily identified, just at the base of the left inferior lobe. It was in somewhat subscapularis position just at the inferior extent to the lobe. Given that it appeared to be normal, it was not isolated on the pedicle because I did not believe that we would need to remove it. Next, attention was turned towards the right thyroid gland. In the similar fashion, the strap muscles were retracted laterally off of the thyroid lobe and middle thyroid vein was identified and divided, and the right thyroid lobe was retracted medially and anteriorly out of the neck. With great care, the area of the right upper parathyroid gland was explored. This exploration was extensive and difficult given that the right upper parathyroid gland was not readily found. Attention was turned towards the very superior extent near the cricothyroid muscle. It was not identified there. The upper pole was completely taken down and retracted medially exposing the esophagus. No retroesophageal adenoma was identified. Next, the recurrent laryngeal nerve was identified and dissected out. The typical location posterior to the recurrent laryngeal nerve was explored and the right upper paratyhroid gland was not readily identified. However, essentially a small nodule was identified that was felt to be the right upper parathyroid gland and appeared to be somewhat normal. Therefore, attention was turned towards identifying the right lower parathyroid gland. It was located in the similar anatomic position as where the left lower parathyroid gland was. It was located somewhat subscapular just at the very inferior extent of the right lower lobe. It was dissected out and appeared to be somewhat hyperplastic and enlarged. Therefore , the pedicle was isolated and it was then divided. Next, the left upper parathyroid gland was then excised and serial PTH values were then obtained. The baseline PTH value was 89.1, the time 0 was 89.6, time 5 was 87.3, and time 10 was 84.1. Given that the intraoperative PTH level did not decline appropriately, the decision was made to reexplore her neck. An additional T30 was obtained and it returned as 86.1. The neck was again reexplored with attention turning towards confirming the right upper parathyroid gland and the left lower parathyroid gland by biopsying them. What was thought to be the right upper parathyroid gland was identified again. It was clipped and it was pieced that was taken for frozen specimen. The left lower parathyroid gland was identified. It was almost certainly a parathyroid gland, but half of it was excised and sent for frozen specimen. The intraoperative frozen specimen returned. What was thought to be the right upper parathyroid gland was actually a lymph node and then the left lower parathyroid gland was indeed a parathyroid tissue. Given that the right upper parathyroid gland was the parathyroid gland that had not yet been identified, extensive search was again performed in the normal anatomic positions where the right upper gland normally sits. Eventually, the parathyroid gland was identified in a very lateral position near the carotid sheath. It was enlarged and clearly adenomatous. It was divided on its pedicle and at this point, all 4 glands had been identified and 3.5 glands had been excised. Therefore, the procedure was terminated. Careful hemostasis was obtained in the neck on both the right and lateral necks. Tisseel was placed. The strap muscles were reapproximated using 4-0 Vicryl sutures. The platysma was reapproximated using interrupted 4-0 Vicryl sutures and the skin was closed using a running 5-0 Prolene suture. Sterile dressing was then placed. The patient's anesthesia was reversed and she was taken to the PACU in the stable condition. At the end of the case, all counts were correct and I was present through entirety of the case. [id number]/[facility] #: [id number] [facility] HOSPITALRohit
[2019-05-02] MEDS: clonazePAM TAB(*) 0.5 MG PO SCH (08:55)
[2019-05-02] MEDS ORDERED: Pantoprazole TAB * 40 MG TAB PO SCH (09:00)
[2019-05-02] MEDS ORDERED: Sertraline* 100 MG TAB PO SCH (09:00)
[2019-05-02] MEDS ORDERED: SPIRIVA Respimat* (tiotropium) 2.5 mcg/inh Inhaler INH SCH (09:00)
[2019-05-02] MEDS: Carbidopa/Levodop 25/100 MG TAB(*) PO SCH ×2 (09:08→13:24)
[2019-05-02 11:59] VITALS: BP 98/51
[2019-05-02] MEDS ORDERED: Magnesium Oxide TAB* 400 MG PO SCH (13:00)
[2019-05-02] MEDS ORDERED: Nitrofurantoin Macrocrystals* 100 MG CAP PO SCH (13:00)
--- NOTE | 2019-05-02 15:01 | PN ---
Progress Note - Progress Note Date of Service: 05/02/19 Note: S: POD #1. Doing well. Seen earlier this a.m. by Dr. Pastor as well. No sig pain. Chaim diet. Has been up to BR; had BM. O: Vital Signs - 8 hr 05/02/19 05/02/19 05/02/19 08:00 08:53 08:55 Temperature 97.8 F Pulse Rate 79 Respiratory 18 16 18 Rate Blood Pressure 98/63 (mmHg) O2 Sat by Pulse 92 Oximetry 05/02/19 05/02/19 11:56 12:31 Temperature 98.5 F Pulse Rate 86 Respiratory 16 20 Rate Blood Pressure 98/51 (mmHg) O2 Sat by Pulse 90 Oximetry Intake and Output Last 24 Hours 04/30/19 05/01/19 05/02/19 05/03/19 06:59 06:59 06:59 06:59 Intake Total 1540 1536 Output Total 1000 Balance 540 1536 Weight 123 lb 0.005 oz Intake: IV Fluids 1300 1536 LR 768 lr 1300 Oral 240 Output: Capellan 1000 Gen: appears well; NAD Heart: reg Lungs: clear Neck: slight ecchymosis R neck; no hematoma; dsg dry, intact Labs: Laboratory Tests 05/02/19 05:54 PTH Intact 54.7 Calcium (PTH Intact) 9.9 A: s/p parathyroidectomy, doing well P: home today; instructions reviewed; office f/u 05/09/19
--- NOTE | 2019-05-02 16:10 | DS ---
AMENDED REPORT NOW INCLUDES DESIGNATED COSIGNER CC: Dr. Angela Leal; Dr. Denzel Mark * DATE OF ADMISSION: 05/01/2019. DATE OF DISCHARGE: 05/02/2019. ATTENDING SURGEON: Dr. Wendy Pastor * (MANJIT Andrea dictating). HOSPITAL COURSE: Please refer to admission history and physical and operative note for details. Briefly, the patient underwent parathyroidectomy (3.5 of 4 glands removed) with Dr. Pastor on 05/01/2019. She did have a slight decrease in rapid PTH once the final suspect parathyroid gland was removed. As of the morning of discharge, PTH was 54.7 and serum calcium was 9.9. She was without any significant symptoms and was doing well the morning of discharge. She was also seen earlier that morning by Dr. Pastor (see separate progress note from the same date). Instructions were reviewed. She was instructed to hold her aspirin and resume it in one week. Otherwise, she will resume her other usual medications and use Tylenol prn for pain. FOLLOW-UP: She has a follow-up with our office on 05/09/2019. DISPOSITION AND CONDITION ON DISCHARGE: She is discharged to home in good condition. MANJIT ANDREA [id number]/[facility] #: [id number] MTDRohit
== END 2019-05-02 13:30 | disposition home or self-care (01) ==
LOC: OR 11:16 → SSU 17:23
PROVIDERS: ADMIT Surgery; ATTEND Surgery
DX: E21.3 Hyperparathyroidism, unspecified (principal); G20 Parkinson's disease; F31.9 Bipolar disorder, unspecified; D51.9 Vitamin B12 deficiency anemia, unspecified; R73.01 Impaired fasting glucose; R33.9 Retention of urine, unspecified; Z79.899 Other long term (current) drug therapy; Z79.82 Long term (current) use of aspirin; J44.9 Chronic obstructive pulmonary disease, unspecified
CPT/HCPCS: 36415; 82310; 83970; 88305; 88331; A9270-GY; G0378; J2704; J3010; J3490; J3535

== ENCOUNTER 2019-05-09 12:27 | Inpatient (IN) | payer MEDICARE ==
--- NOTE | 2019-05-09 12:56 | ED ---
Altered Mental Status - HPI Summary HPI Summary: Patient is a 74 y/o F presenting to the ED for a chief complaint of altered mental status. Patient is present with her family. Per her family, patient was seen at her PCPs office on 05/09/19 and sent to [facility]. Since her parathyroidectomy performed by Dr. Pastor one week ago, patient has been confused, weak, and unable to ambulate. Before this, she was able to ambulate with a walker. Her symptoms gradually worsened in the last 3 days. At baseline, patient has occasional vomiting when swallowing pills. Patient reports dizziness and headache, but denies myalgia or shortness of breath. She has a G tube in place. No fever, changes in appetite, bowel movements, or urination is noted. Her family denies she has had any trauma or falls. Patient has had several visits to [facility] in the past. PMHx is significant for Parkinsons disease and COPD, but a history of DM or HTN is denied. Patient uses 2 L of oxygen at home daily for the last 4-5 days, but used oxygen as needed prior to this. Allergies noted. Medications reviewed. - History Of Current Complaint Chief Complaint: EDAltMentalStatus Stated Complaint: LOW OXYGEN/GENERAL ILLNESS PER PT Time Seen by Provider: 05/09/19 12:41 Hx Obtained From: Patient, Family/Printing Supplies Sales Representative - Family Hx From Patient Unobtainable Due To: Altered Mental Status Onset/Duration: Still Present Timing: Constant Severity Initially: Moderate Severity Currently: Moderate Character: Confusion Aggravating Factor(s): Nothing Alleviating Factor(s): Nothing Associated Signs And Symptoms: Positive: Dizziness, Vomiting - Occasional, Weakness - Allergies/Home Medications Allergies/Adverse Reactions: Allergies Allergy/AdvReac Type Severity Reaction Status Date / Time amoxicillin [From Augmentin] Allergy Rash Verified 05/09/19 12:37 clarithromycin Allergy Rash Verified 05/09/19 12:37 clavulanic acid Allergy Rash Verified 05/09/19 12:37 [From Augmentin] moxifloxacin Allergy Rash Verified 05/09/19 12:37 Sulfa (Sulfonamide Allergy Rash Verified 05/09/19 12:37 Antibiotics) Home Medications: Home Medications Carbidopa/Levodop 25/100 MG(*) [Sinemet 25/100 TAB(*)] 3 tab PO TID 05/09/19 [ History Confirmed 05/09/19] [place] Carbonate TAB* 450 mg PO BEDTIME 05/09/19 [History Confirmed 05/09/19] PMH/Surg Hx/FS Hx/Imm Hx Previously Healthy: Yes Endocrine/Hematology History: Reports: Hx Thyroid Disease - HYPERPARATHYROID DISEASE Denies: Hx Anticoagulant Therapy, Hx Bone Marrow Disease, Hx Diabetes, Hx Systemic Lupus Erythematosus, Hx Sickle Cell Disease, Hx Anemia Cardiovascular History: Denies: Hx Angina, Hx Cardiomegaly, Hx Congestive Heart Failure, Hx Coronary Artery Disease, Hx Hypertension, Hx Pacemaker/ICD, Hx Peripheral Vascular Disease, Hx Rheumatic Fever, Hx Valvular Heart Disease, Other Cardiovascular Problems/Disorders Respiratory History: Reports: Hx Chronic Obstructive Pulmonary Disease (COPD), Other Respiratory Problems/Disorders - COPD-USES INHALERS Denies: Hx Asthma, Hx Pulmonary Edema, Hx Pulmonary Embolism, Hx Sleep Apnea GI History: Reports: Hx Gastroesophageal Reflux Disease - [place] OMEPRAZOLE, Other GI Disorders - ZOFRAN PRN FOR NAUSEA Denies: Hx Cirrhosis, Hx Crohn's Disease, Hx Hiatal Hernia, Hx Irritable Bowel, Hx Jaundice, Hx Ulcer History: Reports: Other Problems/Disorders - neurogenic bladder, urethral stricture Denies: Hx Dialysis, Hx Kidney Infection, Hx Kidney Stones, Hx Renal Disease Musculoskeletal History: Reports: Hx Arthritis - RIGHT KNEE, Hx Orthopedic Injury, Other Musculoskeletal History - osteoarthritis, right hand ORIF, R TKR Denies: Hx Rheumatoid Arthritis, Hx Bursitis, Hx Osteoporosis, Hx Tendonitis Sensory History: Denies: Hx Cataracts, Hx Contacts or Glasses, Hx Glaucoma, Hx Deafness, Hx Hearing Aid - 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 Opthamlomology History: Denies: Hx Cataracts, Hx Contacts or Glasses, Hx Glaucoma Neurological History: Reports: Hx Dementia, Hx Nerve Disease - PARKINSON'S, Other Neuro Impairments/Disorders - S/P HEAD BLEED(AIMEE) AFTER FALL 6-8 [place]AGO- RESOLVED PER HSB Denies: Hx Headaches, Hx Migraine, Hx Seizures Psychiatric History: Reports: Hx Anxiety - ON MEDICATION, Hx Depression - NO DEPRESSION AT THIS TIME, Hx Bipolar Disorder Denies: Hx Attention Deficit Hyperactivity Disorder, Hx Eating Disorder, Hx Panic Disorder, Hx Post Traumatic Stress Disorder, Hx Inpatient Treatment, Hx Community Mental Health Tx, Hx Schizophrenia, Hx Suicide Attempt, Hx of Violent Episodes Against Others, Hx Substance Abuse, Other Psychiatric Issues/Disorders - Cancer History Hx Chemotherapy: No Hx Radiation Therapy: No - Surgical History Surgical History: Yes Surgery Procedure, Year, and Place: RIGHT KNEE REPLACEMENT 2012. LEFT OOPHERECTOMY 20 +YRS AGO. ORIF R HAND [facility] 10. PEG TUBE IN PLACE (CURRENTLY NOT IN USE) Hx Anesthesia Reactions: No - Immunization History Date of Tetanus Vaccine: utd Date of Influenza Vaccine: fall 2017 Infectious Disease History: No Infectious Disease History: Denies: Hx Clostridium Difficile, Hx Hepatitis, Hx Human Immunodeficiency Virus (HIV), Hx of Known/Suspected MRSA, Hx Shingles, Hx Tuberculosis, Hx Known/ Suspected VRE, Hx Known/Suspected VRSA, History Other Infectious Disease, Traveled Outside the [place] in Last 30 Days - Family History Known Family History: Positive: Cardiac Disease, Respiratory Disease Negative: Renal Disease - Social History Occupation: Retired Lives: With Family Alcohol Use: None Hx Substance Use: No Substance Use Type: Reports: None Substance Use Comment - Amount & Last Used: CLONOPIN FOR ANXIETY Hx Tobacco Use: Yes Smoking Status (MU): Former Smoker Type: Cigarettes Amount Used/How Often: 1 PPD X 40+ YRS Length of Time of Smoking/Using Tobacco: patient does not remember Have You Smoked in the Last Year: No Review of Systems Negative: Fever, Other - Negative changes in appetite Negative: Shortness Of Breath Negative: Other - Negative changes in bowel movements Negative: other - Negative changes in urination Negative: Myalgia Neurological: Other - Positive confusion and dizziness Positive: Headache, Weakness All Other Systems Reviewed And Are Negative: Yes Physical Exam - Summary Physical Exam Summary: Constitutional: Well-developed, Well-nourished, Alert. (-) Distressed Skin: Warm, Dry HENT: Normocephalic; Atraumatic Eyes: Conjunctiva normal Neck: Musculoskeletal ROM normal neck. (-) JVD, (-) Stridor, (-) Tracheal deviation Cardio: Rhythm regular, rate normal, Heart sounds normal; Intact distal pulses; Radial pulses are 2+ and symmetric. (-) Murmur Pulmonary/Chest wall: Effort normal. (-) Respiratory distress, (-) Wheezes, (-) Rales Abd: Soft, (-) tenderness, (-) Distension, (-) Guarding, (-) Rebound Musculoskeletal: (-) Edema. Lymph: (-) Cervical adenopathy Neuro: Alert, Oriented x3. 5/5 sensation intact in all extremities, sensation intact in all dermatomes, slow to respond to questions, does not know the year or president, but she does know the city. Psych: Mood and affect Normal Triage Information Reviewed: Yes Vital Signs On Initial Exam: Initial Vitals Temp Pulse Resp BP Pulse Ox 97.8 F 85 16 110/90 95 05/09/19 12:31 05/09/19 12:31 05/09/19 12:31 05/09/19 12:31 05/09/19 12:31 Vital Signs Reviewed: Yes - Belkys Coma Scale Best Eye Response: 4 - Spontaneous Best Motor Response: 6 - Obeys Commands Best Verbal Response: 5 - Oriented Coma Scale Total: 15 Procedures - Sedation Patient Received Moderate/Deep Sedation with Procedure: No Diagnostics - Vital Signs Vital Signs Temp Pulse Resp BP Pulse Ox 05/09/19 12:31 97.8 F 85 16 110/90 95 - Laboratory Result Diagrams: 05/09/19 13:16 05/09/19 13:16 Lab Statement: Any lab studies that have been ordered have been reviewed, and results considered in the medical decision making process. - CT Brain CT CT Interpretation Completed By: Radiologist Summary of CT Findings: Brain CT IMPRESSION: No intracranial mass or hemorrhage is noted. Reviewed by Dr. Saenz. - EKG 13:08 Cardiac Rate: NL - 77 BPM EKG Rhythm: Sinus Rhythm ST Segment: Normal Ectopy: None Summary of EKG Findings: EKG at 13:08 shows normal sinus rhythm with 77 BPM, lots of artifact in the inferior leads and aVL making those leads unreadable, QTc 458, FL 153, QT 404. Reviewed and interpreted by Dr. Saenz. Altered Mental Statu Course/Dx - Course Course Of Treatment: Patient is here with altered mental status. Patient is a complex medical history with old blood and motions to the hospital this past year. Patient was treated for hyperparathyroidism secondary to lithium use. Patient had a partial parathyroidectomy one week ago. Patient's had worsening mental status for the past 3 days. Patient has a Capellan for neurogenic bladder and had a UA which showed possible UTI. Patient was started on Rocephin for prior cultures. Patient had a calcium level of 13. Patient was given IV fluids for that. Patient is admitted to the hospitalist with an endocrinology consult - Diagnoses Provider Diagnoses: Hypercalcemia, Primary hypothyroidism, UTI (urinary tract infection), AMS ( altered mental status) - Provider Notifications Discussed Care Of Patient With: Josie Castellanos - At 15:06, Dr. Castellanos agrees to admit the patient to [facility]. Time Discussed With Above Provider: 15:06 Instructed by Provider To: Admit As Inpatient Discharge ED - Sign-Out/Discharge Documenting (check all that apply): Patient Departure - Admit - Discharge Plan Condition: Stable Disposition: ADMITTED TO [facility] Referrals: Angela Leal MD [Primary Care Provider] - - Billing Disposition and Condition Condition: STABLE Disposition: Admitted to [facility] - Attestation Statements Document Initiated by Scribe: Yes Documenting Scribe: Ysabel Bustamante Provider For Whom Alphonso is Documenting (Include Credential): Michael Saenz MD Scribe Attestation: Ysabel Byrne, scribed for Michael Saenz MD on 05/09/19 at 1732. Scribe Documentation Reviewed: Yes Provider Attestation: The documentation as recorded by the Ysabel huynh accurately reflects the service I personally performed and the decisions made by Michael kruse MD Status of Scribe Document: Viewed
[2019-05-09 13:32] LABS: ABS Eosinophils 0.1 10^3/ul (0-0.6); ABS Lymphocytes 1.1 10^3/ul (1.0-4.8); ABS Monocytes 0.7 10^3/ul (0-0.8); ABS Neutrophils 6.2 10^3/ul (1.5-7.7); Eosinophil % 1.2 %; Hematocrit 41 % (35-47); Hemoglobin 13.5 g/dL (12.0-16.0); Lymphocyte % 13.5 %; Mean Corpuscular HGB Conc 33 g/dL (31-36); Mean Corpuscular Hemoglobin 30 pg (27-31); Mean Corpuscular Volume 91 fL (80-97); Mean Platelet Volume 9.3 fL (7.4-10.4); Nucleated Red Blood Cells % 0.1; Platelet Count 300 10^3/uL (150-450); Red Blood Count 4.48 10^6 /uL (3.70-4.87); Red Cell Distribution Width 14 % (10-15); White Blood Count 8.2 10^3/uL (3.5-10.8)
[2019-05-09 13:48] LABS: Urine Appearance Turbid; Urine Bilirubin Negative (Negative); Urine Blood 1+ (Negative); Urine Color Yellow; Urine Glucose Negative (Negative); Urine Ketones Trace (Negative); Urine Nitrite Positive (Negative); Urine Protein Negative (Negative); Urine Specific Gravity 1.012 (1.010-1.030); Urine Urobilinogen Negative (Negative)
[2019-05-09 13:50] LABS: ALT < 3 U/L (7-52); AST 9 U/L (13-39); Albumin/Globulin Ratio 1.5 (1-3); Alkaline Phosphatase 122 U/L (34-104); Anion Gap 7 mmol/L (2-11); Blood Urea Nitrogen 22 mg/dL (6-24); CO2 Carbon Dioxide 31 mmol/L (22-32); Chloride 102 mmol/L (101-111); EGFR African American 59.1 (>60); EGFR Non-African American 48.8 (>60); Globulin 2.7 g/dL (2-4); Glucose 122 mg/dL (70-100); Potassium 3.8 mmol/L (3.5-5.0); Sodium 140 mmol/L (135-145); Total Protein 6.7 g/dL (6.4-8.9)
[2019-05-09 13:53] LABS: Calcium 13.7 mg/dL (8.6-10.3)
[2019-05-09 13:54] LABS: Urine Bacteria 1+ (Absent); Urine Red Blood Cell 2+(6-10/hpf) (Absent); Urine Squamous Epithelial Cell Present (Absent); Urine White Blood Cell 3+(>20/hpf) (Absent)
[2019-05-09] MEDS ORDERED: NS 0.9% 1000 ML** 1,000 ML IV ONE ×2 (14:02→15:09)
[2019-05-09] MEDS ORDERED: cefTRIAXone(*) 1 GM in NS 0.9% 50 ML* 50 ML IVPB ONE (14:50)
[2019-05-09 15:25] LABS: Free T4 1.49 ng/dL (0.61-1.12)
[2019-05-09 15:29] LABS: TSH (Thyroid Stimulating Horm) 0.03 mcIU/mL (0.34-5.60)
[2019-05-09 15:31] LABS: Lithium 0.91 mmol/L (0.6-1.2)
--- NOTE | 2019-05-09 16:07 | CONSULT ---
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 While hypercalcemia is rare after sub-total parathyroid resection, she has many risk factors for this, including: lithium carbonate therapy, volume depletion, prolonged bed rest or inactivity and a high calcium diet (>1000 mg/day). In the past, her 24h urinary calcium was low-normal, which I suspect was the effect of lithium to decrease renal calcium excretion independent of PTH levels. PLAN: - start IVNS at least 150mL/hour, then adjusted to maintain urine output at 100- 150mL/hour - if calcium is >12 tonight, start calcitonin (4 IU/kg) every 6 hours for the next 24 hours - if calcium is >12 tomorrow night, give IV zoledronic acid (4 mg over 15 minutes) - avoid calcium-containing foods and supplements and vitamin D. 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 At the last visit with me in February 2019, she was doing well after a prolonged hospital and rehab stay. Parathyroid localizing studies were positive in December 2018, but she was not a surgical candidate then due to her debilitated status. Fortunately, she had had an excellent response to IV zoledronic acid during her admission and remained eucalcemic. Prior to this, she had done poorly with oral agents (alendronate, Sensipar) was to avoid these in the future. She was deemed to be a good candidate for sub-total parathyroidectomy in the future. She underwent at least 2-1/2 gland parathyroidectomy on 05/01/[address] Pastor. An incidental neuroma adjacent to the L upper thyroid was also removed. Intra-op PTH declined from 103.6 to 79.3. Post-op PTH was 54.7 with Ca 9.9. To avoid post -ophypocalcamia, she was discharged on supplemental calcium and vitamin D on 02/09. She has been feeling poorly in the past 24 hours with muscle/back soreness, fatigue, drowsiness and decreased fluid intake. She continued to eat normally during this time. BMs occurred every other day in the past week. She was taking CaCO3 (TUMS) 1000mg four times/day since surgery, along with a vitamin D supplement. Past Medical History: - Bipolar mood disorder - Parkisonism - Hyperparathyroidism Medications Prior to Admission: - Calcium carbonate 1000mg four times/day - vitamin D 1000 IU daily - omeprazole 40 mg 1 by mouth every day - Spiriva Handihaler 18 mcg inhale contents of 1 capsule via handihaler every day - Symbicort 160-4.5 mcg/Act 2 puffs twice a day - Sinemet 25-100 mg 3 tabs by mouth tid. take 20 minutes prior to breakfast, lunch and dinner. - [place] Carbonate ER 300 mg 1 1/2 tablets once daily (total of 450 mg) - Lamictal 100mg twice daily - Zoloft 100 mg 1 + 1/2 tabs po daily - Clonazepam .5 mg 1 po qam and 1 po qnoon and prn 1/2-1 tab qhs - Mirtazapine 15 mg 1 tab by mouth at bedtime Allergies/Intolerances: Sulfa, Augmentin, Avelox, Biaxin Social History: Lives with . Retired. No active substance or alcohol use. Family History: PD. CAD. Review of Systems: As above. OBJECTIVE: Temp Pulse Resp BP Pulse Ox 97.8 F 85 16 110/90 95 05/09/19 12:31 05/09/19 12:31 05/09/19 12:31 05/09/19 12:31 05/09/19 12:31 General: tired, but alert, pleasant, oriented ENT: neck supple, no thyromegaly, no bruit is heard Chest: CTAB, no wheezing or crackles CV: RRR, no murmur Abdomen: soft, non-tender Extremities: no edema, distal pulses intact Skin: warm, dry, no rash Neuro: grossly intact motor/sensory in extremities Psych: restricted affect, pleasant Labs: WBC 8.2 10^3/uL (3.5-10.8) 05/09/19 13:16 RBC 4.48 10^6 /uL (3.70-4.87) 05/09/19 13:16 Hgb 13.5 g/dL (12.0-16.0) 05/09/19 13:16 Hct 41 % (35-47) 05/09/19 13:16 MCV 91 fL (80-97) 05/09/19 13:16 MCH 30 pg (27-31) 05/09/19 13:16 MCHC 33 g/dL (31-36) 05/09/19 13:16 RDW 14 % (10-15) 05/09/19 13:16 Plt Count 300 10^3/uL (150-450) 05/09/19 13:16 MPV 9.3 fL (7.4-10.4) 05/09/19 13:16 Neut % (Auto) 76.0 % 05/09/19 13:16 Lymph % (Auto) 13.5 % 05/09/19 13:16 [place] % (Auto) 8.8 % 05/09/19 13:16 Eos % (Auto) 1.2 % 05/09/19 13:16 Baso % (Auto) 0.5 % 05/09/19 13:16 Absolute Neuts (auto) 6.2 10^3/ul (1.5-7.7) 05/09/19 13:16 Absolute Lymphs (auto) 1.1 10^3/ul (1.0-4.8) 05/09/19 13:16 Absolute Monos (auto) 0.7 10^3/ul (0-0.8) 05/09/19 13:16 Absolute Eos (auto) 0.1 10^3/ul (0-0.6) 05/09/19 13:16 Absolute Basos (auto) 0.0 10^3/ul (0-0.2) 05/09/19 13:16 Absolute Nucleated RBC 0.0 10^3/ul 05/09/19 13:16 Nucleated RBC % 0.1 05/09/19 13:16 Sodium 140 mmol/L (135-145) 05/09/19 13:16 Potassium 3.8 mmol/L (3.5-5.0) 05/09/19 13:16 Chloride 102 mmol/L (101-111) 05/09/19 13:16 Carbon Dioxide 31 mmol/L (22-32) 05/09/19 13:16 Anion Gap 7 mmol/L (2-11) 05/09/19 13:16 BUN 22 mg/dL (6-24) 05/09/19 13:16 Creatinine 1.10 mg/dL (0.51-0.95) H 05/09/19 13:16 Est GFR ( Amer) 59.1 (>60) 05/09/19 13:16 Est GFR (Non-Af Amer) 48.8 (>60) 05/09/19 13:16 BUN/Creatinine Ratio 20.0 (8-20) 05/09/19 13:16 Glucose 122 mg/dL (70-100) H 05/09/19 13:16 Calcium 13.7 mg/dL (8.6-10.3) H* 05/09/19 13:16 Total Bilirubin 0.50 mg/dL (0.2-1.0) 05/09/19 13:16 AST 9 U/L (13-39) L 05/09/19 13:16 ALT < 3 U/L (7-52) L 05/09/19 13:16 Alkaline Phosphatase 122 U/L (34-104) H 05/09/19 13:16 Troponin I 0.00 ng/mL (<0.03) 05/09/19 13:16 Total Protein 6.7 g/dL (6.4-8.9) 05/09/19 13:16 Albumin 4.0 g/dL (3.2-5.2) 05/09/19 13:16 Globulin 2.7 g/dL (2-4) 05/09/19 13:16 Albumin/Globulin Ratio 1.5 (1-3) 05/09/19 13:16 TSH 0.03 mcIU/mL (0.34-5.60) L 05/09/19 13:16 Free T4 1.49 ng/dL (0.61-1.12) H 05/09/19 13:16 PTH Intact 52.4 pg/mL (12-88) 05/09/19 13:16 Calcium (PTH Intact) 13.4 mg/dL (8.6-10.3) H* D 05/09/19 13:16 Urine Color Yellow 05/09/19 13:30 Urine Appearance Turbid 05/09/19 13:30 Urine pH 7.0 (5-9) 05/09/19 13:30 Ur Specific [place] 1.012 (1.010-1.030) 05/09/19 13:30 Urine Protein Negative (Negative) 05/09/19 13:30 Urine Ketones Trace (Negative) A 05/09/19 13:30 Urine Blood 1+ (Negative) A 05/09/19 13:30 Urine Nitrate Positive (Negative) A 05/09/19 13:30 Urine Bilirubin Negative (Negative) 05/09/19 13:30 Urine Urobilinogen Negative (Negative) 05/09/19 13:30 Ur Leukocyte Esterase 3+ (Negative) A 05/09/19 13:30 Urine WBC (Auto) 3+(>20/hpf) (Absent) A 05/09/19 13:30 Urine RBC (Auto) 2+(6-10/hpf) (Absent) A 05/09/19 13:30 Ur Squamous Epith Cells Present (Absent) A 05/09/19 13:30 Amorphous Crystals Present (Absent) A 05/09/19 13:30 Urine Bacteria 1+ (Absent) A 05/09/19 13:30 Urine Glucose Negative (Negative) 05/09/19 13:30 [place] 0.91 mmol/L (0.6-1.2) 05/09/19 13:16
[2019-05-09] MEDS ORDERED: Docusate CAP* 100 MG PO PRN (16:10)
[2019-05-09] MEDS ORDERED: Ondansetron TAB* 4 MG PO PRN (16:10)
[2019-05-09] MEDS ORDERED: NS 0.9% 1000 ML** 1,000 ML IV SCH (16:15)
[2019-05-09] MEDS: NS 0.9% 1000 ML** 1,000 ML IV SCH (18:57)
[2019-05-09] MEDS: Mometasone/Formoter 200/5 MDI INH SCH (19:20)
--- NOTE | 2019-05-09 20:01 | HP ---
CC: Dr. Leal; Dr. Pastor * HISTORY AND PHYSICAL: DATE OF ADMISSION: 05/09/19 PRIMARY CARE PROVIDER: Angela Leal MD CHIEF COMPLAINT: Weakness and confusion. HISTORY OF PRESENT ILLNESS: Ms. Nelson is a 74-year-old female who underwent parathyroidectomy on 05/01/[address] Pastor. Initially, after surgery, she was doing well. Her states; however, approximately 3 days ago she began to develop increased weakness. Initially, she was able to ambulate with a walker; however, at this point, she is not even able to ambulate at all. Over the last 1 day, she has been noted to be very confused. At baseline, her long-term memory is quite good but her short-term memory is poor. Her confusion now is even worse than usual. The patient had a followup appointment with Dr. Pastor today in the office and due to her complaints, it was recommended that the patient be evaluated in the emergency room. The patient herself is unable to provide any reliable history. All history is obtained from the patient's . She does tell me she feels tired. She has not had any fever or chills at home. Her appetite has been poor x1 week but generally better than prior to her surgery. The patient also recently has needed to use oxygen continuously as opposed to just on occasion like it was 1 month ago. PAST MEDICAL HISTORY: 1. Parkinson's disease. 2. Bipolar disorder. 3. Depression/anxiety. 4. Neurogenic bladder with chronic indwelling Capellan catheter. 5. Primary hyperparathyroidism. 6. Cognitive impairment. 7. COPD - O2 dependent. PAST SURGICAL HISTORY: 1. Bilateral cataract extractions. 2. Right right total knee arthroplasty. 3. Oophorectomy. 4. Right hand ORIF. 5. Parathyroidectomy. MEDICATIONS: 1. Zofran 4 mg p.o. q.6 hours p.r.n. nausea. 2. Vitamin D3 1000 units p.o. q.h.s. 3. Spiriva 1 puff inhaled daily. 4. Colace 100 mg p.o. b.i.d. p.r.n. constipation. 5. Flomax 0.4 mg p.o. q.h.s. 6. Omeprazole 40 mg p.o. daily. 7. Probiotic 1 cap p.o. daily. 8. Nitrofurantoin 100 mg p.o. daily. 9. Magnesium oxide 400 mg p.o. daily. 10. Lamictal 100 mg p.o. b.i.d. 11. Lactulose 15 mL p.o. t.i.d. 12. Klonopin 0.5 mg p.o. t.i.d. 13. Vitamin B12 250 mcg p.o. b.i.d. 14. Sinemet 25-100 three tabs p.o. t.i.d. 15. Symbicort 160-4.5 two puffs inhaled twice daily. 16. Remeron 7.5 mg p.o. q.h.s. 17. Aspirin 81 mg p.o. daily. 18. [place] 450 mg p.o. q.h.s. 19. Sertraline 150 mg p.o. daily. ALLERGIES: AUGMENTIN, SULFA, AVELOX, and BIAXIN. FAMILY HISTORY: Mom had Parkinson's. Dad had COPD. SOCIAL HISTORY: The patient is a former smoker. She quit in 2012. She does not drink alcohol. She is . Her is her healthcare proxy. She has essentially 24-hour care at home between her and private hire aides. REVIEW OF SYSTEMS: Unobtainable from the patient but as per HPI from her . PHYSICAL EXAMINATION GENERAL: The patient is a well-developed, elderly thin female, sitting up in bed, appearing to be confused and not totally engaged in conversation, in no acute distress. VITAL SIGNS: Blood pressure 110/90, pulse 85, respirations 16, temp 97.8, O2 sat is 95% on 2 L. HEENT: Pupils are round. There is evidence of prior cataract extraction. Extraocular muscles are intact. Oropharynx is clear. Tongue appeared somewhat furrowed but moist. There is no submandibular, cervical, or supraclavicular adenopathy. There is a well healing incision to the inferior aspect of the anterior neck. PULMONARY: The patient does not give a full effort but lungs sound to be clear bilaterally. CARDIAC: Normal S1, S2. Regular rate and rhythm. I do not appreciate any murmurs. There is no lower extremity edema. ABDOMEN: Bowel sounds present. Abdomen is soft, nontender, nondistended. MUSCULOSKELETAL: The patient moves all 4 extremities symmetrically. NEURO: Cranial nerves II through XII are grossly intact. Sensation is intact to light touch throughout. Strength is 5/5 and symmetric to both upper and lower extremities bilaterally. PSYCH: The patient is alert. She is however confused. SKIN: Visible areas of skin are warm and dry and without rash. LABORATORY DATA: Labs, WBC 8.2, hemoglobin 13.5, hematocrit 41, platelets 300. Sodium 140, potassium 3.8, chloride 102, CO2 31, BUN 22, creatinine 1.10, glucose 112. Calcium 13.7, bilirubin 0.5, AST 9, ALT less than 3, alk phos 122. Troponin 0. Albumin 4.0. TSH 0.03. Free T4 1.49. PTH intact 52.4. Urinalysis revealed turbid urine with specific gravity of 1.012, positive nitrite, 3+ leukocyte esterase. Positive bacteria. [place] 0.91. EKG reveals normal sinus rhythm. ST segments in the anterolateral leads are mounded. CT brain, no intracranial mass or hemorrhage is noted. ASSESSMENT AND PLAN: Ms. Nelson is a 74-year-old female with a history of primary hyperparathyroidism status post parathyroidectomy on 05/01/19, Parkinson 's disease, and bipolar disorder who presents to the emergency room with complaints of altered mental status and weakness and is found to be markedly hypercalcemic as well as with a likely catheter associated urinary tract infection. 1. Altered mental status. This is likely multifactorial from marked hypercalcemia as well as UTI. The patient's mental status will be monitored closely. At baseline, her short-term memory is poor, though her long-term is intact per her . 2. CAUTI. The patient has a catheter-associated urinary tract infection. She has received ceftriaxone in the emergency room. I will continue this giving 1 g IV daily. Her last organism grown was in December 2018 and she grew Klebsiella pneumoniae that was pansensitive. She has also grown Enterococcus faecalis in the past, which did show more of a resistance pattern. We will await final culture data. The patient will be receiving normal saline at 75 mL per hour as she has already received 2 L of fluid in the emergency room. 3. Hypercalcemia. As noted above, the patient underwent parathyroidectomy on 05/01/19. She has been on reportedly Tums per her and vitamin D supplementation. These will both be held. She is receiving normal saline. Repeat calcium level will be obtained tomorrow. Dr. Mark has reportedly seen the patient today; however, I do not have this consultation recommendations at this point. These will need to be followed up on once the consultation is transcribed. 4. Acute kidney injury. The patient has a creatinine of 1.1 today. Her baseline creatinine is around 0.5 to 0.6. Reportedly, she has not been eating or drinking well. I suspect she does have volume depletion leading to her increased creatinine. She has received 2 L of normal saline in the ER and will continue on normal saline at 75 mL per hour tonight. Followup creatinine will be obtained tomorrow. 5. Hyperthyroidism. The patient's TSH is low at 0.03 and her free T4 is elevated at 1.49. She does not appear to be symptomatic at this time. Therefore, I will hold off on starting any treatment for this and await recommendations from Dr. Mark. 6. Parkinson's disease. Continue Sinemet 25/100 three tabs p.o. 3 times daily. 7. Bipolar disorder. Continue clonazepam 0.5 mg p.o. t.i.d. and sertraline 150 mg daily. 8. Neurogenic bladder. The patient has a chronic indwelling Capellan catheter. I have put in for a Capellan change. The patient has also been on Flomax. I am going to discontinue this at this time. 9. Chronic obstructive pulmonary disease. The patient is O2 dependent. Her O2 requirements recently have become continuous as opposed to intermittent. Because of this, I will obtain a chest x-ray to evaluate for infiltrate or any other findings. 10. DVT prophylaxis: According to the Adult Thrombosis Prophylaxis Risk Factor Assessment Guide, the patient has a total risk factor score of 3, making her high risk. She will be placed on Lovenox 30 mg subcutaneous daily as her renal function is not at baseline. 11. Code status is full. TIME SPENT: 65 minutes was spent admitting this patient. [id number]/[facility] #: [id number] NEMO
[2019-05-09] MEDS: Calcitonin (Salmon) INJ* 200 UNITS/ML 2 ML VIAL SUBCUT SCH (20:22)
[2019-05-09] MEDS: clonazePAM TAB(*) 0.5 MG PO SCH (20:23)
[2019-05-09] MEDS: Mirtazapine TAB* 15 MG PO SCH (20:23)
[2019-05-09] MEDS: Enoxaparin(*) 30 MG/0.3 ML SYR SUBCUT SCH (20:23)
[2019-05-09] MEDS: Carbidopa/Levodop 25/100 MG TAB(*) PO SCH (20:23)
[2019-05-09] MEDS: lamoTRIgine TAB(*) 100 MG PO SCH (20:24)
[2019-05-09] MEDS: Lithium Carbonate CAP 150 MG ** CAPSULE PO SCH (22:04)
[2019-05-09] MEDS: Lactulose* 15 ML UDC PO SCH (22:04)
[2019-05-09] MEDS: Ondansetron INJ* 2 MG/ML VIAL IV PRN (22:38)
[2019-05-10] MEDS: Calcitonin (Salmon) INJ* 200 UNITS/ML 2 ML VIAL SUBCUT SCH ×2 (01:50→06:34)
[2019-05-10] MEDS: NS 0.9% 1000 ML** 1,000 ML IV SCH (02:16)
[2019-05-10] MEDS ORDERED: Ketorolac INJ* 15 MG/ML 1 ML VIAL IV PUSH ONE (04:15)
[2019-05-10] MEDS: Ondansetron INJ* 2 MG/ML VIAL IV PRN ×2 (04:27→11:46)
[2019-05-10 06:13] LABS: BUN/Creatinine Ratio 19.3 (8-20); Calcium 10.3 mg/dL (8.6-10.3); EGFR African American 76.4 (>60); EGFR Non-African American 63.2 (>60); Potassium 3.8 mmol/L (3.5-5.0)
[2019-05-10] MEDS: Mometasone/Formoter 200/5 MDI INH SCH ×2 (08:12→20:36)
[2019-05-10] MEDS: SPIRIVA Respimat* (tiotropium) 2.5 mcg/inh Inhaler INH SCH (08:12)
[2019-05-10] MEDS ORDERED: Tiotropium CAPSULE (NF) 1 CAP/18 MCG CAP.INH INH SCH (09:00)
[2019-05-10] MEDS: PROCHLORPERAZINE INJ 5 MG/ML 2 ML VIAL IV PRN ×2 (09:16→20:39)
--- NOTE | 2019-05-10 10:06 | PN ---
Subjective Date of Service: 05/10/19 Interval History: Pt has been sleeping most of the morning. She has been vomiting quite a bit following the administration of calcitonin. Objective Active Medications: Aspirin (Aspirin Ec Tab*) 81 mg PO QAM [facility] Carbidopa/Levodopa (Sinemet 25/100 Tab(*)) 3 tab PO TID [facility] Last Admin: 05/09/19 20:23 Dose: 3 tab Clonazepam (Klonopin Tab(*)) 0.5 mg PO TID [facility] Last Admin: 05/09/19 20:23 Dose: 0.5 mg Docusate Sodium (Colace Cap*) 100 mg PO BID PRN PRN Reason: CONSTIPATION Enoxaparin Sodium (Lovenox(*)) 30 mg SUBCUT Q24H [facility] Last Admin: 05/09/19 20:23 Dose: 30 mg Ceftriaxone Sodium 1 gm/ (Sodium Chloride) 50 mls @ 100 mls/hr IVPB Q24H [facility] Sodium Chloride (Ns 0.9% 1000 Ml) 1,000 mls @ 150 mls/hr IV PER RATE [facility] Last Admin: 05/10/19 02:16 Dose: 150 mls/hr Lactulose (Lactulose*) 15 ml PO TID [facility] Last Admin: 05/09/19 22:04 Dose: 15 ml Lamotrigine (Lamictal Tab(*)) 100 mg PO BID [facility] Last Admin: 05/09/19 20:24 Dose: 100 mg [place] Carbonate ([place] Carbonate Cap) 450 mg PO BEDTIME [facility] Last Admin: 05/09/19 22:04 Dose: 450 mg Magnesium Oxide (Magox 400 Tab*) 400 mg PO DAILY [facility] Mirtazapine (Remeron Tab*) 7.5 mg PO BEDTIME [facility] Last Admin: 05/09/19 20:23 Dose: 7.5 mg Mometasone Furoate/Formoterol Fumar (Dulera 200/5 Mdi*) 2 puff INH BID [facility]; Protocol Last Admin: 05/10/19 08:12 Dose: 2 puff Ondansetron HCl (Zofran Inj*) 4 mg IV Q6H PRN PRN Reason: NAUSEA/VOMITING Last Admin: 05/10/19 04:27 Dose: 4 mg Pantoprazole Sodium (Protonix Tab*) 40 mg PO QAM [facility] Prochlorperazine Edisylate (Compazine Inj*) 10 mg IV Q6H PRN PRN Reason: NAUSEA/VOMITING Last Admin: 05/10/19 09:16 Dose: 10 mg Sertraline HCl (Zoloft*) 150 mg PO DAILY [facility] Tiotropium [place] (Spiriva Respimat 2.5 Mcg) 2 puff INH DAILY [facility] Last Admin: 05/10/19 08:12 Dose: 2 puff Vital Signs - 8 hr 05/10/19 05/10/19 03:04 08:17 Temperature 98.7 F Pulse Rate 92 95 Respiratory 18 20 Rate Blood Pressure 114/63 (mmHg) O2 Sat by Pulse 95 92 Oximetry Oxygen Devices in Use Now: Nasal Cannula Appearance: Petite elderly female sitting up in bed, sleeping, awakens very briefly but does not talk to me and then promptly falls alseep. Eyes: No Scleral Icterus Ears/Nose/Mouth/Throat: Mucous Membranes Moist Respiratory: Symmetrical Chest Expansion and Respiratory Effort, Clear to Auscultation - anteriorly Cardiovascular: NL Sounds; No Murmurs; No JVD, RRR, No Edema Abdominal: NL Sounds; No Tenderness; No Distention Extremities: No Clubbing, Cyanosis Skin: No Nodules or Sclerosis, - - incision Neurological: - - lethargic Result Diagrams: 05/09/19 13:16 05/10/19 05:27 Assess/Plan/Problems-Billing Ms Nelson is a 74 yo F who has a h/o hyperparathyroidism who underwent parathyroidectomy on 05/01/19, Parkinson's, bipolar disorder and O2 dependent COPD who presented to the ER with c/o confusion and increased weakness and was found to have a UTI and markedly elevated calcium. - Patient Problems (1) UTI (urinary tract infection) Current Visit: Yes Status: Acute Comment: Pt with chronic espinoza for likely neurogenic bladder. Urinalysis markedly abnormal yesterday. Will continue ceftriaxone and await the urine culture. Espinoza catheter was changed today. (2) Hypercalcemia Current Visit: Yes Status: Acute Code(s): E83.52 - HYPERCALCEMIA SNOMED Code(s): 49254276 Comment: Pt's calcium postoperatively was normal. Yesterday on presentation to the ER her calcium was markedly elevated at 13.7. Dr Mark saw the patient and recommended aggressive IVF recussitation and initiation of calcitonin 4units /kg q6hr x4 doses. She has received 3 doses and developed vomiting after each one. As her calcium normalized today, I have disconitnued the last dose of calcitonin. She is off her vitamin D supplementation. Will get follow up BMP tomorrow to recheck the calcium level. She will need to follow up with Dr. Mark as an outpatient for further managment. (3) Parkinson disease Current Visit: Yes Status: Acute Code(s): G20 - PARKINSON'S DISEASE SNOMED Code(s): 30919580 Comment: Continue sinemet 25/100, 3 tab TID. (4) Bipolar disorder Current Visit: Yes Status: Acute Code(s): F31.9 - BIPOLAR DISORDER, UNSPECIFIED SNOMED Code(s): 57491085 Comment: Stable, continue lithium, lamictal and sertraline. (5) DVT prophylaxis Current Visit: Yes Status: Acute Code(s): LGQ6753 - SNOMED Code(s): 098505097 Comment: lovenox (6) Full code status Current Visit: Yes Status: Acute Code(s): Z78.9 - OTHER SPECIFIED HEALTH STATUS SNOMED Code(s): 204521552 Comment:
[2019-05-10] MEDS: Carbidopa/Levodop 25/100 MG TAB(*) PO SCH ×3 (11:46→20:38)
[2019-05-10] MEDS: lamoTRIgine TAB(*) 100 MG PO SCH ×2 (12:09→20:39)
[2019-05-10] MEDS: Magnesium Oxide TAB* 400 MG PO SCH (12:09)
[2019-05-10] MEDS: Pantoprazole TAB * 40 MG TAB PO SCH (12:10)
[2019-05-10] MEDS: Sertraline* 100 MG TAB PO SCH (12:40)
[2019-05-10] MEDS: Aspirin EC TAB* 81 MG TAB.EC PO SCH (12:41)
[2019-05-10] MEDS: Lactulose* 15 ML UDC PO SCH ×3 (12:41→20:52)
[2019-05-10] MEDS: clonazePAM TAB(*) 0.5 MG PO SCH ×3 (12:48→20:39)
[2019-05-10] MEDS: cefTRIAXone(*) 1 GM in NS 0.9% 50 ML* 50 ML IVPB SCH (15:42)
[2019-05-10] MEDS: Enoxaparin(*) 30 MG/0.3 ML SYR SUBCUT SCH (15:42)
[2019-05-10] MEDS: Mirtazapine TAB* 15 MG PO SCH (20:37)
[2019-05-10] MEDS: Lithium Carbonate CAP 150 MG ** CAPSULE PO SCH (20:52)
[2019-05-11] MEDS: SPIRIVA Respimat* (tiotropium) 2.5 mcg/inh Inhaler INH SCH ×2 (07:52→07:53)
[2019-05-11] MEDS: Mometasone/Formoter 200/5 MDI INH SCH ×2 (07:53→19:15)
[2019-05-11] MEDS: clonazePAM TAB(*) 0.5 MG PO SCH ×3 (08:12→20:53)
[2019-05-11] MEDS: lamoTRIgine TAB(*) 100 MG PO SCH ×2 (08:12→20:54)
[2019-05-11] MEDS: Aspirin EC TAB* 81 MG TAB.EC PO SCH (08:12)
[2019-05-11] MEDS: Carbidopa/Levodop 25/100 MG TAB(*) PO SCH ×3 (08:12→20:56)
[2019-05-11] MEDS: Sertraline* 100 MG TAB PO SCH (08:12)
[2019-05-11] MEDS: Magnesium Oxide TAB* 400 MG PO SCH (08:12)
[2019-05-11] MEDS: Pantoprazole TAB * 40 MG TAB PO SCH (08:12)
[2019-05-11] MEDS: Lactulose* 15 ML UDC PO SCH ×4 (08:13→20:57)
--- NOTE | 2019-05-11 11:12 | PN ---
Subjective Date of Service: 05/11/19 Interval History: Pt is feeling ok today. Much less tired than yesterday. Yesterday afternoon she perked up, ate some ice cream and a little bit of dinner. This AM she has refused to eat except for popsicles. Her wonders about using the PEG tube temporarily. She denies any pain. No SOB. She got up to the chair yesterday but was very weak. Her does think she has improved since admission but still is not at baseline. Objective Active Medications: Aspirin (Aspirin Ec Tab*) 81 mg PO QAM [facility] Last Admin: 05/11/19 08:12 Dose: 81 mg Carbidopa/Levodopa (Sinemet 25/100 Tab(*)) 3 tab PO TID [facility] Last Admin: 05/11/19 08:12 Dose: 3 tab Clonazepam (Klonopin Tab(*)) 0.5 mg PO TID [facility] Last Admin: 05/11/19 08:12 Dose: 0.5 mg Docusate Sodium (Colace Cap*) 100 mg PO BID PRN PRN Reason: CONSTIPATION Enoxaparin Sodium (Lovenox(*)) 30 mg SUBCUT Q24H [facility] Last Admin: 05/10/19 15:42 Dose: 30 mg Ceftriaxone Sodium 1 gm/ (Sodium Chloride) 50 mls @ 100 mls/hr IVPB Q24H [facility] Last Admin: 05/10/19 15:42 Dose: 100 mls/hr Lactulose (Lactulose*) 15 ml PO TID [facility] Last Admin: 05/11/19 08:13 Dose: 15 ml Lamotrigine (Lamictal Tab(*)) 100 mg PO BID [facility] Last Admin: 05/11/19 08:12 Dose: 100 mg [place] Carbonate ([place] Carbonate Cap) 450 mg PO BEDTIME [facility] Last Admin: 05/10/19 20:52 Dose: 450 mg Magnesium Hydroxide (Milk Of Magnesia Liq*) 30 ml PO Q4H PRN PRN Reason: CONSTIPATION Magnesium Oxide (Magox 400 Tab*) 400 mg PO DAILY [facility] Last Admin: 05/11/19 08:12 Dose: 400 mg Mirtazapine (Remeron Tab*) 7.5 mg PO BEDTIME [facility] Last Admin: 05/10/19 20:37 Dose: 7.5 mg Mometasone Furoate/Formoterol Fumar (Dulera 200/5 Mdi*) 2 puff INH BID [facility]; Protocol Last Admin: 05/11/19 07:53 Dose: 2 puff Ondansetron HCl (Zofran Inj*) 4 mg IV Q6H PRN PRN Reason: NAUSEA/VOMITING Last Admin: 05/10/19 11:46 Dose: 4 mg Pantoprazole Sodium (Protonix Tab*) 40 mg PO QAM [facility] Last Admin: 05/11/19 08:12 Dose: 40 mg Prochlorperazine Edisylate (Compazine Inj*) 10 mg IV Q6H PRN PRN Reason: NAUSEA/VOMITING Last Admin: 05/10/19 20:39 Dose: 10 mg Sertraline HCl (Zoloft*) 150 mg PO DAILY [facility] Last Admin: 05/11/19 08:12 Dose: 150 mg Tiotropium [place] (Spiriva Respimat 2.5 Mcg) 2 puff INH DAILY [facility] Last Admin: 05/11/19 07:53 Dose: Not Given Vital Signs - 8 hr 05/11/19 05/11/19 07:15 08:12 Temperature 98.2 F Pulse Rate 74 Respiratory 16 18 Rate Blood Pressure 121/73 (mmHg) O2 Sat by Pulse 96 Oximetry Oxygen Devices in Use Now: Nasal Cannula Appearance: Elderly female sitting up in bed, NAD Eyes: No Scleral Icterus Ears/Nose/Mouth/Throat: Mucous Membranes Moist Respiratory: Symmetrical Chest Expansion and Respiratory Effort, Clear to Auscultation - few crackles at the bases Cardiovascular: NL Sounds; No Murmurs; No JVD, RRR, No Edema Abdominal: NL Sounds; No Tenderness; No Distention, - - PEG tube in place Extremities: No Clubbing, Cyanosis Skin: No Nodules or Sclerosis Neurological: - - alert, pleasantly confused Result Diagrams: 05/09/19 13:16 05/10/19 05:27 Microbiology and Other Data: Microbiology 05/09/19 13:30 Urine Culture - Final Urine Klebsiella Pneumoniae Assess/Plan/Problems-Billing Ms Nelson is a 74 yo F who has a h/o hyperparathyroidism who underwent parathyroidectomy on 05/01/19, Parkinson's, bipolar disorder and O2 dependent COPD who presented to the ER with c/o confusion and increased weakness and was found to have a UTI and markedly elevated calcium. - Patient Problems (1) UTI (urinary tract infection) Current Visit: Yes Status: Acute Comment: Pt with chronic espinoza for likely neurogenic bladder. Urine grew K pneumoniae. Will continue ceftriaxone today then can be changed to keflex 500mg BID x 4 more days. (2) Hypercalcemia Current Visit: Yes Status: Acute Code(s): E83.52 - HYPERCALCEMIA SNOMED Code(s): 03148071 Comment: Labs pending for this AM. She is off the calcitonin and IVF. Await Ca level this AM. Continue to hold vitamin D. Follow up with Dr. Mark after d/ c. (3) Parkinson disease Current Visit: Yes Status: Acute Code(s): G20 - PARKINSON'S DISEASE SNOMED Code(s): 37482385 Comment: Continue sinemet 25/100, 3 tab TID. PMRU eval in given pt's debility following surgery with post op course complicated by UTI and hypercalcemia. (4) Bipolar disorder Current Visit: Yes Status: Acute Code(s): F31.9 - BIPOLAR DISORDER, UNSPECIFIED SNOMED Code(s): 66920352 Comment: Stable, continue lithium, lamictal and sertraline. (5) DVT prophylaxis Current Visit: Yes Status: Acute Code(s): KRD4776 - SNOMED Code(s): 067848239 Comment: lovenox (6) Full code status Current Visit: Yes Status: Acute Code(s): Z78.9 - OTHER SPECIFIED HEALTH STATUS SNOMED Code(s): 413827081 Comment:
[2019-05-11 11:40] LABS: BUN/Creatinine Ratio 18.7 (8-20); Calcium 9.9 mg/dL (8.6-10.3); EGFR African American 91.9 (>60); Potassium 3.5 mmol/L (3.5-5.0)
[2019-05-11] MEDS: Magnesium Hydroxide LIQ* 30 ML UDC PO PRN ×2 (14:55→20:57)
[2019-05-11] MEDS: cefTRIAXone(*) 1 GM in NS 0.9% 50 ML* 50 ML IVPB SCH (14:55)
[2019-05-11] MEDS: Enoxaparin(*) 30 MG/0.3 ML SYR SUBCUT SCH (17:54)
[2019-05-11] MEDS: Mirtazapine TAB* 15 MG PO SCH (20:54)
[2019-05-11] MEDS: Lithium Carbonate CAP 150 MG ** CAPSULE PO SCH (20:56)
[2019-05-12 06:47] LABS: BUN/Creatinine Ratio 18.1 (8-20); Calcium 9.4 mg/dL (8.6-10.3); EGFR African American 96.3 (>60); EGFR Non-African American 79.6 (>60); Potassium 3.6 mmol/L (3.5-5.0)
[2019-05-12] MEDS: Mometasone/Formoter 200/5 MDI INH SCH ×2 (08:17→20:08)
[2019-05-12] MEDS: SPIRIVA Respimat* (tiotropium) 2.5 mcg/inh Inhaler INH SCH (08:17)
[2019-05-12] MEDS: Pantoprazole TAB * 40 MG TAB PO SCH (09:18)
[2019-05-12] MEDS: lamoTRIgine TAB(*) 100 MG PO SCH ×2 (09:18→19:57)
[2019-05-12] MEDS: Magnesium Oxide TAB* 400 MG PO SCH (09:19)
[2019-05-12] MEDS: Sertraline* 100 MG TAB PO SCH (09:19)
[2019-05-12] MEDS: clonazePAM TAB(*) 0.5 MG PO SCH ×3 (09:20→19:57)
[2019-05-12] MEDS: Aspirin EC TAB* 81 MG TAB.EC PO SCH (09:20)
[2019-05-12] MEDS: Carbidopa/Levodop 25/100 MG TAB(*) PO SCH ×3 (09:20→19:56)
[2019-05-12] MEDS: Lactulose* 15 ML UDC PO SCH ×3 (09:20→19:57)
[2019-05-12] MEDS: Magnesium Hydroxide LIQ* 30 ML UDC PO PRN (09:29)
[2019-05-12] MEDS ORDERED: Acetaminophen TAB* 325 MG PO PRN (10:57)
[2019-05-12] MEDS: cefTRIAXone(*) 1 GM in NS 0.9% 50 ML* 50 ML IVPB SCH ×2 (15:26→16:00)
[2019-05-12] MEDS: Enoxaparin(*) 30 MG/0.3 ML SYR SUBCUT SCH (16:15)
--- NOTE | 2019-05-12 16:21 | PN ---
Subjective Date of Service: 05/12/19 Interval History: No overnight events. Cyndi is feeling well today. She has no complaints. Matthew thinks she is doing very well also--back to her baseline mental status. They are interested in restarting her tube feeds and she has no had a bowel movement for 4 days. She denies nausea, abd pain. Objective Active Medications: Acetaminophen (Tylenol Tab*) 650 mg PO Q6H PRN PRN Reason: PAIN - MILD Last Admin: 05/12/19 11:09 Dose: 650 mg Aspirin (Aspirin Ec Tab*) 81 mg PO QAM [facility] Last Admin: 05/12/19 09:20 Dose: 81 mg Carbidopa/Levodopa (Sinemet 25/100 Tab(*)) 3 tab PO TID [facility] Last Admin: 05/12/19 15:25 Dose: 3 tab Clonazepam (Klonopin Tab(*)) 0.5 mg PO TID [facility] Last Admin: 05/12/19 15:25 Dose: 0.5 mg Docusate Sodium (Colace Cap*) 100 mg PO BID PRN PRN Reason: CONSTIPATION Enoxaparin Sodium (Lovenox(*)) 30 mg SUBCUT Q24H [facility] Last Admin: 05/12/19 16:15 Dose: 30 mg Ceftriaxone Sodium 1 gm/ (Sodium Chloride) 50 mls @ 100 mls/hr IVPB Q24H [facility] Last Admin: 05/12/19 16:00 Dose: 100 mls/hr Lactulose (Lactulose*) 15 ml PO TID [facility] Last Admin: 05/12/19 15:25 Dose: 15 ml Lamotrigine (Lamictal Tab(*)) 100 mg PO BID [facility] Last Admin: 05/12/19 09:18 Dose: 100 mg [place] Carbonate ([place] Carbonate Cap) 450 mg PO BEDTIME [facility] Last Admin: 05/11/19 20:56 Dose: 450 mg Magnesium Hydroxide (Milk Of Magnesia Liq*) 30 ml PO Q4H PRN PRN Reason: CONSTIPATION Last Admin: 05/12/19 09:29 Dose: 30 ml Magnesium Oxide (Magox 400 Tab*) 400 mg PO DAILY [facility] Last Admin: 05/12/19 09:19 Dose: 400 mg Mirtazapine (Remeron Tab*) 7.5 mg PO BEDTIME [facility] Last Admin: 05/11/19 20:54 Dose: 7.5 mg Mometasone Furoate/Formoterol Fumar (Dulera 200/5 Mdi*) 2 puff INH BID [facility]; Protocol Last Admin: 05/12/19 08:17 Dose: 2 puff Ondansetron HCl (Zofran Inj*) 4 mg IV Q6H PRN PRN Reason: NAUSEA/VOMITING Last Admin: 05/10/19 11:46 Dose: 4 mg Pantoprazole Sodium (Protonix Tab*) 40 mg PO QAM [facility] Last Admin: 05/12/19 09:18 Dose: 40 mg Prochlorperazine Edisylate (Compazine Inj*) 10 mg IV Q6H PRN PRN Reason: NAUSEA/VOMITING Last Admin: 05/10/19 20:39 Dose: 10 mg Sertraline HCl (Zoloft*) 150 mg PO DAILY [facility] Last Admin: 05/12/19 09:19 Dose: 150 mg Tiotropium [place] (Spiriva Respimat 2.5 Mcg) 2 puff INH DAILY [facility] Last Admin: 05/12/19 08:17 Dose: 2 puff Vital Signs - 8 hr 05/12/19 05/12/19 05/12/19 08:18 09:20 11:09 Temperature 98.0 F Pulse Rate 67 73 Respiratory 16 14 14 Rate Blood Pressure 102/64 (mmHg) O2 Sat by Pulse 98 97 Oximetry 05/12/19 05/12/19 11:20 15:25 Temperature Pulse Rate Respiratory 14 16 Rate Blood Pressure (mmHg) O2 Sat by Pulse Oximetry Oxygen Devices in Use Now: Nasal Cannula Appearance: alert, well appearing Eyes: No Scleral Icterus, - - left eyelid is edematous; face is otherwise symmetric Ears/Nose/Mouth/Throat: NL Teeth, Lips, Gums Neck: NL Appearance and Movements; NL JVP Respiratory: Symmetrical Chest Expansion and Respiratory Effort Cardiovascular: NL Sounds; No Murmurs; No JVD, RRR Abdominal: - - J-tube and espinoza in place Lymphatic: No Cervical Adenopathy Extremities: No Edema Skin: No Rash or Ulcers Result Diagrams: 05/09/19 13:16 05/12/19 06:12 Microbiology and Other Data: Microbiology 05/09/19 13:30 Urine Culture - Final Urine Klebsiella Pneumoniae Assess/Plan/Problems-Billing Ms Weidberg is a 74 yo F who has a h/o hyperparathyroidism who underwent parathyroidectomy on 05/01/19, Parkinson's, bipolar disorder and O2 dependent COPD who presented to the ER with c/o confusion and increased weakness and was found to have a UTI and markedly elevated calcium. - Patient Problems (1) Hypercalcemia Current Visit: Yes Status: Acute Code(s): E83.52 - HYPERCALCEMIA SNOMED Code(s): 84084589 Comment: Resolved. Likely multifactorial and related to lithium, immobility, dehydration. She is off the calcitonin and IVF. Continue to hold vitamin D. Follow up with Dr. Mark after d/c. (2) Bipolar disorder Current Visit: Yes Status: Acute Code(s): F31.9 - BIPOLAR DISORDER, UNSPECIFIED SNOMED Code(s): 00232976 Comment: Stable, continue lithium, lamictal and sertraline. (3) Parkinson disease Current Visit: Yes Status: Acute Code(s): G20 - PARKINSON'S DISEASE SNOMED Code(s): 12865382 Comment: Continue sinemet 25/100, 3 tab TID. PMRU eval in given pt's debility following surgery with post op course complicated by UTI and hypercalcemia, however she refused to work with them. (4) UTI (urinary tract infection) Current Visit: Yes Status: Acute Comment: Pt with chronic espinoza for likely neurogenic bladder. Urine grew K pneumoniae. Today is ceftriaxone day 4; will switch to keflex (5) Constipation Current Visit: No Status: Acute Code(s): K59.00 - CONSTIPATION, UNSPECIFIED SNOMED Code(s): 04081119 Comment: Likely from immobility and hypercalcemia (on presentation), Parkinsons, and medications. Continue Lactulose and milk of magnesia (6) Neurogenic bladder Current Visit: No Status: Acute Code(s): N31.9 - NEUROMUSCULAR DYSFUNCTION OF BLADDER, UNSPECIFIED SNOMED Code(s): 209084893 Comment: chronic espinoza (7) COPD (chronic obstructive pulmonary disease) Current Visit: No Status: Chronic Priority: High Code(s): J44.9 - CHRONIC OBSTRUCTIVE PULMONARY DISEASE, UNSPECIFIED SNOMED Code(s): 85781626 Comment: has been on 2L home o2 PRN
[2019-05-12] MEDS: Lithium Carbonate CAP 150 MG ** CAPSULE PO SCH (19:56)
[2019-05-12] MEDS: Mirtazapine TAB* 15 MG PO SCH (19:57)
[2019-05-13 06:10] LABS: ABS Eosinophils 0.2 10^3/ul (0-0.6); ABS Lymphocytes 1.4 10^3/ul (1.0-4.8); ABS Monocytes 0.4 10^3/ul (0-0.8); ABS Neutrophils 3.1 10^3/ul (1.5-7.7); Eosinophil % 4.3 %; Hematocrit 34 % (35-47); Hemoglobin 11.3 g/dL (12.0-16.0); Lymphocyte % 26.6 %; Mean Corpuscular HGB Conc 33 g/dL (31-36); Mean Corpuscular Hemoglobin 30 pg (27-31); Mean Corpuscular Volume 91 fL (80-97); Mean Platelet Volume 9.3 fL (7.4-10.4); Nucleated Red Blood Cells % 0.1; Platelet Count 258 10^3/uL (150-450); Red Blood Count 3.78 10^6 /uL (3.70-4.87); Red Cell Distribution Width 14 % (10-15); White Blood Count 5.1 10^3/uL (3.5-10.8)
[2019-05-13 06:19] LABS: BUN/Creatinine Ratio 22.6 (8-20); Calcium 8.7 mg/dL (8.6-10.3); EGFR African American 114.5 (>60); EGFR Non-African American 94.6 (>60); Potassium 3.3 mmol/L (3.5-5.0)
[2019-05-13] MEDS ORDERED: Cephalexin CAP* 500 MG PO SCH (09:00)
[2019-05-13] MEDS: Aspirin EC TAB* 81 MG TAB.EC PO SCH (09:32)
[2019-05-13] MEDS: Sertraline* 100 MG TAB PO SCH (09:32)
[2019-05-13] MEDS: Carbidopa/Levodop 25/100 MG TAB(*) PO SCH ×2 (09:32→14:08)
[2019-05-13] MEDS: Lactulose* 15 ML UDC PO SCH ×2 (09:33→14:08)
[2019-05-13] MEDS: Pantoprazole TAB * 40 MG TAB PO SCH (09:33)
[2019-05-13] MEDS: Magnesium Oxide TAB* 400 MG PO SCH (09:33)
[2019-05-13] MEDS: clonazePAM TAB(*) 0.5 MG PO SCH ×2 (09:33→14:08)
[2019-05-13] MEDS: lamoTRIgine TAB(*) 100 MG PO SCH (09:33)
[2019-05-13] MEDS: SPIRIVA Respimat* (tiotropium) 2.5 mcg/inh Inhaler INH SCH (09:47)
[2019-05-13] MEDS: Mometasone/Formoter 200/5 MDI INH SCH (09:48)
[2019-05-13 11:25] VITALS: BP 126/64
--- NOTE | 2019-05-13 21:46 | DS ---
CC: Dr. Angela Leal; Dr. Mahoney Coch * DISCHARGE SUMMARY: DATE OF ADMISSION: 05/10/19 DATE OF DISCHARGE: 05/13/19 PRINCIPAL DISCHARGE DIAGNOSES: 1. Hypercalcemia. 2. Metabolic encephalopathy. 3. Catheter-associated urinary tract infection. 4. Acute kidney injury. SECONDARY DISCHARGE DIAGNOSES: 1. Parkinson disease. 2. Neurogenic bladder. 3. Chronic hypoxic respiratory failure. 4. Bipolar. MEDICATIONS FOR DISCHARGE: 1. Lamotrigine 100 mg b.i.d. 2. Klonopin 0.5 mg t.i.d. 3. Omeprazole 40 mg daily. 4. Sertraline 150 mg daily. 5. Flomax 0.4 mg q.h.s. 6. Symbicort 2 puffs b.i.d. 7. Spiriva 1 cap inhaled daily. 8. Vitamin B12, 250 mg b.i.d. 9. Zofran 4 mg q.6 p.r.n. nausea. 10. Lactulose 15 mL t.i.d. 11. Probiotic 1 tab daily. 12. Mirtazapine 7.5 mg q.h.s. 13. Macrobid 100 mg daily to be resumed after 2 more days of Keflex. 14. Magnesium oxide 400 mg daily. 15. Docusate 100 mg b.i.d. p.r.n. constipation. 16. Aspirin 81 mg daily. 17. [place] 450 mg q.h.s. 18. Sinemet 25/100, 3 tabs t.i.d. 19. Keflex 500 mg b.i.d. for 2 more days. PHYSICAL EXAM AT DISCHARGE: Temperature 98.2, heart rate 78, respiratory rate 18, pulse ox 98% on 2 L, blood pressure 126/64. General: Alert, well- appearing female, in no distress. She is resting comfortably in bed with her at the bedside. HEENT: Pupils equal, round, and reactive to light. Oral mucosa is moist. Neck: No JVD, no adenopathy. Chest is in regular rate and rhythm with no murmurs. Her lungs are clear bilaterally. Abdomen: A J- tube is in place. Abdomen is soft, nontender, nondistended with no CVA tenderness. Chronic indwelling Capellan is present. Extremities: No edema, rashes, or ulcers. Neurologic: She had bradykinesia and delayed responses to my questions, but answers them appropriately and coherently. HOSPITAL COURSE BY PROBLEM: 1. Metabolic encephalopathy. This was thought to be most likely related to hypercalcemia. She was also noticed to have an UTI, however, I suspect hypercalcemia more likely to have contributed to her metabolic encephalopathy. After her calcium returned to normal, her encephalopathy resolves entirely and she was back to her baseline mental status. 2. Hypercalcemia. She was admitted with a calcium of 13.7. Dr. Mark saw her in the emergency department and recommended a normal saline fluid resuscitation , avoiding calcium containing foods including Tums and vitamin D, which she had been taking at home since her parathyroidectomy 4 days prior. He suspected that despite the parathyroidectomy, there was naturally some leftover parathyroid tissue and due to chronic lithium use, the remaining parathyroid tissue continues to be hyperfunctioning and in combination with supplemental Tums and vitamin D postoperatively, this combination led her to be so hypercalcemic. She did receive 4 doses of calcitonin and her discharge calcium is 8.7. 3. Catheter-associated UTI. Her urine grew Klebsiella and she was treated with ceftriaxone while she was here. She is being discharged on 2 more days of Keflex and then she will return to her home dose of Macrobid. 4. Acute kidney injury likely related to hypercalcemia. It resolved with volume resuscitation. 5. Parkinsonism. She was continued on Sinemet. 6. Neurogenic bladder. Her Capellan catheter was exchanged on this admission. 7. Chronic hypoxic respiratory failure. She was continued on her 2 L of home oxygen. 8. Bipolar. She was continued on lithium despite the hypercalcemia based on a long history of success with lithium. 9. Disposition. Cyndi is being discharged to home with her , which was her request. They have home PT and VNS setup. Regarding her nutrition, she did need to be started on tube feeds while she was here, which was the first time she has required that due to not feeling well and not eating. However, by the time of discharge, she was eating a regular diet. However, after discussion with Matthew and the registered dietitian and knowing Cyndi's history well and that when she gets sick she cannot eat, we decided to send Matthew home with supplies for tube feeds in case she stops eating again so that he can use cans of tube feeds at his discretion and he received education from our top case assembler, our dietitian and will receive further education from [facility] nurses. CONDITION AT THE TIME OF DISCHARGE: Stable. [id number]/CPS #: [id number] NEMO
[2019-05-14 15:09] LABS: PTH Related Peptide <0.4 pmol/L (< or = 4.2)
[2019-05-14 23:20] LABS: Calcitriol <8.0 pg/mL (18-78)
== END 2019-05-13 15:10 | disposition home health service (06) | DRG 698 ==
LOC: ED 12:27 → MED 16:03 → OBSVTOIN 05-10 16:26
PROVIDERS: ADMIT Hospitalist; ATTEND Internal Medicine
DX: T83.518A Infection and inflammatory reaction due to other urinary catheter, initial encounter (principal); G93.41 Metabolic encephalopathy; N39.0 Urinary tract infection, site not specified; N17.9 Acute kidney failure, unspecified; J96.11 Chronic respiratory failure with hypoxia; Y73.1 Therapeutic (nonsurgical) and rehabilitative gastroenterology and urology devices associated with adverse incidents; G20 Parkinson's disease; N31.9 Neuromuscular dysfunction of bladder, unspecified; F31.9 Bipolar disorder, unspecified; G31.84 Mild cognitive impairment of uncertain or unknown etiology; J44.9 Chronic obstructive pulmonary disease, unspecified; Z96.651 Presence of right artificial knee joint; E89.2 Postprocedural hypoparathyroidism; E05.90 Thyrotoxicosis, unspecified without thyrotoxic crisis or storm; K21.9 Gastro-esophageal reflux disease without esophagitis; F02.80 Dementia in other diseases classified elsewhere, unspecified severity, without behavioral disturbance, psychotic disturbance, mood disturbance, and anxiety; R40.2362 Coma scale, best motor response, obeys commands, at arrival to emergency department; E83.52 Hypercalcemia; R40.2142 Coma scale, eyes open, spontaneous, at arrival to emergency department; R40.2252 Coma scale, best verbal response, oriented, at arrival to emergency department; K59.00 Constipation, unspecified; Z79.899 Other long term (current) drug therapy; Y92.9 Unspecified place or not applicable; Z79.51 Long term (current) use of inhaled steroids; Z79.82 Long term (current) use of aspirin; Z99.81 Dependence on supplemental oxygen; Z88.2 Allergy status to sulfonamides; Z88.1 Allergy status to other antibiotic agents; Z88.0 Allergy status to penicillin; Z87.891 Personal history of nicotine dependence
CPT/HCPCS: 36415; 70450; 71045; 80048; 80053; 80178; 81003; 81015; 82397; 82652; 83970; 84439; 84443; 84484; 85025; 87077; 87086; 87186; 93005; 94640; 99284; A9270-GY; J0630; J0696; J0780; J1650; J1885; J2405; J3535

== ENCOUNTER 2020-02-05 10:03 | Inpatient (IN) ==
[2020-02-05] MEDS ORDERED: Carbidopa/Levodop 25/100 MG TAB PO ONE (10:35)
[2020-02-05] MEDS ORDERED: Vancomycin 1,000 MG in NS 0.9% 250 ml 250 ML IVPB ONE (10:51)
[2020-02-05] MEDS ORDERED: Vancomycin per Pharmacy 1 EA NOTE FOLLOW UP SCH (11:00)
[2020-02-05] MEDS: NS 0.9% 1000 ml BAG 1,000 ML IV SCH (11:41)
[2020-02-05] MEDS ORDERED: Ondansetron 4 mg VIAL 2 MG/ML 2 ml VIAL IV ONE (12:55)
[2020-02-05] MEDS ORDERED: cefTRIAXone 1 gm/50 mL NS BAG 1 GM/50 ML BAG IVPB SCH (13:00)
[2020-02-05] MEDS: Carbidopa/Levodop 25/100 MG TAB PO SCH ×2 (16:26→21:01)
[2020-02-05] MEDS ORDERED: NS 0.9% 500 ml BAG 500 ML IV SCH (18:00)
[2020-02-05] MEDS: Mometasone/Formoter 200/5 MDI INH SCH (20:09)
[2020-02-05] MEDS: Lithium Carbonate ER 450mg TAB PO SCH (20:49)
[2020-02-05] MEDS: Enoxaparin 40 MG/0.4 ML SYR SUBCUT SCH (20:49)
[2020-02-05] MEDS: Carbidopa/Levodop CR 50/200 TAB.CR PO SCH (21:00)
[2020-02-05] MEDS ORDERED: Carbidopa/Levodopa ER 25/100 TABLET.ER PO SCH (21:00)
[2020-02-05] MEDS ORDERED: Lactated Ringers 500 ml BAG 500 ML IV ONE (22:37)
[2020-02-06] MEDS: Vancomycin 750 MG in NS 0.9% 250 ML IVPB SCH ×3 (00:40→22:07)
[2020-02-06] MEDS ORDERED: Lactated Ringers 1000 ml BAG 1,000 ML IV ONE (00:43)
[2020-02-06] MEDS: NS 0.9% 1000 ml BAG 1,000 ML IV SCH ×3 (02:38→21:51)
[2020-02-06 02:53] LABS: ABS Lymphocytes 0.6 10^3/ul (1.0-4.8); ABS Monocytes 0.3 10^3/ul (0-0.8); ABS Neutrophils 11.3 10^3/ul (1.5-7.7); Eosinophil % 0.2 %; Hematocrit 36 % (35-47); Hemoglobin 11.6 g/dL (12.0-16.0); Lymphocyte % 4.9 %; Mean Corpuscular HGB Conc 32 g/dL (31-36); Mean Corpuscular Hemoglobin 32 pg (27-31); Mean Corpuscular Volume 98 fL (80-97); Mean Platelet Volume 9.5 fL (7.4-10.4); Platelet Count 193 10^3/uL (150-450); Red Blood Count 3.63 10^6 /uL (3.70-4.87); Red Cell Distribution Width 15 % (10-15); White Blood Count 12.3 10^3/uL (3.5-10.8)
[2020-02-06] MEDS ORDERED: Acetaminophen IV 1 GM/100ML 0 ML IVPB SCH (03:00)
[2020-02-06] MEDS ORDERED: Acetaminophen IV 1 GM/100ML 100 ML IVPB ONE ×2 (03:00→11:49)
[2020-02-06 03:07] LABS: BUN/Creatinine Ratio 20.4 (8-20); Calcium 9.1 mg/dL (8.6-10.3); EGFR African American 71.5 (>60); EGFR Non-African American 59.1 (>60); Lithium 0.81 mmol/L (0.6-1.2); Potassium 4.2 mmol/L (3.5-5.0)
[2020-02-06] MEDS ORDERED: Lactated Ringers 500 ml BAG 500 ML IV ONE (04:30)
[2020-02-06] MEDS ORDERED: Meropenem 1 GM PREMIX(*) 1 GM/50 ML BAG IV SCH ×2 (05:00)
[2020-02-06] MEDS: Mometasone/Formoter 200/5 MDI INH SCH ×2 (08:51→20:27)
[2020-02-06] MEDS: Aspirin EC 81 mg TAB.EC (enteric coated) PO SCH (11:01)
[2020-02-06] MEDS: Carbidopa/Levodop 25/100 MG TAB PO SCH ×3 (11:25→21:57)
[2020-02-06] MEDS: SPIRIVA Respimat (tiotropium) 2.5 mcg/inh Inhaler INH SCH (13:26)
[2020-02-06] MEDS: cefTRIAXone 1 gm/50 mL NS BAG 1 GM/50 ML BAG IVPB SCH (14:01)
[2020-02-06 14:25] LABS: Urine Appearance Cloudy; Urine Bilirubin Negative (Negative); Urine Blood 1+ (Negative); Urine Color Yellow; Urine Glucose Negative (Negative); Urine Ketones Negative (Negative); Urine Nitrite Negative (Negative); Urine Protein 2+(100 mg/dL) (Negative); Urine Urobilinogen Negative (Negative)
[2020-02-06 14:39] LABS: Urine Bacteria Absent (Absent); Urine Red Blood Cell 3+(>10/hpf) (Absent); Urine Squamous Epithelial Cell Present (Absent); Urine White Blood Cell 3+(>20/hpf) (Absent)
[2020-02-06] MEDS: Lithium Carbonate ER 450mg TAB PO SCH (21:57)
[2020-02-06] MEDS: Carbidopa/Levodop CR 50/200 TAB.CR PO SCH ×2 (21:57→23:30)
[2020-02-06] MEDS: Enoxaparin 40 MG/0.4 ML SYR SUBCUT SCH (21:58)
[2020-02-07] MEDS ORDERED: cefTRIAXone 1 gm/50 mL NS BAG 1 GM/50 ML BAG IVPB SCH (06:00)
[2020-02-07] MEDS: SPIRIVA Respimat (tiotropium) 2.5 mcg/inh Inhaler INH SCH (07:34)
[2020-02-07] MEDS: Mometasone/Formoter 200/5 MDI INH SCH ×2 (07:35→21:23)
[2020-02-07] MEDS: Aspirin EC 81 mg TAB.EC (enteric coated) PO SCH (09:49)
[2020-02-07] MEDS: Carbidopa/Levodop 25/100 MG TAB PO SCH ×2 (09:56→14:31)
[2020-02-07] MEDS: NS 0.9% 1000 ml BAG 1,000 ML IV SCH ×2 (10:01→20:41)
[2020-02-07] MEDS ORDERED: Vancomycin Trough Check NOTE FOLLOW UP ONE (10:30)
[2020-02-07 10:58] LABS: ABS Lymphocytes 0.3 10^3/ul (1.0-4.8); ABS Monocytes 0.4 10^3/ul (0-0.8); ABS Neutrophils 6.2 10^3/ul (1.5-7.7); Eosinophil % 0.2 %; Hematocrit 33 % (35-47); Hemoglobin 10.8 g/dL (12.0-16.0); Lymphocyte % 4.7 %; Mean Corpuscular HGB Conc 33 g/dL (31-36); Mean Corpuscular Hemoglobin 32 pg (27-31); Mean Corpuscular Volume 98 fL (80-97); Mean Platelet Volume 9.5 fL (7.4-10.4); Platelet Count 153 10^3/uL (150-450); Red Blood Count 3.39 10^6 /uL (3.70-4.87); Red Cell Distribution Width 15 % (10-15)
[2020-02-07 11:15] LABS: Calcium 9.2 mg/dL (8.6-10.3); EGFR African American 80.4 (>60); EGFR Non-African American 66.5 (>60); Potassium 3.9 mmol/L (3.5-5.0)
[2020-02-07] MEDS: cefTRIAXone 1 gm/50 mL NS BAG 1 GM/50 ML BAG IVPB SCH (14:34)
[2020-02-07] MEDS ORDERED: Ondansetron ODT 4 mg TAB 4 MG TAB PO PRN (18:00)
[2020-02-07] MEDS: Lithium Carbonate ER 450mg TAB PO SCH (20:26)
[2020-02-07] MEDS: Enoxaparin 40 MG/0.4 ML SYR SUBCUT SCH (20:26)
[2020-02-07] MEDS: Carbidopa/Levodop 25/100 MG TAB G TUBE SCH (23:00)
[2020-02-08] MEDS: Carbidopa/Levodop CR 50/200 TAB.CR PO SCH (03:00)
[2020-02-08 07:28] LABS: ABS Lymphocytes 0.6 10^3/ul (1.0-4.8); ABS Monocytes 0.6 10^3/ul (0-0.8); ABS Neutrophils 5.3 10^3/ul (1.5-7.7); Eosinophil % 0.7 %; Hematocrit 32 % (35-47); Hemoglobin 10.5 g/dL (12.0-16.0); Lymphocyte % 9.6 %; Mean Corpuscular HGB Conc 33 g/dL (31-36); Mean Corpuscular Hemoglobin 32 pg (27-31); Mean Corpuscular Volume 98 fL (80-97); Platelet Count 161 10^3/uL (150-450); Red Blood Count 3.27 10^6 /uL (3.70-4.87); Red Cell Distribution Width 16 % (10-15); White Blood Count 6.7 10^3/uL (3.5-10.8)
[2020-02-08 07:38] LABS: BUN/Creatinine Ratio 18.8 (8-20); Calcium 9.5 mg/dL (8.6-10.3); EGFR African American 85.1 (>60); EGFR Non-African American 70.3 (>60); Magnesium 2.1 mg/dL (1.9-2.7); Potassium 3.8 mmol/L (3.5-5.0)
[2020-02-08] MEDS: Mometasone/Formoter 200/5 MDI INH SCH ×2 (07:39→20:26)
[2020-02-08] MEDS: SPIRIVA Respimat (tiotropium) 2.5 mcg/inh Inhaler INH SCH (07:39)
[2020-02-08] MEDS: NS 0.9% 1000 ml BAG 1,000 ML IV SCH ×3 (08:18→20:54)
[2020-02-08] MEDS ORDERED: Pantoprazole VIAL 40 MG VIAL IV SCH (09:00)
[2020-02-08] MEDS: Carbidopa/Levodop 25/100 MG TAB G TUBE SCH ×3 (10:07→21:25)
[2020-02-08] MEDS: cefTRIAXone 1 gm/50 mL NS BAG 1 GM/50 ML BAG IVPB SCH (15:06)
[2020-02-08] MEDS: Lithium Carbonate ER 450mg TAB PO SCH (21:25)
[2020-02-08] MEDS: Enoxaparin 40 MG/0.4 ML SYR SUBCUT SCH (21:27)
[2020-02-09] MEDS: Carbidopa/Levodop CR 50/200 TAB.CR PO SCH (02:00)
[2020-02-09 07:56] LABS: ABS Lymphocytes 0.7 10^3/ul (1.0-4.8); ABS Monocytes 0.8 10^3/ul (0-0.8); ABS Neutrophils 5.3 10^3/ul (1.5-7.7); Eosinophil % 0.6 %; Hematocrit 34 % (35-47); Hemoglobin 11.3 g/dL (12.0-16.0); Lymphocyte % 10.1 %; Mean Corpuscular HGB Conc 33 g/dL (31-36); Mean Corpuscular Hemoglobin 32 pg (27-31); Mean Corpuscular Volume 98 fL (80-97); Mean Platelet Volume 10.1 fL (7.4-10.4); Platelet Count 178 10^3/uL (150-450); Red Blood Count 3.51 10^6 /uL (3.70-4.87); Red Cell Distribution Width 15 % (10-15); White Blood Count 6.9 10^3/uL (3.5-10.8)
[2020-02-09] MEDS: SPIRIVA Respimat (tiotropium) 2.5 mcg/inh Inhaler INH SCH (08:03)
[2020-02-09] MEDS: Mometasone/Formoter 200/5 MDI INH SCH ×2 (08:05→23:02)
[2020-02-09 08:20] LABS: BUN/Creatinine Ratio 19.7 (8-20); C Reactive Protein 88.87 mg/L (<8.01); Calcium 9.4 mg/dL (8.6-10.3); EGFR African American 90.3 (>60); EGFR Non-African American 74.6 (>60); Potassium 3.6 mmol/L (3.5-5.0)
[2020-02-09] MEDS: Pantoprazole VIAL 40 MG VIAL IV SCH (09:03)
[2020-02-09] MEDS: Carbidopa/Levodop 25/100 MG TAB G TUBE SCH ×3 (10:07→19:26)
[2020-02-09] MEDS: NS 0.9% 1000 ml BAG 1,000 ML IV SCH (10:19)
[2020-02-09] MEDS: cefTRIAXone 1 gm/50 mL NS BAG 1 GM/50 ML BAG IVPB SCH (12:53)
[2020-02-09] MEDS: Lithium Carbonate ER 450mg TAB PO SCH (21:10)
[2020-02-09] MEDS: Enoxaparin 40 MG/0.4 ML SYR SUBCUT SCH (21:11)
[2020-02-09 22:27] LABS: Calcium 9.2 mg/dL (8.6-10.3)
[2020-02-09 22:37] LABS: BUN/Creatinine Ratio 19.7 (8-20); EGFR African American 90.3 (>60); EGFR Non-African American 74.6 (>60)
[2020-02-09 22:38] LABS: Potassium 3.5 mmol/L (3.5-5.0)
[2020-02-10] MEDS: Carbidopa/Levodop CR 50/200 TAB.CR PO SCH (02:14)
[2020-02-10] MEDS: Mometasone/Formoter 200/5 MDI INH SCH ×2 (07:25→19:41)
[2020-02-10] MEDS: SPIRIVA Respimat (tiotropium) 2.5 mcg/inh Inhaler INH SCH (07:26)
[2020-02-10 07:40] LABS: BUN/Creatinine Ratio 19.2 (8-20); Calcium 8.9 mg/dL (8.6-10.3); EGFR African American 94.6 (>60); EGFR Non-African American 78.1 (>60); Potassium 3.7 mmol/L (3.5-5.0)
[2020-02-10] MEDS: Carbidopa/Levodop 25/100 MG TAB G TUBE SCH ×3 (08:31→18:30)
[2020-02-10] MEDS: Pantoprazole VIAL 40 MG VIAL IV SCH (08:31)
[2020-02-10] MEDS ORDERED: D5W 1000 ml BAG 1,000 ML IV SCH (10:00)
[2020-02-10] MEDS: cefTRIAXone 1 gm/50 mL NS BAG 1 GM/50 ML BAG IVPB SCH (11:57)
[2020-02-10 17:25] LABS: Calcium 9.2 mg/dL (8.6-10.3)
[2020-02-10 17:31] LABS: BUN/Creatinine Ratio 19.7 (8-20); EGFR African American 97.6 (>60); EGFR Non-African American 80.7 (>60)
[2020-02-10 18:16] LABS: Potassium 3.5 mmol/L (3.5-5.0)
[2020-02-10] MEDS: Lithium Carbonate ER 450mg TAB PO SCH (20:14)
[2020-02-10] MEDS: Enoxaparin 40 MG/0.4 ML SYR SUBCUT SCH (20:18)
[2020-02-11] MEDS: Carbidopa/Levodop CR 50/200 TAB.CR PO SCH (03:21)
[2020-02-11 07:06] LABS: Calcium 8.9 mg/dL (8.6-10.3); Potassium 3.8 mmol/L (3.5-5.0)
[2020-02-11 07:08] LABS: ABS Eosinophils 0.2 10^3/ul (0-0.6); ABS Lymphocytes 1.6 10^3/ul (1.0-4.8); ABS Monocytes 0.9 10^3/ul (0-0.8); Eosinophil % 2.3 %; Hematocrit 34 % (35-47); Hemoglobin 11.1 g/dL (12.0-16.0); Mean Corpuscular HGB Conc 33 g/dL (31-36); Mean Corpuscular Hemoglobin 32 pg (27-31); Mean Corpuscular Volume 97 fL (80-97); Mean Platelet Volume 9.9 fL (7.4-10.4); Platelet Count 247 10^3/uL (150-450); Red Blood Count 3.46 10^6 /uL (3.70-4.87); Red Cell Distribution Width 15 % (10-15); White Blood Count 8.7 10^3/uL (3.5-10.8)
[2020-02-11 07:11] LABS: BUN/Creatinine Ratio 24.2 (8-20); EGFR African American 106.2 (>60); EGFR Non-African American 87.8 (>60)
[2020-02-11] MEDS: Mometasone/Formoter 200/5 MDI INH SCH ×2 (08:02→20:19)
[2020-02-11] MEDS: SPIRIVA Respimat (tiotropium) 2.5 mcg/inh Inhaler INH SCH (08:03)
[2020-02-11] MEDS: Pantoprazole VIAL 40 MG VIAL IV SCH (09:08)
[2020-02-11] MEDS: Carbidopa/Levodop 25/100 MG TAB G TUBE SCH ×3 (09:08→18:36)
[2020-02-11 10:50] LABS: C Reactive Protein 43.82 mg/L (<8.01)
[2020-02-11] MEDS: cefTRIAXone 1 gm/50 mL NS BAG 1 GM/50 ML BAG IVPB SCH (12:52)
[2020-02-11] MEDS: Carbidopa/Levodop 25/100 MG TAB PO SCH (19:04)
[2020-02-11] MEDS: Lithium Carbonate ER 450mg TAB PO SCH (21:00)
[2020-02-11] MEDS: Enoxaparin 40 MG/0.4 ML SYR SUBCUT SCH (21:02)
[2020-02-12] MEDS: Carbidopa/Levodop CR 50/200 TAB.CR PO SCH (02:46)
[2020-02-12] MEDS: Mometasone/Formoter 200/5 MDI INH SCH ×2 (08:03→19:58)
[2020-02-12] MEDS: SPIRIVA Respimat (tiotropium) 2.5 mcg/inh Inhaler INH SCH (08:03)
[2020-02-12] MEDS: Pantoprazole VIAL 40 MG VIAL IV SCH (08:24)
[2020-02-12] MEDS: Carbidopa/Levodop 25/100 MG TAB PO SCH ×3 (10:33→19:53)
[2020-02-12] MEDS: cefTRIAXone 1 gm/50 mL NS BAG 1 GM/50 ML BAG IVPB SCH (14:30)
[2020-02-12] MEDS: Enoxaparin 40 MG/0.4 ML SYR SUBCUT SCH (19:42)
[2020-02-12] MEDS: Lithium Carbonate ER 450mg TAB PO SCH (21:42)
[2020-02-13] MEDS: Carbidopa/Levodop CR 50/200 TAB.CR PO SCH (02:06)
[2020-02-13] MEDS: Carbidopa/Levodop 25/100 MG TAB PO SCH (07:50)
[2020-02-13] MEDS: SPIRIVA Respimat (tiotropium) 2.5 mcg/inh Inhaler INH SCH (09:33)
[2020-02-13] MEDS: Mometasone/Formoter 200/5 MDI INH SCH (09:33)
[2020-02-13 12:03] VITALS: BP 118/71
== END 2020-02-13 11:30 | disposition home health service (06) | DRG 872 ==
LOC: ED 10:03 → MED 10:03 → OBSVTOIN 10:51 → MED 12:57 → ICU 02-06 00:41 → MED 02-06 19:00
PROVIDERS: ADMIT Hospitalist; ATTEND Internal Medicine

== ENCOUNTER 2020-09-17 13:21 | Inpatient (IN) ==
[2020-09-17] MEDS ORDERED: Cefepime 1 GM in NS 0.9% 50 ML 50 ML IVPB ONE (14:57)
[2020-09-17] MEDS ORDERED: Carbidopa/Levodop 25/100 MG TAB PO ONE (15:23)
[2020-09-17 15:42] LABS: ABS Eosinophils 0.2 10^3/ul (0-0.6); ABS Lymphocytes 1.6 10^3/ul (1.0-4.8); ABS Monocytes 0.5 10^3/ul (0-0.8); ABS Neutrophils 6.4 10^3/ul (1.5-7.7); Hematocrit 41 % (35-47); Hemoglobin 13.9 g/dL (12.0-16.0); Lymphocyte % 18.1 %; Mean Corpuscular HGB Conc 34 g/dL (31-36); Mean Corpuscular Hemoglobin 32 pg (27-31); Mean Corpuscular Volume 96 fL (80-97); Mean Platelet Volume 9.2 fL (7.4-10.4); Platelet Count 289 10^3/uL (150-450); Red Blood Count 4.31 10^6 /uL (3.70-4.87); Red Cell Distribution Width 14 % (10-15); White Blood Count 8.6 10^3/uL (3.5-10.8)
[2020-09-17] MEDS ORDERED: Cefepime 1 GM IV - ED ONCE IV ONE (16:00)
[2020-09-17 16:01] LABS: Calcium 10.7 mg/dL (8.6-10.3); Potassium 4.2 mmol/L (3.5-5.0)
[2020-09-17 16:07] LABS: C Reactive Protein 4.5 mg/L (<8.01); EGFR African American 75.2 (>60); EGFR Non-African American 62.2 (>60)
[2020-09-17] MEDS ORDERED: Ondansetron 4 mg VIAL 2 MG/ML 2 ml VIAL IV PRN (17:06)
[2020-09-17] MEDS ORDERED: Magnesium Hydroxide LIQ 30 ML UDC PO PRN (17:06)
[2020-09-17] MEDS ORDERED: NS 0.9% 1000 ml BAG 1,000 ML IV SCH (17:45)
[2020-09-17 18:09] LABS: Urine Appearance Cloudy; Urine Bilirubin Negative (Negative); Urine Blood 1+ (Negative); Urine Color Yellow; Urine Glucose Negative (Negative); Urine Ketones Negative (Negative); Urine Nitrite Negative (Negative); Urine Protein Negative (Negative); Urine Specific Gravity 1.005 (1.002-1.030); Urine Urobilinogen Negative (Negative)
[2020-09-17 18:10] LABS: Urine Bacteria 1+ (Absent); Urine Red Blood Cell Trace(0-2/hpf) (Absent); Urine Squamous Epithelial Cell Present (Absent); Urine White Blood Cell 2+(11-20/hpf) (Absent)
[2020-09-17] MEDS: Mometasone/Formoter 200/5 MDI INH SCH (19:30)
[2020-09-17] MEDS: Senna TAB 8.6 mg TAB PO SCH (22:53)
[2020-09-17] MEDS: CMCS:Lithium Carb ER 300 mg TAB(NF) PO SCH (22:54)
[2020-09-17] MEDS: Carbidopa/Levodop CR 50/200 TAB.CR PO SCH (22:55)
[2020-09-17] MEDS: Carbidopa/Levodop 25/100 MG TAB PO SCH (22:58)
[2020-09-17] MEDS: Enoxaparin 40 MG/0.4 ML SYR SUBCUT SCH (22:58)
[2020-09-18] MEDS ORDERED: Cefepime 2 GM in Dextrose 2 GM/50 ML BAG IV SCH (06:00)
[2020-09-18 06:53] LABS: ABS Eosinophils 0.3 10^3/ul (0-0.6); ABS Lymphocytes 1.7 10^3/ul (1.0-4.8); ABS Monocytes 0.5 10^3/ul (0-0.8); Eosinophil % 5.3 %; Hematocrit 37 % (35-47); Hemoglobin 12.3 g/dL (12.0-16.0); Lymphocyte % 31.1 %; Mean Corpuscular HGB Conc 34 g/dL (31-36); Mean Corpuscular Hemoglobin 32 pg (27-31); Mean Corpuscular Volume 95 fL (80-97); Mean Platelet Volume 9.3 fL (7.4-10.4); Platelet Count 255 10^3/uL (150-450); Red Blood Count 3.85 10^6 /uL (3.70-4.87); Red Cell Distribution Width 14 % (10-15); White Blood Count 5.5 10^3/uL (3.5-10.8)
[2020-09-18] MEDS: SPIRIVA Respimat (tiotropium) 2.5 mcg/inh Inhaler INH SCH (07:03)
[2020-09-18] MEDS: Mometasone/Formoter 200/5 MDI INH SCH ×2 (07:03→20:01)
[2020-09-18 07:08] LABS: Calcium 9.6 mg/dL (8.6-10.3); EGFR African American 72.4 (>60); EGFR Non-African American 59.8 (>60); Potassium 4.1 mmol/L (3.5-5.0)
[2020-09-18] MEDS: Aspirin EC 81 mg TAB.EC (enteric coated) PO SCH (08:21)
[2020-09-18] MEDS: Carbidopa/Levodop 25/100 MG TAB PO SCH ×3 (08:26→16:37)
[2020-09-18] MEDS ORDERED: Polyethylene Glycol 3350 17 GM PACKET PO PRN (08:50)
[2020-09-18] MEDS: Aztreonam 2 GM in NS 0.9% 100 ml BAG 100 ML IV SCH ×2 (09:35→16:37)
[2020-09-18] MEDS: Senna TAB 8.6 mg TAB PO SCH (16:37)
[2020-09-18] MEDS: Enoxaparin 40 MG/0.4 ML SYR SUBCUT SCH (16:37)
[2020-09-18] MEDS: CMCS:Lithium Carb ER 300 mg TAB(NF) PO SCH (20:13)
[2020-09-18] MEDS: Carbidopa/Levodop CR 50/200 TAB.CR PO SCH (20:15)
[2020-09-19] MEDS: Aztreonam 2 GM in NS 0.9% 100 ml BAG 100 ML IV SCH ×3 (00:39→17:19)
[2020-09-19 05:30] LABS: ABS Eosinophils 0.3 10^3/ul (0-0.6); ABS Lymphocytes 1.7 10^3/ul (1.0-4.8); ABS Monocytes 0.4 10^3/ul (0-0.8); ABS Neutrophils 3.2 10^3/ul (1.5-7.7); Hematocrit 35 % (35-47); Hemoglobin 11.6 g/dL (12.0-16.0); Lymphocyte % 30.6 %; Mean Corpuscular HGB Conc 34 g/dL (31-36); Mean Corpuscular Hemoglobin 32 pg (27-31); Mean Corpuscular Volume 95 fL (80-97); Mean Platelet Volume 9.2 fL (7.4-10.4); Platelet Count 235 10^3/uL (150-450); Red Blood Count 3.65 10^6 /uL (3.70-4.87); Red Cell Distribution Width 14 % (10-15); White Blood Count 5.6 10^3/uL (3.5-10.8)
[2020-09-19 05:51] LABS: Calcium 9.8 mg/dL (8.6-10.3); EGFR African American 88.9 (>60); EGFR Non-African American 73.5 (>60); Magnesium 2.1 mg/dL (1.9-2.7); Potassium 3.8 mmol/L (3.5-5.0)
[2020-09-19] MEDS: Aspirin EC 81 mg TAB.EC (enteric coated) PO SCH (08:12)
[2020-09-19] MEDS: Carbidopa/Levodop 25/100 MG TAB PO SCH ×3 (08:12→17:19)
[2020-09-19] MEDS: SPIRIVA Respimat (tiotropium) 2.5 mcg/inh Inhaler INH SCH (09:32)
[2020-09-19] MEDS: Mometasone/Formoter 200/5 MDI INH SCH ×2 (09:32→21:08)
[2020-09-19] MEDS: Enoxaparin 40 MG/0.4 ML SYR SUBCUT SCH (17:19)
[2020-09-19] MEDS: Senna TAB 8.6 mg TAB PO SCH (17:19)
[2020-09-19] MEDS: CMCS:Lithium Carb ER 300 mg TAB(NF) PO SCH (20:47)
[2020-09-19] MEDS: Carbidopa/Levodop CR 50/200 TAB.CR PO SCH (21:21)
[2020-09-20] MEDS: Aztreonam 2 GM in NS 0.9% 100 ml BAG 100 ML IV SCH ×3 (00:55→17:35)
[2020-09-20] MEDS: SPIRIVA Respimat (tiotropium) 2.5 mcg/inh Inhaler INH SCH (07:42)
[2020-09-20] MEDS: Mometasone/Formoter 200/5 MDI INH SCH ×2 (07:43→19:28)
[2020-09-20] MEDS: Aspirin EC 81 mg TAB.EC (enteric coated) PO SCH (08:46)
[2020-09-20] MEDS: Carbidopa/Levodop 25/100 MG TAB PO SCH ×3 (08:58→17:32)
[2020-09-20 11:29] LABS: ABS Eosinophils 0.3 10^3/ul (0-0.6); ABS Lymphocytes 1.4 10^3/ul (1.0-4.8); ABS Monocytes 0.4 10^3/ul (0-0.8); ABS Neutrophils 3.3 10^3/ul (1.5-7.7); Eosinophil % 5.8 %; Hematocrit 38 % (35-47); Hemoglobin 12.5 g/dL (12.0-16.0); Lymphocyte % 25.5 %; Mean Corpuscular HGB Conc 33 g/dL (31-36); Mean Corpuscular Hemoglobin 32 pg (27-31); Mean Corpuscular Volume 96 fL (80-97); Mean Platelet Volume 9.8 fL (7.4-10.4); Platelet Count 245 10^3/uL (150-450); Red Blood Count 3.91 10^6 /uL (3.70-4.87); Red Cell Distribution Width 15 % (10-15); White Blood Count 5.4 10^3/uL (3.5-10.8)
[2020-09-20 11:48] LABS: Calcium 10.1 mg/dL (8.6-10.3); EGFR African American 94.6 (>60); EGFR Non-African American 78.1 (>60); Potassium 4.5 mmol/L (3.5-5.0)
[2020-09-20] MEDS: Enoxaparin 40 MG/0.4 ML SYR SUBCUT SCH (17:32)
[2020-09-20] MEDS: Senna TAB 8.6 mg TAB PO SCH (17:32)
[2020-09-20] MEDS: CMCS:Lithium Carb ER 300 mg TAB(NF) PO SCH (21:06)
[2020-09-20] MEDS: Carbidopa/Levodop CR 50/200 TAB.CR PO SCH (21:08)
[2020-09-21] MEDS: Aztreonam 2 GM in NS 0.9% 100 ml BAG 100 ML IV SCH ×2 (00:54→09:50)
[2020-09-21] MEDS: SPIRIVA Respimat (tiotropium) 2.5 mcg/inh Inhaler INH SCH (07:36)
[2020-09-21] MEDS: Mometasone/Formoter 200/5 MDI INH SCH (07:36)
[2020-09-21 09:21] VITALS: BP 140/57
[2020-09-21] MEDS: Carbidopa/Levodop 25/100 MG TAB PO SCH (09:50)
[2020-09-21] MEDS: Aspirin EC 81 mg TAB.EC (enteric coated) PO SCH (09:51)
== END 2020-09-21 12:05 | disposition home or self-care (01) | DRG 699 ==
LOC: ED 13:21 → MED 13:21
PROVIDERS: ADMIT Internal Medicine; ATTEND Hospitalist

== ENCOUNTER 2020-10-22 14:32 | Inpatient (IN) ==
[2020-10-22 16:25] LABS: ABS Eosinophils 0.2 10^3/ul (0-0.6); ABS Lymphocytes 1.5 10^3/ul (1.0-4.8); ABS Monocytes 0.5 10^3/ul (0-0.8); Eosinophil % 2.8 %; Hematocrit 41 % (35-47); Hemoglobin 13.3 g/dL (12.0-16.0); Lymphocyte % 18.4 %; Mean Corpuscular HGB Conc 33 g/dL (31-36); Mean Corpuscular Hemoglobin 32 pg (27-31); Mean Corpuscular Volume 97 fL (80-97); Mean Platelet Volume 9.1 fL (7.4-10.4); Platelet Count 278 10^3/uL (150-450); Red Blood Count 4.19 10^6 /uL (3.70-4.87); Red Cell Distribution Width 14 % (10-15); White Blood Count 8.2 10^3/uL (3.5-10.8)
[2020-10-22 16:46] LABS: Anion Gap 5 mmol/L (2-11); Blood Urea Nitrogen 13 mg/dL (6-24); C Reactive Protein 3.63 mg/L (<8.01); CO2 Carbon Dioxide 32 mmol/L (22-32); Calcium 10.5 mg/dL (8.6-10.3); Chloride 101 mmol/L (101-111); EGFR African American 73.3 (>60); EGFR Non-African American 60.6 (>60); Glucose 113 mg/dL (70-100); Potassium 4.2 mmol/L (3.5-5.0); Sodium 138 mmol/L (135-145)
[2020-10-22] MEDS ORDERED: NS 0.9% 1000 ml BAG 1,000 ML IV ONE ×2 (16:58→17:14)
[2020-10-22] MEDS ORDERED: cefTRIAXone 1 gm/50 mL NS BAG 1 GM/50 ML BAG IV ONE (17:04)
[2020-10-22 18:43] LABS: Urine Appearance Cloudy; Urine Bilirubin Negative (Negative); Urine Blood Negative (Negative); Urine Color Yellow; Urine Glucose Negative (Negative); Urine Ketones Trace (Negative); Urine Nitrite Negative (Negative); Urine Protein Negative (Negative); Urine Urobilinogen Negative (Negative)
[2020-10-22 18:49] LABS: Urine Bacteria 3+ (Absent); Urine Red Blood Cell 2+(6-10/hpf) (Absent); Urine Squamous Epithelial Cell Present (Absent); Urine White Blood Cell 3+(>20/hpf) (Absent)
[2020-10-22 19:58] LABS: Lithium 0.47 mmol/L (0.6-1.2)
[2020-10-22] MEDS: Carbidopa/Levodop CR 50/200 TAB.CR PO SCH (22:49)
[2020-10-22] MEDS: Magnesium Hydroxide LIQ 30 ML UDC PO PRN (22:49)
[2020-10-22] MEDS: Heparin 5000 UNITS/ML 1 mL VIAL SUBCUT SCH (22:49)
[2020-10-22] MEDS: CMCS: Lithium Carb ER 300 mg TAB(NF) PO SCH (22:50)
[2020-10-22] MEDS: NS 0.9% 1000 ml BAG 1,000 ML IV SCH (22:54)
[2020-10-23] MEDS: Heparin 5000 UNITS/ML 1 mL VIAL SUBCUT SCH ×3 (05:03→20:08)
[2020-10-23] MEDS: Mometasone/Formoter 200/5 MDI INH SCH ×2 (07:43→20:15)
[2020-10-23] MEDS: SPIRIVA Respimat (tiotropium) 2.5 mcg/inh Inhaler INH SCH (07:45)
[2020-10-23] MEDS ORDERED: Aztreonam 1 GM in NS 0.9% 50 ML 50 ML IV SCH (08:00)
[2020-10-23] MEDS ORDERED: AZTREONAM IV ONE ×2 (08:00)
[2020-10-23] MEDS ORDERED: NS 0.9% IV ONE ×2 (08:00)
[2020-10-23] MEDS: NS 0.9% 1000 ml BAG 1,000 ML IV SCH (08:13)
[2020-10-23] MEDS: Aspirin EC 81 mg TAB.EC (enteric coated) PO SCH (09:18)
[2020-10-23] MEDS: Magnesium Hydroxide LIQ 30 ML UDC PO PRN (09:20)
[2020-10-23] MEDS: Carbidopa/Levodop 25/100 MG TAB PO SCH ×3 (09:22→18:20)
[2020-10-23] MEDS: AZTREONAM 1 GM in SODIUM CHLORIDE 0.9% 50 ML IV SCH ×2 (15:55→23:29)
[2020-10-23] MEDS ORDERED: Senna/Docusate 8.6/50 mg (NF) TAB PO SCH (18:00)
[2020-10-23] MEDS: Senna TAB 8.6 mg TAB PO SCH (20:08)
[2020-10-23] MEDS: Carbidopa/Levodop CR 50/200 TAB.CR PO SCH (20:08)
[2020-10-23] MEDS: CMCS: Lithium Carb ER 300 mg TAB(NF) PO SCH (20:09)
[2020-10-24] MEDS: Heparin 5000 UNITS/ML 1 mL VIAL SUBCUT SCH ×3 (05:25→21:31)
[2020-10-24] MEDS: Mometasone/Formoter 200/5 MDI INH SCH ×2 (08:05→20:07)
[2020-10-24] MEDS: SPIRIVA Respimat (tiotropium) 2.5 mcg/inh Inhaler INH SCH (08:07)
[2020-10-24] MEDS: Aspirin EC 81 mg TAB.EC (enteric coated) PO SCH (09:45)
[2020-10-24] MEDS: AZTREONAM 1 GM in SODIUM CHLORIDE 0.9% 50 ML IV SCH ×2 (09:47→17:11)
[2020-10-24] MEDS: Carbidopa/Levodop 25/100 MG TAB PO SCH ×3 (10:22→17:11)
[2020-10-24] MEDS: Senna TAB 8.6 mg TAB PO SCH (21:31)
[2020-10-24] MEDS: Carbidopa/Levodop CR 50/200 TAB.CR PO SCH (21:35)
[2020-10-24] MEDS: CMCS: Lithium Carb ER 300 mg TAB(NF) PO SCH (21:36)
[2020-10-25] MEDS: AZTREONAM 1 GM in SODIUM CHLORIDE 0.9% 50 ML IV SCH ×3 (00:25→17:28)
[2020-10-25] MEDS: Heparin 5000 UNITS/ML 1 mL VIAL SUBCUT SCH ×3 (05:03→20:51)
[2020-10-25] MEDS: Carbidopa/Levodop 25/100 MG TAB PO SCH ×3 (09:06→16:19)
[2020-10-25] MEDS: Aspirin EC 81 mg TAB.EC (enteric coated) PO SCH (09:08)
[2020-10-25] MEDS: Mometasone/Formoter 200/5 MDI INH SCH ×2 (09:52→19:14)
[2020-10-25] MEDS: SPIRIVA Respimat (tiotropium) 2.5 mcg/inh Inhaler INH SCH (09:53)
[2020-10-25 11:23] LABS: ALT 7 U/L (7-52); AST 12 U/L (13-39); Albumin 4.1 g/dL (3.2-5.2); Albumin/Globulin Ratio 1.6 (1-3); Alkaline Phosphatase 129 U/L (35-149); Globulin 2.6 g/dL (2-4); Total Protein 6.7 g/dL (6.4-8.9)
[2020-10-25 14:12] LABS: TSH Ultra Thyroid Stim Horm 0.72 mcIU/mL (0.34-5.60)
[2020-10-25] MEDS ORDERED: Albuterol HFA INHALER 8 gm MDI INH PRN (17:20)
[2020-10-25] MEDS: Carbidopa/Levodop CR 50/200 TAB.CR PO SCH (20:51)
[2020-10-25] MEDS: Senna TAB 8.6 mg TAB PO SCH (20:52)
[2020-10-25] MEDS: CMCS: Lithium Carb ER 300 mg TAB(NF) PO SCH (20:52)
[2020-10-26] MEDS: AZTREONAM 1 GM in SODIUM CHLORIDE 0.9% 50 ML IV SCH ×3 (00:15→15:50)
[2020-10-26] MEDS: Heparin 5000 UNITS/ML 1 mL VIAL SUBCUT SCH ×3 (05:11→20:58)
[2020-10-26] MEDS: Aspirin EC 81 mg TAB.EC (enteric coated) PO SCH (08:35)
[2020-10-26] MEDS: Carbidopa/Levodop 25/100 MG TAB PO SCH ×3 (08:35→17:21)
[2020-10-26] MEDS: Mometasone/Formoter 200/5 MDI INH SCH ×2 (09:53→19:11)
[2020-10-26] MEDS: SPIRIVA Respimat (tiotropium) 2.5 mcg/inh Inhaler INH SCH (09:54)
[2020-10-26] MEDS: Magnesium Hydroxide LIQ 30 ML UDC PO PRN (17:23)
[2020-10-26] MEDS: Carbidopa/Levodop CR 50/200 TAB.CR PO SCH (20:56)
[2020-10-26] MEDS: Senna TAB 8.6 mg TAB PO SCH (20:58)
[2020-10-26] MEDS: CMCS: Lithium Carb ER 300 mg TAB(NF) PO SCH (20:58)
[2020-10-27] MEDS: AZTREONAM 1 GM in SODIUM CHLORIDE 0.9% 50 ML IV SCH ×3 (00:18→15:42)
[2020-10-27] MEDS: Heparin 5000 UNITS/ML 1 mL VIAL SUBCUT SCH ×3 (05:02→21:20)
[2020-10-27] MEDS: Aspirin EC 81 mg TAB.EC (enteric coated) PO SCH (09:38)
[2020-10-27] MEDS: Carbidopa/Levodop 25/100 MG TAB PO SCH ×3 (09:45→17:00)
[2020-10-27] MEDS: Mometasone/Formoter 200/5 MDI INH SCH ×2 (10:08→21:36)
[2020-10-27] MEDS: SPIRIVA Respimat (tiotropium) 2.5 mcg/inh Inhaler INH SCH (10:09)
[2020-10-27] MEDS: Senna TAB 8.6 mg TAB PO SCH (21:22)
[2020-10-27] MEDS: Carbidopa/Levodop CR 50/200 TAB.CR PO SCH (21:22)
[2020-10-27] MEDS: CMCS: Lithium Carb ER 300 mg TAB(NF) PO SCH (21:22)
[2020-10-28] MEDS: AZTREONAM 1 GM in SODIUM CHLORIDE 0.9% 50 ML IV SCH ×2 (00:16→09:26)
[2020-10-28] MEDS: Heparin 5000 UNITS/ML 1 mL VIAL SUBCUT SCH (06:07)
[2020-10-28] MEDS: Mometasone/Formoter 200/5 MDI INH SCH (08:59)
[2020-10-28] MEDS: SPIRIVA Respimat (tiotropium) 2.5 mcg/inh Inhaler INH SCH (09:09)
[2020-10-28] MEDS: Aspirin EC 81 mg TAB.EC (enteric coated) PO SCH (09:26)
[2020-10-28] MEDS: Carbidopa/Levodop 25/100 MG TAB PO SCH (09:32)
[2020-10-28 13:30] VITALS: BP 109/68
== END 2020-10-28 13:45 | DRG 699 ==
LOC: MEDTELE 14:32 → ED 14:32 → MEDTELE 20:57 → MED 10-27 20:00
PROVIDERS: ADMIT Hospitalist; ATTEND Internal Medicine